=== PATIENT | female | born 1945 | race Caucasian/White ===

== ENCOUNTER 2017-09-08 14:48 | Inpatient (IN) | payer MEDICARE, OTHER, SELFPAY ==
[2017-09-08] VITALS (8 sets, daily range): BP systolic 129–151; BP diastolic 51–86; PULSE 98–124; RESP 20–26; TEMP 34.7–36.8; O2SAT 97–99; BMI 18.6; BMI 17.3
--- NOTE | 2017-09-08 15:17 | RAD_ITS ---
STUDY: X-RAY CHEST REASON FOR EXAM: Female, 71 years old. Cough and chest congestion. TECHNIQUE: PA and lateral views of the chest. COMPARISON: Prior comparison studies are not available for review at this time. FINDINGS: Lungs are hyperexpanded. There is perihilar interstitial thickening present in both lungs. There is minimal lung markings at the right lung apex possibly related to large bleb or bulla. There is a nodular area in the right upper lobe that may represent pulmonary fibrosis. There may be right basilar subsegmental atelectasis. There is no demonstrated pleural abnormality. There is mild cardiac enlargement. Normal mediastinum and lindsey. There is prominence of the pulmonary hilar arteries with peripheral pulmonary vascular congestion. There is atherosclerotic calcification of the aortic arch with tortuosity. There is demineralization of the osseous structures. Normal visualized ribs, clavicles, and shoulders. There is no demonstrated abnormality of the visualized soft tissue structures of the upper abdomen. RAD/Chest PA and Lateral IMPRESSION: 1. Abnormal appearance of the right upper lobe with minimal lung markings suggests large bleb or bulla and questionable pulmonary nodule. 2. Cardiomegaly and pulmonary congestion. Electronically Signed: Shireen Arango MD at 16:41 EST , Service support ,
--- NOTE | 2017-09-08 15:17 | EKG12_ITS ---
Test Reason : SOB Blood Pressure : / mmHG Vent. Rate : 090 BPM Atrial Rate : 105 BPM P-R Int : 000 ms QRS Dur : 096 ms QT Int : 360 ms P-R-T Axes : 000 151 052 degrees QTc Int : 440 ms Atrial fibrillation Abnormal ECG Confirmed by RAJANI VERAS, LIDA ([id number]), staff editor CRISTIAN CAMARA ([id number] on 09/14/2017 4:04:37 PM Referred By: LEENA Confirmed By:LIDA GERARD MD
[2017-09-08] MEDS: Ipratropium/Albuterol Sulfate 3 ML AMPUL.NEB INHALATION (15:35)
[2017-09-08] MEDS: 0.9% Normal Saline 1,000 ML 1000 ML IV (16:00)
[2017-09-08 16:23] LABS: Absolute Neutrophil Count 9.2 X10^3/uL (2.0-7.7); Basophil# 0.01 X10^3/uL; Basophil% 0.1 % (0-1); Eosinophils% 0.8 % (0-5); Hematocrit 38.3 % (37-47); Hemoglobin 11.8 g/dl (12.0-15.0); Lymphocyte % 15.2 % (19-41); Mean Corp Hgb Conc 30.8 g/gl (32-36); Mean Corpuscular Hgb 26.2 pg (27.0-32.0); Mean Corpuscular Volume 84.9 fL (81-99); Mean Platelet Vol. 9.6 fl (6.2-12.0); Monocyte# 1.26 X10^3/uL; Monocyte% 10.1 % (0-10); Neutrophil # 9.22 X10^3/uL (2.7-7.7); Neutrophil % 73.5 % (47-70); Platelet Count 220 K/mm3 (150-450); RBC Distribution Width CV 16.1 % (11.6-14.6); RBC Distribution Width SD 49.5 fl (35.1-43.9); Red Blood Count 4.51 M/mm3 (4.2-5.4); White Blood Count 12.5 K/mm3 (4.4-11.0)
[2017-09-08 16:30] LABS: POSITIVE COUNT NO; POSITIVE DIFFERENTIAL NO; POSITIVE MORPHOLOGY NO
[2017-09-08 16:32] LABS: Anion Gap 3 (5-15); BUN 9 mg/dL (7-18); BUN/Creat Ratio 20.9 RATIO (10-20); Calcium,Total 8.5 mg/dL (8.5-10.1); Chloride 99 mmol/L (98-107); Creatinine, Serum 0.43 mg/dL (0.55-1.02); EST Glomerular Filtration Rate 153 mL/min (>60); Est Glom Filt Rate - Afr Amer 185 mL/min (>60); Estimated Creatinine Clearance 41.37 ml/min; Glucose 77 mg/dL (70-110); Potassium 4.6 mmol/L (3.5-5.1); Sodium Level 136 mmol/L (136-145)
[2017-09-08 16:41] LABS: Lactic Acid 1.3 mmol/L (0.4-2.0)
--- NOTE | 2017-09-08 17:14 | ED.VISSUMM ---
- ER Visit Summary Date of Service: 09/08/17 Chief Complaint: Cough History of Present Illness: The patient is a 71 F who presents with a cough. She has a history of recurrent pneumonias. She has had a previous lung resection with removal of the right upper lobe. She has a history of MRSA pneumonia. She states she has a chronic cough which has been worse particularly in the last 2-3 days. She was treated with Levaquin and recently completed this without improvement. She complains of generalized malaise and decreased energy. She did have a sputum culture last week which grew MRSA. With her allergies she would be limited to vancomycin or linezolid for treatment. She uses home oxygen as needed but has been needing to use it more in the last few days. Physical Examination: Afebrile heart rate 114 pulse ox 99% on 2 L. Heart irregularly irregular and tachycardic Patient has right-sided rales no rhonchi or wheezing Abdomen soft Test Results: Chest x-ray limited given chronic changes but does show some cardiomegaly and pulmonary congestion as well as abnormal appearance of the right upper lobe. Laboratory studies notable for white blood cell count 12.5 normal lactic acid. Blood cultures were sent. EKG showed atrial fibrillation at a rate of 90. Emergency Department Course and Treatment: Patient was given IV fluids and a DuoNeb aerosol. On reevaluation her heart rate has ranged from 90s-110. Given recent positive sputum culture with increasing shortness of breath and sputum and right-sided rales I do believe this represents pneumonia. Patient was given IV vancomycin. She will be discussed with the hospitalist and admitted. Treatment Plan: [] Disposition: Admit Impression: MRSA pneumonia Atrial fibrillation with RVR This note was generated with Luminescent dictation software. It may contain incorrect words, spelling, and punctuation that were not noted in review of the chart prior to signing ED Disposition - Plan for ED Patient: Chief Complaint: Cold Sx Referrals: Christo Wilde MD [Primary Care Provider] -
--- NOTE | 2017-09-08 17:51 | PCM.HP.STD ---
<Matteo Silva - Last Filed: 09/08/17 17:51> Problem List (1) MRSA (methicillin resistant staphylococcus aureus) pneumonia Status: Acute Qualifiers: Laterality: unspecified laterality (2) Atrial fibrillation with RVR Status: Acute (3) Takotsubo cardiomyopathy Status: Resolved Comment: EF in August of 2016 was 45-50%, previously 20% (4) Bronchiectasis Status: Chronic (5) Pulmonary hypertension Status: Chronic (6) Cardiomyopathy Status: Chronic (7) RUL resection Status: Resolved History of Present Illness Date of Admission: 09/08/17 Chief Complaint: cough The patient is a 71 year old F with a history of bronchiectasis, RUL lobectomy, prior MRSA, pseudomonas, and fungal pneumonia, pulmonary HTN, chronic A fib, and nonischemic cardiomyopathy who presented to the ER with a worsening cough. She initially presented to Dr. Angel about 10 days ago complaining of a productive cough and was placed on 7 days of levaquin, provided a sputum culture, and told to follow up. She also has been chronically taking azithromycin 3 days per week prophylactically as she has a very severe pneumonia history. She was supposed to have an outpatient appointment with ID but she felt worse so she reported to the ER prior to this occurring. She is SOB with exertion. She denies fevers, chills, pleuritic pain, CP. No hemoptysis. She is producing copious amounts of green sputum. She is tachycardic with AF but has no sensation of it denying palpitations or racing in her chest. She has no LH or dizziness. She reports generalized weakness and malaise. No muscle aches. No dysuria. No diarrhea, N/V. [] Past Medical History Past Medical History (Chronic Problems): Chronic Problems (Last Reviewed 09/01/17 @ 16:14 by Mita Busch) PND (paroxysmal nocturnal dyspnea) (Chronic) Bronchiectasis (Chronic) Atrial fibrillation (Chronic) Pulmonary hypertension (Chronic) Cardiomyopathy (Chronic) Chronic atrial fibrillation (Chronic) Hypomagnesemia (Chronic) Recheck magnesium in 48 hours Allergies sulfamethoxazole [From Bactrim] Allergy (Verified 09/08/17 14:51) Hives trimethoprim [From Bactrim] Allergy (Verified 09/08/17 14:51) Hives verapamil Allergy (Verified 09/08/17 14:51) Unknown itraconazole Adverse Reaction (Verified 09/08/17 14:51) Vomiting SODIUM PENTATHOL Allergy (Uncoded 09/08/17 14:51) Other JAUNDICE Home Medications: Ambulatory Orders Medication Instructions Recorded Multivitamin [Daily Multiple 1 ea PO DAILY 08/04/15 Vitamin] Apixaban [Eliquis] 2.5 mg PO BID #60 tab 12/05/15 Levothyroxine [Synthroid] 88 mcg PO DAILY@0600 #30 tab 12/05/15 Magnesium Oxide [Mag-Ox 400] 400 mg PO BIDCM #60 tab 12/05/15 Trazodone HCl [Desyrel] 50 mg PO QHS #30 tab 12/05/15 Cholecalciferol (Vitamin D3) 2,000 unit PO DAILY 10/30/16 [Vitamin D3] Albuterol Inhaler [Ventolin Hfa] 1 - 2 puff INHALATION Q2H PRN PRN 11/21/16 #1 inhaler Diltiazem CD [Cardizem CD] 120 mg PO Q12 #60 cap 11/21/16 Famotidine [Pepcid] 20 mg PO BID PRN 04/18/17 Formoterol Fumarate [Perforomist] 20 mcg INHALATION BID 04/18/17 Guaifenesin [Mucinex] 1,200 mg PO BID PRN 04/18/17 Sertraline HCl [Zoloft] 50 mg PO DAILY 04/18/17 albuterol sulfate 2.5 mg/3 mL 2.5 mg INHALATION Q4H PRN ml 08/31/17 (0.083 %) solution for nebulization ipratropium-albuterol 0.5 mg-3 3 ml INHALATION Q6H PRN ml 08/31/17 mg(2.5 mg base)/3 mL nebulization soln lorazepam 0.5 mg tablet 0.5 mg PO QDAY PRN tab 08/31/17 carvedilol 12.5 mg tablet 6.25 mg PO BID #30 tab 09/01/17 furosemide 20 mg tablet 20 mg PO DAILY PRN 09/01/17 Surgical History: cholecystectomy, hysterectomy, - - thyroidectomy, cholecystectemy, bile duct stones removed, right sided partial lung resection Psychiatric History: No pertinent psych hx 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 Denies: Chills, Fever, Weight Change Eyes: Denies: Blurred vision, Double vision, Vision Change HEENT: Denies: Difficulty Hearing, Difficulty Swallowing, Head Aches, Hearing Changes, Nasal bleeding, Nasal Congestion, Sinus Congestion, Sinus Drainage Cardiovascular: Denies: Chest Pain, Chest Pressure, Chest Tightness, Edema, Heaviness, Light Headedness, Palpitations, Paroxysmal Noc. Dyspnea, Syncope Respiratory: Reports: Cough, Shortness of Breath, Shortness of breath upon exertion, Sputum production. Denies: Pleuritic Pain, Shortness of breath at rest, Wheezing Gastrointestinal: Denies: Abdominal Pain, Diarrhea, Nausea, Vomiting Genitourinary: Denies: Dysuria Musculoskeletal: Denies: Joint Pain, Joint Tenderness Skin: Denies: Rash, Wounds Neurological: Denies: Numbness, Tingling, Focal weakness Psychiatric: Denies: Anxiety, Depression, Homicidal Ideations, Suicidal Ideations Hematologic/ Lymphatic: Denies: Easy Bruising, Easy Bleeding VTE Information - Inpt Only VTE Present on Admission: No VTE Mechan Device Prophylaxis: SCD's VTE Pharm Prophylaxis ordered?: Yes Patient Problems: Active and Suspected Problems (Last Reviewed 09/01/17 @ 16:14 by Mita Busch) MRSA (methicillin resistant staphylococcus aureus) pneumonia (Acute) - Physical Exam General: Alert, Oriented x3, Cooperative HEENT: Atraumatic, PERRLA, EOMI, Normocephalic Neck: Supple, No JVD, Negative Carotid Bruits Lungs: Rales - BL Cardiovascular: Irregular Rate, Tachycardic Abdomen: Bowel Sounds Present, Soft, Non Tender Extremities: No edema, Capillary Refill Less than 3 Seconds Skin: No rashes, No breakdown Musculoskeletal: No Tenderness to Palpation of Joints or Extremities Neurological: Cranial nerves II-XII grossly intact Psych/Mental Status: Normal Affect, Appropriate, Alert and oriented to time, place, person, mood and affect Vital Signs Temp Pulse Resp BP Pulse Ox 94.4 F L 116 H 26 H 151/86 H 98 09/08/17 14:51 09/08/17 17:30 09/08/17 17:30 09/08/17 17:30 09/08/17 17:30 Oxygen Flow Rate 2 Oxygen Delivery Method Nasal Cannula Weight: 52.3 kg Body Mass Index (BMI) 18.6 Laboratory Tests Past 24 Hrs 09/08/17 09/08/17 09/08/17 16:00 16:00 16:00 WBC 12.5 H RBC 4.51 Hgb 11.8 L Hct 38.3 MCV 84.9 MCH 26.2 L MCHC 30.8 L RDW 16.1 H RDW Differential 49.5 H Plt Count 220 MPV 9.6 Immature Gran % (Auto) 0.300 Neut % (Auto) 73.5 H Lymph % (Auto) 15.2 L Garland % (Auto) 10.1 H Eos % (Auto) 0.8 Baso % (Auto) 0.1 Absolute Neuts (auto) 9.2 H Absolute Lymphs (auto) 1.90 Total Counted Not Reportable Sodium 136 Potassium 4.6 Chloride 99 Carbon Dioxide 34.0 H Anion Gap 3 L BUN 9 Creatinine 0.43 L Estim Creat Clear Calc 41.37 Est GFR (MDRD) Af Amer 185 Est GFR (MDRD) Non-Af 153 BUN/Creatinine Ratio 20.9 H Glucose 77 Lactic Acid 1.3 Calcium 8.5 Assessment/Plan Active and Suspected Problems (Last Reviewed 09/01/17 @ 16:14 by Mita Busch) MRSA (methicillin resistant staphylococcus aureus) pneumonia (Acute) 1. Pneumonia - MRSA as per recent sputum culture. Hx pseudomonas and fungal (unknown type). Pt known to Dr. Angel - C/S, also C/S to ID. Start Vanc and Zosyn. Blood cultures pending. Add mucinex, aerosols, PEP, IS, HOB elevation. + Leukocytosis, tachycardia. CO2 is slightly elevated with a low anion gap. Lactate is negative. CXR also shows cardiomegaly and pulmonary congestion. 2. AF with RVR - likely 2/2 acute infection. Continue home diltiazem, coreg, and eliquis and trend. Pt of Dr. Welsh. 3. Hx Bronchiectasis, partial RU lobectomy, and pulmonary HTN complicating above 4. HTN somewhat elevated - trend 5. nonischemic cardiomyopathy - Per most recent cardiology note last EF was 45-50% and RVSP 40 mmHg from 2016 at that time recommended a repeat echo. 6. Hypothyroid - continue synthroid DVT ppx: eliquis DC planning: pt reports generalized weakness, get PTOT This patient was seen by Matteo Silva PA-C under the supervision of Dr. Bruce. <Marin Bruce - Last Filed: 09/08/17 18:20> Problem List (1) MRSA (methicillin resistant staphylococcus aureus) pneumonia Status: Acute Qualifiers: Laterality: unspecified laterality (2) Acute on chronic respiratory failure with hypoxia and hypercapnia Status: Acute (3) Acute respiratory failure with hypoxia Status: Acute (4) Acute respiratory insufficiency Status: Acute (5) Atrial fibrillation with RVR Status: Acute (6) HCAP (healthcare-associated pneumonia) Status: Acute (7) Hemoptysis Status: Acute (8) Chronic atrial fibrillation Status: Chronic (9) PND (paroxysmal nocturnal dyspnea) Status: Chronic (10) Pulmonary hypertension Status: Chronic (11) RUL resection Status: Resolved (12) Takotsubo cardiomyopathy Status: Resolved Comment: EF in August of 2016 was 45-50%, previously 20% History of Present Illness The patient is a 71 year old F claims worsening cough. 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 Patient was on Levaquin but was not getting better. Notified of the culture results on Tuesday and was scheduled to see infectious disease doctor in the [facility] later on this month. Patient has just gotten worse during this time and presented to the emergency room. Patient's culture from the showed MRSA. Patient received vancomycin in the emergency room. Patient is being admitted for MRSA pneumonia and to initiate antibiotics. Patient has had MRSA pneumonia before. [] Past Medical History Allergies sulfamethoxazole [From Bactrim] Allergy (Verified 09/08/17 14:51) Hives trimethoprim [From Bactrim] Allergy (Verified 09/08/17 14:51) Hives verapamil Allergy (Verified 09/08/17 14:51) Unknown itraconazole Adverse Reaction (Verified 09/08/17 14:51) Vomiting SODIUM PENTATHOL Allergy (Uncoded 09/08/17 14:51) Other JAUNDICE Surgical History: cholecystectomy, hysterectomy, - Lives: Spouse/ Significant Other Smoking Status: Never smoker Tobacco Use: Non-smoker Alcohol: None Drugs: None - *Family History Maternal Family History: Family History (Last Reviewed 09/01/17 @ 16:14 by Mita Busch) Father Heart disease History Items: No pertinent history Paternal Family History: Family History (Last Reviewed 09/01/17 @ 16:14 by Mita Busch) Father Heart disease History Items: Cancer Review of Systems Constitutional: Reports: Malaise, Weakness, Fatigue. Denies: Chills, Fever, Weight Change Eyes: Denies: Blurred vision, Double vision, Vision Change HEENT: Denies: Difficulty Hearing, Difficulty Swallowing, Head Aches, Hearing Changes, Nasal bleeding, Nasal Congestion, Sinus Congestion, Sinus Drainage Cardiovascular: Denies: Chest Pain, Chest Pressure, Chest Tightness, Edema, Heaviness, Light Headedness, Palpitations, Paroxysmal Noc. Dyspnea, Syncope Respiratory: Reports: Cough, Shortness of Breath, Shortness of breath upon exertion, Sputum production. Denies: Pleuritic Pain, Shortness of breath at rest, Wheezing Gastrointestinal: Denies: Abdominal Pain, Diarrhea, Nausea, Vomiting Genitourinary: Denies: Dysuria Musculoskeletal: Denies: Joint Pain, Joint Tenderness Skin: Denies: Rash, Wounds Neurological: Denies: Focal weakness, Numbness, Tingling Psychiatric: Denies: Anxiety, Depression, Homicidal Ideations, Suicidal Ideations Hematologic/ Lymphatic: Denies: Easy Bruising, Easy Bleeding VTE Information - Inpt Only VTE Present on Admission: No VTE Pharm Prophylaxis ordered?: Yes - Physical Exam General: Alert, Oriented x3, Cooperative HEENT: Atraumatic, Normocephalic Neck: No Nodes, Thyroid Normal Size and Texture Lungs: - - Diminished on the right. Crackles throughout the left. Cardiovascular: Regular rate, Regular Rhythm, Normal S1, Normal S2, No murmurs Abdomen: Bowel Sounds Present, Soft, Non Tender Extremities: No edema, No Calf Tenderness Skin: No rashes, No breakdown Musculoskeletal: No Tenderness to Palpation of Joints or Extremities, No Muscle Wasting Psych/Mental Status: Normal Affect, Appropriate Vital Signs Temp Pulse Resp BP Pulse Ox 34.7 C L 116 H 26 H 151/86 H 98 09/08/17 14:51 09/08/17 17:30 09/08/17 17:30 09/08/17 17:30 09/08/17 17:30 Oxygen Flow Rate 2 Oxygen Delivery Method Nasal Cannula Weight: 52.3 kg Body Mass Index (BMI) 18.6 Laboratory Tests Past 24 Hrs 09/08/17 09/08/17 09/08/17 16:00 16:00 16:00 WBC 12.5 H RBC 4.51 Hgb 11.8 L Hct 38.3 MCV 84.9 MCH 26.2 L MCHC 30.8 L RDW 16.1 H RDW Differential 49.5 H Plt Count 220 MPV 9.6 Immature Gran % (Auto) 0.300 Neut % (Auto) 73.5 H Lymph % (Auto) 15.2 L Garland % (Auto) 10.1 H Eos % (Auto) 0.8 Baso % (Auto) 0.1 Absolute Neuts (auto) 9.2 H Absolute Lymphs (auto) 1.90 Total Counted Not Reportable Sodium 136 Potassium 4.6 Chloride 99 Carbon Dioxide 34.0 H Anion Gap 3 L BUN 9 Creatinine 0.43 L Estim Creat Clear Calc 41.37 Est GFR (MDRD) Af Amer 185 Est GFR (MDRD) Non-Af 153 BUN/Creatinine Ratio 20.9 H Glucose 77 Lactic Acid 1.3 Calcium 8.5 Assessment/Plan Seen and examined independently. Agree with the above note by the physician assistant passenger locomotive engineer. Data reviewed. 1. MRSA pneumonia: Positive sputum culture from the of this month. Patient be on vancomycin. Pulmonary toilet. Pulmonary as well as infectious disease will be on consultation. This is certainly exacerbated by the patient's underlying bronchiectasis. 2. Atrial fibrillation with RVR. Heart rate is into the low 100s-1 teens. Due the patient's Cardizem she takes at home. I do not feel the patient needs IV Cardizem at this time. 3. Sepsis: Present on admission. Patient makes at least 2 out of 4 Sirs criteria. Patient's temperature was registered as low but I think that was not correct but nonetheless patient is technically septic. This would likely be due to the patient's pneumonia. 4. DVT prophylaxis: Patient is anticoagulated. Code Visit Inpatient E&M: 89486 Init Hosp L3
--- NOTE | 2017-09-08 18:01 | HP.PCM_ITS ---
<Matteo Silva - Last Filed: 09/08/17 17:51> Problem List (1) MRSA (methicillin resistant staphylococcus aureus) pneumonia Status: Acute Qualifiers: Laterality: unspecified laterality (2) Atrial fibrillation with RVR Status: Acute (3) Takotsubo cardiomyopathy Status: Resolved Comment: EF in August of 2016 was 45-50%, previously 20% (4) Bronchiectasis Status: Chronic (5) Pulmonary hypertension Status: Chronic (6) Cardiomyopathy Status: Chronic (7) RUL resection Status: Resolved History of Present Illness Date of Admission: 09/08/17 Chief Complaint: cough The patient is a 71 year old F with a history of bronchiectasis, RUL lobectomy, prior MRSA, pseudomonas, and fungal pneumonia, pulmonary HTN, chronic A fib, and nonischemic cardiomyopathy who presented to the ER with a worsening cough. She initially presented to Dr. Angel about 10 days ago complaining of a productive cough and was placed on 7 days of levaquin, provided a sputum culture , and told to follow up. She also has been chronically taking azithromycin 3 days per week prophylactically as she has a very severe pneumonia history. She was supposed to have an outpatient appointment with ID but she felt worse so she reported to the ER prior to this occurring. She is SOB with exertion. She denies fevers, chills, pleuritic pain, CP. No hemoptysis. She is producing copious amounts of green sputum. She is tachycardic with AF but has no sensation of it denying palpitations or racing in her chest. She has no LH or dizziness. She reports generalized weakness and malaise. No muscle aches. No dysuria. No diarrhea, N/V. [] Past Medical History Past Medical History (Chronic Problems): Chronic Problems (Last Reviewed 09/01/17 @ 16:14 by Mita Busch) PND (paroxysmal nocturnal dyspnea) (Chronic) Bronchiectasis (Chronic) Atrial fibrillation (Chronic) Pulmonary hypertension (Chronic) Cardiomyopathy (Chronic) Chronic atrial fibrillation (Chronic) Hypomagnesemia (Chronic) Recheck magnesium in 48 hours Allergies sulfamethoxazole [From Bactrim] Allergy (Verified 09/08/17 14:51) Hives trimethoprim [From Bactrim] Allergy (Verified 09/08/17 14:51) Hives verapamil Allergy (Verified 09/08/17 14:51) Unknown itraconazole Adverse Reaction (Verified 09/08/17 14:51) Vomiting SODIUM PENTATHOL Allergy (Uncoded 09/08/17 14:51) Other JAUNDICE Home Medications: Ambulatory Orders Medication Instructions Recorded Multivitamin [Daily Multiple 1 ea PO DAILY 08/04/15 Vitamin] Apixaban [Eliquis] 2.5 mg PO BID #60 tab 12/05/15 Levothyroxine [Synthroid] 88 mcg PO DAILY@0600 #30 tab 12/05/15 Magnesium Oxide [Mag-Ox 400] 400 mg PO BIDCM #60 tab 12/05/15 Trazodone HCl [Desyrel] 50 mg PO QHS #30 tab 12/05/15 Cholecalciferol (Vitamin D3) 2,000 unit PO DAILY 10/30/16 [Vitamin D3] Albuterol Inhaler [Ventolin Hfa] 1 - 2 puff INHALATION Q2H PRN PRN 11/21/16 #1 inhaler Diltiazem CD [Cardizem CD] 120 mg PO Q12 #60 cap 11/21/16 Famotidine [Pepcid] 20 mg PO BID PRN 04/18/17 Formoterol Fumarate [Perforomist] 20 mcg INHALATION BID 04/18/17 Guaifenesin [Mucinex] 1,200 mg PO BID PRN 04/18/17 Sertraline HCl [Zoloft] 50 mg PO DAILY 04/18/17 albuterol sulfate 2.5 mg/3 mL 2.5 mg INHALATION Q4H PRN ml 08/31/17 (0.083 %) solution for nebulization ipratropium-albuterol 0.5 mg-3 3 ml INHALATION Q6H PRN ml 08/31/17 mg(2.5 mg base)/3 mL nebulization soln lorazepam 0.5 mg tablet 0.5 mg PO QDAY PRN tab 08/31/17 carvedilol 12.5 mg tablet 6.25 mg PO BID #30 tab 09/01/17 furosemide 20 mg tablet 20 mg PO DAILY PRN 09/01/17 Surgical History: cholecystectomy, hysterectomy, - - thyroidectomy, cholecystectemy, bile duct stones removed, right sided partial lung resection Psychiatric History: No pertinent psych hx 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 Denies: Chills, Fever, Weight Change Eyes: Denies: Blurred vision, Double vision, Vision Change HEENT: Denies: Difficulty Hearing, Difficulty Swallowing, Head Aches, Hearing Changes, Nasal bleeding, Nasal Congestion, Sinus Congestion, Sinus Drainage Cardiovascular: Denies: Chest Pain, Chest Pressure, Chest Tightness, Edema, Heaviness, Light Headedness, Palpitations, Paroxysmal Noc. Dyspnea, Syncope Respiratory: Reports: Cough, Shortness of Breath, Shortness of breath upon exertion, Sputum production. Denies: Pleuritic Pain, Shortness of breath at rest, Wheezing Gastrointestinal: Denies: Abdominal Pain, Diarrhea, Nausea, Vomiting Genitourinary: Denies: Dysuria Musculoskeletal: Denies: Joint Pain, Joint Tenderness Skin: Denies: Rash, Wounds Neurological: Denies: Numbness, Tingling, Focal weakness Psychiatric: Denies: Anxiety, Depression, Homicidal Ideations, Suicidal Ideations Hematologic/ Lymphatic: Denies: Easy Bruising, Easy Bleeding VTE Information - Inpt Only VTE Present on Admission: No VTE Mechan Device Prophylaxis: SCD's VTE Pharm Prophylaxis ordered?: Yes Patient Problems: Active and Suspected Problems (Last Reviewed 09/01/17 @ 16:14 by Mita Busch) MRSA (methicillin resistant staphylococcus aureus) pneumonia (Acute) - Physical Exam General: Alert, Oriented x3, Cooperative HEENT: Atraumatic, PERRLA, EOMI, Normocephalic Neck: Supple, No JVD, Negative Carotid Bruits Lungs: Rales - BL Cardiovascular: Irregular Rate, Tachycardic Abdomen: Bowel Sounds Present, Soft, Non Tender Extremities: No edema, Capillary Refill Less than 3 Seconds Skin: No rashes, No breakdown Musculoskeletal: No Tenderness to Palpation of Joints or Extremities Neurological: Cranial nerves II-XII grossly intact Psych/Mental Status: Normal Affect, Appropriate, Alert and oriented to time, place, person, mood and affect Vital Signs Temp Pulse Resp BP Pulse Ox 94.4 F L 116 H 26 H 151/86 H 98 09/08/17 14:51 09/08/17 17:30 09/08/17 17:30 09/08/17 17:30 09/08/17 17:30 Oxygen Flow Rate 2 Oxygen Delivery Method Nasal Cannula Weight: 52.3 kg Body Mass Index (BMI) 18.6 Laboratory Tests Past 24 Hrs 09/08/17 09/08/17 09/08/17 16:00 16:00 16:00 WBC 12.5 H RBC 4.51 Hgb 11.8 L Hct 38.3 MCV 84.9 MCH 26.2 L MCHC 30.8 L RDW 16.1 H RDW Differential 49.5 H Plt Count 220 MPV 9.6 Immature Gran % (Auto) 0.300 Neut % (Auto) 73.5 H Lymph % (Auto) 15.2 L [place] % (Auto) 10.1 H Eos % (Auto) 0.8 Baso % (Auto) 0.1 Absolute Neuts (auto) 9.2 H Absolute Lymphs (auto) 1.90 Total Counted Not Reportable Sodium 136 Potassium 4.6 Chloride 99 Carbon Dioxide 34.0 H Anion Gap 3 L BUN 9 Creatinine 0.43 L Estim Creat Clear Calc 41.37 Est GFR (MDRD) Af Amer 185 Est GFR (MDRD) Non-Af 153 BUN/Creatinine Ratio 20.9 H Glucose 77 Lactic Acid 1.3 Calcium 8.5 Assessment/Plan Active and Suspected Problems (Last Reviewed 09/01/17 @ 16:14 by Mita Busch) MRSA (methicillin resistant staphylococcus aureus) pneumonia (Acute) 1. Pneumonia - MRSA as per recent sputum culture. Hx pseudomonas and fungal ( unknown type). Pt known to Dr. Angel - C/S, also C/S to ID. Start Vanc and Zosyn. Blood cultures pending. Add mucinex, aerosols, PEP, IS, HOB elevation. + Leukocytosis, tachycardia. CO2 is slightly elevated with a low anion gap. Lactate is negative. CXR also shows cardiomegaly and pulmonary congestion. 2. AF with RVR - likely 2/2 acute infection. Continue home diltiazem, coreg, and eliquis and trend. Pt of Dr. Welsh. 3. Hx Bronchiectasis, partial RU lobectomy, and pulmonary HTN complicating above 4. HTN somewhat elevated - trend 5. nonischemic cardiomyopathy - Per most recent cardiology note last EF was 45- 50% and RVSP 40 mmHg from 2016 at that time recommended a repeat echo. 6. Hypothyroid - continue synthroid DVT ppx: eliquis DC planning: pt reports generalized weakness, get PTOT This patient was seen by Matteo Silva PA-C under the supervision of Dr. Bruce. <Marin Bruce - Last Filed: 09/08/17 18:20> Problem List (1) MRSA (methicillin resistant staphylococcus aureus) pneumonia Status: Acute Qualifiers: Laterality: unspecified laterality (2) Acute on chronic respiratory failure with hypoxia and hypercapnia Status: Acute (3) Acute respiratory failure with hypoxia Status: Acute (4) Acute respiratory insufficiency Status: Acute (5) Atrial fibrillation with RVR Status: Acute (6) HCAP (healthcare-associated pneumonia) Status: Acute (7) Hemoptysis Status: Acute (8) Chronic atrial fibrillation Status: Chronic (9) PND (paroxysmal nocturnal dyspnea) Status: Chronic (10) Pulmonary hypertension Status: Chronic (11) RUL resection Status: Resolved (12) Takotsubo cardiomyopathy Status: Resolved Comment: EF in August of 2016 was 45-50%, previously 20% History of Present Illness The patient is a 71 year old F claims worsening cough. Saw her shingle cutter on and had a sputum culture done that ventricular MRSA. Patient was on Levaquin but was not getting better. Notified of the culture results on Tuesday and was scheduled to see infectious disease doctor in the [place] later on this month. Patient has just gotten worse during this time and presented to the emergency room. Patient's culture from the showed MRSA. Patient received vancomycin in the emergency room. Patient is being admitted for MRSA pneumonia and to initiate antibiotics. Patient has had MRSA pneumonia before. [] Past Medical History Allergies sulfamethoxazole [From Bactrim] Allergy (Verified 09/08/17 14:51) Hives trimethoprim [From Bactrim] Allergy (Verified 09/08/17 14:51) Hives verapamil Allergy (Verified 09/08/17 14:51) Unknown itraconazole Adverse Reaction (Verified 09/08/17 14:51) Vomiting SODIUM PENTATHOL Allergy (Uncoded 09/08/17 14:51) Other JAUNDICE Surgical History: cholecystectomy, hysterectomy, - Lives: Spouse/ Significant Other Smoking Status: Never smoker Tobacco Use: Non-smoker Alcohol: None Drugs: None - *Family History Maternal Family History: Family History (Last Reviewed 09/01/17 @ 16:14 by Mita Busch) Father Heart disease History Items: No pertinent history Paternal Family History: Family History (Last Reviewed 09/01/17 @ 16:14 by Mita Busch) Father Heart disease History Items: Cancer Review of Systems Constitutional: Reports: Malaise, Weakness, Fatigue. Denies: Chills, Fever, Weight Change Eyes: Denies: Blurred vision, Double vision, Vision Change HEENT: Denies: Difficulty Hearing, Difficulty Swallowing, Head Aches, Hearing Changes, Nasal bleeding, Nasal Congestion, Sinus Congestion, Sinus Drainage Cardiovascular: Denies: Chest Pain, Chest Pressure, Chest Tightness, Edema, Heaviness, Light Headedness, Palpitations, Paroxysmal Noc. Dyspnea, Syncope Respiratory: Reports: Cough, Shortness of Breath, Shortness of breath upon exertion, Sputum production. Denies: Pleuritic Pain, Shortness of breath at rest, Wheezing Gastrointestinal: Denies: Abdominal Pain, Diarrhea, Nausea, Vomiting Genitourinary: Denies: Dysuria Musculoskeletal: Denies: Joint Pain, Joint Tenderness Skin: Denies: Rash, Wounds Neurological: Denies: Focal weakness, Numbness, Tingling Psychiatric: Denies: Anxiety, Depression, Homicidal Ideations, Suicidal Ideations Hematologic/ Lymphatic: Denies: Easy Bruising, Easy Bleeding VTE Information - Inpt Only VTE Present on Admission: No VTE Pharm Prophylaxis ordered?: Yes - Physical Exam General: Alert, Oriented x3, Cooperative HEENT: Atraumatic, Normocephalic Neck: No Nodes, Thyroid Normal Size and Texture Lungs: - - Diminished on the right. Crackles throughout the left. Cardiovascular: Regular rate, Regular Rhythm, Normal S1, Normal S2, No murmurs Abdomen: Bowel Sounds Present, Soft, Non Tender Extremities: No edema, No Calf Tenderness Skin: No rashes, No breakdown Musculoskeletal: No Tenderness to Palpation of Joints or Extremities, No Muscle Wasting Psych/Mental Status: Normal Affect, Appropriate Vital Signs Temp Pulse Resp BP Pulse Ox 34.7 C L 116 H 26 H 151/86 H 98 09/08/17 14:51 09/08/17 17:30 09/08/17 17:30 09/08/17 17:30 09/08/17 17:30 Oxygen Flow Rate 2 Oxygen Delivery Method Nasal Cannula Weight: 52.3 kg Body Mass Index (BMI) 18.6 Laboratory Tests Past 24 Hrs 09/08/17 09/08/17 09/08/17 16:00 16:00 16:00 WBC 12.5 H RBC 4.51 Hgb 11.8 L Hct 38.3 MCV 84.9 MCH 26.2 L MCHC 30.8 L RDW 16.1 H RDW Differential 49.5 H Plt Count 220 MPV 9.6 Immature Gran % (Auto) 0.300 Neut % (Auto) 73.5 H Lymph % (Auto) 15.2 L [place] % (Auto) 10.1 H Eos % (Auto) 0.8 Baso % (Auto) 0.1 Absolute Neuts (auto) 9.2 H Absolute Lymphs (auto) 1.90 Total Counted Not Reportable Sodium 136 Potassium 4.6 Chloride 99 Carbon Dioxide 34.0 H Anion Gap 3 L BUN 9 Creatinine 0.43 L Estim Creat Clear Calc 41.37 Est GFR (MDRD) Af Amer 185 Est GFR (MDRD) Non-Af 153 BUN/Creatinine Ratio 20.9 H Glucose 77 Lactic Acid 1.3 Calcium 8.5 Assessment/Plan Seen and examined independently. Agree with the above note by the physician grooming assistant. Data reviewed. 1. MRSA pneumonia: Positive sputum culture from the of this month. Patient be on vancomycin. Pulmonary toilet. Pulmonary as well as infectious disease will be on consultation. This is certainly exacerbated by the patient' s underlying bronchiectasis. 2. Atrial fibrillation with RVR. Heart rate is into the low 100s-1 teens. Due the patient's Cardizem she takes at home. I do not feel the patient needs IV Cardizem at this time. 3. Sepsis: Present on admission. Patient makes at least 2 out of 4 Sirs criteria. Patient's temperature was registered as low but I think that was not correct but nonetheless patient is technically septic. This would likely be due to the patient's pneumonia. 4. DVT prophylaxis: Patient is anticoagulated. Code Visit Inpatient E&M: 17755 Init Hosp L3
[2017-09-08] MEDS: Carvedilol 6.25 MG Tablet PO (21:38)
[2017-09-08] MEDS: traZODone 50 MG Tablet PO (21:38)
[2017-09-08] MEDS: dilTIAZem CD 120 MG Capsule PO (21:38)
[2017-09-08] MEDS: APIXABAN 2.5 MG TABLET PO (21:46)
[2017-09-09] VITALS (15 sets, daily range): BP systolic 103–124; BP diastolic 47–71; PULSE 82–113; RESP 12–20; TEMP 36.6–36.8; O2SAT 96–100
[2017-09-09] MEDS: Albuterol 2.5 MG/3 ML VIAL.NEB. INHALATION (04:10)
[2017-09-09] MEDS: Levothyroxine 88 MCG Tablet PO (06:07)
[2017-09-09 06:38] LABS: Hematocrit 38.9 % (37-47); Hemoglobin 12.1 g/dl (12.0-15.0); Mean Corp Hgb Conc 31.1 g/gl (32-36); Mean Corpuscular Hgb 26.4 pg (27.0-32.0); Mean Corpuscular Volume 84.7 fL (81-99); Mean Platelet Vol. 9.4 fl (6.2-12.0); Platelet Count 205 K/mm3 (150-450); RBC Distribution Width SD 49.4 fl (35.1-43.9); Red Blood Count 4.59 M/mm3 (4.2-5.4); White Blood Count 8.2 K/mm3 (4.4-11.0)
[2017-09-09 06:44] LABS: Scan Indicated on CBC? Y/N NO
[2017-09-09 06:57] LABS: BUN 4 mg/dL (7-18); Estimated Creatinine Clearance 38.46 ml/min; Glucose 75 mg/dL (70-110)
[2017-09-09 06:58] LABS: Anion Gap 6 (5-15); BUN/Creat Ratio 10.1 RATIO (10-20); Calcium,Total 8.4 mg/dL (8.5-10.1); Chloride 99 mmol/L (98-107); EST Glomerular Filtration Rate 168 mL/min (>60); Est Glom Filt Rate - Afr Amer 204 mL/min (>60); Potassium 3.9 mmol/L (3.5-5.1); Sodium Level 137 mmol/L (136-145)
[2017-09-09] MEDS: Budesonide Respules 0.5 MG/2 ML AMPUL.NEB. INHALATION ×2 (07:07→20:09)
--- NOTE | 2017-09-09 08:31 | CON.PCM_ITS ---
Problem List (1) MRSA (methicillin resistant staphylococcus aureus) pneumonia Status: Acute Qualifiers: Laterality: unspecified laterality Lung location: unspecified part of lung Qualified Code(s): J15.212 - Pneumonia due to Methicillin resistant Staphylococcus aureus (2) Acute on chronic respiratory failure with hypoxia and hypercapnia Status: Acute (3) RUL resection Status: Chronic (4) Bronchiectasis Status: Chronic Qualifiers: (5) Pulmonary hypertension Status: Chronic (6) Cardiomyopathy Status: Chronic (7) Chronic atrial fibrillation Status: Chronic Reason for Consult Date of Consultation: 09/09/17 Reason for Consultation: MRSA pneumonia History of Present Illness: The patient is a 71 year old F with past medical history as below, well known to pulmonary medicine from admissions and outpatient, who presented to the ER on 09/08/17 with complaints of increased shortness of breath and weakness. The patient was actually seen in the pulmonary clinic on August 31 for bronchiectasis exacerbation, she was placed on Levaquin with subsequent failed therapy. A sputum culture was then obtained and showed MRSA. The patient was to go to infectious disease, however felt much worse in the last 2 days so presented to the ER. On presentation to the ER, she reported increased weakness , shortness of breath with exertion, and copious amounts of green, thick sputum. Patient does have a history of A. fib and was noted to be tachycardic on arrival. She denied any palpitations, chest pain, dizziness, or syncope. Workup in the ER included chest x-ray which was read as abnormal appearance of the right upper lobe with minimal lung markings suggestive of bleb or bulla and questionable pulmonary nodule. There is also cardiomegaly and pulmonary congestion. Patient did have initial leukocytosis of 12,500, however this has resolved today. Neutrophils are 73.5%, lymphocytes 50.2%. Hemoglobin was stable at 11.8. Serum bicarb 34.0, suggestive of chronic CO2 retention. Lactate was normal as well as troponin. Initial BP 129/84, pulse 114, RR 20, 94.4?F, 99% on 2 L of her chronic oxygen. She has required 2-4 liters of oxygen supplementation since arrival, with increased demand with exertion. She is currently afebrile at 97.9?F. She is still frequently coughing up copious amounts of green sputum, but this has slightly decreased. She denies any hemoptysis, however does have a history of this secondary to Eliquis therapy for her atrial fibrillation. She complains of her shortness of breath being somewhat worse than her normal, especially with activity. Patient denies any fever or chills, nausea, vomiting, or diarrhea. She states overall, she feels improved from a pulmonary standpoint. The patient did well overnight and did not require any BiPAP therapy. She does have a history of Takotsubo cardiomyopathy, but this has since resolved as evidenced by echocardiogram in August 2016. Patient follows with Dr. Welsh. She also has history of pulmonary hypertension. She was scheduled for repeat echocardiogram today at 1300 as an outpatient. Her last pulmonary function tests were in January 2017 and showed worsening function, with the presence of a mixed ventilatory defect that was overall severe nature. There was also an associated moderate reduction in diffusing capacity with a 12% reduction from previous study. 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 Past Medical History Past Medical History (Chronic Problems): Chronic Problems (Last Reviewed 09/01/17 @ 16:14 by Mita Busch) RUL resection (Chronic) PND (paroxysmal nocturnal dyspnea) (Chronic) Bronchiectasis (Chronic) Atrial fibrillation (Chronic) Pulmonary hypertension (Chronic) Cardiomyopathy (Chronic) Chronic atrial fibrillation (Chronic) Hypomagnesemia (Chronic) Recheck magnesium in 48 hours Allergies sulfamethoxazole [From Bactrim] Allergy (Verified 09/08/17 14:51) Hives tetracycline Allergy (Verified 09/08/17 19:54) Hives trimethoprim [From Bactrim] Allergy (Verified 09/08/17 14:51) Hives verapamil Allergy (Verified 09/08/17 14:51) Unknown itraconazole Adverse Reaction (Verified 09/08/17 19:54) chest tightness w/ upper and loewr extremity weakness warfarin [From Coumadin] Adverse Reaction (Verified 09/08/17 19:54) gi bleed SODIUM [place]ATH[place] Allergy (Uncoded 09/08/17 19:54) jaundice/hives JAUNDICE Home Medications: Ambulatory Orders Medication Instructions Recorded Multivitamin [Daily Multiple 1 ea PO DAILY 08/04/15 Vitamin] Cholecalciferol (Vitamin D3) 2,000 unit PO DAILY 10/30/16 [Vitamin D3] Albuterol Inhaler [Ventolin Hfa] 1 - 2 puff INHALATION Q2H PRN PRN 11/21/16 #1 inhaler Formoterol Fumarate [Perforomist] 20 mcg INHALATION BID 04/18/17 Guaifenesin [Mucinex] 1,200 mg PO BID PRN 04/18/17 Sertraline HCl [Zoloft] 50 mg PO DAILY 04/18/17 albuterol sulfate 2.5 mg/3 mL 2.5 mg INHALATION Q4H PRN ml 08/31/17 (0.083 %) solution for nebulization ipratropium-albuterol 0.5 mg-3 3 ml INHALATION Q6H PRN ml 08/31/17 mg(2.5 mg base)/3 mL nebulization soln lorazepam 0.5 mg tablet 0.5 mg PO QDAY PRN tab 08/31/17 furosemide 20 mg tablet 20 mg PO DAILY PRN 09/01/17 Apixaban [Eliquis] 2.5 mg PO BID 09/08/17 Benzonatate 200 mg PO TID PRN 09/08/17 Budesonide [Pulmicort] 0.25 mg IH BID 09/08/17 Calcium Carbonate/Vitamin D3 1 each PO BID 09/08/17 [Calcium 600 + Vit D Caplet] Carvedilol [Coreg (Beta El)] 6.25 mg PO BID 09/08/17 Diltiazem CD [Cardizem CD] 120 mg PO Q12 09/08/17 Ferrous Gluconate 325 mg PO BIDCM 09/08/17 Fluticasone 0.05% [Flonase Nasal 2 spray NASAL DAILY 09/08/17 [place]] Levothyroxine [Synthroid] 88 mcg PO DAILY@0600 09/08/17 Magnesium Oxide [Mag-Ox 400] 400 mg PO BIDCM 09/08/17 Nystatin [Nystatin] 5 ml PO TID 09/08/17 Omeprazole [Omeprazole] 20 mg PO DAILY PRN 09/08/17 Trazodone HCl [Desyrel] 50 mg PO QHS 09/08/17 Surgical History: cholecystectomy, hysterectomy, - Psychiatric History: Anxiety [employer]OR [employer]ANCE LEARNING History: No pertinent [employer]ANCE LEARNING history Lives: Spouse/ Significant Other Smoking Status: Never smoker Tobacco Use: Non-smoker Alcohol: None Drugs: None - *Family History Maternal Family History: Family History (Last Reviewed 09/01/17 @ 16:14 by Mita Busch) Father Heart disease History Items: No pertinent history Paternal Family History: Family History (Last Reviewed 09/01/17 @ 16:14 by Mita Busch) Father Heart disease History Items: Cancer Review of Systems Constitutional: Reports: Weakness, Fatigue. Denies: Anorexia, Chills, Fever, Night Sweats, Weight Change Eyes: Denies: Conjunctivae Inflammation, Vision Change HEENT: Denies: Difficulty Swallowing, Head Aches, Nasal bleeding, Nasal Congestion, Sore Throat Cardiovascular: Reports: Paroxysmal Noc. Dyspnea - At times. Denies: Chest Pain , Chest Tightness, Edema, Light Headedness, Orthopnea, Palpitations, Syncope Respiratory: Reports: Cough, Shortness of breath at rest, Shortness of breath upon exertion, Sputum production, Wheezing. Denies: Hemoptysis, Pleuritic Pain Gastrointestinal: Denies: Abdominal Pain, Constipation, Diarrhea, Dyspepsia, Hematemesis, Hematochezia, Nausea, Melena, Vomiting Genitourinary: Denies: Dysuria, Hematuria, Retention Musculoskeletal: Denies: Back Pain, Muscle pain Skin: Denies: Dryness, Rash, Skin Changes Neurological: Denies: Balance problems, Change in Speech, Confusion, Numbness, Tingling Psychiatric: Reports: Anxiety. Denies: Depression, Suicidal Ideations Endocrine: Denies: Change in Body Habitus, Polydipsia, Polyuria Hematologic/ Lymphatic: Reports: Anemia, Easy Bruising, Easy Bleeding. Denies: Adenopathy Patient Problems: Active and Suspected Problems (Last Reviewed 09/01/17 @ 16:14 by Mita Busch) MRSA (methicillin resistant staphylococcus aureus) pneumonia (Acute) Subjective: Patient was seen and examined, she is sitting up in bed in no acute distress. She is on 2 L of oxygen and saturating adequately. She has mild conversational dyspnea. She denies any current shortness of breath or chest discomfort. She has been coughing up copious amounts of green sputum, denies any hemoptysis. Objective: Clinical Impression(s) from Imaging Studies Chest X-Ray 09/08/17 15:17 IMPRESSION: 1. Abnormal appearance of the right upper lobe with minimal lung markings suggests large bleb or bulla and questionable pulmonary nodule. 2. Cardiomegaly and pulmonary congestion. Electronically Signed: Shireen Arango MD at 16:41 EST , Service support , - Physical Exam General: Alert, Oriented x3, Cooperative, No apparent distress, - - Speaking in full sentences HEENT: Atraumatic, Normocephalic Oral: Moist Mucosa, No Gingival or Mucosal Lesions/ Ulcerations Neck: Supple, No Nodes, Trachea Midline Lungs: - - Globally diminished, expiratory wheezes and rhonchi. No rales. No significant dullness to percussion. Symmetrical expansion. Cardiovascular: Normal S1, Normal S2, No murmurs, Irregular Rate, Tachycardic Abdomen: Bowel Sounds Present, Soft, Non Tender, Non-Distended Extremities: No cyanosis, No edema, Capillary Refill Less than 3 Seconds, Clubbing Skin: No rashes, No breakdown Musculoskeletal: No Tenderness to Palpation of Joints or Extremities, Cachexia Lymphatic: No Cervical, Supraclavicular, or Inguinal Adenopathy Neurological: Cranial nerves II-XII grossly intact, Neuro grossly intact, Motor Exam 5/5 strength throughout Psych/Mental Status: Alert and oriented to time, place, person, mood and affect Vital Signs Temp Pulse Resp BP Pulse Ox 97.9 F 100 20 H 124/71 H 100 09/09/17 04:34 09/09/17 07:00 09/09/17 04:34 09/09/17 04:34 09/09/17 04:34 Oxygen Flow Rate 2 Oxygen Delivery Method Nasal Cannula Weight: 48.625 kg Body Mass Index (BMI) 17.3 Intake and Output for Last 24 Hours 09/07/17 09/08/17 09/09/17 23:59 23:59 23:59 Intake Total 810 / 810 374 / 374 Balance 810 / 810 374 / 374 Laboratory Tests Past 24 Hrs 09/08/17 09/08/17 09/09/17 20:06 22:03 06:20 WBC 8.2 RBC 4.59 Hgb 12.1 Hct 38.9 MCV 84.7 MCH 26.4 L MCHC 31.1 L RDW 16.0 H RDW Differential 49.4 H Plt Count 205 MPV 9.4 Sodium Potassium Chloride Carbon Dioxide Anion Gap BUN Creatinine Estim Creat Clear Calc Est GFR (MDRD) Af Amer Est GFR (MDRD) Non-Af BUN/Creatinine Ratio Glucose Calcium Troponin I < 0.02 < 0.02 09/09/17 06:20 WBC RBC Hgb Hct MCV MCH MCHC RDW RDW Differential Plt Count MPV Sodium 137 Potassium 3.9 Chloride 99 Carbon Dioxide 32.0 Anion Gap 6 BUN 4 L Creatinine 0.40 L Estim Creat Clear Calc 38.46 Est GFR (MDRD) Af Amer 204 Est GFR (MDRD) Non-Af 168 BUN/Creatinine Ratio 10.1 Glucose 75 Calcium 8.4 L Troponin I Assessment/Plan Active and Suspected Problems (Last Reviewed 09/01/17 @ 16:14 by Mita Busch) MRSA (methicillin resistant staphylococcus aureus) pneumonia (Acute) RECOMMENDATIONS 1. Wean oxygen supplementation to keep saturations 88-92%. 2. Encourage aggressive pulmonary toileting, incentive spirometer and Acapella 3. Increase activity as tolerated 4. Continue aerosols as ordered 5. Consult ID 6. Continue Eliquis for A. fib 7. Continue empiric antibiotics per ID recommendations, options for oral therapy are limited to Linezolid 8. Ambulatory pulse ox prior to discharge 9. Continue cardiac medications IMPRESSIONS 1. MRSA pneumonia/bronchiectasis exacerbation Patient with recent OV in pulmonary clinic, was placed on Levaquin with subsequent failed therapy, sputum was obtained and showed MRSA. Patient has extensive history of recurrent pneumonia bronchiectasis exacerbations. Currently on vancomycin, ID has been consulted. Aggressive pulmonary toileting , encouraged use of incentive spirometer and Acapella. Wean oxygen as tolerated to keep saturations 88-92%. She has a history of recurrent hemoptysis , however none recently. She remains afebrile and her leukocytosis has resolved. Continue her DuoNeb and Pulmicort aerosols, as well as as needed albuterol. Will hold off on systemic steroids since she is on Pulmicort. Anticipate discharge in 24-48 hours, pending antibiotic coverage. 2. Acute on chronic respiratory failure Secondary to #1. Patient wears chronic 2 L of oxygen supplementation. She is maintaining appropriate saturations on her baseline of 2 L. She may require an increase in oxygen supplementation with exertion. Patient will require ambulatory pulse ox prior to discharge. 3. Atrial fibrillation RVR on Eliquis/cardiomyopathy/COPD/pulmonary hypertension/RUL lung resection/thyroidectomy Complicates care, management, recovery, and prognosis. Continue her baseline medications as indicated. She did have some tachycardia on admission, this is likely due to her pneumonia. Thank you for the opportunity to participate in this patient's care, please do not hesitate to contact us with any further questions or concerns. This note was generated with [employer] dictation software. It may contain incorrect words, spelling, and punctuation that were not noted in checking the note before signing.
[2017-09-09] MEDS: dilTIAZem CD 120 MG Capsule PO ×2 (09:57→21:26)
[2017-09-09] MEDS: Magnesium Oxide 400 MG Tablet PO ×2 (09:57→17:38)
[2017-09-09] MEDS: Carvedilol 6.25 MG Tablet PO ×2 (09:57→21:26)
[2017-09-09] MEDS: APIXABAN 2.5 MG TABLET PO ×2 (09:58→21:26)
[2017-09-09] MEDS: Sertraline 50 MG Tablet PO (09:59)
--- NOTE | 2017-09-09 10:15 | NURSING ---
PT REFUSING THIS RN TO WEAN DOWN O2. PT STATES EVERYTIME THEY WEAN ME DOWN I END UP BACK ON IT AT HOME. I AM ON 2L AT HOME AND I WANT TO JUST KEEP IT THAT WAY. WILL NOTIFY
[2017-09-09] MEDS: LORazepam 0.5 MG Tablet PO (12:04)
[2017-09-09] MEDS: Ipratropium/Albuterol Sulfate 3 ML AMPUL.NEB INHALATION ×2 (12:44→20:09)
--- NOTE | 2017-09-09 12:48 | CASEMGMT ---
See STONEY RENEE Assessment Link. DC PLAN: Home on dc. Pt and do not anticipate any dc needs. STONEY RENEE discussed HHS, however pt feels she is able to f/u with physician office. No new needs identified. Dary HERNÁNDEZ RN ACM
--- NOTE | 2017-09-09 12:55 | CASEMGMT ---
Dr. Angel requested this RN CM check simms for Linezolid for patient who made be discharged over the weekend. STONEY RENEE called patient's pharmacy, [facility] in [place] to request simms check. Per pharmacist, he will call this case repairer back with estimated cost. Hakeem BLANDN, RN-BC, [facility]
--- NOTE | 2017-09-09 13:35 | CASEMGMT ---
Addendum entered by Amanda Mcguire 09/09/17 15:04: CASE WYNN: [id number] PA Original Note: STONEY RENEE received call back from pharmacist at [facility] [place] pharmacy. Per Alex, the patient has no coverage for Linezolid. Pharmacist provided this CM with PA for [employer]. RN THELMA notified Dr. Angel of the above. Dr. Angel reports patient is allergic to sulfas (Bactrim), and therefore, the only other treatment option will be PICC with home IV abx infusion of vanco. STONEY RENEE called [employer] ([phone]) and was directed to enter a prior authorization request electronically at [email or web address]. STONEY RENEE entered PA for a non-formulary med (Linezolid 600 mg BID, for 8 days), and was given a pending determination. STONEY RENEE notified weekend RN CM, Sarah Fraga, of outstanding PA. Sarah agrees to follow. No further home-going needs anticipated at this time. STONEY RENEE will continue to follow. Patient's [employer] ID for her prescription coverage is: [id number] Of note, Alex at [facility] in [place], patient's preferred pharmacy, notes he does not have enough linezolid to supply a full 8 days and would need to order more for Tuesday. Hakeem Fraga, STONEY RENEE, aware.
--- NOTE | 2017-09-09 14:16 | CHAPLAIN ---
patient is sleeping; two attempts made; left calling card
--- NOTE | 2017-09-09 14:17 | PN_ITS ---
<Matteo Silva - Last Filed: 09/09/17 14:12> Patient Problems: Active and Suspected Problems (Last Reviewed 09/01/17 @ 16:14 by Mita Busch) MRSA (methicillin resistant staphylococcus aureus) pneumonia (Acute) Subjective: Pt feels that she has significantly improved this morning. Her cough productive of yellow-green sputum continues this morning, she has noted no hemoptysis. She does feel short of breath, none at rest, however notable dyspnea with mild exertion such as walking in the room. She also notes that she feels somewhat short of breath with conversation. She has no fevers or chills. No diarrhea, no nausea or vomiting. - Physical Exam General: Alert, Oriented x3, Cooperative, - - frail HEENT: Atraumatic, PERRLA, EOMI, Normocephalic Neck: Supple, No JVD, Negative Carotid Bruits Lungs: Clear to auscultation, Normal air movement, Rales - Crackles most notable in the right lower, but also right upper sanchez, also crackles left lower field but less prominent than right. Cardiovascular: Regular rate, No murmurs, Irregular Rate - Irregularly irregular Abdomen: Bowel Sounds Present, Soft, Non Tender Extremities: No edema, Capillary Refill Less than 3 Seconds Skin: No rashes, No breakdown Musculoskeletal: No Tenderness to Palpation of Joints or Extremities Neurological: Cranial nerves II-XII grossly intact Psych/Mental Status: Normal Affect, Appropriate Vital Signs Temp Pulse Resp BP Pulse Ox 97.9 F 113 H 16 116/47 L 99 09/09/17 09:54 09/09/17 11:00 09/09/17 09:54 09/09/17 09:54 09/09/17 09:54 Oxygen Flow Rate 2 Oxygen Delivery Method Nasal Cannula Weight: 48.625 kg Body Mass Index (BMI) 17.3 Intake and Output for Last 24 Hours 09/07/17 09/08/17 09/09/17 23:59 23:59 23:59 Intake Total 810 / 810 690 / 690 Balance 810 / 810 690 / 690 Laboratory Tests Past 24 Hrs 09/08/17 09/08/17 09/09/17 20:06 22:03 06:20 WBC 8.2 RBC 4.59 Hgb 12.1 Hct 38.9 MCV 84.7 MCH 26.4 L MCHC 31.1 L RDW 16.0 H RDW Differential 49.4 H Plt Count 205 MPV 9.4 Sodium Potassium Chloride Carbon Dioxide Anion Gap BUN Creatinine Estim Creat Clear Calc Est GFR (MDRD) Af Amer Est GFR (MDRD) Non-Af BUN/Creatinine Ratio Glucose Calcium Troponin I < 0.02 < 0.02 09/09/17 06:20 WBC RBC Hgb Hct MCV MCH MCHC RDW RDW Differential Plt Count MPV Sodium 137 Potassium 3.9 Chloride 99 Carbon Dioxide 32.0 Anion Gap 6 BUN 4 L Creatinine 0.40 L Estim Creat Clear Calc 38.46 Est GFR (MDRD) Af Amer 204 Est GFR (MDRD) Non-Af 168 BUN/Creatinine Ratio 10.1 Glucose 75 Calcium 8.4 L Troponin I Assessment/Plan Active and Suspected Problems (Last Reviewed 09/01/17 @ 16:14 by Mita Busch) MRSA (methicillin resistant staphylococcus aureus) pneumonia (Acute) 1. Pneumonia - MRSA as per recent sputum culture. Hx pseudomonas and aspergillosis pna. Continue vancomycin. If tx to PO may need zyvox as she is allergic to bactrim and tetracyclines. Pt improving clinically however has conversational dyspnea and severe hx of bronchiectasis and pna. Failed outpatient therapy on levaquin and prophylactic azithromycin. Monitor for hemoptysis with eliquis therapy. 2. Chronic AF - RVR resolved. likely 2/2 acute infection. Continue home diltiazem, coreg, and eliquis and trend. Pt of Dr. Welsh. 3. Hx Bronchiectasis, partial RU lobectomy, and pulmonary HTN complicating above 4. HTN somewhat elevated - trend 5. nonischemic cardiomyopathy - Per most recent cardiology note last EF was 45- 50% and RVSP 40 mmHg from 2016 at that time recommended a repeat echo. 6. Hypothyroid - continue synthroid DVT ppx: eliquis DC planning: PTOT. Reassess in AM, she is clinically improving This patient was seen by Matteo Silva PA-C under the supervision of Dr. Holguin <Pablo Holguin - Last Filed: 09/09/17 18:32> Objective: Seen and examined. Patient has history of chronic bronchiectasis with recurrent episodes of pneumonia with MRSA, Klebsiella pneumoniae and Pseudomonas. She just completed a week of Levaquin given by Dr. Angel about a week ago. Currently on IV vancomycin for recent sputum culture MRSA positive on 09/01/2017. 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 Since then she is getting recurrent episodes of pneumonia. She denies history of COPD/chronic smoking - Physical Exam General: Alert, Oriented x3, Cooperative HEENT: Atraumatic, PERRLA, EOMI, Normocephalic Neck: Supple, No JVD, Negative Carotid Bruits Lungs: Diminished - Diminished breath sounds on right posterior lung secondary to lobectomy and also right apex., Rales, Short of Breath Cardiovascular: Regular rate, No murmurs, Irregular Rate Abdomen: Bowel Sounds Present, Soft, Non Tender Extremities: No edema, Capillary Refill Less than 3 Seconds Skin: No rashes, No breakdown Musculoskeletal: No Tenderness to Palpation of Joints or Extremities, Muscle Wasting Neurological: Cranial nerves II-XII grossly intact Psych/Mental Status: Normal Affect, Appropriate Vital Signs Temp Pulse Resp BP Pulse Ox 98.3 F 98 12 114/57 L 99 09/09/17 15:16 09/09/17 15:16 09/09/17 15:16 09/09/17 15:16 09/09/17 15:16 Oxygen Flow Rate 2 Oxygen Delivery Method Nasal Cannula Weight: 107 lb 3.196 oz Body Mass Index (BMI) 17.3 Intake and Output for Last 24 Hours 09/07/17 09/08/17 09/09/17 23:59 23:59 23:59 Intake Total 810 / 810 1021.8 / 1021.8 Balance 810 / 810 1021.8 / 1021.8 Laboratory Tests Past 24 Hrs 09/08/17 09/08/17 09/09/17 20:06 22:03 06:20 WBC 8.2 RBC 4.59 Hgb 12.1 Hct 38.9 MCV 84.7 MCH 26.4 L MCHC 31.1 L RDW 16.0 H RDW Differential 49.4 H Plt Count 205 MPV 9.4 Sodium Potassium Chloride Carbon Dioxide Anion Gap BUN Creatinine Estim Creat Clear Calc Est GFR (MDRD) Af Amer Est GFR (MDRD) Non-Af BUN/Creatinine Ratio Glucose Calcium Troponin I < 0.02 < 0.02 09/09/17 06:20 WBC RBC Hgb Hct MCV MCH MCHC RDW RDW Differential Plt Count MPV Sodium 137 Potassium 3.9 Chloride 99 Carbon Dioxide 32.0 Anion Gap 6 BUN 4 L Creatinine 0.40 L Estim Creat Clear Calc 38.46 Est GFR (MDRD) Af Amer 204 Est GFR (MDRD) Non-Af 168 BUN/Creatinine Ratio 10.1 Glucose 75 Calcium 8.4 L Troponin I Assessment/Plan This patient was seen in conjunction with Matteo ROY. I have independently interviewed and examined the patient and reviewed pertinent history, examination findings, laboratory and plan of management. I have reviewed the note and agree with the documented findings with the few additional points. In brief, patient is admitted for bronchiectasis exacerbation most rarely due to MRSA tracheobronchitis with history of chronic bronchiectasis and fungal ball. Patient had right lower lobectomy. Patient has severe protein calorie malnutrition with cachexia. Discussed with Dr. Landa. I have discussed my assessment with Matteo ROY and orders have been reviewed. Code Visit Inpatient E&M: 95969 Subs Hosp L2
--- NOTE | 2017-09-09 16:35 | PCM.HP.ID ---
Problem List (1) MRSA (methicillin resistant staphylococcus aureus) pneumonia Status: Acute Qualifiers: Laterality: unspecified laterality Lung location: unspecified part of lung Qualified Code(s): J15.212 - Pneumonia due to Methicillin resistant Staphylococcus aureus Reason for Consult: pneumonia Consulted by: Dr. Holguin History of Present Illness: The patient is a 71 year old F with recurrent MRSA pneumonia who presented with 1-1.5 weeks of increasing green thick purulent sputum, chills, SOB, and not feeling well. Was on levaquin for a week with worsening sx. Came to hospital, sputum cx was (+) for MRSA. Admitted, started on vanc, now feeling much better. Reports h/o rash with bactrim and tetracycline in the past, is not sure if she ever took doxycycline. Full ROS performed and neg except as noted above. - Medical History Past Medical History (Chronic Problems): Chronic Problems (Last Reviewed 09/01/17 @ 16:14 by Mita Busch) RUL resection (Chronic) PND (paroxysmal nocturnal dyspnea) (Chronic) Bronchiectasis (Chronic) Atrial fibrillation (Chronic) Pulmonary hypertension (Chronic) Cardiomyopathy (Chronic) Chronic atrial fibrillation (Chronic) Hypomagnesemia (Chronic) Recheck magnesium in 48 hours Allergies/Adverse Reactions: Allergies sulfamethoxazole [From Bactrim] Allergy (Verified 09/08/17 14:51) Hives tetracycline Allergy (Verified 09/08/17 19:54) Hives trimethoprim [From Bactrim] Allergy (Verified 09/08/17 14:51) Hives verapamil Allergy (Verified 09/08/17 14:51) Unknown itraconazole Adverse Reaction (Verified 09/08/17 19:54) chest tightness w/ upper and loewr extremity weakness warfarin [From Coumadin] Adverse Reaction (Verified 09/08/17 19:54) gi bleed SODIUM [place] Allergy (Uncoded 09/08/17 19:54) jaundice/hives JAUNDICE Home Medications: Ambulatory Orders Medication Instructions Recorded Multivitamin [Daily Multiple 1 ea PO DAILY 08/04/15 Vitamin] Cholecalciferol (Vitamin D3) 2,000 unit PO DAILY 10/30/16 [Vitamin D3] Albuterol Inhaler [Ventolin Hfa] 1 - 2 puff INHALATION Q2H PRN PRN 11/21/16 #1 inhaler Formoterol Fumarate [Perforomist] 20 mcg INHALATION BID 04/18/17 Guaifenesin [Mucinex] 1,200 mg PO BID PRN 04/18/17 Sertraline HCl [Zoloft] 50 mg PO DAILY 04/18/17 albuterol sulfate 2.5 mg/3 mL 2.5 mg INHALATION Q4H PRN ml 08/31/17 (0.083 %) solution for nebulization ipratropium-albuterol 0.5 mg-3 3 ml INHALATION Q6H PRN ml 08/31/17 mg(2.5 mg base)/3 mL nebulization soln lorazepam 0.5 mg tablet 0.5 mg PO QDAY PRN tab 08/31/17 furosemide 20 mg tablet 20 mg PO DAILY PRN 09/01/17 Apixaban [Eliquis] 2.5 mg PO BID 09/08/17 Benzonatate 200 mg PO TID PRN 09/08/17 Budesonide [Pulmicort] 0.25 mg IH BID 09/08/17 Calcium Carbonate/Vitamin D3 1 each PO BID 09/08/17 [Calcium 600 + Vit D Caplet] Carvedilol [Coreg (Beta El)] 6.25 mg PO BID 09/08/17 Diltiazem CD [Cardizem CD] 120 mg PO Q12 09/08/17 Ferrous Gluconate 325 mg PO BIDCM 09/08/17 Fluticasone 0.05% [Flonase Nasal 2 spray NASAL DAILY 09/08/17 [place]] Levothyroxine [Synthroid] 88 mcg PO DAILY@0600 09/08/17 Magnesium Oxide [Mag-Ox 400] 400 mg PO BIDCM 09/08/17 Nystatin [Nystatin] 5 ml PO TID 09/08/17 Omeprazole [Omeprazole] 20 mg PO DAILY PRN 09/08/17 Trazodone HCl [Desyrel] 50 mg PO QHS 09/08/17 - Social History SMOKING STATUS:: Never smoker Vital Signs Temp Pulse Resp BP Pulse Ox 98.3 F 98 12 114/57 L 99 09/09/17 15:16 09/09/17 15:16 09/09/17 15:16 09/09/17 15:16 09/09/17 15:16 Oxygen Flow Rate 2 Oxygen Delivery Method Nasal Cannula Weight: 48.625 kg Body Mass Index (BMI) 17.3 Laboratory Tests Past 24 Hrs 09/08/17 09/08/17 09/09/17 20:06 22:03 06:20 WBC 8.2 RBC 4.59 Hgb 12.1 Hct 38.9 MCV 84.7 MCH 26.4 L MCHC 31.1 L RDW 16.0 H RDW Differential 49.4 H Plt Count 205 MPV 9.4 Sodium Potassium Chloride Carbon Dioxide Anion Gap BUN Creatinine Estim Creat Clear Calc Est GFR (MDRD) Af Amer Est GFR (MDRD) Non-Af BUN/Creatinine Ratio Glucose Calcium Troponin I < 0.02 < 0.02 09/09/17 06:20 WBC RBC Hgb Hct MCV MCH MCHC RDW RDW Differential Plt Count MPV Sodium 137 Potassium 3.9 Chloride 99 Carbon Dioxide 32.0 Anion Gap 6 BUN 4 L Creatinine 0.40 L Estim Creat Clear Calc 38.46 Est GFR (MDRD) Af Amer 204 Est GFR (MDRD) Non-Af 168 BUN/Creatinine Ratio 10.1 Glucose 75 Calcium 8.4 L Troponin I - Other Studies Radiology: [] reviewed Other Studies: [] Route of nutrition/ use of supplements: [] Nutritional Intake: [] IV Site: [] Hernandez Catheter: [] - Physical Exam General: Alert, Oriented x3, Cooperative HEENT: Atraumatic, PERRLA, EOMI Neck: Supple, No Nodes Lungs: Rhonchi - on L side Cardiovascular: Regular rate, Regular Rhythm, No murmurs Abdomen: Bowel Sounds Present, Soft, Non Tender, Non-Distended Extremities: No edema Skin: No rashes IV Site: Peripheral, without redness Musculoskeletal: No Tenderness to Palpation of Joints or Extremities Neurological: Cranial nerves II-XII grossly intact - Assessment/Plan Antibiotics: [] Assessment/Plan: [] Active and Suspected Problems (Last Reviewed 09/01/17 @ 16:14 by Mita Busch) MRSA (methicillin resistant staphylococcus aureus) pneumonia (Acute) - much improved with IV vanc. It does seem like only po option would be linezolid, unless want to give trial of doxy to see if she reacts. Prior auth for linezolid has been started. She may also benefit from nasal decolonization with mupirocin to nares bid for 5 day course given mrsa recurrent infections. Thank you, will follow, d/w Dr. Holguin.
[2017-09-09] MEDS: traZODone 50 MG Tablet PO (21:26)
[2017-09-10] VITALS (9 sets, daily range): BP systolic 100–106; BP diastolic 44–61; PULSE 85–104; RESP 16–19; TEMP 36.7–36.8; O2SAT 96–100
[2017-09-10] MEDS: 0.9% NaCl Peripheral Flush Adult/Peds IV (02:05)
[2017-09-10 02:21] LABS: Vancomycin, Trough Level 14.6 ug/mL (5.0-15.0)
[2017-09-10] MEDS: Levothyroxine 88 MCG Tablet PO (05:52)
[2017-09-10] MEDS: Budesonide Respules 0.5 MG/2 ML AMPUL.NEB. INHALATION (07:34)
[2017-09-10] MEDS: Ipratropium/Albuterol Sulfate 3 ML AMPUL.NEB INHALATION (07:34)
[2017-09-10] MEDS: Magnesium Oxide 400 MG Tablet PO (07:58)
[2017-09-10 08:43] LABS: Absolute Lymphocyte Count 1.09 X10^3/ul (0.83-4.51); Absolute Neutrophil Count 6.6 X10^3/uL (2.0-7.7); Eosinophil# 0.13 X10^3/uL; Eosinophils% 1.5 % (0-5); Hematocrit 39.5 % (37-47); Lymphocyte # 1.09 X10^3/ul (4.0); Mean Corp Hgb Conc 30.4 g/gl (32-36); Mean Corpuscular Hgb 25.9 pg (27.0-32.0); Mean Corpuscular Volume 85.3 fL (81-99); Mean Platelet Vol. 9.5 fl (6.2-12.0); Monocyte# 0.55 X10^3/uL; Monocyte% 6.6 % (0-10); Neutrophil # 6.61 X10^3/uL (2.7-7.7); Neutrophil % 78.8 % (47-70); Platelet Count 189 K/mm3 (150-450); RBC Distribution Width CV 15.7 % (11.6-14.6); RBC Distribution Width SD 48.9 fl (35.1-43.9); Red Blood Count 4.63 M/mm3 (4.2-5.4); White Blood Count 8.4 K/mm3 (4.4-11.0)
[2017-09-10 08:44] LABS: POSITIVE COUNT NO; POSITIVE DIFFERENTIAL NO; POSITIVE MORPHOLOGY NO
[2017-09-10] MEDS: dilTIAZem CD 120 MG Capsule PO (09:12)
[2017-09-10] MEDS: APIXABAN 2.5 MG TABLET PO (09:12)
[2017-09-10] MEDS: Sertraline 50 MG Tablet PO (09:12)
[2017-09-10] MEDS: Carvedilol 6.25 MG Tablet PO (09:12)
--- NOTE | 2017-09-10 10:23 | CASEMGMT ---
Prior Authorization for Linezolid [address] Angel informed CM that patient just informed him her insurance will be changing 09/12/2017. Hakeem Mcguire notified me that patient's preferred pharmacy does not have full amount in stock. CM will call other pharmacies with goal for patient to be able to fill complete prescription upon discharge. If patient discharges in 2018, CM will need to check new insurance for coverage. Jackie BLANDN, RN CM
--- NOTE | 2017-09-10 10:40 | PCM.PROGNOTE ---
Patient Problems: Active and Suspected Problems (Last Reviewed 09/01/17 @ 16:14 by Miat Busch) MRSA (methicillin resistant staphylococcus aureus) pneumonia (Acute) Subjective: Patient doing well overnight. Patient reports subjective improvement in overall condition. Patient is reporting improved cough. No fever was noted overnight. Did discuss with social work and patient will be able to get Linezolid on discharge if necessary. - Physical Exam General: Alert, Oriented x3, Cooperative, - - Normal baseline conversational dyspnea. Cachectic. HEENT: Atraumatic, PERRLA, EOMI, Normocephalic, - - Some temporal wasting. No scleral icterus or injection noted. Oral: Moist Mucosa, No Gingival or Mucosal Lesions/ Ulcerations Neck: Supple, No JVD, No Nodes, Trachea Midline Lungs: Diminished, Rhonchi, Wheezes - Improved from previous, - - Symmetric expansion. No dullness to percussion Cardiovascular: Normal S1, Normal S2, Irregular Rate, Murmur, No rub noted, No Gallop Abdomen: Bowel Sounds Present, Soft, Non Tender, Non-Distended Extremities: No cyanosis, No edema, Capillary Refill Less than 3 Seconds, Clubbing Skin: - - No significant change compared to previous Musculoskeletal: No Tenderness to Palpation of Joints or Extremities, Arthritic Changes, Cachexia, Muscle Wasting Lymphatic: No Cervical, Supraclavicular, or Inguinal Adenopathy Neurological: Cranial nerves II-XII grossly intact, Neuro grossly intact, Sensory exam intact to light touch and pain Psych/Mental Status: Alert and oriented to time, place, person, mood and affect Vital Signs Temp Pulse Resp BP Pulse Ox 36.8 C 88 19 H 100/57 L 96 09/10/17 09:10 09/10/17 09:10 09/10/17 09:10 09/10/17 09:10 09/10/17 09:10 Oxygen Flow Rate 2 Oxygen Delivery Method Nasal Cannula Weight: 48.625 kg Body Mass Index (BMI) 17.3 Intake and Output for Last 24 Hours 09/08/17 09/09/17 09/10/17 23:59 23:59 23:59 Intake Total 810 / 810 1021.8 / 1021.8 793 / 793 Balance 810 / 810 1021.8 / 1021.8 793 / 793 Laboratory Tests Past 24 Hrs 09/10/17 09/10/17 01:35 08:30 WBC 8.4 RBC 4.63 Hgb 12.0 Hct 39.5 MCV 85.3 MCH 25.9 L MCHC 30.4 L RDW 15.7 H RDW Differential 48.9 H Plt Count 189 MPV 9.5 Immature Gran % (Auto) 0.100 Neut % (Auto) 78.8 H Lymph % (Auto) 13.0 L [place] % (Auto) 6.6 Eos % (Auto) 1.5 Baso % (Auto) 0.0 Absolute Neuts (auto) 6.6 Absolute Lymphs (auto) 1.09 Total Counted Not Reportable Vancomycin Trough 14.6 Assessment/Plan Active and Suspected Problems (Last Reviewed 09/01/17 @ 16:14 by Mita Busch) MRSA (methicillin resistant staphylococcus aureus) pneumonia (Acute) RECOMMENDATIONS 1. Wean oxygen supplementation to keep saturations 88-92%. 2. Encourage aggressive pulmonary toileting, incentive spirometer and Acapella 3. Increase activity as tolerated 4. Continue aerosols, cardiac medications, Eliquis and vancomycin as ordered 5. Possibly able to be discharged tomorrow to complete 10 day course of linezolid IMPRESSIONS 1. MRSA pneumonia/bronchiectasis exacerbation Patient was significant improvement over the last 24 hours on vancomycin therapy. Social work has been able to get patient approved for the nasal lid therapy. If patient continues to improve, can likely be discharged tomorrow to complete a 10-14 day course. Infectious disease has seen the patient. No indication for discontinuation of Eliquis therapy. 2. Acute on chronic respiratory failure Secondary to #1. Patient wears chronic 2 L of oxygen supplementation. She is maintaining appropriate saturations on her baseline of 2 L. She may require an increase in oxygen supplementation with exertion. Patient will require ambulatory pulse ox prior to discharge. 3. Atrial fibrillation RVR on Eliquis/cardiomyopathy/COPD/pulmonary hypertension/RUL lung resection/thyroidectomy Complicates care, management, recovery, and prognosis. Continue her baseline medications as indicated. She did have some tachycardia initially, but this is improved. Thank you for the opportunity to participate in this patient's care, please do not hesitate to contact us with any further questions or concerns. This note was generated with [employer] software. It may contain incorrect words, spelling, and punctuation that were not noted in checking the note before signing. Code Visit Inpatient E&M: 45077 Subs Hosp L2
[2017-09-10] MEDS: LORazepam 0.5 MG Tablet PO (11:08)
--- NOTE | 2017-09-10 13:46 | CASEMGMT ---
THELMA called [facility] and verified that they have 10 tabs in stock. 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 Jackie BLANDN, RN THELMA
--- NOTE | 2017-09-10 13:51 | PCM.DC ---
- Discharge Diagnoses Current Active Problems: Current Active and Chronic Problems (Last Reviewed 09/01/17 @ 16:14 by Mita Busch) MRSA (methicillin resistant staphylococcus aureus) pneumonia (Acute) You will use the following diet at home:: Cardiac Your food should be the consistency of: Regular Your liquids should be the consistency of: Regular/Thin Discharge Activity: Return to Normal Activity Allergies/Adverse Reactions: Allergies sulfamethoxazole [From Bactrim] Allergy (Verified 09/08/17 14:51) Hives tetracycline Allergy (Verified 09/08/17 19:54) Hives trimethoprim [From Bactrim] Allergy (Verified 09/08/17 14:51) Hives verapamil Allergy (Verified 09/08/17 14:51) Unknown itraconazole Adverse Reaction (Verified 09/08/17 19:54) chest tightness w/ upper and loewr extremity weakness warfarin [From Coumadin] Adverse Reaction (Verified 09/08/17 19:54) gi bleed SODIUM P[place]ATHOL Allergy (Uncoded 09/08/17 19:54) jaundice/hives JAUNDICE Medications to take at Discharge Multivitamin [Daily Multiple Vitamin] 1 ea PO DAILY 08/04/15 Cholecalciferol (Vitamin D3) [Vitamin D3] 2,000 unit PO DAILY 10/30/16 Albuterol Inhaler [Ventolin Hfa] 1 - 2 puff INHALATION Q2H PRN PRN #1 inhaler 11/21/16 Formoterol Fumarate [Perforomist] 20 mcg INHALATION BID 04/18/17 Guaifenesin [Mucinex] 1,200 mg PO BID PRN 04/18/17 Sertraline HCl [Zoloft] 50 mg PO DAILY 04/18/17 albuterol sulfate 2.5 mg/3 mL (0.083 %) solution for nebulization 2.5 mg INHALATION Q4H PRN ml 08/31/17 ipratropium-albuterol 0.5 mg-3 mg(2.5 mg base)/3 mL nebulization soln 3 ml INHALATION Q6H PRN ml 08/31/17 lorazepam 0.5 mg tablet 0.5 mg PO QDAY PRN tab 08/31/17 furosemide 20 mg tablet 20 mg PO DAILY PRN 09/01/17 Apixaban [Eliquis] 2.5 mg PO BID 09/08/17 Benzonatate 200 mg PO TID PRN 09/08/17 Budesonide [Pulmicort] 0.25 mg IH BID 09/08/17 Calcium Carbonate/Vitamin D3 [Calcium 600-Vit D3 400 Caplet] 1 each PO BID 09/08/17 Carvedilol [Coreg (Beta El)] 6.25 mg PO BID 09/08/17 Diltiazem CD [Cardizem CD] 120 mg PO Q12 09/08/17 Ferrous Gluconate 325 mg PO BIDCM 09/08/17 Fluticasone 0.05% [Flonase Nasal [place]] 2 spray NASAL DAILY 09/08/17 Levothyroxine [Synthroid] 88 mcg PO DAILY@0600 09/08/17 Magnesium Oxide [Mag-Ox 400] 400 mg PO BIDCM 09/08/17 Nystatin 5 ml PO TID 09/08/17 Omeprazole 20 mg PO DAILY PRN 09/08/17 Trazodone HCl [Desyrel] 50 mg PO QHS 09/08/17 Linezolid 600 mg PO Q12H #16 tab 09/10/17 The following prescriptions were given: Linezolid 600 mg PO Q12H #16 tab Primary Care Physician: Christo Wilde MD [Primary Care Provider] - Please follow up with your Primary Care Physician in: 1-2 weeks Please Follow Up With: Asim Angel MD When: 2 weeks Proposed Discharge Date: 09/10/17
--- NOTE | 2017-09-10 14:39 | PCM.DC.SUM ---
<Matteo Silva - Last Filed: 09/10/17 14:39> Discharge Date and Diagnosis - Problem List Patient Problems: Active and Suspected Problems (Last Reviewed 09/01/17 @ 16:14 by Mita Busch) MRSA (methicillin resistant staphylococcus aureus) pneumonia (Acute) Date of Admission: 09/08/17 Date of Discharge: 09/10/17 - Primary Discharge Diagnosis Active and Suspected Problems (Last Reviewed 09/01/17 @ 16:14 by Mita Busch) MRSA (methicillin resistant staphylococcus aureus) pneumonia (Acute) Chronic AF with RVR 2/2 acute illness Bronchiectasis HTN Nonischemic cardiomyopathy Hypothyroidism s/p partial lobectomy hx Pulmonary htn Chronic hypoxic respiratory failure. - Secondary Discharge Diagnosis Chronic Problems (Last Reviewed 09/01/17 @ 16:14 by Mita Busch) RUL resection (Chronic) PND (paroxysmal nocturnal dyspnea) (Chronic) Bronchiectasis (Chronic) Atrial fibrillation (Chronic) Pulmonary hypertension (Chronic) Cardiomyopathy (Chronic) Chronic atrial fibrillation (Chronic) Hypomagnesemia (Chronic) Recheck magnesium in 48 hours Hospital Course and Treatment Imaging Results: CXR -abnormal appearance of the right upper lobe with minimal lung markings suggests large bleb or bulla and questionable pulmonary nodule, cardiomegaly and pulmonary congestion. Adrian Landa - ID Operations: None Procedures: None Summary of Care Provided: Physical exam on day of discharge: General: Resting comfortably NAD Psych: A/Ox3 normal affect HEENT: PEARRLA AT NC Neck: Supple NT CV: RRR no m/t/r/g/h Resp: Significantly improved since yesterday with very faint fine crackles bilateral bases. Abd: [id number] Soft NT no guarding or rigidity Ext: DP2+= no edema Skin: W/D normal turgor Lymph/Heme: No active bleeding or adenopathy Neuro: CN2-12 intact Hospital course: The patient is a 71 year old F with a history of bronchiectasis, chronic hypoxic respiratory failure on home O2, partial lobectomy, and MRSA Pseudomonas and Aspergillus pneumonia who presented from home to the emergency room with worsening productive cough. Patient had been taking azithromycin 3 times a week prophylactically for pneumonia as she frequently gets pneumonia and had been on 7 days of Levaquin therapy per Dr. Angel and pulmonology, and recently had a sputum culture that at the time of presentation was demonstrating MRSA. Patient was admitted and started on vancomycin via IV. Pulmonology and infectious disease were consulted. She has chronic atrial fibrillation and initially her rate was tachycardic and this was felt to be related to her acute infectious process. The following morning her rate was controlled without any extra intervention with only antibiotic therapy and continuation of her home medications. She improved significantly overnight. She was off and on using 1-2 L of oxygen at home at her baseline, and required oxygen here. She was dyspneic somewhat at rest and with exertion and conversation. Infectious disease and pulmonology felt that linezolid therapy would be indicated as she is allergic to Bactrim and tetracycline. On the next day she continued to feel significant improvement in her shortness of breath, improvement in her cough, and stated desire to return home. We were able to get linezolid approved for her and recommended a more days of therapy to complete a 10 day course of antibiotics. She will need to follow-up with pulmonology as an outpatient in 2 weeks. She is discharged home in stable condition. [] Discharge Diet: Low fat/ Low Cholesterol, 2000 mg Sodium Diet Discharge Activity: Return to Normal Activity Home Medications: Medications to take at Discharge Multivitamin [Daily Multiple Vitamin] 1 ea PO DAILY 08/04/15 Cholecalciferol (Vitamin D3) [Vitamin D3] 2,000 unit PO DAILY 10/30/16 Albuterol Inhaler [Ventolin Hfa] 1 - 2 puff INHALATION Q2H PRN PRN #1 inhaler 11/21/16 Formoterol Fumarate [Perforomist] 20 mcg INHALATION BID 04/18/17 Guaifenesin [Mucinex] 1,200 mg PO BID PRN 04/18/17 Sertraline HCl [Zoloft] 50 mg PO DAILY 04/18/17 albuterol sulfate 2.5 mg/3 mL (0.083 %) solution for nebulization 2.5 mg INHALATION Q4H PRN ml 08/31/17 ipratropium-albuterol 0.5 mg-3 mg(2.5 mg base)/3 mL nebulization soln 3 ml INHALATION Q6H PRN ml 08/31/17 lorazepam 0.5 mg tablet 0.5 mg PO QDAY PRN tab 08/31/17 furosemide 20 mg tablet 20 mg PO DAILY PRN 09/01/17 Apixaban [Eliquis] 2.5 mg PO BID 09/08/17 Benzonatate 200 mg PO TID PRN 09/08/17 Budesonide [Pulmicort] 0.25 mg IH BID 09/08/17 Calcium Carbonate/Vitamin D3 [Calcium 600-Vit D3 400 Caplet] 1 each PO BID 09/08/17 Carvedilol [Coreg (Beta El)] 6.25 mg PO BID 09/08/17 Diltiazem CD [Cardizem CD] 120 mg PO Q12 09/08/17 Ferrous Gluconate 325 mg PO BIDCM 09/08/17 Fluticasone 0.05% [Flonase Nasal [place]] 2 spray NASAL DAILY 09/08/17 Levothyroxine [Synthroid] 88 mcg PO DAILY@0600 09/08/17 Magnesium Oxide [Mag-Ox 400] 400 mg PO BIDCM 09/08/17 Nystatin 5 ml PO TID 09/08/17 Omeprazole 20 mg PO DAILY PRN 09/08/17 Trazodone HCl [Desyrel] 50 mg PO QHS 09/08/17 Linezolid 600 mg PO Q12H #16 tab 09/10/17 Following Prescrptions Were Given to Patient: Linezolid 600 mg PO Q12H #16 tab Primary Care Physician: Christo Wilde MD [Primary Care Provider] - Please follow up with your Primary Care Physician in: 1-2 weeks Please Follow Up With: Asim Angel MD When: 2 weeks Disposition: Home Minutes spent on discharge:: 40 Patient Condition:: Stable Meaningful Use Info Meaningful Use Diagnoses (Choose all that apply): None applicable <Marin Bruce - Last Filed: 09/10/17 15:04> Discharge Date and Diagnosis - Primary Discharge Diagnosis Active and Suspected Problems (Last Reviewed 09/01/17 @ 16:14 by Mita Busch) MRSA (methicillin resistant staphylococcus aureus) pneumonia (Acute) - Secondary Discharge Diagnosis Chronic Problems (Last Reviewed 09/01/17 @ 16:14 by Mita Busch) RUL resection (Chronic) PND (paroxysmal nocturnal dyspnea) (Chronic) Bronchiectasis (Chronic) Atrial fibrillation (Chronic) Pulmonary hypertension (Chronic) Cardiomyopathy (Chronic) Chronic atrial fibrillation (Chronic) Hypomagnesemia (Chronic) Recheck magnesium in 48 hours Hospital Course and Treatment Operations: None Procedures: None Summary of Care Provided: Patient seen and examined in family. Agree with the above note by the physician psychiatric technician assistant. 71-year-old white female presents with shortness of breath and fever. Patient was found to have MRSA in sputum culture outpatient. Patient was directed to the emergency room. She was started on vancomycin. Patient was seen by infectious disease. The recommendation is for a total of 10 days of antibiotics. The patient will be discharged with a more days of a nasal lid. Patient follow-up with pulmonology as outpatient. Patient still does have crackles on exam but reduced from admission. Patient is already on home oxygen. [] Discharge Diet: Low fat/ Low Cholesterol, 2000 mg Sodium Diet Discharge Activity: Return to Normal Activity Disposition: Home Patient Condition:: Stable Meaningful Use Info Meaningful Use Diagnoses (Choose all that apply): None applicable Code Visit Inpatient E&M: 14088 Disch Hosp - seen with Matteo Silva
--- NOTE | 2017-09-10 14:52 | DS.PCM_ITS ---
<Matteo Silva - Last Filed: 09/10/17 14:39> Discharge Date and Diagnosis - Problem List Patient Problems: Active and Suspected Problems (Last Reviewed 09/01/17 @ 16:14 by Mita Busch) MRSA (methicillin resistant staphylococcus aureus) pneumonia (Acute) Date of Admission: 09/08/17 Date of Discharge: 09/10/17 - Primary Discharge Diagnosis Active and Suspected Problems (Last Reviewed 09/01/17 @ 16:14 by Mita Busch) MRSA (methicillin resistant staphylococcus aureus) pneumonia (Acute) Chronic AF with RVR 2/2 acute illness Bronchiectasis HTN Nonischemic cardiomyopathy Hypothyroidism s/p partial lobectomy hx Pulmonary htn Chronic hypoxic respiratory failure. - Secondary Discharge Diagnosis Chronic Problems (Last Reviewed 09/01/17 @ 16:14 by Mita Busch) RUL resection (Chronic) PND (paroxysmal nocturnal dyspnea) (Chronic) Bronchiectasis (Chronic) Atrial fibrillation (Chronic) Pulmonary hypertension (Chronic) Cardiomyopathy (Chronic) Chronic atrial fibrillation (Chronic) Hypomagnesemia (Chronic) Recheck magnesium in 48 hours Hospital Course and Treatment Imaging Results: CXR -abnormal appearance of the right upper lobe with minimal lung markings suggests large bleb or bulla and questionable pulmonary nodule, cardiomegaly and pulmonary congestion. Adrian Landa - ID Operations: None Procedures: None Summary of Care Provided: Physical exam on day of discharge: General: Resting comfortably NAD Psych: A/Ox3 normal affect HEENT: PEARRLA AT NC Neck: Supple NT CV: RRR no m/t/r/g/h Resp: Significantly improved since yesterday with very faint fine crackles bilateral bases. Abd: [id number] Soft NT no guarding or rigidity Ext: DP2+= no edema Skin: W/D normal turgor Lymph/Heme: No active bleeding or adenopathy Neuro: CN2-12 intact Hospital course: The patient is a 71 year old F with a history of bronchiectasis, chronic hypoxic respiratory failure on home O2, partial lobectomy, and MRSA Pseudomonas and Aspergillus pneumonia who presented from home to the emergency room with worsening productive cough. Patient had been taking azithromycin 3 times a week prophylactically for pneumonia as she frequently gets pneumonia and had been on 7 days of Levaquin therapy per Dr. Angel and pulmonology, and recently had a sputum culture that at the time of presentation was demonstrating MRSA. Patient was admitted and started on vancomycin via IV. Pulmonology and infectious disease were consulted. She has chronic atrial fibrillation and initially her rate was tachycardic and this was felt to be related to her acute infectious process. The following morning her rate was controlled without any extra intervention with only antibiotic therapy and continuation of her home medications. She improved significantly overnight. She was off and on using 1- 2 L of oxygen at home at her baseline, and required oxygen here. She was dyspneic somewhat at rest and with exertion and conversation. Infectious disease and pulmonology felt that linezolid therapy would be indicated as she is allergic to Bactrim and tetracycline. On the next day she continued to feel significant improvement in her shortness of breath, improvement in her cough, and stated desire to return home. We were able to get linezolid approved for her and recommended a more days of therapy to complete a 10 day course of antibiotics. She will need to follow-up with pulmonology as an outpatient in 2 weeks. She is discharged home in stable condition. [] Discharge Diet: Low fat/ Low Cholesterol, 2000 mg Sodium Diet Discharge Activity: Return to Normal Activity Home Medications: Medications to take at Discharge Multivitamin [Daily Multiple Vitamin] 1 ea PO DAILY 08/04/15 Cholecalciferol (Vitamin D3) [Vitamin D3] 2,000 unit PO DAILY 10/30/16 Albuterol Inhaler [Ventolin Hfa] 1 - 2 puff INHALATION Q2H PRN PRN #1 inhaler Formoterol Fumarate [Perforomist] 20 mcg INHALATION BID 04/18/17 Guaifenesin [Mucinex] 1,200 mg PO BID PRN 04/18/17 Sertraline HCl [Zoloft] 50 mg PO DAILY 04/18/17 albuterol sulfate 2.5 mg/3 mL (0.083 %) solution for nebulization 2.5 mg INHALATION Q4H PRN ml 08/31/17 ipratropium-albuterol 0.5 mg-3 mg(2.5 mg base)/3 mL nebulization soln 3 ml INHALATION Q6H PRN ml 08/31/17 lorazepam 0.5 mg tablet 0.5 mg PO QDAY PRN tab 08/31/17 furosemide 20 mg tablet 20 mg PO DAILY PRN 09/01/17 Apixaban [Eliquis] 2.5 mg PO BID 09/08/17 Benzonatate 200 mg PO TID PRN 09/08/17 Budesonide [Pulmicort] 0.25 mg IH BID 09/08/17 Calcium Carbonate/Vitamin D3 [Calcium 600-Vit D3 400 Caplet] 1 each PO BID 09/08 Carvedilol [Coreg (Beta El)] 6.25 mg PO BID 09/08/17 Diltiazem CD [Cardizem CD] 120 mg PO Q12 09/08/17 Ferrous Gluconate 325 mg PO BIDCM 09/08/17 Fluticasone 0.05% [Flonase Nasal [place]] 2 spray NASAL DAILY 09/08/17 Levothyroxine [Synthroid] 88 mcg PO DAILY@0600 09/08/17 Magnesium Oxide [Mag-Ox 400] 400 mg PO BIDCM 09/08/17 Nystatin 5 ml PO TID 09/08/17 Omeprazole 20 mg PO DAILY PRN 09/08/17 Trazodone HCl [Desyrel] 50 mg PO QHS 09/08/17 Linezolid 600 mg PO Q12H #16 tab 09/10/17 Following Prescrptions Were Given to Patient: Linezolid 600 mg PO Q12H #16 tab Primary Care Physician: Christo Wilde MD [Primary Care Provider] - Please follow up with your Primary Care Physician in: 1-2 weeks Please Follow Up With: Asim Angel MD When: 2 weeks Disposition: Home Minutes spent on discharge:: 40 Patient Condition:: Stable Meaningful Use Info Meaningful Use Diagnoses (Choose all that apply): None applicable <Marin Bruce - Last Filed: 09/10/17 15:04> Discharge Date and Diagnosis - Primary Discharge Diagnosis Active and Suspected Problems (Last Reviewed 09/01/17 @ 16:14 by Mita Busch) MRSA (methicillin resistant staphylococcus aureus) pneumonia (Acute) - Secondary Discharge Diagnosis Chronic Problems (Last Reviewed 09/01/17 @ 16:14 by Mita Busch) RUL resection (Chronic) PND (paroxysmal nocturnal dyspnea) (Chronic) Bronchiectasis (Chronic) Atrial fibrillation (Chronic) Pulmonary hypertension (Chronic) Cardiomyopathy (Chronic) Chronic atrial fibrillation (Chronic) Hypomagnesemia (Chronic) Recheck magnesium in 48 hours Hospital Course and Treatment Operations: None Procedures: None Summary of Care Provided: Patient seen and examined in family. Agree with the above note by the physician medical receptionist medical assistant. 71-year-old white female presents with shortness of breath and fever. Patient was found to have MRSA in sputum culture outpatient. Patient was directed to the emergency room. She was started on vancomycin. Patient was seen by infectious disease. The recommendation is for a total of 10 days of antibiotics. The patient will be discharged with a more days of a nasal lid. Patient follow-up with pulmonology as outpatient. Patient still does have crackles on exam but reduced from admission. Patient is already on home oxygen. [] Discharge Diet: Low fat/ Low Cholesterol, 2000 mg Sodium Diet Discharge Activity: Return to Normal Activity Disposition: Home Patient Condition:: Stable Meaningful Use Info Meaningful Use Diagnoses (Choose all that apply): None applicable Code Visit Inpatient E&M: 56502 Disch Hosp - seen with Matteo Silva
--- NOTE | 2017-09-10 15:54 | CASEMGMT ---
Addendum entered by Sarah Fraga 09/10/17 15:59: Carmencita, from [facility], called back to let me know that she spoke with Tiki. Carmencita states she accidentally entered the wrong ID number before. She verified that the cost is correct at $85. Carmencita states that she will call the patient to notify her of this finding. Jackie HERNÁNDEZ RN, CM Original Note: STONEY RENEE spoke with Carmencita, from [facility] ([place]). Carmencita states patient paid $85 for the entire prescription. She was unable to see the prior authorization in her system. I offered to fax the PA to her and she said she would rather call [employer]. I provided number to Tiki ( ). Carmencita states she will call me back if she has any problems, questions, or concerns. Carmencita states that if she receives the PA from [email or web address], she will refund the patient any amount necessary. Per Carmencita, patient's son picked up the amount of medicine available at this time. They will shrimp picker the remaining medicine when in stock. The entire amount was billed under her current, [email or web address], insurance. Destiney HERNÁNDEZ, STONEY RENEE
== END 2017-09-10 15:24 | disposition home or self-care (01) | DRG 871 ==
LOC: ED 15:49 → PCU 18:31
PROVIDERS: Physician Assistant; Emergency Provider Emergency Medicine; Family Provider Family Medicine; PCP Family Medicine
DX: A41.9 Sepsis, unspecified organism (principal); J96.20 Acute and chronic respiratory failure, unspecified whether with hypoxia or hypercapnia; E43 Unspecified severe protein-calorie malnutrition; J15.212 Pneumonia due to Methicillin resistant Staphylococcus aureus; I27.20 Pulmonary hypertension, unspecified; I42.9 Cardiomyopathy, unspecified; J47.0 Bronchiectasis with acute lower respiratory infection; R64 Cachexia; I48.2 Chronic atrial fibrillation; Z68.1 Body mass index [BMI] 19.9 or less, adult; Z99.81 Dependence on supplemental oxygen; I10 Essential (primary) hypertension; E03.9 Hypothyroidism, unspecified; Z90.2 Acquired absence of lung [part of]; Z88.3 Allergy status to other anti-infective agents
CPT/HCPCS: 36415; 71020; 80048; 80202; 83605; 84484; 85025; 85027; 87040; 93005; 94640; 94667; 94668; 97802; 99284; J7030; J7040; A4216

== ENCOUNTER → 2017-10-10 13:40 | Outpatient (CLI) | payer MEDICARE, OTHER, SELFPAY ==
--- NOTE | 2017-10-10 13:47 | CT_ITS ---
STUDY: CT CHEST WITHOUT CONTRAST REASON FOR EXAM: Female, 71 years old. Respiratory infection. Partial right lobectomy. 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 RADIATION DOSAGE (If Supplied By Facility): CTDIvol = ( 6.51 ) mGy, DLP = ( 250.45 ) mGycm TECHNIQUE: Transaxial imaging was performed without the administration of intravenous contrast material. Individualized dose optimization techniques were used for this CT. COMPARISON: October 31, 2016 and January 18, 2016. Chest x-ray September 08, 2017. FINDINGS: Right-sided volume loss. Emphysematous changes. Large area of airless lung right lung apex unchanged. Extensive bronchiectasis within soft tissue medial left upper lobe unchanged. Extensive right lower lobe bronchiectasis and to a lesser extent right middle lobe bronchiectasis unchanged. Scattered bronchiectasis in the left upper lobe and lingular segment. Subcentimeter focal area of pleural thickening posterior pleural surface left upper lobe unchanged. No masses left lower lobe. The finding on the prior study could have been secondary to volume averaging and patient motion. The heart is enlarged. Right atrial enlargement. Coronary artery calcifications. 4.8 x 2.2 cm well-circumscribed fluid collection, attenuation 10 Hounsfield units, adjacent to the right atrium compatible with pericardial effusion or pericardial cyst. Normal mediastinum. Normal hilar regions. Normal unenhanced pulmonary arteries. Normal aorta arch and descending thoracic aorta. Normal osseous structures. Scattered calcifications in the spleen. CT/Chest without Contrast IMPRESSION: No acute findings in the chest. No significant change since the prior study. Extensive postinflammatory changes involving the right lung not significantly changed. There is right-sided volume loss and extensive bronchiectasis. Bronchiectasis to a lesser extent involving the left upper lobe and lingular segment. Emphysematous changes. Cardiomegaly unchanged. Coronary calcifications. 4.8 cm fluid collection adjacent to the right atrium stable since November 2015 compatible with a localized pericardial effusion or more likely a pericardial cyst. Old granulomatous disease. Electronically Signed: Valentin Aiken MD at 4:08 EST , Service support ,
== END ==
PROVIDERS: Family Provider Family Medicine; PCP Family Medicine; Visit Provider Internal Medicine
DX: J47.0 Bronchiectasis with acute lower respiratory infection (principal)
CPT/HCPCS: 71250

== ENCOUNTER → 2017-10-11 21:07 | Outpatient (CLI) | payer MEDICARE, OTHER, SELFPAY | PROVIDERS: Family Provider Family Medicine; PCP Family Medicine; Visit Provider Internal Medicine Critical Care Medicine | DX: G47.10 Hypersomnia, unspecified (principal) | CPT/HCPCS: 95810 ==

== ENCOUNTER → 2017-10-20 10:52 | Outpatient (CLI) | payer MEDICARE, OTHER, SELFPAY ==
[2017-09-10 08:25] VITALS: BP 102/61
[2017-10-19 08:26] VITALS: BP 99/63; BMI 16.7
== END ==
PROVIDERS: Family Provider Family Medicine; PCP Family Medicine; Visit Provider Nurse Practitioner Acute Care
DX: R05 Cough (principal)
CPT/HCPCS: 87070; 87077; 87186; 87205

== ENCOUNTER → 2017-11-08 20:11 | Outpatient (CLI) | payer MEDICARE, OTHER, SELFPAY ==
[2017-09-10 08:25] VITALS: BP 102/61
[2017-10-19 08:26] VITALS: BP 99/63; BMI 16.7
== END ==
PROVIDERS: Family Provider Family Medicine; PCP Family Medicine; Visit Provider Nurse Practitioner Acute Care
DX: G47.33 Obstructive sleep apnea (adult) (pediatric) (principal)
CPT/HCPCS: 95811

== ENCOUNTER → 2017-11-28 13:25 | Outpatient (CLI) | payer MEDICARE, OTHER, SELFPAY | PROVIDERS: Family Provider Family Medicine; PCP Family Medicine; Visit Provider Nurse Practitioner Acute Care | DX: R05 Cough (principal) | CPT/HCPCS: 87070; 87077; 87186; 87205 ==

== ENCOUNTER 2017-12-06 14:00 | Inpatient (IN) | payer MEDICARE, OTHER, SELFPAY ==
[2017-12-06] VITALS (13 sets, daily range): BP systolic 100–132; BP diastolic 53–83; PULSE 88–117; RESP 18–29; TEMP 36.4–37.7; O2SAT 95–99; BMI 16.1
--- NOTE | 2017-12-06 14:21 | RAD_ITS ---
STUDY: X-RAY CHEST REASON FOR EXAM: Female, 71 years old. Increasing shortness of breath. History of surgery in the right lung for fungal infection. TECHNIQUE: Single AP portable view of the chest. COMPARISON: Chest, April 18, 2017. CT of the chest, October 10, 2017. FINDINGS: Again seen is what appears to be a large loculated apical pneumothorax versus bleb. There is density in the compressed lung along its inferior portion. Interstitial changes are again seen at both lung bases most marked on the right where there is patchy nodularity and bronchiectasis. There is no demonstrated pleural abnormality. The heart remains enlarged. Normal mediastinum. 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 Normal visualized pulmonary arteries. Normal visualized aortic arch and descending thoracic aorta. The thoracic spine is obscured by the mediastinum. Normal visualized ribs, clavicles, and shoulders. There is no demonstrated abnormality of the visualized soft tissue structures of the upper abdomen. RAD/Chest 1 View (Portable) IMPRESSION: No major interval change when compared to April 18, 2017. Electronically Signed: Crow Bustamante DO at 15:32 EDT Tel [phone], Service support ,
--- NOTE | 2017-12-06 14:21 | EKG12_ITS ---
Test Reason : SOB Blood Pressure : / mmHG Vent. Rate : 107 BPM Atrial Rate : 127 BPM P-R Int : 000 ms QRS Dur : 094 ms QT Int : 306 ms P-R-T Axes : 000 216 064 degrees QTc Int : 408 ms Atrial fibrillation Abnormal ECG Confirmed by RAJANI VERAS, LIDA ([id number]), editor producer CRISTIAN CAMARA ([id number]) on 12/08/2017 2:58:06 PM Referred By: aLuren Parisi Confirmed By:LIDA GERARD MD
[2017-12-06] MEDS: Ipratropium/Albuterol Sulfate 3 ML AMPUL.NEB INHALATION ×2 (14:36→19:36)
[2017-12-06] MEDS: 0.9% Normal Saline 1,000 ML 150 ML IV (14:42)
[2017-12-06 15:07] LABS: Absolute Lymphocyte Count 0.44 X10^3/ul (0.83-4.51); Absolute Neutrophil Count 5.3 X10^3/uL (2.0-7.7); Basophil# 0.02 X10^3/uL; Basophil% 0.3 % (0-1); Differential Indicated SCAN CRITERIA MET; Eosinophil# 0.07 X10^3/uL; Eosinophils% 1.1 % (0-5); Hematocrit 40.6 % (37-47); Hemoglobin 12.5 g/dl (12.0-15.0); Lymphocyte # 0.44 X10^3/ul (4.0); Lymphocyte % 7.1 % (19-41); Mean Corp Hgb Conc 30.8 g/gl (32-36); Mean Corpuscular Hgb 25.3 pg (27.0-32.0); Mean Corpuscular Volume 82.2 fL (81-99); Mean Platelet Vol. 10.4 fl (6.2-12.0); Monocyte# 0.33 X10^3/uL; Monocyte% 5.3 % (0-10); Neutrophil # 5.29 X10^3/uL (2.7-7.7); Neutrophil % 85.7 % (47-70); POSITIVE COUNT NO; POSITIVE DIFFERENTIAL YES; POSITIVE MORPHOLOGY NO; Platelet Count 178 K/mm3 (150-450); RBC Distribution Width CV 16.1 % (11.6-14.6); RBC Distribution Width SD 48.3 fl (35.1-43.9); Red Blood Count 4.94 M/mm3 (4.2-5.4); White Blood Count 6.2 K/mm3 (4.4-11.0)
[2017-12-06 15:12] LABS: Anion Gap 7 (5-15); BUN 9 mg/dL (7-18); BUN/Creat Ratio 15.9 RATIO (10-20); Calcium,Total 8.9 mg/dL (8.5-10.1); Chloride 92 mmol/L (98-107); Creatinine, Serum 0.57 mg/dL (0.55-1.02); EST Glomerular Filtration Rate 111 mL/min (>60); Est Glom Filt Rate - Afr Amer 134 mL/min (>60); Estimated Creatinine Clearance 35.88 ml/min; Glucose 97 mg/dL (74-106); Potassium 4.4 mmol/L (3.5-5.1); Sodium Level 133 mmol/L (136-145)
[2017-12-06 15:21] LABS: Lactic Acid 1.1 mmol/L (0.4-2.0)
[2017-12-06] MEDS: Ondansetron 4 MG/2 ML Vial IV (15:29)
[2017-12-06 15:30] LABS: Differential Comment SCANNED
--- NOTE | 2017-12-06 16:10 | ED.VISSUMM ---
- ER Visit Summary Date of Service: 12/06/17 Chief Complaint: [Shortness of breath] History of Present Illness: The patient is a 71 F [presents to the emergency department with shortness of breath that started yesterday. Patient developed a fever yesterday up to 100.8. Patient started having a cough with some white to green phlegm at times. Patient currently on Bactrim for lung infection that is supposed to be susceptible to Bactrim. Patient sees Dr. Asim Angel and she called their office today was instructed to come to the emergency department. Patient describes some exertional dyspnea. Patient describes some mild chest tightness. Patient also with history of atrial fibrillation and on Eliquis. Patient normally wears home O2 of 2 L.] Physical Examination: [HEENT-PERRLA, EOMI. Cranial nerves II through XII grossly intact. TMs clear. Mucous membranes moist. No adenopathy. Cardiovascular-regular rate and rhythm without murmur or ectopy Lungs-good aeration bilaterally. Patient with rhonchi and rales in the right lower lobe. Faint expiratory wheezes bilaterally. Mild tachypnea. No accessory muscle use or retractions. Abdomen-normoactive bowel sounds, soft, nontender, no rebound or rigidity, no peritoneal signs. Extremities-intact ?4, normal range of motion, normal pulses, atraumatic] Test Results: [EKG obtained arrival showed A. fib with a rate of 107 bpm. CBC with differential showed white count 6.2, hemoglobin 12.5, hematocrit 41, platelets 178. Chemistries unremarkable. Troponin was less than 0.02. Lactate was 1.1. Influenza was negative. Chest x-ray showed like chronic changes nothing new when compared with prior chest x-ray from August 2017.] Emergency Department Course and Treatment: [Patient had blood cultures and sputum culture ordered. Patient was given a DuoNeb aerosol. Patient was started on Zosyn and vancomycin after discussing case with Dr. Angel.] Treatment Plan: [Patient will be admitted for IV antibiotics] Disposition: [Admit] Impression: [Clinical pneumonia Bronchiectasis] This note was generated with [employer] software. It may contain incorrect words, spelling, and punctuation that were not noted in review of the chart prior to signing ED Disposition - Plan for ED Patient: Chief Complaint: Shortness of Breath Referrals: Christo Wilde MD [Primary Care Provider] -
--- NOTE | 2017-12-06 16:46 | PCM.HP.STD ---
Problem List (1) Chronic respiratory failure with hypoxia Status: Chronic (2) RUL resection Status: Chronic (3) Oral thrush Status: Acute (4) Bronchiectasis Status: Chronic Qualifiers: Bronchiectasis type: with acute lower respiratory infection Qualified Code(s): J47.0 - Bronchiectasis with acute lower respiratory infection (5) Atrial fibrillation Status: Chronic Qualifiers: Atrial fibrillation type: chronic Qualified Code(s): I48.2 - Chronic atrial fibrillation History of Present Illness Date of Admission: 12/06/17 Chief Complaint: Shortness of breath. Patient is a 71 years old female with history of bronchiectasis, presents to ED with worsening of shortness of breath, admitted on 12/06/17. She has been having respiratory symptoms for about one week, started on Bactrim as outpatient. However, not only the condition did not improve, but shortness of breath was getting worse. She also had low grade fever of 100.8, she was instructed to present to ED. She denied of any chest pain, but has increased congestion. She has minimal sputum productions and dyspnea with mild exertion. ED had contacted Dr. Angel, who is her machine zipper trimmer, recommended to treat this as pneumonia. She was started on Zosyn and vancomycin, with history of previous MRSA pneumonia. WBC is 6.2, temp 99.2, and lactic acid was 1.1. Past Medical History Past Medical History (Chronic Problems): Chronic Problems (Last Reviewed 11/28/17 @ 12:43 by Darcie Bailon) Chronic respiratory failure with hypoxia (Chronic) NEPTALI (obstructive sleep apnea) (Chronic) RUL resection (Chronic) PND (paroxysmal nocturnal dyspnea) (Chronic) Bronchiectasis (Chronic) Atrial fibrillation (Chronic) Pulmonary hypertension (Chronic) Cardiomyopathy (Chronic) Chronic atrial fibrillation (Chronic) Hypomagnesemia (Chronic) Recheck magnesium in 48 hours Allergies sulfamethoxazole [From Bactrim] Allergy (Verified 12/06/17 14:03) Hives PT STATES NOT ALLERGIC tetracycline Allergy (Verified 12/06/17 14:03) Hives trimethoprim [From Bactrim] Allergy (Verified 12/06/17 14:03) Hives verapamil Allergy (Verified 12/06/17 14:03) Unknown itraconazole Adverse Reaction (Verified 12/06/17 14:03) chest tightness w/ upper and loewr extremity weakness warfarin [From Coumadin] Adverse Reaction (Verified 12/06/17 14:03) gi bleed SODIUM PENTATHOL Allergy (Uncoded 12/06/17 14:03) jaundice/hives JAUNDICE Home Medications: Ambulatory Orders Medication Instructions Recorded Multivitamin [Daily Multiple 1 ea PO DAILY 08/04/15 Vitamin] Cholecalciferol (Vitamin D3) 2,000 unit PO DAILY 10/30/16 [Vitamin D3] Albuterol Inhaler [Ventolin Hfa] 1 - 2 puff INHALATION Q2H PRN PRN 11/21/16 #1 inhaler Formoterol Fumarate [Perforomist] 20 mcg INHALATION BID 04/18/17 Guaifenesin [Mucinex] 1,200 mg PO BID PRN 04/18/17 Sertraline HCl [Zoloft] 50 mg PO DAILY 04/18/17 albuterol sulfate 2.5 mg/3 mL 2.5 mg INHALATION Q4H PRN ml 08/31/17 (0.083 %) solution for nebulization lorazepam 0.5 mg tablet 0.5 mg PO DAILY PRN PRN tab 08/31/17 furosemide 20 mg tablet 20 mg PO DAILY PRN 09/01/17 Apixaban [Eliquis] 2.5 mg PO BID 09/08/17 Budesonide [Pulmicort] 0.25 mg IH BID 09/08/17 Calcium Carbonate/Vitamin D3 1 ea PO BID 09/08/17 [Calcium 600-Vit D3 400 Caplet] Carvedilol [Coreg (Beta El)] 6.25 mg PO BID 09/08/17 Ferrous Gluconate 325 mg PO BIDCM 09/08/17 Levothyroxine [Synthroid] 88 mcg PO DAILY@0600 09/08/17 Magnesium Oxide [Mag-Ox 400] 400 mg PO BIDCM 09/08/17 Omeprazole 20 mg PO DAILY PRN 09/08/17 traZODone [Desyrel] 50 mg PO QHS 09/08/17 benzonatate 100 mg capsule 100 mg PO TID PRN #90 cap 10/19/17 fluticasone 50 mcg/actuation nasal 2 spray INTRANASAL DAILY #16 g 11/28/17 spray,suspension nystatin 100,000 unit/mL oral 5 ml PO TID #200 ml 11/28/17 suspension diltiazem CD 120 mg 120 mg PO BID #60 cap 11/29/17 capsule,extended release 24 hr Methadone HCl [Methadone HCl] 5 mg PO BID 12/06/17 Sulfamethoxazole/Trimethoprim 1 each PO BID 12/06/17 [Sulfamethoxazole-Tmp Ss Tablet] Surgical History: cholecystectomy, hysterectomy, - Psychiatric History: Anxiety CURATOR OF [employer]USCRIPTS History: No pertinent CURATOR [employer]IP[employer] history Smoking Status: Never smoker - *Family History Maternal History Items: No pertinent history Paternal History Items: Cancer Review of Systems Comment: ROS: In general: Patient has been in fair health. She has been feeling ill with generalized weakness, malaise, and decreased appetite. She had low grade fever and some chills. HEENT: Unremarkable. Patient denied of any dizziness, chronic headache, blurred vision, double vision, dry mouth, or nasal congestion. CV/respiratory: Exertional dyspnea with only mild daily activities. She wears oxygen at home. She denied of any hemoptysis. GI: Patient denied any abdominal pain, nausea, vomiting, diarrhea, constipation, melena, or hematochezia. : Patient denied any significant urinary symptoms. Neurology: Unremarkable. There is no history of seizure as an adult. Psychological: Unremarkable. ?. Endocrine: Unremarkable. Musculoskeletal: Unremarkable. VTE Information - Inpt Only VTE Present on Admission: No VTE Mechan Device Prophylaxis: Knee High EDY Hose VTE Pharm Prophylaxis ordered?: Yes Objective: In general, patient is a cachectic appearing female, appears reasonably comfortable at rest. HEENT: Head is atraumatic, and normocephalic. Pupils are equal, round, and reactive to light and accommodations. Neck is supple. There is no lymphadenopathy, or thyromegaly. Oral mucosa is pink, and moist. There are no lesions. Heart: Auscultation is normal with regular rhythm and rate. There is no extra heart sounds, or murmurs. S1 and S2 are present. Point of maximal impulse is not displaced. Lungs: Coarse crackles mostly at right mid to upper lung sanchez. NO wheezing. Abdomen: Abdominal wall is non-tender, and non-distended. There is no palpable mass or organomegaly. Normoactive bowel sounds are present. Extremities: There is no cyanosis or clubbing. Peripheral pulses are palpable. There is no edema. Skin: There are no any skin discoloration or lesions. Neurological: CN II - XII are intact. Sensory and motor functions are grossly normal with no obvious deficit. Cerebellar functions are within normal range. Gait was not tested. - Physical Exam Vital Signs Temp Pulse Resp BP Pulse Ox 99.2 F H 106 H 29 H 127/69 H 97 12/06/17 16:17 12/06/17 16:17 12/06/17 16:17 12/06/17 16:17 12/06/17 16:17 Oxygen Flow Rate (L/min) 2 Oxygen Delivery Method Nasal Cannula Weight: 100 lb Body Mass Index (BMI) 16.1 Microbiology Past 72 Hours 12/06/17 14:40 Influenza Types A,B Direct FA (MEGHA) - Final Mucosa - Nose Laboratory Tests Past 24 Hrs 12/06/17 12/06/17 12/06/17 14:27 14:27 14:27 WBC 6.2 RBC 4.94 Hgb 12.5 Hct 40.6 MCV 82.2 MCH 25.3 L MCHC 30.8 L RDW 16.1 H RDW Differential 48.3 H Plt Count 178 MPV 10.4 Immature Gran % (Auto) 0.500 Neut % (Auto) 85.7 H Lymph % (Auto) 7.1 L [place] % (Auto) 5.3 Eos % (Auto) 1.1 Baso % (Auto) 0.3 Absolute Neuts (auto) 5.3 Absolute Lymphs (auto) 0.44 L Total Counted Not Reportable Differential Comment SCANNED Sodium 133 L Potassium 4.4 Chloride 92 L Carbon Dioxide 34.0 H Anion Gap 7 BUN 9 Creatinine 0.57 Estim Creat Clear Calc 35.88 Est GFR (MDRD) Af Amer 134 Est GFR (MDRD) Non-Af 111 BUN/Creatinine Ratio 15.9 Glucose 97 Lactic Acid 1.1 Calcium 8.9 Troponin I < 0.02 Assessment/Plan Patient is a 71 years old female with history of bronchiectasis, presents to ED with worsening of shortness of breath, admitted on 12/06/17. She has been having respiratory symptoms for about one week, started on Bactrim as outpatient. However, not only the condition did not improve, but shortness of breath was getting worse. She also had low grade fever of 100.8, she was instructed to present to ED. She denied of any chest pain, but has increased congestion. She has minimal sputum productions and dyspnea with mild exertion. ED had contacted Dr. Angel, who is her machine zipper trimmer, recommended to treat this as pneumonia. She was started on Zosyn and vancomycin, with history of previous MRSA pneumonia. WBC is 6.2, temp 99.2, and lactic acid was 1.1. #1 Bronchiectasis with presumed lower respiratory infection. She has history of MRSA pneumonia in the past. Hospital Cleaner recommended to start Zosyn and vancomycin empirically. Continue bronchodilator treatment with DuoNeb + albuterol Med Neb prn. Oxygen via NC. Pulmonary consultation initiated from ED. #2 Chronic with mild acute respiratory failure. See above. #3 Chronic atrial fibrillation. Stable. Rate controlled with CCB. She is on Eliquis for anticoagulation. Continue current medications. #4 oral thrush. Continue nystatin mouth wash. VTE prophylaxis: Continue Eliquis. GI prophylaxis: PPI po. Patient is full code. Code status discussed. Disposition: to be determined. Code Visit Inpatient E&M: 58941 Init Hosp L3
[2017-12-06] MEDS: Acetaminophen 325 MG Tablet PO (16:51)
[2017-12-06] MEDS: Calcium Carb/Vitamin D 1 TABLET Tablet PO (18:50)
[2017-12-06] MEDS: Magnesium Oxide 400 MG Tablet PO (18:50)
[2017-12-06] MEDS: Budesonide Respules 0.5 MG/2 ML AMPUL.NEB. 0.25 MG INHALATION (19:38)
[2017-12-06] MEDS: Piperacil/Tazobactam 3.375 GM/50 ML ML IV (21:07)
[2017-12-06] MEDS: NYSTATIN 500,000 UNIT/5 ML UDC 500000 UNIT PO (21:08)
[2017-12-06] MEDS: APIXABAN 2.5 MG TABLET PO (21:08)
[2017-12-06] MEDS: Carvedilol 6.25 MG Tablet PO (21:09)
[2017-12-06] MEDS: dilTIAZem CD 120 MG Capsule PO (21:09)
[2017-12-06] MEDS: traZODone 50 MG Tablet PO (21:10)
[2017-12-06] MEDS: Benzonatate 100 MG Capsule PO (23:30)
[2017-12-06] MEDS: guaiFENesin 1,200 MG Tablet 1200 MG PO (23:30)
[2017-12-07] VITALS (15 sets, daily range): BP systolic 100–116; BP diastolic 57–69; PULSE 78–117; RESP 16–20; TEMP 36.8–37.7; O2SAT 95–98
[2017-12-07] MEDS: LORazepam 0.5 MG Tablet PO (00:54)
[2017-12-07] MEDS: Albuterol 2.5 MG/3 ML VIAL.NEB. INHALATION (01:10)
[2017-12-07] MEDS: Levothyroxine 88 MCG Tablet PO (06:26)
[2017-12-07] MEDS: NYSTATIN 500,000 UNIT/5 ML UDC 500000 UNIT PO ×3 (06:26→21:00)
[2017-12-07] MEDS: Piperacil/Tazobactam 3.375 GM/50 ML ML IV (06:26)
[2017-12-07 06:29] LABS: Absolute Lymphocyte Count 0.55 X10^3/ul (0.83-4.51); Absolute Neutrophil Count 6.4 X10^3/uL (2.0-7.7); Anion Gap 6 (5-15); BUN 10 mg/dL (7-18); BUN/Creat Ratio 22.9 RATIO (10-20); Basophil# 0.02 X10^3/uL; Basophil% 0.3 % (0-1); Calcium,Total 7.3 mg/dL (8.5-10.1); Chloride 98 mmol/L (98-107); Creatinine, Serum 0.44 mg/dL (0.55-1.02); EST Glomerular Filtration Rate 150 mL/min (>60); Eosinophil# 0.03 X10^3/uL; Eosinophils% 0.4 % (0-5); Est Glom Filt Rate - Afr Amer 182 mL/min (>60); Estimated Creatinine Clearance 35.91 ml/min; Glucose 87 mg/dL (74-106); Hematocrit 37.7 % (37-47); Hemoglobin 11.4 g/dl (12.0-15.0); Lymphocyte # 0.55 X10^3/ul (4.0); Lymphocyte % 7.5 % (19-41); Mean Corp Hgb Conc 30.2 g/gl (32-36); Mean Corpuscular Hgb 25.3 pg (27.0-32.0); Mean Corpuscular Volume 83.6 fL (81-99); Mean Platelet Vol. 10.6 fl (6.2-12.0); Monocyte# 0.31 X10^3/uL; Monocyte% 4.2 % (0-10); Neutrophil % 87.5 % (47-70); Platelet Count 129 K/mm3 (150-450); Potassium 4.6 mmol/L (3.5-5.1); RBC Distribution Width SD 48.5 fl (35.1-43.9); Red Blood Count 4.51 M/mm3 (4.2-5.4); Sodium Level 134 mmol/L (136-145); White Blood Count 7.3 K/mm3 (4.4-11.0)
[2017-12-07] MEDS: Benzonatate 100 MG Capsule PO (06:30)
[2017-12-07 06:31] LABS: Differential Indicated SCAN CRITERIA MET; POSITIVE COUNT NO; POSITIVE DIFFERENTIAL YES; POSITIVE MORPHOLOGY NO
[2017-12-07] MEDS: Ipratropium/Albuterol Sulfate 3 ML AMPUL.NEB INHALATION ×4 (06:55→19:22)
[2017-12-07] MEDS: Budesonide Respules 0.5 MG/2 ML AMPUL.NEB. 0.25 MG INHALATION (06:55)
[2017-12-07] MEDS: Sertraline 50 MG Tablet PO (07:47)
[2017-12-07] MEDS: Magnesium Oxide 400 MG Tablet PO ×2 (07:47→17:29)
[2017-12-07] MEDS: Multivitamins,Ther W-Minerals Tablet 1 TABLET PO (07:48)
[2017-12-07] MEDS: Ferrous Gluconate 325 MG Tablet PO ×2 (07:48→17:30)
[2017-12-07] MEDS: Pantoprazole Sodium 20 MG Tablet PO (07:48)
[2017-12-07] MEDS: Calcium Carb/Vitamin D 1 TABLET Tablet PO ×2 (07:48→17:29)
--- NOTE | 2017-12-07 08:05 | PCM.PROGNOTE ---
Subjective: She feels better this morning. She has mostly dry cough with occasional sputum. No chest pain. T-max 99.8 overnight. - Physical Exam General: Alert, Oriented x3, Cooperative, - - cachectic. HEENT: Atraumatic, PERRLA, Normocephalic Oral: Moist Mucosa Neck: Supple, No JVD, Negative Carotid Bruits Lungs: Normal air movement, No wheeze, - - coarse rhonchi at right mid lung filed. Cardiovascular: Normal S1, Normal S2, No murmurs, - - Irregularly iregular rate and rhythm. Abdomen: Bowel Sounds Present, Soft, Non Tender, Non-Distended, No Hepato-splenomegaly Extremities: No clubbing, No cyanosis, No edema Skin: No rashes, No breakdown Musculoskeletal: No Tenderness to Palpation of Joints or Extremities, Cachexia, Muscle Wasting Lymphatic: No Cervical, Supraclavicular, or Inguinal Adenopathy Neurological: Cranial nerves II-XII grossly intact, Neuro grossly intact Psych/Mental Status: Normal Affect Vital Signs Temp Pulse Resp BP Pulse Ox 98.9 F 93 16 113/69 95 12/07/17 07:34 12/07/17 07:34 12/07/17 07:34 12/07/17 07:34 12/07/17 07:41 Oxygen Flow Rate (L/min) 2 Oxygen Delivery Method Nasal Cannula Weight: 100 lb 1.438 oz Body Mass Index (BMI) 16.1 Intake and Output for Last 24 Hours 12/05/17 12/06/17 12/07/17 23:59 23:59 23:59 Intake Total 100 / 100 392 / 392 Output Total 225 / 225 450 / 450 Balance -125 / -125 -58 / -58 Laboratory Tests Past 24 Hrs 12/07/17 12/07/17 05:15 05:15 WBC 7.3 RBC 4.51 Hgb 11.4 L Hct 37.7 MCV 83.6 MCH 25.3 L MCHC 30.2 L RDW 16.0 H RDW Differential 48.5 H Plt Count 129 L MPV 10.6 Immature Gran % (Auto) 0.100 Neut % (Auto) 87.5 H Lymph % (Auto) 7.5 L [place] % (Auto) 4.2 Eos % (Auto) 0.4 Baso % (Auto) 0.3 Absolute Neuts (auto) 6.4 Absolute Lymphs (auto) 0.55 L Total Counted Not Reportable Sodium 134 L Potassium 4.6 Chloride 98 Carbon Dioxide 30.0 Anion Gap 6 BUN 10 Creatinine 0.44 L Estim Creat Clear Calc 35.91 Est GFR (MDRD) Af Amer 182 Est GFR (MDRD) Non-Af 150 BUN/Creatinine Ratio 22.9 H Glucose 87 Calcium 7.3 L Diagnostic Data Chest X-Ray 12/06/17 14:21 IMPRESSION: No major interval change when compared to April 18, 2017. Electronically Signed: Crow Bustamante DO at 15:32 EDT Tel [phone], Service support , Medical Necessity - Tobacco Use Smoking Status: Never smoker Tobacco Use: Non-smoker Assessment/Plan Patient is a 71 years old female with history of bronchiectasis, presents to ED with worsening of shortness of breath, admitted on 12/06/17. She has been having respiratory symptoms for about one week, started on Bactrim as outpatient. However, not only the condition did not improve, but shortness of breath was getting worse. She also had low grade fever of 100.8, she was instructed to present to ED. She denied of any chest pain, but has increased congestion. She has minimal sputum productions and dyspnea with mild exertion. ED had contacted Dr. Angel, who is her cash applications representative, recommended to treat this as pneumonia. She was started on Zosyn and vancomycin, with history of previous MRSA pneumonia. WBC is 6.2, temp 99.2, and lactic acid was 1.1. Oxygen saturation 95% with 3 liter via NC. #1 Bronchiectasis with presumed lower respiratory infection. She has history of MRSA pneumonia in the past. Healthcare Advisory Services Manager recommended to start Zosyn and vancomycin empirically. Continue bronchodilator treatment with DuoNeb + albuterol Med Neb prn. Oxygen via NC. Pulmonary consultation initiated from ED. Continue current antibiotics and bronchodilator regimen. #2 Chronic with mild acute hypoxic respiratory failure. See above. #3 Chronic atrial fibrillation. Stable. Rate controlled with CCB. She is on Eliquis for anticoagulation. Continue current medications. #4 oral thrush. Continue nystatin mouth wash. VTE prophylaxis: Continue Eliquis. GI prophylaxis: PPI po. Patient is full code. Code status discussed. Disposition: Home +/- home care in 1 to 2 days. PT/OT evaluation requested. Code Visit Inpatient E&M: 41579 Subs Hosp L2
--- NOTE | 2017-12-07 08:13 | PCM.CONS.GEN ---
Problem List (1) MRSA (methicillin resistant staphylococcus aureus) pneumonia Status: Suspected Qualifiers: Laterality: unspecified laterality Lung location: unspecified part of lung Qualified Code(s): J15.212 - Pneumonia due to Methicillin resistant Staphylococcus aureus (2) Acute on chronic respiratory failure with hypoxia and hypercapnia Status: Acute (3) Bronchiectasis Status: Chronic Qualifiers: Bronchiectasis type: with acute lower respiratory infection Qualified Code(s): J47.0 - Bronchiectasis with acute lower respiratory infection (4) Oral thrush Status: Acute (5) NEPTALI (obstructive sleep apnea) Status: Chronic (6) RUL resection Status: Chronic (7) Pulmonary hypertension Status: Chronic (8) Cardiomyopathy Status: Chronic (9) Chronic atrial fibrillation Status: Chronic Reason for Consult Date of Consultation: 12/07/17 Reason for Consultation: pneumonia History of Present Illness: The patient is a 72 year old F with past medical history as below, well known to the pulmonary clinic, directed to the ED on 12/06/17 with complaints of increased shortness of breath and outpatient antibiotic failure. Patient had a routine follow-up visit in the pulmonary clinic with Lauren Parisi NP on 11/28/17, at which time Bactrim was initiated as well as nystatin for chronic oral thrush. A sputum was collected at the visit and is now showing Klebsiella pneumoniae and MRSA. The patient follows with infectious disease. She is on chronic 2 L of oxygen supplementation with ambulation, she typically saturates well on room air at rest. She was recently started on CPAP therapy for obstructive sleep apnea and has been compliant with that. She also has been compliant with her Acapella and chest physiotherapy. Patient is anticoagulated with Eliquis for chronic atrial fibrillation. Blood work showed a normal white count, sodium of 133, chloride of 92, and serum bicarb of 34. Blood cultures were obtained and are pending. Influenza screening was negative. Vital signs blood pressure 132/83, pulse 103, RR 20, temp 99.9?F, and 95% on 3 L of oxygen supplementation. Chest x-ray with no major interval change compared to April 18, 2017. There is a large loculated apical pneumothorax versus bleb, interstitial changes, and bronchiectasis. Dr. Angel was contacted from the ED and recommended treating as a pneumonia given the patient's history. She was started on vancomycin and Zosyn empirically. She is on scheduled DuoNeb aerosols with PRN albuterol, Tessalon Perles, and Pulmicort aerosols. She is also taking Mucinex, nystatin, and Flonase. Patient was admitted to the medical surgical floor for further management. Pulmonary was consulted to assist in management of suspected MRSA pneumonia. Patient denies any hemoptysis, shortness of breath at rest, dizziness, sore throat, or syncope. She does complain of intermittent fever and chills, increased chest congestion, dyspnea with minimal exertion, and overall fatigue. She is able to expectorate minimal brown sputum, which is typical for her given bronchiectasis. Patient also had some nausea and vomiting yesterday. Past Medical History Past Medical History (Chronic Problems): Chronic Problems (Last Reviewed 11/28/17 @ 12:43 by Darcie Bailon) Chronic respiratory failure with hypoxia (Chronic) NEPTALI (obstructive sleep apnea) (Chronic) RUL resection (Chronic) PND (paroxysmal nocturnal dyspnea) (Chronic) Bronchiectasis (Chronic) Atrial fibrillation (Chronic) Pulmonary hypertension (Chronic) Cardiomyopathy (Chronic) Chronic atrial fibrillation (Chronic) Hypomagnesemia (Chronic) Recheck magnesium in 48 hours Allergies sulfamethoxazole [From Bactrim] Allergy (Verified 12/06/17 14:03) Hives PT STATES NOT ALLERGIC tetracycline Allergy (Verified 12/06/17 14:03) Hives trimethoprim [From Bactrim] Allergy (Verified 12/06/17 14:03) Hives verapamil Allergy (Verified 12/06/17 14:03) Unknown itraconazole Adverse Reaction (Verified 12/06/17 14:03) chest tightness w/ upper and loewr extremity weakness warfarin [From Coumadin] Adverse Reaction (Verified 12/06/17 14:03) gi bleed SODIUM [place] Allergy (Uncoded 12/06/17 14:03) jaundice/hives JAUNDICE Home Medications: Ambulatory Orders Medication Instructions Recorded Multivitamin [Daily Multiple 1 ea PO DAILY 08/04/15 Vitamin] Cholecalciferol (Vitamin D3) 2,000 unit PO DAILY 10/30/16 [Vitamin D3] Albuterol Inhaler [Ventolin Hfa] 1 - 2 puff INHALATION Q2H PRN PRN 11/21/16 #1 inhaler Formoterol Fumarate [Perforomist] 20 mcg INHALATION BID 04/18/17 Guaifenesin [Mucinex] 1,200 mg PO BID PRN 04/18/17 Sertraline HCl [Zoloft] 50 mg PO DAILY 04/18/17 albuterol sulfate 2.5 mg/3 mL 2.5 mg INHALATION Q4H PRN ml 08/31/17 (0.083 %) solution for nebulization lorazepam 0.5 mg tablet 0.5 mg PO DAILY PRN PRN tab 08/31/17 Apixaban [Eliquis] 2.5 mg PO BID 09/08/17 Budesonide [Pulmicort] 0.25 mg IH BID 09/08/17 Calcium Carbonate/Vitamin D3 1 ea PO BID 09/08/17 [Calcium 600-Vit D3 400 Caplet] Carvedilol [Coreg (Beta El)] 6.25 mg PO BID 09/08/17 Ferrous Gluconate 325 mg PO BIDCM 09/08/17 Levothyroxine [Synthroid] 88 mcg PO DAILY@0600 09/08/17 Magnesium Oxide [Mag-Ox 400] 400 mg PO BIDCM 09/08/17 traZODone [Desyrel] 50 mg PO QHS 09/08/17 benzonatate 100 mg capsule 100 mg PO TID PRN #90 cap 10/19/17 fluticasone 50 mcg/actuation nasal 2 spray INTRANASAL DAILY #16 g 11/28/17 spray,suspension nystatin 100,000 unit/mL oral 5 ml PO TID #200 ml 11/28/17 suspension diltiazem CD 120 mg 120 mg PO BID #60 cap 11/29/17 capsule,extended release 24 hr Methadone HCl [Methadone HCl] 5 mg PO BID 12/06/17 Surgical History: cholecystectomy, hysterectomy, - Psychiatric History: Anxiety CONSTRUCTION CARPENTERS HELPER History: No pertinent CONSTRUCTION CARPENTERS HELPER history Lives: Spouse/ Significant Other Smoking Status: Never smoker Tobacco Use: Non-smoker Alcohol: None Drugs: None - *Family History Maternal History Items: No pertinent history Paternal History Items: Cancer Review of Systems Constitutional: Reports: Chills, Fever, Weakness, Fatigue. Denies: Anorexia, Night Sweats, Weight Change Eyes: Denies: Vision Change HEENT: Denies: Difficulty Swallowing, Nasal bleeding, Nasal Congestion, Post Nasal Drip, Sinus Congestion, Sinus Drainage, Sore Throat Cardiovascular: Denies: Chest Pain, Chest Tightness, Edema, Light Headedness, Orthopnea, Palpitations, Paroxysmal Noc. Dyspnea, Syncope Respiratory: Reports: Cough, Shortness of breath upon exertion, Sputum production - minimal. Denies: Hemoptysis, Shortness of breath at rest, Wheezing Gastrointestinal: Reports: Nausea, Vomiting. Denies: Abdominal Pain, Constipation, Diarrhea, Dyspepsia, Hematemesis, Hematochezia, Melena Genitourinary: Denies: Dysuria, Frequency, Hematuria, Nocturia, Retention Musculoskeletal: Denies: Back Pain, Muscle pain, Neck Pain Skin: Denies: Rash Neurological: Denies: Balance problems, Change in Speech, Confusion, Difficulty swallowing, Focal weakness, Numbness, Tingling, Tremor Psychiatric: Reports: Anxiety, Depression. Denies: Suicidal Ideations Endocrine: Denies: Change in Body Habitus, Polydipsia, Polyuria Hematologic/ Lymphatic: Reports: Easy Bruising, Easy Bleeding. Denies: Adenopathy, Anemia, Hx of blood clot Subjective: The patient was seen and examined. She feels slightly better today. Still complaining of a nonproductive cough, especially with deep inspiration. She is maintaining appropriate saturations on 2 L of oxygen supplementation. She has been ambulating to the bathroom without significant shortness of breath. Still having some intermittent nausea, fever, chills. Objective: Clinical Impression(s) from Imaging Studies Chest X-Ray 12/06/17 14:21 IMPRESSION: No major interval change when compared to April 18, 2017. Electronically Signed: Crow Bustamante DO at 15:32 EDT Tel [phone], Service support , - Physical Exam General: Alert, Oriented x3, Cooperative, No apparent distress, - - Cachectic, flat affect HEENT: Atraumatic, Normocephalic Oral: Moist Mucosa Neck: Supple, No Nodes, Trachea Midline Lungs: No wheeze, No rales, Diminished, - - Rhonchi posteriorly R>L, somewhat clears w/cough. Symmetrical expansion, no dullness to percussion. Normal respiratory effort Cardiovascular: Normal S1, Normal S2, Irregular Rate, No rub noted, No Gallop Abdomen: Bowel Sounds Present, Soft, Non Tender, Non-Distended Extremities: No clubbing, No cyanosis, No edema, Capillary Refill Less than 3 Seconds Skin: No rashes, No breakdown Musculoskeletal: Tenderness - Right shoulder, chronic Lymphatic: No Cervical, Supraclavicular, or Inguinal Adenopathy Neurological: Cranial nerves II-XII grossly intact, Neuro grossly intact, Motor Exam 5/5 strength throughout Psych/Mental Status: Flat Affect, Depressed, - - Alert and oriented Vital Signs Temp Pulse Resp BP Pulse Ox 98.9 F 93 16 113/69 95 12/07/17 07:34 12/07/17 07:34 12/07/17 07:34 12/07/17 07:34 12/07/17 07:41 Oxygen Flow Rate (L/min) 2 Oxygen Delivery Method Nasal Cannula Weight: 100 lb 1.438 oz Body Mass Index (BMI) 16.1 Intake and Output for Last 24 Hours 12/05/17 12/06/17 12/07/17 23:59 23:59 23:59 Intake Total 100 / 100 392 / 392 Output Total 225 / 225 450 / 450 Balance -125 / -125 -58 / -58 Laboratory Tests Past 24 Hrs 12/07/17 12/07/17 05:15 05:15 WBC 7.3 RBC 4.51 Hgb 11.4 L Hct 37.7 MCV 83.6 MCH 25.3 L MCHC 30.2 L RDW 16.0 H RDW Differential 48.5 H Plt Count 129 L MPV 10.6 Immature Gran % (Auto) 0.100 Neut % (Auto) 87.5 H Lymph % (Auto) 7.5 L [place] % (Auto) 4.2 Eos % (Auto) 0.4 Baso % (Auto) 0.3 Absolute Neuts (auto) 6.4 Absolute Lymphs (auto) 0.55 L Total Counted Not Reportable Sodium 134 L Potassium 4.6 Chloride 98 Carbon Dioxide 30.0 Anion Gap 6 BUN 10 Creatinine 0.44 L Estim Creat Clear Calc 35.91 Est GFR (MDRD) Af Amer 182 Est GFR (MDRD) Non-Af 150 BUN/Creatinine Ratio 22.9 H Glucose 87 Calcium 7.3 L Assessment/Plan RECOMMENDATIONS 1. Wean oxygen supplementation to keep saturations greater than 88-92% 2. Encourage aggressive pulmonary toileting, incentive spirometer and Acapella 3. Increase activity as tolerated, PT/OT 4. Continue scheduled and PRN aerosols, empiric antibiotics, mucolytics 5. Nystatin for thrush 6. Encourage p.o. intake 7. Ambulatory pulse ox prior to discharge IMPRESSIONS 1. Acute on chronic hypoxic and hypercarbic respiratory failure Likely secondary to #2. Baseline oxygen requirement of 2 L with exertion. Has required anywhere from 2-4 L continuously since hospitalized. More symptomatic with shortness of breath and sputum production. Continue antibiotics, mucolytics, chest physiotherapy/Acapella. Wean supplemental oxygen to keep saturations greater than 89%. Continue aerosols as ordered. Patient will need a walking oximetry prior to discharge. 2. Suspected MRSA pneumonia/chronic bronchiectasis Sputum culture obtained on 11/28/17, positive for Klebsiella pneumoniae and MRSA. Likely colonization, however patient more symptomatic with increasing SOB, fevers/chills, fatigue. Recent failure of outpatient Bactrim. Patient does follow with infectious disease. She is currently on empiric antibiotics with cefazolin and vancomycin. Continue IV for today, likely ok to change to oral cephalosporin tomorrow. Chest x-ray is stable compared to previous. Encourage Acapella and chest physiotherapy to assist with mobilizing secretions given patient's history of bronchiectasis. Continue nystatin for thrush. 3. Obstructive sleep apnea Compliant with recent initiation of PAP therapy. May utilize home unit. If unable to obtain her home unit, will initiate BiPAP at night and with naps. 4. Lung resection/thrush/chronic A. fib RVR on anticoagulation/pulmonary hypertension/cardiomyopathy/COPD/thyroidectomy Complicates care, management, recovery, and prognosis. Continue baseline medications as indicated. Patient with tachycardia initially, this has improved. Thank you for the opportunity to participate in this patient's care, please do not hesitate contact us with any further questions or concerns. This note was generated with [employer] dictation software. It may contain incorrect words, spelling, and punctuation that were not noted in checking the note before signing.
--- NOTE | 2017-12-07 08:15 | PN_ITS ---
Subjective: She feels better this morning. She has mostly dry cough with occasional sputum. No chest pain. T-max 99.8 overnight. - Physical Exam General: Alert, Oriented x3, Cooperative, - - cachectic. HEENT: Atraumatic, PERRLA, Normocephalic Oral: Moist Mucosa Neck: Supple, No JVD, Negative Carotid Bruits Lungs: Normal air movement, No wheeze, - - coarse rhonchi at right mid lung filed. Cardiovascular: Normal S1, Normal S2, No murmurs, - - Irregularly iregular rate and rhythm. Abdomen: Bowel Sounds Present, Soft, Non Tender, Non-Distended, No Hepato- splenomegaly Extremities: No clubbing, No cyanosis, No edema Skin: No rashes, No breakdown Musculoskeletal: No Tenderness to Palpation of Joints or Extremities, Cachexia, Muscle Wasting Lymphatic: No Cervical, Supraclavicular, or Inguinal Adenopathy Neurological: Cranial nerves II-XII grossly intact, Neuro grossly intact Psych/Mental Status: Normal Affect Vital Signs Temp Pulse Resp BP Pulse Ox 98.9 F 93 16 113/69 95 12/07/17 07:34 12/07/17 07:34 12/07/17 07:34 12/07/17 07:34 12/07/17 07:41 Oxygen Flow Rate (L/min) 2 Oxygen Delivery Method Nasal Cannula Weight: 100 lb 1.438 oz Body Mass Index (BMI) 16.1 Intake and Output for Last 24 Hours 12/05/17 12/06/17 12/07/17 23:59 23:59 23:59 Intake Total 100 / 100 392 / 392 Output Total 225 / 225 450 / 450 Balance -125 / -125 -58 / -58 Laboratory Tests Past 24 Hrs 12/07/17 12/07/17 05:15 05:15 WBC 7.3 RBC 4.51 Hgb 11.4 L Hct 37.7 MCV 83.6 MCH 25.3 L MCHC 30.2 L RDW 16.0 H RDW Differential 48.5 H Plt Count 129 L MPV 10.6 Immature Gran % (Auto) 0.100 Neut % (Auto) 87.5 H Lymph % (Auto) 7.5 L [place] % (Auto) 4.2 Eos % (Auto) 0.4 Baso % (Auto) 0.3 Absolute Neuts (auto) 6.4 Absolute Lymphs (auto) 0.55 L Total Counted Not Reportable Sodium 134 L Potassium 4.6 Chloride 98 Carbon Dioxide 30.0 Anion Gap 6 BUN 10 Creatinine 0.44 L Estim Creat Clear Calc 35.91 Est GFR (MDRD) Af Amer 182 Est GFR (MDRD) Non-Af 150 BUN/Creatinine Ratio 22.9 H Glucose 87 Calcium 7.3 L Diagnostic Data Chest X-Ray 12/06/17 14:21 IMPRESSION: No major interval change when compared to April 18, 2017. Electronically Signed: Crow Bustamante DO at 15:32 EDT Tel [phone], Service support , Medical Necessity - Tobacco Use Smoking Status: Never smoker Tobacco Use: Non-smoker Assessment/Plan Patient is a 71 years old female with history of bronchiectasis, presents to ED with worsening of shortness of breath, admitted on 12/06/17. She has been having respiratory symptoms for about one week, started on Bactrim as outpatient. However, not only the condition did not improve, but shortness of breath was getting worse. She also had low grade fever of 100.8, she was instructed to present to ED. She denied of any chest pain, but has increased congestion. She has minimal sputum productions and dyspnea with mild exertion. ED had contacted Dr. Angel, who is her inside sales associate, recommended to treat this as pneumonia. She was started on Zosyn and vancomycin, with history of previous MRSA pneumonia. WBC is 6.2, temp 99.2, and lactic acid was 1.1. Oxygen saturation 95% with 3 liter via NC. #1 Bronchiectasis with presumed lower respiratory infection. She has history of MRSA pneumonia in the past. Certified Medical Coding Specialist recommended to start Zosyn and vancomycin empirically. Continue bronchodilator treatment with DuoNeb + albuterol Med Neb prn. Oxygen via NC. Pulmonary consultation initiated from ED. Continue current antibiotics and bronchodilator regimen. #2 Chronic with mild acute hypoxic respiratory failure. See above. #3 Chronic atrial fibrillation. Stable. Rate controlled with CCB. She is on Eliquis for anticoagulation. Continue current medications. #4 oral thrush. Continue nystatin mouth wash. VTE prophylaxis: Continue Eliquis. GI prophylaxis: PPI po. Patient is full code. Code status discussed. Disposition: Home +/- home care in 1 to 2 days. PT/OT evaluation requested. Code Visit Inpatient E&M: 34379 Subs Hosp L2
--- NOTE | 2017-12-07 09:08 | PCM.RX.CS ---
Consult Pharmacy has been consulted to manage selected antiobiotic: Vancomycin Type of Consult: New start Suspected Infection: Pneumonia Prior Doses of Antibiotics Received/Current Regimen: Received 750mg IV in E.R. on 12/06/17 at 17:35 Labs: Sodium 134 mmol/L (136-145) L 12/07/17 05:15 Potassium 4.6 mmol/L (3.5-5.1) 12/07/17 05:15 Chloride 98 mmol/L (98-107) 12/07/17 05:15 Carbon Dioxide 30.0 mmol/L (21.0-32.0) 12/07/17 05:15 Anion Gap 6 (5-15) 12/07/17 05:15 BUN 10 mg/dL (7-18) 12/07/17 05:15 Creatinine 0.44 mg/dL (0.55-1.02) L 12/07/17 05:15 Est GFR (MDRD) Af Amer 182 mL/min (>60) 12/07/17 05:15 Est GFR (MDRD) Non-Af 150 mL/min (>60) 12/07/17 05:15 BUN/Creatinine Ratio 22.9 RATIO (10-20) H 12/07/17 05:15 Glucose 87 mg/dL (74-106) 12/07/17 05:15 Weight used for dosin.4 kg Estimated Creatinine Clearance: 36 ml/min Goal Trough: 15-20 mcg/mL Pharmacy Plan for Drug Dosing: Changed initial dosing of 750mg IV q24h to 1000mg IV q12h which patient had been on during a past admission and which was within goal levels. Will obtain trough before the 4th dose of 1000mg. Pharmacy Service will continue to monitor and adjust dosing as required. Follow-Up Labs: Trough Vancomycin Labs to be done on [date and time ordered]: 12/08/17 at 21:30
[2017-12-07] MEDS: Fluticasone 0.05% 1 SPRAY NASAL.SRY 2 SPRAY NASAL (09:32)
[2017-12-07] MEDS: Carvedilol 6.25 MG Tablet PO ×2 (09:32→20:59)
[2017-12-07] MEDS: dilTIAZem CD 120 MG Capsule PO ×2 (09:32→20:59)
[2017-12-07] MEDS: APIXABAN 2.5 MG TABLET PO ×2 (09:32→20:59)
[2017-12-07] MEDS: guaiFENesin 1,200 MG Tablet 1200 MG PO (09:50)
[2017-12-07] MEDS: Cefazolin 2 GM in 0.9% Normal Saline 100 ML IV ×2 (14:04→21:00)
[2017-12-07] MEDS: 0.9% NaCl Peripheral Flush Adult/Peds IV (19:02)
[2017-12-07] MEDS: Ondansetron 4 MG/2 ML Vial IV (19:02)
--- NOTE | 2017-12-07 20:30 | CPS ---
Patient vomiting during duo aerosol treatment, pulm held at this time
[2017-12-07] MEDS: traZODone 50 MG Tablet PO (20:59)
[2017-12-08] VITALS (10 sets, daily range): BP systolic 91–139; BP diastolic 54–97; PULSE 65–124; RESP 16–22; TEMP 36.6–37.1; O2SAT 91–100
[2017-12-08] MEDS: Levothyroxine 88 MCG Tablet PO (05:11)
[2017-12-08] MEDS: NYSTATIN 500,000 UNIT/5 ML UDC 500000 UNIT PO ×3 (05:11→22:32)
[2017-12-08] MEDS: Cefazolin 2 GM in 0.9% Normal Saline 100 ML IV (05:12)
[2017-12-08 06:08] LABS: Anion Gap 2 (5-15); BUN 20 mg/dL (7-18); BUN/Creat Ratio 36.8 RATIO (10-20); Calcium,Total 8.6 mg/dL (8.5-10.1); Chloride 96 mmol/L (98-107); Creatinine, Serum 0.54 mg/dL (0.55-1.02); EST Glomerular Filtration Rate 117 mL/min (>60); Est Glom Filt Rate - Afr Amer 141 mL/min (>60); Estimated Creatinine Clearance 35.37 ml/min; Glucose 94 mg/dL (74-106); Potassium 4.7 mmol/L (3.5-5.1); Sodium Level 132 mmol/L (136-145)
[2017-12-08 06:13] LABS: Absolute Neutrophil Count 3.4 X10^3/uL (2.0-7.7); Basophil# 0.03 X10^3/uL; Basophil% 0.6 % (0-1); Eosinophil# 0.05 X10^3/uL; Hemoglobin 12.4 g/dl (12.0-15.0); Mean Corp Hgb Conc 30.2 g/gl (32-36); Mean Corpuscular Hgb 25.7 pg (27.0-32.0); Mean Corpuscular Volume 85.1 fL (81-99); Mean Platelet Vol. 10.9 fl (6.2-12.0); Monocyte# 0.42 X10^3/uL; Monocyte% 8.4 % (0-10); Neutrophil # 3.38 X10^3/uL (2.7-7.7); Neutrophil % 67.8 % (47-70); Platelet Count 98 K/mm3 (150-450); RBC Distribution Width CV 16.1 % (11.6-14.6); RBC Distribution Width SD 50.3 fl (35.1-43.9); Red Blood Count 4.82 M/mm3 (4.2-5.4)
[2017-12-08 06:15] LABS: POSITIVE COUNT NO; POSITIVE DIFFERENTIAL NO; POSITIVE MORPHOLOGY NO
[2017-12-08] MEDS: Ipratropium/Albuterol Sulfate 3 ML AMPUL.NEB INHALATION ×4 (07:14→17:25)
[2017-12-08] MEDS: Budesonide Respules 0.5 MG/2 ML AMPUL.NEB. 0.25 MG INHALATION (07:14)
[2017-12-08 08:11] LABS: Immunoglobulin A 644 mg/dL (64-422); Immunoglobulin G 1361 mg/dL (700-1600)
--- NOTE | 2017-12-08 09:34 | CASEMGMT ---
RN THELMA Face to Face with patient for initial transition planning/care coordination assessment. RN CM introduced self and role at [facility]. Patient lying in bed, alert and oriented. Patient willing to participate in assessment and is able to answer all questions appropriately. Care providers, pharmacy, and demographics verified. See link attached. Patient wishes to discharge home, denies need for home health at this time. Patient states she has no further needs or concerns at this time. CM to follow for discharge planning needs that may arise. Disposition PlaN: Patient to discharge home with family support and follow-up plans in place.
[2017-12-08] MEDS: Sertraline 50 MG Tablet PO (09:53)
[2017-12-08] MEDS: Magnesium Oxide 400 MG Tablet PO ×2 (09:53→16:09)
[2017-12-08] MEDS: APIXABAN 2.5 MG TABLET PO ×2 (09:53→22:33)
[2017-12-08] MEDS: Pantoprazole Sodium 20 MG Tablet PO (09:54)
[2017-12-08] MEDS: Calcium Carb/Vitamin D 1 TABLET Tablet PO ×2 (09:54→16:09)
[2017-12-08] MEDS: Ferrous Gluconate 325 MG Tablet PO ×2 (09:54→16:09)
[2017-12-08] MEDS: Multivitamins,Ther W-Minerals Tablet 1 TABLET PO (09:54)
[2017-12-08] MEDS: Cefadroxil 500 MG CAPSULE 1000 MG PO ×2 (10:06→22:32)
[2017-12-08] MEDS: Fluticasone 0.05% 1 SPRAY NASAL.SRY 2 SPRAY NASAL (10:06)
--- NOTE | 2017-12-08 11:27 | PN_ITS ---
Subjective: The patient was seen and examined. She appears to be feeling better, states she has more energy. She remains afebrile and hemodynamically stable. Her serum bicarb is elevated. She has a persistent cough, no sputum production. She is using her Acapella consistently. She did walk to the bathroom recently and states she was not short of breath. She remains on 3 L of oxygen supplementation. Objective: Recent lab and culture data reviewed. Blood cultures are pending. Influenza screening negative. Respiratory culture is pending, Gram stain showing 1+ gram- positive cocci. Plain film chest x-ray showing chronic pulmonary findings without acute infiltrative process. Sputum culture from November 28 positive for MRSA and Klebsiella pneumoniae. - Physical Exam General: Alert, Oriented x3, Cooperative, No apparent distress, - - No conversational dyspnea HEENT: Atraumatic, Normocephalic Oral: Moist Mucosa Neck: Supple, No Nodes, Trachea Midline Lungs: - - Diminished throughout with scattered rhonchi, more on the right. No dullness to percussion, wheezing, or rales Cardiovascular: Normal S1, Normal S2, Irregular Rate Abdomen: Bowel Sounds Present, Soft, Non Tender Extremities: No clubbing, No cyanosis, No edema Skin: No rashes, No breakdown Musculoskeletal: No Tenderness to Palpation of Joints or Extremities Lymphatic: No Cervical, Supraclavicular, or Inguinal Adenopathy Neurological: Neuro grossly intact Psych/Mental Status: Alert and oriented to time, place, person, mood and affect Vital Signs Temp Pulse Resp BP Pulse Ox 98.6 F 90 18 98/58 L 93 12/08/17 10:12 12/08/17 10:12 12/08/17 10:12 12/08/17 10:12 12/08/17 10:12 Oxygen Flow Rate (L/min) 3 Oxygen Delivery Method Nasal Cannula Weight: 100 lb 1.438 oz Body Mass Index (BMI) 16.1 Intake and Output for Last 24 Hours 12/06/17 12/07/17 12/08/17 23:59 23:59 23:59 Intake Total 100 / 100 1632 / 1632 391 / 391 Output Total 225 / 225 950 / 950 Balance -125 / -125 682 / 682 391 / 391 Microbiology Past 72 Hours 12/07/17 12:14 Gram Stain - Final Sputum, Expectorated/Coughed Laboratory Tests Past 24 Hrs 12/07/17 12/08/17 12/08/17 12:55 05:24 05:24 WBC 5.0 RBC 4.82 Hgb 12.4 Hct 41.0 MCV 85.1 MCH 25.7 L MCHC 30.2 L RDW 16.1 H RDW Differential 50.3 H Plt Count 98 L MPV 10.9 Immature Gran % (Auto) 0.200 Neut % (Auto) 67.8 Lymph % (Auto) 22.0 [place] % (Auto) 8.4 Eos % (Auto) 1.0 Baso % (Auto) 0.6 Absolute Neuts (auto) 3.4 Absolute Lymphs (auto) 1.10 Total Counted Not Reportable Sodium 132 L Potassium 4.7 Chloride 96 L Carbon Dioxide 34.0 H Anion Gap 2 L BUN 20 H Creatinine 0.54 L Estim Creat Clear Calc 35.37 Est GFR (MDRD) Af Amer 141 Est GFR (MDRD) Non-Af 117 BUN/Creatinine Ratio 36.8 H Glucose 94 Calcium 8.6 IgG Pending IgA Pending IgM Pending Medical Necessity - Tobacco Use Smoking Status: Never smoker Tobacco Use: Non-smoker Assessment/Plan RECOMMENDATIONS 1. Wean oxygen supplementation to keep saturations greater than 88-92% 2. Aggressive pulmonary toileting, incentive spirometer and Acapella/chest physiotherapy with VEST 3. Increase activity as tolerated, PT/OT 4. Continue scheduled and PRN aerosols, empiric antibiotics, mucolytics. Systemic steroids likely not indicated at this time 5. Nystatin for thrush 6. Encourage p.o. intake 7. Consider infectious disease consultation 8. Likely okay to transition to oral cephalosporin today 8. Ambulatory pulse ox prior to discharge IMPRESSIONS 1. Acute on chronic hypoxic and hypercarbic respiratory failure Likely secondary to #2. Baseline oxygen requirement of 2 L with exertion. Has required anywhere from 2-4 L continuously since hospitalized. More symptomatic with shortness of breath and sputum production. Continue antibiotics, mucolytics, chest physiotherapy/Acapella. Wean supplemental oxygen to keep saturations greater than 89%. Continue aerosols as ordered. Patient will need a walking oximetry prior to discharge. 2. Suspected MRSA pneumonia/chronic bronchiectasis Sputum culture obtained on 11/28/17, positive for Klebsiella pneumoniae and MRSA. Likely colonization, however patient more symptomatic with increasing SOB , fevers/chills, fatigue. Recent failure of outpatient Bactrim. Patient does follow with infectious disease. She is currently on empiric antibiotics with cefazolin and vancomycin. Patient improved, likely ok to change to oral cephalosporin tomorrow. Chest x-ray is stable compared to previous. Encourage Acapella and chest physiotherapy with vest to assist with mobilizing secretions given patient's history of bronchiectasis. Not receiving vest therapy, will start this today. Continue nystatin for thrush. Initiation of systemic steroids not indicated at this time. 3. Obstructive sleep apnea Compliant with recent initiation of PAP therapy. May utilize home unit. If unable to obtain her home unit, will initiate BiPAP at night and with naps. 4. Lung resection/thrush/chronic A. fib RVR on anticoagulation/pulmonary hypertension/cardiomyopathy/COPD/thyroidectomy Complicates care, management, recovery, and prognosis. Continue baseline medications as indicated. Patient with tachycardia initially, this has improved. Thank you for the opportunity to participate in this patient's care, please do not hesitate contact us with any further questions or concerns. This note was generated with [employer] dictation software. It may contain incorrect words, spelling, and punctuation that were not noted in checking the note before signing.
[2017-12-08] MEDS: LORazepam 0.5 MG Tablet PO (12:31)
[2017-12-08 13:49] LABS: Immunoglobulin M 111 mg/dL (26-217)
--- NOTE | 2017-12-08 15:34 | PCM.PROGNOTE ---
Subjective: She feels well this morning. +cough, mostly dry. She denied of any chest pain. She is afebrile, WBC normal. - Physical Exam General: Alert, Oriented x3, Cooperative, - - cachectic. HEENT: Atraumatic, PERRLA, Normocephalic Oral: Moist Mucosa Neck: Supple, No JVD, Negative Carotid Bruits Lungs: Normal air movement, No wheeze, - - coarse rhonchi at right mid lung filed. Cardiovascular: Normal S1, Normal S2, No murmurs, - - Irregularly iregular rate and rhythm. Abdomen: Bowel Sounds Present, Soft, Non Tender, Non-Distended, No Hepato-splenomegaly Extremities: No clubbing, No cyanosis, No edema Skin: No rashes, No breakdown Musculoskeletal: No Tenderness to Palpation of Joints or Extremities, Cachexia, Muscle Wasting Lymphatic: No Cervical, Supraclavicular, or Inguinal Adenopathy Neurological: Cranial nerves II-XII grossly intact, Neuro grossly intact Psych/Mental Status: Normal Affect - Physical Exam Vital Signs Temp Pulse Resp BP Pulse Ox 98.8 F 92 18 98/55 L 96 12/08/17 12:15 12/08/17 13:30 12/08/17 13:30 12/08/17 12:15 12/08/17 12:15 Oxygen Flow Rate (L/min) 2 Oxygen Delivery Method Nasal Cannula Weight: 100 lb 1.438 oz Body Mass Index (BMI) 16.1 Intake and Output for Last 24 Hours 12/06/17 12/07/17 12/08/17 23:59 23:59 23:59 Intake Total 100 / 100 1632 / 1632 774 / 774 Output Total 225 / 225 950 / 950 Balance -125 / -125 682 / 682 774 / 774 Microbiology Past 72 Hours 12/07/17 12:14 Gram Stain - Final Sputum, Expectorated/Coughed Respiratory Culture - Preliminary Staphylococcus aureus Laboratory Tests Past 24 Hrs 12/07/17 12/08/17 12/08/17 12:55 05:24 05:24 WBC 5.0 RBC 4.82 Hgb 12.4 Hct 41.0 MCV 85.1 MCH 25.7 L MCHC 30.2 L RDW 16.1 H RDW Differential 50.3 H Plt Count 98 L MPV 10.9 Immature Gran % (Auto) 0.200 Neut % (Auto) 67.8 Lymph % (Auto) 22.0 [place] % (Auto) 8.4 Eos % (Auto) 1.0 Baso % (Auto) 0.6 Absolute Neuts (auto) 3.4 Absolute Lymphs (auto) 1.10 Total Counted Not Reportable Sodium 132 L Potassium 4.7 Chloride 96 L Carbon Dioxide 34.0 H Anion Gap 2 L BUN 20 H Creatinine 0.54 L Estim Creat Clear Calc 35.37 Est GFR (MDRD) Af Amer 141 Est GFR (MDRD) Non-Af 117 BUN/Creatinine Ratio 36.8 H Glucose 94 Calcium 8.6 IgG 1361 IgA 644 H IgM 111 Diagnostic Data Chest X-Ray 12/06/17 14:21 IMPRESSION: No major interval change when compared to April 18, 2017. Electronically Signed: Crow Bustamante DO at 15:32 EDT Tel [phone], Service support , Medical Necessity - Tobacco Use Smoking Status: Never smoker Tobacco Use: Non-smoker Assessment/Plan Patient is a 71 years old female with history of bronchiectasis, presents to ED with worsening of shortness of breath, admitted on 12/06/17. She has been having respiratory symptoms for about one week, started on Bactrim as outpatient. However, not only the condition did not improve, but shortness of breath was getting worse. She also had low grade fever of 100.8, she was instructed to present to ED. She denied of any chest pain, but has increased congestion. She has minimal sputum productions and dyspnea with mild exertion. ED had contacted Dr. Angel, who is her limerock tower loader, recommended to treat this as pneumonia. She was started on Zosyn and vancomycin, with history of previous MRSA pneumonia. WBC is 6.2, temp 99.2, and lactic acid was 1.1. Oxygen saturation 95% with 3 liter via NC. #1 Bronchiectasis with presumed lower respiratory infection. She has history of MRSA pneumonia in the past. Mgmt Specialist recommended to start Zosyn and vancomycin empirically. Continue bronchodilator treatment with DuoNeb + albuterol Med Neb prn. Oxygen via NC. Appreciate pulmonary consult. Agree with current plan. Continue current antibiotics and bronchodilator regimen. #2 Chronic with mild acute hypoxic respiratory failure. See above. #3 Chronic atrial fibrillation. Stable. Rate controlled with CCB. She is on Eliquis for anticoagulation. Continue current medications. #4 oral thrush. Continue nystatin mouth wash. VTE prophylaxis: Continue Eliquis. GI prophylaxis: PPI po. Patient is full code. Code status discussed. Disposition: Home +/- home care in 1 to 2 days. PT/OT evaluation requested. Code Visit Inpatient E&M: 97573 Subs Hosp L2
--- NOTE | 2017-12-08 15:40 | PN_ITS ---
Subjective: She feels well this morning. +cough, mostly dry. She denied of any chest pain. She is afebrile, WBC normal. - Physical Exam General: Alert, Oriented x3, Cooperative, - - cachectic. HEENT: Atraumatic, PERRLA, Normocephalic Oral: Moist Mucosa Neck: Supple, No JVD, Negative Carotid Bruits Lungs: Normal air movement, No wheeze, - - coarse rhonchi at right mid lung filed. Cardiovascular: Normal S1, Normal S2, No murmurs, - - Irregularly iregular rate and rhythm. Abdomen: Bowel Sounds Present, Soft, Non Tender, Non-Distended, No Hepato- splenomegaly Extremities: No clubbing, No cyanosis, No edema Skin: No rashes, No breakdown Musculoskeletal: No Tenderness to Palpation of Joints or Extremities, Cachexia, Muscle Wasting Lymphatic: No Cervical, Supraclavicular, or Inguinal Adenopathy Neurological: Cranial nerves II-XII grossly intact, Neuro grossly intact Psych/Mental Status: Normal Affect - Physical Exam Vital Signs Temp Pulse Resp BP Pulse Ox 98.8 F 92 18 98/55 L 96 12/08/17 12:15 12/08/17 13:30 12/08/17 13:30 12/08/17 12:15 12/08/17 12:15 Oxygen Flow Rate (L/min) 2 Oxygen Delivery Method Nasal Cannula Weight: 100 lb 1.438 oz Body Mass Index (BMI) 16.1 Intake and Output for Last 24 Hours 12/06/17 12/07/17 12/08/17 23:59 23:59 23:59 Intake Total 100 / 100 1632 / 1632 774 / 774 Output Total 225 / 225 950 / 950 Balance -125 / -125 682 / 682 774 / 774 Microbiology Past 72 Hours 12/07/17 12:14 Gram Stain - Final Sputum, Expectorated/Coughed Respiratory Culture - Preliminary Staphylococcus aureus Laboratory Tests Past 24 Hrs 12/07/17 12/08/17 12/08/17 12:55 05:24 05:24 WBC 5.0 RBC 4.82 Hgb 12.4 Hct 41.0 MCV 85.1 MCH 25.7 L MCHC 30.2 L RDW 16.1 H RDW Differential 50.3 H Plt Count 98 L MPV 10.9 Immature Gran % (Auto) 0.200 Neut % (Auto) 67.8 Lymph % (Auto) 22.0 [place] % (Auto) 8.4 Eos % (Auto) 1.0 Baso % (Auto) 0.6 Absolute Neuts (auto) 3.4 Absolute Lymphs (auto) 1.10 Total Counted Not Reportable Sodium 132 L Potassium 4.7 Chloride 96 L Carbon Dioxide 34.0 H Anion Gap 2 L BUN 20 H Creatinine 0.54 L Estim Creat Clear Calc 35.37 Est GFR (MDRD) Af Amer 141 Est GFR (MDRD) Non-Af 117 BUN/Creatinine Ratio 36.8 H Glucose 94 Calcium 8.6 IgG 1361 IgA 644 H IgM 111 Diagnostic Data Chest X-Ray 12/06/17 14:21 IMPRESSION: No major interval change when compared to April 18, 2017. Electronically Signed: Crow Bustamante DO at 15:32 EDT Tel [phone], Service support , Medical Necessity - Tobacco Use Smoking Status: Never smoker Tobacco Use: Non-smoker Assessment/Plan Patient is a 71 years old female with history of bronchiectasis, presents to ED with worsening of shortness of breath, admitted on 12/06/17. She has been having respiratory symptoms for about one week, started on Bactrim as outpatient. However, not only the condition did not improve, but shortness of breath was getting worse. She also had low grade fever of 100.8, she was instructed to present to ED. She denied of any chest pain, but has increased congestion. She has minimal sputum productions and dyspnea with mild exertion. ED had contacted Dr. Angel, who is her infection control nurse, recommended to treat this as pneumonia. She was started on Zosyn and vancomycin, with history of previous MRSA pneumonia. WBC is 6.2, temp 99.2, and lactic acid was 1.1. Oxygen saturation 95% with 3 liter via NC. #1 Bronchiectasis with presumed lower respiratory infection. She has history of MRSA pneumonia in the past. Case Hardener recommended to start Zosyn and vancomycin empirically. Continue bronchodilator treatment with DuoNeb + albuterol Med Neb prn. Oxygen via NC. Appreciate pulmonary consult. Agree with current plan. Continue current antibiotics and bronchodilator regimen. #2 Chronic with mild acute hypoxic respiratory failure. See above. #3 Chronic atrial fibrillation. Stable. Rate controlled with CCB. She is on Eliquis for anticoagulation. Continue current medications. #4 oral thrush. Continue nystatin mouth wash. VTE prophylaxis: Continue Eliquis. GI prophylaxis: PPI po. Patient is full code. Code status discussed. Disposition: Home +/- home care in 1 to 2 days. PT/OT evaluation requested. Code Visit Inpatient E&M: 07858 Subs Hosp L2
[2017-12-08 22:11] LABS: Vancomycin, Trough Level 13.2 ug/mL (5.0-15.0)
[2017-12-08] MEDS: Carvedilol 6.25 MG Tablet PO (22:32)
[2017-12-08] MEDS: traZODone 50 MG Tablet PO (22:32)
[2017-12-08] MEDS: dilTIAZem CD 120 MG Capsule PO (22:33)
[2017-12-08] MEDS: Ondansetron 4 MG/2 ML Vial IV (22:36)
[2017-12-09] VITALS (29 sets, daily range): BP systolic 87–155; BP diastolic 55–93; PULSE 70–118; RESP 10–20; TEMP 36.4–38.7; O2SAT 92–100
[2017-12-09] MEDS: NYSTATIN 500,000 UNIT/5 ML UDC 500000 UNIT PO ×2 (05:59→21:42)
[2017-12-09] MEDS: Levothyroxine 88 MCG Tablet PO (05:59)
--- NOTE | 2017-12-09 06:53 | PCM.PROGNOTE ---
Subjective: The patient was seen and examined at the bedside this morning. Events from the last 24 hours have been reviewed. The patient is currently afebrile, hemodynamically stable and maintaining appropriate oxygen saturations on 2 L/min via nasal cannula. Serum bicarbonate remains elevated at 34. The patient is overall net +1.9 L for the admission. I was notified by respiratory therapy this morning that the patient was in distress and lethargic. Upon arrival to the bedside, the patient was noted to be somnolent but arousable to verbal stimulation. Arterial blood gas was obtained and revealed a pH of 7.26 with a corresponding PCO2 of 92 and PO2 of 53. She was subsequently placed on BiPAP therapy. She was then transferred to the medical intensive care unit for ongoing management. She was able to confirm the presence of dyspnea, but denied the presence of sputum production. Following a trial of BiPAP therapy in the medical intensive care unit, repeat arterial blood gas revealed little to no overall change. The patient's lethargy had in fact worsened. She was no longer responding to verbal stimulation. I did have a discussion with the patient's and son regarding the potential need for intubation. They would like for her to remain a full code and would like to proceed with elective intubation. I did explain to them that there was a very real possibility that given the patient's underlying lung disease that I could not guarantee that she would be able to be weaned from mechanical ventilation. Regardless, they have opted to proceed with endotracheal intubation. The patient was placed on appropriate positioning to facilitate endotracheal intubation. Dentures were removed accordingly. The patient was medicated with 20 mg of etomidate, after which time, she was preoxygenated via bag valve mask. She maintained appropriate oxygen saturations throughout the entire procedure. A #7.5 endotracheal tube was successfully placed via video laryngoscopy at 22 cm at the lip. The patient tolerated the procedure well. OG tube to be placed. Plain film chest x-ray is pending. Objective: The patient's most recent lab work, culture data and imaging studies have all been personally reviewed. Blood cultures have shown no growth today. Repeat sputum culture is growing 2+ staph aureus. Sensitivities are pending. - Physical Exam General: - - Lethargic but will briefly arouse to verbal and tactile stimulation, only to fall quickly to sleep. HEENT: Atraumatic, PERRLA, Normocephalic Oral: No Gingival or Mucosal Lesions/ Ulcerations Neck: Supple, No Nodes, Trachea Midline Lungs: - - Poor inspiratory effort. Globally diminished air movement bilaterally. No appreciable wheezes, rales or rhonchi at this time. Cardiovascular: Normal S1, Normal S2, Irregular Rate, Tachycardic Abdomen: Bowel Sounds Present, Soft, Non Tender Extremities: No clubbing, No cyanosis, No edema Skin: No rashes, No breakdown Musculoskeletal: Cachexia, Muscle Wasting Lymphatic: No Cervical, Supraclavicular, or Inguinal Adenopathy Neurological: Cranial nerves II-XII grossly intact Vital Signs Temp Pulse Resp BP Pulse Ox 97.5 F L 118 H 18 155/93 H 99 12/09/17 03:35 12/09/17 03:35 12/09/17 03:35 12/09/17 03:35 12/09/17 03:35 Oxygen Flow Rate (L/min) 2 Oxygen Delivery Method Nasal Cannula Weight: 100 lb 1.438 oz Body Mass Index (BMI) 16.1 Intake and Output for Last 24 Hours 12/07/17 12/08/17 12/09/17 23:59 23:59 23:59 Intake Total 1632 / 1632 1374 / 1374 315 / 315 Output Total 950 / 950 400 / 400 Balance 682 / 682 974 / 974 315 / 315 Microbiology Past 72 Hours 12/07/17 12:14 Gram Stain - Final Sputum, Expectorated/Coughed Respiratory Culture - Preliminary Staphylococcus aureus Laboratory Tests Past 24 Hrs 12/07/17 12/08/17 12:55 21:26 Vancomycin Trough 13.2 IgG 1361 IgA 644 H IgM 111 Labs (Last 48 Hours) 12/07/17 12/08/17 12/08/17 12:55 05:24 05:24 WBC 5.0 RBC 4.82 Hgb 12.4 Hct 41.0 MCV 85.1 MCH 25.7 L MCHC 30.2 L RDW 16.1 H RDW Differential 50.3 H Plt Count 98 L MPV 10.9 Immature Gran % (Auto) 0.200 Neut % (Auto) 67.8 Lymph % (Auto) 22.0 [place] % (Auto) 8.4 Eos % (Auto) 1.0 Baso % (Auto) 0.6 Absolute Neuts (auto) 3.4 Absolute Lymphs (auto) 1.10 Total Counted Not Reportable Sodium 132 L Potassium 4.7 Chloride 96 L Carbon Dioxide 34.0 H Anion Gap 2 L BUN 20 H Creatinine 0.54 L Estim Creat Clear Calc 35.37 Est GFR (MDRD) Af Amer 141 Est GFR (MDRD) Non-Af 117 BUN/Creatinine Ratio 36.8 H Glucose 94 Calcium 8.6 Vancomycin Trough IgG 1361 IgA 644 H IgM 111 12/08/17 21:26 WBC RBC Hgb Hct MCV MCH MCHC RDW RDW Differential Plt Count MPV Immature Gran % (Auto) Neut % (Auto) Lymph % (Auto) [place] % (Auto) Eos % (Auto) Baso % (Auto) Absolute Neuts (auto) Absolute Lymphs (auto) Total Counted Sodium Potassium Chloride Carbon Dioxide Anion Gap BUN Creatinine Estim Creat Clear Calc Est GFR (MDRD) Af Amer Est GFR (MDRD) Non-Af BUN/Creatinine Ratio Glucose Calcium Vancomycin Trough 13.2 IgG IgA IgM Microbiology 12/06/17 15:02 Blood Culture (Wb) #2 - Anticubital Left Blood Culture - Preliminary No growth in 48 hours. 12/06/17 14:27 Blood Culture (Wb) - Venous Blood Culture - Preliminary No growth in 48 hours. 12/07/17 12:14 Sputum, Expectorated/Coughed Gram Stain - Final 12/07/17 12:14 Sputum, Expectorated/Coughed Respiratory Culture - Preliminary Staphylococcus aureus Clinical Impression(s) from Imaging Studies Chest X-Ray 12/06/17 14:21 IMPRESSION: No major interval change when compared to April 18, 2017. Electronically Signed: Crow Bustamante DO at 15:32 EDT Tel [phone], Service support , Medical Necessity - Tobacco Use Smoking Status: Never smoker Tobacco Use: Non-smoker Assessment/Plan RECOMMENDATIONS: 1. Proceed with endotracheal intubation, given lack of response to noninvasive positive pressure ventilation. 2. Obtain confirmatory plain film chest x-ray 3. Obtain repeat arterial blood gas in 1 hour. 4. The patient's home methadone and benzodiazepines have been discontinued. Fentanyl will be utilized for sedation. 5. Continue scheduled aerosol treatments. 6. Discontinue budesonide and start IV Solu-Medrol 40 mg every 6 hours. 7. Continue Eliquis. 8. Transition antibiotics to IV formulation 9. Appropriate ICU prophylaxis with PPI IMPRESSIONS: 1. Acute on chronic hypoxemic and hypercarbic respiratory failure secondary to COPD/bronchiectasis with exacerbation The patient has an underlying severe mixed ventilatory defect along with bronchiectasis and recent recurrent exacerbations. The patient's most recent sputum culture is growing MRSA. She is on appropriate antibiotics at this time. Her depressed mentation was likely the consequence of a component of baseline CO2 retention coupled with polypharmacy in the setting of multiple sedating medications. The patient failed attempts at noninvasive positive pressure ventilation. Therefore, following a discussion with the patient's family, she was electively intubated. We will plan to obtain confirmatory chest x-ray and repeat arterial blood gas in 1 hour. Continue aggressive bronchopulmonary hygiene. 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 Anticipate improvement with ventilatory support. Would plan to hold all of the patient's sedating medications at this time. 3. History of obstructive sleep apnea The patient may eventually need to be transition from her current CPAP therapy over to BiPAP in order to provide some form of baseline ventilatory support. This can be discussed further once the patient is successfully extubated. 4. History of lung resection/chronic atrial fibrillation/pulmonary hypertension/cardiomyopathy Complicates care, management, recovery and prognosis. Likely okay to continue baseline home medications. TIME: 60 minutes of critical care time, independent of procedures, was spent addressing the patient's acute on chronic respiratory failure, COPD/bronchiectasis with exacerbation, hypercarbic encephalopathy, review of all data and collaboration with the care team. ([id number]) Code Visit 9xxxx: [id number] Critical care first hour
--- NOTE | 2017-12-09 06:57 | PHA.PHARE_ITS ---
Consult Pharmacy has been consulted to manage selected antiobiotic: Vancomycin Type of Consult: Follow-up Suspected Infection: Pneumonia Prior Doses of Antibiotics Received/Current Regimen: VANCOMYCIN 1000MG Q12HR 12/07 @0943 12/07 @3 12/08 @0955 Labs: Sodium 132 mmol/L (136-145) L 12/08/17 05:24 Potassium 4.7 mmol/L (3.5-5.1) 12/08/17 05:24 Chloride 96 mmol/L (98-107) L 12/08/17 05:24 Carbon Dioxide 34.0 mmol/L (21.0-32.0) H 12/08/17 05:24 Anion Gap 2 (5-15) L 12/08/17 05:24 BUN 20 mg/dL (7-18) H 12/08/17 05:24 Creatinine 0.54 mg/dL (0.55-1.02) L 12/08/17 05:24 Est GFR (MDRD) Af Amer 141 mL/min (>60) 12/08/17 05:24 Est GFR (MDRD) Non-Af 117 mL/min (>60) 12/08/17 05:24 BUN/Creatinine Ratio 36.8 RATIO (10-20) H 12/08/17 05:24 Glucose 94 mg/dL (74-106) 12/08/17 05:24 Vancomycin Trough 13.2 ug/mL (5.0-15.0) 12/08/17 21:26 Microbiology: Microbiology 12/07/17 12:14 Sputum, Expectorated/Coughed Gram Stain - Final 12/07/17 12:14 Sputum, Expectorated/Coughed Respiratory Culture - Preliminary Staphylococcus aureus Weight used for dosin.4 kg Estimated Creatinine Clearance: 35ML/MIN Goal Trough: 15-20 mcg/mL Pharmacy Plan for Drug Dosing: The patient had a trough drawn 12/08 @ 2125, which resulted in a level of 13.2 ( 11.5hr level). Although the patient's goal trough is 15-20, per provider's progress note, the patient has improved, is afebrile, and WBC is normal. Given that the patient has clinical improvement, will continue the current dosing scheme of 1g @12hrs. Will not schedule a repeat trough at this time. Should the patient have a significant change in renal function, can redraw another lab and assess at that time. PLAN/RECOMMENDATION 1. Continue vancomycin 1g Q12hrs 2. No trough scheduled 3. Pharmacy will continue to monitor renal function, culture data, and troughs. Will make changes as appropriate
--- NOTE | 2017-12-09 06:57 | PN_ITS ---
Subjective: The patient was seen and examined at the bedside this morning. Events from the last 24 hours have been reviewed. The patient is currently afebrile, hemodynamically stable and maintaining appropriate oxygen saturations on 2 L/ min via nasal cannula. Serum bicarbonate remains elevated at 34. The patient is overall net +1.9 L for the admission. I was notified by respiratory therapy this morning that the patient was in distress and lethargic. Upon arrival to the bedside, the patient was noted to be somnolent but arousable to verbal stimulation. Arterial blood gas was obtained and revealed a pH of 7.26 with a corresponding PCO2 of 92 and PO2 of 53. She was subsequently placed on BiPAP therapy. She was then transferred to the medical intensive care unit for ongoing management. She was able to confirm the presence of dyspnea, but denied the presence of sputum production. Following a trial of BiPAP therapy in the medical intensive care unit, repeat arterial blood gas revealed little to no overall change. The patient's lethargy had in fact worsened. She was no longer responding to verbal stimulation. I did have a discussion with the patient's and son regarding the potential need for intubation. They would like for her to remain a full code and would like to proceed with elective intubation. I did explain to them that there was a very real possibility that given the patient's underlying lung disease that I could not guarantee that she would be able to be weaned from mechanical ventilation. Regardless, they have opted to proceed with endotracheal intubation. The patient was placed on appropriate positioning to facilitate endotracheal intubation. Dentures were removed accordingly. The patient was medicated with 20 mg of etomidate, after which time, she was preoxygenated via bag valve mask. She maintained appropriate oxygen saturations throughout the entire procedure. A # 7.5 endotracheal tube was successfully placed via video laryngoscopy at 22 cm at the lip. The patient tolerated the procedure well. OG tube to be placed. Plain film chest x-ray is pending. Objective: The patient's most recent lab work, culture data and imaging studies have all been personally reviewed. Blood cultures have shown no growth today. Repeat sputum culture is growing 2+ staph aureus. Sensitivities are pending. - Physical Exam General: - - Lethargic but will briefly arouse to verbal and tactile stimulation , only to fall quickly to sleep. HEENT: Atraumatic, PERRLA, Normocephalic Oral: No Gingival or Mucosal Lesions/ Ulcerations Neck: Supple, No Nodes, Trachea Midline Lungs: - - Poor inspiratory effort. Globally diminished air movement bilaterally. No appreciable wheezes, rales or rhonchi at this time. Cardiovascular: Normal S1, Normal S2, Irregular Rate, Tachycardic Abdomen: Bowel Sounds Present, Soft, Non Tender Extremities: No clubbing, No cyanosis, No edema Skin: No rashes, No breakdown Musculoskeletal: Cachexia, Muscle Wasting Lymphatic: No Cervical, Supraclavicular, or Inguinal Adenopathy Neurological: Cranial nerves II-XII grossly intact Vital Signs Temp Pulse Resp BP Pulse Ox 97.5 F L 118 H 18 155/93 H 99 12/09/17 03:35 12/09/17 03:35 12/09/17 03:35 12/09/17 03:35 12/09/17 03:35 Oxygen Flow Rate (L/min) 2 Oxygen Delivery Method Nasal Cannula Weight: 100 lb 1.438 oz Body Mass Index (BMI) 16.1 Intake and Output for Last 24 Hours 12/07/17 12/08/17 12/09/17 23:59 23:59 23:59 Intake Total 1632 / 1632 1374 / 1374 315 / 315 Output Total 950 / 950 400 / 400 Balance 682 / 682 974 / 974 315 / 315 Microbiology Past 72 Hours 12/07/17 12:14 Gram Stain - Final Sputum, Expectorated/Coughed Respiratory Culture - Preliminary Staphylococcus aureus Laboratory Tests Past 24 Hrs 12/07/17 12/08/17 12:55 21:26 Vancomycin Trough 13.2 IgG 1361 IgA 644 H IgM 111 Labs (Last 48 Hours) 12/07/17 12/08/17 12/08/17 12:55 05:24 05:24 WBC 5.0 RBC 4.82 Hgb 12.4 Hct 41.0 MCV 85.1 MCH 25.7 L MCHC 30.2 L RDW 16.1 H RDW Differential 50.3 H Plt Count 98 L MPV 10.9 Immature Gran % (Auto) 0.200 Neut % (Auto) 67.8 Lymph % (Auto) 22.0 [place] % (Auto) 8.4 Eos % (Auto) 1.0 Baso % (Auto) 0.6 Absolute Neuts (auto) 3.4 Absolute Lymphs (auto) 1.10 Total Counted Not Reportable Sodium 132 L Potassium 4.7 Chloride 96 L Carbon Dioxide 34.0 H Anion Gap 2 L BUN 20 H Creatinine 0.54 L Estim Creat Clear Calc 35.37 Est GFR (MDRD) Af Amer 141 Est GFR (MDRD) Non-Af 117 BUN/Creatinine Ratio 36.8 H Glucose 94 Calcium 8.6 Vancomycin Trough IgG 1361 IgA 644 H IgM 111 12/08/17 21:26 WBC RBC Hgb Hct MCV MCH MCHC RDW RDW Differential Plt Count MPV Immature Gran % (Auto) Neut % (Auto) Lymph % (Auto) [place] % (Auto) Eos % (Auto) Baso % (Auto) Absolute Neuts (auto) Absolute Lymphs (auto) Total Counted Sodium Potassium Chloride Carbon Dioxide Anion Gap BUN Creatinine Estim Creat Clear Calc Est GFR (MDRD) Af Amer Est GFR (MDRD) Non-Af BUN/Creatinine Ratio Glucose Calcium Vancomycin Trough 13.2 IgG IgA IgM Microbiology 12/06/17 15:02 Blood Culture (Wb) #2 - Anticubital Left Blood Culture - Preliminary No growth in 48 hours. 12/06/17 14:27 Blood Culture (Wb) - Venous Blood Culture - Preliminary No growth in 48 hours. 12/07/17 12:14 Sputum, Expectorated/Coughed Gram Stain - Final 12/07/17 12:14 Sputum, Expectorated/Coughed Respiratory Culture - Preliminary Staphylococcus aureus Clinical Impression(s) from Imaging Studies Chest X-Ray 12/06/17 14:21 IMPRESSION: No major interval change when compared to April 18, 2017. Electronically Signed: Crow Bustamante DO at 15:32 EDT Tel [phone], Service support , Medical Necessity - Tobacco Use Smoking Status: Never smoker Tobacco Use: Non-smoker Assessment/Plan RECOMMENDATIONS: 1. Proceed with endotracheal intubation, given lack of response to noninvasive positive pressure ventilation. 2. Obtain confirmatory plain film chest x-ray 3. Obtain repeat arterial blood gas in 1 hour. 4. The patient's home methadone and benzodiazepines have been discontinued. Fentanyl will be utilized for sedation. 5. Continue scheduled aerosol treatments. 6. Discontinue budesonide and start IV Solu-Medrol 40 mg every 6 hours. 7. Continue Eliquis. 8. Transition antibiotics to IV formulation 9. Appropriate ICU prophylaxis with PPI IMPRESSIONS: 1. Acute on chronic hypoxemic and hypercarbic respiratory failure secondary to COPD/bronchiectasis with exacerbation The patient has an underlying severe mixed ventilatory defect along with bronchiectasis and recent recurrent exacerbations. The patient's most recent sputum culture is growing MRSA. She is on appropriate antibiotics at this time. Her depressed mentation was likely the consequence of a component of baseline CO2 retention coupled with polypharmacy in the setting of multiple sedating medications. The patient failed attempts at noninvasive positive pressure ventilation. Therefore, following a discussion with the patient's family, she was electively intubated. We will plan to obtain confirmatory chest x-ray and repeat arterial blood gas in 1 hour. Continue aggressive bronchopulmonary hygiene. 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 Anticipate improvement with ventilatory support. Would plan to hold all of the patient's sedating medications at this time. 3. History of obstructive sleep apnea The patient may eventually need to be transition from her current CPAP therapy over to BiPAP in order to provide some form of baseline ventilatory support. This can be discussed further once the patient is successfully extubated. 4. History of lung resection/chronic atrial fibrillation/pulmonary hypertension /cardiomyopathy Complicates care, management, recovery and prognosis. Likely okay to continue baseline home medications. TIME: 60 minutes of critical care time, independent of procedures, was spent addressing the patient's acute on chronic respiratory failure, COPD/ bronchiectasis with exacerbation, hypercarbic encephalopathy, review of all data and collaboration with the care team. ([id number]) Code Visit 9xxxx: [id number] Critical care first hour
[2017-12-09 07:45] LABS: Absolute Lymphocyte Count 0.97 X10^3/ul (0.83-4.51); Absolute Neutrophil Count 5.2 X10^3/uL (2.0-7.7); Basophil# 0.01 X10^3/uL; Basophil% 0.1 % (0-1); Eosinophil# 0.01 X10^3/uL; Eosinophils% 0.1 % (0-5); Hematocrit 41.7 % (37-47); Lymphocyte # 0.97 X10^3/ul (4.0); Lymphocyte % 14.5 % (19-41); Mean Corp Hgb Conc 28.8 g/gl (32-36); Mean Corpuscular Hgb 25.4 pg (27.0-32.0); Mean Corpuscular Volume 88.3 fL (81-99); Mean Platelet Vol. 10.9 fl (6.2-12.0); Monocyte# 0.37 X10^3/uL; Monocyte% 5.5 % (0-10); Neutrophil % 78.2 % (47-70); Platelet Count 159 K/mm3 (150-450); RBC Distribution Width SD 51.9 fl (35.1-43.9); Red Blood Count 4.72 M/mm3 (4.2-5.4); White Blood Count 6.7 K/mm3 (4.4-11.0)
[2017-12-09 07:47] LABS: POSITIVE COUNT NO; POSITIVE DIFFERENTIAL NO; POSITIVE MORPHOLOGY NO
[2017-12-09] MEDS: Ipratropium/Albuterol Sulfate 3 ML AMPUL.NEB INHALATION ×3 (07:53→18:48)
--- NOTE | 2017-12-09 07:56 | CPS ---
Pulmicort not given due to .25 dosage ordered and hospital dosage is 0.5. Pharmacy notified.
[2017-12-09 08:04] LABS: Anion Gap 2 (5-15); BUN 19 mg/dL (7-18); BUN/Creat Ratio 49.7 RATIO (10-20); Calcium,Total 8.4 mg/dL (8.5-10.1); Chloride 96 mmol/L (98-107); Creatinine, Serum 0.38 mg/dL (0.55-1.02); EST Glomerular Filtration Rate 175 mL/min (>60); Est Glom Filt Rate - Afr Amer 212 mL/min (>60); Estimated Creatinine Clearance 35.37 ml/min; Glucose 175 mg/dL (74-106); Potassium 5.5 mmol/L (3.5-5.1); Sodium Level 135 mmol/L (136-145)
--- NOTE | 2017-12-09 09:31 | NURSING ---
pt found very lethargic. able to arouse enough to get her name and she would roll her eyes and start to lean over. resps [address] hernandez notified and came to room. updated on lab results. vs stable, lung sounds with rhonchi throughout, o2 @ 2l via nc. blood suger 186. abgs drawn.
--- NOTE | 2017-12-09 09:45 | RAD_ITS ---
STUDY: X-RAY CHEST REASON FOR EXAM: Female, 72 years old. Shortness of breath. Dyspnea. 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 TECHNIQUE: Single AP upright portable chest view. COMPARISON: Chest 12/06/2017. Correlation CT chest 10/10/2017. FINDINGS: Left lung appears fairly well ventilated and shows moderate heterogeneous opacities upper lobe, appears similar to prior portable chest 12/06/2017. Mild left lung base lateral heterogeneous opacities, increased compared to portable chest 12/06/2017, may represent atelectasis. Right mid-lower lung volume decrease is again seen with increased volume loss. Right superior-lateral thorax shows a 12.6 x 6.1 cm lucency, consistent with chronic pneumothorax which appears relatively unchanged. Right suprahilar triangular density appears unchanged suggesting chronic atelectasis/scarring with tiny rounded internal air collections. Right mid lung zone shows heterogeneous opacity, appears more opacified since prior chest study. Right lung base heterogeneous opacity also appears more opacified since prior chest study and shows blunted right CP angle indicating minimal pleural fluid and atelectasis. No change surgical clips and surgical suture row appearance right superior medial hemithorax. No change suture rows right lung base in 2 areas, one superimposed upon the CP angle. Moderate enlarged heart shift to the patient's right, unchanged. Severe left coronary calcifications. No change postsurgical mediastinum and lindsey. No change visualized pulmonary arteries, aortic arch, descending thoracic aorta and visualized bones. There is no demonstrated abnormality of the visualized soft tissue structures of the upper abdomen. No subdiaphragmatic free air seen grossly. EKG wires overlie chest. Loss of the right posterior lateral sixth rib indicates prior resection, unchanged. RAD/Chest 1 View (Portable) IMPRESSION: Mild increase opacification remaining right mid/basal lung with decreased volume suggesting atelectasis but cannot exclude superimposed pneumonia. Clinical correlation recommended. Otherwise, no change extensive postsurgical right chest radiographic findings as described which appear chronic. Severe left coronary artery calcifications. Electronically Signed: Mike Ricardo, at 13:14 EDT Tel , Service support ,
--- NOTE | 2017-12-09 09:46 | NURSING ---
radiology here for cxr
[2017-12-09 09:51] LABS: Allen Test POS; Base Excess 14 mmol/L (-2 to +2); Blood Gas Specimen Type ART; O2 Delivery Device Nasal Can; PO2 53 mmHG (75-100); SITE L Radial; SO2 78 % (95-99); Time Given 940; Total Carbon Dioxide 44 mmol/L; pCO2 92.1 mmHg (35-45); pH 7.26 (7.35-7.45)
[2017-12-09 09:51] LABS: Bedside Glucose 186 mg/dL (70-110)
--- NOTE | 2017-12-09 09:53 | NURSING ---
per respitory, dr corona notified of abg results, he would like bipap placed and will be up to see pt.
--- NOTE | 2017-12-09 09:54 | PCA ---
rn in with pt
--- NOTE | 2017-12-09 10:07 | NURSING ---
report called salvador boswell in icu. pt to transfer to icu 1
--- NOTE | 2017-12-09 10:09 | NURSING ---
Called patient's (Hossein) per patient's request. Updated him on patient's current status, plan of care and patient being transferred to ICU room 1. acknowledged patient's condition and was thankful for the conversation and the update. Denies further questions at this time.
[2017-12-09 11:26] LABS: Allen Test POS; Base Excess 15 mmol/L (-2 to +2); Blood Gas Specimen Type ART; EPAP 6; FI02 40; IPAP 14; PO2 113 mmHG (75-100); RR 12; SITE L Radial; SO2 97 % (95-99); Time Given 1100; Total Carbon Dioxide 45 mmol/L; pH 7.29 (7.35-7.45)
--- NOTE | 2017-12-09 11:43 | NURSING ---
1145AM DR. NEVAREZ AT BEDSIDE. PREPARING FOR INTUBATION. 1149 BEGIN INTUBATION, hr 82, BP 96/59 R 16 SPO2 97%, BAGGING 100% ETOMIDATE 20MG IV PUSH 1150 7.5 OET 22CM RT LIP. GOOD COLOR CHANGE, BILAT BREATH SDS.
[2017-12-09] MEDS: Etomidate 20 MG/10 ML Vial IV (11:45)
--- NOTE | 2017-12-09 11:54 | RAD_ITS ---
STUDY: X-RAY CHEST REASON FOR EXAM: Female, 72 years old. Endotracheal tube placement, check position. Fungal infection causing damage greater than 10 years ago. TECHNIQUE: Single AP upright portable chest view. COMPARISON: Chest 12/09/2017 through 09/08/2017 chest radiographic studies including correlation CT chest 10/10/2017. FINDINGS: Endotracheal tube appears well positioned with the inferior tip at midclavicular level approximately 4.5 cm superior to the inferior carlota. Feeding tube noted, side port is well below the left diaphragm and the distal feeding tube is cut off inferiorly from the image. Left lung is fairly well ventilated and shows moderate heterogeneous opacities upper lobe and mild left lung base lateral heterogeneous opacities, both similar appearance to prior chest 08/31/2017 suggesting chronic scarring. Cardiomediastinum is slightly shifted to the right and right mid-lower lung volume decrease is seen. Right superior-lateral thorax shows a 12.6 x 6.1 cm lucency, consistent with chronic pneumothorax which appears relatively unchanged since chest 09/08/2017, previously 12.5 x 6.25 cm. Right suprahilar triangular density appears unchanged suggesting chronic atelectasis/scarring with tiny rounded internal air collections. Right mid lung zone shows heterogeneous opacity, appears better aerated compared to chest study 12/09/2017 and 09/08/2017. Right lung base heterogeneous opacity also appears unchanged since 12/09/2017 and shows blunted right CP angle indicating minimal pleural fluid and atelectasis. No change surgical clips and surgical suture row appearance right superior medial hemithorax. No change suture rows right lung base in 2 areas, one superimposed upon the CP angle. Moderate enlarged heart shift to the patient's right, unchanged. No change postsurgical mediastinum and lindsey. No change visualized pulmonary arteries, aortic arch, descending thoracic aorta and visualized bones. There is no demonstrated abnormality of the visualized soft tissue structures of the upper abdomen. No subdiaphragmatic free air seen grossly. EKG wires overlie chest. Loss of the right posterior lateral sixth rib indicates prior resection, unchanged. RAD/Chest 1 View (Portable) IMPRESSION: Well-positioned endotracheal tube impression. Normal position extent visualized feeding tube. No change extensive postsurgical chest radiographic findings which appear chronic. Electronically Signed: Mike Ricardo, at 13:00 EDT Tel , Service support ,
[2017-12-09 12:42] LABS: Thyroid Stim Hormone (TSH) 1.18 uIU/mL (0.358-3.74)
[2017-12-09 13:21] LABS: Allen Test POS; Base Excess 20 mmol/L (-2 to +2); Bicarbonate 42.2 mmol/L (22-26); Blood Gas Specimen Type ART; FI02 100; Mode A-C; O2 Delivery Device Vent; PEEP 5; PO2 475 mmHG (75-100); RR 16; SITE L Radial; SO2 100 % (95-99); Time Given 1310; Total Carbon Dioxide 44 mmol/L; Vt 450; pCO2 49.6 mmHg (35-45); pH 7.54 (7.35-7.45)
--- NOTE | 2017-12-09 14:13 | CASEMGMT ---
Patient transferred to ICU. Report received from Sybil Adair. CM to continue to follow for any change in discharge needs.
[2017-12-09] MEDS: APIXABAN 2.5 MG TABLET PO ×2 (14:33→21:45)
[2017-12-09] MEDS: Carvedilol 6.25 MG Tablet PO ×2 (14:33→21:45)
[2017-12-09] MEDS: Pantoprazole Sodium 20 MG Tablet PO (14:33)
[2017-12-09] MEDS: Sertraline 50 MG Tablet PO (14:34)
[2017-12-09] MEDS: Propofol 10MG/Ml 1,000 MG/100 ML Bottle 1.452 MG CONT INF (14:35)
[2017-12-09] MEDS: Cefazolin 2 GM in 0.9% Normal Saline 100 ML IV ×2 (14:37→21:37)
[2017-12-09 15:32] LABS: CPK Total, Creatine Kinase 44 U/L (26-192); Triglycerides 89 mg/dL
[2017-12-09 16:44] LABS: Anion Gap 4 (5-15); BUN 20 mg/dL (7-18); BUN/Creat Ratio 39.9 RATIO (10-20); Calcium,Total 8.4 mg/dL (8.5-10.1); Chloride 96 mmol/L (98-107); EST Glomerular Filtration Rate 128 mL/min (>60); Est Glom Filt Rate - Afr Amer 155 mL/min (>60); Estimated Creatinine Clearance 37.71 ml/min; Glucose 111 mg/dL (74-106); Potassium 4.9 mmol/L (3.5-5.1); Sodium Level 136 mmol/L (136-145)
--- NOTE | 2017-12-09 17:31 | NURSING ---
education re chronic illness deferred till acute illness resolving
[2017-12-09] MEDS: Ferrous Gluconate 325 MG Tablet PO (17:45)
[2017-12-09] MEDS: Calcium Carb/Vitamin D 1 TABLET Tablet PO (17:46)
[2017-12-09] MEDS: Magnesium Oxide 400 MG Tablet PO (17:46)
[2017-12-09] MEDS: 0.9% NaCl Peripheral Flush Adult/Peds IV (17:48)
--- NOTE | 2017-12-09 18:42 | PN_ITS ---
Subjective: Patient was found obtunded this morning. She was arousable, but appears very lethargic. ABG showed severe respiratory acidosis. BiPAP was started, transferred to ICU. - Physical Exam General: Cachectic. She was lethargic / obtunded earlier today. HEENT: Atraumatic, PERRLA, Normocephalic Oral: Moist Mucosa Neck: Supple, No JVD, Negative Carotid Bruits Lungs: Normal air movement, No wheeze, - - coarse rhonchi at right >left mid lung filed. Cardiovascular: Normal S1, Normal S2, No murmurs, - - Irregularly iregular rate and rhythm. Abdomen: Bowel Sounds Present, Soft, Non Tender, Non-Distended, No Hepato- splenomegaly Extremities: No clubbing, No cyanosis, No edema Skin: No rashes, No breakdown Musculoskeletal: No Tenderness to Palpation of Joints or Extremities, Cachexia, Muscle Wasting Lymphatic: No Cervical, Supraclavicular, or Inguinal Adenopathy Neurological: Cranial nerves II-XII grossly intact, Neuro grossly intact Psych/Mental Status: Lethargic. - Physical Exam Vital Signs Temp Pulse Resp BP Pulse Ox 100.9 F H 87 12 94/56 L 100 12/09/17 16:00 12/09/17 17:02 12/09/17 17:02 12/09/17 16:00 12/09/17 17:02 Oxygen Flow Rate (L/min) 2 Oxygen Delivery Method Mechanical Ventilator Weight: 106 lb 11.26 oz Body Mass Index (BMI) 16.1 Intake and Output for Last 24 Hours 12/07/17 12/08/17 12/09/17 23:59 23:59 23:59 Intake Total 1632 / 1632 1374 / 1374 1161 / 1161 Output Total 950 / 950 400 / 400 500 / 500 Balance 682 / 682 974 / 974 661 / 661 Microbiology Past 72 Hours 12/07/17 12:14 Gram Stain - Final Sputum, Expectorated/Coughed Respiratory Culture - Final Meth. resistant Staph. aureus Mixed Chana Laboratory Tests Past 24 Hrs 12/08/17 12/09/17 12/09/17 21:26 06:50 06:50 WBC 6.7 RBC 4.72 Hgb 12.0 Hct 41.7 MCV 88.3 MCH 25.4 L MCHC 28.8 L RDW 16.0 H RDW Differential 51.9 H Plt Count 159 MPV 10.9 Immature Gran % (Auto) 1.600 H Neut % (Auto) 78.2 H Lymph % (Auto) 14.5 L [place] % (Auto) 5.5 Eos % (Auto) 0.1 Baso % (Auto) 0.1 Absolute Neuts (auto) 5.2 Absolute Lymphs (auto) 0.97 Total Counted Not Reportable Specimen Type Sample Site pH Bicarbonate Actual POC Total CO2 Base Excess O2 Saturation O2 % ABG pCO2 ABG pO2 Kevan Test Respiration Rate O2 Delivery Device Liter Flow Minute Volume Vent Mode Tidal Volume POC PEEP POC Pressure Suppt Pressure High Pressure Low Time High Time Low EPAP IPAP Blood Gas Notified Whom Blood Gas Notified Time Sodium 135 L Potassium 5.5 H Chloride 96 L Carbon Dioxide 37.0 H Anion Gap 2 L BUN 19 H Creatinine 0.38 L Estim Creat Clear Calc 35.37 Est GFR (MDRD) Af Amer 212 Est GFR (MDRD) Non-Af 175 BUN/Creatinine Ratio 49.7 H Glucose 175 H Calcium 8.4 L Total Creatine Kinase Triglycerides TSH Vancomycin Trough 13.2 12/09/17 12/09/17 12/09/17 06:50 06:50 09:41 WBC RBC Hgb Hct MCV MCH MCHC RDW RDW Differential Plt Count MPV Immature Gran % (Auto) Neut % (Auto) Lymph % (Auto) [place] % (Auto) Eos % (Auto) Baso % (Auto) Absolute Neuts (auto) Absolute Lymphs (auto) Total Counted Specimen Type ART Sample Site L Radial pH 7.26 L Bicarbonate Actual 41.0 H POC Total CO2 44 Base Excess 14 H O2 Saturation 78 L O2 % ABG pCO2 92.1 H* ABG pO2 53 L Kevan Test POS Respiration Rate O2 Delivery Device Nasal Can Liter Flow 3.0 Minute Volume Vent Mode Tidal Volume POC PEEP POC Pressure Suppt Pressure High Pressure Low Time High Time Low EPAP IPAP Blood Gas Notified Whom [facility] Blood Gas Notified Time 940 Sodium Potassium Chloride Carbon Dioxide Anion Gap BUN Creatinine Estim Creat Clear Calc Est GFR (MDRD) Af Amer Est GFR (MDRD) Non-Af BUN/Creatinine Ratio Glucose Calcium Total Creatine Kinase 44 Triglycerides 89 TSH 1.18 Vancomycin Trough 12/09/17 12/09/17 12/09/17 11:21 13:02 13:16 WBC RBC Hgb Hct MCV MCH MCHC RDW RDW Differential Plt Count MPV Immature Gran % (Auto) Neut % (Auto) Lymph % (Auto) [place] % (Auto) Eos % (Auto) Baso % (Auto) Absolute Neuts (auto) Absolute Lymphs (auto) Total Counted Specimen Type ART Cancelled ART Sample Site L Radial Cancelled L Radial pH 7.29 L Cancelled 7.54 H Bicarbonate Actual 42.0 H Cancelled 42.2 H POC Total CO2 45 Cancelled 44 Base Excess 15 H Cancelled 20 H O2 Saturation 97 Cancelled 100 H O2 % 40 Cancelled 100 ABG pCO2 88.0 H* Cancelled 49.6 H ABG pO2 113 H Cancelled 475 H* Kevan Test POS Cancelled POS Respiration Rate 12 Cancelled 16 O2 Delivery Device Bi / C PAP Cancelled Vent Liter Flow Cancelled Minute Volume Cancelled Vent Mode Cancelled A-C Tidal Volume Cancelled 450 POC PEEP Cancelled 5 POC Pressure Suppt Cancelled Pressure High Cancelled Pressure Low Cancelled Time High Cancelled Time Low Cancelled EPAP 6 Cancelled IPAP 14 Cancelled Blood Gas Notified Whom ICU MD Cancelled Blood Gas Notified Time 1100 Cancelled 1310 Sodium Potassium Chloride Carbon Dioxide Anion Gap BUN Creatinine Estim Creat Clear Calc Est GFR (MDRD) Af Amer Est GFR (MDRD) Non-Af BUN/Creatinine Ratio Glucose Calcium Total Creatine Kinase Triglycerides TSH Vancomycin Trough 12/09/17 Unknown WBC RBC Hgb Hct MCV MCH MCHC RDW RDW Differential Plt Count MPV Immature Gran % (Auto) Neut % (Auto) Lymph % (Auto) [place] % (Auto) Eos % (Auto) Baso % (Auto) Absolute Neuts (auto) Absolute Lymphs (auto) Total Counted Specimen Type Sample Site pH Bicarbonate Actual POC Total CO2 Base Excess O2 Saturation O2 % ABG pCO2 ABG pO2 Kevan Test Respiration Rate O2 Delivery Device Liter Flow Minute Volume Vent Mode Tidal Volume POC PEEP POC Pressure Suppt Pressure High Pressure Low Time High Time Low EPAP IPAP Blood Gas Notified Whom Blood Gas Notified Time Sodium 136 Potassium 4.9 Chloride 96 L Carbon Dioxide 36.0 H Anion Gap 4 L BUN 20 H Creatinine 0.50 L Estim Creat Clear Calc 37.71 Est GFR (MDRD) Af Amer 155 Est GFR (MDRD) Non-Af 128 BUN/Creatinine Ratio 39.9 H Glucose 111 H Calcium 8.4 L Total Creatine Kinase Triglycerides TSH Vancomycin Trough POC Glucose 12/09/17 09:16 POC Glucose 186 H Diagnostic Data Chest X-Ray 12/09/17 11:54 IMPRESSION: Well-positioned endotracheal tube impression. Normal position extent visualized feeding tube. No change extensive postsurgical chest radiographic findings which appear chronic. Electronically Signed: Mike Ricardo, at 13:00 EDT Tel , Service support , Medical Necessity - Tobacco Use Smoking Status: Never smoker Tobacco Use: Non-smoker Assessment/Plan Patient is a 71 years old female with history of bronchiectasis, presents to ED with worsening of shortness of breath, admitted on 12/06/17. She has been having respiratory symptoms for about one week, started on Bactrim as outpatient. However, not only the condition did not improve, but shortness of breath was getting worse. She also had low grade fever of 100.8, she was instructed to present to ED. She denied of any chest pain, but has increased congestion. She has minimal sputum productions and dyspnea with mild exertion. ED had contacted Dr. 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 She was started on Zosyn and vancomycin, with history of previous MRSA pneumonia. WBC is 6.2, temp 99.2, and lactic acid was 1.1. Oxygen saturation 95% with 3 liter via NC. On 12/09, patient was found obtunded this morning. She was arousable, but appears very lethargic. ABG showed severe respiratory acidosis. BiPAP was started, transferred to ICU. ABG was repeated, which showed unchanged respiratory acidosis. She was subsequently intubated for ventilator support. CXR as above, did not show any new infiltrate, but recent sputum culture was positive for MRSA. #1 Bronchiectasis with presumed lower respiratory infection. She has history of MRSA pneumonia in the past. [employer] recommended to start Zosyn and vancomycin empirically. Sputum culture positive for MRSA on 12/07/17. Continue bronchodilator treatment with DuoNeb + albuterol Med Neb prn. She was intubated on 12/09. Continue ventilator support. Pulmonary is following. #2 Acute on chronic hypoxic and hypercapnic respiratory failure. See above. #3 Chronic atrial fibrillation. Stable. Rate controlled with CCB. She is on Eliquis for anticoagulation. Continue current medications. #4 oral thrush. Continue nystatin mouth wash. #5 Hypercapnic encephalopathy. She is intubated. VTE prophylaxis: Continue Eliquis. GI prophylaxis: PPI po. Patient is full code. Code status discussed. Disposition: to be determined. Code Visit Inpatient E&M: 38596 Subs Hosp L3
[2017-12-09] MEDS: Chlorhexidine 15 ML PO (21:38)
[2017-12-09] MEDS: Carvedilol 6.25 MG Tablet GT (21:59)
[2017-12-09] MEDS: APIXABAN 2.5 MG TABLET GT (21:59)
[2017-12-10] VITALS (44 sets, daily range): BP systolic 89–154; BP diastolic 59–116; PULSE 91–139; RESP 12–20; TEMP 36.7–37.7; O2SAT 95–100
[2017-12-10 04:26] LABS: Hematocrit 41.7 % (37-47); Hemoglobin 12.8 g/dl (12.0-15.0); Mean Corp Hgb Conc 30.7 g/gl (32-36); Mean Corpuscular Hgb 25.9 pg (27.0-32.0); Mean Corpuscular Volume 84.4 fL (81-99); Mean Platelet Vol. 10.6 fl (6.2-12.0); Platelet Count 164 K/mm3 (150-450); RBC Distribution Width CV 15.8 % (11.6-14.6); RBC Distribution Width SD 48.8 fl (35.1-43.9); Red Blood Count 4.94 M/mm3 (4.2-5.4); White Blood Count 7.5 K/mm3 (4.4-11.0)
[2017-12-10 04:28] LABS: Scan Indicated on CBC? Y/N NO
[2017-12-10 05:04] LABS: Anion Gap 6 (5-15); BUN 21 mg/dL (7-18); BUN/Creat Ratio 35.5 RATIO (10-20); Calcium,Total 8.6 mg/dL (8.5-10.1); Chloride 93 mmol/L (98-107); Creatinine, Serum 0.59 mg/dL (0.55-1.02); EST Glomerular Filtration Rate 106 mL/min (>60); Est Glom Filt Rate - Afr Amer 128 mL/min (>60); Estimated Creatinine Clearance 37.79 ml/min; Glucose 217 mg/dL (74-106); Potassium 5.5 mmol/L (3.5-5.1); Sodium Level 132 mmol/L (136-145)
--- NOTE | 2017-12-10 05:33 | CPS ---
Spontaneous breathing trial not performed at this time d/t tachycardia > 120.
[2017-12-10] MEDS: Propofol 10MG/Ml 1,000 MG/100 ML Bottle 1.452 MG CONT INF ×2 (05:52→19:02)
[2017-12-10] MEDS: Cefazolin 2 GM in 0.9% Normal Saline 100 ML IV ×3 (05:57→21:25)
[2017-12-10] MEDS: Levothyroxine 88 MCG Tablet GT (05:58)
[2017-12-10] MEDS: NYSTATIN 500,000 UNIT/5 ML UDC 500000 UNIT PO ×3 (05:58→21:25)
--- NOTE | 2017-12-10 06:40 | PCM.PN.INT ---
Subjective: The patient was seen and examined at the bedside this morning. Events from the last 24 hours have been reviewed. The patient currently has a low-grade fever. Her heart rates became elevated this morning upon her spontaneous awakening trial. Her Cardizem had been held yesterday due to tenuous blood pressure readings. Therefore, an order was given to administer the patient's a.m. Cardizem and beta-cirilo now. She remains hemodynamically stable, nonetheless. Her ventilator requirements are minimal. Her hypercarbic encephalopathy has resolved. She is alert and nodding appropriately to questions. She did have tenacious sputum production, which was suctioned by respiratory therapy this morning. Objective: The patient's most recent lab work, culture data and imaging studies have all been personally reviewed. Blood cultures have shown no growth to date. Sputum culture is positive for MRSA. Urine culture is pending. Prior surface echocardiogram from August 2016 revealed normal LV size and thickness with an ejection fraction of 45-50%. Right ventricular systolic pressure was estimated to be 40 mmHg. General: No apparent distress, - - Intubated, minimally sedated and mechanically ventilated. HEENT: Atraumatic, PERRLA, Normocephalic Oral: No Gingival or Mucosal Lesions/ Ulcerations, - - Endotracheal and OG tubes remain in place Neck: Supple, No JVD, Trachea Midline Lungs: - - The patient has clear anterior lung sanchez following suctioning by RT. There are no wheezes, rales or rhonchi appreciated. Cardiovascular: Normal S1, Normal S2, Irregular Rate, No rub noted, No Gallop, Tachycardic Abdomen: Bowel Sounds Present, Soft, Non Tender, Non-Distended Extremities: No clubbing, No cyanosis, - - Trace pedal edema Skin: No rashes, No breakdown Musculoskeletal: Cachexia Lymphatic: No Cervical, Supraclavicular, or Inguinal Adenopathy Neurological: - - Alert and following commands appropriately. Moves all extremities spontaneously. No focal neurological deficits. Vital Signs Temp Pulse Resp BP Pulse Ox 99.4 F H 121 H 12 130/93 H 95 12/10/17 06:00 12/10/17 06:00 12/10/17 06:00 12/10/17 06:00 12/10/17 06:00 Oxygen Flow Rate (L/min) 2 Oxygen Delivery Method Mechanical Ventilator Weight: 106 lb 14.787 oz Body Mass Index (BMI) 16.1 Intake and Output for Last 24 Hours 12/08/17 12/09/17 12/10/17 23:59 23:59 23:59 Intake Total 1374 / 1374 1508.8 / 1508.8 448.4 / 448.4 Output Total 400 / 400 700 / 700 150 / 150 Balance 974 / 974 808.8 / 808.8 298.4 / 298.4 Labs (Last 48 Hours) 12/07/17 12/08/17 12/09/17 12:55 21:26 06:50 WBC RBC Hgb Hct MCV MCH MCHC RDW RDW Differential Plt Count MPV Immature Gran % (Auto) Neut % (Auto) Lymph % (Auto) [place] % (Auto) Eos % (Auto) Baso % (Auto) Absolute Neuts (auto) Absolute Lymphs (auto) Total Counted Specimen Type Sample Site pH Bicarbonate Actual POC Total CO2 Base Excess O2 Saturation O2 % ABG pCO2 ABG pO2 Kevan Test Respiration Rate O2 Delivery Device Liter Flow Minute Volume Vent Mode Tidal Volume POC PEEP POC Pressure Suppt Pressure High Pressure Low Time High Time Low EPAP IPAP Blood Gas Notified Whom Blood Gas Notified Time Sodium 135 L Potassium 5.5 H Chloride 96 L Carbon Dioxide 37.0 H Anion Gap 2 L BUN 19 H Creatinine 0.38 L Estim Creat Clear Calc 35.37 Est GFR (MDRD) Af Amer 212 Est GFR (MDRD) Non-Af 175 BUN/Creatinine Ratio 49.7 H Glucose 175 H Calcium 8.4 L Total Creatine Kinase Triglycerides TSH Vancomycin Trough 13.2 IgG 1361 IgA 644 H IgM 111 POC Glucose 12/09/17 12/09/17 12/09/17 06:50 06:50 06:50 WBC 6.7 RBC 4.72 Hgb 12.0 Hct 41.7 MCV 88.3 MCH 25.4 L MCHC 28.8 L RDW 16.0 H RDW Differential 51.9 H Plt Count 159 MPV 10.9 Immature Gran % (Auto) 1.600 H Neut % (Auto) 78.2 H Lymph % (Auto) 14.5 L [place] % (Auto) 5.5 Eos % (Auto) 0.1 Baso % (Auto) 0.1 Absolute Neuts (auto) 5.2 Absolute Lymphs (auto) 0.97 Total Counted Not Reportable Specimen Type Sample Site pH Bicarbonate Actual POC Total CO2 Base Excess O2 Saturation O2 % ABG pCO2 ABG pO2 Kevan Test Respiration Rate O2 Delivery Device Liter Flow Minute Volume Vent Mode Tidal Volume POC PEEP POC Pressure Suppt Pressure High Pressure Low Time High Time Low EPAP IPAP Blood Gas Notified Whom Blood Gas Notified Time Sodium Potassium Chloride Carbon Dioxide Anion Gap BUN Creatinine Estim Creat Clear Calc Est GFR (MDRD) Af Amer Est GFR (MDRD) Non-Af BUN/Creatinine Ratio Glucose Calcium Total Creatine Kinase 44 Triglycerides 89 TSH 1.18 Vancomycin Trough IgG IgA IgM POC Glucose 12/09/17 12/09/17 12/09/17 09:16 09:41 11:21 WBC RBC Hgb Hct MCV MCH MCHC RDW RDW Differential Plt Count MPV Immature Gran % (Auto) Neut % (Auto) Lymph % (Auto) [place] % (Auto) Eos % (Auto) Baso % (Auto) Absolute Neuts (auto) Absolute Lymphs (auto) Total Counted Specimen Type ART ART Sample Site L Radial L Radial pH 7.26 L 7.29 L Bicarbonate Actual 41.0 H 42.0 H POC Total CO2 44 45 Base Excess 14 H 15 H O2 Saturation 78 L 97 O2 % 40 ABG pCO2 92.1 H* 88.0 H* ABG pO2 53 L 113 H Kevan Test POS POS Respiration Rate 12 O2 Delivery Device Nasal Can Bi / C PAP Liter Flow 3.0 Minute Volume Vent Mode Tidal Volume POC PEEP POC Pressure Suppt Pressure High Pressure Low Time High Time Low EPAP 6 IPAP 14 Blood Gas Notified Whom HOSP MD ICU Blood Gas Notified Time 940 1100 Sodium Potassium Chloride Carbon Dioxide Anion Gap BUN Creatinine Estim Creat Clear Calc Est GFR (MDRD) Af Amer Est GFR (MDRD) Non-Af BUN/Creatinine Ratio Glucose Calcium Total Creatine Kinase Triglycerides TSH Vancomycin Trough IgG IgA IgM POC Glucose 186 H 12/09/17 12/09/17 12/09/17 13:02 13:16 Unknown WBC RBC Hgb Hct MCV MCH MCHC RDW RDW Differential Plt Count MPV Immature Gran % (Auto) Neut % (Auto) Lymph % (Auto) [place] % (Auto) Eos % (Auto) Baso % (Auto) Absolute Neuts (auto) Absolute Lymphs (auto) Total Counted Specimen Type Cancelled ART Sample Site Cancelled L Radial pH Cancelled 7.54 H Bicarbonate Actual Cancelled 42.2 H POC Total CO2 Cancelled 44 Base Excess Cancelled 20 H O2 Saturation Cancelled 100 H O2 % Cancelled 100 ABG pCO2 Cancelled 49.6 H ABG pO2 Cancelled 475 H* Kevan Test Cancelled POS Respiration Rate Cancelled 16 O2 Delivery Device Cancelled Vent Liter Flow Cancelled Minute Volume Cancelled Vent Mode Cancelled A-C Tidal Volume Cancelled 450 POC PEEP Cancelled 5 POC Pressure Suppt Cancelled Pressure High Cancelled Pressure Low Cancelled Time High Cancelled Time Low Cancelled EPAP Cancelled IPAP Cancelled Blood Gas Notified Whom Cancelled Blood Gas Notified Time Cancelled 1310 Sodium 136 Potassium 4.9 Chloride 96 L Carbon Dioxide 36.0 H Anion Gap 4 L BUN 20 H Creatinine 0.50 L Estim Creat Clear Calc 37.71 Est GFR (MDRD) Af Amer 155 Est GFR (MDRD) Non-Af 128 BUN/Creatinine Ratio 39.9 H Glucose 111 H Calcium 8.4 L Total Creatine Kinase Triglycerides TSH Vancomycin Trough IgG IgA IgM POC Glucose 12/10/17 12/10/17 04:15 04:15 WBC 7.5 RBC 4.94 Hgb 12.8 Hct 41.7 MCV 84.4 MCH 25.9 L MCHC 30.7 L RDW 15.8 H RDW Differential 48.8 H Plt Count 164 MPV 10.6 Immature Gran % (Auto) Neut % (Auto) Lymph % (Auto) [place] % (Auto) Eos % (Auto) Baso % (Auto) Absolute Neuts (auto) Absolute Lymphs (auto) Total Counted Specimen Type Sample Site pH Bicarbonate Actual POC Total CO2 Base Excess O2 Saturation O2 % ABG pCO2 ABG pO2 Kevan Test Respiration Rate O2 Delivery Device Liter Flow Minute Volume Vent Mode Tidal Volume POC PEEP POC Pressure Suppt Pressure High Pressure Low Time High Time Low EPAP IPAP Blood Gas Notified Whom Blood Gas Notified Time Sodium 132 L Potassium 5.5 H Chloride 93 L Carbon Dioxide 33.0 H Anion Gap 6 BUN 21 H Creatinine 0.59 Estim Creat Clear Calc 37.79 Est GFR (MDRD) Af Amer 128 Est GFR (MDRD) Non-Af 106 BUN/Creatinine Ratio 35.5 H Glucose 217 H Calcium 8.6 Total Creatine Kinase Triglycerides TSH Vancomycin Trough IgG IgA IgM POC Glucose Microbiology 12/07/17 12:14 Sputum, Expectorated/Coughed Gram Stain - Final 12/07/17 12:14 Sputum, Expectorated/Coughed Respiratory Culture - Final Meth. resistant Staph. aureus Mixed Chana Clinical Impression(s) from Imaging Studies Chest X-Ray 12/06/17 14:21 IMPRESSION: No major interval change when compared to April 18, 2017. Electronically Signed: Crow Bustamante DO at 15:32 EDT Tel [phone], Service support , Chest X-Ray 12/09/17 09:45 IMPRESSION: Mild increase opacification remaining right mid/basal lung with decreased volume suggesting atelectasis but cannot exclude superimposed pneumonia. Clinical correlation recommended. Otherwise, no change extensive postsurgical right chest radiographic findings as described which appear chronic. Severe left coronary artery calcifications. Electronically Signed: Mike Ricardo, at 13:14 EDT Tel , Service support , Chest X-Ray 12/09/17 11:54 IMPRESSION: Well-positioned endotracheal tube impression. Normal position extent visualized feeding tube. No change extensive postsurgical chest radiographic findings which appear chronic. Electronically Signed: Mike Ricardo, at 13:00 EDT Tel , Service support , Medical Necessity - Tobacco Use Smoking Status: Never smoker Tobacco Use: Non-smoker Assessment/Plan RECOMMENDATIONS: 1. Administer scheduled Cardizem and beta-cirilo early this morning. 2. If the patient's heart rate becomes better controlled, she can be placed on a spontaneous breathing trial later this morning. 3. If the patient remains intubated today, would recommend starting tube feeds. 4. Start vest therapy 5. Continue scheduled aerosol treatments and IV steroids 6. Continue Eliquis. 7. Continue antibiotics 8. Appropriate ICU prophylaxis with PPI IMPRESSIONS: 1. Acute on chronic hypoxemic and hypercarbic respiratory failure secondary to COPD/bronchiectasis with exacerbation The patient has an underlying severe mixed ventilatory defect along with bronchiectasis and recent recurrent exacerbations. The patient's most recent sputum culture is growing MRSA. She is on appropriate antibiotics at this time. Her depressed mentation was likely the consequence of a component of baseline CO2 retention coupled with polypharmacy in the setting of multiple sedating medications. The patient failed attempts at noninvasive positive pressure ventilation was subsequently intubated. She is more alert and appropriately interactive this morning. Her accelerated heart rate is currently a barrier to consideration for liberation from mechanical ventilation. Once her heart rate is brought under better control, she be placed on a spontaneous breathing trial. If the patient remains intubated today, we would consider starting tube feeds. Start vest therapy. Continue scheduled aerosol treatments and steroids accordingly. 2. Hypercarbic encephalopathy Resolved this morning. Likely secondary to underlying lung disease coupled with polypharmacy. The patient utilizes methadone and benzodiazepines at her baseline. These are reportedly being managed by palliative care on an outpatient basis. Recommend slow reintroduction of the aforementioned medications upon successful extubation. In addition, we will transition the patient from nocturnal CPAP to BiPAP therapy to provide some form of ventilatory support. 3. History of obstructive sleep apnea The patient may eventually need to be transition from her current CPAP therapy over to BiPAP in order to provide some form of baseline ventilatory support. This can be discussed further once the patient is successfully extubated. 4. History of lung resection/chronic atrial fibrillation/pulmonary hypertension/cardiomyopathy Complicates care, management, recovery and prognosis. Likely okay to continue baseline home medications. TIME: 40 minutes of critical care time, independent of procedures, was spent addressing the patient's acute on chronic respiratory failure, COPD/bronchiectasis with exacerbation, hypercarbic encephalopathy, review of all data and collaboration with the care team. ([id number]) Code Visit 9xxxx: [id number] Critical care first hour
[2017-12-10] MEDS: dilTIAZem CD 120 MG Capsule PO ×2 (06:49→21:25)
[2017-12-10] MEDS: Carvedilol 6.25 MG Tablet GT ×2 (06:52→21:25)
[2017-12-10] MEDS: 0.45% Normal Saline 1,000 ML 125 ML IV ×2 (07:08→17:20)
[2017-12-10] MEDS: CHLORHEXIDINE GLUC 2% CLOTH 1 EACH TOWELETTE TOPICAL (07:09)
--- NOTE | 2017-12-10 08:45 | PN_ITS ---
Subjective: Chief complaint: Follow-up after admission for acute on chronic hypoxic and hypercapnic respiratory failure due to COPD/bronchiectasis exacerbation. Patient seen and examined. No acute events overnight. She is alert and awake, remained on mechanical ventilation. She remained in A. fib and heart rate went up when she had spontaneous awakening times this morning. Cardizem drip held yesterday because of borderline blood pressure. She remained in A. fib, heart rate has been around 120s. Maximum temperature overnight was 99.6, blood pressure is borderline, remained on mechanical ventilation. - Physical Exam General: Alert, Cooperative, - - On mechanical ventilation. HEENT: Atraumatic, PERRLA, EOMI Oral: Moist Mucosa, No Gingival or Mucosal Lesions/ Ulcerations Neck: Supple, No JVD, Negative Carotid Bruits, Trachea Midline, Thyroid Normal Size and Texture Lungs: Clear to auscultation, No rhonchi, No wheeze, No rales, Diminished Cardiovascular: Normal S1, Normal S2, No murmurs, PMI Normal, Irregular Rate, Tachycardic Abdomen: Bowel Sounds Present, Soft, Non Tender, Non-Distended, No Hepato- splenomegaly Extremities: No clubbing, No cyanosis, No edema Skin: No rashes, No breakdown Lymphatic: No Cervical, Supraclavicular, or Inguinal Adenopathy Neurological: Cranial nerves II-XII grossly intact, Neuro grossly intact Psych/Mental Status: Flat Affect Vital Signs Temp Pulse Resp BP Pulse Ox 99.5 F H 112 H 12 99/63 98 12/10/17 08:00 12/10/17 08:00 12/10/17 08:00 12/10/17 08:00 12/10/17 08:00 Oxygen Flow Rate (L/min) 2 Oxygen Delivery Method Mechanical Ventilator Weight: 106 lb 14.787 oz Body Mass Index (BMI) 16.1 Intake and Output for Last 24 Hours 12/08/17 12/09/17 12/10/17 23:59 23:59 23:59 Intake Total 1374 / 1374 1508.8 / 1508.8 448.4 / 448.4 Output Total 400 / 400 700 / 700 150 / 150 Balance 974 / 974 808.8 / 808.8 298.4 / 298.4 Microbiology Past 72 Hours 12/07/17 12:14 Gram Stain - Final Sputum, Expectorated/Coughed Respiratory Culture - Final Meth. resistant Staph. aureus Mixed Chana Laboratory Tests Past 24 Hrs 12/09/17 12/09/17 12/09/17 06:50 06:50 09:41 WBC RBC Hgb Hct MCV MCH MCHC RDW RDW Differential Plt Count MPV Specimen Type ART Sample Site L Radial pH 7.26 L Bicarbonate Actual 41.0 H POC Total CO2 44 Base Excess 14 H O2 Saturation 78 L O2 % ABG pCO2 92.1 H* ABG pO2 53 L Kevan Test POS Respiration Rate O2 Delivery Device Nasal Can Liter Flow 3.0 Minute Volume Vent Mode Tidal Volume POC PEEP POC Pressure Suppt Pressure High Pressure Low Time High Time Low EPAP IPAP Blood Gas Notified Whom HOSP Blood Gas Notified Time 940 Sodium Potassium Chloride Carbon Dioxide Anion Gap BUN Creatinine Estim Creat Clear Calc Est GFR (MDRD) Af Amer Est GFR (MDRD) Non-Af BUN/Creatinine Ratio Glucose Calcium Total Creatine Kinase 44 Triglycerides 89 TSH 1.18 12/09/17 12/09/17 12/09/17 11:21 13:02 13:16 WBC RBC Hgb Hct MCV MCH MCHC RDW RDW Differential Plt Count MPV Specimen Type ART Cancelled ART Sample Site L Radial Cancelled L Radial pH 7.29 L Cancelled 7.54 H Bicarbonate Actual 42.0 H Cancelled 42.2 H POC Total CO2 45 Cancelled 44 Base Excess 15 H Cancelled 20 H O2 Saturation 97 Cancelled 100 H O2 % 40 Cancelled 100 ABG pCO2 88.0 H* Cancelled 49.6 H ABG pO2 113 H Cancelled 475 H* Kevan Test POS Cancelled POS Respiration Rate 12 Cancelled 16 O2 Delivery Device Bi / C PAP Cancelled Vent Liter Flow Cancelled Minute Volume Cancelled Vent Mode Cancelled A-C Tidal Volume Cancelled 450 POC PEEP Cancelled 5 POC Pressure Suppt Cancelled Pressure High Cancelled Pressure Low Cancelled Time High Cancelled Time Low Cancelled EPAP 6 Cancelled IPAP 14 Cancelled Blood Gas Notified Whom ICU Cancelled Blood Gas Notified Time 1100 Cancelled 1310 Sodium Potassium Chloride Carbon Dioxide Anion Gap BUN Creatinine Estim Creat Clear Calc Est GFR (MDRD) Af Amer Est GFR (MDRD) Non-Af BUN/Creatinine Ratio Glucose Calcium Total Creatine Kinase Triglycerides TSH 12/09/17 12/10/17 12/10/17 Unknown 04:15 04:15 WBC 7.5 RBC 4.94 Hgb 12.8 Hct 41.7 MCV 84.4 MCH 25.9 L MCHC 30.7 L RDW 15.8 H RDW Differential 48.8 H Plt Count 164 MPV 10.6 Specimen Type Sample Site pH Bicarbonate Actual POC Total CO2 Base Excess O2 Saturation O2 % ABG pCO2 ABG pO2 Kevan Test Respiration Rate O2 Delivery Device Liter Flow Minute Volume Vent Mode Tidal Volume POC PEEP POC Pressure Suppt Pressure High Pressure Low Time High Time Low EPAP IPAP Blood Gas Notified Whom Blood Gas Notified Time Sodium 136 132 L Potassium 4.9 5.5 H Chloride 96 L 93 L Carbon Dioxide 36.0 H 33.0 H Anion Gap 4 L 6 BUN 20 H 21 H Creatinine 0.50 L 0.59 Estim Creat Clear Calc 37.71 37.79 Est GFR (MDRD) Af Amer 155 128 Est GFR (MDRD) Non-Af 128 106 BUN/Creatinine Ratio 39.9 H 35.5 H Glucose 111 H 217 H Calcium 8.4 L 8.6 Total Creatine Kinase Triglycerides TSH POC Glucose 12/09/17 09:16 POC Glucose 186 H Medical Necessity - Tobacco Use Smoking Status: Never smoker Tobacco Use: Non-smoker Assessment/Plan This is a 72 years old female patient admitted because of worsening shortness of breath, low-grade fever and congestion and she was found to have acute on chronic hypoxic and hypercapnic respiratory failure secondary to exacerbation of COPD/bronchiectasis and also found to have metabolic encephalopathy and A. fib with RVR. #1 acute on chronic hypoxic and hypercapnic respiratory failure: She is on mechanical ventilation. Her heart rate went up on spontaneous awakening trial. She remained in A. fib, heart rate has been 120s. Blood pressure stable. ABG from yesterday reviewed. She is on IV antibiotics, bronchodilators and IV steroids. Hospitalist Nocturnist Physician on the case. Plan to keep patient on mechanical ventilation or today, controlled her A. fib with RVR. #2 acute COPD/bronchiectasis exacerbation: Chest x-ray reviewed. She is on IV steroids, IV antibiotics and bronchodilators. Sputum culture revealed MRSA. Blood culture showed no growth in 48 hours. Nasal swab for influenza a and B were negative. Plan to continue same treatment as above. #3 A. fib with RVR: She remained in A. fib, heart rate has been fluctuating between 100-120. She was taken off Cardizem drip this morning because of borderline blood pressure. At this time, blood pressure improved. Heart rate has been around 100. She is on Eliquis for anticoagulation. She is on Coreg through the GT tube as well as Cardizem for rate control. #4 metabolic encephalopathy: Secondary to acute on chronic hypoxic and hypercarbic respiratory failure. At this time, she is alert and awake but not able to assess her orientation because she is intubated. #5 hyponatremia/hyperkalemia: Her sodium is currently low, it was normal yesterday. 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 Her potassium is 5.5, slightly elevated. No acute changes related to hyperkalemia. #6 history of Takotsubo cardiomyopathy: Most recent 2D echocardiogram was from August, and revealed ejection fraction of 40% and it was improved. At this time, no evidence of acute CHF. #7 hypothyroidism: Continue levothyroxine. #8 chronic atrial fibrillation: She is in A. fib with RVR, heart rate has been fluctuating. Plan as above, continue Coreg and Cardizem, continue Eliquis. #9 DVT prophylaxis: Continue Eliquis. This note was generated with App[employer] dictation software. It may contain incorrect words, spelling, and punctuation that were not noted in checking the note before signing. Code Visit Inpatient E&M: 30559 [facility] Hosp L3
--- NOTE | 2017-12-10 09:16 | CASEMGMT ---
Participated in interdisciplinary rounds this am. Patient remains intubated. They did not try SBT due to tachycardia. Will attempt again tomorrow. Dr. Campbell believes that patient is currently active with palliative care. Case management will continue to follow patient's progress and discharge planning needs. Opal Hernadez RN, [facility].
[2017-12-10] MEDS: 0.9% NaCl Peripheral Flush Adult/Peds IV ×2 (09:30→11:10)
[2017-12-10] MEDS: Sertraline 50 MG Tablet GT (09:31)
[2017-12-10] MEDS: APIXABAN 2.5 MG TABLET GT ×2 (09:31→21:25)
[2017-12-10] MEDS: Magnesium Oxide 400 MG Tablet GT ×2 (09:31→17:19)
[2017-12-10] MEDS: Calcium Carb/Vitamin D 1 TABLET Tablet GT ×2 (09:31→17:19)
[2017-12-10] MEDS: Ferrous Gluconate 325 MG Tablet PO ×2 (09:31→17:19)
[2017-12-10] MEDS: Famotidine 20 MG Tablet GT (09:31)
[2017-12-10] MEDS: Chlorhexidine 15 ML PO ×2 (09:33→21:25)
[2017-12-10] MEDS: Vital AF 1.2 Cal Liquid 1,000 ML 15 ML GT (10:07)
[2017-12-10 10:27] LABS: Vancomycin, Trough Level 17.2 ug/mL (5.0-15.0)
--- NOTE | 2017-12-10 11:07 | PCM.RX.CS ---
Consult Pharmacy has been consulted to manage selected antiobiotic: Vancomycin Type of Consult: Follow-up Suspected Infection: Pneumonia Prior Doses of Antibiotics Received/Current Regimen: VANCOMYCIN 1000MG Q12HRS. LAST ADMINISTERED DOSE 12/09 @2258 Labs: Sodium 132 mmol/L (136-145) L 12/10/17 04:15 Potassium 5.5 mmol/L (3.5-5.1) H 12/10/17 04:15 Chloride 93 mmol/L (98-107) L 12/10/17 04:15 Carbon Dioxide 33.0 mmol/L (21.0-32.0) H 12/10/17 04:15 Anion Gap 6 (5-15) 12/10/17 04:15 BUN 21 mg/dL (7-18) H 12/10/17 04:15 Creatinine 0.59 mg/dL (0.55-1.02) 12/10/17 04:15 Est GFR (MDRD) Af Amer 128 mL/min (>60) 12/10/17 04:15 Est GFR (MDRD) Non-Af 106 mL/min (>60) 12/10/17 04:15 BUN/Creatinine Ratio 35.5 RATIO (10-20) H 12/10/17 04:15 Glucose 217 mg/dL (74-106) H 12/10/17 04:15 Vancomycin Trough 17.2 ug/mL (5.0-15.0) H 12/10/17 09:30 Microbiology: Microbiology 12/07/17 12:14 Sputum, Expectorated/Coughed Gram Stain - Final 12/07/17 12:14 Sputum, Expectorated/Coughed Respiratory Culture - Final Meth. resistant Staph. aureus Mixed Chana Weight used for dosin.4 kg Goal Trough: 15-20 mcg/mL Pharmacy Plan for Drug Dosing: Pharmacy Service will continue to monitor and adjust dosing as required. The patient is being treated for MRSA in the sputum. A trough was drawn which resulted in a value of 17.2 (drawn 10.5hrs from last administration). This is an appropriate trough level, as we are targeting a trough of 15-20. Pharmacy recommends to continue current regimen. Will not order a new trough at this time. If the patient has a significant change in renal function, would order another trough. Pharmacy will continue to monitor daily. PLAN/RECOMMENDATIONS 1. Continue vancomycin 1000mg IV Q12hrs 2. No additional trough ordered at this time 3. Pharmacy will continue to monitor and make changes as appropriate.
[2017-12-10] MEDS: Senna Tablet 1 TABLET GT ×2 (11:18→21:25)
[2017-12-10 11:35] LABS: Bedside Glucose 205 mg/dL (70-110)
[2017-12-10] MEDS: Ipratropium/Albuterol Sulfate 3 ML AMPUL.NEB INHALATION ×3 (11:35→18:39)
[2017-12-10 18:31] LABS: Bedside Glucose 156 mg/dL (70-110)
[2017-12-11] VITALS (35 sets, daily range): BP systolic 91–159; BP diastolic 66–94; PULSE 27–140; RESP 12–29; TEMP 37–37.5; O2SAT 97–514
[2017-12-11 00:51] LABS: Bedside Glucose 171 mg/dL (70-110)
[2017-12-11] MEDS: 0.45% Normal Saline 1,000 ML 125 ML IV ×3 (03:14→22:15)
[2017-12-11 04:21] LABS: Hematocrit 39.6 % (37-47); Hemoglobin 12.6 g/dl (12.0-15.0); Mean Corp Hgb Conc 31.8 g/gl (32-36); Mean Corpuscular Hgb 25.5 pg (27.0-32.0); Mean Corpuscular Volume 80.2 fL (81-99); Mean Platelet Vol. 10.9 fl (6.2-12.0); Platelet Count 229 K/mm3 (150-450); RBC Distribution Width CV 16.1 % (11.6-14.6); RBC Distribution Width SD 47.3 fl (35.1-43.9); Red Blood Count 4.94 M/mm3 (4.2-5.4)
[2017-12-11 04:26] LABS: Scan Indicated on CBC? Y/N NO
[2017-12-11] MEDS: Levothyroxine 88 MCG Tablet GT (05:45)
[2017-12-11] MEDS: Cefazolin 2 GM in 0.9% Normal Saline 100 ML IV ×3 (05:46→21:59)
[2017-12-11 05:49] LABS: Anion Gap 4 (5-15); BUN 19 mg/dL (7-18); BUN/Creat Ratio 37.9 RATIO (10-20); Calcium,Total 8.1 mg/dL (8.5-10.1); Chloride 94 mmol/L (98-107); EST Glomerular Filtration Rate 128 mL/min (>60); Est Glom Filt Rate - Afr Amer 155 mL/min (>60); Estimated Creatinine Clearance 37.79 ml/min; Glucose 239 mg/dL (74-106); Potassium 4.9 mmol/L (3.5-5.1); Sodium Level 129 mmol/L (136-145)
[2017-12-11] MEDS: NYSTATIN 500,000 UNIT/5 ML UDC 500000 UNIT PO ×3 (05:50→22:00)
[2017-12-11 06:01] LABS: Bedside Glucose 277 mg/dL (70-110)
--- NOTE | 2017-12-11 06:38 | PCM.PN.INT ---
Subjective: The patient was seen and examined at the bedside this morning. Events from the last 24 hours have been reviewed. The patient is currently afebrile, hemodynamically stable and maintaining appropriate oxygen saturations on an FiO2 of 30%. Secretion production has decreased over the last 24-48 hours. The patient's heart rate is under better control this morning. She does report a mild degree of anxiety. However, she did pass her spontaneous breathing trial this morning. She is alert and appropriately interactive. Objective: The patient's most recent lab work, culture data and imaging studies have all been personally reviewed. Blood cultures have shown no growth to date. Sputum culture is positive for MRSA. Urine culture is pending. Prior surface echocardiogram from August 2016 revealed normal LV size and thickness with an ejection fraction of 45-50%. Right ventricular systolic pressure was estimated to be 40 mmHg. General: No apparent distress, - - Remains intubated. Currently tolerating CPAP. HEENT: Atraumatic, PERRLA, Normocephalic Oral: No Gingival or Mucosal Lesions/ Ulcerations, - - Endotracheal and OG tubes in place. Neck: Supple, No Nodes, Trachea Midline Lungs: Diminished, - - Scattered bilateral rhonchi. Cardiovascular: Normal S1, Normal S2, Irregular Rate, No rub noted, No Gallop, Tachycardic Abdomen: Bowel Sounds Present, Soft, Non Tender Extremities: No clubbing, No cyanosis, - - Trace pedal edema Skin: No rashes, No breakdown Musculoskeletal: Cachexia Lymphatic: No Cervical, Supraclavicular, or Inguinal Adenopathy Neurological: - - Moves all extremities spontaneously. Alert and following commands appropriately. Vital Signs Temp Pulse Resp BP Pulse Ox 99 F 113 H 18 151/89 H 100 12/11/17 06:00 12/11/17 06:00 12/11/17 06:00 12/11/17 06:00 12/11/17 06:00 Oxygen Flow Rate (L/min) 2 Oxygen Delivery Method CPAP Weight: 112 lb 3.445 oz Body Mass Index (BMI) 16.1 Intake and Output for Last 24 Hours 12/09/17 12/10/17 12/11/17 23:59 23:59 23:59 Intake Total 1508.8 / 1508.8 3964.4 / 3964.4 1362.2 / 1362.2 Output Total 700 / 700 725 / 725 600 / 600 Balance 808.8 / 808.8 3239.4 / 3239.4 762.2 / 762.2 Labs (Last 48 Hours) 12/09/17 12/09/17 12/09/17 06:50 06:50 06:50 WBC 6.7 RBC 4.72 Hgb 12.0 Hct 41.7 MCV 88.3 MCH 25.4 L MCHC 28.8 L RDW 16.0 H RDW Differential 51.9 H Plt Count 159 MPV 10.9 Immature Gran % (Auto) 1.600 H Neut % (Auto) 78.2 H Lymph % (Auto) 14.5 L [place] % (Auto) 5.5 Eos % (Auto) 0.1 Baso % (Auto) 0.1 Absolute Neuts (auto) 5.2 Absolute Lymphs (auto) 0.97 Total Counted Not Reportable Specimen Type Sample Site pH Bicarbonate Actual POC Total CO2 Base Excess O2 Saturation O2 % ABG pCO2 ABG pO2 Kevan Test Respiration Rate O2 Delivery Device Liter Flow Minute Volume Vent Mode Tidal Volume POC PEEP POC Pressure Suppt Pressure High Pressure Low Time High Time Low EPAP IPAP Blood Gas Notified Whom Blood Gas Notified Time Sodium 135 L Potassium 5.5 H Chloride 96 L Carbon Dioxide 37.0 H Anion Gap 2 L BUN 19 H Creatinine 0.38 L Estim Creat Clear Calc 35.37 Est GFR (MDRD) Af Amer 212 Est GFR (MDRD) Non-Af 175 BUN/Creatinine Ratio 49.7 H Glucose 175 H Calcium 8.4 L Total Creatine Kinase Triglycerides TSH 1.18 Vancomycin Trough POC Glucose 12/09/17 12/09/17 12/09/17 06:50 09:16 09:41 WBC RBC Hgb Hct MCV MCH MCHC RDW RDW Differential Plt Count MPV Immature Gran % (Auto) Neut % (Auto) Lymph % (Auto) [place] % (Auto) Eos % (Auto) Baso % (Auto) Absolute Neuts (auto) Absolute Lymphs (auto) Total Counted Specimen Type ART Sample Site L Radial pH 7.26 L Bicarbonate Actual 41.0 H POC Total CO2 44 Base Excess 14 H O2 Saturation 78 L O2 % ABG pCO2 92.1 H* ABG pO2 53 L Kevan Test POS Respiration Rate O2 Delivery Device Nasal Can Liter Flow 3.0 Minute Volume Vent Mode Tidal Volume POC PEEP POC Pressure Suppt Pressure High Pressure Low Time High Time Low EPAP IPAP Blood Gas Notified Whom HOSP Blood Gas Notified Time 940 Sodium Potassium Chloride Carbon Dioxide Anion Gap BUN Creatinine Estim Creat Clear Calc Est GFR (MDRD) Af Amer Est GFR (MDRD) Non-Af BUN/Creatinine Ratio Glucose Calcium Total Creatine Kinase 44 Triglycerides 89 TSH Vancomycin Trough POC Glucose 186 H 12/09/17 12/09/17 12/09/17 11:21 13:02 13:16 WBC RBC Hgb Hct MCV MCH MCHC RDW RDW Differential Plt Count MPV Immature Gran % (Auto) Neut % (Auto) Lymph % (Auto) [place] % (Auto) Eos % (Auto) Baso % (Auto) Absolute Neuts (auto) Absolute Lymphs (auto) Total Counted Specimen Type ART Cancelled ART Sample Site L Radial Cancelled L Radial pH 7.29 L Cancelled 7.54 H Bicarbonate Actual 42.0 H Cancelled 42.2 H POC Total CO2 45 Cancelled 44 Base Excess 15 H Cancelled 20 H O2 Saturation 97 Cancelled 100 H O2 % 40 Cancelled 100 ABG pCO2 88.0 H* Cancelled 49.6 H ABG pO2 113 H Cancelled 475 H* Kevan Test POS Cancelled POS Respiration Rate 12 Cancelled 16 O2 Delivery Device Bi / C PAP Cancelled Vent Liter Flow Cancelled Minute Volume Cancelled Vent Mode Cancelled A-C Tidal Volume Cancelled 450 POC PEEP Cancelled 5 POC Pressure Suppt Cancelled Pressure High Cancelled Pressure Low Cancelled Time High Cancelled Time Low Cancelled EPAP 6 Cancelled IPAP 14 Cancelled Blood Gas Notified Whom ICU Cancelled Blood Gas Notified Time 1100 Cancelled 1310 Sodium Potassium Chloride Carbon Dioxide Anion Gap BUN Creatinine Estim Creat Clear Calc Est GFR (MDRD) Af Amer Est GFR (MDRD) Non-Af BUN/Creatinine Ratio Glucose Calcium Total Creatine Kinase Triglycerides TSH Vancomycin Trough POC Glucose 12/09/17 12/10/17 12/10/17 Unknown 04:15 04:15 WBC 7.5 RBC 4.94 Hgb 12.8 Hct 41.7 MCV 84.4 MCH 25.9 L MCHC 30.7 L RDW 15.8 H RDW Differential 48.8 H Plt Count 164 MPV 10.6 Immature Gran % (Auto) Neut % (Auto) Lymph % (Auto) [place] % (Auto) Eos % (Auto) Baso % (Auto) Absolute Neuts (auto) Absolute Lymphs (auto) Total Counted Specimen Type Sample Site pH Bicarbonate Actual POC Total CO2 Base Excess O2 Saturation O2 % ABG pCO2 ABG pO2 Kevan Test Respiration Rate O2 Delivery Device Liter Flow Minute Volume Vent Mode Tidal Volume POC PEEP POC Pressure Suppt Pressure High Pressure Low Time High Time Low EPAP IPAP Blood Gas Notified Whom Blood Gas Notified Time Sodium 136 132 L Potassium 4.9 5.5 H Chloride 96 L 93 L Carbon Dioxide 36.0 H 33.0 H Anion Gap 4 L 6 BUN 20 H 21 H Creatinine 0.50 L 0.59 Estim Creat Clear Calc 37.71 37.79 Est GFR (MDRD) Af Amer 155 128 Est GFR (MDRD) Non-Af 128 106 BUN/Creatinine Ratio 39.9 H 35.5 H Glucose 111 H 217 H Calcium 8.4 L 8.6 Total Creatine Kinase Triglycerides TSH Vancomycin Trough POC Glucose 12/10/17 12/10/17 12/10/17 09:30 11:05 18:23 WBC RBC Hgb Hct MCV MCH MCHC RDW RDW Differential Plt Count MPV Immature Gran % (Auto) Neut % (Auto) Lymph % (Auto) [place] % (Auto) Eos % (Auto) Baso % (Auto) Absolute Neuts (auto) Absolute Lymphs (auto) Total Counted Specimen Type Sample Site pH Bicarbonate Actual POC Total CO2 Base Excess O2 Saturation O2 % ABG pCO2 ABG pO2 Kevan Test Respiration Rate O2 Delivery Device Liter Flow Minute Volume Vent Mode Tidal Volume POC PEEP POC Pressure Suppt Pressure High Pressure Low Time High Time Low EPAP IPAP Blood Gas Notified Whom Blood Gas Notified Time Sodium Potassium Chloride Carbon Dioxide Anion Gap BUN Creatinine Estim Creat Clear Calc Est GFR (MDRD) Af Amer Est GFR (MDRD) Non-Af BUN/Creatinine Ratio Glucose Calcium Total Creatine Kinase Triglycerides TSH Vancomycin Trough 17.2 H POC Glucose 205 H 156 H 12/10/17 12/11/17 12/11/17 23:09 04:10 04:10 WBC 12.0 H RBC 4.94 Hgb 12.6 Hct 39.6 MCV 80.2 L MCH 25.5 L MCHC 31.8 L RDW 16.1 H RDW Differential 47.3 H Plt Count 229 MPV 10.9 Immature Gran % (Auto) Neut % (Auto) Lymph % (Auto) [place] % (Auto) Eos % (Auto) Baso % (Auto) Absolute Neuts (auto) Absolute Lymphs (auto) Total Counted Specimen Type Sample Site pH Bicarbonate Actual POC Total CO2 Base Excess O2 Saturation O2 % ABG pCO2 ABG pO2 Kevan Test Respiration Rate O2 Delivery Device Liter Flow Minute Volume Vent Mode Tidal Volume POC PEEP POC Pressure Suppt Pressure High Pressure Low Time High Time Low EPAP IPAP Blood Gas Notified Whom Blood Gas Notified Time Sodium 129 L Potassium 4.9 Chloride 94 L Carbon Dioxide 31.0 Anion Gap 4 L BUN 19 H Creatinine 0.50 L Estim Creat Clear Calc 37.79 Est GFR (MDRD) Af Amer 155 Est GFR (MDRD) Non-Af 128 BUN/Creatinine Ratio 37.9 H Glucose 239 H Calcium 8.1 L Total Creatine Kinase Triglycerides TSH Vancomycin Trough POC Glucose 171 H 12/11/17 05:38 WBC RBC Hgb Hct MCV MCH MCHC RDW RDW Differential Plt Count MPV Immature Gran % (Auto) Neut % (Auto) Lymph % (Auto) [place] % (Auto) Eos % (Auto) Baso % (Auto) Absolute Neuts (auto) Absolute Lymphs (auto) Total Counted Specimen Type Sample Site pH Bicarbonate Actual POC Total CO2 Base Excess O2 Saturation O2 % ABG pCO2 ABG pO2 Kevan Test Respiration Rate O2 Delivery Device Liter Flow Minute Volume Vent Mode Tidal Volume POC PEEP POC Pressure Suppt Pressure High Pressure Low Time High Time Low EPAP IPAP Blood Gas Notified Whom Blood Gas Notified Time Sodium Potassium Chloride Carbon Dioxide Anion Gap BUN Creatinine Estim Creat Clear Calc Est GFR (MDRD) Af Amer Est GFR (MDRD) Non-Af BUN/Creatinine Ratio Glucose Calcium Total Creatine Kinase Triglycerides TSH Vancomycin Trough POC Glucose 277 H Microbiology 12/09/17 14:30 Sputum, Induced/[place] Gram Stain - Final 12/09/17 14:30 Sputum, Induced/[place] Respiratory Culture - Preliminary 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 12/07/17 12:14 Sputum, Expectorated/Coughed Gram Stain - Final 12/07/17 12:14 Sputum, Expectorated/Coughed Respiratory Culture - Final Meth. resistant Staph. aureus Mixed Chana Clinical Impression(s) from Imaging Studies Chest X-Ray 12/06/17 14:21 IMPRESSION: No major interval change when compared to April 18, 2017. Electronically Signed: Crow BustamanteDO at 15:32 EDT Tel [phone], Service support , Chest X-Ray 12/09/17 09:45 IMPRESSION: Mild increase opacification remaining right mid/basal lung with decreased volume suggesting atelectasis but cannot exclude superimposed pneumonia. Clinical correlation recommended. Otherwise, no change extensive postsurgical right chest radiographic findings as described which appear chronic. Severe left coronary artery calcifications. Electronically Signed: Mike Ricardo, at 13:14 EDT Tel , Service support , Chest X-Ray 12/09/17 11:54 IMPRESSION: Well-positioned endotracheal tube impression. Normal position extent visualized feeding tube. No change extensive postsurgical chest radiographic findings which appear chronic. Electronically Signed: Mike Ricardo, at 13:00 EDT Tel , Service support , Medical Necessity - Tobacco Use Smoking Status: Never smoker Tobacco Use: Non-smoker Assessment/Plan RECOMMENDATIONS: 1. Proceed with a trial of extubation this morning. 2. Continue beta-cirilo and Cardizem. 3. The patient's baseline methadone and benzodiazepine regimen will need to be restarted. 4. Continue aggressive bronchopulmonary hygiene with vest therapy and PEP 5. Continue scheduled aerosol treatments and IV steroids. Can likely be transitioned to prednisone beginning tomorrow. 6. Continue Eliquis. 7. Continue antibiotics 8. Appropriate ICU prophylaxis with PPI 9. Once extubated, recommend starting BiPAP with naps and nightly. IMPRESSIONS: 1. Acute on chronic hypoxemic and hypercarbic respiratory failure secondary to COPD/bronchiectasis with exacerbation The patient has an underlying severe mixed ventilatory defect along with bronchiectasis and recent recurrent exacerbations. The patient's most recent sputum culture is growing MRSA. Repeat sputum culture completed on December 09 was positive for a gram-negative sharlene. She is on appropriate antibiotics at this time. Her depressed mentation was likely the consequence of a component of baseline CO2 retention coupled with polypharmacy in the setting of multiple sedating medications. The patient failed attempts at noninvasive positive pressure ventilation was subsequently intubated. She responded appropriately to invasive mechanical ventilation with resolution of her acid-base disturbance. She is alert and appropriately interactive this morning. She passed her spontaneous breathing trial and is therefore a candidate for a trial of extubation. We will plan to continue aggressive bronchopulmonary hygiene. Continue scheduled aerosol treatments and steroids accordingly. Upon extubation, recommend starting BiPAP therapy with naps and nightly. 2. Hypercarbic encephalopathy Resolved this morning. Likely secondary to underlying lung disease coupled with polypharmacy. The patient utilizes methadone and benzodiazepines at her baseline. These are reportedly being managed by palliative care on an outpatient basis. Recommend slow reintroduction of the aforementioned medications upon successful extubation. In addition, we will transition the patient from nocturnal CPAP to BiPAP therapy to provide some form of ventilatory support. 3. History of obstructive sleep apnea The patient may eventually need to be transition from her current CPAP therapy over to BiPAP in order to provide some form of baseline ventilatory support. This can be discussed further once the patient is successfully extubated. 4. History of lung resection/chronic atrial fibrillation/pulmonary hypertension/cardiomyopathy Complicates care, management, recovery and prognosis. Likely okay to continue baseline home medications. TIME: 35 minutes of critical care time, independent of procedures, was spent addressing the patient's acute on chronic respiratory failure, COPD/bronchiectasis with exacerbation, hypercarbic encephalopathy, review of all data and collaboration with the care team. ([id number]) Code Visit [id number]: [id number] Critical care first hour
--- NOTE | 2017-12-11 06:41 | PN_ITS ---
Subjective: The patient was seen and examined at the bedside this morning. Events from the last 24 hours have been reviewed. The patient is currently afebrile, hemodynamically stable and maintaining appropriate oxygen saturations on an FiO2 of 30%. Secretion production has decreased over the last 24-48 hours. The patient's heart rate is under better control this morning. She does report a mild degree of anxiety. However, she did pass her spontaneous breathing trial this morning. She is alert and appropriately interactive. Objective: The patient's most recent lab work, culture data and imaging studies have all been personally reviewed. Blood cultures have shown no growth to date. Sputum culture is positive for MRSA. Urine culture is pending. Prior surface echocardiogram from August 2016 revealed normal LV size and thickness with an ejection fraction of 45-50%. Right ventricular systolic pressure was estimated to be 40 mmHg. General: No apparent distress, - - Remains intubated. Currently tolerating CPAP. HEENT: Atraumatic, PERRLA, Normocephalic Oral: No Gingival or Mucosal Lesions/ Ulcerations, - - Endotracheal and OG tubes in place. Neck: Supple, No Nodes, Trachea Midline Lungs: Diminished, - - Scattered bilateral rhonchi. Cardiovascular: Normal S1, Normal S2, Irregular Rate, No rub noted, No Gallop, Tachycardic Abdomen: Bowel Sounds Present, Soft, Non Tender Extremities: No clubbing, No cyanosis, - - Trace pedal edema Skin: No rashes, No breakdown Musculoskeletal: Cachexia Lymphatic: No Cervical, Supraclavicular, or Inguinal Adenopathy Neurological: - - Moves all extremities spontaneously. Alert and following commands appropriately. Vital Signs Temp Pulse Resp BP Pulse Ox 99 F 113 H 18 151/89 H 100 12/11/17 06:00 12/11/17 06:00 12/11/17 06:00 12/11/17 06:00 12/11/17 06:00 Oxygen Flow Rate (L/min) 2 Oxygen Delivery Method CPAP Weight: 112 lb 3.445 oz Body Mass Index (BMI) 16.1 Intake and Output for Last 24 Hours 12/09/17 12/10/17 12/11/17 23:59 23:59 23:59 Intake Total 1508.8 / 1508.8 3964.4 / 3964.4 1362.2 / 1362.2 Output Total 700 / 700 725 / 725 600 / 600 Balance 808.8 / 808.8 3239.4 / 3239.4 762.2 / 762.2 Labs (Last 48 Hours) 12/09/17 12/09/17 12/09/17 06:50 06:50 06:50 WBC 6.7 RBC 4.72 Hgb 12.0 Hct 41.7 MCV 88.3 MCH 25.4 L MCHC 28.8 L RDW 16.0 H RDW Differential 51.9 H Plt Count 159 MPV 10.9 Immature Gran % (Auto) 1.600 H Neut % (Auto) 78.2 H Lymph % (Auto) 14.5 L [place] % (Auto) 5.5 Eos % (Auto) 0.1 Baso % (Auto) 0.1 Absolute Neuts (auto) 5.2 Absolute Lymphs (auto) 0.97 Total Counted Not Reportable Specimen Type Sample Site pH Bicarbonate Actual POC Total CO2 Base Excess O2 Saturation O2 % ABG pCO2 ABG pO2 Kevan Test Respiration Rate O2 Delivery Device Liter Flow Minute Volume Vent Mode Tidal Volume POC PEEP POC Pressure Suppt Pressure High Pressure Low Time High Time Low EPAP IPAP Blood Gas Notified Whom Blood Gas Notified Time Sodium 135 L Potassium 5.5 H Chloride 96 L Carbon Dioxide 37.0 H Anion Gap 2 L BUN 19 H Creatinine 0.38 L Estim Creat Clear Calc 35.37 Est GFR (MDRD) Af Amer 212 Est GFR (MDRD) Non-Af 175 BUN/Creatinine Ratio 49.7 H Glucose 175 H Calcium 8.4 L Total Creatine Kinase Triglycerides TSH 1.18 Vancomycin Trough POC Glucose 12/09/17 12/09/17 12/09/17 06:50 09:16 09:41 WBC RBC Hgb Hct MCV MCH MCHC RDW RDW Differential Plt Count MPV Immature Gran % (Auto) Neut % (Auto) Lymph % (Auto) [place] % (Auto) Eos % (Auto) Baso % (Auto) Absolute Neuts (auto) Absolute Lymphs (auto) Total Counted Specimen Type ART Sample Site L Radial pH 7.26 L Bicarbonate Actual 41.0 H POC Total CO2 44 Base Excess 14 H O2 Saturation 78 L O2 % ABG pCO2 92.1 H* ABG pO2 53 L Kevan Test POS Respiration Rate O2 Delivery Device Nasal Can Liter Flow 3.0 Minute Volume Vent Mode Tidal Volume POC PEEP POC Pressure Suppt Pressure High Pressure Low Time High Time Low EPAP IPAP Blood Gas Notified Whom HOSP Blood Gas Notified Time 940 Sodium Potassium Chloride Carbon Dioxide Anion Gap BUN Creatinine Estim Creat Clear Calc Est GFR (MDRD) Af Amer Est GFR (MDRD) Non-Af BUN/Creatinine Ratio Glucose Calcium Total Creatine Kinase 44 Triglycerides 89 TSH Vancomycin Trough POC Glucose 186 H 12/09/17 12/09/17 12/09/17 11:21 13:02 13:16 WBC RBC Hgb Hct MCV MCH MCHC RDW RDW Differential Plt Count MPV Immature Gran % (Auto) Neut % (Auto) Lymph % (Auto) [place] % (Auto) Eos % (Auto) Baso % (Auto) Absolute Neuts (auto) Absolute Lymphs (auto) Total Counted Specimen Type ART Cancelled ART Sample Site L Radial Cancelled L Radial pH 7.29 L Cancelled 7.54 H Bicarbonate Actual 42.0 H Cancelled 42.2 H POC Total CO2 45 Cancelled 44 Base Excess 15 H Cancelled 20 H O2 Saturation 97 Cancelled 100 H O2 % 40 Cancelled 100 ABG pCO2 88.0 H* Cancelled 49.6 H ABG pO2 113 H Cancelled 475 H* Kevan Test POS Cancelled POS Respiration Rate 12 Cancelled 16 O2 Delivery Device Bi / C PAP Cancelled Vent Liter Flow Cancelled Minute Volume Cancelled Vent Mode Cancelled A-C Tidal Volume Cancelled 450 POC PEEP Cancelled 5 POC Pressure Suppt Cancelled Pressure High Cancelled Pressure Low Cancelled Time High Cancelled Time Low Cancelled EPAP 6 Cancelled IPAP 14 Cancelled Blood Gas Notified Whom ICU Cancelled Blood Gas Notified Time 1100 Cancelled 1310 Sodium Potassium Chloride Carbon Dioxide Anion Gap BUN Creatinine Estim Creat Clear Calc Est GFR (MDRD) Af Amer Est GFR (MDRD) Non-Af BUN/Creatinine Ratio Glucose Calcium Total Creatine Kinase Triglycerides TSH Vancomycin Trough POC Glucose 12/09/17 12/10/17 12/10/17 Unknown 04:15 04:15 WBC 7.5 RBC 4.94 Hgb 12.8 Hct 41.7 MCV 84.4 MCH 25.9 L MCHC 30.7 L RDW 15.8 H RDW Differential 48.8 H Plt Count 164 MPV 10.6 Immature Gran % (Auto) Neut % (Auto) Lymph % (Auto) [place] % (Auto) Eos % (Auto) Baso % (Auto) Absolute Neuts (auto) Absolute Lymphs (auto) Total Counted Specimen Type Sample Site pH Bicarbonate Actual POC Total CO2 Base Excess O2 Saturation O2 % ABG pCO2 ABG pO2 Kevan Test Respiration Rate O2 Delivery Device Liter Flow Minute Volume Vent Mode Tidal Volume POC PEEP POC Pressure Suppt Pressure High Pressure Low Time High Time Low EPAP IPAP Blood Gas Notified Whom Blood Gas Notified Time Sodium 136 132 L Potassium 4.9 5.5 H Chloride 96 L 93 L Carbon Dioxide 36.0 H 33.0 H Anion Gap 4 L 6 BUN 20 H 21 H Creatinine 0.50 L 0.59 Estim Creat Clear Calc 37.71 37.79 Est GFR (MDRD) Af Amer 155 128 Est GFR (MDRD) Non-Af 128 106 BUN/Creatinine Ratio 39.9 H 35.5 H Glucose 111 H 217 H Calcium 8.4 L 8.6 Total Creatine Kinase Triglycerides TSH Vancomycin Trough POC Glucose 12/10/17 12/10/17 12/10/17 09:30 11:05 18:23 WBC RBC Hgb Hct MCV MCH MCHC RDW RDW Differential Plt Count MPV Immature Gran % (Auto) Neut % (Auto) Lymph % (Auto) [place] % (Auto) Eos % (Auto) Baso % (Auto) Absolute Neuts (auto) Absolute Lymphs (auto) Total Counted Specimen Type Sample Site pH Bicarbonate Actual POC Total CO2 Base Excess O2 Saturation O2 % ABG pCO2 ABG pO2 Kevan Test Respiration Rate O2 Delivery Device Liter Flow Minute Volume Vent Mode Tidal Volume POC PEEP POC Pressure Suppt Pressure High Pressure Low Time High Time Low EPAP IPAP Blood Gas Notified Whom Blood Gas Notified Time Sodium Potassium Chloride Carbon Dioxide Anion Gap BUN Creatinine Estim Creat Clear Calc Est GFR (MDRD) Af Amer Est GFR (MDRD) Non-Af BUN/Creatinine Ratio Glucose Calcium Total Creatine Kinase Triglycerides TSH Vancomycin Trough 17.2 H POC Glucose 205 H 156 H 12/10/17 12/11/17 12/11/17 23:09 04:10 04:10 WBC 12.0 H RBC 4.94 Hgb 12.6 Hct 39.6 MCV 80.2 L MCH 25.5 L MCHC 31.8 L RDW 16.1 H RDW Differential 47.3 H Plt Count 229 MPV 10.9 Immature Gran % (Auto) Neut % (Auto) Lymph % (Auto) [place] % (Auto) Eos % (Auto) Baso % (Auto) Absolute Neuts (auto) Absolute Lymphs (auto) Total Counted Specimen Type Sample Site pH Bicarbonate Actual POC Total CO2 Base Excess O2 Saturation O2 % ABG pCO2 ABG pO2 Kevan Test Respiration Rate O2 Delivery Device Liter Flow Minute Volume Vent Mode Tidal Volume POC PEEP POC Pressure Suppt Pressure High Pressure Low Time High Time Low EPAP IPAP Blood Gas Notified Whom Blood Gas Notified Time Sodium 129 L Potassium 4.9 Chloride 94 L Carbon Dioxide 31.0 Anion Gap 4 L BUN 19 H Creatinine 0.50 L Estim Creat Clear Calc 37.79 Est GFR (MDRD) Af Amer 155 Est GFR (MDRD) Non-Af 128 BUN/Creatinine Ratio 37.9 H Glucose 239 H Calcium 8.1 L Total Creatine Kinase Triglycerides TSH Vancomycin Trough POC Glucose 171 H 12/11/17 05:38 WBC RBC Hgb Hct MCV MCH MCHC RDW RDW Differential Plt Count MPV Immature Gran % (Auto) Neut % (Auto) Lymph % (Auto) [place] % (Auto) Eos % (Auto) Baso % (Auto) Absolute Neuts (auto) Absolute Lymphs (auto) Total Counted Specimen Type Sample Site pH Bicarbonate Actual POC Total CO2 Base Excess O2 Saturation O2 % ABG pCO2 ABG pO2 Kevan Test Respiration Rate O2 Delivery Device Liter Flow Minute Volume Vent Mode Tidal Volume POC PEEP POC Pressure Suppt Pressure High Pressure Low Time High Time Low EPAP IPAP Blood Gas Notified Whom Blood Gas Notified Time Sodium Potassium Chloride Carbon Dioxide Anion Gap BUN Creatinine Estim Creat Clear Calc Est GFR (MDRD) Af Amer Est GFR (MDRD) Non-Af BUN/Creatinine Ratio Glucose Calcium Total Creatine Kinase Triglycerides TSH Vancomycin Trough POC Glucose 277 H Microbiology 12/09/17 14:30 Sputum, Induced/Lukens Gram Stain - Final 12/09/17 14:30 Sputum, Induced/Lukens Respiratory Culture - Preliminary GNR lactose process development associate 12/09/17 Unknown Urine Catheter - Hernandez Urine Culture - Preliminary Culture exhibits no growth. 12/07/17 12:14 Sputum, Expectorated/Coughed Gram Stain - Final 12/07/17 12:14 Sputum, Expectorated/Coughed Respiratory Culture - Final Meth. resistant Staph. aureus Mixed Chana Clinical Impression(s) from Imaging Studies Chest X-Ray 12/06/17 14:21 IMPRESSION: No major interval change when compared to April 18, 2017. Electronically Signed: Crow BustamanteDO at 15:32 EDT Tel [phone], Service support , Chest X-Ray 12/09/17 09:45 IMPRESSION: Mild increase opacification remaining right mid/basal lung with decreased volume suggesting atelectasis but cannot exclude superimposed pneumonia. Clinical correlation recommended. Otherwise, no change extensive postsurgical right chest radiographic findings as described which appear chronic. Severe left coronary artery calcifications. Electronically Signed: Mike Ricardo, at 13:14 EDT Tel , Service support , Chest X-Ray 12/09/17 11:54 IMPRESSION: Well-positioned endotracheal tube impression. Normal position extent visualized feeding tube. No change extensive postsurgical chest radiographic findings which appear chronic. Electronically Signed: Mike Ricardo, at 13:00 EDT Tel , Service support , Medical Necessity - Tobacco Use Smoking Status: Never smoker Tobacco Use: Non-smoker Assessment/Plan RECOMMENDATIONS: 1. Proceed with a trial of extubation this morning. 2. Continue beta-cirilo and Cardizem. 3. The patient's baseline methadone and benzodiazepine regimen will need to be restarted. 4. Continue aggressive bronchopulmonary hygiene with vest therapy and PEP 5. Continue scheduled aerosol treatments and IV steroids. Can likely be transitioned to prednisone beginning tomorrow. 6. Continue Eliquis. 7. Continue antibiotics 8. Appropriate ICU prophylaxis with PPI 9. Once extubated, recommend starting BiPAP with naps and nightly. IMPRESSIONS: 1. Acute on chronic hypoxemic and hypercarbic respiratory failure secondary to COPD/bronchiectasis with exacerbation The patient has an underlying severe mixed ventilatory defect along with bronchiectasis and recent recurrent exacerbations. The patient's most recent sputum culture is growing MRSA. Repeat sputum culture completed on December 09 was positive for a gram-negative sharlene. She is on appropriate antibiotics at this time. Her depressed mentation was likely the consequence of a component of baseline CO2 retention coupled with polypharmacy in the setting of multiple sedating medications. The patient failed attempts at noninvasive positive pressure ventilation was subsequently intubated. She responded appropriately to invasive mechanical ventilation with resolution of her acid-base disturbance. She is alert and appropriately interactive this morning. She passed her spontaneous breathing trial and is therefore a candidate for a trial of extubation. We will plan to continue aggressive bronchopulmonary hygiene. Continue scheduled aerosol treatments and steroids accordingly. Upon extubation , recommend starting BiPAP therapy with naps and nightly. 2. Hypercarbic encephalopathy Resolved this morning. Likely secondary to underlying lung disease coupled with polypharmacy. The patient utilizes methadone and benzodiazepines at her baseline. These are reportedly being managed by palliative care on an outpatient basis. Recommend slow reintroduction of the aforementioned medications upon successful extubation. In addition, we will transition the patient from nocturnal CPAP to BiPAP therapy to provide some form of ventilatory support. 3. History of obstructive sleep apnea The patient may eventually need to be transition from her current CPAP therapy over to BiPAP in order to provide some form of baseline ventilatory support. This can be discussed further once the patient is successfully extubated. 4. History of lung resection/chronic atrial fibrillation/pulmonary hypertension /cardiomyopathy Complicates care, management, recovery and prognosis. Likely okay to continue baseline home medications. TIME: 35 minutes of critical care time, independent of procedures, was spent addressing the patient's acute on chronic respiratory failure, COPD/ bronchiectasis with exacerbation, hypercarbic encephalopathy, review of all data and collaboration with the care team. ([id number]) Code Visit 9xxxx: [id number] Critical care first hour
[2017-12-11] MEDS: Ipratropium/Albuterol Sulfate 3 ML AMPUL.NEB INHALATION ×4 (06:43→19:05)
[2017-12-11] MEDS: Ferrous Gluconate 325 MG Tablet PO ×2 (08:39→17:23)
[2017-12-11] MEDS: clonazePAM 0.5 MG Tablet PO ×2 (08:39→20:34)
[2017-12-11] MEDS: Calcium Carb/Vitamin D 1 TABLET Tablet PO ×2 (08:39→17:23)
[2017-12-11] MEDS: Magnesium Oxide 400 MG Tablet PO ×2 (08:41→17:23)
[2017-12-11] MEDS: Multivitamins,Ther W-Minerals Tablet 1 TABLET PO (08:41)
--- NOTE | 2017-12-11 09:07 | PN_ITS ---
Subjective: Chief complaint: Follow-up after admission for acute on chronic hypoxic and hypercapnic respiratory failure due to COPD/bronchiectasis exacerbation. Patient seen and examined. No acute events overnight. She was extubated this morning, maintaining her oxygen at 3 L at this time. Her breathing is labored, start short of breath. She is tachycardic, blood pressure stable. - Physical Exam General: Alert, Oriented x3, Cooperative, - - Moderately short of breath. HEENT: Atraumatic, PERRLA, EOMI Oral: Moist Mucosa, No Gingival or Mucosal Lesions/ Ulcerations Neck: Supple, No JVD, Negative Carotid Bruits, Trachea Midline, Thyroid Normal Size and Texture Lungs: Clear to auscultation, No wheeze, No rales, Diminished, Rhonchi, Short of Breath Cardiovascular: Normal S1, Normal S2, PMI Normal, Irregular Rate, Tachycardic Abdomen: Bowel Sounds Present, Soft, Non Tender, Non-Distended, No Hepato- splenomegaly Extremities: No clubbing, No cyanosis, No edema Skin: No rashes, No breakdown Lymphatic: No Cervical, Supraclavicular, or Inguinal Adenopathy Neurological: Cranial nerves II-XII grossly intact, Motor Exam 5/5 strength throughout Psych/Mental Status: Normal Affect, Appropriate Vital Signs Temp Pulse Resp BP Pulse Ox 99.3 F H 112 H 23 H 151/89 H 97 12/11/17 06:55 12/11/17 06:55 12/11/17 06:55 12/11/17 06:55 12/11/17 06:55 Oxygen Flow Rate (L/min) 2 Oxygen Delivery Method CPAP Weight: 112 lb 3.445 oz Body Mass Index (BMI) 16.1 Intake and Output for Last 24 Hours 12/09/17 12/10/17 12/11/17 23:59 23:59 23:59 Intake Total 1508.8 / 1508.8 3964.4 / 3964.4 1362.2 / 1362.2 Output Total 700 / 700 725 / 725 600 / 600 Balance 808.8 / 808.8 3239.4 / 3239.4 762.2 / 762.2 Microbiology Past 72 Hours 12/09/17 14:30 Gram Stain - Final Sputum, Induced/Lukens Respiratory Culture - Preliminary Klebsiella pneumoniae sp pneum#2 Klebsiella pneumoniae sp pneum 12/09/17 Unknown Urine Culture - Preliminary Urine Catheter - Hernandez Culture exhibits no growth. 12/07/17 12:14 Gram Stain - Final Sputum, Expectorated/Coughed Respiratory Culture - Final Meth. resistant Staph. aureus Mixed Chana Laboratory Tests Past 24 Hrs 12/10/17 12/11/17 12/11/17 09:30 04:10 04:10 WBC 12.0 H RBC 4.94 Hgb 12.6 Hct 39.6 MCV 80.2 L MCH 25.5 L MCHC 31.8 L RDW 16.1 H RDW Differential 47.3 H Plt Count 229 MPV 10.9 Sodium 129 L Potassium 4.9 Chloride 94 L Carbon Dioxide 31.0 Anion Gap 4 L BUN 19 H Creatinine 0.50 L Estim Creat Clear Calc 37.79 Est GFR (MDRD) Af Amer 155 Est GFR (MDRD) Non-Af 128 BUN/Creatinine Ratio 37.9 H Glucose 239 H Calcium 8.1 L Vancomycin Trough 17.2 H POC Glucose 12/11/17 12/10/17 12/10/17 05:38 23:09 18:23 POC Glucose 277 H 171 H 156 H 12/10/17 11:05 POC Glucose 205 H Medical Necessity - Tobacco Use Smoking Status: Never smoker Tobacco Use: Non-smoker Assessment/Plan This is a 72 years old female patient admitted because of worsening shortness of breath, low-grade fever and congestion and she was found to have acute on chronic hypoxic and hypercapnic respiratory failure secondary to exacerbation of COPD/bronchiectasis and also found to have metabolic encephalopathy and A. fib with RVR. #1 acute on chronic hypoxic and hypercapnic respiratory failure: Status post extubation, continued her pulse ox on 3 L. She is tachycardic, blood pressure stable and she is afebrile. She remains in A. fib and heart rate has been around 110. She is on IV antibiotics, bronchodilators and IV steroids. Plan to start her back on Coreg and Cardizem as well as Eliquis today. #2 acute COPD/bronchiectasis exacerbation: She is on IV steroids, IV antibiotics and bronchodilators. Sputum culture revealed MRSA and Klebsiella pneumonia. Blood culture showed no growth in 48 hours. Nasal swab for influenza a and B were negative. She is on IV cefepime and vancomycin. Plan to continue same treatment. #3 A. fib with RVR: She remained in A. fib, heart rate has been around 110 after extubation. Blood pressure stabilized, plan to start him back on home doses of Coreg and Cardizem this morning. She is on Eliquis twice daily. #4 metabolic encephalopathy: Secondary to acute on chronic hypoxic and hypercarbic respiratory failure. After extubation, patient is alert and oriented ?3. #5 hyponatremia/hyperkalemia: Potassium is down to normal, sodium is again low at 129 today. Plan to repeat BMP tomorrow morning. #6 history of Takotsubo cardiomyopathy: Most recent 2D echocardiogram was from August, and revealed ejection fraction of 40% and it was improved. At this time, no evidence of acute CHF. #7 hypothyroidism: Continue levothyroxine. #8 chronic atrial fibrillation: Plan as above. #9 DVT prophylaxis: Continue Eliquis. This note was generated with [employer] dictation software. It may contain incorrect words, spelling, and punctuation that were not noted in checking the note before signing. Code Visit Inpatient E&M: 97318 Subs Hosp L2
--- NOTE | 2017-12-11 09:46 | CASEMGMT ---
Participated in interdisciplinary rounds. Patient was extubated this am. Currently on 3 liters o2 and she wears o2 continuously at home at 2 liters. Physical therapy to evaluate her today. Plan is to transfer out of ICU tomorrow. Will need reassess for any needs after PT eval. Original plan prior to intubation was home. Opal Hernadez RN, CCM.
[2017-12-11] MEDS: Senna Tablet 1 TABLET PO ×2 (10:32→22:04)
[2017-12-11] MEDS: Sertraline 50 MG Tablet PO (10:32)
[2017-12-11] MEDS: CHLORHEXIDINE GLUC 2% CLOTH 1 EACH TOWELETTE TOPICAL (10:32)
[2017-12-11] MEDS: APIXABAN 2.5 MG TABLET PO ×2 (10:32→22:14)
[2017-12-11] MEDS: dilTIAZem CD 120 MG Capsule PO ×2 (10:32→22:00)
[2017-12-11] MEDS: Famotidine 20 MG Tablet PO (10:33)
[2017-12-11] MEDS: Carvedilol 6.25 MG Tablet PO ×2 (10:33→22:00)
[2017-12-11] MEDS: Fluticasone 0.05% 1 SPRAY NASAL.SRY 2 SPRAY NASAL (10:33)
--- NOTE | 2017-12-11 11:24 | CPS ---
Pt refusing bipap during nap at this time. Encouraged patient to wear it and pt continues to refuse.
[2017-12-11 12:11] LABS: Bedside Glucose 158 mg/dL (70-110)
--- NOTE | 2017-12-11 16:14 | CPS ---
Pt agreed to wear bipap and left it on from <40 minutes. Encouraged pt to wear it while she continues to nap. Pt stated she was not napping. Duoderm was offered, pt refused and stated she does not want to wear bipap at this time.
[2017-12-11] MEDS: Acetaminophen 650 MG/20 ML UDC PO (18:17)
[2017-12-11 18:21] LABS: Bedside Glucose 121 mg/dL (70-110)
[2017-12-11] MEDS: 0.9% NaCl Peripheral Flush Adult/Peds IV (21:59)
[2017-12-11 22:26] LABS: Bedside Glucose 132 mg/dL (70-110)
[2017-12-12] VITALS (24 sets, daily range): BP systolic 119–146; BP diastolic 67–95; PULSE 84–113; RESP 12–22; TEMP 36.7–37.3; O2SAT 96–100
[2017-12-12 04:48] LABS: Hematocrit 36.5 % (37-47); Hemoglobin 11.7 g/dl (12.0-15.0); Mean Corp Hgb Conc 32.1 g/gl (32-36); Mean Corpuscular Hgb 25.7 pg (27.0-32.0); Mean Corpuscular Volume 80.2 fL (81-99); Mean Platelet Vol. 10.6 fl (6.2-12.0); Platelet Count 206 K/mm3 (150-450); RBC Distribution Width CV 16.1 % (11.6-14.6); RBC Distribution Width SD 47.3 fl (35.1-43.9); Red Blood Count 4.55 M/mm3 (4.2-5.4); White Blood Count 8.1 K/mm3 (4.4-11.0)
[2017-12-12 04:55] LABS: BUN 17 mg/dL (7-18); BUN/Creat Ratio 38.7 RATIO (10-20); Calcium,Total 7.9 mg/dL (8.5-10.1); Creatinine, Serum 0.44 mg/dL (0.55-1.02); EST Glomerular Filtration Rate 149 mL/min (>60); Est Glom Filt Rate - Afr Amer 180 mL/min (>60); Estimated Creatinine Clearance 39.66 ml/min; Glucose 134 mg/dL (74-106)
[2017-12-12 04:56] LABS: Anion Gap 5 (5-15); Chloride 96 mmol/L (98-107); Potassium 4.5 mmol/L (3.5-5.1); Sodium Level 135 mmol/L (136-145)
[2017-12-12 04:57] LABS: Scan Indicated on CBC? Y/N NO
[2017-12-12] MEDS: Cefazolin 2 GM in 0.9% Normal Saline 100 ML IV (05:00)
[2017-12-12] MEDS: 0.9% NaCl Peripheral Flush Adult/Peds IV ×3 (05:01→23:01)
[2017-12-12] MEDS: NYSTATIN 500,000 UNIT/5 ML UDC 500000 UNIT PO ×3 (05:01→23:03)
[2017-12-12] MEDS: CHLORHEXIDINE GLUC 2% CLOTH 1 EACH TOWELETTE TOPICAL (05:01)
[2017-12-12] MEDS: Levothyroxine 88 MCG Tablet PO (05:03)
[2017-12-12] MEDS: Ipratropium/Albuterol Sulfate 3 ML AMPUL.NEB INHALATION ×3 (06:45→18:53)
[2017-12-12 07:05] LABS: Bedside Glucose 137 mg/dL (70-110)
--- NOTE | 2017-12-12 07:05 | PN_ITS ---
Subjective: Patient did well overnight. Patient was extubated yesterday and has been weaned to nasal cannula oxygen. Patient did use BiPAP overnight for approximately 5 hours, but was refusing during naps yesterday. Patient continues to have a productive cough, but overall feels subjectively improved compared to previous. No nausea, vomiting or posttussive emesis has been reported. General: Alert, Oriented x3, Cooperative, No apparent distress, - - Cachectic. Speaking in full sentences. HEENT: Atraumatic, PERRLA, EOMI, Normocephalic, - - Temporal wasting. Oral: Moist Mucosa, No Gingival or Mucosal Lesions/ Ulcerations Neck: Supple, No JVD, No Nodes, Trachea Midline Lungs: No wheeze, No rales, Diminished, Rhonchi, - - Symmetric expansion. No dullness to percussion. Cardiovascular: Normal S1, Normal S2, Irregular Rate, Murmur - Grade 3 out of 6 systolic ejection murmur at the right sternal border, No rub noted, No Gallop Abdomen: Bowel Sounds Present, Soft, Non Tender, Non-Distended Extremities: No cyanosis, No edema, Capillary Refill Less than 3 Seconds, Clubbing Skin: No rashes, No breakdown Musculoskeletal: No Tenderness to Palpation of Joints or Extremities, Cachexia, Muscle Wasting Lymphatic: No Cervical, Supraclavicular, or Inguinal Adenopathy Neurological: Cranial nerves II-XII grossly intact, Neuro grossly intact, Motor Exam 5/5 strength throughout Psych/Mental Status: Alert and oriented to time, place, person, mood and affect Vital Signs Temp Pulse Resp BP Pulse Ox 37.1 C 103 H 16 137/78 H 96 12/12/17 06:00 12/12/17 06:49 12/12/17 06:49 12/12/17 06:00 12/12/17 06:49 Oxygen Flow Rate (L/min) 2 Oxygen Delivery Method Nasal Cannula Weight: 50.6 kg Body Mass Index (BMI) 16.1 Intake and Output for Last 24 Hours 12/10/17 12/11/17 12/12/17 23:59 23:59 23:59 Intake Total 3964.4 / 3964.4 4155.2 / 4155.2 969 / 969 Output Total 725 / 725 2687 / 2687 317 / 317 Balance 3239.4 / 3239.4 1468.2 / 1468.2 652 / 652 Labs (Last 48 Hours) 12/10/17 12/10/17 12/10/17 09:30 11:05 18:23 WBC RBC Hgb Hct MCV MCH MCHC RDW RDW Differential Plt Count MPV Sodium Potassium Chloride Carbon Dioxide Anion Gap BUN Creatinine Estim Creat Clear Calc Est GFR (MDRD) Af Amer Est GFR (MDRD) Non-Af BUN/Creatinine Ratio Glucose Calcium Vancomycin Trough 17.2 H POC Glucose 205 H 156 H 12/10/17 12/11/17 12/11/17 23:09 04:10 04:10 WBC 12.0 H RBC 4.94 Hgb 12.6 Hct 39.6 MCV 80.2 L MCH 25.5 L MCHC 31.8 L RDW 16.1 H RDW Differential 47.3 H Plt Count 229 MPV 10.9 Sodium 129 L Potassium 4.9 Chloride 94 L Carbon Dioxide 31.0 Anion Gap 4 L BUN 19 H Creatinine 0.50 L Estim Creat Clear Calc 37.79 Est GFR (MDRD) Af Amer 155 Est GFR (MDRD) Non-Af 128 BUN/Creatinine Ratio 37.9 H Glucose 239 H Calcium 8.1 L Vancomycin Trough POC Glucose 171 H 12/11/17 12/11/17 12/11/17 05:38 11:53 17:10 WBC RBC Hgb Hct MCV MCH MCHC RDW RDW Differential Plt Count MPV Sodium Potassium Chloride Carbon Dioxide Anion Gap BUN Creatinine Estim Creat Clear Calc Est GFR (MDRD) Af Amer Est GFR (MDRD) Non-Af BUN/Creatinine Ratio Glucose Calcium Vancomycin Trough POC Glucose 277 H 158 H 121 H 12/11/17 12/12/17 12/12/17 22:17 04:40 04:40 WBC 8.1 RBC 4.55 Hgb 11.7 L Hct 36.5 L MCV 80.2 L MCH 25.7 L MCHC 32.1 RDW 16.1 H RDW Differential 47.3 H Plt Count 206 MPV 10.6 Sodium 135 L Potassium 4.5 Chloride 96 L Carbon Dioxide 34.0 H Anion Gap 5 BUN 17 Creatinine 0.44 L Estim Creat Clear Calc 39.66 Est GFR (MDRD) Af Amer 180 Est GFR (MDRD) Non-Af 149 BUN/Creatinine Ratio 38.7 H Glucose 134 H Calcium 7.9 L Vancomycin Trough POC Glucose 132 H Microbiology 12/09/17 14:30 Sputum, Induced/Lukens Gram Stain - Final 12/09/17 14:30 Sputum, Induced/Lukens Respiratory Culture - Final Klebsiella pneumoniae sp pneum#2 Klebsiella pneumoniae sp pneum 12/09/17 Unknown Urine Catheter - Hernanedz Urine Culture - Preliminary Culture exhibits no growth. Medical Necessity - Tobacco Use Smoking Status: Never smoker Tobacco Use: Non-smoker Assessment/Plan RECOMMENDATIONS: 1. Proceed with a trial of extubation this morning. 2. Continue beta-cirilo, Cardizem and Eliquis. 3. Okay to reinitiate methadone and benzodiazepine 4. Continue aggressive bronchopulmonary hygiene with vest therapy and PEP 5. Transition to prednisone therapy 6. Continue with antibiotics 7. Okay to transfer from the intensive care unit from my perspective IMPRESSIONS: 1. Acute on chronic hypoxemic and hypercarbic respiratory failure secondary to COPD/bronchiectasis with exacerbation Patient appears to be responding to extubation well. Continue to wean oxygen as tolerated. 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 Patient is on appropriate antibiotics at this time. Continue with aggressive pulmonary toileting with Acapella and vest therapy. Aggressive nutritional support. Okay to transfer from the intensive care unit from my perspective. 2. 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 Patient is on benzodiazepines and methadone at baseline secondary to uncontrolled symptoms despite maximal medical therapy. This can likely be reinitiated in a stepwise fashion with repeat titration up. Continue to keep saturations in the lower 90s to avoid CO2 retention. Patient would likely benefit from BiPAP with all sleep for now. 3. History of obstructive sleep apnea Likely needs transition to BiPAP therapy given baseline respiratory issues. This can be completed on discharge. 4. 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 Likely okay to continue baseline home medications. Code Visit Inpatient E&M: 99635 [facility] Hosp L3
--- NOTE | 2017-12-12 08:53 | PN_ITS ---
Subjective: Chief complaint: Follow-up after admission for acute on chronic hypoxic and hypercapnic respiratory failure due to COPD/bronchiectasis exacerbation. Patient seen and examined. No acute events overnight. Her breathing continued to improve every day, she is down to 2 L this morning and her pulse ox is maintained. Her heart rate is down to 90s-100, blood pressure stable. She reported improvement of her all of her condition including her shortness of breath. She did use BiPAP last night for approximately 5 hours. She is afebrile, heart rate has been around 100, blood pressure stable, pulse ox is 96 % on 2 L. - Physical Exam General: Alert, Oriented x3, Cooperative, No apparent distress HEENT: Atraumatic, PERRLA, EOMI Oral: Moist Mucosa, No Gingival or Mucosal Lesions/ Ulcerations Neck: Supple, No JVD, Negative Carotid Bruits, Trachea Midline, Thyroid Normal Size and Texture Lungs: No wheeze, No rales, Diminished, Rhonchi, - - Decreased breath sounds bilateral, bilateral rhonchi. Cardiovascular: Normal S1, Normal S2, No murmurs, PMI Normal, Irregular Rate Abdomen: Bowel Sounds Present, Soft, Non Tender, Non-Distended, No Hepato- splenomegaly Extremities: No clubbing, No cyanosis, No edema Skin: No rashes, No breakdown Lymphatic: No Cervical, Supraclavicular, or Inguinal Adenopathy Neurological: Cranial nerves II-XII grossly intact, Neuro grossly intact Psych/Mental Status: Normal Affect, Appropriate, Alert and oriented to time, place, person, mood and affect Vital Signs Temp Pulse Resp BP Pulse Ox 98.9 F 106 H 18 123/91 H 96 12/12/17 07:00 12/12/17 08:00 12/12/17 08:00 12/12/17 08:00 12/12/17 08:00 Oxygen Flow Rate (L/min) 3 Oxygen Delivery Method Nasal Cannula Weight: 111 lb 8.862 oz Body Mass Index (BMI) 16.1 Intake and Output for Last 24 Hours 12/10/17 12/11/17 12/12/17 23:59 23:59 23:59 Intake Total 3964.4 / 3964.4 4155.2 / 4155.2 969 / 969 Output Total 725 / 725 2687 / 2687 317 / 317 Balance 3239.4 / 3239.4 1468.2 / 1468.2 652 / 652 Microbiology Past 72 Hours 12/09/17 14:30 Gram Stain - Final Sputum, Induced/Lukens Respiratory Culture - Final Klebsiella pneumoniae sp pneum#2 Klebsiella pneumoniae sp pneum 12/09/17 Unknown Urine Culture - Preliminary Urine Catheter - Hernandez Culture exhibits no growth. 12/07/17 12:14 Gram Stain - Final Sputum, Expectorated/Coughed Respiratory Culture - Final Meth. resistant Staph. aureus Mixed Chana Laboratory Tests Past 24 Hrs 12/12/17 12/12/17 04:40 04:40 WBC 8.1 RBC 4.55 Hgb 11.7 L Hct 36.5 L MCV 80.2 L MCH 25.7 L MCHC 32.1 RDW 16.1 H RDW Differential 47.3 H Plt Count 206 MPV 10.6 Sodium 135 L Potassium 4.5 Chloride 96 L Carbon Dioxide 34.0 H Anion Gap 5 BUN 17 Creatinine 0.44 L Estim Creat Clear Calc 39.66 Est GFR (MDRD) Af Amer 180 Est GFR (MDRD) Non-Af 149 BUN/Creatinine Ratio 38.7 H Glucose 134 H Calcium 7.9 L POC Glucose 12/12/17 12/11/17 12/11/17 07:00 22:17 17:10 POC Glucose 137 H 132 H 121 H 12/11/17 11:53 POC Glucose 158 H Medical Necessity - Tobacco Use Smoking Status: Never smoker Tobacco Use: Non-smoker Assessment/Plan This is a 72 years old female patient admitted because of worsening shortness of breath, low-grade fever and congestion and she was found to have acute on chronic hypoxic and hypercapnic respiratory failure secondary to exacerbation of COPD/bronchiectasis and also found to have metabolic encephalopathy and A. fib with RVR. #1 acute on chronic hypoxic and hypercapnic respiratory failure: Status post extubation, remained on oxygen by nasal cannula and she uses BiPAP for a few hours last night. This morning, pulse ox is 96% on 2 L. Heart rate is down to around 100, blood pressure stable. She is afebrile. She is on IV antibiotics, bronchodilators and IV steroids. Plan: Transfer to PCU. #2 acute COPD/bronchiectasis exacerbation: She is on IV steroids, IV Zosyn and cefepime as well as bronchodilators. Sputum culture revealed MRSA and Klebsiella pneumonia. Blood culture showed no growth in 48 hours. Nasal swab for influenza a and B were negative. She was transitioned to oral prednisone today. Plan as above. #3 A. fib with RVR: Heart rate is down to around 100, remained in A. fib. She is on Coreg, Cardizem and Eliquis. #4 metabolic encephalopathy: Secondary to acute on chronic hypoxic and hypercarbic respiratory failure. Patient remained alert and oriented ?3. #5 hyponatremia/hyperkalemia: Potassium is down to normal, sodium is back to 135 today. #6 history of Takotsubo cardiomyopathy: Most recent 2D echocardiogram was from August, and revealed ejection fraction of 40% and it was improved. At this time, no evidence of acute CHF. #7 hypothyroidism: Continue levothyroxine. #8 chronic atrial fibrillation: Plan as above. #9 DVT prophylaxis: Continue Eliquis. This note was generated with [employer] software. It may contain incorrect words, spelling, and punctuation that were not noted in checking the note before signing. Code Visit Inpatient E&M: 23611 Subs Hosp L2
[2017-12-12] MEDS: Ferrous Gluconate 325 MG Tablet PO ×2 (09:39→17:53)
[2017-12-12] MEDS: Calcium Carb/Vitamin D 1 TABLET Tablet PO ×2 (09:39→17:54)
[2017-12-12] MEDS: Sertraline 50 MG Tablet PO (09:39)
[2017-12-12] MEDS: Multivitamins,Ther W-Minerals Tablet 1 TABLET PO (09:39)
[2017-12-12] MEDS: Magnesium Oxide 400 MG Tablet PO ×2 (09:39→17:53)
[2017-12-12] MEDS: Senna Tablet 1 TABLET PO ×2 (09:39→23:01)
[2017-12-12] MEDS: Fluticasone 0.05% 1 SPRAY NASAL.SRY 2 SPRAY NASAL (09:41)
[2017-12-12] MEDS: APIXABAN 2.5 MG TABLET PO ×2 (09:41→23:00)
[2017-12-12] MEDS: Carvedilol 6.25 MG Tablet PO ×2 (09:41→23:01)
[2017-12-12] MEDS: dilTIAZem CD 120 MG Capsule PO ×2 (09:41→23:03)
[2017-12-12] MEDS: Famotidine 20 MG Tablet PO (09:42)
[2017-12-12] MEDS: Cefadroxil 500 MG CAPSULE 1000 MG PO ×2 (10:05→23:00)
--- NOTE | 2017-12-12 10:32 | CASEMGMT ---
SW spoke w/physician, pt is active w/palliative care. Pt has been transferred to PCU, SW or CM will follow up w/pt regarding discharge plan. RUPERT Coker, RESIDENTIAL TREATMENT STAFF
[2017-12-12] MEDS: 0.45% Normal Saline 1,000 ML 125 ML IV (10:58)
[2017-12-12] MEDS: Ondansetron 4 MG/2 ML Vial IV (11:33)
[2017-12-12] MEDS: predniSONE 20 MG Tablet 40 MG PO (11:37)
[2017-12-12 12:05] LABS: Bedside Glucose 223 mg/dL (70-110)
[2017-12-12 16:51] LABS: Bedside Glucose 172 mg/dL (70-110)
[2017-12-12 23:16] LABS: Bedside Glucose 209 mg/dL (70-110)
[2017-12-13] VITALS (16 sets, daily range): BP systolic 114–137; BP diastolic 63–89; PULSE 80–111; RESP 12–24; TEMP 35.2–36.8; O2SAT 98–99
[2017-12-13] MEDS: clonazePAM 0.5 MG Tablet PO ×2 (02:42→21:14)
[2017-12-13] MEDS: Levothyroxine 88 MCG Tablet PO (06:30)
[2017-12-13] MEDS: NYSTATIN 500,000 UNIT/5 ML UDC 500000 UNIT PO ×3 (06:30→21:14)
--- NOTE | 2017-12-13 06:38 | NURSING ---
Patient dean removed at 0604 - 10cc drained from balloon - 350 in bag - accounted for. PT tolerated removal well - and voided at this time.
[2017-12-13] MEDS: Ipratropium/Albuterol Sulfate 3 ML AMPUL.NEB INHALATION ×4 (06:52→19:59)
[2017-12-13 07:11] LABS: Bedside Glucose 102 mg/dL (70-110)
--- NOTE | 2017-12-13 08:36 | PCM.PN.INT ---
Subjective: Patient transferred out of the intensive care unit yesterday. Patient reports subjective improvement in overall condition. Patient is having good production associated with Acapella use. No fevers been noted overnight. Patient denies any hemoptysis. General: Alert, Oriented x3, Cooperative, No apparent distress, - - Appears older than stated age. Speaking in full sentences. HEENT: Atraumatic, PERRLA, EOMI, Normocephalic, - - No scleral icterus or injection noted. Oral: Moist Mucosa, No Gingival or Mucosal Lesions/ Ulcerations, - - Retrognathia noted Neck: Supple, No Nodes, Trachea Midline, JVD, Right Lungs: No wheeze, No rales, Diminished, Rhonchi Cardiovascular: Normal S1, Normal S2, No murmurs, No rub noted, No Gallop, Tachycardic Abdomen: Bowel Sounds Present, Soft, Non Tender, Non-Distended Extremities: No cyanosis, No edema, Capillary Refill Less than 3 Seconds, Clubbing Skin: - - No significant change compared to previous Musculoskeletal: No Tenderness to Palpation of Joints or Extremities, Arthritic Changes, Cachexia, Muscle Wasting Lymphatic: No Cervical, Supraclavicular, or Inguinal Adenopathy Neurological: Cranial nerves II-XII grossly intact, Neuro grossly intact, Motor Exam 5/5 strength throughout Psych/Mental Status: Alert and oriented to time, place, person, mood and affect Vital Signs Temp Pulse Resp BP Pulse Ox 36.8 C 100 16 137/89 H 99 12/13/17 03:45 12/13/17 07:33 12/13/17 06:52 12/13/17 03:45 12/13/17 06:52 Oxygen Flow Rate (L/min) 3 Oxygen Delivery Method Nasal Cannula Weight: 51.7 kg Body Mass Index (BMI) 16.1 Intake and Output for Last 24 Hours 12/11/17 12/12/17 12/13/17 23:59 23:59 23:59 Intake Total 4155.2 / 4155.2 2129 / 2129 755 / 755 Output Total 2687 / 2687 742 / 742 650 / 650 Balance 1468.2 / 1468.2 1387 / 1387 105 / 105 Labs (Last 48 Hours) 12/11/17 12/11/17 12/11/17 11:53 17:10 22:17 WBC RBC Hgb Hct MCV MCH MCHC RDW RDW Differential Plt Count MPV Sodium Potassium Chloride Carbon Dioxide Anion Gap BUN Creatinine Estim Creat Clear Calc Est GFR (MDRD) Af Amer Est GFR (MDRD) Non-Af BUN/Creatinine Ratio Glucose Calcium POC Glucose 158 H 121 H 132 H 12/12/17 12/12/17 12/12/17 04:40 04:40 07:00 WBC 8.1 RBC 4.55 Hgb 11.7 L Hct 36.5 L MCV 80.2 L MCH 25.7 L MCHC 32.1 RDW 16.1 H RDW Differential 47.3 H Plt Count 206 MPV 10.6 Sodium 135 L Potassium 4.5 Chloride 96 L Carbon Dioxide 34.0 H Anion Gap 5 BUN 17 Creatinine 0.44 L Estim Creat Clear Calc 39.66 Est GFR (MDRD) Af Amer 180 Est GFR (MDRD) Non-Af 149 BUN/Creatinine Ratio 38.7 H Glucose 134 H Calcium 7.9 L POC Glucose 137 H 12/12/17 12/12/17 12/12/17 11:36 16:21 22:41 WBC RBC Hgb Hct MCV MCH MCHC RDW RDW Differential Plt Count MPV Sodium Potassium Chloride Carbon Dioxide Anion Gap BUN Creatinine Estim Creat Clear Calc Est GFR (MDRD) Af Amer Est GFR (MDRD) Non-Af BUN/Creatinine Ratio Glucose Calcium POC Glucose 223 H 172 H 209 H 12/13/17 06:42 WBC RBC Hgb Hct MCV MCH MCHC RDW RDW Differential Plt Count MPV Sodium Potassium Chloride Carbon Dioxide Anion Gap BUN Creatinine Estim Creat Clear Calc Est GFR (MDRD) Af Amer Est GFR (MDRD) Non-Af BUN/Creatinine Ratio Glucose Calcium POC Glucose 102 Microbiology 12/09/17 Unknown Urine Catheter - Hernandez Urine Culture - Final Culture exhibits no growth. 12/09/17 14:30 Sputum, Induced/Lukens Gram Stain - Final 12/09/17 14:30 Sputum, Induced/Lukens Respiratory Culture - Final Klebsiella pneumoniae sp pneum#2 Klebsiella pneumoniae sp pneum Medical Necessity - Tobacco Use Smoking Status: Never smoker Tobacco Use: Non-smoker Assessment/Plan RECOMMENDATIONS: 1. Wean oxygen as tolerated 2. Continue beta-cirilo, Cardizem and Eliquis. 3. Okay to reinitiate methadone and benzodiazepine and titrate up as symptoms require 4. Continue aggressive bronchopulmonary hygiene with PEP 5. Wean prednisone over 12 days, continue 10 mg indefinitely 6. Continue with antibiotics completed 10 day course 7. Increase activity as tolerated IMPRESSIONS: 1. Acute on chronic hypoxemic and hypercarbic respiratory failure secondary to COPD/bronchiectasis with exacerbation Patient appears to be improving from a respiratory perspective. Continue to wean oxygen as tolerated. 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 Patient is on appropriate antibiotics at this time. Patient completed 7 days of vancomycin. Likely okay to complete 10 days of antibiotics for Klebsiella. Continue with aggressive pulmonary toileting with Acapella and vest therapy. Aggressive nutritional support. Walking oximetry prior to discharge. 2. 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 Patient is on benzodiazepines and methadone at baseline secondary to uncontrolled symptoms despite maximal medical therapy. This can likely be reinitiated in a stepwise fashion with repeat titration up. Continue to keep saturations in the lower 90s to avoid CO2 retention. Patient would likely benefit from BiPAP with all sleep for now. 3. History of obstructive sleep apnea Likely needs transition to BiPAP therapy given baseline respiratory issues. This can be completed on discharge. 4. 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 Likely okay to continue baseline home medications. Code Visit Inpatient E&M: 70342 Subs Hosp L2
[2017-12-13] MEDS: Ferrous Gluconate 325 MG Tablet PO ×2 (10:00→16:28)
[2017-12-13] MEDS: Calcium Carb/Vitamin D 1 TABLET Tablet PO ×2 (10:00→16:29)
[2017-12-13] MEDS: Carvedilol 6.25 MG Tablet PO ×2 (10:01→21:14)
[2017-12-13] MEDS: Magnesium Oxide 400 MG Tablet PO ×2 (10:01→16:28)
[2017-12-13] MEDS: Sertraline 50 MG Tablet PO (10:01)
[2017-12-13] MEDS: Cefadroxil 500 MG CAPSULE 1000 MG PO ×2 (10:01→21:14)
[2017-12-13] MEDS: predniSONE 20 MG Tablet 40 MG PO (10:01)
[2017-12-13] MEDS: Senna Tablet 1 TABLET PO (10:02)
[2017-12-13] MEDS: Famotidine 20 MG Tablet PO (10:02)
[2017-12-13] MEDS: dilTIAZem CD 120 MG Capsule PO ×2 (10:02→21:15)
[2017-12-13] MEDS: APIXABAN 2.5 MG TABLET PO ×2 (10:02→21:15)
[2017-12-13] MEDS: Multivitamins,Ther W-Minerals Tablet 1 TABLET PO (10:10)
[2017-12-13] MEDS: Fluticasone 0.05% 1 SPRAY NASAL.SRY 2 SPRAY NASAL (10:10)
--- NOTE | 2017-12-13 10:18 | PN_ITS ---
Subjective: Patient is a 72-year-old female with a past medical history of chronic respiratory failure with hypoxemia, depression, NEPTALI, right upper lobe lung resection, bronchiectasis, atrial fibrillation, NEPTALI, pulmonary hypertension and Takotsubo's cardiomyopathy who was admitted to [facility] on 12/10/17 with acute on chronic respiratory failure with hypoxemia and hypercapnia. She was intubated on 12/09 and extubated on 12/11. She was transferred to PCU on 12/12. Sputum grew MRSA resistant to Clindamycin but, sensitive to tetracycline. Sputum also grew Klebsiella Pneumoniae. Treated initially with Vancomycin (she is known to be colonized with MRSA) which was discontinued on 12/12/17 and then transitioned to Duricef to treat Klebsiella. She states she is feeling better. Still having palpitations and racing heart with exertion. She has been followed in the hospital by PT and they are recommending home at [place]. Her Robbi is able to help her at home. She denies any painful mouth sores and also denies diarrhea. She is afebrile now with stable vital signs. BS's are almost all less than 200. Denies CP, occasional cough but, not bringing anything up. - Physical Exam General: Alert, Oriented x3, Cooperative, No apparent distress HEENT: Atraumatic, PERRLA, EOMI Oral: Moist Mucosa Neck: Supple, No Nodes, Trachea Midline Lungs: Clear to auscultation, No wheeze, Diminished - on the right side throughout, - - Not tachypneic ans has no conversational dyspnea Cardiovascular: Normal S1, Normal S2, No murmurs, Irregular Rate, No rub noted, No Gallop, - - telemetry shows AF with periods of RVR, conrad when she is awake and exerting herself. occasional PVC and 1 couplet. Abdomen: Bowel Sounds Present, Soft, Non Tender, Non-Distended Extremities: No cyanosis, No edema Skin: No rashes, No breakdown Musculoskeletal: Muscle Wasting Neurological: Cranial nerves II-XII grossly intact, Neuro grossly intact Psych/Mental Status: Normal Affect, Appropriate Vital Signs Temp Pulse Resp BP Pulse Ox 95.3 F L 82 24 H 129/63 H 99 12/13/17 09:00 12/13/17 09:00 12/13/17 09:00 12/13/17 09:00 12/13/17 09:00 Oxygen Flow Rate (L/min) 3 Oxygen Delivery Method Nasal Cannula Weight: 113 lb 15.664 oz Body Mass Index (BMI) 16.1 Intake and Output for Last 24 Hours 12/11/17 12/12/17 12/13/17 23:59 23:59 23:59 Intake Total 4155.2 / 4155.2 2129 / 2129 755 / 755 Output Total 2687 / 2687 742 / 742 650 / 650 Balance 1468.2 / 1468.2 1387 / 1387 105 / 105 Microbiology Past 72 Hours 12/09/17 Unknown Urine Culture - Final Urine Catheter - Hernandez Culture exhibits no growth. 12/09/17 14:30 Gram Stain - Final Sputum, Induced/Lukens Respiratory Culture - Final Klebsiella pneumoniae sp pneum#2 Klebsiella pneumoniae sp pneum POC Glucose 12/13/17 12/12/17 12/12/17 06:42 22:41 16:21 POC Glucose 102 209 H 172 H 12/12/17 11:36 POC Glucose 223 H Medical Necessity - Tobacco Use Smoking Status: Never smoker Tobacco Use: Non-smoker Assessment/Plan Impressions 1. acute on chronic respiratory failure with hypoxemia and hypercapnia 2. Acute exacerbation COPD/Bronchiectasis due to Klebsiella Pneumoniae. Known to be colonized with MRSA in the past. Treated with 7 days of Vancomycin and transitioned to Duricef for Klebsiella pneumoniae. 3. CAF with RVR - conrad when she is awake and exerting herself. BP is good, will increase the Cardizem to 180mg BID 4. Metabolic encephalopathy -due to acute on chronic respiratory failure with hypoxemia and hypercapnia 5. 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 History of Takotsubo's cardiomyopathy 7. Hypothyroidism 8. Electrolyte imbalance with hyponatremia/hyperkalemia-resolved 9. Severe malnutrition 10. NEPTALI Increase the Cardizem to 180 mg Q AM and continue 120 mg at HS Continue PT and OT Possible Dc in the next 24-48 hours Recheck lab in the AM
[2017-12-13 11:45] LABS: Bedside Glucose 139 mg/dL (70-110)
[2017-12-13] MEDS: Magnesium Hydroxide 30 ML UDC PO (15:43)
[2017-12-13] MEDS: Mupirocin Ointment 22gm Tube 1 APPLIC NASAL (21:14)
[2017-12-14] VITALS (12 sets, daily range): BP systolic 128–158; BP diastolic 67–89; PULSE 76–108; RESP 12–20; TEMP 36.6–37; O2SAT 88–99
[2017-12-14] MEDS: NYSTATIN 500,000 UNIT/5 ML UDC 500000 UNIT PO ×2 (05:44→14:35)
[2017-12-14] MEDS: Levothyroxine 88 MCG Tablet PO (05:45)
[2017-12-14 06:28] LABS: Hematocrit 39.4 % (37-47); Hemoglobin 12.3 g/dl (12.0-15.0); Mean Corp Hgb Conc 31.2 g/gl (32-36); Mean Corpuscular Hgb 25.4 pg (27.0-32.0); Mean Corpuscular Volume 81.4 fL (81-99); Mean Platelet Vol. 10.3 fl (6.2-12.0); Platelet Count 175 K/mm3 (150-450); RBC Distribution Width CV 16.2 % (11.6-14.6); Red Blood Count 4.84 M/mm3 (4.2-5.4); White Blood Count 9.2 K/mm3 (4.4-11.0)
[2017-12-14 06:33] LABS: ALB/GLOB Ratio 0.6 RATIO (0.9-2.4); AST(SGOT) 49 U/L (15-37); Alanine Aminotransfer ALT/SGPT 58 U/L (13-56); Albumin, Serum 2.2 g/dL (3.2-5.0); Alkaline Phosphatase 221 U/L (45-117); Anion Gap 5 (5-15); BUN 15 mg/dL (7-18); BUN/Creat Ratio 42.6 RATIO (10-20); Calcium,Total 7.9 mg/dL (8.5-10.1); Chloride 99 mmol/L (98-107); Creatinine, Serum 0.35 mg/dL (0.55-1.02); EST Glomerular Filtration Rate 192 mL/min (>60); Est Glom Filt Rate - Afr Amer 233 mL/min (>60); Globulin 3.8 g/dL (2.2-4.2); Glucose 86 mg/dL (74-106); Magnesium 2.3 mg/dL (1.6-2.6); Phosphorus 2.1 mg/dL (2.5-4.9); Potassium 4.4 mmol/L (3.5-5.1); Sodium Level 137 mmol/L (136-145)
[2017-12-14 06:50] LABS: Scan Indicated on CBC? Y/N NO
[2017-12-14] MEDS: Ipratropium/Albuterol Sulfate 3 ML AMPUL.NEB INHALATION ×3 (06:53→14:29)
--- NOTE | 2017-12-14 07:20 | PCM.PROGNOTE ---
Subjective: Patient did well overnight. No acute issues were reported. Patient states her cough is improved compared to previous. Patient has been able to ambulate to the bathroom with assistance. Patient states she feels strong enough to go home. No hemoptysis is been reported. - Physical Exam General: Alert, Oriented x3, Cooperative, No apparent distress, - - Appears older than stated age. Speaking in full sentences. HEENT: Atraumatic, PERRLA, EOMI, Normocephalic, - - No scleral icterus or injection noted. Oral: Moist Mucosa, No Gingival or Mucosal Lesions/ Ulcerations Neck: Supple, No Nodes, Trachea Midline, JVD, Right Lungs: No rhonchi, No wheeze, No rales, Diminished - Right apex, - - Symmetric expansion. Cardiovascular: Normal S1, Normal S2, Irregular Rate, Murmur, No rub noted, No Gallop Abdomen: Bowel Sounds Present, Soft, Non Tender, Non-Distended Extremities: No cyanosis, No edema, Capillary Refill Less than 3 Seconds, Clubbing Skin: - - No significant change compared to previous Musculoskeletal: No Tenderness to Palpation of Joints or Extremities, Cachexia, Muscle Wasting Lymphatic: No Cervical, Supraclavicular, or Inguinal Adenopathy Neurological: Cranial nerves II-XII grossly intact, Neuro grossly intact, Motor Exam 5/5 strength throughout Psych/Mental Status: Alert and oriented to time, place, person, mood and affect Vital Signs Temp Pulse Resp BP Pulse Ox 37.0 C 90 16 143/89 H 99 12/14/17 02:42 12/14/17 06:53 12/14/17 06:53 12/14/17 02:42 12/14/17 06:53 Oxygen Flow Rate (L/min) 2 Oxygen Delivery Method Nasal Cannula Weight: 53 kg Body Mass Index (BMI) 16.1 Intake and Output for Last 24 Hours 12/12/17 12/13/17 12/14/17 23:59 23:59 23:59 Intake Total 2129 / 2129 1915 / 1915 300 / 300 Output Total 742 / 742 650 / 650 Balance 1387 / 1387 1265 / 1265 300 / 300 Microbiology Past 72 Hours 12/09/17 Unknown Urine Culture - Final Urine Catheter - Hernandez Culture exhibits no growth. 12/09/17 14:30 Gram Stain - Final Sputum, Induced/Lukens Respiratory Culture - Final Klebsiella pneumoniae sp pneum#2 Klebsiella pneumoniae sp pneum Laboratory Tests Past 24 Hrs 12/14/17 12/14/17 05:40 05:40 WBC 9.2 RBC 4.84 Hgb 12.3 Hct 39.4 MCV 81.4 MCH 25.4 L MCHC 31.2 L RDW 16.2 H RDW Differential 48.0 H Plt Count 175 MPV 10.3 Sodium 137 Potassium 4.4 Chloride 99 Carbon Dioxide 33.0 H Anion Gap 5 BUN 15 Creatinine 0.35 L Estim Creat Clear Calc 41.30 Est GFR (MDRD) Af Amer 233 Est GFR (MDRD) Non-Af 192 BUN/Creatinine Ratio 42.6 H Glucose 86 Calcium 7.9 L Phosphorus 2.1 L Magnesium 2.3 Total Bilirubin 0.40 AST 49 H ALT 58 H Alkaline Phosphatase 221 H Total Protein 6.0 L Albumin 2.2 L Globulin 3.8 Albumin/Globulin Ratio 0.6 L POC Glucose 12/13/17 11:27 POC Glucose 139 H Medical Necessity - Tobacco Use Smoking Status: Never smoker Tobacco Use: Non-smoker Assessment/Plan RECOMMENDATIONS: 1. Wean oxygen as tolerated 2. Continue beta-cirilo, Cardizem and Eliquis. 3. Continue methadone and benzodiazepine and titrate up as symptoms require as an outpatient 4. Continue aggressive bronchopulmonary hygiene with PEP 5. Wean prednisone over 12 days, continue 10 mg indefinitely 6. Continue with antibiotics completed 10 day course 7. Walking oximetry prior to discharge IMPRESSIONS: 1. Acute on chronic hypoxemic and hypercarbic respiratory failure secondary to COPD/bronchiectasis with exacerbation Patient appears to be improving from a respiratory perspective. Continue to wean oxygen as tolerated. Patient will need a walking oximetry prior to discharge. 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 Patient is on appropriate antibiotics at this time. Patient completed 7 days of vancomycin. Likely okay to complete 10 days of antibiotics for Klebsiella. Continue with aggressive pulmonary toileting with Acapella and vest therapy. Aggressive nutritional support. Patient can follow-up with nurse practitioner 2 weeks following discharge. 2. Hypercarbic encephalopathy RESOLVED > likely multifactorial. Patient is on benzodiazepines and methadone at baseline secondary to uncontrolled symptoms despite maximal medical therapy. This can likely be reinitiated in a stepwise fashion with repeat titration up. Continue to keep saturations in the lower 90s to avoid CO2 retention. Patient would likely benefit from BiPAP with all sleep for now. 3. History of obstructive sleep apnea Likely needs transition to BiPAP therapy given baseline respiratory issues. This can be completed on discharge. 4. 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 Likely okay to continue baseline home medications. Code Visit Inpatient E&M: 75256 Subs Hosp L2
[2017-12-14] MEDS: Calcium Carb/Vitamin D 1 TABLET Tablet PO (09:28)
[2017-12-14] MEDS: Carvedilol 6.25 MG Tablet PO (09:28)
[2017-12-14] MEDS: predniSONE 20 MG Tablet 40 MG PO (09:28)
[2017-12-14] MEDS: APIXABAN 2.5 MG TABLET PO (09:28)
[2017-12-14] MEDS: dilTIAZem CD 180 MG Capsule PO (09:28)
[2017-12-14] MEDS: Magnesium Oxide 400 MG Tablet PO (09:29)
[2017-12-14] MEDS: Multivitamins,Ther W-Minerals Tablet 1 TABLET PO (09:29)
[2017-12-14] MEDS: Famotidine 20 MG Tablet PO (09:29)
[2017-12-14] MEDS: Senna Tablet 1 TABLET PO (09:29)
[2017-12-14] MEDS: Ferrous Gluconate 325 MG Tablet PO (09:29)
[2017-12-14] MEDS: Cefadroxil 500 MG CAPSULE 1000 MG PO (09:29)
[2017-12-14] MEDS: Sertraline 50 MG Tablet PO (09:29)
[2017-12-14] MEDS: Mupirocin Ointment 22gm Tube 1 APPLIC NASAL (09:30)
[2017-12-14] MEDS: Fluticasone 0.05% 1 SPRAY NASAL.SRY 2 SPRAY NASAL (09:30)
--- NOTE | 2017-12-14 10:24 | CASEMGMT ---
This RN CM to room to f/u with pt regarding discharge planning. Advised pt that therapy recommends further skilled therapy at this time, but pt refuses HHC and outpt therapy at this time. Pt states that her will be able to care for her. Advised pt to ask for CM if any further questions/concerns/needs, voices understanding. Pt voices no further questions/concerns at this time. SStaten STONEY RENEE
[2017-12-14] MEDS: clonazePAM 0.5 MG Tablet PO (11:54)
--- NOTE | 2017-12-14 16:56 | PCM.DC ---
You will use the following diet at home:: Other - 9868-3228 calories daily with 60-70 Grams of protein Your food should be the consistency of: Regular Your liquids should be the consistency of: Regular/Thin Discharge Activity: May not drive while taking narcotic pain medications., - - Avoid exposure to any strong smells such as bleach, cleaning products, strong colognes or perfumes, paint fumes and smoke of any kind. Avoid sudden exposure to cold air because this can cause bronchospasm. You may want to cover your mouth when you go outside in the winter. Avoid exposure to anyone who is sick with a cough or sore throat. Call your doctor if you observe: Fever of 101 or Higher, Shortness of breath, Dizziness, Fainting spells, Chest pain, - - diarrhea more than 3 times a day, painful sores in the mouth, painful swallowing, vafinal discharge or itching Additional Instructions: You have several risk factors for osteoporosis including menopause, malnutrition and frequent use of steroid medications. If you never had a bone density test then you should discuss this with your PCP. Calcium and vitamin D alone do not treat osteoporosis but there are other medications that can increase bone density. The test you want is a DEXA. You should be taking calcium 500 mg plus vitamin D twice a day with meals Pending Tests on Discharge: none Allergies/Adverse Reactions: Allergies sulfamethoxazole [From Bactrim] Allergy (Verified 12/06/17 14:03) Hives PT STATES NOT ALLERGIC tetracycline Allergy (Verified 12/06/17 14:03) Hives trimethoprim [From Bactrim] Allergy (Verified 12/06/17 14:03) Hives verapamil Allergy (Verified 12/06/17 14:03) Unknown itraconazole Adverse Reaction (Verified 12/06/17 14:03) chest tightness w/ upper and loewr extremity weakness warfarin [From Coumadin] Adverse Reaction (Verified 12/06/17 14:03) gi bleed SODIUM PENTATHOL Allergy (Uncoded 12/06/17 14:03) jaundice/hives JAUNDICE Medications to take at Discharge Multivitamin [Daily Multiple Vitamin] 1 ea PO DAILY 08/04/15 Cholecalciferol (Vitamin D3) [Vitamin D3] 2,000 unit PO DAILY 10/30/16 Albuterol Inhaler [Ventolin Hfa] 1 - 2 puff INHALATION Q2H PRN PRN #1 inhaler 11/21/16 Formoterol Fumarate [Perforomist] 20 mcg INHALATION BID 04/18/17 Guaifenesin [Mucinex] 1,200 mg PO BID PRN 04/18/17 Sertraline HCl [Zoloft] 50 mg PO DAILY 04/18/17 albuterol sulfate 2.5 mg/3 mL (0.083 %) solution for nebulization 2.5 mg INHALATION Q4H PRN ml 08/31/17 lorazepam 0.5 mg tablet 0.5 mg PO DAILY PRN PRN tab 08/31/17 Apixaban [Eliquis] 2.5 mg PO BID 09/08/17 Budesonide [Pulmicort] 0.25 mg IH BID 09/08/17 Calcium Carbonate/Vitamin D3 [Calcium 600-Vit D3 400 Caplet] 1 ea PO BID 09/08/17 Carvedilol [Coreg (Beta El)] 6.25 mg PO BID 09/08/17 Ferrous Gluconate 325 mg PO BIDCM 09/08/17 Levothyroxine [Synthroid] 88 mcg PO DAILY@0600 09/08/17 Magnesium Oxide [Mag-Ox 400] 400 mg PO BIDCM 09/08/17 traZODone [Desyrel] 50 mg PO QHS 09/08/17 benzonatate 100 mg capsule 100 mg PO TID PRN #90 cap 10/19/17 fluticasone 50 mcg/actuation nasal spray,suspension 2 spray INTRANASAL DAILY #16 g 11/28/17 nystatin 100,000 unit/mL oral suspension 5 ml PO TID #200 ml 11/28/17 Methadone HCl 5 mg PO BID 12/06/17 Calcium Carb/Vitamin D [Os-Zach 500MG + D] 1 tablet PO BIDCM tablet 12/14/17 Cefadroxil [Duricef] 1,000 mg PO BID #4 cap 12/14/17 Diltiazem CD [Cardizem CD] 120 mg PO QHS #30 cap 12/14/17 Diltiazem CD [Cardizem CD] 180 mg PO DAILY #30 cap 12/14/17 Nystatin 500,000 unit PO TID #150 ml 12/14/17 Prednisone 10 mg PO UD #30 tab 12/14/17 The following prescriptions were given: Diltiazem CD [Cardizem CD] 120 mg PO QHS #30 cap Diltiazem CD [Cardizem CD] 180 mg PO DAILY #30 cap Prednisone 10 mg PO UD #30 tab Cefadroxil [Duricef] 1,000 mg PO BID #4 cap Nystatin 500,000 unit PO TID #150 ml Primary Care Physician: Christo Wilde MD [Primary Care Provider] - Please follow up with your Primary Care Physician in: 7-10 days Please Follow Up With: sAim Angel MD When: 2 weeks with Lauren Miguel in the office Proposed Discharge Date: 12/14/17
--- NOTE | 2017-12-14 17:07 | DCINST_ITS ---
You will use the following diet at home:: Other - 6636-2951 calories daily with 60-70 Grams of protein Your food should be the consistency of: Regular Your liquids should be the consistency of: Regular/Thin Discharge Activity: May not drive while taking narcotic pain medications., - - Avoid exposure to any strong smells such as bleach, cleaning products, strong colognes or perfumes, paint fumes and smoke of any kind. Avoid sudden exposure to cold air because this can cause bronchospasm. You may want to cover your mouth when you go outside in the winter. Avoid exposure to anyone who is sick with a cough or sore throat. Call your doctor if you observe: Fever of 101 or Higher, Shortness of breath, Dizziness, Fainting spells, Chest pain, - - diarrhea more than 3 times a day, painful sores in the mouth, painful swallowing, vafinal discharge or itching Additional Instructions: You have several risk factors for osteoporosis including menopause, malnutrition and frequent use of steroid medications. If you never had a bone density test then you should discuss this with your PCP. Calcium and vitamin D alone do not treat osteoporosis but there are other medications that can increase bone density. The test you want is a DEXA. You should be taking calcium 500 mg plus vitamin D twice a day with meals Pending Tests on Discharge: none Allergies/Adverse Reactions: Allergies sulfamethoxazole [From Bactrim] Allergy (Verified 12/06/17 14:03) Hives PT STATES NOT ALLERGIC tetracycline Allergy (Verified 12/06/17 14:03) Hives trimethoprim [From Bactrim] Allergy (Verified 12/06/17 14:03) Hives verapamil Allergy (Verified 12/06/17 14:03) Unknown itraconazole Adverse Reaction (Verified 12/06/17 14:03) chest tightness w/ upper and loewr extremity weakness warfarin [From Coumadin] Adverse Reaction (Verified 12/06/17 14:03) gi bleed SODIUM PENTATHOL Allergy (Uncoded 12/06/17 14:03) jaundice/hives JAUNDICE Medications to take at Discharge Multivitamin [Daily Multiple Vitamin] 1 ea PO DAILY 08/04/15 Cholecalciferol (Vitamin D3) [Vitamin D3] 2,000 unit PO DAILY 10/30/16 Albuterol Inhaler [Ventolin Hfa] 1 - 2 puff INHALATION Q2H PRN PRN #1 inhaler Formoterol Fumarate [Perforomist] 20 mcg INHALATION BID 04/18/17 Guaifenesin [Mucinex] 1,200 mg PO BID PRN 04/18/17 Sertraline HCl [Zoloft] 50 mg PO DAILY 04/18/17 albuterol sulfate 2.5 mg/3 mL (0.083 %) solution for nebulization 2.5 mg INHALATION Q4H PRN ml 08/31/17 lorazepam 0.5 mg tablet 0.5 mg PO DAILY PRN PRN tab 08/31/17 Apixaban [Eliquis] 2.5 mg PO BID 09/08/17 Budesonide [Pulmicort] 0.25 mg IH BID 09/08/17 Calcium Carbonate/Vitamin D3 [Calcium 600-Vit D3 400 Caplet] 1 ea PO BID Carvedilol [Coreg (Beta El)] 6.25 mg PO BID 09/08/17 Ferrous Gluconate 325 mg PO BIDCM 09/08/17 Levothyroxine [Synthroid] 88 mcg PO DAILY@0600 09/08/17 Magnesium Oxide [Mag-Ox 400] 400 mg PO BIDCM 09/08/17 traZODone [Desyrel] 50 mg PO QHS 09/08/17 benzonatate 100 mg capsule 100 mg PO TID PRN #90 cap 10/19/17 fluticasone 50 mcg/actuation nasal spray,suspension 2 spray INTRANASAL DAILY # 16 g 11/28/17 nystatin 100,000 unit/mL oral suspension 5 ml PO TID #200 ml 11/28/17 Methadone HCl 5 mg PO BID 12/06/17 Calcium Carb/Vitamin D [Os-Zach 500MG + D] 1 tablet PO BIDCM tablet 12/14/17 Cefadroxil [Duricef] 1,000 mg PO BID #4 cap 12/14/17 Diltiazem CD [Cardizem CD] 120 mg PO QHS #30 cap 12/14/17 Diltiazem CD [Cardizem CD] 180 mg PO DAILY #30 cap 12/14/17 Nystatin 500,000 unit PO TID #150 ml 12/14/17 Prednisone 10 mg PO UD #30 tab 12/14/17 The following prescriptions were given: Diltiazem CD [Cardizem CD] 120 mg PO QHS #30 cap Diltiazem CD [Cardizem CD] 180 mg PO DAILY #30 cap Prednisone 10 mg PO UD #30 tab Cefadroxil [Duricef] 1,000 mg PO BID #4 cap Nystatin 500,000 unit PO TID #150 ml Primary Care Physician: Christo Wilde MD [Primary Care Provider] - Please follow up with your Primary Care Physician in: 7-10 days Please Follow Up With: Asim Angel MD When: 2 weeks with Lauren Miguel in the office Proposed Discharge Date: 12/14/17
--- NOTE | 2017-12-14 17:15 | PCM.DC.SUM ---
Discharge Date and Diagnosis - Problem List Patient Problems: Active and Suspected Problems (Last Updated 12/14/17 @ 17:06 by Guillermina Vincent DO) Thrush, oral (Acute) Community acquired pneumonia due to Klebsiella pneumoniae (Acute) Hyperkalemia (Acute) Hyponatremia (Acute) Metabolic encephalopathy (Acute) Atrial fibrillation with RVR (Acute) Acute exacerbation of chronic obstructive pulmonary disease (COPD) (Acute) Acute and chronic respiratory failure with hypoxia (Acute) Date of Admission: 12/06/17 Date of Discharge: 12/14/17 - Primary Discharge Diagnosis Active and Suspected Problems (Last Updated 12/14/17 @ 17:06 by Guillermina Vincent DO) Community acquired pneumonia due to Klebsiella pneumoniae (Acute) Metabolic encephalopathy (Acute) due to hypercapnea Atrial fibrillation with RVR (Acute) Acute exacerbation of chronic obstructive pulmonary disease (COPD) (Acute) Acute on chronic respiratory failure with hypoxia and hypercapnea (Acute) Thrush, oral (Acute) Hyperkalemia (Acute) Hyponatremia (Acute) - Secondary Discharge Diagnosis Chronic Problems (Last Updated 12/14/17 @ 17:06 by Guillermina Vincent DO) Severe malnutrition (Chronic) History of lobectomy of lung (Chronic) RUL 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 Electronically Signed: Crow Bustamante DO at 15:32 EDT Tel [phone], Service support , Chest X-Ray 12/09/17 09:45 IMPRESSION: Mild increase opacification remaining right mid/basal lung with decreased volume suggesting atelectasis but cannot exclude superimposed pneumonia. Clinical correlation recommended. Otherwise, no change extensive postsurgical right chest radiographic findings as described which appear chronic. Severe left coronary artery calcifications. Electronically Signed: Mike Ricardo at 13:14 EDT Tel , Service support , Chest X-Ray 12/09/17 11:54 IMPRESSION: Well-positioned endotracheal tube impression. Normal position extent visualized feeding tube. No change extensive postsurgical chest radiographic findings which appear chronic. Electronically Signed: Mike Ricardo, at 13:00 EDT Tel , Service support , Laboratory Results - last 24 hr 12/14/17 12/14/17 05:40 05:40 WBC 9.2 RBC 4.84 Hgb 12.3 Hct 39.4 MCV 81.4 MCH 25.4 L MCHC 31.2 L RDW 16.2 H RDW Differential 48.0 H Plt Count 175 MPV 10.3 Sodium 137 Potassium 4.4 Chloride 99 Carbon Dioxide 33.0 H Anion Gap 5 BUN 15 Creatinine 0.35 L Estim Creat Clear Calc 41.30 Est GFR (MDRD) Af Amer 233 Est GFR (MDRD) Non-Af 192 BUN/Creatinine Ratio 42.6 H Glucose 86 Calcium 7.9 L Phosphorus 2.1 L Magnesium 2.3 Total Bilirubin 0.40 AST 49 H ALT 58 H Alkaline Phosphatase 221 H Total Protein 6.0 L Albumin 2.2 L Globulin 3.8 Albumin/Globulin Ratio 0.[address] Asim Angel and Dr. Lev Campbell-pulmonary medicine/process control programmer Operations: None Procedures: Intubation Summary of Care Provided: Patient is a 72-year-old female with a past medical history of chronic respiratory failure with hypoxemia, depression, NEPTALI, right upper lobe lung resection, bronchiectasis, atrial fibrillation, pulmonary hypertension and Takotsubo's cardiomyopathy who was admitted to PCU on 12/10/17 with acute on chronic respiratory failure with hypoxemia and hypercapnia. CXR showed possible RLL PNA and she was started on Zosyn and Vancomycin. IV steroids and ATC aerosolized bronchodilators were initiated and Dr. Campbell was consulted to participate in management. Unfortunately she continued to decline and was transferred to ICU on 12/09/17. CXR showed increased infiltrate in the R base. An ABG showed a pH of 7.26 with PCO2 of 92 and PO2 of 53. An ABG was obtained following a BiPAP trial and was essentially unchanged. She was intubated on 12/09 and extubated on 12/11. She was transferred to PCU on 12/12. Sputum grew MRSA resistant to Clindamycin but, she is known to be colonized with MRSA and this was not thought to represent acute infection. Sputum also grew Klebsiella Pneumoniae, which was new for her. She was treated initially with Vancomycin and Zosyn. Vancomycin was discontinued on 12/12/17 and she was transitioned to Duricef to treat Klebsiella. Solu-medrol was weaned and she was started on a prednisone taper. On 12/14/2017 she was afebrile with stable vital signs. Pulse ox was 97% on 2 L NC. She was discharged home with Cefdinir to complete 10 days of antibiotics and also discharged on a prednisone taper. She will follow up in the Pulmonary office in 2 weeks with Lauren Miguel NP. She was followed by the access rep in the hospital for severe malnutrition and was provided with nutritional supplements and education regarding supplements she can continue post DC. She has multiple RF's for osteoporosis and was discharged on Calcium + vitamin D. I recommended she discuss obtaining a DEXA scan with her PCP and if her T score is < 2.0 starting treatment for osteoporosis. This note was generated with [employer] dictation software. It may contain incorrect words, spelling, and punctuation that were not noted in checking the note before signing. Discharge Activity: May not drive while taking narcotic pain medications., - - Avoid exposure to any strong smells such as bleach, cleaning products, strong colognes or perfumes, paint fumes and smoke of any kind. Avoid sudden exposure to cold air because this can cause bronchospasm. You may want to cover your mouth when you go outside in the winter. Avoid exposure to anyone who is sick with a cough or sore throat. Call your doctor if you observe: Fever of 101 or Higher, Shortness of breath, Dizziness, Fainting spells, Chest pain, - - diarrhea more than 3 times a day, painful sores in the mouth, painful swallowing, vafinal discharge or itching Home Medications: Medications to take at Discharge Multivitamin [Daily Multiple Vitamin] 1 ea PO DAILY 08/04/15 Cholecalciferol (Vitamin D3) [Vitamin D3] 2,000 unit PO DAILY 10/30/16 Albuterol Inhaler [Ventolin Hfa] 1 - 2 puff INHALATION Q2H PRN PRN #1 inhaler 11/21/16 Formoterol Fumarate [Perforomist] 20 mcg INHALATION BID 04/18/17 Guaifenesin [Mucinex] 1,200 mg PO BID PRN 04/18/17 Sertraline HCl [Zoloft] 50 mg PO DAILY 04/18/17 albuterol sulfate 2.5 mg/3 mL (0.083 %) solution for nebulization 2.5 mg INHALATION Q4H PRN ml 08/31/17 lorazepam 0.5 mg tablet 0.5 mg PO DAILY PRN PRN tab 08/31/17 Apixaban [Eliquis] 2.5 mg PO BID 09/08/17 Budesonide [Pulmicort] 0.25 mg IH BID 09/08/17 Calcium Carbonate/Vitamin D3 [Calcium 600-Vit D3 400 Caplet] 1 ea PO BID 09/08/17 Carvedilol [Coreg (Beta El)] 6.25 mg PO BID 09/08/17 Ferrous Gluconate 325 mg PO BIDCM 09/08/17 Levothyroxine [Synthroid] 88 mcg PO DAILY@0600 09/08/17 Magnesium Oxide [Mag-Ox 400] 400 mg PO BIDCM 09/08/17 traZODone [Desyrel] 50 mg PO QHS 09/08/17 benzonatate 100 mg capsule 100 mg PO TID PRN #90 cap 10/19/17 fluticasone 50 mcg/actuation nasal spray,suspension 2 spray INTRANASAL DAILY #16 g 11/28/17 nystatin 100,000 unit/mL oral suspension 5 ml PO TID #200 ml 11/28/17 Methadone HCl 5 mg PO BID 12/06/17 Calcium Carb/Vitamin D [Os-Zach 500MG + D] 1 tablet PO BIDCM tablet 12/14/17 Cefadroxil [Duricef] 1,000 mg PO BID #4 cap 12/14/17 Diltiazem CD [Cardizem CD] 120 mg PO QHS #30 cap 12/14/17 Diltiazem CD [Cardizem CD] 180 mg PO DAILY #30 cap 12/14/17 Nystatin 500,000 unit PO TID #150 ml 12/14/17 Prednisone 10 mg PO UD #30 tab 12/14/17 Following Prescrptions Were Given to Patient: Diltiazem CD [Cardizem CD] 120 mg PO QHS #30 cap Diltiazem CD [Cardizem CD] 180 mg PO DAILY #30 cap Prednisone 10 mg PO UD #30 tab Cefadroxil [Duricef] 1,000 mg PO BID #4 cap Nystatin 500,000 unit PO TID #150 ml Primary Care Physician: Christo Wilde MD [Primary Care Provider] - Please follow up with your Primary Care Physician in: 7-10 days Please Follow Up With: Asim Angel MD When: 2 weeks with Lauren Miguel in the office Disposition: Home Minutes spent on discharge:: 35 Patient Condition:: Stable Medical Necessity - Tobacco Use Smoking Status: Never smoker Tobacco Use: Non-smoker Meaningful Use Info Meaningful Use Diagnoses (Choose all that apply): None applicable Code Visit Inpatient E&M: 43705 Disch Hosp
--- NOTE | 2017-12-14 17:18 | DS.PCM_ITS ---
Discharge Date and Diagnosis - Problem List Patient Problems: Active and Suspected Problems (Last Updated 12/14/17 @ 17:06 by Guillermina Vincent DO) Thrush, oral (Acute) Community acquired pneumonia due to Klebsiella pneumoniae (Acute) Hyperkalemia (Acute) Hyponatremia (Acute) Metabolic encephalopathy (Acute) Atrial fibrillation with RVR (Acute) Acute exacerbation of chronic obstructive pulmonary disease (COPD) (Acute) Acute and chronic respiratory failure with hypoxia (Acute) Date of Admission: 12/06/17 Date of Discharge: 12/14/17 - Primary Discharge Diagnosis Active and Suspected Problems (Last Updated 12/14/17 @ 17:06 by Guillermina Vincent DO) Community acquired pneumonia due to Klebsiella pneumoniae (Acute) Metabolic encephalopathy (Acute) due to hypercapnea Atrial fibrillation with RVR (Acute) Acute exacerbation of chronic obstructive pulmonary disease (COPD) (Acute) Acute on chronic respiratory failure with hypoxia and hypercapnea (Acute) Thrush, oral (Acute) Hyperkalemia (Acute) Hyponatremia (Acute) - Secondary Discharge Diagnosis Chronic Problems (Last Updated 12/14/17 @ 17:06 by Guillermina Vincent DO) Severe malnutrition (Chronic) History of lobectomy of lung (Chronic) RUL 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 Electronically Signed: Crow Bustamante DO at 15:32 EDT Tel [phone], Service support , Chest X-Ray 12/09/17 09:45 IMPRESSION: Mild increase opacification remaining right mid/basal lung with decreased volume suggesting atelectasis but cannot exclude superimposed pneumonia. Clinical correlation recommended. Otherwise, no change extensive postsurgical right chest radiographic findings as described which appear chronic. Severe left coronary artery calcifications. Electronically Signed: Mike Ricardo at 13:14 EDT Tel , Service support , Chest X-Ray 12/09/17 11:54 IMPRESSION: Well-positioned endotracheal tube impression. Normal position extent visualized feeding tube. No change extensive postsurgical chest radiographic findings which appear chronic. Electronically Signed: Mike Ricardo, at 13:00 EDT Tel , Service support , Laboratory Results - last 24 hr 12/14/17 12/14/17 05:40 05:40 WBC 9.2 RBC 4.84 Hgb 12.3 Hct 39.4 MCV 81.4 MCH 25.4 L MCHC 31.2 L RDW 16.2 H RDW Differential 48.0 H Plt Count 175 MPV 10.3 Sodium 137 Potassium 4.4 Chloride 99 Carbon Dioxide 33.0 H Anion Gap 5 BUN 15 Creatinine 0.35 L Estim Creat Clear Calc 41.30 Est GFR (MDRD) Af Amer 233 Est GFR (MDRD) Non-Af 192 BUN/Creatinine Ratio 42.6 H Glucose 86 Calcium 7.9 L Phosphorus 2.1 L Magnesium 2.3 Total Bilirubin 0.40 AST 49 H ALT 58 H Alkaline Phosphatase 221 H Total Protein 6.0 L Albumin 2.2 L Globulin 3.8 Albumin/Globulin Ratio 0.[address] Asim Angel and Dr. Lev Campbell-pulmonary medicine/fitness studies teacher Operations: None Procedures: Intubation Summary of Care Provided: Patient is a 72-year-old female with a past medical history of chronic respiratory failure with hypoxemia, depression, NEPTALI, right upper lobe lung resection, bronchiectasis, atrial fibrillation, pulmonary hypertension and Takotsubo's cardiomyopathy who was admitted to PCU on 12/10/17 with acute on chronic respiratory failure with hypoxemia and hypercapnia. CXR showed possible RLL PNA and she was started on Zosyn and Vancomycin. IV steroids and ATC aerosolized bronchodilators were initiated and Dr. Campbell was consulted to participate in management. Unfortunately she continued to decline and was transferred to ICU on 12/09/17. CXR showed increased infiltrate in the R base. An ABG showed a pH of 7.26 with PCO2 of 92 and PO2 of 53. An ABG was obtained following a BiPAP trial and was essentially unchanged. She was intubated on and extubated on 12/11. She was transferred to PCU on 12/12. Sputum grew MRSA resistant to Clindamycin but, she is known to be colonized with MRSA and this was not thought to represent acute infection. Sputum also grew Klebsiella Pneumoniae, which was new for her. She was treated initially with Vancomycin and Zosyn. Vancomycin was discontinued on 12/12/17 and she was transitioned to Duricef to treat Klebsiella. Solu-medrol was weaned and she was started on a prednisone taper. On 12/14/2017 she was afebrile with stable vital signs. Pulse ox was 97% on 2 L NC. She was discharged home with Cefdinir to complete 10 days of antibiotics and also discharged on a prednisone taper. She will follow up in the Pulmonary office in 2 weeks with Lauren Miguel NP. She was followed by the education department chair in the hospital for severe malnutrition and was provided with nutritional supplements and education regarding supplements she can continue post DC. She has multiple RF's for osteoporosis and was discharged on Calcium + vitamin D. I recommended she discuss obtaining a DEXA scan with her PCP and if her T score is < 2.0 starting treatment for osteoporosis. This note was generated with [employer] dictation software. It may contain incorrect words, spelling, and punctuation that were not noted in checking the note before signing. Discharge Activity: May not drive while taking narcotic pain medications., - - Avoid exposure to any strong smells such as bleach, cleaning products, strong colognes or perfumes, paint fumes and smoke of any kind. Avoid sudden exposure to cold air because this can cause bronchospasm. You may want to cover your mouth when you go outside in the winter. Avoid exposure to anyone who is sick with a cough or sore throat. Call your doctor if you observe: Fever of 101 or Higher, Shortness of breath, Dizziness, Fainting spells, Chest pain, - - diarrhea more than 3 times a day, painful sores in the mouth, painful swallowing, vafinal discharge or itching Home Medications: Medications to take at Discharge Multivitamin [Daily Multiple Vitamin] 1 ea PO DAILY 08/04/15 Cholecalciferol (Vitamin D3) [Vitamin D3] 2,000 unit PO DAILY 10/30/16 Albuterol Inhaler [Ventolin Hfa] 1 - 2 puff INHALATION Q2H PRN PRN #1 inhaler Formoterol Fumarate [Perforomist] 20 mcg INHALATION BID 04/18/17 Guaifenesin [Mucinex] 1,200 mg PO BID PRN 04/18/17 Sertraline HCl [Zoloft] 50 mg PO DAILY 04/18/17 albuterol sulfate 2.5 mg/3 mL (0.083 %) solution for nebulization 2.5 mg INHALATION Q4H PRN ml 08/31/17 lorazepam 0.5 mg tablet 0.5 mg PO DAILY PRN PRN tab 08/31/17 Apixaban [Eliquis] 2.5 mg PO BID 09/08/17 Budesonide [Pulmicort] 0.25 mg IH BID 09/08/17 Calcium Carbonate/Vitamin D3 [Calcium 600-Vit D3 400 Caplet] 1 ea PO BID Carvedilol [Coreg (Beta El)] 6.25 mg PO BID 09/08/17 Ferrous Gluconate 325 mg PO BIDCM 09/08/17 Levothyroxine [Synthroid] 88 mcg PO DAILY@0600 09/08/17 Magnesium Oxide [Mag-Ox 400] 400 mg PO BIDCM 09/08/17 traZODone [Desyrel] 50 mg PO QHS 09/08/17 benzonatate 100 mg capsule 100 mg PO TID PRN #90 cap 10/19/17 fluticasone 50 mcg/actuation nasal spray,suspension 2 spray INTRANASAL DAILY # 16 g 11/28/17 nystatin 100,000 unit/mL oral suspension 5 ml PO TID #200 ml 11/28/17 Methadone HCl 5 mg PO BID 12/06/17 Calcium Carb/Vitamin D [Os-Zach 500MG + D] 1 tablet PO BIDCM tablet 12/14/17 Cefadroxil [Duricef] 1,000 mg PO BID #4 cap 12/14/17 Diltiazem CD [Cardizem CD] 120 mg PO QHS #30 cap 12/14/17 Diltiazem CD [Cardizem CD] 180 mg PO DAILY #30 cap 12/14/17 Nystatin 500,000 unit PO TID #150 ml 12/14/17 Prednisone 10 mg PO UD #30 tab 12/14/17 Following Prescrptions Were Given to Patient: Diltiazem CD [Cardizem CD] 120 mg PO QHS #30 cap Diltiazem CD [Cardizem CD] 180 mg PO DAILY #30 cap Prednisone 10 mg PO UD #30 tab Cefadroxil [Duricef] 1,000 mg PO BID #4 cap Nystatin 500,000 unit PO TID #150 ml Primary Care Physician: Christo Wilde MD [Primary Care Provider] - Please follow up with your Primary Care Physician in: 7-10 days Please Follow Up With: Asim Angel MD When: 2 weeks with Lauren Miguel in the office Disposition: Home Minutes spent on discharge:: 35 Patient Condition:: Stable Medical Necessity - Tobacco Use Smoking Status: Never smoker Tobacco Use: Non-smoker Meaningful Use Info Meaningful Use Diagnoses (Choose all that apply): None applicable Code Visit Inpatient E&M: 71238 Disch Hosp
== END 2017-12-14 17:26 | disposition home or self-care (01) | DRG 208 ==
LOC: ED 15:02 → MS3 16:50 → ICU 12-09 10:18 → PCU 12-12 11:53
PROVIDERS: Hospitalist; Internal Medicine Critical Care Medicine; Admitting Provider Hospitalist; Emergency Provider Emergency Medicine; Family Provider Family Medicine; PCP Family Medicine; Visit Provider Internal Medicine
DX: J44.0 Chronic obstructive pulmonary disease with (acute) lower respiratory infection (principal); J96.21 Acute and chronic respiratory failure with hypoxia; J15.0 Pneumonia due to Klebsiella pneumoniae; E43 Unspecified severe protein-calorie malnutrition; J15.212 Pneumonia due to Methicillin resistant Staphylococcus aureus; B37.0 Candidal stomatitis; G93.41 Metabolic encephalopathy; E87.2 Acidosis; E83.42 Hypomagnesemia; J96.22 Acute and chronic respiratory failure with hypercapnia; Z68.1 Body mass index [BMI] 19.9 or less, adult; I51.81 Takotsubo syndrome; E87.5 Hyperkalemia; I27.20 Pulmonary hypertension, unspecified; G47.33 Obstructive sleep apnea (adult) (pediatric); F41.9 Anxiety disorder, unspecified; E89.0 Postprocedural hypothyroidism; F32.9 Major depressive disorder, single episode, unspecified; I48.2 Chronic atrial fibrillation; J44.1 Chronic obstructive pulmonary disease with (acute) exacerbation; Z86.14 Personal history of Methicillin resistant Staphylococcus aureus infection; Z87.01 Personal history of pneumonia (recurrent); Z79.01 Long term (current) use of anticoagulants; Z99.81 Dependence on supplemental oxygen; Z79.899 Other long term (current) drug therapy; Z90.2 Acquired absence of lung [part of]
CPT/HCPCS: 31500; 31720; 36415; 36600; 71045; 80048; 80053; 80202; 82550; 82784; 82803; 82962; 83605; 83735; 84100; 84443; 84478; 84484; 85025; 85027; 87040; 87070; 87077; 87086; 87186; 87205; 87804; 93005; 94002; 94003; 94640; 94660; 94667; 94668; 95831; 97110; 97116; 97162; 97166; 97530; 97802; 99251; 99285; J7030; J7050; A4216; G0463; J2405

== ENCOUNTER 2017-12-26 11:24 | Inpatient (IN) | payer MEDICARE, OTHER, SELFPAY ==
[2017-12-26] VITALS (15 sets, daily range): BP systolic 110–151; BP diastolic 66–107; PULSE 99–122; RESP 16–24; TEMP 36.8–36.9; O2SAT 97–99; BMI 16.5; BMI 16.2
--- NOTE | 2017-12-26 11:45 | RAD_ITS ---
STUDY: X-RAY CHEST REASON FOR EXAM: Female, 72 years old. Acute onset of cough and shortness of breath. TECHNIQUE: AP and lateral views of the chest. COMPARISON: Comparison is made with prior study dated December 09, 2017. FINDINGS: EKG electrodes are seen. Hyperinflation. Stable lucency in the right lung apex with increased markings and areas of confluence in the right upper lobe suggestive of chronic obstructive pulmonary disease with bullous formation. Patchy areas of increased markings in the right midlung and lower lung. Essentially unchanged. Loss in the right hemithorax. The left lung is unremarkable. There is mild cardiac enlargement. Normal mediastinum and lindsey. Normal visualized pulmonary arteries. There is atherosclerotic tortuosity of the aortic arch and descending thoracic aorta. Normal visualized thoracic spine. Normal visualized ribs, clavicles, and shoulders. There is no demonstrated abnormality of the visualized soft tissue structures of the upper abdomen. RAD/Chest PA and Lateral IMPRESSION: Stable changes in the right hemithorax with chronic obstructive pulmonary disease with scarring and bullous changes. Electronically Signed: Tanner Romo MD at 12:39 EDT Tel [phone], Service support ,
--- NOTE | 2017-12-26 12:37 | EKG12_ITS ---
Test Reason : SOB Blood Pressure : / mmHG Vent. Rate : 114 BPM Atrial Rate : 111 BPM P-R Int : 000 ms QRS Dur : 092 ms QT Int : 354 ms P-R-T Axes : 000 -28 066 degrees QTc Int : 487 ms Atrial fibrillation Abnormal ECG Confirmed by KAISER MALLOY ([id number]), mapping editor CRISTIAN CAMARA ([id number]) on 12/29/2017 2:46:00 PM Referred By: KALIA/SHERIF Confirmed By:KAISER MALLOY
--- NOTE | 2017-12-26 12:39 | ED.VISSUMM ---
- ER Visit Summary Date of Service: 12/26/17 Chief Complaint: Shortness of breath History of Present Illness: The patient is a 72 F presenting with shortness of breath and inability to swallow. Patient states that she was admitted to the hospital for 8 days was discharged on December 14. She was admitted with pneumonia. She was on a ventilator during her hospital stay. She has a history of COPD, hypertension, A. fib. She states today she had increasing shortness of breath with productive cough. She denies fever. Denies chest pain. States she is having difficulty swallowing and states she has been unable to eat today. She wears home O2 2 L. Physical Examination: Vitals are stable. Patient is afebrile. Alert no acute distress. HEENT exam is unremarkable. Pharyngeal erythema with no exudate, uvula midline Neck is supple. Lungs are expiratory wheezing bilaterally. Heart is regular rate and rhythm. Abdomen is soft nontender nondistended. Extremities are unremarkable. Skin is warm and dry. No focal neurologic deficit. Remainder of exam is unremarkable. Emergency Department Course and Treatment: Patient given albuterol and Atrovent aerosols. CBC shows a white count 11.8, hemoglobin 11.7. Chemistries unremarkable. Troponin is negative. Lactic acid normal. She is hyperventilating with a pH of 7.58, PCO2 32.2, PCO2 of 146. Patient is continuously coughing up thick irving sputum. She states she is unable to swallow food. She failed bedside swallow eval. Will discuss the hospitalist for admission. Disposition: Admission Impression: Dysphagia This note was generated with [employer] dictation software. It may contain incorrect words, spelling, and punctuation that were not noted in review of the chart prior to signing ED Disposition - Plan for ED Patient: Chief Complaint: Shortness of Breath Referrals: Christo Wilde MD [Primary Care Provider] -
[2017-12-26] MEDS: 0.9% Normal Saline 1,000 ML 1000 ML IV (13:02)
[2017-12-26 13:05] LABS: Absolute Lymphocyte Count 0.64 X10^3/ul (0.83-4.51); Absolute Neutrophil Count 10.5 X10^3/uL (2.0-7.7); Eosinophil# 0.01 X10^3/uL; Eosinophils% 0.1 % (0-5); Hematocrit 37.4 % (37-47); Hemoglobin 11.7 g/dl (12.0-15.0); Lymphocyte # 0.64 X10^3/ul (4.0); Lymphocyte % 5.4 % (19-41); Mean Corp Hgb Conc 31.3 g/gl (32-36); Mean Corpuscular Hgb 25.7 pg (27.0-32.0); Mean Platelet Vol. 10.6 fl (6.2-12.0); Monocyte% 5.1 % (0-10); Neutrophil # 10.52 X10^3/uL (2.7-7.7); Neutrophil % 89.3 % (47-70); Platelet Count 177 K/mm3 (150-450); RBC Distribution Width CV 17.6 % (11.6-14.6); RBC Distribution Width SD 52.8 fl (35.1-43.9); Red Blood Count 4.56 M/mm3 (4.2-5.4); White Blood Count 11.8 K/mm3 (4.4-11.0)
[2017-12-26 13:06] LABS: POSITIVE COUNT NO; POSITIVE DIFFERENTIAL NO; POSITIVE MORPHOLOGY NO
[2017-12-26] MEDS: Ipratropium/Albuterol Sulfate 3 ML AMPUL.NEB INHALATION (13:16)
[2017-12-26] MEDS: Albuterol 2.5 MG/3 ML VIAL.NEB. INHALATION ×4 (13:18→18:41)
[2017-12-26 13:23] LABS: Anion Gap 4 (5-15); BUN 12 mg/dL (7-18); BUN/Creat Ratio 25.2 RATIO (10-20); Calcium,Total 8.6 mg/dL (8.5-10.1); Chloride 100 mmol/L (98-107); Creatinine, Serum 0.48 mg/dL (0.55-1.02); EST Glomerular Filtration Rate 135 mL/min (>60); Est Glom Filt Rate - Afr Amer 164 mL/min (>60); Estimated Creatinine Clearance 36.15 ml/min; Glucose 102 mg/dL (74-106); Potassium 4.2 mmol/L (3.5-5.1); Sodium Level 137 mmol/L (136-145)
[2017-12-26 13:42] LABS: Lactic Acid 1.2 mmol/L (0.4-2.0)
[2017-12-26 14:01] LABS: Base Excess 8 mmol/L (-2 to +2); Bicarbonate 30.3 mmol/L (22-26); Blood Gas Specimen Type ART; O2 Delivery Device Nasal Can; PO2 146 mmHG (75-100); SITE L Brachial; SO2 100 % (95-99); Time Given 1350; Total Carbon Dioxide 31 mmol/L; pCO2 32.2 mmHg (35-45); pH 7.58 (7.35-7.45)
--- NOTE | 2017-12-26 15:09 | NURSING ---
MED SURG OBS SOB, DYSPHAGIA GBARUK
--- NOTE | 2017-12-26 16:41 | HP.PCM_ITS ---
Problem List (1) Thrush, oral Status: Chronic (2) Community acquired pneumonia due to Klebsiella pneumoniae Status: Chronic (3) Hyperkalemia Status: Resolved (4) Hyponatremia Status: Resolved (5) Severe malnutrition Status: Chronic (6) Metabolic encephalopathy Status: Resolved (7) Atrial fibrillation with RVR Status: Chronic (8) Acute exacerbation of chronic obstructive pulmonary disease (COPD) Status: Resolved (9) Acute and chronic respiratory failure with hypoxia Status: Chronic (10) History of lobectomy of lung Status: Chronic (11) 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 (12) Chronic respiratory failure with hypoxia Status: Chronic (13) NEPTALI (obstructive sleep apnea) Status: Chronic (14) PND (paroxysmal nocturnal dyspnea) Status: Chronic (15) Bronchiectasis Status: Chronic Qualifiers: (16) Pulmonary hypertension Status: Chronic (17) Takotsubo cardiomyopathy Status: Chronic Comment: EF in August of 2016 was 45-50%, previously 20% (18) Chronic atrial fibrillation Status: Chronic History of Present Illness Date of Admission: 12/26/17 Chief Complaint: Odynophagia and dysphagia The patient is a 72 year old F medical problems including chronic respiratory failure with hypoxemia on supplemental oxygen, depression, NEPTALI, 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 She presented to the emergency room due to difficulty and painful swallowing. Severe pain trying to swallow saliva liquids or solids. She was just recently discharged from the hospital for pneumonia, acute COPD/bronchiectasis exacerbation, IV antibiotics and IV steroids and was discharged on p.o. steroids. Patient reports no new cough, worsening shortness of breath, fever or chills. 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) Chronic respiratory failure with hypoxia (Chronic) NEPTALI (obstructive sleep apnea) (Chronic) PND (paroxysmal nocturnal dyspnea) (Chronic) Bronchiectasis (Chronic) Pulmonary hypertension (Chronic) Takotsubo cardiomyopathy (Chronic) EF in August of 2016 was 45-50%, previously 20% Chronic atrial fibrillation (Chronic) Hypomagnesemia (Chronic) Recheck magnesium in 48 hours Allergies sulfamethoxazole [From Bactrim] Allergy (Verified 12/26/17 11:28) Hives PT STATES NOT ALLERGIC tetracycline Allergy (Verified 12/26/17 11:28) Hives trimethoprim [From Bactrim] Allergy (Verified 12/26/17 11:28) Hives verapamil Allergy (Verified 12/26/17 11:28) Unknown itraconazole Adverse Reaction (Verified 12/26/17 11:28) chest tightness w/ upper and loewr extremity weakness warfarin [From Coumadin] Adverse Reaction (Verified 12/26/17 11:28) gi bleed SODIUM PENTATHOL Allergy (Uncoded 12/26/17 11:28) jaundice/hives JAUNDICE Home Medications: Ambulatory Orders Medication Instructions Recorded Multivitamin [Daily Multiple 1 ea PO DAILY 08/04/15 Vitamin] Cholecalciferol (Vitamin D3) 2,000 unit PO DAILY 10/30/16 [Vitamin D3] Albuterol Inhaler [Ventolin Hfa] 1 - 2 puff INHALATION Q2H PRN PRN 11/21/16 #1 inhaler Formoterol Fumarate [Perforomist] 20 mcg INHALATION BID 04/18/17 Guaifenesin [Mucinex] 1,200 mg PO BID PRN 04/18/17 Sertraline HCl [Zoloft] 50 mg PO DAILY 04/18/17 albuterol sulfate 2.5 mg/3 mL 2.5 mg INHALATION Q4H PRN ml 08/31/17 (0.083 %) solution for nebulization lorazepam 0.5 mg tablet 0.5 mg PO DAILY PRN PRN tab 08/31/17 Apixaban [Eliquis] 2.5 mg PO BID 09/08/17 Budesonide [Pulmicort] 0.25 mg IH BID 09/08/17 Carvedilol [Coreg (Beta El)] 6.25 mg PO BID 09/08/17 Ferrous Gluconate 325 mg PO BIDCM 09/08/17 Levothyroxine [Synthroid] 88 mcg PO DAILY@0600 09/08/17 Magnesium Oxide [Mag-Ox 400] 400 mg PO BIDCM 09/08/17 traZODone [Desyrel] 50 mg PO QHS 09/08/17 fluticasone 50 mcg/actuation nasal 2 spray INTRANASAL DAILY #16 g 11/28/17 spray,suspension Methadone HCl 5 mg PO BID 12/06/17 Calcium Carb/Vitamin D [Os-Zach 1 tablet PO BIDCM 12/26/17 500MG + D] Diltiazem CD [Cardizem CD] 120 mg PO QHS 12/26/17 Diltiazem CD [Cardizem CD] 180 mg PO DAILY 12/26/17 Nystatin 500,000 unit PO TID 12/26/17 Surgical History: cholecystectomy, hysterectomy, - Psychiatric History: Anxiety SHUTTLE FINAL INSPECTOR 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: No pertinent SHUTTLE FINAL INSPECTOR history Smoking Status: Never smoker - *Family History Maternal History Items: No pertinent history Paternal History Items: Cancer VTE Information - Inpt Only VTE Present on Admission: Yes VTE Mechan Device Prophylaxis: SCD's VTE Pharm Prophylaxis ordered?: Yes - Physical Exam General: Alert, Oriented x3 HEENT: Atraumatic Oral: Moist Mucosa Neck: Supple, No JVD Lungs: Clear to auscultation Cardiovascular: Regular rate, Normal S1, Normal S2 Abdomen: Bowel Sounds Present, Soft, Non Tender Skin: No rashes Musculoskeletal: No Tenderness to Palpation of Joints or Extremities Neurological: Cranial nerves II-XII grossly intact, Deep Tendon Reflexes 2+/4 and Symmetrical, Neuro grossly intact, Motor Exam 5/5 strength throughout Vital Signs Temp Pulse Resp BP Pulse Ox 98.3 F 114 H 18 110/94 H 98 12/26/17 11:25 12/26/17 15:08 12/26/17 15:08 12/26/17 15:08 12/26/17 15:08 Weight: 45.6 kg Body Mass Index (BMI) 16.2 Assessment/Plan 1. Severe dysphagia/odynophagia; she most likely has candidal esophagitis given her history of oropharyngeal candidiasis and recent steroid use. I will start her on empiric IV Diflucan, topical analgesia, will keep her n.p.o., IV hydration, general surgeon consulted for EGD in a.m. 2 chronic respiratory failure with hypoxia will continue on supplemental oxygen. 3. COPD/bronchiectasis exacerbation; no evidence of acute exacerbation at this time, she is on bronchodilators and supplemental oxygen. 4. Chronic Atrial fibrillation; both Cardizem and Coreg for rate control as well as Eliquis for stroke prevention, since he cannot swallow pills at this time I will place her on a scheduled dose of IV metoprolol for now. If she requires further rate controlling agents she can be started on IV Cardizem drip. 5. Hypothyroidism; she will be given half dose of her home dose of levothyroxine as an IV formulation. 6. History of Takotsubo cardiomyopathy; her most recent echocardiogram showed an EF of about 40%, she currently does not appear to have acute n of congestive heart failure. Code Visit OBSV E&M: 30971 Initial observation care L3
[2017-12-26] MEDS: 0.9% Normal Saline 1,000 ML 60 ML IV (18:01)
[2017-12-26] MEDS: Budesonide Respules 0.5 MG/2 ML AMPUL.NEB. 0.25 MG INHALATION (18:41)
[2017-12-26] MEDS: NYSTATIN 500,000 UNIT/5 ML UDC 500000 UNIT PO (21:16)
[2017-12-26] MEDS: Metoprolol Tartrate 5 MG/5 ML Vial IV (23:26)
[2017-12-27] VITALS (23 sets, daily range): BP systolic 116–156; BP diastolic 72–110; PULSE 88–127; RESP 15–20; TEMP 36–37.3; O2SAT 97–116; BMI 16.2
--- NOTE | 2017-12-27 | EGD_PTH ---
PATIENT: FELIX DUNN LOC: [facility] U#:[id number] AGE/SX: 72/F ROOM: [facility] RE12/27/[address]: Dr. Alex Patricia MD : [id number] BED: 1 DIS: 01/02/2018 SPEC #: [id number] RECD: 12/27/17 14:57 STATUS: LUCERO REQ #: [id number] АННА: 12/27/17 00:[address]: Anibal Chowdary DEPT: SURGICAL PATHOLOGY RECD BY: Thomas Tao ENTERED: 12/27/17 14:57 SP TYPE: EGD BIOPSY OTHR DR: MD Dr. Autumn Hermosillo MD James R Hessler, MD Kombian Gbaruk, MD Dr. William Lago, MD Tissues: Esophageal mucous membrane Procedures: Special Stain Group I Surgery Specimen Level IV GMS Stain (control) Comments: @ Ordering doctor for SUIV edited from to @ by ROSARIO at 12/27/17 1617 @ Submitting doctor edited from to @ by YAHAIRAOD at 12/27/17 1613 HEADER OPERATION: EGD PRE-OP DIAGNOSIS: Dysphagia TISSUE SUBMITTED: Esophageal biopsy for fungal stain and culture MICROSCOPIC DIAGNOSIS Esophageal biopsy: Fragments of squamous epithelium with minimal chronic inflammation. Special stain for fungi is negative for organisms; matched control is appropriate. VENITA:lico 12/28/17 MICROSCOPIC DESCRIPTION Slides are reviewed. GROSS DESCRIPTION Received in fixative is one container labeled with the patient's name and designated esophageal biopsy. The specimen consists of multiple irregular fragments of light vega soft tissue that in aggregate measure 0.6 x 0.2 x 0.1 cm. The specimen is totally submitted in one cassette. / VENITA:lico 12/27/17 TC:3 CPT: 14630, 81053
[2017-12-27] MEDS: Metoprolol Tartrate 5 MG/5 ML Vial IV ×4 (06:22→23:10)
[2017-12-27] MEDS: Budesonide Respules 0.5 MG/2 ML AMPUL.NEB. 0.25 MG INHALATION ×2 (06:33→18:51)
[2017-12-27] MEDS: Albuterol 2.5 MG/3 ML VIAL.NEB. INHALATION ×4 (06:33→18:51)
[2017-12-27 06:35] LABS: Bedside Glucose 49 mg/dL (70-110)
[2017-12-27] MEDS: Dextrose 50%-Water 25 GM/50 ML DISP.SYRIN IV ×2 (06:49→11:17)
[2017-12-27 07:11] LABS: Bedside Glucose 215 mg/dL (70-110)
--- NOTE | 2017-12-27 08:00 | PCM.CONS.GEN ---
Problem List (1) Dysphagia Status: Acute Qualifiers: Dysphagia type: pharyngoesophageal phase Qualified Code(s): R13.14 - Dysphagia, pharyngoesophageal phase Reason for Consult Date of Consultation: 12/27/17 History of Present Illness: The patient is a 72 year old F who reports that she has been having trouble swallowing since yesterday. She just finished a high-dose steroid treatment for pneumonia. She reports that yesterday she developed a lot of sinus blockage and dysphagia. She reports that she was unable to swallow yesterday. This just suddenly happened. She has never had dysphasia in the past before. She reports that she did have a GI bleed last summer and she has never had an EGD. She does not report a sore throat. She says that when she tried to swallow yesterday felt like burning in her upper chest and throat. 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) Chronic respiratory failure with hypoxia (Chronic) NEPTALI (obstructive sleep apnea) (Chronic) PND (paroxysmal nocturnal dyspnea) (Chronic) Bronchiectasis (Chronic) Pulmonary hypertension (Chronic) Takotsubo cardiomyopathy (Chronic) EF in August of 2016 was 45-50%, previously 20% Chronic atrial fibrillation (Chronic) Hypomagnesemia (Chronic) Recheck magnesium in 48 hours Allergies sulfamethoxazole [From Bactrim] Allergy (Verified 12/26/17 11:28) Hives PT STATES NOT ALLERGIC tetracycline Allergy (Verified 12/26/17 11:28) Hives trimethoprim [From Bactrim] Allergy (Verified 12/26/17 11:28) Hives verapamil Allergy (Verified 12/26/17 11:28) Unknown itraconazole Adverse Reaction (Verified 12/26/17 11:28) chest tightness w/ upper and loewr extremity weakness warfarin [From Coumadin] Adverse Reaction (Verified 12/26/17 11:28) gi bleed SODIUM PENTATHOL Allergy (Uncoded 12/26/17 11:28) jaundice/hives JAUNDICE Home Medications: Ambulatory Orders Medication Instructions Recorded Multivitamin [Daily Multiple 1 ea PO DAILY 08/04/15 Vitamin] Cholecalciferol (Vitamin D3) 2,000 unit PO DAILY 10/30/16 [Vitamin D3] Albuterol Inhaler [Ventolin Hfa] 1 - 2 puff INHALATION Q2H PRN PRN 11/21/16 #1 inhaler Formoterol Fumarate [Perforomist] 20 mcg INHALATION BID 04/18/17 Guaifenesin [Mucinex] 1,200 mg PO BID PRN 04/18/17 Sertraline HCl [Zoloft] 50 mg PO DAILY 04/18/17 albuterol sulfate 2.5 mg/3 mL 2.5 mg INHALATION Q4H PRN ml 08/31/17 (0.083 %) solution for nebulization lorazepam 0.5 mg tablet 0.5 mg PO DAILY PRN PRN tab 08/31/17 Apixaban [Eliquis] 2.5 mg PO BID 09/08/17 Budesonide [Pulmicort] 0.25 mg IH BID 09/08/17 Carvedilol [Coreg (Beta El)] 6.25 mg PO BID 09/08/17 Ferrous Gluconate 325 mg PO BIDCM 09/08/17 Levothyroxine [Synthroid] 88 mcg PO DAILY@0600 09/08/17 Magnesium Oxide [Mag-Ox 400] 400 mg PO BIDCM 09/08/17 traZODone [Desyrel] 50 mg PO QHS 09/08/17 fluticasone 50 mcg/actuation nasal 2 spray INTRANASAL DAILY #16 g 11/28/17 spray,suspension Methadone HCl 5 mg PO BID 12/06/17 Calcium Carb/Vitamin D [Os-Zach 1 tablet PO BIDCM 12/26/17 500MG + D] Diltiazem CD [Cardizem CD] 120 mg PO QHS 12/26/17 Diltiazem CD [Cardizem CD] 180 mg PO DAILY 12/26/17 Nystatin 500,000 unit PO TID 12/26/17 Surgical History: cholecystectomy, hysterectomy, - Psychiatric History: Anxiety PORTFOLIO CONSULTANT History: No pertinent PORTFOLIO CONSULTANT history Smoking Status: Never smoker - *Family History Maternal History Items: No pertinent history Paternal History Items: Cancer Review of Systems Constitutional: Denies: Anorexia, Chills, Fever HEENT: Reports: Difficulty Swallowing, Dysphasia, Nasal Congestion. Denies: Head Aches, Sore Throat Cardiovascular: Denies: Chest Pain Respiratory: Reports: Shortness of Breath. Denies: Cough, Hemoptysis Gastrointestinal: Denies: Abdominal Pain Genitourinary: Denies: Dysuria Musculoskeletal: Denies: Joint Tenderness Skin: Denies: Dryness Patient Problems: Active and Suspected Problems (Last Updated 12/14/17 @ 17:06 by Guillermina Vincent DO) Dysphagia (Acute) - Physical Exam General: Alert, Oriented x3, Cooperative, No apparent distress HEENT: Atraumatic, PERRLA, EOMI Oral: Moist Mucosa Neck: Supple, No JVD, Trachea Midline Lungs: Normal air movement, Wheezes Cardiovascular: Regular rate, Regular Rhythm Abdomen: Soft, Non Tender, Non-Distended Extremities: No clubbing Skin: No rashes Musculoskeletal: No Muscle Wasting Neurological: Cranial nerves II-XII grossly intact Psych/Mental Status: Normal Affect, Appropriate Vital Signs Temp Pulse Resp BP Pulse Ox 96.8 F L 107 H 20 H 156/92 H 100 12/27/17 03:14 12/27/17 07:28 12/27/17 06:33 12/27/17 06:20 12/27/17 06:33 Oxygen Flow Rate (L/min) 2 Oxygen Delivery Method Nasal Cannula Weight: 100 lb 8.493 oz Body Mass Index (BMI) 16.2 Intake and Output for Last 24 Hours 12/25/17 12/26/17 12/27/17 23:59 23:59 23:59 Intake Total 315 / 315 414 / 414 Balance 315 / 315 414 / 414 POC Glucose 12/27/17 12/27/17 07:07 06:29 POC Glucose 215 H 49 L Clinical Impression(s) from Imaging Studies Chest X-Ray 12/26/17 11:45 IMPRESSION: Stable changes in the right hemithorax with chronic obstructive pulmonary disease with scarring and bullous changes. Electronically Signed: Tanner Romo MD at 12:39 EDT Tel [phone], Service support , Assessment/Plan Active and Suspected Problems (Last Updated 12/14/17 @ 17:06 by Guillermina Vincent DO) Dysphagia (Acute) 72-year-old female with dysphasia 1. The patient reports that she has been having trouble swallowing for the last 24 hours. The primary team suspects Ghislaine esophagitis given the recent dose of steroids. The patient reports that she has had a history of GI bleed and has never had an EGD. I do recommend EGD to rule out malignancy and to confirm esophagitis. 2. I did explain that she is an increased risk of bleeding as she is on Eliquis and had her last dose yesterday at 8 AM. She did not receive her evening dose. I recommend continue holding Eliquis and I will perform an EGD today at noon. I did inform her that the risks included bleeding and perforation of the esophagus. 3. Continue n.p.o. and IV fluids. Anibal Chowdary MD Pager: [facility] [address], [address] [place] [address] Office:
--- NOTE | 2017-12-27 08:05 | CON.PCM_ITS ---
Problem List (1) Dysphagia Status: Acute Qualifiers: Dysphagia type: pharyngoesophageal phase Qualified Code(s): R13.14 - Dysphagia, pharyngoesophageal phase Reason for Consult Date of Consultation: 12/27/17 History of Present Illness: The patient is a 72 year old F who reports that she has been having trouble swallowing since yesterday. She just finished a high-dose steroid treatment for pneumonia. She reports that yesterday she developed a lot of sinus blockage and dysphagia. She reports that she was unable to swallow yesterday. This just suddenly happened. She has never had dysphasia in the past before. She reports that she did have a GI bleed last summer and she has never had an EGD. She does not report a sore throat. She says that when she tried to swallow yesterday felt like burning in her upper chest and throat. 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) Chronic respiratory failure with hypoxia (Chronic) NEPTALI (obstructive sleep apnea) (Chronic) PND (paroxysmal nocturnal dyspnea) (Chronic) Bronchiectasis (Chronic) Pulmonary hypertension (Chronic) Takotsubo cardiomyopathy (Chronic) EF in August of 2016 was 45-50%, previously 20% Chronic atrial fibrillation (Chronic) Hypomagnesemia (Chronic) Recheck magnesium in 48 hours Allergies sulfamethoxazole [From Bactrim] Allergy (Verified 12/26/17 11:28) Hives PT STATES NOT ALLERGIC tetracycline Allergy (Verified 12/26/17 11:28) Hives trimethoprim [From Bactrim] Allergy (Verified 12/26/17 11:28) Hives verapamil Allergy (Verified 12/26/17 11:28) Unknown itraconazole Adverse Reaction (Verified 12/26/17 11:28) chest tightness w/ upper and loewr extremity weakness warfarin [From Coumadin] Adverse Reaction (Verified 12/26/17 11:28) gi bleed SODIUM PENTATHOL Allergy (Uncoded 12/26/17 11:28) jaundice/hives JAUNDICE Home Medications: Ambulatory Orders Medication Instructions Recorded Multivitamin [Daily Multiple 1 ea PO DAILY 08/04/15 Vitamin] Cholecalciferol (Vitamin D3) 2,000 unit PO DAILY 10/30/16 [Vitamin D3] Albuterol Inhaler [Ventolin Hfa] 1 - 2 puff INHALATION Q2H PRN PRN 11/21/16 #1 inhaler Formoterol Fumarate [Perforomist] 20 mcg INHALATION BID 04/18/17 Guaifenesin [Mucinex] 1,200 mg PO BID PRN 04/18/17 Sertraline HCl [Zoloft] 50 mg PO DAILY 04/18/17 albuterol sulfate 2.5 mg/3 mL 2.5 mg INHALATION Q4H PRN ml 08/31/17 (0.083 %) solution for nebulization lorazepam 0.5 mg tablet 0.5 mg PO DAILY PRN PRN tab 08/31/17 Apixaban [Eliquis] 2.5 mg PO BID 09/08/17 Budesonide [Pulmicort] 0.25 mg IH BID 09/08/17 Carvedilol [Coreg (Beta El)] 6.25 mg PO BID 09/08/17 Ferrous Gluconate 325 mg PO BIDCM 09/08/17 Levothyroxine [Synthroid] 88 mcg PO DAILY@0600 09/08/17 Magnesium Oxide [Mag-Ox 400] 400 mg PO BIDCM 09/08/17 traZODone [Desyrel] 50 mg PO QHS 09/08/17 fluticasone 50 mcg/actuation nasal 2 spray INTRANASAL DAILY #16 g 11/28/17 spray,suspension Methadone HCl 5 mg PO BID 12/06/17 Calcium Carb/Vitamin D [Os-Zach 1 tablet PO BIDCM 12/26/17 500MG + D] Diltiazem CD [Cardizem CD] 120 mg PO QHS 12/26/17 Diltiazem CD [Cardizem CD] 180 mg PO DAILY 12/26/17 Nystatin 500,000 unit PO TID 12/26/17 Surgical History: cholecystectomy, hysterectomy, - Psychiatric History: Anxiety CANNON FIRE DIRECTION SPECIALIST 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 Denies: Head Aches, Sore Throat Cardiovascular: Denies: Chest Pain Respiratory: Reports: Shortness of Breath. Denies: Cough, Hemoptysis Gastrointestinal: Denies: Abdominal Pain Genitourinary: Denies: Dysuria Musculoskeletal: Denies: Joint Tenderness Skin: Denies: Dryness Patient Problems: Active and Suspected Problems (Last Updated 12/14/17 @ 17:06 by Guillermina Vincent DO) Dysphagia (Acute) - Physical Exam General: Alert, Oriented x3, Cooperative, No apparent distress HEENT: Atraumatic, PERRLA, EOMI Oral: Moist Mucosa Neck: Supple, No JVD, Trachea Midline Lungs: Normal air movement, Wheezes Cardiovascular: Regular rate, Regular Rhythm Abdomen: Soft, Non Tender, Non-Distended Extremities: No clubbing Skin: No rashes Musculoskeletal: No Muscle Wasting Neurological: Cranial nerves II-XII grossly intact Psych/Mental Status: Normal Affect, Appropriate Vital Signs Temp Pulse Resp BP Pulse Ox 96.8 F L 107 H 20 H 156/92 H 100 12/27/17 03:14 12/27/17 07:28 12/27/17 06:33 12/27/17 06:20 12/27/17 06:33 Oxygen Flow Rate (L/min) 2 Oxygen Delivery Method Nasal Cannula Weight: 100 lb 8.493 oz Body Mass Index (BMI) 16.2 Intake and Output for Last 24 Hours 12/25/17 12/26/17 12/27/17 23:59 23:59 23:59 Intake Total 315 / 315 414 / 414 Balance 315 / 315 414 / 414 POC Glucose 12/27/17 12/27/17 07:07 06:29 POC Glucose 215 H 49 L Clinical Impression(s) from Imaging Studies Chest X-Ray 12/26/17 11:45 IMPRESSION: Stable changes in the right hemithorax with chronic obstructive pulmonary disease with scarring and bullous changes. Electronically Signed: Tanner Romo MD at 12:39 EDT Tel [phone], Service support , Assessment/Plan Active and Suspected Problems (Last Updated 12/14/17 @ 17:06 by Guillermina Vincent DO) Dysphagia (Acute) 72-year-old female with dysphasia 1. The patient reports that she has been having trouble swallowing for the last 24 hours. The primary team suspects Ghislaine esophagitis given the recent dose of steroids. The patient reports that she has had a history of GI bleed and has never had an EGD. I do recommend EGD to rule out malignancy and to confirm esophagitis. 2. I did explain that she is an increased risk of bleeding as she is on Eliquis and had her last dose yesterday at 8 AM. She did not receive her evening dose. I recommend continue holding Eliquis and I will perform an EGD today at noon. I did inform her that the risks included bleeding and perforation of the esophagus. 3. Continue n.p.o. and IV fluids. Anibal Chowdary MD Pager: [facility] [address], [address] [place] [address] Office:
[2017-12-27] MEDS: Fluticasone 0.05% 1 SPRAY NASAL.SRY 2 SPRAY NASAL (09:18)
--- NOTE | 2017-12-27 11:19 | PCM.PROGNOTE ---
<Susu Tolbert - Last Filed: 12/27/17 14:43> Patient Problems: Active and Suspected Problems (Last Updated 12/14/17 @ 17:06 by Guillermina Vincent DO) Dysphagia (Acute) Subjective: Patient seen and examined. She complains of postnasal drainage and continued difficulty swallowing. She states she has an intermittent productive cough with yellow sputum. Denies fever, chills. States she does not have a history of swallowing difficulty. To undergo EGD later this morning. Denies other complaints. - Physical Exam General: Alert, Oriented x3, Cooperative, No apparent distress Oral: Dry Mucosa Neck: Supple, No JVD, Negative Carotid Bruits Lungs: Clear to auscultation, Diminished Cardiovascular: Tachycardic, - - A.fib Abdomen: Bowel Sounds Present, Soft, Non Tender, Non-Distended Extremities: No clubbing, No cyanosis, No edema, Capillary Refill Less than 3 Seconds Skin: No rashes, No breakdown Musculoskeletal: No Tenderness to Palpation of Joints or Extremities Neurological: Cranial nerves II-XII grossly intact, Neuro grossly intact Psych/Mental Status: Normal Affect, Appropriate Vital Signs Temp Pulse Resp BP Pulse Ox 98.3 F 110 H 15 128/72 H 98 12/27/17 09:21 12/27/17 09:21 12/27/17 09:21 12/27/17 09:21 12/27/17 09:21 Oxygen Flow Rate (L/min) 2 Oxygen Delivery Method Nasal Cannula Weight: 45.6 kg Body Mass Index (BMI) 16.2 Intake and Output for Last 24 Hours 12/25/17 12/26/17 12/27/17 23:59 23:59 23:59 Intake Total 315 / 315 414 / 414 Balance 315 / 315 414 / 414 POC Glucose 12/27/17 12/27/17 07:07 06:29 POC Glucose 215 H 49 L Medical Necessity - Tobacco Use Smoking Status: Never smoker Assessment/Plan Active and Suspected Problems (Last Updated 12/14/17 @ 17:06 by Guillermina Vincent DO) Dysphagia (Acute) 1. Acute dysphagia and odynophagia-patient recently discharged 12/14/17 due to community-acquired pneumonia and was noted to have oral thrush. Recently completed prednisone taper. She was discharged at that time with nystatin p.o. 3 times daily. Possible candidal esophagitis? Continue IV Diflucan. Surgery on consult. Keep n.p.o. Continue IV fluids. EGD pending. Patient complains of postnasal drainage. Recently completed course of antibiotics with stop date 12/15/17. 2. Chronic hypoxic respiratory failure-continue supplemental oxygen to maintain O2 at or above 90%. 3. COPD-no acute exacerbation. Continue albuterol and budesonide aerosol. Follows with Dr. Angel. 4. Obstructive sleep apnea-continue BiPAP. 5. 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 6. Chronic bronchitis/bronchiectasis- Follows with Dr. Angel. 7. Chronic atrial fibrillation-rate controlled. Continue IV Lopressor 5 mg every 6. Eliquis on hold pending EGD. 8. Hypothyroidism-continue home Synthroid regimen when able to tolerate oral intake. Continue IV Synthroid 45 mcg. 9. History of Takotsubo Cardiomyopathy-Echo August 2016 with EF 45-50%. DVT prophylaxis-SCDs, Eliquis on hold pending EGD. This patient was seen by BETH PosadaC under the supervision of Dr. Humphries. <Autumn Humphries - Last Filed: 12/27/17 17:54> - Physical Exam Vital Signs Temp Pulse Resp BP Pulse Ox 98.1 F 88 16 146/84 H 100 12/27/17 13:24 12/27/17 15:24 12/27/17 15:24 12/27/17 13:27 12/27/17 13:24 Oxygen Flow Rate (L/min) 2 Oxygen Delivery Method Nasal Cannula Assessment/Plan Patient was seen and examined. She is s/p EGD with reported findings of purulent discharge, CT of the sinuses shows sinusitis. Recent admission, intubation, sputum cultures grew MRSA. ENT consulted - Paper note in the physical chart as well as recommendations- Discussed with Dr Vasquez, patient has hx of chronic sinusitis; surgery done in 2011, at the time the thinking was more for fungal infection. She has hx of MRSA in recent visit, will add Vancomycin IV, ID consult and continue on Unasyn pending report of cultures taken in OR. Discussed with him further surgical options of irrigation of sinuses to clear purulence in sinuses. She is being kept NPO for cookie swallow eval in am by speech therapy. Code Visit Inpatient E&M: 73782 Subs Hosp L3
[2017-12-27 11:21] LABS: Bedside Glucose 78 mg/dL (70-110)
--- NOTE | 2017-12-27 11:42 | PN_ITS ---
Addendum entered and electronically signed by TATY Posada 12/27/17 14:45: Code Visit Additional dx: Severe protein calorie malnutrition- BMI 16.2. Nutrition consult. Ensure supplement when cleared by speech therapy. Original Note: <Susu Tolbert - Last Filed: 12/27/17 14:43> Patient Problems: Active and Suspected Problems (Last Updated 12/14/17 @ 17:06 by Guillermina Vincent DO) Dysphagia (Acute) Subjective: Patient seen and examined. She complains of postnasal drainage and continued difficulty swallowing. She states she has an intermittent productive cough with yellow sputum. Denies fever, chills. States she does not have a history of swallowing difficulty. To undergo EGD later this morning. Denies other complaints. - Physical Exam General: Alert, Oriented x3, Cooperative, No apparent distress Oral: Dry Mucosa Neck: Supple, No JVD, Negative Carotid Bruits Lungs: Clear to auscultation, Diminished Cardiovascular: Tachycardic, - - A.fib Abdomen: Bowel Sounds Present, Soft, Non Tender, Non-Distended Extremities: No clubbing, No cyanosis, No edema, Capillary Refill Less than 3 Seconds Skin: No rashes, No breakdown Musculoskeletal: No Tenderness to Palpation of Joints or Extremities Neurological: Cranial nerves II-XII grossly intact, Neuro grossly intact Psych/Mental Status: Normal Affect, Appropriate Vital Signs Temp Pulse Resp BP Pulse Ox 98.3 F 110 H 15 128/72 H 98 12/27/17 09:21 12/27/17 09:21 12/27/17 09:21 12/27/17 09:21 12/27/17 09:21 Oxygen Flow Rate (L/min) 2 Oxygen Delivery Method Nasal Cannula Weight: 45.6 kg Body Mass Index (BMI) 16.2 Intake and Output for Last 24 Hours 12/25/17 12/26/17 12/27/17 23:59 23:59 23:59 Intake Total 315 / 315 414 / 414 Balance 315 / 315 414 / 414 POC Glucose 12/27/17 12/27/17 07:07 06:29 POC Glucose 215 H 49 L Medical Necessity - Tobacco Use Smoking Status: Never smoker Assessment/Plan Active and Suspected Problems (Last Updated 12/14/17 @ 17:06 by Guillermina Vincent DO) Dysphagia (Acute) 1. Acute dysphagia and odynophagia-patient recently discharged 12/14/17 due to community-acquired pneumonia and was noted to have oral thrush. Recently completed prednisone taper. She was discharged at that time with nystatin p.o. 3 times daily. Possible candidal esophagitis? Continue IV Diflucan. Surgery on consult. Keep n.p.o. Continue IV fluids. EGD pending. Patient complains of postnasal drainage. Recently completed course of antibiotics with stop date 12/15/17. 2. Chronic hypoxic respiratory failure-continue supplemental oxygen to maintain O2 at or above 90%. 3. COPD-no acute exacerbation. Continue albuterol and budesonide aerosol. Follows with Dr. Angel. 4. Obstructive sleep apnea-continue BiPAP. 5. 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 6. Chronic bronchitis/bronchiectasis- Follows with Dr. Angel. 7. Chronic atrial fibrillation-rate controlled. Continue IV Lopressor 5 mg every 6. Eliquis on hold pending EGD. 8. Hypothyroidism-continue home Synthroid regimen when able to tolerate oral intake. Continue IV Synthroid 45 mcg. 9. History of Takotsubo Cardiomyopathy-Echo August 2016 with EF 45-50%. DVT prophylaxis-SCDs, Eliquis on hold pending EGD. This patient was seen by TATY Posada under the supervision of Dr. Humphries. <Autumn Humphries - Last Filed: 12/27/17 17:54> - Physical Exam Vital Signs Temp Pulse Resp BP Pulse Ox 98.1 F 88 16 146/84 H 100 12/27/17 13:24 12/27/17 15:24 12/27/17 15:24 12/27/17 13:27 12/27/17 13:24 Oxygen Flow Rate (L/min) 2 Oxygen Delivery Method Nasal Cannula Assessment/Plan Patient was seen and examined. She is s/p EGD with reported findings of purulent discharge, CT of the sinuses shows sinusitis. Recent admission, intubation, sputum cultures grew MRSA. ENT consulted - Paper note in the physical chart as well as recommendations- Discussed with Dr Vasquez, patient has hx of chronic sinusitis; surgery done in 2011, at the time the thinking was more for fungal infection. She has hx of MRSA in recent visit, will add Vancomycin IV, ID consult and continue on Unasyn pending report of cultures taken in OR. Discussed with him further surgical options of irrigation of sinuses to clear purulence in sinuses. She is being kept NPO for cookie swallow eval in am by speech therapy. Code Visit Inpatient E&M: 18193 Subs Hosp L3
[2017-12-27 11:50] LABS: Bedside Glucose 146 mg/dL (70-110)
--- NOTE | 2017-12-27 12:51 | PCM.OPRPT ---
Problem List (1) Dysphagia Status: Acute Qualifiers: Dysphagia type: pharyngoesophageal phase Qualified Code(s): R13.14 - Dysphagia, pharyngoesophageal phase Report of Operation Date of Procedure: 12/27/17 Pre-Operative Diagnosis: Dysphasia Post-Operative Diagnosis: Upper airway versus nasal infection with postnasal purulent drainage. Surgery/Procedure Performed:: EGD with biopsy of esophagus Specimen's removed: 1. Esophageal biopsy sent for culture and pathology. 2. Fluid aspirated from oropharynx for culture Description of Procedure: The major risks and benefits associated with the procedure were explained to the patient in detail. The patient verbalized understanding and agreement with the same. The patient was then placed in the left lateral decubitus position. IV sedation was started by anesthesia. The endoscope was then advanced under direct visualization. The patient had purulent material in her oropharynx posterior to the epiglottis. Some of this was suctioned and sent for culture. Upon entering the esophagus, it appeared that there is purulent drainage from the upper airway/nasal area that was draining down the esophagus but there were no white patches indicative of Ghislaine esophagitis. The scope was advanced into the stomach into the duodenum. It was slowly withdrawn and the mucosa was carefully evaluated. Duodenal mucosal abnormalities were not visualized. There are several punctate areas of bleeding in the stomach indicative of severe gastritis. The GE junction appeared normal. No evidence of Butler's esophagus was apparent. Careful examination of the remainder of the esophagus was normal. Biopsies of the mid and proximal esophagus were taken with cold forceps. Hemostasis was good. The scope was then withdrawn from the patient and the procedure terminated. It was well tolerated and there were no immediate complications. Recommendations: I have started the patient on a PPI due to the severe gastritis with punctate bleeding. She may need to be seen by ENT for the severe sinus congestion and drainage of purulent material into the esophagus. There was no malignancy or sign of mechanical obstruction or reason for her dysphagia.
[2017-12-27] MEDS: NYSTATIN 500,000 UNIT/5 ML UDC 500000 UNIT PO (13:27)
--- NOTE | 2017-12-27 14:37 | CT_ITS ---
STUDY: CT FACIAL BONES WITHOUT CONTRAST REASON FOR EXAM: Female, 72 years old. Nasal drainage. RADIATION DOSAGE (If Supplied By Facility): CTDIvol = ( 29.38 ) mGy, DLP = ( 429.92 ) mGycm TECHNIQUE: The patient was scanned in a multi detector CT scanner. Sagittal and coronal images were reconstructed. Individualized dose optimization techniques were used for this CT. COMPARISON: None. FINDINGS: Normal soft tissue structures. Normal orbital levine and orbital contents. Nasal septal deviation towards the left side of the midline. Normal facial bones. There is no demonstrated fracture. Opacification of the maxillary sinus bilaterally. Partial opacification of the ethmoid sinuses. Partial opacification of the frontal sinuses worse on the left side. CT/Sinus/Facial Bone IMPRESSION: Sinusitis. Nasal septal deviation towards the left side of the midline. Electronically Signed: Tanner Romo MD at 16:03 EDT Tel [phone], Service support ,
[2017-12-27] MEDS: LORazepam 2 MG/ML Syringe 0.5 MG IV (15:27)
[2017-12-27] MEDS: 0.9% NaCl Peripheral Flush Adult/Peds IV ×3 (15:28→23:10)
[2017-12-27] MEDS: Dextrose 5%/0.9% NaCl 1,000 ML 100 ML IV (16:18)
[2017-12-27 17:46] LABS: Bedside Glucose 89 mg/dL (70-110)
--- NOTE | 2017-12-27 17:47 | PCM.CONS.B ---
- Consult Date of Consult: 12/27/17 ENT consultation: The patient is a 72-year-old white female well known to my colleague Dr. Sabino Boateng as she has had problems with recurring sinusitis. Back in 2011 she underwent right Bradshaw luck procedure as well as right partial ethmoidectomy with maxillary antrostomy to remove retained dense secretions in the right maxillary sinus. Based on her previous history of pulmonary aspergillosis and her repeated antibiotic treatments for sinusitis Dr. Boateng had suspected fungal infection in the right maxillary sinus. This turned out to be infection due to Pseudomonas and was treated aggressively with Levaquin and eventually cleared. She was then seen again in 2016 at which time she had recurring sinonasal drainage. Repeat culture revealed MRSA. I believe she was referred to infectious disease service and underwent treatment in that fashion. No other surgical intervention was entertained or undertaken at that time. This woman was admitted yesterday because of progressive dysphagia and it was thought that this might be fungal esophagitis as she had been treated with antibiotics for a pneumonia last month. Dr. Chowdary performed EGD this morning and was impressed by the amount of posterior sinonasal drainage. He did sample this for culture and sensitivity. Upon completion of his examination he felt that the sinonasal drainage might be the more important aspect of the etiology of her swallowing symptomatology. A CT scan of the paranasal sinuses was undertaken noting thickened mucosa throughout and Unasyn was started by the hospitalist team. Based on the additional information from the patient that she was MRSA positive last month when being treated for pneumonia one would suspect that MRSA is once again involved in her infectious process. Chronic sinusitis is often the result of staphylococcal bacteria as the other bacteria are easily cleared with the usual antibiotics. Review of the CT scan does in fact reveal the previous surgery done by Dr. Boateng whereby the right ethmoid has been opened and the right maxillary sinus ostium has been enlarged such that the lateral nasal wall has been partly removed. Retention of secretion is certainly possible but this may be thickened mucosa of a chronic nature. The entire process may be one of chronic mucosal dysfunction and stasis of secretions rather than anatomical obstruction. I discussed this information with the hospitalist Dr. Humphries and antibiotics will be changed to cover for MRSA until culture and sensitivity results are available. I will discuss this with Dr. Sabino Nath and if medical management is insufficient, additional procedure/intervention may be indicated. David Vasquez MD
--- NOTE | 2017-12-27 19:51 | NURSING ---
GEAR LAPPER JAY NOTIFIED THIS RN THAT UNASYN IV WAS BEEPING COMPLETED BUT UNASYN BAG STILL FULL AND WAS CLAMPED. UNASYN WAS HUNG BY DAYSHIFT RN. UNASYN UNCLAMPED AT THIS TIME AND IS INFUSING.
[2017-12-27 20:02] LABS: Hemoglobin A1c 6.1 % (4.2-6.3)
[2017-12-27 23:26] LABS: Bedside Glucose 100 mg/dL (70-110)
[2017-12-28] VITALS (26 sets, daily range): BP systolic 96–145; BP diastolic 62–95; PULSE 81–137; RESP 12–23; TEMP 36.3–37.2; O2SAT 96–100
[2017-12-28 03:46] LABS: Bedside Glucose 98 mg/dL (70-110)
[2017-12-28] MEDS: Albuterol 2.5 MG/3 ML VIAL.NEB. INHALATION ×5 (03:55→18:35)
[2017-12-28] MEDS: 0.9% NaCl Peripheral Flush Adult/Peds IV ×5 (05:11→20:26)
[2017-12-28] MEDS: Metoprolol Tartrate 5 MG/5 ML Vial IV ×4 (05:12→18:12)
[2017-12-28 05:32] LABS: Hematocrit 39.2 % (37-47); Hemoglobin 12.2 g/dl (12.0-15.0); Mean Corp Hgb Conc 31.1 g/gl (32-36); Mean Corpuscular Volume 83.4 fL (81-99); Mean Platelet Vol. 9.7 fl (6.2-12.0); Platelet Count 122 K/mm3 (150-450); RBC Distribution Width CV 17.6 % (11.6-14.6); RBC Distribution Width SD 53.8 fl (35.1-43.9); White Blood Count 7.4 K/mm3 (4.4-11.0)
[2017-12-28 05:33] LABS: Scan Indicated on CBC? Y/N NO
[2017-12-28 05:55] LABS: Anion Gap 8 (5-15); BUN 4 mg/dL (7-18); BUN/Creat Ratio 11.6 RATIO (10-20); Calcium,Total 7.6 mg/dL (8.5-10.1); Chloride 105 mmol/L (98-107); Creatinine, Serum 0.35 mg/dL (0.55-1.02); EST Glomerular Filtration Rate 196 mL/min (>60); Est Glom Filt Rate - Afr Amer 237 mL/min (>60); Estimated Creatinine Clearance 35.53 ml/min; Glucose 92 mg/dL (74-106); Potassium 3.3 mmol/L (3.5-5.1); Sodium Level 141 mmol/L (136-145)
[2017-12-28] MEDS: Budesonide Respules 0.5 MG/2 ML AMPUL.NEB. 0.25 MG INHALATION ×2 (06:36→18:35)
[2017-12-28] MEDS: Dextrose 5%/0.9% NaCl 1,000 ML 100 ML IV (06:50)
[2017-12-28 07:01] LABS: Bedside Glucose 78 mg/dL (70-110)
--- NOTE | 2017-12-28 08:20 | PCM.RX.CS ---
Consult Pharmacy has been consulted to manage selected antiobiotic: Vancomycin Type of Consult: New start Suspected Infection: Skin/Soft tissue Prior Doses of Antibiotics Received/Current Regimen: Received 750mg IV on 12/27/17 at 21:00 Labs: Sodium 141 mmol/L (136-145) 12/28/17 05:20 Potassium 3.3 mmol/L (3.5-5.1) L 12/28/17 05:20 Chloride 105 mmol/L (98-107) 12/28/17 05:20 Carbon Dioxide 28.0 mmol/L (21.0-32.0) 12/28/17 05:20 Anion Gap 8 (5-15) 12/28/17 05:20 BUN 4 mg/dL (7-18) L 12/28/17 05:20 Creatinine 0.35 mg/dL (0.55-1.02) L 12/28/17 05:20 Est GFR (MDRD) Af Amer 237 mL/min (>60) 12/28/17 05:20 Est GFR (MDRD) Non-Af 196 mL/min (>60) 12/28/17 05:20 BUN/Creatinine Ratio 11.6 RATIO (10-20) 12/28/17 05:20 Glucose 92 mg/dL (74-106) 12/28/17 05:20 Weight used for dosin.6 kg Estimated Creatinine Clearance: 36 ml/min Goal Trough: 10-15 mcg/mL Pharmacy Plan for Drug Dosing: Noting that patient was previously dosed at a q12h interval, we will begin at 750mg IV q12h. Pharmacy Service will continue to monitor and adjust dosing as required. Follow-Up Labs: Trough Vancomycin Labs to be done on [date and time ordered]: 12/29/17 at 08:30 before the 4th dose
--- NOTE | 2017-12-28 10:00 | CASEMGMT ---
READMISSION CHART REVIEW: CHRISTIANOE Strata: 3 ADM DX: ASPIRATION PNA, DIFFICULTY SWALLOWING INITIAL ADM DX: ACUTE ON CHRONIC RESPIRATORY FAILURE SECONDARY TO BRONCHIECTASIS/COPD EXAC SEE CM ASSESSMENT FROM 12/08/17 COMPLETED BY ADAN LUA CM. ASSESSMENT FOR THIS VISIT: Per physician report, the patient is a 72 year old F medical problems including chronic respiratory failure with hypoxemia on supplemental oxygen, depression, NEPTAIL, 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 She presented to the emergency room due to difficulty and painful swallowing. Severe pain trying to swallow saliva liquids or solids. She was just recently discharged from the hospital for pneumonia, acute COPD/bronchiectasis exacerbation, IV antibiotics and IV steroids and was discharged on p.o. steroids. TREATMENT PLAN: Empiric IV Diflucan for likely candidal esophagitis, topical analgesia, will keep her n.p.o., IV hydration, EGD completed, ENT consult and swallow study. TRANSITION PLANNING/CARE: [facility] to follow for any discharge planning/needs. Pt's PCP is and sees Dr. Angel for pulmonology. Pt lives with and is independent at home and refused HHC at discharge of last visit. Pt states that can help with anything that she may need. PLAN: Home [place] [facility]
[2017-12-28] MEDS: Fluticasone 0.05% 1 SPRAY NASAL.SRY 2 SPRAY NASAL (10:22)
--- NOTE | 2017-12-28 12:22 | CON.PCM_ITS ---
Problem List (1) Sinusitis Status: Acute Reason for Consult: sinusitis Consulted by: Dr. Vincent History of Present Illness: The patient is a 72 year old F with h/o multiple admissions with cxs (+) for MRSA and K. pneumo. Recently discharged on 2 days of omnicef 12/14 after admission for septic shock and pneumonia. Had been doing fine until sudden onset 12/26 of severe sinus pain, worse on R, and heavy thick green sinus drainage associated with some cough and nausea. No fever or chills. Came to ED , admitted, unasyn started, vanc added. EGD showed heavy drainage and cx sent. Feeling about the same today. ENT following. Full ROS performed and neg except as noted above. 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) Chronic respiratory failure with hypoxia (Chronic) NEPTALI (obstructive sleep apnea) (Chronic) PND (paroxysmal nocturnal dyspnea) (Chronic) Bronchiectasis (Chronic) Pulmonary hypertension (Chronic) Takotsubo cardiomyopathy (Chronic) EF in August of 2016 was 45-50%, previously 20% Chronic atrial fibrillation (Chronic) Hypomagnesemia (Chronic) Recheck magnesium in 48 hours Allergies/Adverse Reactions: Allergies sulfamethoxazole [From Bactrim] Allergy (Verified 12/26/17 11:28) Hives PT STATES NOT ALLERGIC tetracycline Allergy (Verified 12/26/17 11:28) Hives trimethoprim [From Bactrim] Allergy (Verified 12/26/17 11:28) Hives verapamil Allergy (Verified 12/26/17 11:28) Unknown itraconazole Adverse Reaction (Verified 12/26/17 11:28) chest tightness w/ upper and loewr extremity weakness warfarin [From Coumadin] Adverse Reaction (Verified 12/26/17 11:28) gi bleed SODIUM PENTATHOL Allergy (Uncoded 12/26/17 11:28) jaundice/hives JAUNDICE Home Medications: Ambulatory Orders Medication Instructions Recorded Multivitamin [Daily Multiple 1 ea PO DAILY 08/04/15 Vitamin] Cholecalciferol (Vitamin D3) 2,000 unit PO DAILY 10/30/16 [Vitamin D3] Albuterol Inhaler [Ventolin Hfa] 1 - 2 puff INHALATION Q2H PRN PRN 11/21/16 #1 inhaler Formoterol Fumarate [Perforomist] 20 mcg INHALATION BID 04/18/17 Guaifenesin [Mucinex] 1,200 mg PO BID PRN 04/18/17 Sertraline HCl [Zoloft] 50 mg PO DAILY 04/18/17 albuterol sulfate 2.5 mg/3 mL 2.5 mg INHALATION Q4H PRN ml 08/31/17 (0.083 %) solution for nebulization lorazepam 0.5 mg tablet 0.5 mg PO DAILY PRN PRN tab 08/31/17 Apixaban [Eliquis] 2.5 mg PO BID 09/08/17 Budesonide [Pulmicort] 0.25 mg IH BID 09/08/17 Carvedilol [Coreg (Beta El)] 6.25 mg PO BID 09/08/17 Ferrous Gluconate 325 mg PO BIDCM 09/08/17 Levothyroxine [Synthroid] 88 mcg PO DAILY@0600 09/08/17 Magnesium Oxide [Mag-Ox 400] 400 mg PO BIDCM 09/08/17 traZODone [Desyrel] 50 mg PO QHS 09/08/17 fluticasone 50 mcg/actuation nasal 2 spray INTRANASAL DAILY #16 g 11/28/17 spray,suspension Methadone HCl 5 mg PO BID 12/06/17 Calcium Carb/Vitamin D [Os-Zach 1 tablet PO BIDCM 12/26/17 500MG + D] Diltiazem CD [Cardizem CD] 120 mg PO QHS 12/26/17 Diltiazem CD [Cardizem CD] 180 mg PO DAILY 12/26/17 Nystatin 500,000 unit PO TID 12/26/17 - Social History SMOKING STATUS:: Never smoker Vital Signs Temp Pulse Resp BP Pulse Ox 98.1 F 108 H 20 H 143/94 H 100 12/28/17 10:35 12/28/17 11:02 12/28/17 10:35 12/28/17 10:35 12/28/17 10:35 Oxygen Flow Rate (L/min) 2 Oxygen Delivery Method Nasal Cannula Laboratory Tests Past 24 Hrs 12/28/17 12/28/17 05:20 05:20 WBC 7.4 RBC 4.70 Hgb 12.2 Hct 39.2 MCV 83.4 MCH 26.0 L MCHC 31.1 L RDW 17.6 H RDW Differential 53.8 H Plt Count 122 L MPV 9.7 Sodium 141 Potassium 3.3 L Chloride 105 Carbon Dioxide 28.0 Anion Gap 8 BUN 4 L Creatinine 0.35 L Estim Creat Clear Calc 35.53 Est GFR (MDRD) Af Amer 237 Est GFR (MDRD) Non-Af 196 BUN/Creatinine Ratio 11.6 Glucose 92 Calcium 7.6 L - Other Studies Radiology: [] reviewed Other Studies: [] Route of nutrition/ use of supplements: [] Nutritional Intake: [] IV Site: [] Hernandez Catheter: [] - Physical Exam General: Alert, Cooperative, - - ill appearing HEENT: Atraumatic, PERRLA, EOMI Neck: Supple, No Nodes Lungs: Rhonchi Cardiovascular: Regular rate, Regular Rhythm, No murmurs Abdomen: Bowel Sounds Present, Soft, Non Tender, Non-Distended Extremities: No edema Skin: No rashes IV Site: Peripheral Musculoskeletal: No Tenderness to Palpation of Joints or Extremities Neurological: Cranial nerves II-XII grossly intact - Assessment/Plan Antibiotics: [] Assessment/Plan: [] Active and Suspected Problems (Last Updated 12/14/17 @ 17:06 by Guillermina Vincent DO) Dysphagia (Acute) Sinusitis - cxs recurrently (+) for MRSA and K.pneumo. Multiple admissions in past year with infection with these organisms. PO abx options for MRSA are limited based on her allergies. Options to try and eliminate this infection would be source control with some sort of ENT procedure vs long course of iv vanc as an outpatient. For now, will continue vanc/unasyn while cxs pending. Thank you, will follow, d/w primary team.
[2017-12-28] MEDS: LORazepam 2 MG/ML Syringe 0.5 MG IV (12:31)
--- NOTE | 2017-12-28 14:00 | RAD_ITS ---
STUDY: SWALLOWING STUDY REASON FOR EXAM: Female, 72 years old. Aspiration. TECHNIQUE: The examination was performed with Speech Pathology in attendance. Under fluoroscopic observation, the patient ingested thin barium, thick barium, barium pudding, and barium coated cracker. FLUOROSCOPY TIME: 1:55 minutes/seconds. 1810 spot images were obtained. RADIOLOGIST INVOLVEMENT: Radiologist was present and providing direct supervision. COMPARISON: None. FINDINGS: The following was observed during swallowing of the various mixtures of barium: Thin Barium: Aspiration with ingestion of thin liquids. Thick Barium: Aspiration with ingestion of nectar thickened liquids. Moderate amount of the residual is seen in the piriform sinuses. RAD/Swallowing Function w/Video IMPRESSION: Aspiration with ingestion of thin liquids and nectar thickened liquids. The swallow study findings were discussed with the patient by the speech pathologist at the conclusion of the examination. Please see speech pathology report for more information and recommendations. Electronically Signed: Tanner Romo MD at 15:21 EDT Tel [phone], Service support ,
--- NOTE | 2017-12-28 14:00 | SP.MBSS_ITS ---
PRIMARY / SECONDARY DIAGNOSIS: dysphagia (R13.10) REFERRING PHYSICIAN: Susu Ridley, [employer] CURRENT DIET: NPO DENTITION: WFL MENTAL STATUS: WNL RESPIRATORY STATUS: O2 at 3L/min via nasal cannula PREVIOUS MODIFIED BARIUM SWALLOW STUDY: none REASON FOR REFERRAL: Patient is a 72 year old female referred for a modified barium swallow (MBS) study to objectively assess the Patients oropharyngeal swallow function under fluoroscopy secondary to reported odynophagia and dysphagia, with an inability to establish an appropriate diet texture tolerated at bedside. Patient currently treated for suspected esophagitis candidiasis given her history of oropharyngeal candidiasis and recent steroid use with IV Diflucan and topical analgesia. 12/26/2017 CXR revealed Stable changes in the right hemithorax with chronic obstructive pulmonary disease with scarring and bullous changes. 2017 EGD revealed purulent drainage from the upper airway/nasal area that was draining down the esophagus but there were no white patches indicative of Ghislaine esophagitis; several punctate areas of bleeding in the stomach indicative of severe gastritis; no malignancy or sign of mechanical obstruction or reason for her dysphagia; recommendations suggesting possible ENT referral associated with severe sinus congestion and drainage of purulent material into the esophagus. MEDICAL HISTORY: Acute and chronic respiratory failure with hypoxia, lobectomy of lung, bronchiectasis, community acquired pneumonia due to Klebsiella pneumoniae, colonization with methicillin resistant Staphylococcus aureus, paroxysmal nocturnal dyspnea, oral candidiasis, pulmonary hypertension, Takotsubo cardiomyopathy, chronic atrial fibrillation with RVR, hypomagnesemia, obstructive sleep apnea, severe malnutrition, prior Bradshaw-alicia procedure and right partial ethmoidectomy with maxillary antrostomy in 2011 STUDY FINDINGS: Patient participated in a Modified Barium Swallow (MBS) study on 12/28/2017. Dr. Romo was the radiologist present for this evaluation. This study was recorded in the lateral view and images were sent to PACs for storage. The following consistencies were presented to this patient for analysis of oropharyngeal swallow function: thin liquids and nectar thickened liquids, with further trials held due to significance of pharyngeal involvement, high likelihood of continual aspiration, and higher risk of asphyxiation. Results of the MBS are as follows: PENETRATION / ASPIRATION SCALE (WYNN): 1 = does not enter airway 2 = enters airway/above vocal folds/ejected 3 = enters airway/above vocal folds/not ejected 4 = enters airway/contacts vocal folds/ejected 5 = enters airway/contacts vocal folds/not ejected 6 = enters airway/below vocal folds/ejected 7 = enters airway/below vocal folds/not ejected despite effort 8 = enters airway/below vocal folds/no effort VIDEOFLOROSCOPIC SCALE SCORE (WYNN): Grade I = aspiration of material that has penetrated into the laryngeal vestibule, intact cough reflex Grade II = aspiration < 10 % of the bolus, intact cough reflex Grade III = aspiration of < 10 % of the bolus, reduced cough reflex or aspiration of > 10 % of the bolus, intact cough reflex Grade IV = aspiration of > 10 % of the bolus, reduced cough reflex PENETRATION / ASPIRATION SCALE (SCORE) WITH VIDEOFLOROSCOPIC SCALE SCORE: Thin liquid - 5 mL tsp.: 8, 7* - Grade IV Thin liquids via cup (single sip): 6 - Grade III Thin liquids via cup (single sip): 8, 7* - Grade III Saticoy thickened liquids via cup (single sip): 7 - Grade III * denotes post prandial overt reaction with continual addition of aspirated material IMPRESSION: DIAGNOSIS: profound oropharyngeal dysphagia (R13.12) ORAL PHASE CHARACTERIZED BY: LABIAL SEAL: no labial escape TONGUE CONTROL DURING BOLUS MANIPULATION: posterior escape of less than half of bolus BOLUS PREPARATION / MASTICATION: did not test BOLUS TRANSPORT / LINGUAL MOTION: slowed tongue motion ORAL RESIDUE: residue collection on oral structures PHARYNGEAL PHASE CHARACTERIZED BY: INITIATION OF PHARYNGEAL SWALLOW: bolus head in valleculae at first hyoid excursion SOFT PALATE ELEVATION: trace column of contrast/air between soft palate and pharyngeal wall LARYNGEAL ELEVATION: minimal superior movement of thyroid cartilage/minimal approximation of arytenoids cartilage to epiglottic petiole ANTERIOR HYOID EXCURSION: trace anterior movement EPIGLOTTIC MOVEMENT: little to no epiglottic inversion LARYNGEAL VESTIBULE CLOSURE AT HEIGHT OF SWALLOW: incomplete laryngeal vestibule closure with narrow column of air/contrast in laryngeal vestibule PHARYNGEAL STRIPPING WAVE: pharyngeal stripping wave present / diminished PHARYNGOESOPHAGEAL SEGMENT OPENING: minimal distension and minimal duration with marked obstruction of flow TONGUE BASE RETRACTION: wide column of contrast between tongue base and posterior pharyngeal wall PHARYNGEAL RESIDUE: majority of contrast within or on pharyngeal structures ESOPHAGEAL PHASE CHARACTERIZED BY: ESOPHAGEAL BOLUS CLEARANCE IN THE UPRIGHT POSITION: could not view EFFECTS OF TREATMENT STRATEGIES ATTEMPTED: Chin tuck posture = ineffective Cough and reswallow = ineffective Cued expectoration = moderately effective Effort swallow = ineffective Reduced bolus size = ineffective DIET TEXTURE RECOMMENDATIONS: Will recommend continued NPO status. INTERPRETATION OF RESULTS: Patient presents with profound oropharyngeal dysphagia (R13.12). Oral phase primarily marked by suboptimal lingual control with noted slowed rate of bolus manipulation and frequent posterior premature spillage; and poor oral clearance secondary to reduced intraoral strength. Pharyngeal phase severely impaired, involving all facets, most notably severe pharyngeal dysmotility with impairment along the entirety of the pharyngeal constrictors and pharyngoesophageal segment opening further complicated by little to no epiglottic inversion, with the epiglottis at times projecting the bolus superiorly vs. inferiorly leading to copious pharyngeal retention within the valleculae and to a much larger extent the pyriform sinus contributing to post prandial and prandial aspiration; significantly impaired closure of the airway during deglutition with little to no hyolaryngeal excursion leading to little epiglottic movement and clear insufficient laryngeal vestibule closure / pressure generated to expel penetrated material leading to prandial aspiration. Further noted velopharyngeal insufficiency typically identified in neurologically compromised patients. Insufficient / inconsistent cough response to expel penetrated material / laryngotracheal aspiration with very weak cough response noted. Very prominent and atypical gap between the lingual base and posterior pharyngeal wall. Patient additionally appears to be malnourished / very underweight upon subjective assessment, would assume that the Patient has exhibited difficulties with deglutition for longer than the stated period ( starting earlier this week). Trials of more viscous textures / solid textures held due to significance of pharyngeal involvement, high likelihood of continual aspiration, and higher risk of asphyxiation. Patient noted to initially SILENTLY aspirate with thin liquids with continual aspiration leading to overt reaction, with clinical assessment at bedside relying on identification of classic overt signs and symptoms of aspiration somewhat unreliable. RECOMMENDATIONS: Cannot recommend advancement to a PO diet at this time; will likely require discussion regarding alternative means of nutrition. Patient requires intensive skilled speech-language intervention targeting continued diet texture management ; with considerations for training and implementation of recommended oropharyngeal strengthening exercises to facilitate improved oropharyngeal strength and coordination, though prognosis is uncertain, as no clear etiology or preferred practice pattern is present to account for the Patients severe dysphagia. Patient is clearly at high risk for malnutrition and dehydration with NPO status or with resumption of PO intake if non-compliant. ADDITIONAL COMMENTS/RECOMMENDATIONS: Results and recommendations were discussed with the Patient immediately following MBS completion, with the Patient verbalizing understanding and agreement with all recommendations and education provided. IMAGE COUNT: [id number]
--- NOTE | 2017-12-28 14:36 | PCM.PROGNOTE ---
Patient Problems: Active and Suspected Problems (Last Updated 12/14/17 @ 17:06 by Guillermina Vincent DO) Dysphagia (Acute) Sinusitis (Acute) Subjective: Patient seen and examined. Denies further difficulty swallowing or painful swallowing. Patient feels sinus/nasal congestion has improved since yesterday. Denies fever, chills. Denies shortness of breath. No other complaints at this time. - Physical Exam General: Alert, Oriented x3, Cooperative, No apparent distress HEENT: Atraumatic, PERRLA, EOMI, Normocephalic Neck: Supple, No JVD, Negative Carotid Bruits Lungs: Diminished, Rhonchi - Right upper and right lower lobe Cardiovascular: Normal S1, Normal S2, Tachycardic, - - Atrial fibrillation Abdomen: Bowel Sounds Present, Soft, Non Tender, Non-Distended Extremities: No clubbing, No cyanosis, No edema, Capillary Refill Less than 3 Seconds Skin: No rashes, No breakdown Musculoskeletal: No Tenderness to Palpation of Joints or Extremities Neurological: Cranial nerves II-XII grossly intact, Neuro grossly intact Psych/Mental Status: Normal Affect, Appropriate Vital Signs Temp Pulse Resp BP Pulse Ox 98.1 F 108 H 20 H 143/94 H 100 12/28/17 10:35 12/28/17 12:30 12/28/17 10:35 12/28/17 10:35 12/28/17 10:35 Oxygen Flow Rate (L/min) 2 Oxygen Delivery Method Nasal Cannula Intake and Output for Last 24 Hours 12/26/17 12/27/17 12/28/17 23:59 23:59 23:59 Intake Total 365 / 1499 2258 / 2258 Balance 365 / 1499 2258 / 2258 Laboratory Tests Past 24 Hrs 12/28/17 12/28/17 12/28/17 05:20 05:20 05:20 WBC 7.4 RBC 4.70 Hgb 12.2 Hct 39.2 MCV 83.4 MCH 26.0 L MCHC 31.1 L RDW 17.6 H RDW Differential 53.8 H Plt Count 122 L MPV 9.7 Sodium 141 Potassium 3.3 L Chloride 105 Carbon Dioxide 28.0 Anion Gap 8 BUN 4 L Creatinine 0.35 L Estim Creat Clear Calc 35.53 Est GFR (MDRD) Af Amer 237 Est GFR (MDRD) Non-Af 196 BUN/Creatinine Ratio 11.6 Glucose 92 Hemoglobin A1c 6.0 Calcium 7.6 L POC Glucose 12/28/17 12/28/17 12/27/17 06:48 03:42 23:04 POC Glucose 78 98 100 12/27/17 17:37 POC Glucose 89 Medical Necessity - Tobacco Use Smoking Status: Never smoker Assessment/Plan Active and Suspected Problems (Last Updated 12/14/17 @ 17:06 by Guillermina Vincent DO) Dysphagia (Acute) Sinusitis (Acute) 1. Acute dysphagia and odynophagia secondary to acute sinusitis with copious amount of purulent postnasal drainage-patient underwent EGD due to initial suspicion for fungal esophagitis. EGD showed upper airway versus nasal infection with postnasal purulent drainage. Esophageal biopsies sent for culture pathology. Fluid was aspirated from oropharynx for culture as well. EGD also noted severe gastritis. Continue IV Protonix 40 mg twice daily. Infectious disease consulted. Culture is recurrently positive for MRSA and Klebsiella pneumoniae. Patient has multiple allergies and oral regimen is limited. Patient will require long course of IV vancomycin as outpatient. Continue IV vancomycin and IV Unasyn pending culture. Preliminary culture showing gram-positive and gram-negative organism. ENT consulted. Spoke with Dr. Boateng who has performed Bradshaw luck procedure and right partial ethmoidectomy with maxillary antrostomy in 2011. Dr[address] Boateng recommends continuing with course of antibiotics and following up in office to discuss further surgical intervention. CT of the sinus showed a sinusitis, nasal septal deviation towards the left side of the midline. Patient remains n.p.o. pending video swallow. Patient will be stable for discharge with further antibiotic therapy when able to tolerate oral intake. At this time she denies swallowing difficulty or painful swallowing. 2. Chronic hypoxic respiratory failure-continue supplemental oxygen to maintain O2 at or above 90%. 3. COPD-no acute exacerbation. Continue albuterol and budesonide aerosol. Follows with Dr. Angel. 4. Obstructive sleep apnea-continue BiPAP. 5. 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 6. Chronic bronchitis/bronchiectasis- Follows with Dr. Angel. 7. Chronic atrial fibrillation-continue metoprolol, Cardizem and Eliquis. 8. Hypothyroidism-continue home Synthroid regimen when able to tolerate oral intake. Continue IV Synthroid 45 mcg. 9. History of Takotsubo Cardiomyopathy-Echo August 2016 with EF 45-50%. 10. Severe protein calorie malnutrition-BMI 16.2. Nutrition consulted. Ensure supplementation when patient is able to tolerate oral intake. DVT prophylaxis-Dorothy Walters. This patient was seen by TATY Posada under the supervision of Dr. Vincent.
--- NOTE | 2017-12-28 14:54 | CHAPLAIN ---
Type of Pastoral Visit _x__ Initial Visit ___ Follow-up Visit ___ On-call Visit ___ General Patient Visit ___ Spiritual Assessment ___ Family Conference ___ Bereavement ___ Rapid Response ___ Code Blue ___ Other (describe below) Pastoral Care Referral From _x__ Patient ___ Family ___ Nurse ___ Physician ___ Senior Buyer Planner ___ Help Desk Engineer ___ Other (describe below) Sacrament/Intervention _x__ Active listening ___ Anointing ___ Restorationist ___ Bereavement ___ Communion ___ Henrietta exploration ___ ___ Life review _x__ Prayer ___ Reconciliation ___ Sacrament of Sick _x__ Supportive presence ___ Wedding ___ Other (describe below) Pastoral Comments family members were in room with patient; pt said she is better than yesterday but they still don't know what this is; pt says that her family does so much for me; pt accepted a prayer
--- NOTE | 2017-12-28 15:07 | CASEMGMT ---
Per ID, pt will need to have 4-6 weeks of iv antibx or have a procedure with [facility] to 'clean out' sinuses. Per Matthew KATE, Dr. Boateng will not be performing procedure at this time and pt will need to go home on the iv antibx. Pt has had [facility] in the past and per Eli at [facility], they would be able to take pt at this time. Unable to fax referral to [facility] at this time due to not having script from Dr. Landa. Referral to be sent in am once Dr. Landa rounds. Elaina LUA CM updated on all at this time. Mike LUA CM
[2017-12-28 17:25] LABS: Bedside Glucose 78 mg/dL (70-110)
--- NOTE | 2017-12-28 17:30 | RAD_ITS ---
XR Chest 1 View INDICATION: PICC LINE PLACEMENT COMPARISON: December 26, 2017 TECHNIQUE: Portable chest x-ray FINDINGS: The right-sided PICC line is seen in place with catheter extending to the SVC. The heart size is enlarged. Pulmonary vascularity is prominent. Lungs are severely hyperinflated with coarsened interstitial markings. A large bulla occupies the right upper lung field, unchanged from prior exam. Severe associated scarring is noted in the right suprahilar region and at the right lung base. Bilateral bronchiectasis are noted, right markedly worse than left. RAD/CXR for Line Placement IMPRESSION: Right-sided PICC line appears properly positioned. Centrilobular emphysema. Severe bronchiectasis and scarring throughout the right lung with right apical bullae or contained pneumothorax, unchanged compared to September 2017. Superimposed infection or malignancy is difficult to exclude. at 1823 Reported and signed by: Colette Gomez MD Electronically Signed: Colette Gomez MD at 18:21 EDT Tel , Service support ,
--- NOTE | 2017-12-28 18:52 | NURSING ---
Reviewed and agreed on all charting with Kailyn Mccoy RN
[2017-12-28] MEDS: dilTIAZem 25 MG/5 ML Vial 15 MG IV BOLUS (20:26)
[2017-12-28 21:36] LABS: Bedside Glucose 199 mg/dL (70-110)
[2017-12-29] VITALS (40 sets, daily range): BP systolic 115–150; BP diastolic 65–97; PULSE 83–112; RESP 13–20; TEMP 36.1–37.1; O2SAT 98–100
[2017-12-29] MEDS: 0.9% NaCl Peripheral Flush Adult/Peds IV ×4 (00:10→17:48)
[2017-12-29] MEDS: Metoprolol Tartrate 5 MG/5 ML Vial IV ×4 (00:10→17:47)
[2017-12-29] MEDS: LORazepam 2 MG/ML Syringe 0.5 MG IV ×2 (00:11→17:52)
[2017-12-29 05:35] LABS: Bedside Glucose 163 mg/dL (70-110)
[2017-12-29 05:52] LABS: ALB/GLOB Ratio 0.7 RATIO (0.9-2.4); AST(SGOT) 15 U/L (15-37); Alanine Aminotransfer ALT/SGPT 27 U/L (13-56); Albumin, Serum 2.3 g/dL (3.2-5.0); Alkaline Phosphatase 181 U/L (45-117); Anion Gap 4 (5-15); BUN 7 mg/dL (7-18); BUN/Creat Ratio 27.5 RATIO (10-20); Calcium,Total 7.5 mg/dL (8.5-10.1); Chloride 100 mmol/L (98-107); Cholesterol 137 mg/dL (200); Creatinine, Serum 0.26 mg/dL (0.55-1.02); EST Glomerular Filtration Rate 279 mL/min (>60); Est Glom Filt Rate - Afr Amer 337 mL/min (>60); Estimated Creatinine Clearance 35.53 ml/min; Globulin 3.4 g/dL (2.2-4.2); Glucose 156 mg/dL (74-106); High Density Lipoprotein 40 mg/dL; Magnesium 1.7 mg/dL (1.6-2.6); Potassium 3.4 mmol/L (3.5-5.1); Protein, Total 5.7 g/dL (6.4-8.2); Sodium Level 140 mmol/L (136-145); Triglycerides 80 mg/dL; Very Low Density Lipoprotein 16 mg/dL (5-40)
[2017-12-29] MEDS: Budesonide Respules 0.5 MG/2 ML AMPUL.NEB. 0.25 MG INHALATION ×2 (07:09→19:30)
[2017-12-29] MEDS: Albuterol 2.5 MG/3 ML VIAL.NEB. INHALATION ×4 (07:09→19:30)
[2017-12-29] MEDS: Fluticasone 0.05% 1 SPRAY NASAL.SRY 2 SPRAY NASAL (09:22)
--- NOTE | 2017-12-29 09:41 | PCM.RX.CS ---
Consult Pharmacy has been consulted to manage selected antiobiotic: Vancomycin Type of Consult: Follow-up Suspected Infection: Other - SINUS INFECTION Prior Doses of Antibiotics Received/Current Regimen: VANCOMYCIN 750MG IV Q12HRS: 12/28/17 @ 0936, 2038 Labs: Sodium 140 mmol/L (136-145) 12/29/17 05:15 Potassium 3.4 mmol/L (3.5-5.1) L 12/29/17 05:15 Chloride 100 mmol/L (98-107) 12/29/17 05:15 Carbon Dioxide 36.0 mmol/L (21.0-32.0) H 12/29/17 05:15 Anion Gap 4 (5-15) L 12/29/17 05:15 BUN 7 mg/dL (7-18) 12/29/17 05:15 Creatinine 0.26 mg/dL (0.55-1.02) L 12/29/17 05:15 Est GFR (MDRD) Af Amer 337 mL/min (>60) 12/29/17 05:15 Est GFR (MDRD) Non-Af 279 mL/min (>60) 12/29/17 05:15 BUN/Creatinine Ratio 27.5 RATIO (10-20) H 12/29/17 05:15 Glucose 156 mg/dL (74-106) H 12/29/17 05:15 Vancomycin Trough 5.0 ug/mL (5.0-15.0) 12/29/17 08:30 Weight used for dosin.6 kg Goal Trough: 10-15 mcg/mL Pharmacy Plan for Drug Dosing: Pharmacy Service will continue to monitor and adjust dosing as required. The patient's trough came back which resulted in a value of 5 (drawn 12hrs from last dose given). Will increase the vancomycin trough to 1g IV Q12hrs. The patient was previously on this on her last admission and had therapeutic troughs on this dose. Trough rescheduled for 12/31/17 @0830, prior to 4th dose of new regimen. Will continue to follow
--- NOTE | 2017-12-29 10:16 | PCM.PN.ID ---
Patient Problems: Active and Suspected Problems (Last Updated 12/14/17 @ 17:06 by Guillermina Vincent DO) Dysphagia (Acute) Sinusitis (Acute) Subjective: Feeling better, still heavy drainage from sinuses. No fever, no n/v/d. - Physical Exam General: Alert, Cooperative Lungs: Clear to auscultation, Normal air movement Cardiovascular: Regular rate, Regular Rhythm Abdomen: Soft, Non Tender, Non-Distended Extremities: No edema Skin: No rashes Vital Signs Temp Pulse Resp BP Pulse Ox 98.8 F 100 14 116/69 100 12/29/17 08:00 12/29/17 09:00 12/29/17 09:00 12/29/17 09:00 12/29/17 09:00 Oxygen Flow Rate (L/min) 2 Oxygen Delivery Method Nasal Cannula Weight: 46.9 kg Intake and Output for Last 24 Hours 12/27/17 12/28/17 12/29/17 23:59 23:59 23:59 Intake Total 365 / 1499 2786 / 2786 1851 / 1851 Output Total 500 / 500 Balance 365 / 1499 2786 / 2786 1351 / 1351 Laboratory Tests Past 24 Hrs 12/28/17 12/29/17 12/29/17 05:20 05:15 08:30 Sodium 140 Potassium 3.4 L Chloride 100 Carbon Dioxide 36.0 H Anion Gap 4 L BUN 7 Creatinine 0.26 L Estim Creat Clear Calc 35.53 Est GFR (MDRD) Af Amer 337 Est GFR (MDRD) Non-Af 279 BUN/Creatinine Ratio 27.5 H Glucose 156 H Hemoglobin A1c 6.0 Calcium 7.5 L Phosphorus 2.0 L Magnesium 1.7 Total Bilirubin 0.40 AST 15 ALT 27 Alkaline Phosphatase 181 H Total Protein 5.7 L Albumin 2.3 L Globulin 3.4 Albumin/Globulin Ratio 0.7 L Triglycerides 80 Cholesterol 137 LDL Cholesterol 81 VLDL Cholesterol 16 HDL Cholesterol 40 Vancomycin Trough 5.0 POC Glucose 12/29/17 12/28/17 12/28/17 05:31 21:02 17:22 POC Glucose 163 H 199 H 78 Medical Necessity - Tobacco Use Smoking Status: Never smoker Route of nutrition/ use of supplements: [] Nutritional Intake: [] IV Site: [] Hernandez Catheter: [] - Assessment/Plan Antibiotics: [] Assessment/Plan: [] Active and Suspected Problems (Last Updated 12/14/17 @ 17:06 by Guillermina Vincent DO) Dysphagia (Acute) Sinusitis - cxs recurrently (+) for MRSA and K.pneumo. Multiple admissions in past year with infection with these organisms. PO abx options for MRSA are limited based on her allergies. Options to try and eliminate this infection would be source control with some sort of ENT procedure vs long course of iv vanc as an outpatient. For now, will continue vanc/unasyn while cxs pending. will follow
--- NOTE | 2017-12-29 10:48 | CON.PCM_ITS ---
Reason for Consult Date of Consultation: 12/29/17 Reason for Consultation: DYSPHAGIA History of Present Illness: The patient is a 72 year old F with aspergillosis, sp lung resection ', multiple other hospitalizations, since tuesday three days ago has had painful swallowing and abnormal barium swallow eval, no other neuro symptoms, no speech/ language/ or focal weakness of vision changes. The patient is a 72 year old F medical problems including chronic respiratory failure with hypoxemia on supplemental oxygen, depression, NEPTALI, 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 She presented to the emergency room due to difficulty and painful swallowing. Severe pain trying to swallow saliva liquids or solids. She was just recently discharged from the hospital for pneumonia, acute COPD/bronchiectasis exacerbation, IV antibiotics and IV steroids and was discharged on p.o. steroids. Patient reports no new cough, worsening shortness of breath, fever or chills. 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) Chronic respiratory failure with hypoxia (Chronic) NEPTALI (obstructive sleep apnea) (Chronic) PND (paroxysmal nocturnal dyspnea) (Chronic) Bronchiectasis (Chronic) Pulmonary hypertension (Chronic) Takotsubo cardiomyopathy (Chronic) EF in August of 2016 was 45-50%, previously 20% Chronic atrial fibrillation (Chronic) Hypomagnesemia (Chronic) Recheck magnesium in 48 hours Allergies sulfamethoxazole [From Bactrim] Allergy (Verified 12/26/17 11:28) Hives PT STATES NOT ALLERGIC tetracycline Allergy (Verified 12/26/17 11:28) Hives trimethoprim [From Bactrim] Allergy (Verified 12/26/17 11:28) Hives verapamil Allergy (Verified 12/26/17 11:28) Unknown itraconazole Adverse Reaction (Verified 12/26/17 11:28) chest tightness w/ upper and loewr extremity weakness warfarin [From Coumadin] Adverse Reaction (Verified 12/26/17 11:28) gi bleed SODIUM PENTATHOL Allergy (Uncoded 12/26/17 11:28) jaundice/hives JAUNDICE Home Medications: Ambulatory Orders Medication Instructions Recorded Multivitamin [Daily Multiple 1 ea PO DAILY 08/04/15 Vitamin] Cholecalciferol (Vitamin D3) 2,000 unit PO DAILY 10/30/16 [Vitamin D3] Albuterol Inhaler [Ventolin Hfa] 1 - 2 puff INHALATION Q2H PRN PRN 11/21/16 #1 inhaler Formoterol Fumarate [Perforomist] 20 mcg INHALATION BID 04/18/17 Guaifenesin [Mucinex] 1,200 mg PO BID PRN 04/18/17 Sertraline HCl [Zoloft] 50 mg PO DAILY 04/18/17 albuterol sulfate 2.5 mg/3 mL 2.5 mg INHALATION Q4H PRN ml 08/31/17 (0.083 %) solution for nebulization lorazepam 0.5 mg tablet 0.5 mg PO DAILY PRN PRN tab 08/31/17 Apixaban [Eliquis] 2.5 mg PO BID 09/08/17 Budesonide [Pulmicort] 0.25 mg IH BID 09/08/17 Carvedilol [Coreg (Beta El)] 6.25 mg PO BID 09/08/17 Ferrous Gluconate 325 mg PO BIDCM 09/08/17 Levothyroxine [Synthroid] 88 mcg PO DAILY@0600 09/08/17 Magnesium Oxide [Mag-Ox 400] 400 mg PO BIDCM 09/08/17 traZODone [Desyrel] 50 mg PO QHS 09/08/17 fluticasone 50 mcg/actuation nasal 2 spray INTRANASAL DAILY #16 g 11/28/17 spray,suspension Methadone HCl 5 mg PO BID 12/06/17 Calcium Carb/Vitamin D [Os-Zach 1 tablet PO BIDCM 12/26/17 500MG + D] Diltiazem CD [Cardizem CD] 120 mg PO QHS 12/26/17 Diltiazem CD [Cardizem CD] 180 mg PO DAILY 12/26/17 Nystatin 500,000 unit PO TID 12/26/17 Surgical History: cholecystectomy, hysterectomy, - Psychiatric History: Anxiety BUDGET REPORT CLERK History: No pertinent BUDGET REPORT CLERK history Smoking Status: Never smoker - *Family History Maternal History Items: No pertinent history Paternal History Items: Cancer Review of Systems Constitutional: Reports: Weight Change. Denies: Chills, Fever Eyes: Denies: Blurred vision, Double vision HEENT: Reports: Difficulty Swallowing, Dysphasia. Denies: Ear Pain, Eye Pain, Head Aches, Hearing Changes, Sinus Congestion, Sinus Drainage Cardiovascular: Denies: Chest Pain, Palpitations Respiratory: Denies: Cough, Shortness of breath at rest, Sputum production Gastrointestinal: Denies: Abdominal Pain, Nausea, Vomiting Genitourinary: Denies: Dysuria Musculoskeletal: Denies: Joint Pain, Joint Tenderness Skin: Denies: Rash, Wounds Neurological: Reports: Difficulty swallowing. Denies: Balance problems, Blurred vision, Double vision, Change in Speech, Slurred speech, Confusion, Focal weakness, Headaches, Incoordination, Numbness, Tingling, Tremor, Seizures Psychiatric: Denies: Anxiety, Depression, Homicidal Ideations, Suicidal Ideations Hematologic/ Lymphatic: Denies: Easy Bruising, Easy Bleeding Patient Problems: Active and Suspected Problems (Last Updated 12/14/17 @ 17:06 by Guillermina Vincent DO) Dysphagia (Acute) Sinusitis (Acute) - Physical Exam General: Alert, Oriented x3, Cooperative HEENT: Atraumatic, PERRLA, EOMI, Normocephalic Neck: Supple, No JVD, Negative Carotid Bruits Lungs: Clear to auscultation, Normal air movement Cardiovascular: Regular rate, No murmurs Abdomen: Bowel Sounds Present, Soft, Non Tender Extremities: No edema, Capillary Refill Less than 3 Seconds Skin: No rashes, No breakdown Musculoskeletal: No Tenderness to Palpation of Joints or Extremities Neurological: Cranial nerves II-XII grossly intact Psych/Mental Status: Normal Affect, Appropriate Vital Signs Temp Pulse Resp BP Pulse Ox 37.1 C 100 18 115/72 100 12/29/17 08:00 12/29/17 10:00 12/29/17 10:00 12/29/17 10:12/29/17 10:00 Oxygen Flow Rate (L/min) 2 Oxygen Delivery Method Nasal Cannula Weight: 46.9 kg Intake and Output for Last 24 Hours 12/27/17 12/28/17 12/29/17 23:59 23:59 23:59 Intake Total 365 / 1499 2786 / 2786 1851 / 1851 Output Total 500 / 500 Balance 365 / 1499 2786 / 2786 1351 / 1351 Laboratory Tests Past 24 Hrs 12/28/17 12/29/17 12/29/17 05:20 05:15 08:30 Sodium 140 Potassium 3.4 L Chloride 100 Carbon Dioxide 36.0 H Anion Gap 4 L BUN 7 Creatinine 0.26 L Estim Creat Clear Calc 35.53 Est GFR (MDRD) Af Amer 337 Est GFR (MDRD) Non-Af 279 BUN/Creatinine Ratio 27.5 H Glucose 156 H Hemoglobin A1c 6.0 Calcium 7.5 L Phosphorus 2.0 L Magnesium 1.7 Total Bilirubin 0.40 AST 15 ALT 27 Alkaline Phosphatase 181 H Total Protein 5.7 L Albumin 2.3 L Globulin 3.4 Albumin/Globulin Ratio 0.7 L Triglycerides 80 Cholesterol 137 LDL Cholesterol 81 VLDL Cholesterol 16 HDL Cholesterol 40 Vancomycin Trough 5.0 POC Glucose 12/29/17 12/28/17 12/28/17 05:31 21:02 17:22 POC Glucose 163 H 199 H 78 Assessment/Plan Active and Suspected Problems (Last Updated 12/14/17 @ 17:06 by Guillermina Vincent DO) Dysphagia (Acute) Sinusitis (Acute) dysphagia, likely due to infection, sx improved pt defers mri check ct brain, non-contrast if pt concurs, pt considering
[2017-12-29 11:35] LABS: Bedside Glucose 175 mg/dL (70-110)
--- NOTE | 2017-12-29 12:07 | PN_ITS ---
Patient Problems: Active and Suspected Problems (Last Updated 12/14/17 @ 17:06 by Guillermina Vincent DO) Dysphagia (Acute) Sinusitis (Acute) Subjective: Day #4 antibiotics Unasyn and vancomycin. Afebrile since admission. Heart rate is elevated into the low 100s today since approximately 7 AM. Blood pressure is within normal limits. She is 100% saturated on 2 L nasal cannula. Fluid balance since admission is +[phone]. Urine output has not been accurate. All lab was personally reviewed. Potassium is low at 3.4 today and the CO2 is increased at 36, up from 28 on 12/28/2017. Fasting blood sugar is 156 today since being started on TPN. Phosphorus is low at 2.0 and the mag is 1.7. Sputum is growing Klebsiella pneumoniae which is sensitive to Unasyn and staph aureus-sensitivities pending She is more alert today and tells me she is feeling a little better. The ST thinks she may have a little more R facial droop today than yesterday. Objective: - Physical Exam General: Alert, Oriented x3, Cooperative, more alert today and able to converse better with me. HEENT: Atraumatic, PERRLA, EOMI, Normocephalic Neck: Supple, No JVD, Negative Carotid Bruits Lungs: Diminished non the R side - has had a prior RUL lobectomy due to aspergillosis Cardiovascular: Normal S1, Normal S2, mildly Tachycardic, - - Atrial fibrillation, no gallop Abdomen: Bowel Sounds Present, Soft, Non Tender, Non-Distended, scaphoid Extremities: No clubbing, No cyanosis, No edema, Capillary Refill Less than 3 Seconds Skin: No rashes, No breakdown Musculoskeletal: No Tenderness to Palpation of Joints or Extremities, can easily palpate her ribs and the length of the clavicle. Neurological: Cranial nerves II-XII grossly intact, Neuro grossly intact.....I did not initially appreciate a R facial droop but on a second look after talking with the ST There is a slight R facial droop. Psych/Mental Status: Normal Affect, Appropriate - Physical Exam Vital Signs Temp Pulse Resp BP Pulse Ox 98.8 F 112 H 16 133/81 H 100 12/29/17 08:00 12/29/17 11:35 12/29/17 11:00 12/29/17 11:00 12/29/17 11:00 Oxygen Flow Rate (L/min) 2 Oxygen Delivery Method Nasal Cannula Weight: 103 lb 6.349 oz Intake and Output for Last 24 Hours 12/27/17 12/28/17 12/29/17 23:59 23:59 23:59 Intake Total 365 / 1499 2786 / 2786 3086 / 3086 Output Total 800 / 800 Balance 365 / 1499 2786 / 2786 2286 / 2286 Laboratory Tests Past 24 Hrs 12/28/17 12/29/17 12/29/17 05:20 05:15 08:30 Sodium 140 Potassium 3.4 L Chloride 100 Carbon Dioxide 36.0 H Anion Gap 4 L BUN 7 Creatinine 0.26 L Estim Creat Clear Calc 35.53 Est GFR (MDRD) Af Amer 337 Est GFR (MDRD) Non-Af 279 BUN/Creatinine Ratio 27.5 H Glucose 156 H Hemoglobin A1c 6.0 Calcium 7.5 L Phosphorus 2.0 L Magnesium 1.7 Total Bilirubin 0.40 AST 15 ALT 27 Alkaline Phosphatase 181 H Total Protein 5.7 L Albumin 2.3 L Globulin 3.4 Albumin/Globulin Ratio 0.7 L Triglycerides 80 Cholesterol 137 LDL Cholesterol 81 VLDL Cholesterol 16 HDL Cholesterol 40 Vancomycin Trough 5.0 POC Glucose 12/29/17 12/29/17 12/28/17 11:27 05:31 21:02 POC Glucose 175 H 163 H 199 H 12/28/17 17:22 POC Glucose 78 Medical Necessity - Tobacco Use Smoking Status: Never smoker Assessment/Plan Active and Suspected Problems (Last Updated 12/14/17 @ 17:06 by Guillermina Vincent DO) Dysphagia (Acute) Sinusitis (Acute) Impressions 1. Dysphagia - profound. Etiology? With a Right facial droop this may be due to a CVA. I reviewed Dr. Piper's consult and pt still resistant to MRI so will order a CT brain without contrast. Pt is agreeable to a PEG tube. Dr. Vera has been consulted. 2. Sinusitis - DC aspirated from the posterior pharynx by Dr. Chowdary at the time of EGD and it is growing Klebsiella pneumoniae and staph aureus. 3. Severe gastritis, no esophageal pathology with EGD - started on Protonix IV 4. Chronic atrial fibrillation 5. Chronic anticoagulation with Eliquis 6. COPD 7. Chronic respiratory failure with hypoxemia 8. Obstructive sleep apnea 9. Severe malnutrition 10. 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 Pulmonary hypertension 12. Bronchiectasis 13. Hypokalemia 14. Metabolic alkalosis 15. Hyperglycemia due to TPN.....started with only 10% glucose and 4.25% AA to prevent refeeding S 16. Hypophosphatemia CTB ordered. Appreciate Dr. Piper's input Consult Dr. Vera for a possible PEF tube Supplement the phos and the potassium Recheck the lab in the AM DC the Eliquis - if no PEG in the AM will start heparin infusion or Lovenox although the creat clearance is only 35 today and will more than likely need to use Heparin Reviewed the private branch exchange operator's recommendations for TPN.....will likely add lipids tomorrow....Would rather utilize the GI tract but, with the profound dysphagia can not feed orally....if can not get a PEG consider inserting a duotube Code Visit Inpatient E&M: 61750 [facility] L3
[2017-12-29] MEDS: Ondansetron 4 MG/2 ML Vial IV (12:18)
--- NOTE | 2017-12-29 15:47 | CASEMGMT ---
Social Work Met with pt in room and introduced self and role of SW. Pt lives at home with her spouse who she states he provides a lot of assistance to her. SW spoke with pt regarding d/c plans and presented option of SNF placement vs home health. Pt prefers to return home upon d/c but was accepting of NH list and did allow SW to explained medicare coverage in SNF. SW will remain available should further needs arise. MERCEDES Santa
[2017-12-29] MEDS: Fat Emulsions 20% 250 ML IV (15:56)
--- NOTE | 2017-12-29 17:56 | CT_ITS ---
CT Head or Brain W/O Contrast INDICATION: RT FACIAL DROOP AND DYSPHAGIA COMPARISON: October 27, 2015 TECHNIQUE: Noncontrast axial CT examination of the brain. Radiation dose optimization technique applied. FINDINGS: There is ill-defined focal hypodensity in the left high frontal cortex and subcortical white matter, new compared to prior study from 2006. The ventricular system is normal in size and symmetric. Right basal ganglia chronic lacunar infarct is noted. Wallace-white matter junction is otherwise distinct. There is no evidence of acute intracranial hemorrhage, mass effect, midline shift, or abnormal extra-axial collection. The calvarium is intact. There is complete opacification of the maxillary sinuses and partial opacification of the ethmoid sinuses and frontal sinus. Mastoid air cells and middle ear cavities are clear. CT/Brain/Head without Contrast IMPRESSION: Left high frontal cortical and white matter low density, presumably encephalomalacia from prior ischemia. This finding is new compared to 2006. MRI may be helpful if further evaluation is desired. Chronic right basal ganglia lacunar infarct. No evidence of acute intracranial hemorrhage or mass effect. Paranasal sinus disease at 2137 Reported and signed by: Colette Gomez MD Electronically Signed: Colette Gomez MD at 21:35 EDT Tel , Service support ,
[2017-12-30] VITALS (41 sets, daily range): BP systolic 109–148; BP diastolic 62–93; PULSE 86–111; RESP 14–25; TEMP 36.4–37.2; O2SAT 99–100; BMI 16.5
[2017-12-30] MEDS: Ondansetron 4 MG/2 ML Vial IV ×3 (00:18→21:59)
[2017-12-30] MEDS: Metoprolol Tartrate 5 MG/5 ML Vial IV ×5 (00:18→23:39)
[2017-12-30] MEDS: 0.9% NaCl Peripheral Flush Adult/Peds IV ×3 (00:19→21:59)
[2017-12-30 05:49] LABS: Absolute Lymphocyte Count 0.94 X10^3/ul (0.83-4.51); Absolute Neutrophil Count 4.2 X10^3/uL (2.0-7.7); Basophil# 0.01 X10^3/uL; Basophil% 0.2 % (0-1); Eosinophil# 0.06 X10^3/uL; Hematocrit 34.5 % (37-47); Hemoglobin 10.6 g/dl (12.0-15.0); Lymphocyte # 0.94 X10^3/ul (4.0); Lymphocyte % 16.3 % (19-41); Mean Corp Hgb Conc 30.7 g/gl (32-36); Mean Corpuscular Hgb 26.1 pg (27.0-32.0); Mean Platelet Vol. 10.5 fl (6.2-12.0); Monocyte# 0.57 X10^3/uL; Monocyte% 9.9 % (0-10); Neutrophil # 4.16 X10^3/uL (2.7-7.7); Neutrophil % 72.4 % (47-70); Platelet Count 118 K/mm3 (150-450); RBC Distribution Width CV 17.1 % (11.6-14.6); RBC Distribution Width SD 52.6 fl (35.1-43.9); Red Blood Count 4.06 M/mm3 (4.2-5.4); White Blood Count 5.8 K/mm3 (4.4-11.0)
[2017-12-30 05:50] LABS: POSITIVE COUNT NO; POSITIVE DIFFERENTIAL NO; POSITIVE MORPHOLOGY NO
[2017-12-30 06:10] LABS: Anion Gap 4 (5-15); BUN 11 mg/dL (7-18); Calcium,Total 7.7 mg/dL (8.5-10.1); Chloride 103 mmol/L (98-107); Creatinine, Serum 0.28 mg/dL (0.55-1.02); EST Glomerular Filtration Rate 256 mL/min (>60); Est Glom Filt Rate - Afr Amer 309 mL/min (>60); Estimated Creatinine Clearance 36.54 ml/min; Glucose 125 mg/dL (74-106); Magnesium 1.8 mg/dL (1.6-2.6); Phosphorus 2.7 mg/dL (2.5-4.9); Potassium 4.2 mmol/L (3.5-5.1); Sodium Level 139 mmol/L (136-145)
[2017-12-30 06:55] LABS: Bedside Glucose 143 mg/dL (70-110)
--- NOTE | 2017-12-30 07:09 | PN_ITS ---
Patient Problems: Active and Suspected Problems (Last Updated 12/14/17 @ 17:06 by Guillermina Vincent DO) Dysphagia (Acute) Sinusitis (Acute) Subjective: Remains afebrile. Vital signs are stable. Fluid balance since admission is +[id number]. Urine output on 419 was 1475. Lab today shows a normal white blood cell count at 5.8 with 72% neutrophils. Hemoglobin is 10.6 and the decrease is likely secondary to hemodilution. Leaflets today are 118,000 and decreasing. Electrolytes are within normal limits and the BUN is 11 with a creatinine of 0.28. Mag and phosphorus are both normal. Blood sugars are all less than 200. CT brain shows a hypodense area in the left frontal cortex however the acuity of this is not known. It was not present on a CT scan done in 2005 and we have no recent CT scans. Objective: - Physical Exam General: Alert, Oriented x3, seen post op and she is nauseated and having a lot of pain around the PEG HEENT: Atraumatic, PERRLA, EOMI, Normocephalic, pale Neck: Supple, No JVD, Negative Carotid Bruits Lungs: Diminished, Rhonchi - Right upper and right lower lobe much better air exchange in the left than the R Cardiovascular: Normal S1, Normal S2, Tachycardic, - - Atrial fibrillation Abdomen: Bowel Sounds Present, Soft, Non Tender, Non-Distended, bandage around the PEG is dry Extremities: No clubbing, No cyanosis, No edema, Capillary Refill Less than 3 Seconds Skin: No rashes, No breakdown Musculoskeletal: No Tenderness to Palpation of Joints or Extremities Neurological: Cranial nerves II-XII grossly intact, Neuro grossly intact Psych/Mental Status: Normal Affect, Appropriate - Physical Exam Vital Signs Temp Pulse Resp BP Pulse Ox 98.2 F 86 22 H 125/74 H 100 12/30/17 03:00 12/30/17 07:00 12/30/17 07:00 12/30/17 07:00 12/30/17 07:00 Oxygen Flow Rate (L/min) 2 Oxygen Delivery Method Nasal Cannula Weight: 102 lb 11.767 oz Intake and Output for Last 24 Hours 12/28/17 12/29/17 12/30/17 23:59 23:59 23:59 Intake Total 2786 / 2786 3886 / 3886 2237 / 2237 Output Total 1475 / 1475 1900 / 1900 Balance 2786 / 2786 2411 / 2411 337 / 337 Laboratory Tests Past 24 Hrs 12/29/17 12/30/17 12/30/17 08:30 05:12 05:12 WBC 5.8 RBC 4.06 L Hgb 10.6 L Hct 34.5 L MCV 85.0 MCH 26.1 L MCHC 30.7 L RDW 17.1 H RDW Differential 52.6 H Plt Count 118 L MPV 10.5 Immature Gran % (Auto) 0.200 Neut % (Auto) 72.4 H Lymph % (Auto) 16.3 L [place] % (Auto) 9.9 Eos % (Auto) 1.0 Baso % (Auto) 0.2 Absolute Neuts (auto) 4.2 Absolute Lymphs (auto) 0.94 Total Counted Not Reportable Sodium 139 Potassium 4.2 Chloride 103 Carbon Dioxide 32.0 Anion Gap 4 L BUN 11 Creatinine 0.28 L Estim Creat Clear Calc 36.54 Est GFR (MDRD) Af Amer 309 Est GFR (MDRD) Non-Af 256 BUN/Creatinine Ratio 40.0 H Glucose 125 H Calcium 7.7 L Phosphorus 2.7 Magnesium 1.8 Vancomycin Trough 5.0 POC Glucose 12/30/17 12/29/17 06:43 11:27 POC Glucose 143 H 175 H Medical Necessity - Tobacco Use Smoking Status: Never smoker Assessment/Plan Active and Suspected Problems (Last Updated 12/14/17 @ 17:06 by Guillermina Vincent, ) Dysphagia (Acute) Sinusitis (Acute) Impressions 1. Dysphagia - profound. Etiology? With a Right facial droop this may be due to a CVA. I reviewed Dr. Piper's consult and pt still resistant to MRI so will order a CT brain without contrast. Pt is agreeable to a PEG tube. Dr. Vera has been consulted. 2. Sinusitis - DC aspirated from the posterior pharynx by Dr. Chowdary at the time of EGD and it is growing Klebsiella pneumoniae and staph aureus. 3. Severe gastritis, no esophageal pathology with EGD - started on Protonix IV 4. Chronic atrial fibrillation 5. Chronic anticoagulation with Eliquis 6. COPD 7. Chronic respiratory failure with hypoxemia 8. Obstructive sleep apnea 9. Severe malnutrition 10. 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 Pulmonary hypertension 12. Bronchiectasis 13. Hypokalemia 14. Metabolic alkalosis 15. Hyperglycemia due to TPN.....started with only 10% glucose and 4.25% AA to prevent refeeding S 16. Hypophosphatemia 17. 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
--- NOTE | 2017-12-30 07:32 | CON.PCM_ITS ---
- Consult Date of Consult: 12/30/17 - Reason for Consult Chief Complaint: asked to see patient for placement of PEG History of Present Illness: 72 y/o WF presents with klebsiella pneumonia. Recent EGD findings - gastritis, chronic sinus drainage Has noted difficulty with swallowing Video swallowing function study on 12/28/17 reveals aspiration with swallowing, CT head - possible recent CVA Patient with malnutrition - presently on DREAD, requires PEG. Past Medical History: pulmonary hypertension chronic sinusitis chronic atrial fibrillation chronic anticoagulation on Eliquis COPD NEPTALI using CPAP bronchiectasis Past Surgical History: cholecystectomy hysterectomy right upper lobe pulmonary resection '14 Medications: albuterol pulmicort aerosol vitamin C diltiazem iron supplements flonase mucinex levothyroxine ativan prn lopressor pantoprazole Allergies: sulfamethoxazole tetracycline trimethoprim verapamil coumadin itraconazole sodium pentathol Social history: TOB use denies Lives with Review of Systems: General - malnourished Cardiovascular denies chest pain, chronic a fib, history of cards cath Pulmonary denies coughing up blood Gastrointestinal as per HPI, denies blood in stools, history of GIB due to coumadin Neurological hx of stroke Genitourinary denies blood in urine Hematological on eliquis for chronic afib Skin denies open non healing wounds Musculoskeletal has some back pain Endocrine denies diabetes Psychological denies hallucinations Physical examination: Vital signs Temp 98.6F RR 14 BP 113/63 HR 95 General WD/WN WF in no apparent distress, alert and oriented, not septic appearing HEENT Normocephalic. EOM intact with sclera clear. Neck is supple with no jugular venous distention noted. Trachea is midline. Lungs no labored breathing noted, such as retractions. No cough heard. Heart regular. Abdomen soft and benign. Normal bowel sounds Extremities no calf tenderness noted. . Genitourinary/Rectal deferred Skin normal skin integrity. Neurological non focal. Psychological normal affect, patient is calm and appropriate Impression: swallowing dysfunction with aspiration Discussion/Plan: I have discussed the above with the patient. I have offered the patient the procedure of placement of PEG tube. I have explained the procedure to the patient. I have counseled the patient as to the risks of the procedure, including but not limited to: infection, bleeding, injury to any blood vessels/nerves, scar tissue, injury to any intrabdominal organs, wound infections, complications of anesthesia, etc. the patient understands. She agrees to proceed I have answered all questions to the patient?s satisfaction and the patient has no further questions.
[2017-12-30] MEDS: Fluticasone 0.05% 1 SPRAY NASAL.SRY 2 SPRAY NASAL (10:01)
--- NOTE | 2017-12-30 11:06 | CASEMGMT ---
Addendum entered by Ivis Coley 12/30/17 13:18: Pt is still of the floor at this time. Mike LUA CM Original Note: This RN CM to room to speak with pt regarding discharge planning and pt is out of the dept getting PEG tube placed at this time. This RN CM will attempt again later. Mike LUA CM
--- NOTE | 2017-12-30 11:34 | NURSING ---
Report called to Endo and patient transported down at 1020.
--- NOTE | 2017-12-30 13:41 | NURSING ---
Returned from surgery, Patient alert and oriented. Dressing to abdomen D&I. No complaints of pain.
--- NOTE | 2017-12-30 14:07 | CASEMGMT ---
This RN CM to room to speak with pt and RN is at bedside completing care at this time. This RN CM will attempt to check back with pt tomorrow am. Mike RN THELMA
--- NOTE | 2017-12-30 14:25 | PCM.PROGNOTE ---
Patient Problems: Active and Suspected Problems (Last Updated 12/14/17 @ 17:06 by Guillermina Vincent DO) Dysphagia (Acute) Sinusitis (Acute) Subjective: Day #5 antibiotics vancomycin and Unasyn Continues to be afebrile. Vital signs are stable. She is 100% saturated on 2 L nasal cannula. Fluid balance since admission is +7938, good urine output All lab was personally reviewed. The white blood cell count is normal at 5.8 with 72% neutrophils. Hemoglobin is 10.6 and platelets are 118,000. Electrolytes are normal today and the BUN is 11 with a creatinine of 0.28. Magnesium is 1.8 in the phosphorus is normal at 2.7 today. Blood sugars are all less than 200. The staph aureus is methicillin resistant. - Physical Exam Vital Signs Temp Pulse Resp BP Pulse Ox 98.8 F 110 H 18 136/72 H 100 12/30/17 14:00 12/30/17 14:00 12/30/17 14:00 12/30/17 14:00 12/30/17 14:00 Oxygen Flow Rate (L/min) 2 Oxygen Delivery Method Nasal Cannula Weight: 102 lb 11.767 oz Body Mass Index (BMI) 16.5 Intake and Output for Last 24 Hours 12/28/17 12/29/17 12/30/17 23:59 23:59 23:59 Intake Total 2786 / 2786 3886 / 3886 3677 / 3677 Output Total 1475 / 1475 2750 / 2750 Balance 2786 / 2786 2411 / 2411 927 / 927 Laboratory Tests Past 24 Hrs 12/30/17 12/30/17 05:12 05:12 WBC 5.8 RBC 4.06 L Hgb 10.6 L Hct 34.5 L MCV 85.0 MCH 26.1 L MCHC 30.7 L RDW 17.1 H RDW Differential 52.6 H Plt Count 118 L MPV 10.5 Immature Gran % (Auto) 0.200 Neut % (Auto) 72.4 H Lymph % (Auto) 16.3 L [place] % (Auto) 9.9 Eos % (Auto) 1.0 Baso % (Auto) 0.2 Absolute Neuts (auto) 4.2 Absolute Lymphs (auto) 0.94 Total Counted Not Reportable Sodium 139 Potassium 4.2 Chloride 103 Carbon Dioxide 32.0 Anion Gap 4 L BUN 11 Creatinine 0.28 L Estim Creat Clear Calc 36.54 Est GFR (MDRD) Af Amer 309 Est GFR (MDRD) Non-Af 256 BUN/Creatinine Ratio 40.0 H Glucose 125 H Calcium 7.7 L Phosphorus 2.7 Magnesium 1.8 POC Glucose 12/30/17 06:43 POC Glucose 143 H Medical Necessity - Tobacco Use Smoking Status: Unknown if ever smoked Assessment/Plan Active and Suspected Problems (Last Updated 12/14/17 @ 17:06 by Guillermina Vincent DO) Dysphagia (Acute) Sinusitis (Acute)
[2017-12-30] MEDS: Morphine 2 MG/ML Syringe IV (14:43)
[2017-12-30] MEDS: Albuterol 2.5 MG/3 ML VIAL.NEB. INHALATION ×2 (15:08→19:30)
[2017-12-30] MEDS: HYDROmorphone 0.5 MG/0.5 ML SYRINGE IV (16:50)
[2017-12-30] MEDS: Budesonide Respules 0.5 MG/2 ML AMPUL.NEB. 0.25 MG INHALATION (19:30)
[2017-12-30] MEDS: Furosemide 20 MG/2 ML VIAL IV (19:37)
[2017-12-30] MEDS: Jevity 1.5 1,000 ML 20 ML GT (20:00)
--- NOTE | 2017-12-30 20:40 | NURSING ---
Pt has been updated on Pt's condition at this time.
[2017-12-30] MEDS: Mirtazapine 15 MG Tablet PO (21:54)
--- NOTE | 2017-12-30 23:57 | NURSING ---
Patient had minimal to no residual from peg tube site. Pt tolerating well - increased to 20cc/hr.
[2017-12-31] VITALS (35 sets, daily range): BP systolic 98–144; BP diastolic 51–83; PULSE 82–123; RESP 16–23; TEMP 36.6–37.3; O2SAT 92–100
[2017-12-31 00:10] LABS: Bedside Glucose 169 mg/dL (70-110)
[2017-12-31] MEDS: HYDROmorphone 0.5 MG/0.5 ML SYRINGE IV ×4 (01:32→23:20)
[2017-12-31] MEDS: 0.9% NaCl Peripheral Flush Adult/Peds IV ×7 (01:33→23:20)
--- NOTE | 2017-12-31 04:30 | NURSING ---
no residuals from PEG tube at this time. Pt feels the spasms are improving.
[2017-12-31] MEDS: Metoprolol Tartrate 5 MG/5 ML Vial IV ×4 (05:35→23:17)
--- NOTE | 2017-12-31 06:44 | PCM.OPRPT ---
Report of Operation Date of Procedure: 12/30/17 Pre-Operative Diagnosis: dysphagia with aspiration Post-Operative Diagnosis: same Surgery/Procedure Performed:: Percutaneous endoscopy gastrostomy tube placement Description of Surgical Findings:: mild\moderate antritis with friable mucosa Type of Anesthesia:: Local MAC Anesthesiologist: Olivier Hensley Specimen's removed: none Estimated Blood Loss (mL): < 1 Fluids Replaced: see anesthesia note Description of Procedure: After informed consent was given, the patient was brought to the endoscopy suite. Appropriate time out protocol was followed. Appropriate blood pressure and pulse oximetry and cardiac lead monitoring was placed. The patient was placed in the slightly recumbent position. After stable vital signs were noted, the posterior pharynx was sprayed x2 with xylocaine spray. The patient was then given IV conscious sedation by the anesthesia provider. A bite block was placed. The upper endoscope was carefully lubricated and inserted into the patients mouth. The patient was asked to swallow and the endoscopy was easily passed into the patients esophagus. It was then advanced past the GE junction into the stomach. The endoscope was advanced through the pylorus and into the duodenal bulb and then into the second portion of the duodenum. No lesions were noted. The endoscope was retracted back into the stomach. Retroflex view into the fundus and body of the stomach revealed no suspicious lesions and no ulcers were noted. The mucosa of the antrum of the stomach appeared with mild erythema and friability. The stomach was maximally insufflated with gas. A point was chosen at the left upper quadrant of the abdominal wall for placement of the gastrostomy tube. It was confirmed by indentation within the stomach as visualized under endoscopy and transillumination through the abdominal wall. The skin of the abdominal wall was the cleansed with a sterile surgical skin preparation and sterile surgical drapes were placed. The skin and subcutaneous tissues at the proposed tube site were then infiltrated with 1% xylocaine. An angiocath was then inserted through the abdominal wall and into the stomach, visualized directly via the endoscope. The blue wire was then threaded into the angiocath and thus into the stomach lumen. The grasper loop device was then inserted into the biopsy port of the endoscope and was then used to grasp the blue loop from within the lumen of the stomach. The endoscope was then retracted back, bringing the blue loop out through the patients mouth. The blue loop was then attached to the gastrostomy tube according to manufacturers guidelines. A small skin enrique was made at the blue loop entrance site through the abdominal wall. The blue loop was then pulled through the abdominal wall, thus bringing the gastrostomy tube through the patients mouth and then into the esophagus and then stomach and then a portion out through the stomach and abdominal wall. The endoscope was once again placed into the stomach via the patient's mouth. The internal flange was seated flush with the mucosa and this was visualized endoscopically. The endoscope was then retracted back into the esophagus, the esophagus appeared normal and the endoscope was removed completely intact. The gastrostomy tube was exiting out of the abdominal wall at the level 2 with the skin. The external flange was then placed on the gastrostomy tube. Triple antibiotic ointment was then placed around the skin opening and sterile dressing was applied around the gastrostomy tube. The patient tolerated the procedure well.
--- NOTE | 2017-12-31 06:52 | OP.PCM_ITS ---
Report of Operation Date of Procedure: 12/30/17 Pre-Operative Diagnosis: dysphagia with aspiration Post-Operative Diagnosis: same Surgery/Procedure Performed:: Percutaneous endoscopy gastrostomy tube placement Description of Surgical Findings:: mild\moderate antritis with friable mucosa Type of Anesthesia:: Local MAC Anesthesiologist: Olivier Hensley Specimen's removed: none Estimated Blood Loss (mL): < 1 Fluids Replaced: see anesthesia note Description of Procedure: After informed consent was given, the patient was brought to the endoscopy suite. Appropriate time out protocol was followed. Appropriate blood pressure and pulse oximetry and cardiac lead monitoring was placed. The patient was placed in the slightly recumbent position. After stable vital signs were noted , the posterior pharynx was sprayed x2 with xylocaine spray. The patient was then given IV conscious sedation by the anesthesia provider. A bite block was placed. The upper endoscope was carefully lubricated and inserted into the patient?s mouth. The patient was asked to swallow and the endoscopy was easily passed into the patient?s esophagus. It was then advanced past the GE junction into the stomach. The endoscope was advanced through the pylorus and into the duodenal bulb and then into the second portion of the duodenum. No lesions were noted. The endoscope was retracted back into the stomach. Retroflex view into the fundus and body of the stomach revealed no suspicious lesions and no ulcers were noted. The mucosa of the antrum of the stomach appeared with mild erythema and friability. The stomach was maximally insufflated with gas. A point was chosen at the left upper quadrant of the abdominal wall for placement of the gastrostomy tube. It was confirmed by indentation within the stomach as visualized under endoscopy and transillumination through the abdominal wall. The skin of the abdominal wall was the cleansed with a sterile surgical skin preparation and sterile surgical drapes were placed. The skin and subcutaneous tissues at the proposed tube site were then infiltrated with 1% xylocaine. An angiocath was then inserted through the abdominal wall and into the stomach, visualized directly via the endoscope. The blue wire was then threaded into the angiocath and thus into the stomach lumen. The grasper loop device was then inserted into the biopsy port of the endoscope and was then used to grasp the blue loop from within the lumen of the stomach. The endoscope was then retracted back, bringing the blue loop out through the patient?s mouth. The blue loop was then attached to the gastrostomy tube according to permanent mold supervisor?s guidelines. A small skin enrique was made at the blue loop entrance site through the abdominal wall. The blue loop was then pulled through the abdominal wall, thus bringing the gastrostomy tube through the patient?s mouth and then into the esophagus and then stomach and then a portion out through the stomach and abdominal wall. The endoscope was once again placed into the stomach via the patient's mouth. The internal flange was seated flush with the mucosa and this was visualized endoscopically. The endoscope was then retracted back into the esophagus, the esophagus appeared normal and the endoscope was removed completely intact. The gastrostomy tube was exiting out of the abdominal wall at the level ?2? with the skin. The external flange was then placed on the gastrostomy tube. Triple antibiotic ointment was then placed around the skin opening and sterile dressing was applied around the gastrostomy tube. The patient tolerated the procedure well.
[2017-12-31 07:00] LABS: Bedside Glucose 109 mg/dL (70-110)
[2017-12-31] MEDS: Budesonide Respules 0.5 MG/2 ML AMPUL.NEB. 0.25 MG INHALATION ×2 (07:01→19:11)
[2017-12-31] MEDS: Albuterol 2.5 MG/3 ML VIAL.NEB. INHALATION ×4 (07:01→19:11)
--- NOTE | 2017-12-31 07:29 | PCM.PROGNOTE ---
Patient Problems: Active and Suspected Problems (Last Updated 12/14/17 @ 17:06 by Guillermina Vincent DO) Dysphagia (Acute) Sinusitis (Acute) Subjective: Postoperative day #1-status post PEG Day #6 antibiotics-Unasyn and vancomycin Afebrile since admission. Vital signs are stable. Pulse ox is 100% saturation on 2 L nasal cannula. Patient is chronically on 2 L at home. Fluid balance on 12/30/2017 was -638 following Lasix 40 mg IV. Urine output was 5100. White blood cell count is normal at 8.0 today. Hemoglobin has increased to 11.2 with diuresis. Platelet count is stable at 116,000. Electrolytes are within normal limits however the serum bicarb is mildly increased at 35. BUN is 14 with a creatinine of 0.32. Blood sugars are mildly elevated but she has not required insulin. Will continue with Accu-Cheks ?1 more day and discontinue if no blood sugars greater than 180. She does c/o feeling more anxious for the past year. Has a hard time sleeping at night. she is tired of not feeling good Tells me she feels a little better today. Denies chest pain. Pain around the PEG site is adequately controlled with medication. No diarrhea. Objective: - Physical Exam General: Alert, Oriented x3, Cooperative, No apparent distress, has a little more color in her face today HEENT: Atraumatic, PERRLA, EOMI, Normocephalic Neck: Supple, No JVD, Negative Carotid Bruits Lungs: Diminished, Left lung is clear. There are rales in the R base today and there is better breath sounds after diuresis Cardiovascular: Normal S1, Normal S2, Tachycardic, - - Atrial fibrillation, no gallop Abdomen: Bowel Sounds Present, Soft, Non Tender, Non-Distended, PEG site is dry and there is no erythema Extremities: No clubbing, No cyanosis, No edema, Capillary Refill Less than 3 Seconds Skin: No rashes, No breakdown Musculoskeletal: No Tenderness to Palpation of Joints or Extremities Neurological: Cranial nerves II-XII grossly intact, Neuro grossly intact Psych/Mental Status: Normal Affect, Appropriate - Physical Exam Vital Signs Temp Pulse Resp BP Pulse Ox 98.3 F 89 18 113/58 L 100 12/31/17 03:00 12/31/17 07:00 12/31/17 07:00 12/31/17 07:00 12/31/17 07:00 Oxygen Flow Rate (L/min) 2 Oxygen Delivery Method Nasal Cannula Weight: 101 lb 6.602 oz Body Mass Index (BMI) 16.5 Intake and Output for Last 24 Hours 12/29/17 12/30/17 12/31/17 23:59 23:59 23:59 Intake Total 3886 / 3886 5362 / 5362 945 / 945 Output Total 1475 / 1475 6000 / 6000 300 / 300 Balance 2411 / 2411 -638 / -638 645 / 645 POC Glucose 12/31/17 12/31/17 06:53 00:06 POC Glucose 109 169 H Medical Necessity - Tobacco Use Smoking Status: Unknown if ever smoked Assessment/Plan Active and Suspected Problems (Last Updated 12/14/17 @ 17:06 by Guillermina Vincent DO) Dysphagia (Acute) Sinusitis (Acute) Impressions 1. Dysphagia - profound. Etiology? With a Right facial droop this may be due to a CVA. I reviewed Dr. Piper's consult and pt still resistant to MRI so will order a CT brain without contrast. Pt is agreeable to a PEG tube. Dr. Vera has been consulted. 2. Sinusitis - DC aspirated from the posterior pharynx by Dr. Chowdary at the time of EGD and it is growing Klebsiella pneumoniae and staph aureus. 3. Severe gastritis, no esophageal pathology with EGD - started on Protonix IV 4. Chronic atrial fibrillation 5. Chronic anticoagulation with Eliquis 6. COPD 7. Chronic respiratory failure with hypoxemia 8. Obstructive sleep apnea 9. Severe malnutrition 10. 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 Pulmonary hypertension 12. Bronchiectasis 13. Hypokalemia 14. Metabolic alkalosis 15. Hyperglycemia due to TPN.....started with only 10% glucose and 4.25% AA to prevent refeeding S 16. Hypophosphatemia 17. encephalomalacia Left frontal cortex - likely due to CVA - age indeterminate Restart Eliquis Restart Levothyroid per PEG on 01/03 Cardizem 60 mg q8H via the PEG Advance the TF to 30 cc/hr continue the Remeron Start Klonopin 0.5 mg q 12H DC the cardizem drip 1 hour after the first dose cardizem per PEG given. Lasix 20 mg PO today Recheck lab in the a.m. DC Unasyn and start Rocephin 1 g IV every 24 hours for Klebsiella pneumoniae Continue vancomycin for MRSA sinusitis Increase activity as tolerated She is agreeable with rehab at discharge. Code Visit Inpatient E&M: 82529 Subs Hosp L2
[2017-12-31 07:59] LABS: Hemoglobin 11.2 g/dl (12.0-15.0); Mean Corp Hgb Conc 31.1 g/gl (32-36); Mean Corpuscular Volume 83.7 fL (81-99); Mean Platelet Vol. 9.9 fl (6.2-12.0); Platelet Count 116 K/mm3 (150-450); RBC Distribution Width CV 17.5 % (11.6-14.6); RBC Distribution Width SD 53.6 fl (35.1-43.9)
[2017-12-31 08:01] LABS: Scan Indicated on CBC? Y/N NO
[2017-12-31 08:11] LABS: Partial Thromboplast Time 36.4 Seconds (24.1-36.2)
[2017-12-31 08:20] LABS: International Normalized Ratio 1.3
[2017-12-31 08:22] LABS: Anion Gap 1 (5-15); BUN 14 mg/dL (7-18); BUN/Creat Ratio 44.2 RATIO (10-20); Calcium,Total 8.1 mg/dL (8.5-10.1); Chloride 103 mmol/L (98-107); Creatinine, Serum 0.32 mg/dL (0.55-1.02); EST Glomerular Filtration Rate 217 mL/min (>60); Est Glom Filt Rate - Afr Amer 262 mL/min (>60); Estimated Creatinine Clearance 35.84 ml/min; Glucose 126 mg/dL (74-106); Potassium 3.8 mmol/L (3.5-5.1); Sodium Level 139 mmol/L (136-145)
[2017-12-31 08:23] LABS: Vancomycin, Trough Level 8.9 ug/mL (5.0-15.0)
[2017-12-31] MEDS: Fluticasone 0.05% 1 SPRAY NASAL.SRY 2 SPRAY NASAL (09:34)
[2017-12-31 11:30] LABS: Ferritin 65 ng/mL (8-252); Iron 15 ug/dL (50-170); Iron Binding Capacity,Total 216 ug/dL (250-450); PERCENT IRON SATURATION 6.9 % (15.0-55.0)
[2017-12-31] MEDS: Furosemide 20 MG Tablet GT (12:38)
[2017-12-31] MEDS: clonazePAM 0.5 MG Tablet GT ×2 (12:40→23:15)
[2017-12-31] MEDS: Famotidine 20 MG Tablet 40 MG GT ×2 (12:43)
[2017-12-31] MEDS: Ceftriaxone 1 GM/50 ML BAG IV (12:56)
--- NOTE | 2017-12-31 13:27 | CASEMGMT ---
This RN CM to room to f/u with pt regarding discharge plan and techs are at bedside caring for pt and helping bathe her at this time. This RN CM will f/u with pt on Tuesday. Per Dr. Vincent, she would like pt to go to Rehab at discharge. Kalli SW aware and will f/u with rehab on Tuesday. SStblade LUA CM
[2017-12-31] MEDS: dilTIAZem 60 MG Tablet GT ×2 (14:02→21:20)
[2017-12-31] MEDS: morphine (oral solution) 10MG/0.5ML Syringe 5 MG SL (14:03)
[2017-12-31] MEDS: Calcium Carb/Vitamin D 1 TABLET Tablet GT (17:24)
[2017-12-31] MEDS: APIXABAN 2.5 MG TABLET GT (21:20)
[2017-12-31] MEDS: Mirtazapine 15 MG Tablet GT (21:20)
[2017-12-31 21:36] LABS: Bedside Glucose 120 mg/dL (70-110)
[2018-01-01] VITALS (20 sets, daily range): BP systolic 113–131; BP diastolic 66–82; PULSE 92–117; RESP 14–18; TEMP 36.9–37.3; O2SAT 99–100
[2018-01-01] MEDS: 0.9% NaCl Peripheral Flush Adult/Peds IV ×6 (04:43→20:49)
[2018-01-01 05:17] LABS: Anion Gap 4 (5-15); BUN 13 mg/dL (7-18); BUN/Creat Ratio 37.7 RATIO (10-20); Calcium,Total 8.1 mg/dL (8.5-10.1); Chloride 102 mmol/L (98-107); Creatinine, Serum 0.34 mg/dL (0.55-1.02); EST Glomerular Filtration Rate 197 mL/min (>60); Est Glom Filt Rate - Afr Amer 238 mL/min (>60); Estimated Creatinine Clearance 35.84 ml/min; Glucose 155 mg/dL (74-106); Magnesium 1.9 mg/dL (1.6-2.6); Phosphorus 2.8 mg/dL (2.5-4.9); Potassium 3.6 mmol/L (3.5-5.1); Sodium Level 142 mmol/L (136-145)
[2018-01-01] MEDS: Metoprolol Tartrate 5 MG/5 ML Vial IV ×2 (05:28→11:00)
[2018-01-01] MEDS: dilTIAZem 60 MG Tablet GT ×4 (05:28→23:50)
[2018-01-01] MEDS: Jevity 1.5 1,000 ML 30 ML GT (05:37)
[2018-01-01] MEDS: Albuterol 2.5 MG/3 ML VIAL.NEB. INHALATION ×5 (07:21→22:52)
[2018-01-01] MEDS: Budesonide Respules 0.5 MG/2 ML AMPUL.NEB. 0.25 MG INHALATION ×2 (07:22→18:56)
--- NOTE | 2018-01-01 08:27 | PCM.PROGNOTE ---
Patient Problems: Active and Suspected Problems (Last Updated 12/14/17 @ 17:06 by Guillermina Vincent DO) Dysphagia (Acute) Sinusitis (Acute) Subjective: Patient is a 72-year-old female with a past medical history of chronic respiratory failure with hypoxemia, depression, NEPTALI, right upper lobe lung resection, bronchiectasis, atrial fibrillation, NEPTALI, pulmonary hypertension and Takotsubo's cardiomyopathy who was admitted to [facility] with acute on chronic sinusitis due to Klebsiella and MRSA. 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 She is n.p.o. and working with speech therapy. PEG tube was inserted on 12/30/[address] Yadira Vera. Has been seen by Dr. Landa and Dr. Vasquez. No ENT surgery planned at this time. Will need prolonged course IV Vanco. Has a PICC. Afebrile. HR is still increased at times. The BP is WNL. Day #7 antibiotics. Vanco and Rocephin BMP today shows the serum bicarb is up to 36 and I suspect this is secondary to Lasix. Her BUN is stable at 13 and the creatinine today 0.34. Phosphorus is 2.8 and the magnesium is 1.9. Serum iron was low at 15 with a TIBC of 216 and an oxygen saturation of 6.9%. Ferritin is 65 which is within normal limits however she has severe sinusitis/infection and ferritin is an acute phase reactant. I suspect that she is iron deficient and she was given 1 dose of Venofer 100 mg on 12/31 and will give another dose today. The folate is within normal limits and the B12 is still pending. Blood sugars are all less than 200. Today she is feeling a little bit better. She is improving a little bit every day. Her only complaint today is she is feeling constipated. She is tolerating the Jevity 1.5 at 30 cc/h. Objective: - Physical Exam General: Alert, Oriented x3, Cooperative, No apparent distress, has a little more color in her face today than yesterday, no facial droop HEENT: Atraumatic, PERRLA, EOMI, Normocephalic Neck: Supple, No JVD, Negative Carotid Bruits Lungs: Diminished, Left lung is clear. There are less rales in the R base today and there is better breath sounds after diuresis Cardiovascular: Normal S1, Normal S2, still with an increased HR with exertion - - Atrial fibrillation, no gallop Abdomen: Bowel Sounds Present, Soft, Non Tender, Non-Distended, PEG site is dry and there is no erythema Extremities: No clubbing, No cyanosis, No edema, Capillary Refill Less than 3 Seconds Skin: No rashes, No breakdown Musculoskeletal: No Tenderness to Palpation of Joints or Extremities Neurological: Cranial nerves II-XII grossly intact, Neuro grossly intact Psych/Mental Status: Normal Affect, Appropriate, she is having a more positive outlook today because she is starting to feel better - Physical Exam Vital Signs Temp Pulse Resp BP Pulse Ox 99.0 F 92 16 131/82 H 99 01/01/18 05:20 01/01/18 07:23 01/01/18 07:23 01/01/18 05:28 01/01/18 07:23 Oxygen Flow Rate (L/min) 2 Oxygen Delivery Method Nasal Cannula Weight: 102 lb 15.294 oz Body Mass Index (BMI) 16.5 Intake and Output for Last 24 Hours 12/30/17 12/31/17 01/01/18 23:59 23:59 23:59 Intake Total 5362 / 5362 2984.2 / 2984.2 447 / 447 Output Total 6000 / 6000 2800 / 2800 300 / 300 Balance -638 / -638 184.2 / 184.2 147 / 147 Laboratory Tests Past 24 Hrs 12/31/17 12/31/17 12/31/17 07:44 07:44 07:44 PT 16.0 H INR 1.3 APTT 36.4 H Sodium Potassium Chloride Carbon Dioxide Anion Gap BUN Creatinine Estim Creat Clear Calc Est GFR (MDRD) Af Amer Est GFR (MDRD) Non-Af BUN/Creatinine Ratio Glucose Calcium Phosphorus Magnesium Iron 15 L TIBC 216 L Iron Saturation 6.9 L Ferritin 65 Vitamin B12 Pending Folate 19.10 01/01/18 04:30 PT INR APTT Sodium 142 Potassium 3.6 Chloride 102 Carbon Dioxide 36.0 H Anion Gap 4 L BUN 13 Creatinine 0.34 L Estim Creat Clear Calc 35.84 Est GFR (MDRD) Af Amer 238 Est GFR (MDRD) Non-Af 197 BUN/Creatinine Ratio 37.7 H Glucose 155 H Calcium 8.1 L Phosphorus 2.8 Magnesium 1.9 Iron TIBC Iron Saturation Ferritin Vitamin B12 Folate POC Glucose 12/31/17 21:23 POC Glucose 120 H Medical Necessity - Tobacco Use Smoking Status: Never smoker Tobacco Use: Non-smoker Assessment/Plan Active and Suspected Problems (Last Updated 12/14/17 @ 17:06 by Guillermina Vincent, ) Dysphagia (Acute) Sinusitis (Acute) Impressions 1. Dysphagia - profound. Etiology? With a Right facial droop this may be due to a CVA. I reviewed Dr. Piper's consult and pt still resistant to MRI so will order a CT brain without contrast. Pt is agreeable to a PEG tube. Dr. Vera has been consulted. 2. Sinusitis - DC aspirated from the posterior pharynx by Dr. Chowdary at the time of EGD and it is growing Klebsiella pneumoniae and staph aureus. 3. Severe gastritis, no esophageal pathology with EGD - started on Protonix IV 4. Chronic atrial fibrillation 5. Chronic anticoagulation with Eliquis 6. COPD 7. Chronic respiratory failure with hypoxemia 8. Obstructive sleep apnea 9. Severe malnutrition 10. 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 Pulmonary hypertension 12. Bronchiectasis 13. Hypokalemia 14. Metabolic alkalosis 15. Hyperglycemia due to TPN.....started with only 10% glucose and 4.25% AA to prevent refeeding S 16. Hypophosphatemia 17. encephalomalacia Left frontal cortex - likely due to CVA - age indeterminate Continue Eliquis Restart Levothyroid per PEG on 01/03 Increase Cardizem 60 mg to q6H via the PEG Advance the TF to 30 cc/hr DC the IV metoprolol and start Metoprol 25 mg BID via the PEG continue the Remeron Continue Rocephin 1 g IV every 24 hours for Klebsiella pneumoniae Continue vancomycin for MRSA sinusitis Increase activity as tolerated She is agreeable with rehab at discharge. Increase the tube feed to goal at 45 cc/h. Code Visit Inpatient E&M: 17654 Subs Hosp L2
[2018-01-01] MEDS: Calcium Carb/Vitamin D 1 TABLET Tablet GT ×2 (08:50→16:06)
[2018-01-01] MEDS: HYDROmorphone 0.5 MG/0.5 ML SYRINGE IV ×2 (09:23→14:15)
[2018-01-01] MEDS: APIXABAN 2.5 MG TABLET GT ×2 (10:59→21:09)
[2018-01-01] MEDS: Ceftriaxone 1 GM/50 ML BAG IV (10:59)
[2018-01-01] MEDS: clonazePAM 0.5 MG Tablet GT ×2 (10:59→23:50)
[2018-01-01] MEDS: Fluticasone 0.05% 1 SPRAY NASAL.SRY 2 SPRAY NASAL (11:02)
[2018-01-01] MEDS: Magnesium Hydroxide 30 ML UDC 60 ML GT (16:06)
[2018-01-01] MEDS: Mirtazapine 15 MG Tablet GT (21:09)
[2018-01-01] MEDS: Metoprolol Tartrate 25 MG Tablet GT (21:09)
[2018-01-02] VITALS (12 sets, daily range): BP systolic 103–142; BP diastolic 61–79; PULSE 83–112; RESP 17–24; TEMP 36.2–38.3; O2SAT 97–100
[2018-01-02] MEDS: Albuterol 2.5 MG/3 ML VIAL.NEB. INHALATION ×3 (03:25→11:08)
[2018-01-02] MEDS: dilTIAZem 60 MG Tablet GT ×2 (06:28→12:50)
[2018-01-02] MEDS: Budesonide Respules 0.5 MG/2 ML AMPUL.NEB. 0.25 MG INHALATION (06:40)
[2018-01-02] MEDS: Jevity 1.5 1,000 ML 45 ML GT (07:04)
--- NOTE | 2018-01-02 08:50 | CASEMGMT ---
Addendum entered by Ginny Figueroa 01/02/18 12:43: Patient is ready for d/c to [facility]. Orders copied. Plan: [facility] under skilled level of care. Ginny MOE Original Note: SW spoke with patient about going to [facility]. She said she would go to TCU here. SW called [facility] who is covering for TCU and she said they would have a bed for patient when she is ready. SW let patient know she would have a bed in TCU when ready. SW notified RN. Plan: [facility] when medically ready. Ginny MOE
[2018-01-02] MEDS: Calcium Carb/Vitamin D 1 TABLET Tablet GT (09:02)
[2018-01-02] MEDS: clonazePAM 0.5 MG Tablet GT (09:02)
[2018-01-02] MEDS: APIXABAN 2.5 MG TABLET GT (09:03)
[2018-01-02] MEDS: Famotidine 20 MG Tablet 40 MG GT (09:03)
[2018-01-02] MEDS: Metoprolol Tartrate 25 MG Tablet GT (09:03)
[2018-01-02] MEDS: Ceftriaxone 1 GM/50 ML BAG IV (09:04)
[2018-01-02] MEDS: Fluticasone 0.05% 1 SPRAY NASAL.SRY 2 SPRAY NASAL (09:13)
[2018-01-02] MEDS: 0.9% NaCl Peripheral Flush Adult/Peds IV ×3 (09:14→13:08)
[2018-01-02 09:23] LABS: Vancomycin, Trough Level 11.9 ug/mL (5.0-15.0)
--- NOTE | 2018-01-02 09:33 | PCM.RX.CS ---
Consult Pharmacy has been consulted to manage selected antiobiotic: Vancomycin Type of Consult: Follow-up Suspected Infection: Other - SINUS INFECTION Prior Doses of Antibiotics Received/Current Regimen: vancomycin 1250mg IV Q12hrs: 01/01 @2046 Labs: Sodium 142 mmol/L (136-145) 01/01/18 04:30 Potassium 3.6 mmol/L (3.5-5.1) 01/01/18 04:30 Chloride 102 mmol/L (98-107) 01/01/18 04:30 Carbon Dioxide 36.0 mmol/L (21.0-32.0) H 01/01/18 04:30 Anion Gap 4 (5-15) L 01/01/18 04:30 BUN 13 mg/dL (7-18) 01/01/18 04:30 Creatinine 0.34 mg/dL (0.55-1.02) L 01/01/18 04:30 Est GFR (MDRD) Af Amer 238 mL/min (>60) 01/01/18 04:30 Est GFR (MDRD) Non-Af 197 mL/min (>60) 01/01/18 04:30 BUN/Creatinine Ratio 37.7 RATIO (10-20) H 01/01/18 04:30 Glucose 155 mg/dL (74-106) H 01/01/18 04:30 Vancomycin Trough 11.9 ug/mL (5.0-15.0) 01/02/18 08:35 Goal Trough: 10-15 mcg/mL Pharmacy Plan for Drug Dosing: The patient had a trough drawn which resulted in a value of 11.9 (drawn ~12hrs from last dose given). This is within the target trough goal of 10-15. Will continue same dose of antibiotics at this time, and will not schedule another trough. A new trough will be rescheduled if the patient is on it for a prolonged period of time, or if there is a significant change in renal function. PLAN/RECOMMENDATIONS 1. Continue vancomycin 1250mg IV Q12hrs 2. No trough reordered at this time 3. Pharmacy will continue to monitor patient daily and will make changes as appropriate
[2018-01-02 09:58] LABS: Vitamin B12 920 pg/mL (211-911)
[2018-01-02] MEDS: HYDROmorphone 0.5 MG/0.5 ML SYRINGE IV (10:19)
--- NOTE | 2018-01-02 11:36 | PCM.TXEXTCAR ---
- Diet Has TPN ordered via PICC line, 2L 4.25%AA/10%Dextrose to provide ~ 1020 abdullahi / 84 gm pro/day, but currently getting PEG placement. Pt estimated nutrition needs ~ 7519-5941 abdullahi / 60-70 gm pro /day. - Routine Orders/Code Status Suppository Type: Dulcolax 10mg Suppository Frequency: Daily PRN O2 Frequency: Continuous Keep PO Greater than or Equal to (%): 90 Routine Lab Work: CBC, BMP Code Status: Full Code - Wound(s) L UPPER ABOMEN Wound Type: Surgical Incision Dressing Change: Dry Sterile Dressing - Therapies Physical Therapy: Eval and Treat Occupational Therapy: Eval and Treat Speech Therapy: Eval and Treat - Problem/Diagnosis (1) Gastritis Status: Acute Current Visit: Yes (2) Dysphagia Status: Acute Current Visit: Yes (3) Sinusitis Status: Acute Current Visit: Yes (4) Severe malnutrition Status: Chronic Current Visit: No (5) Acute and chronic respiratory failure with hypoxia Status: Chronic Current Visit: No (6) History of lobectomy of lung Status: Chronic Current Visit: No (7) 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 Current Visit: No (8) Chronic respiratory failure with hypoxia Status: Chronic Current Visit: No (9) NEPTALI (obstructive sleep apnea) Status: Chronic Current Visit: No (10) PND (paroxysmal nocturnal dyspnea) Status: Chronic Current Visit: No (11) Bronchiectasis Status: Chronic Current Visit: No (12) Pulmonary hypertension Status: Chronic Current Visit: No (13) Takotsubo cardiomyopathy Status: Chronic Comment: EF in August of 2016 was 45-50%, previously 20% Current Visit: No (14) Chronic atrial fibrillation Status: Chronic Current Visit: No - Allergies/Procedures Done in Hospital Allergies/Adverse Reactions: Allergies sulfamethoxazole [From Bactrim] Allergy (Verified 12/26/17 11:28) Hives PT STATES NOT ALLERGIC tetracycline Allergy (Verified 12/26/17 11:28) Hives trimethoprim [From Bactrim] Allergy (Verified 12/26/17 11:28) Hives verapamil Allergy (Verified 12/26/17 11:28) Unknown itraconazole Adverse Reaction (Verified 12/26/17 11:28) chest tightness w/ upper and loewr extremity weakness warfarin [From Coumadin] Adverse Reaction (Verified 12/26/17 11:28) gi bleed SODIUM P[place]ATH[place] Allergy (Uncoded 12/26/17 11:28) jaundice/hives JAUNDICE Procedures: - - PEG tube placed - Type of Care/Length of Stay Estimated LOS: Convalescent Care Less Than 30 days Type of Care Needed: Skilled Rehab Potential: Fair Prognosis: Fair - Additional Orders/Day of Discharge Day of Discharge: 01/02/18 - Dietary and Speech Recommendations Dietitian Recommendations/Changes: As able to use PEG, rec wean TPN. For TF - rec Jevity 1.5 at goal rate 45 cc/hr with 125 cc H2O flush every 4 hours to provide ~ 1620 abdullahi / 69 gm pro / 1571 cc free water/day. Would start tf at 15 cc/hr and increase 15 cc/hr every 6-8 hrs as pt tolerates until goal rate achieved. - Follow Up Care Primary Care Physician: Christo Wilde MD [Primary Care Provider] - Please follow up with your Primary Care Physician in: 2 weeks Please Follow Up With: Yadira Vera MD - PEG tube When: 1-2 weeks Please Follow Up With: David Vasquez MD - ENT When: 1-2 weeks
--- NOTE | 2018-01-02 12:33 | PCM.PN.ID ---
Patient Problems: Active and Suspected Problems (Last Updated 12/14/17 @ 17:06 by Guillermina Vincent DO) Dysphagia (Acute) Sinusitis (Acute) Gastritis (Acute) Subjective: More sore throat and drainage today. No fever. - Physical Exam General: Alert, Cooperative Lungs: Clear to auscultation, Normal air movement Cardiovascular: Regular rate, Regular Rhythm Abdomen: Soft, Non Tender, Non-Distended Skin: No rashes Vital Signs Temp Pulse Resp BP Pulse Ox 98.0 F 90 24 H 103/61 99 01/02/18 06:26 01/02/18 11:08 01/02/18 11:08 01/02/18 06:26 01/02/18 11:08 Oxygen Flow Rate (L/min) 2 Oxygen Delivery Method Nasal Cannula Weight: 47 kg Body Mass Index (BMI) 16.5 Intake and Output for Last 24 Hours 12/31/17 01/01/18 01/02/18 23:59 23:59 23:59 Intake Total 2984.2 / 2984.2 2844.2 / 2844.2 1204 / 1204 Output Total 2800 / 2800 1800 / 1800 400 / 400 Balance 184.2 / 184.2 1044.2 / 1044.2 804 / 804 Laboratory Tests Past 24 Hrs 12/31/17 01/02/18 07:44 08:35 Vitamin B12 920 H Vancomycin Trough 11.9 Medical Necessity - Tobacco Use Smoking Status: Never smoker Tobacco Use: Non-smoker Route of nutrition/ use of supplements: [] Nutritional Intake: [] IV Site: [] Hernandez Catheter: [] - Assessment/Plan Antibiotics: [] Assessment/Plan: [] Active and Suspected Problems (Last Updated 12/14/17 @ 17:06 by Guillermina Vincent DO) Dysphagia (Acute) Sinusitis - cxs recurrently (+) for MRSA and K.pneumo. Multiple admissions in past year with infection with these organisms. PO abx options for MRSA are limited based on her allergies. Plan on at least 4 week course of iv vanc and ceftriaxone, tentative stop date 01/29/18, weekly bmp, cbc, vanc trough while on iv abx (fax to [phone]). will follow
--- NOTE | 2018-01-02 13:00 | PCM.DC.SUM ---
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 Pulmonary HTN Bronchiectasis Hypokalemia Metabolic alkalosis Hypophosphatemia encephalomalacia of the left frontal cortex hypothyroidism - Secondary Discharge Diagnosis Chronic Problems (Last Updated 12/14/17 @ 17:06 by Guillermina Vincent DO) Thrush, oral (Chronic) Community acquired pneumonia due to Klebsiella pneumoniae (Chronic) Severe malnutrition (Chronic) Atrial fibrillation with RVR (Chronic) Acute and chronic respiratory failure with hypoxia (Chronic) 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 CT/Sinus/Facial Bone IMPRESSION: Sinusitis. Nasal septal deviation towards the left side of the midline. Barium Swallow: INTERPRETATION OF RESULTS: Patient presents with profound oropharyngeal dysphagia (R13.12). Oral phase primarily marked by suboptimal lingual control with noted slowed rate of bolus manipulation and frequent posterior premature spillage; and poor oral clearance secondary to reduced intraoral strength. Pharyngeal phase severely impaired, involving all facets, most notably severe pharyngeal dysmotility with impairment along the entirety of the pharyngeal constrictors and pharyngoesophageal segment opening further complicated by little to no epiglottic inversion, with the epiglottis at times projecting the bolus superiorly vs. inferiorly leading to copious pharyngeal retention within the valleculae and to a much larger extent the pyriform sinus contributing to post prandial and prandial aspiration; significantly impaired closure of the airway during deglutition with little to no hyolaryngeal excursion leading to little epiglottic movement and clear insufficient laryngeal vestibule closure / pressure generated to expel penetrated material leading to prandial aspiration. Further noted velopharyngeal insufficiency typically identified in neurologically compromised patients. Insufficient / inconsistent cough response to expel penetrated material / laryngotracheal aspiration with very weak cough response noted. Very prominent and atypical gap between the lingual base and posterior pharyngeal wall. Patient additionally appears to be malnourished / very underweight upon subjective assessment, would assume that the Patient has exhibited difficulties with deglutition for longer than the stated period (starting earlier this week). Trials of more viscous textures / solid textures held due to significance of pharyngeal involvement, high likelihood of continual aspiration, and higher risk of asphyxiation. Patient noted to initially SILENTLY aspirate with thin liquids with continual aspiration leading to overt reaction, with clinical assessment at bedside relying on identification of classic overt signs and symptoms of aspiration somewhat unreliable Video Swallow: RAD/Swallowing Function w/Video IMPRESSION: Aspiration with ingestion of thin liquids and nectar thickened liquids. The swallow study findings were discussed with the patient by the speech pathologist at the conclusion of the examination. Please see speech pathology report for more information and recommendations. RAD/CXR for Line Placement IMPRESSION: Right-sided PICC line appears properly positioned. Centrilobular emphysema. Severe bronchiectasis and scarring throughout the right lung with right apical bullae or contained pneumothorax, unchanged compared to September 2017. Superimposed infection or malignancy is difficult to exclude. CT/Brain/Head without Contrast IMPRESSION: Left high frontal cortical and white matter low density, presumably encephalomalacia from prior ischemia. This finding is new compared to 2006. MRI may be helpful if further evaluation is desired. Chronic right basal ganglia lacunar infarct. No evidence of acute intracranial hemorrhage or mass effect. Paranasal sinus disease Consults: Cordell Vera - gen surgery Christina - ENT Piper - neurology Operations: - - PEG tube placement Procedures: None Summary of Care Provided: Physical exam on day of discharge: General: Resting comfortably NAD, frail. Psych: A/Ox3 normal affect HEENT: NONARLA AT NC Neck: Supple NT CV: RRR no m/t/r/g/h Resp: Crackles bilateral lower sanchez. Abd: [id number] Soft NT no guarding or rigidity Ext: DP2+= no edema Skin: W/D normal turgor Lymph/Heme: No active bleeding or adenopathy Neuro: CN2-12 intact Hospital course: The patient is a 72 year old F with a history of obstructive sleep apnea, chronic respiratory failure with hypoxemia on supplemental oxygen, depression, 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 fib, chronic pulmonary hypertension, tachycardia supra's cardiomyopathy who presented to the emergency room complaining of difficulty and severe pain with swallowing liquids or solid foods. She is recently discharged from the hospital for pneumonia, acute COPD/bronchiectasis exacerbation and was treated with anabiotic steroids. She also noted she had significant sinus blockage and did have a history of recurrent sinusitis. Prior infections were due to Pseudomonas. She had a repeat culture which demonstrated MRSA. She was placed on vancomycin. There was also Klebsiella pneumonia growing. Infectious disease disease was consulted and she was placed on vancomycin and Rocephin. ENT did not feel that a invasive procedure was necessary at this time. Patient did continue to have severe difficulty swallowing with severe pain she is made n.p.o., and she underwent a PEG tube placement per Dr. Vera. She was started on tube feedings which she tolerated. She was severely malnourished and debilitated. Patient was advised to have halfway placement she was agreeable. She will continue IV antibiotics as directed by infectious disease for 4 weeks including back and ceftriaxone. Tentative stop date 01/29/2018. She will need to have weekly BMPs, CBCs, and vanc troughs. She will need ongoing physical therapy occupational therapy and speech therapy. She will need to follow-up with Dr. Monreal or his partner for ENT she may require an intervention down the road. She will also need to follow-up with Dr. Vera who placed her PEG tube. Patient is discharged to TCU in stable condition. This patient was seen by Matteo Silva PA-C under the supervision of Doctor Belem. [] Discharge Diet: - - PEG inserted on 12/30/2017. Pt remains NPO & with good tolerance of Jevity 1.5 at goal rate 45 cc/hr with 60 cc H2O flush Q 4 hours (per STONEY Archibald). TF with water flushes provides ~ 1620 abdullahi / 69 gm pro / 1181 ml free water/day. Wt stable with ~.4 Kg increase since last review. Noted hypoactive bowel sounds. Blood glucose with some elevation. Last bag of TPN was hung on 12/30. Discharge Activity: Return to Normal Activity Home Medications: Medications to take at Discharge Cholecalciferol (Vitamin D3) [Vitamin D3] 2,000 unit PO DAILY 10/30/16 Albuterol Inhaler [Ventolin Hfa] 1 - 2 puff INHALATION Q2H PRN PRN #1 inhaler 11/21/16 Formoterol Fumarate [Perforomist] 20 mcg INHALATION BID 04/18/17 Budesonide [Pulmicort] 0.25 mg IH BID 09/08/17 fluticasone 50 mcg/actuation nasal spray,suspension 2 spray INTRANASAL DAILY #16 g 11/28/17 Methadone HCl 5 mg PO BID 12/06/17 Calcium Carb/Vitamin D [Os-Abdullahi 500MG + D] 1 tablet PO BIDCM 12/26/17 Apixaban [Eliquis] 2.5 mg GT BID tablet 01/02/18 Ceftriaxone [Rocephin] 1 gm IV Q24 bag 01/02/18 Clonazepam [Klonopin] 0.5 mg GT Q12H 2 Days #4 tab 01/02/18 Diltiazem [Cardizem] 60 mg GT Q6 tablet 01/02/18 Famotidine [Pepcid] 40 mg GT DAILY tablet 01/02/18 Guaifenesin [Robitussin] 10 ml GT Q4H PRN PRN udc 01/02/18 Levothyroxine [Synthroid] 88 mcg GT DAILY@0600 tablet 01/02/18 Lidocaine 2% Viscous [Xylocaine Viscous] 5 ml PO Q4H PRN PRN udc 01/02/18 Metoprolol Tartrate [Lopressor (beta cirilo)] 25 mg GT BID tablet 01/02/18 Mirtazapine [Remeron] 15 mg GT QHS tablet 01/02/18 Vancomycin 1,250 mg IV Q12H vial 01/02/18 morphine solution (IR) [Roxanol (IR oral solution)] 5 mg SL Q4H PRN 2 Days #6 po.syringe 01/02/18 Following Prescrptions Were Given to Patient: Clonazepam [Klonopin] 0.5 mg GT Q12H 2 Days #4 tab morphine solution (IR) [Roxanol (IR oral solution)] 5 mg SL Q4H PRN 2 Days #6 po.syringe PRN Reason: Pain Primary Care Physician: Christo Wilde MD [Primary Care Provider] - Please follow up with your Primary Care Physician in: 2 weeks Please Follow Up With: Yadira Vera MD When: 1-2 weeks Please Follow Up With: David Vasquez MD When: 1-2 weeks Please Follow Up With: Christo Wilde MD When: 2 weeks Disposition: Long Term facility Minutes spent on discharge:: 40 Patient Condition:: Stable Medical Necessity - Tobacco Use Smoking Status: Never smoker Tobacco Use: Non-smoker Meaningful Use Info Meaningful Use Diagnoses (Choose all that apply): None applicable <Alex Patricia - Last Filed: 01/02/18 15:12> Discharge Date and Diagnosis - Secondary Discharge Diagnosis Chronic Problems (Last Updated 12/14/17 @ 17:06 by Guillermina Vincent DO) Thrush, oral (Chronic) Community acquired pneumonia due to Klebsiella pneumoniae (Chronic) Severe malnutrition (Chronic) Atrial fibrillation with RVR (Chronic) Acute and chronic respiratory failure with hypoxia (Chronic) 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) Chronic respiratory failure with hypoxia (Chronic) NEPTALI (obstructive sleep apnea) (Chronic) PND (paroxysmal nocturnal dyspnea) (Chronic) Bronchiectasis (Chronic) Pulmonary hypertension (Chronic) Takotsubo cardiomyopathy (Chronic) EF in August of 2016 was 45-50%, previously 20% Chronic atrial fibrillation (Chronic) Hypomagnesemia (Chronic) Recheck magnesium in 48 hours Hospital Course and Treatment Summary of Care Provided: The patient is a 72 year old F with multiple comorbidities including right upper lobe lung resection as a result of aspergillosis, recurrent sinusitis with multiple organisms admitted with progressive shortness of breath an assessment of recurrent sinusitis with multiple organisms. Patient was also found to have recurrent dysphagia underwent PEG tube placement. Details of patient hospital stay is as detailed above by Matteo Silva. Patient was seen and examined on the day of discharge. Did review the discharge instructions as well as discharge medications. Do concur with notes detailed above. Total time spent on discharge process 45 minutes [] Code Visit Inpatient E&M: 19953 Disch Hosp
[2018-01-02] MEDS: Ondansetron 4 MG/2 ML Vial IV (13:07)
--- NOTE | 2018-01-02 13:18 | DS.PCM_ITS ---
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 Pulmonary HTN Bronchiectasis Hypokalemia Metabolic alkalosis Hypophosphatemia encephalomalacia of the left frontal cortex hypothyroidism - Secondary Discharge Diagnosis Chronic Problems (Last Updated 12/14/17 @ 17:06 by Guillermina Vincent DO) Thrush, oral (Chronic) Community acquired pneumonia due to Klebsiella pneumoniae (Chronic) Severe malnutrition (Chronic) Atrial fibrillation with RVR (Chronic) Acute and chronic respiratory failure with hypoxia (Chronic) 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 CT/Sinus/Facial Bone IMPRESSION: Sinusitis. Nasal septal deviation towards the left side of the midline. Barium Swallow: INTERPRETATION OF RESULTS: Patient presents with profound oropharyngeal dysphagia (R13.12). Oral phase primarily marked by suboptimal lingual control with noted slowed rate of bolus manipulation and frequent posterior premature spillage; and poor oral clearance secondary to reduced intraoral strength. Pharyngeal phase severely impaired, involving all facets, most notably severe pharyngeal dysmotility with impairment along the entirety of the pharyngeal constrictors and pharyngoesophageal segment opening further complicated by little to no epiglottic inversion, with the epiglottis at times projecting the bolus superiorly vs. inferiorly leading to copious pharyngeal retention within the valleculae and to a much larger extent the pyriform sinus contributing to post prandial and prandial aspiration; significantly impaired closure of the airway during deglutition with little to no hyolaryngeal excursion leading to little epiglottic movement and clear insufficient laryngeal vestibule closure / pressure generated to expel penetrated material leading to prandial aspiration. Further noted velopharyngeal insufficiency typically identified in neurologically compromised patients. Insufficient / inconsistent cough response to expel penetrated material / laryngotracheal aspiration with very weak cough response noted. Very prominent and atypical gap between the lingual base and posterior pharyngeal wall. Patient additionally appears to be malnourished / very underweight upon subjective assessment, would assume that the Patient has exhibited difficulties with deglutition for longer than the stated period ( starting earlier this week). Trials of more viscous textures / solid textures held due to significance of pharyngeal involvement, high likelihood of continual aspiration, and higher risk of asphyxiation. Patient noted to initially SILENTLY aspirate with thin liquids with continual aspiration leading to overt reaction, with clinical assessment at bedside relying on identification of classic overt signs and symptoms of aspiration somewhat unreliable Video Swallow: RAD/Swallowing Function w/Video IMPRESSION: Aspiration with ingestion of thin liquids and nectar thickened liquids. The swallow study findings were discussed with the patient by the speech pathologist at the conclusion of the examination. Please see speech pathology report for more information and recommendations. RAD/CXR for Line Placement IMPRESSION: Right-sided PICC line appears properly positioned. Centrilobular emphysema. Severe bronchiectasis and scarring throughout the right lung with right apical bullae or contained pneumothorax, unchanged compared to September 2017. Superimposed infection or malignancy is difficult to exclude. CT/Brain/Head without Contrast IMPRESSION: Left high frontal cortical and white matter low density, presumably encephalomalacia from prior ischemia. This finding is new compared to 2006. MRI may be helpful if further evaluation is desired. Chronic right basal ganglia lacunar infarct. No evidence of acute intracranial hemorrhage or mass effect. Paranasal sinus disease Consults: Cordell Vera - gen surgery Christina - ENT Piper - neurology Operations: - - PEG tube placement Procedures: None Summary of Care Provided: Physical exam on day of discharge: General: Resting comfortably NAD, frail. Psych: A/Ox3 normal affect HEENT: NONARLA AT NC Neck: Supple NT CV: RRR no m/t/r/g/h Resp: Crackles bilateral lower sanchez. Abd: [id number] Soft NT no guarding or rigidity Ext: DP2+= no edema Skin: W/D normal turgor Lymph/Heme: No active bleeding or adenopathy Neuro: CN2-12 intact Hospital course: The patient is a 72 year old F with a history of obstructive sleep apnea, chronic respiratory failure with hypoxemia on supplemental oxygen, depression, right upper lobe lung resection secondary to prior aspergillosis, bronchiectasis , chronic A. fib, chronic pulmonary hypertension, tachycardia supra's cardiomyopathy who presented to the emergency room complaining of difficulty and severe pain with swallowing liquids or solid foods. She is recently discharged from the hospital for pneumonia, acute COPD/bronchiectasis exacerbation and was treated with anabiotic steroids. She also noted she had significant sinus blockage and did have a history of recurrent sinusitis. Prior infections were due to Pseudomonas. She had a repeat culture which demonstrated MRSA. She was placed on vancomycin. There was also Klebsiella pneumonia growing. Infectious disease disease was consulted and she was placed on vancomycin and Rocephin. ENT did not feel that a invasive procedure was necessary at this time. Patient did continue to have severe difficulty swallowing with severe pain she is made n.p.o., and she underwent a PEG tube placement per Dr. Vera. She was started on tube feedings which she tolerated. She was severely malnourished and debilitated. Patient was advised to have snf placement she was agreeable. She will continue IV antibiotics as directed by infectious disease for 4 weeks including back and ceftriaxone. Tentative stop date 01/29/2018. She will need to have weekly BMPs, CBCs, and vanc troughs. She will need ongoing physical therapy occupational therapy and speech therapy. She will need to follow-up with Dr. Monreal or his partner for ENT she may require an intervention down the road. She will also need to follow -up with Dr. Vera who placed her PEG tube. Patient is discharged to TCU in stable condition. This patient was seen by Matteo Silva PA-C under the supervision of Doctor Belem. [] Discharge Diet: - - PEG inserted on 12/30/2017. Pt remains NPO & with good tolerance of Jevity 1.5 at goal rate 45 cc/hr with 60 cc H2O flush Q 4 hours ( per STONEY Archibald). TF with water flushes provides ~ 1620 abdullahi / 69 gm pro / 1181 ml free water/day. Wt stable with ~.4 Kg increase since last review. Noted hypoactive bowel sounds. Blood glucose with some elevation. Last bag of TPN was hung on 12/30. Discharge Activity: Return to Normal Activity Home Medications: Medications to take at Discharge Cholecalciferol (Vitamin D3) [Vitamin D3] 2,000 unit PO DAILY 10/30/16 Albuterol Inhaler [Ventolin Hfa] 1 - 2 puff INHALATION Q2H PRN PRN #1 inhaler Formoterol Fumarate [Perforomist] 20 mcg INHALATION BID 04/18/17 Budesonide [Pulmicort] 0.25 mg IH BID 09/08/17 fluticasone 50 mcg/actuation nasal spray,suspension 2 spray INTRANASAL DAILY # 16 g 11/28/17 Methadone HCl 5 mg PO BID 12/06/17 Calcium Carb/Vitamin D [Os-Abdullahi 500MG + D] 1 tablet PO BIDCM 12/26/17 Apixaban [Eliquis] 2.5 mg GT BID tablet 01/02/18 Ceftriaxone [Rocephin] 1 gm IV Q24 bag 01/02/18 Clonazepam [Klonopin] 0.5 mg GT Q12H 2 Days #4 tab 01/02/18 Diltiazem [Cardizem] 60 mg GT Q6 tablet 01/02/18 Famotidine [Pepcid] 40 mg GT DAILY tablet 01/02/18 Guaifenesin [Robitussin] 10 ml GT Q4H PRN PRN udc 01/02/18 Levothyroxine [Synthroid] 88 mcg GT DAILY@0600 tablet 01/02/18 Lidocaine 2% Viscous [Xylocaine Viscous] 5 ml PO Q4H PRN PRN udc 01/02/18 Metoprolol Tartrate [Lopressor (beta cirilo)] 25 mg GT BID tablet 01/02/18 Mirtazapine [Remeron] 15 mg GT QHS tablet 01/02/18 Vancomycin 1,250 mg IV Q12H vial 01/02/18 morphine solution (IR) [Roxanol (IR oral solution)] 5 mg SL Q4H PRN 2 Days #6 po.syringe 01/02/18 Following Prescrptions Were Given to Patient: Clonazepam [Klonopin] 0.5 mg GT Q12H 2 Days #4 tab morphine solution (IR) [Roxanol (IR oral solution)] 5 mg SL Q4H PRN 2 Days #6 po.syringe PRN Reason: Pain Primary Care Physician: Christo Wilde MD [Primary Care Provider] - Please follow up with your Primary Care Physician in: 2 weeks Please Follow Up With: Yadira Vera MD When: 1-2 weeks Please Follow Up With: David Vasquez MD When: 1-2 weeks Please Follow Up With: Christo Wilde MD When: 2 weeks Disposition: Retirement facility Minutes spent on discharge:: 40 Patient Condition:: Stable Medical Necessity - Tobacco Use Smoking Status: Never smoker Tobacco Use: Non-smoker Meaningful Use Info Meaningful Use Diagnoses (Choose all that apply): None applicable <Alex Patricia - Last Filed: 01/02/18 15:12> Discharge Date and Diagnosis - Secondary Discharge Diagnosis Chronic Problems (Last Updated 12/14/17 @ 17:06 by Guillermina Vincent DO) Thrush, oral (Chronic) Community acquired pneumonia due to Klebsiella pneumoniae (Chronic) Severe malnutrition (Chronic) Atrial fibrillation with RVR (Chronic) Acute and chronic respiratory failure with hypoxia (Chronic) 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) Chronic respiratory failure with hypoxia (Chronic) NEPTALI (obstructive sleep apnea) (Chronic) PND (paroxysmal nocturnal dyspnea) (Chronic) Bronchiectasis (Chronic) Pulmonary hypertension (Chronic) Takotsubo cardiomyopathy (Chronic) EF in August of 2016 was 45-50%, previously 20% Chronic atrial fibrillation (Chronic) Hypomagnesemia (Chronic) Recheck magnesium in 48 hours Hospital Course and Treatment Summary of Care Provided: The patient is a 72 year old F with multiple comorbidities including right upper lobe lung resection as a result of aspergillosis, recurrent sinusitis with multiple organisms admitted with progressive shortness of breath an assessment of recurrent sinusitis with multiple organisms. Patient was also found to have recurrent dysphagia underwent PEG tube placement. Details of patient hospital stay is as detailed above by Matteo Silva. Patient was seen and examined on the day of discharge. Did review the discharge instructions as well as discharge medications. Do concur with notes detailed above. Total time spent on discharge process 45 minutes [] Code Visit Inpatient E&M: 17125 Disch Hosp
== END 2018-01-02 14:07 | disposition skilled nursing facility (03) | DRG 391 ==
LOC: ED 14:54 → PCU 15:50
PROVIDERS: Internal Medicine; Nurse Practitioner Family; Surgery; Admitting Provider Internal Medicine; Emergency Provider Emergency Medicine; Family Provider Family Medicine; PCP Family Medicine; Visit Provider Internal Medicine
PROC: 0DJ08ZZ Inspection of Upper Intestinal Tract, Via Natural or Artificial Opening Endoscopic (ICD-10-PCS; CPT 43235; principal; 2017-12-27 12:10)
DX: R13.14 Dysphagia, pharyngoesophageal phase (principal); E43 Unspecified severe protein-calorie malnutrition; J96.21 Acute and chronic respiratory failure with hypoxia; Z68.1 Body mass index [BMI] 19.9 or less, adult; E87.3 Alkalosis; I51.81 Takotsubo syndrome; I48.2 Chronic atrial fibrillation; I27.20 Pulmonary hypertension, unspecified; G47.33 Obstructive sleep apnea (adult) (pediatric); K29.70 Gastritis, unspecified, without bleeding; I10 Essential (primary) hypertension; Z99.81 Dependence on supplemental oxygen; F32.9 Major depressive disorder, single episode, unspecified; E83.42 Hypomagnesemia; E03.9 Hypothyroidism, unspecified; Z86.14 Personal history of Methicillin resistant Staphylococcus aureus infection; J01.90 Acute sinusitis, unspecified; J34.2 Deviated nasal septum; R29.810 Facial weakness; E87.6 Hypokalemia; R73.9 Hyperglycemia, unspecified; G93.89 Other specified disorders of brain; B95.62 Methicillin resistant Staphylococcus aureus infection as the cause of diseases classified elsewhere; B96.1 Klebsiella pneumoniae [K. pneumoniae] as the cause of diseases classified elsewhere; Z87.01 Personal history of pneumonia (recurrent); Z79.01 Long term (current) use of anticoagulants; K59.00 Constipation, unspecified; J44.9 Chronic obstructive pulmonary disease, unspecified
CPT/HCPCS: 36415; 36600; 70450; 70486; 71045; 71046; 74230; 80048; 80053; 80061; 80202; 82607; 82728; 82746; 82803; 82962; 83036; 83540; 83550; 83605; 83735; 84100; 84484; 85025; 85027; 85610; 85730; 87070; 87075; 87077; 87186; 87205; 88305; 88312; 92507; 92526; 92611; 93005; 94640; 94760; 97110; 97161; 97166; 97530; 97802; 97803; 99283; J1756; J7030; J7040; J7050; A4216; J0295; J1940; J2405

== ENCOUNTER 2018-01-02 14:25 | Inpatient (IN) | payer MEDICARE, OTHER, SELFPAY ==
[2018-01-02 14:41] VITALS: BP 127/66; PULSE 75; RESP 18; TEMP 37.7; O2SAT 75; BMI 16.3
[2018-01-02 14:52] VITALS: BMI 16.4
[2018-01-02] MEDS: morphine (oral solution) 10MG/0.5ML Syringe 5 MG SL (15:23)
[2018-01-02] MEDS: Jevity 1.5 1,000 ML 45 ML GT (15:32)
[2018-01-02 15:54] VITALS: BP 107/47; PULSE 78; TEMP 37.3; O2SAT 95
[2018-01-02 16:08] VITALS: O2SAT 98
[2018-01-02] MEDS: Calcium Carb/Vitamin D 1 TABLET Tablet PO (18:33)
[2018-01-02 18:34] VITALS: BP 107/47; PULSE 78
[2018-01-02] MEDS: dilTIAZem 60 MG Tablet GT ×2 (18:34→23:56)
[2018-01-02] MEDS: Metoprolol Tartrate 25 MG Tablet GT (18:34)
[2018-01-02] MEDS: APIXABAN 2.5 MG TABLET GT (18:34)
[2018-01-02 19:40] VITALS: PULSE 82; RESP 16
[2018-01-02] MEDS: Albuterol 2.5 MG/3 ML VIAL.NEB. INHALATION (19:40)
[2018-01-02] MEDS: Budesonide Respules 0.5 MG/2 ML AMPUL.NEB. 0.25 MG INHALATION (19:40)
--- NOTE | 2018-01-02 20:54 | PCM.HP.STD ---
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 The patient is a 72 year old Female with below past medical history presented to [facility] Emergency Department 12/26/2017 with shortness of breath. 12/26/2017 EKG showed atrial fibrillation. Shortness of breath, unable to swallow. Recent admission for pneumonia requiring ventilator. Productive cough. Unable to eat. Albuterol, Atrovent given. WBC 11.8, Hemoglobin 11.9, BMP okay, Troponin negative. Lactic Acid normal. Coughing up thick irving sputum continuously. Failed bedside swallow evaluation. 12/26/2017 Admit to Hospital. IV Diflucan, IV hydration for presumed candidal esophagitis. IV Metoprolol for atrial fibrillation rate control. 12/27/2017 CT head showed nasal septal deviation to left. 12/28/2017 MBS recommended NPO. 12/27/2017 Dr. Chowdary performed EGD showing severe gastritis, post nasal purulent drainage. 12/29/2017 Dr. Landa noted sinusitis, cultures growing MRSA, K. Pneumoniae. Recommend IV Vancomycin, Unasyn for treatment. 12/30/2017 Dr. Vera placed PEG tube. Antibiotics changed to Vancomycin, Rocephin x 4 weeks, stop date 01/29/2018. ENT recommended no surgical intervention at this time. 01/02/2018 Admit to TCU for rehabilitation, strengthening, speech therapy for advancement of diet, tube feeding, IV antibiotics, prior to discharge home with spouse. 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) Chronic respiratory failure with hypoxia (Chronic) NEPTALI (obstructive sleep apnea) (Chronic) PND (paroxysmal nocturnal dyspnea) (Chronic) Bronchiectasis (Chronic) Pulmonary hypertension (Chronic) Takotsubo cardiomyopathy (Chronic) EF in August of 2016 was 45-50%, previously 20% Chronic atrial fibrillation (Chronic) Hypomagnesemia (Chronic) Recheck magnesium in 48 hours Allergies sulfamethoxazole [From Bactrim] Allergy (Verified 12/26/17 11:28) Hives PT STATES NOT ALLERGIC tetracycline Allergy (Verified 12/26/17 11:28) Hives trimethoprim [From Bactrim] Allergy (Verified 12/26/17 11:28) Hives verapamil Allergy (Verified 12/26/17 11:28) Unknown itraconazole Adverse Reaction (Verified 12/26/17 11:28) chest tightness w/ upper and loewr extremity weakness warfarin [From Coumadin] Adverse Reaction (Verified 12/26/17 11:28) gi bleed SODIUM PENTATHOL Allergy (Uncoded 12/26/17 11:28) jaundice/hives JAUNDICE Home Medications: Ambulatory Orders Medication Instructions Recorded Cholecalciferol (Vitamin D3) 2,000 unit PO DAILY 10/30/16 [Vitamin D3] Albuterol Inhaler [Ventolin Hfa] 1 - 2 puff INHALATION Q2H PRN PRN 11/21/16 #1 inhaler Formoterol Fumarate [Perforomist] 20 mcg INHALATION BID 04/18/17 Budesonide [Pulmicort] 0.25 mg IH BID 09/08/17 fluticasone 50 mcg/actuation nasal 2 spray INTRANASAL DAILY #16 g 11/28/17 spray,suspension Methadone HCl 5 mg PO BID 12/06/17 Calcium Carb/Vitamin D [Os-Zach 1 tablet PO BIDCM 12/26/17 500MG + D] Apixaban [Eliquis] 2.5 mg GT BID tablet 01/02/18 Ceftriaxone [Rocephin] 1 gm IV Q24 bag 01/02/18 Clonazepam [Klonopin] 0.5 mg GT Q12H 2 Days #4 tab 01/02/18 Diltiazem [Cardizem] 60 mg GT Q6 tablet 01/02/18 Famotidine [Pepcid] 40 mg GT DAILY tablet 01/02/18 Guaifenesin [Robitussin] 10 ml GT Q4H PRN PRN udc 01/02/18 Levothyroxine [Synthroid] 88 mcg GT DAILY@0600 tablet 01/02/18 Lidocaine 2% Viscous [Xylocaine 5 ml PO Q4H PRN PRN udc 01/02/18 Viscous] Metoprolol Tartrate [Lopressor 25 mg GT BID tablet 01/02/18 (beta cirilo)] Mirtazapine [Remeron] 15 mg GT QHS tablet 01/02/18 Vancomycin 1,250 mg IV Q12H vial 01/02/18 morphine solution (IR) [Roxanol 5 mg SL Q4H PRN 2 Days #6 01/02/18 (IR oral solution)] po.syringe Surgical History: cholecystectomy, hysterectomy, - - Lobectomy for aspergillosis. 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 Lives: Spouse/ Significant Other Smoking Status: Never smoker Tobacco Use: Non-smoker Alcohol: None Drugs: None - *Family History Maternal History Items: No pertinent history Paternal History Items: Cancer Review of Systems Constitutional: Denies: Chills, Fever, Weight Change HEENT: Denies: Head Aches, Sinus Congestion, Sinus Drainage Cardiovascular: Denies: Chest Pain, Palpitations Respiratory: Denies: Cough, Shortness of breath at rest, Sputum production Gastrointestinal: Denies: Abdominal Pain, Nausea, Vomiting Genitourinary: Denies: Dysuria Musculoskeletal: Denies: Joint Pain, Joint Tenderness Skin: Denies: Rash, Wounds Neurological: Denies: Numbness, Tingling, Focal weakness Psychiatric: Denies: Anxiety, Depression, Homicidal Ideations, Suicidal Ideations Hematologic/ Lymphatic: Denies: Easy Bruising, Easy Bleeding VTE Information - Inpt Only VTE Present on Admission: No VTE Mechan Device Prophylaxis: Knee High EDY Hose VTE Pharm Prophylaxis ordered?: No Reason prophylaxis not ordered:: Treatment Not Indicated Patient Problems: Active and Suspected Problems (Last Updated 12/14/17 @ 17:06 by Guillermina Vincent DO) Shortness of breath (Acute) Thrush (Acute) - Physical Exam General: Alert, Oriented x3, Cooperative HEENT: Atraumatic, PERRLA, EOMI, Normocephalic Neck: Supple, No JVD, Negative Carotid Bruits Lungs: Clear to auscultation, Normal air movement Cardiovascular: Regular rate, No murmurs Abdomen: Bowel Sounds Present, Soft, Non Tender, - - PEG tube. Extremities: No edema, Capillary Refill Less than 3 Seconds, - - Right upper extremity PICC line. Skin: No rashes, No breakdown Musculoskeletal: No Tenderness to Palpation of Joints or Extremities Neurological: Cranial nerves II-XII grossly intact Psych/Mental Status: Normal Affect, Appropriate Vital Signs Temp Pulse Resp BP Pulse Ox 99.2 F H 78 18 107/47 L 98 01/02/18 15:54 01/02/18 18:34 01/02/18 14:41 01/02/18 18:34 01/02/18 16:08 Oxygen Flow Rate (L/min) 2 Oxygen Delivery Method Nasal Cannula Weight: 46 kg Body Mass Index (BMI) 16.3 Assessment/Plan Active and Suspected Problems (Last Updated 12/14/17 @ 17:06 by Guillermina Vincent DO) Shortness of breath (Acute) Thrush (Acute) 72 year old female with below past medical history hospitalized for dysphagia requiring PEG tube, secondary to severe sinusitis from MRSA, K. Pneumoniae, admitted to TCU with debility here for rehabilitation, strengthening, advancement of diet with speech therapy, intravenous antibiotics, prior to discharge home with spouse. Debility - PT/OT. Dysphagia - ST to advance diet. Pain - Roxanol 5ML SL Q4H PRN moderate pain. Bowel - Miralax 17GM daily. Pneumonia vaccination - Administer Prevnar 13 and/or Pneumovax 23 as necessary. DVT prophylaxis - not necessary, already on Eliquis. COPD - Albuterol 2.5MG Q6HWA, Albuterol MDI 1-2 puff Q2H PRN, Pulmicort 0.25MG Q12H. Atrial Fibrillation - Diltiazem 60MG Q6H, Eliquis 2.5MG BID. Calcium deficiency - Oscal D 500MG BID. Sinusitis (MRSA, K. Pneumoniae) - Rocephin 1GM IV Q24H, Vancomycin 1250MG IV Q12H thru 01/29/2018, Dr. Landa. Vitamin D deficiency - D3 2000IU daily. Anxiety - Clonazepam 0.5MG Q12H. GERD - Famotidine 40MG daily. Rhinitis - Flonase 2 sprays daily. Congestion - Robitussin 10ML Q4H PRN. Nutrition - Jevity 1.5 45ML/hour. Hypothyroidism - Levothyroxine 88MCG daily Odynophagia - Xylocaine viscous 5ML Q4H PRN. Insomnia/depression/appetite loss - Mirtazapine 15MG QHS.
--- NOTE | 2018-01-02 21:12 | HP.PCM_ITS ---
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 The patient is a 72 year old Female with below past medical history presented to [facility] Emergency Department 12/26/2017 with shortness of breath. 12/26/2017 EKG showed atrial fibrillation. Shortness of breath, unable to swallow. Recent admission for pneumonia requiring ventilator. Productive cough. Unable to eat. Albuterol, Atrovent given. WBC 11.8, Hemoglobin 11.9, BMP okay, Troponin negative. Lactic Acid normal. Coughing up thick irving sputum continuously. Failed bedside swallow evaluation. 12/26/2017 Admit to Hospital. IV Diflucan, IV hydration for presumed candidal esophagitis. IV Metoprolol for atrial fibrillation rate control. 12/27/2017 CT head showed nasal septal deviation to left. 12/28/2017 MBS recommended NPO. 12/27/2017 Dr. Chowdary performed EGD showing severe gastritis, post nasal purulent drainage. 12/29/2017 Dr. Landa noted sinusitis, cultures growing MRSA, K. Pneumoniae. Recommend IV Vancomycin, Unasyn for treatment. 12/30/2017 Dr. Vera placed PEG tube. Antibiotics changed to Vancomycin, Rocephin x 4 weeks, stop date 01/29/2018. ENT recommended no surgical intervention at this time. 01/02/2018 Admit to TCU for rehabilitation, strengthening, speech therapy for advancement of diet, tube feeding, IV antibiotics, prior to discharge home with spouse. 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) Chronic respiratory failure with hypoxia (Chronic) NEPTALI (obstructive sleep apnea) (Chronic) PND (paroxysmal nocturnal dyspnea) (Chronic) Bronchiectasis (Chronic) Pulmonary hypertension (Chronic) Takotsubo cardiomyopathy (Chronic) EF in August of 2016 was 45-50%, previously 20% Chronic atrial fibrillation (Chronic) Hypomagnesemia (Chronic) Recheck magnesium in 48 hours Allergies sulfamethoxazole [From Bactrim] Allergy (Verified 12/26/17 11:28) Hives PT STATES NOT ALLERGIC tetracycline Allergy (Verified 12/26/17 11:28) Hives trimethoprim [From Bactrim] Allergy (Verified 12/26/17 11:28) Hives verapamil Allergy (Verified 12/26/17 11:28) Unknown itraconazole Adverse Reaction (Verified 12/26/17 11:28) chest tightness w/ upper and loewr extremity weakness warfarin [From Coumadin] Adverse Reaction (Verified 12/26/17 11:28) gi bleed SODIUM PENTATHOL Allergy (Uncoded 12/26/17 11:28) jaundice/hives JAUNDICE Home Medications: Ambulatory Orders Medication Instructions Recorded Cholecalciferol (Vitamin D3) 2,000 unit PO DAILY 10/30/16 [Vitamin D3] Albuterol Inhaler [Ventolin Hfa] 1 - 2 puff INHALATION Q2H PRN PRN 11/21/16 #1 inhaler Formoterol Fumarate [Perforomist] 20 mcg INHALATION BID 04/18/17 Budesonide [Pulmicort] 0.25 mg IH BID 09/08/17 fluticasone 50 mcg/actuation nasal 2 spray INTRANASAL DAILY #16 g 11/28/17 spray,suspension Methadone HCl 5 mg PO BID 12/06/17 Calcium Carb/Vitamin D [Os-Zach 1 tablet PO BIDCM 12/26/17 500MG + D] Apixaban [Eliquis] 2.5 mg GT BID tablet 01/02/18 Ceftriaxone [Rocephin] 1 gm IV Q24 bag 01/02/18 Clonazepam [Klonopin] 0.5 mg GT Q12H 2 Days #4 tab 01/02/18 Diltiazem [Cardizem] 60 mg GT Q6 tablet 01/02/18 Famotidine [Pepcid] 40 mg GT DAILY tablet 01/02/18 Guaifenesin [Robitussin] 10 ml GT Q4H PRN PRN udc 01/02/18 Levothyroxine [Synthroid] 88 mcg GT DAILY@0600 tablet 01/02/18 Lidocaine 2% Viscous [Xylocaine 5 ml PO Q4H PRN PRN udc 01/02/18 Viscous] Metoprolol Tartrate [Lopressor 25 mg GT BID tablet 01/02/18 (beta cirilo)] Mirtazapine [Remeron] 15 mg GT QHS tablet 01/02/18 Vancomycin 1,250 mg IV Q12H vial 01/02/18 morphine solution (IR) [Roxanol 5 mg SL Q4H PRN 2 Days #6 01/02/18 (IR oral solution)] po.syringe Surgical History: cholecystectomy, hysterectomy, - - Lobectomy for aspergillosis. 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 Lives: Spouse/ Significant Other Smoking Status: Never smoker Tobacco Use: Non-smoker Alcohol: None Drugs: None - *Family History Maternal History Items: No pertinent history Paternal History Items: Cancer Review of Systems Constitutional: Denies: Chills, Fever, Weight Change HEENT: Denies: Head Aches, Sinus Congestion, Sinus Drainage Cardiovascular: Denies: Chest Pain, Palpitations Respiratory: Denies: Cough, Shortness of breath at rest, Sputum production Gastrointestinal: Denies: Abdominal Pain, Nausea, Vomiting Genitourinary: Denies: Dysuria Musculoskeletal: Denies: Joint Pain, Joint Tenderness Skin: Denies: Rash, Wounds Neurological: Denies: Numbness, Tingling, Focal weakness Psychiatric: Denies: Anxiety, Depression, Homicidal Ideations, Suicidal Ideations Hematologic/ Lymphatic: Denies: Easy Bruising, Easy Bleeding VTE Information - Inpt Only VTE Present on Admission: No VTE Mechan Device Prophylaxis: Knee High EDY Hose VTE Pharm Prophylaxis ordered?: No Reason prophylaxis not ordered:: Treatment Not Indicated Patient Problems: Active and Suspected Problems (Last Updated 12/14/17 @ 17:06 by Guillermina Vincent DO) Shortness of breath (Acute) Thrush (Acute) - Physical Exam General: Alert, Oriented x3, Cooperative HEENT: Atraumatic, PERRLA, EOMI, Normocephalic Neck: Supple, No JVD, Negative Carotid Bruits Lungs: Clear to auscultation, Normal air movement Cardiovascular: Regular rate, No murmurs Abdomen: Bowel Sounds Present, Soft, Non Tender, - - PEG tube. Extremities: No edema, Capillary Refill Less than 3 Seconds, - - Right upper extremity PICC line. Skin: No rashes, No breakdown Musculoskeletal: No Tenderness to Palpation of Joints or Extremities Neurological: Cranial nerves II-XII grossly intact Psych/Mental Status: Normal Affect, Appropriate Vital Signs Temp Pulse Resp BP Pulse Ox 99.2 F H 78 18 107/47 L 98 01/02/18 15:54 01/02/18 18:34 01/02/18 14:41 01/02/18 18:34 01/02/18 16:08 Oxygen Flow Rate (L/min) 2 Oxygen Delivery Method Nasal Cannula Weight: 46 kg Body Mass Index (BMI) 16.3 Assessment/Plan Active and Suspected Problems (Last Updated 12/14/17 @ 17:06 by Guillermina Vincent DO) Shortness of breath (Acute) Thrush (Acute) 72 year old female with below past medical history hospitalized for dysphagia requiring PEG tube, secondary to severe sinusitis from MRSA, K. Pneumoniae, admitted to TCU with debility here for rehabilitation, strengthening, advancement of diet with speech therapy, intravenous antibiotics, prior to discharge home with spouse. * Debility - PT/OT. * Dysphagia - ST to advance diet. * Pain - Roxanol 5ML SL Q4H PRN moderate pain. * Bowel - Miralax 17GM daily. * Pneumonia vaccination - Administer Prevnar 13 and/or Pneumovax 23 as necessary. * DVT prophylaxis - not necessary, already on Eliquis. * COPD - Albuterol 2.5MG Q6HWA, Albuterol MDI 1-2 puff Q2H PRN, Pulmicort 0.25MG Q12H. * Atrial Fibrillation - Diltiazem 60MG Q6H, Eliquis 2.5MG BID. * Calcium deficiency - Oscal D 500MG BID. * Sinusitis (MRSA, K. Pneumoniae) - Rocephin 1GM IV Q24H, Vancomycin 1250MG IV Q12H thru 01/29/2018, Dr. Landa. * Vitamin D deficiency - D3 2000IU daily. * Anxiety - Clonazepam 0.5MG Q12H. * GERD - Famotidine 40MG daily. * Rhinitis - Flonase 2 sprays daily. * Congestion - Robitussin 10ML Q4H PRN. * Nutrition - Jevity 1.5 45ML/hour. * Hypothyroidism - Levothyroxine 88MCG daily * Odynophagia - Xylocaine viscous 5ML Q4H PRN. * Insomnia/depression/appetite loss - Mirtazapine 15MG QHS.
[2018-01-02] MEDS: clonazePAM 0.5 MG Tablet GT (21:22)
[2018-01-02] MEDS: Mirtazapine 15 MG Tablet GT (21:22)
[2018-01-02] MEDS: 0.9% NaCl PICC Flush IV (21:31)
--- NOTE | 2018-01-03 00:02 | NURSING ---
Midnight meds given at this time via PEG tube and patient turned and repositioned onto left side at this time, HOB 45 degrees.
[2018-01-03 06:27] VITALS: BP 122/56; PULSE 103
[2018-01-03 06:35] VITALS: PULSE 103
[2018-01-03] MEDS: Metoprolol Tartrate 25 MG Tablet GT ×2 (06:35→17:52)
[2018-01-03] MEDS: Levothyroxine 88 MCG Tablet GT (06:35)
[2018-01-03] MEDS: Fluticasone 0.05% 1 SPRAY NASAL.SRY 2 SPRAY NASAL (06:35)
[2018-01-03] MEDS: Polyethylene Glycol 3350 17 GM PACKET GT (06:35)
[2018-01-03] MEDS: dilTIAZem 60 MG Tablet GT ×4 (06:35→23:44)
[2018-01-03] MEDS: Famotidine 20 MG Tablet 40 MG GT (06:35)
[2018-01-03] MEDS: APIXABAN 2.5 MG TABLET GT ×2 (06:35→17:52)
[2018-01-03 06:46] LABS: Absolute Lymphocyte Count 1.03 X10^3/ul (0.83-4.51); Basophil# 0.01 X10^3/uL; Basophil% 0.2 % (0-1); Eosinophil# 0.12 X10^3/uL; Eosinophils% 2.1 % (0-5); Hematocrit 32.8 % (37-47); Hemoglobin 10.2 g/dl (12.0-15.0); Lymphocyte # 1.03 X10^3/ul (4.0); Lymphocyte % 18.2 % (19-41); Mean Corp Hgb Conc 31.1 g/gl (32-36); Mean Corpuscular Hgb 26.3 pg (27.0-32.0); Mean Corpuscular Volume 84.5 fL (81-99); Mean Platelet Vol. 11.2 fl (6.2-12.0); Monocyte# 0.52 X10^3/uL; Monocyte% 9.2 % (0-10); Neutrophil # 3.96 X10^3/uL (2.7-7.7); Neutrophil % 70.1 % (47-70); Platelet Count 110 K/mm3 (150-450); RBC Distribution Width CV 17.7 % (11.6-14.6); RBC Distribution Width SD 54.2 fl (35.1-43.9); Red Blood Count 3.88 M/mm3 (4.2-5.4); White Blood Count 5.7 K/mm3 (4.4-11.0)
[2018-01-03 06:48] LABS: POSITIVE COUNT NO; POSITIVE DIFFERENTIAL NO; POSITIVE MORPHOLOGY NO
[2018-01-03 06:50] VITALS: PULSE 79; RESP 16; O2SAT 95
[2018-01-03] MEDS: Budesonide Respules 0.5 MG/2 ML AMPUL.NEB. 0.25 MG INHALATION (06:50)
[2018-01-03] MEDS: Albuterol 2.5 MG/3 ML VIAL.NEB. INHALATION (06:50)
[2018-01-03 07:04] LABS: Anion Gap 4 (5-15); BUN 12 mg/dL (7-18); Calcium,Total 8.1 mg/dL (8.5-10.1); Chloride 102 mmol/L (98-107); EST Glomerular Filtration Rate 231 mL/min (>60); Est Glom Filt Rate - Afr Amer 280 mL/min (>60); Estimated Creatinine Clearance 35.84 ml/min; Glucose 106 mg/dL (74-106); Potassium 3.5 mmol/L (3.5-5.1); Sodium Level 140 mmol/L (136-145)
[2018-01-03] MEDS: clonazePAM 0.5 MG Tablet GT ×2 (08:25→20:59)
[2018-01-03] MEDS: Calcium Carb/Vitamin D 1 TABLET Tablet PO ×2 (08:25→17:52)
[2018-01-03] MEDS: morphine (oral solution) 10MG/0.5ML Syringe 5 MG SL ×3 (08:26→20:59)
[2018-01-03] MEDS: 0.9% NaCl PICC Flush IV ×3 (09:29→20:59)
[2018-01-03] MEDS: Tuberculin,Purif.prot.deriv. 50 TU/ML Vial 5 ML ID (13:29)
[2018-01-03] MEDS: Jevity 1.5 1,000 ML 45 ML GT (13:29)
[2018-01-03] MEDS: Ceftriaxone 1 GM/50 ML BAG IV (13:47)
--- NOTE | 2018-01-03 13:58 | PCM.PN.RX ---
<Elver Phipps D - Last Filed: 01/03/18 13:58> Progress Note - Pharmacy Subjective: TCU Admission Objective: Allergies sulfamethoxazole [From Bactrim] Allergy (Verified 12/26/17 11:28) Hives PT STATES NOT ALLERGIC tetracycline Allergy (Verified 12/26/17 11:28) Hives trimethoprim [From Bactrim] Allergy (Verified 12/26/17 11:28) Hives verapamil Allergy (Verified 12/26/17 11:28) Unknown itraconazole Adverse Reaction (Verified 12/26/17 11:28) chest tightness w/ upper and loewr extremity weakness warfarin [From Coumadin] Adverse Reaction (Verified 12/26/17 11:28) gi bleed SODIUM PENTATHOL Allergy (Uncoded 12/26/17 11:28) jaundice/hives JAUNDICE Home Medications Medication Instructions Recorded Cholecalciferol (Vitamin D3) 2,000 unit PO DAILY 10/30/16 [Vitamin D3] Albuterol Inhaler [Ventolin Hfa] 1 - 2 puff INHALATION Q2H PRN PRN 11/21/16 #1 inhaler Formoterol Fumarate [Perforomist] 20 mcg INHALATION BID 04/18/17 Budesonide [Pulmicort] 0.25 mg IH BID 09/08/17 fluticasone 50 mcg/actuation nasal 2 spray INTRANASAL DAILY #16 g 11/28/17 spray,suspension Methadone HCl 5 mg PO BID 12/06/17 Calcium Carb/Vitamin D [Os-Zach 1 tablet PO BIDCM 12/26/17 500MG + D] Apixaban [Eliquis] 2.5 mg GT BID tablet 01/02/18 Ceftriaxone [Rocephin] 1 gm IV Q24 bag 01/02/18 Clonazepam [Klonopin] 0.5 mg GT Q12H 2 Days #4 tab 01/02/18 Diltiazem [Cardizem] 60 mg GT Q6 tablet 01/02/18 Famotidine [Pepcid] 40 mg GT DAILY tablet 01/02/18 Guaifenesin [Robitussin] 10 ml GT Q4H PRN PRN udc 01/02/18 Levothyroxine [Synthroid] 88 mcg GT DAILY@0600 tablet 01/02/18 Lidocaine 2% Viscous [Xylocaine 5 ml PO Q4H PRN PRN udc 01/02/18 Viscous] Metoprolol Tartrate [Lopressor 25 mg GT BID tablet 01/02/18 (beta el)] Mirtazapine [Remeron] 15 mg GT QHS tablet 01/02/18 Vancomycin 1,250 mg IV Q12H vial 01/02/18 morphine solution (IR) [Roxanol 5 mg SL Q4H PRN 2 Days #6 01/02/18 (IR oral solution)] po.syringe Current Medications Generic Name Dose Route Start Last Admin Trade Name Freq PRN Reason Stop Dose Admin Albuterol Sulfate 1 - 2 puff 01/02/18 14:32 Ventolin Hfa (Sp) INHALATION Q2H PRN PRN SOB &/OR WHEEZING Albuterol Sulfate 2.5 mg 01/02/18 15:33 01/03/18 06:50 Ventolin Aerosols INHALATION 2.5 mg Q6HWA.RT OBINNA Administration Apixaban 2.5 mg 01/02/18 18:00 01/03/18 06:35 Eliquis GT 2.5 mg BID OBINNA Administration Budesonide 0.25 mg 01/02/18 15:45 01/03/18 06:50 Pulmicort Aerosol INHALATION 0.25 mg Q12H.RT OBINNA Administration Calcium/Vitamin D 1 tablet 01/02/18 17:00 01/03/18 08:25 Os-Zach 500mg + D PO 1 tablet BIDCM OBINNA Administration Cholecalciferol 2,000 unit 01/03/18 06:00 01/03/18 06:35 Vitamin D PO 2,000 unit DAILY OBINNA Administration Clonazepam 0.5 mg 01/02/18 21:00 01/03/18 08:25 Klonopin GT 0.5 mg Q12H OBINNA Administration Diltiazem HCl 60 mg 01/02/18 18:00 01/03/18 13:40 Cardizem GT 60 mg Q6 OBINNA Administration Famotidine 40 mg 01/03/18 06:00 01/03/18 06:35 Pepcid GT 40 mg DAILY OBINNA Administration Fluticasone Propionate 2 spray 01/03/18 06:00 01/03/18 06:35 Flonase Nasal [place] NASAL 2 spray DAILY OBINNA Administration Guaifenesin 10 ml 01/02/18 14:32 Robitussin GT Q4H PRN PRN CONGESTION Heparin Sodium (Beef Lung) 500 unit 01/02/18 21:19 Heparin 500 Unit/5 Ml (100/Ml) IV UD PRN HEPARIN FLUSH Enteral Nutritional Formula 1,000 mls @ 45 mls/hr 01/02/18 14:45 01/03/18 13:29 Jevity 1.5 GT 45 mls/hr .[id number] OBINNA Administration Ceftriaxone Sodium 1 gm in 50 mls @ 100 mls/hr 01/03/18 10:00 01/03/18 13:47 Rocephin IV 01/29/18 23:59 100 mls/hr Q24 OBINNA Administration Vancomycin HCl 1,250 mg/ 275 mls @ 183.333 mls/hr 01/02/18 21:00 01/03/18 09:29 Sodium Chloride IV 01/29/18 23:59 183.333 mls/hr Q12H OBINNA Administration Sodium Chloride 250 mls @ 15 mls/hr 01/02/18 21:19 IV .[id number] PRN SALINE FLUSH Levothyroxine Sodium 88 mcg 01/03/18 06:00 01/03/18 06:35 Synthroid GT 88 mcg DAILY@0600 OBINNA Administration Lidocaine HCl 5 ml 01/02/18 14:32 Xylocaine Viscous PO Q4H PRN PRN PAIN Metoprolol Tartrate 25 mg 01/02/18 18:00 01/03/18 06:35 Lopressor (Beta El) GT 25 mg BID OBINNA Administration Mirtazapine 15 mg 01/02/18 22:00 01/02/18 21:22 Remeron GT 15 mg QHS OBINNA Administration Morphine Sulfate 5 mg 01/02/18 14:32 01/03/18 08:26 Roxanol (Ir Oral Solution) SL 5 mg Q4H PRN Administration PAIN Polyethylene Glycol 17 gm 01/03/18 06:00 01/03/18 06:35 Miralax GT 17 gm DAILY OBINNA Administration Sodium Chloride 10 - 20 ml 01/02/18 21:19 01/03/18 09:29 IV 10 ml UD PRN Administration PICC FLUSH Tuberculin PPD 5 tu 01/10/18 10:00 Tubersol, Aplisol, Ppd ID 01/10/18 10:01 X1 ONE Problem List (Last Updated 12/14/17 @ 17:06 by M Tiki Sementi, DO) Shortness of breath (Acute) Thrush (Acute) Vital Signs Temp Pulse Resp BP Pulse Ox 99.2 F H 79 16 122/56 H 95 01/02/18 15:54 01/03/18 06:50 01/03/18 06:50 01/03/18 06:27 01/03/18 06:50 Oxygen Flow Rate (L/min) 3 Oxygen Delivery Method Nasal Cannula Weight: 46.05 kg Body Mass Index (BMI) 16.3 Sodium 140 mmol/L (136-145) 01/03/18 05:35 Potassium 3.5 mmol/L (3.5-5.1) 01/03/18 05:35 Chloride 102 mmol/L (98-107) 01/03/18 05:35 Carbon Dioxide 34.0 mmol/L (21.0-32.0) H 01/03/18 05:35 Anion Gap 4 (5-15) L 01/03/18 05:35 BUN 12 mg/dL (7-18) 01/03/18 05:35 Creatinine 0.30 mg/dL (0.55-1.02) L 01/03/18 05:35 Est GFR (MDRD) Af Amer 280 mL/min (>60) 01/03/18 05:35 Est GFR (MDRD) Non-Af 231 mL/min (>60) 01/03/18 05:35 BUN/Creatinine Ratio 40.0 RATIO (10-20) H 01/03/18 05:35 Glucose 106 mg/dL (74-106) 01/03/18 05:35 Assessment/Plan: 1) Pain Morphine as needed, lidocaine orally (topical) as needed. Continue to monitor daily pain scores, prn medication use. 2) ID Vancomycin every 12 hours until 01/29/18, ceftriaxone daily until 01/29. Pharmacy monitoring and adjusting dose as needed, ID following. No WBC count elevation, afebrile. Continue to monitor s/s infection. 3) AFib Diltiazem, apixaban, metoprolol. Avg HR within goal range, BP within goal range, Hgb/Hct stable. Continue to monitor BP/HR, s/s bleeding. 4) Pulm Guaifenesin as needed, fluticasone spray daily, albuterol aerosols scheduled, albuterol inhaler as needed, budesonide aerosols twice daily. Continue to monitor prn medication use, for shortness of breath. 5) Hypothyroidism Levothyroxine daily. Continue to monitor s/s hyper/hypothyroidism. 6) Nutrition Continuous Jevity tube feeding, Ca/D. Continue to monitor clinically. 7) GI Famotidine daily. Continue to monitor s/s GI distress. Psychotropic Medications: 8) Depression/Anxiety Mirtazapine at HS, clonazepam twice daily. Continue to monitor s/s depression/anxiety. Unnecessary Medications: None Bowel Regimen: 9) PEG daily. Continue to monitor for constipation/diarrhea. Date of Note:: 01/03/18 - Provider Comments Provider responsibility: Provider responsible to enter orders to implement recommendations <Corbin Valverde Chi - Last Filed: 01/03/18 17:42> Progress Note - Pharmacy Subjective: [] Objective: Allergies sulfamethoxazole [From Bactrim] Allergy (Verified 12/26/17 11:28) Hives PT STATES NOT ALLERGIC tetracycline Allergy (Verified 12/26/17 11:28) Hives trimethoprim [From Bactrim] Allergy (Verified 12/26/17 11:28) Hives verapamil Allergy (Verified 12/26/17 11:28) Unknown itraconazole Adverse Reaction (Verified 12/26/17 11:28) chest tightness w/ upper and loewr extremity weakness warfarin [From Coumadin] Adverse Reaction (Verified 12/26/17 11:28) gi bleed SODIUM PENTATHOL Allergy (Uncoded 12/26/17 11:28) jaundice/hives JAUNDICE Home Medications Medication Instructions Recorded Cholecalciferol (Vitamin D3) 2,000 unit PO DAILY 10/30/16 [Vitamin D3] Albuterol Inhaler [Ventolin Hfa] 1 - 2 puff INHALATION Q2H PRN PRN 11/21/16 #1 inhaler Formoterol Fumarate [Perforomist] 20 mcg INHALATION BID 04/18/17 Budesonide [Pulmicort] 0.25 mg IH BID 09/08/17 fluticasone 50 mcg/actuation nasal 2 spray INTRANASAL DAILY #16 g 11/28/17 spray,suspension Methadone HCl 5 mg PO BID 12/06/17 Calcium Carb/Vitamin D [Os-Zach 1 tablet PO BIDCM 12/26/17 500MG + D] Apixaban [Eliquis] 2.5 mg GT BID tablet 01/02/18 Ceftriaxone [Rocephin] 1 gm IV Q24 bag 01/02/18 Clonazepam [Klonopin] 0.5 mg GT Q12H 2 Days #4 tab 01/02/18 Diltiazem [Cardizem] 60 mg GT Q6 tablet 01/02/18 Famotidine [Pepcid] 40 mg GT DAILY tablet 01/02/18 Guaifenesin [Robitussin] 10 ml GT Q4H PRN PRN udc 01/02/18 Levothyroxine [Synthroid] 88 mcg GT DAILY@0600 tablet 01/02/18 Lidocaine 2% Viscous [Xylocaine 5 ml PO Q4H PRN PRN udc 01/02/18 Viscous] Metoprolol Tartrate [Lopressor 25 mg GT BID tablet 01/02/18 (beta el)] Mirtazapine [Remeron] 15 mg GT QHS tablet 01/02/18 Vancomycin 1,250 mg IV Q12H vial 01/02/18 morphine solution (IR) [Roxanol 5 mg SL Q4H PRN 2 Days #6 01/02/18 (IR oral solution)] po.syringe Current Medications Generic Name Dose Route Start Last Admin Trade Name Freq PRN Reason Stop Dose Admin Albuterol Sulfate 1 - 2 puff 01/02/18 14:32 Ventolin Hfa (Sp) INHALATION Q2H PRN PRN SOB &/OR WHEEZING Albuterol Sulfate 2.5 mg 01/02/18 15:33 01/03/18 13:00 Ventolin Aerosols INHALATION Not Given Q6HWA.RT OBINNA Apixaban 2.5 mg 01/02/18 18:00 01/03/18 06:35 Eliquis GT 2.5 mg BID OBINNA Administration Budesonide 0.25 mg 01/02/18 15:45 01/03/18 06:50 Pulmicort Aerosol INHALATION 0.25 mg Q12H.RT OBINNA Administration Calcium/Vitamin D 1 tablet 01/02/18 17:00 01/03/18 08:25 Os-Zach 500mg + D PO 1 tablet BIDCM OBINNA Administration Cholecalciferol 2,000 unit 01/03/18 06:00 01/03/18 06:35 Vitamin D PO 2,000 unit DAILY OBINNA Administration Clonazepam 0.5 mg 01/02/18 21:00 01/03/18 08:25 Klonopin GT 0.5 mg Q12H OBINNA Administration Diltiazem HCl 60 mg 01/02/18 18:00 01/03/18 13:40 Cardizem GT 60 mg Q6 OBINNA Administration Famotidine 40 mg 01/03/18 06:00 01/03/18 06:35 Pepcid GT 40 mg DAILY OBINNA Administration Fluticasone Propionate 2 spray 01/03/18 06:00 01/03/18 06:35 Flonase Nasal [place] NASAL 2 spray DAILY OBINNA Administration Guaifenesin 10 ml 01/02/18 14:32 Robitussin GT Q4H PRN PRN CONGESTION Heparin Sodium (Beef Lung) 500 unit 01/02/18 21:19 Heparin 500 Unit/5 Ml (100/Ml) IV UD PRN HEPARIN FLUSH Enteral Nutritional Formula 1,000 mls @ 45 mls/hr 01/02/18 14:45 01/03/18 13:29 Jevity 1.5 GT 45 mls/hr .[id number] OBINNA Administration Ceftriaxone Sodium 1 gm in 50 mls @ 100 mls/hr 01/03/18 10:00 01/03/18 13:47 Rocephin IV 01/29/18 23:59 100 mls/hr Q24 OBINNA Administration Vancomycin HCl 1,250 mg/ 275 mls @ 183.333 mls/hr 01/02/18 21:00 01/03/18 09:29 Sodium Chloride IV 01/29/18 23:59 183.333 mls/hr Q12H OBINNA Administration Sodium Chloride 250 mls @ 15 mls/hr 01/02/18 21:19 IV .[id number] PRN SALINE FLUSH Levothyroxine Sodium 88 mcg 01/03/18 06:00 01/03/18 06:35 Synthroid GT 88 mcg DAILY@0600 OBINNA Administration Lidocaine HCl 5 ml 01/02/18 14:32 Xylocaine Viscous PO Q4H PRN PRN PAIN Metoprolol Tartrate 25 mg 01/02/18 18:00 01/03/18 06:35 Lopressor (Beta El) GT 25 mg BID OBINNA Administration Mirtazapine 15 mg 01/02/18 22:00 01/02/18 21:22 Remeron GT 15 mg QHS OBINNA Administration Morphine Sulfate 5 mg 01/02/18 14:32 01/03/18 14:20 Roxanol (Ir Oral Solution) SL 5 mg Q4H PRN Administration PAIN Polyethylene Glycol 17 gm 01/03/18 06:00 01/03/18 06:35 Miralax GT 17 gm DAILY OBINNA Administration Sodium Chloride 10 - 20 ml 01/02/18 21:19 01/03/18 09:29 IV 10 ml UD PRN Administration PICC FLUSH Tuberculin PPD 5 tu 01/10/18 10:00 Tubersol, Aplisol, Ppd ID 01/10/18 10:01 X1 ONE Problem List (Last Updated 12/14/17 @ 17:06 by Guillermina Vincent DO) Shortness of breath (Acute) Thrush (Acute) Vital Signs Temp Pulse Resp BP Pulse Ox 99.6 F H 82 18 117/59 L 97 01/03/18 16:00 01/03/18 16:00 01/03/18 16:00 01/03/18 16:00 01/03/18 16:00 Oxygen Flow Rate (L/min) 3 Oxygen Delivery Method Nasal Cannula Weight: 46.05 kg Body Mass Index (BMI) 16.3 Sodium 140 mmol/L (136-145) 01/03/18 05:35 Potassium 3.5 mmol/L (3.5-5.1) 01/03/18 05:35 Chloride 102 mmol/L (98-107) 01/03/18 05:35 Carbon Dioxide 34.0 mmol/L (21.0-32.0) H 01/03/18 05:35 Anion Gap 4 (5-15) L 01/03/18 05:35 BUN 12 mg/dL (7-18) 01/03/18 05:35 Creatinine 0.30 mg/dL (0.55-1.02) L 01/03/18 05:35 Est GFR (MDRD) Af Amer 280 mL/min (>60) 01/03/18 05:35 Est GFR (MDRD) Non-Af 231 mL/min (>60) 01/03/18 05:35 BUN/Creatinine Ratio 40.0 RATIO (10-20) H 01/03/18 05:35 Glucose 106 mg/dL (74-106) 01/03/18 05:35 Assessment/Plan: Psychotropic Medications: Unnecessary Medications: Bowel Regimen: - Provider Comments Provider responsibility: Provider responsible to enter orders to implement recommendations Provider Comments to Recommendations by Pharmacy: Agree
--- NOTE | 2018-01-03 14:07 | PHA.CONS_ITS ---
<Elver Phipps D - Last Filed: 01/03/18 13:58> Progress Note - Pharmacy Subjective: TCU Admission Objective: Allergies sulfamethoxazole [From Bactrim] Allergy (Verified 12/26/17 11:28) Hives PT STATES NOT ALLERGIC tetracycline Allergy (Verified 12/26/17 11:28) Hives trimethoprim [From Bactrim] Allergy (Verified 12/26/17 11:28) Hives verapamil Allergy (Verified 12/26/17 11:28) Unknown itraconazole Adverse Reaction (Verified 12/26/17 11:28) chest tightness w/ upper and loewr extremity weakness warfarin [From Coumadin] Adverse Reaction (Verified 12/26/17 11:28) gi bleed SODIUM PENTATHOL Allergy (Uncoded 12/26/17 11:28) jaundice/hives JAUNDICE Home Medications Medication Instructions Recorded Cholecalciferol (Vitamin D3) 2,000 unit PO DAILY 10/30/16 [Vitamin D3] Albuterol Inhaler [Ventolin Hfa] 1 - 2 puff INHALATION Q2H PRN PRN 11/21/16 #1 inhaler Formoterol Fumarate [Perforomist] 20 mcg INHALATION BID 04/18/17 Budesonide [Pulmicort] 0.25 mg IH BID 09/08/17 fluticasone 50 mcg/actuation nasal 2 spray INTRANASAL DAILY #16 g 11/28/17 spray,suspension Methadone HCl 5 mg PO BID 12/06/17 Calcium Carb/Vitamin D [Os-Zach 1 tablet PO BIDCM 12/26/17 500MG + D] Apixaban [Eliquis] 2.5 mg GT BID tablet 01/02/18 Ceftriaxone [Rocephin] 1 gm IV Q24 bag 01/02/18 Clonazepam [Klonopin] 0.5 mg GT Q12H 2 Days #4 tab 01/02/18 Diltiazem [Cardizem] 60 mg GT Q6 tablet 01/02/18 Famotidine [Pepcid] 40 mg GT DAILY tablet 01/02/18 Guaifenesin [Robitussin] 10 ml GT Q4H PRN PRN udc 01/02/18 Levothyroxine [Synthroid] 88 mcg GT DAILY@0600 tablet 01/02/18 Lidocaine 2% Viscous [Xylocaine 5 ml PO Q4H PRN PRN udc 01/02/18 Viscous] Metoprolol Tartrate [Lopressor 25 mg GT BID tablet 01/02/18 (beta el)] Mirtazapine [Remeron] 15 mg GT QHS tablet 01/02/18 Vancomycin 1,250 mg IV Q12H vial 01/02/18 morphine solution (IR) [Roxanol 5 mg SL Q4H PRN 2 Days #6 01/02/18 (IR oral solution)] po.syringe Current Medications Generic Name Dose Route Start Last Admin Trade Name Freq PRN Reason Stop Dose Admin Albuterol Sulfate 1 - 2 puff 01/02/18 14:32 Ventolin Hfa (Sp) INHALATION Q2H PRN PRN SOB &/OR WHEEZING Albuterol Sulfate 2.5 mg 01/02/18 15:33 01/03/18 06:50 Ventolin Aerosols INHALATION 2.5 mg Q6HWA.RT OBINNA Administration Apixaban 2.5 mg 01/02/18 18:00 01/03/18 06:35 Eliquis GT 2.5 mg BID OBINNA Administration Budesonide 0.25 mg 01/02/18 15:45 01/03/18 06:50 Pulmicort Aerosol INHALATION 0.25 mg Q12H.RT OBINNA Administration Calcium/Vitamin D 1 tablet 01/02/18 17:00 01/03/18 08:25 Os-Zach 500mg + D PO 1 tablet BIDCM OBINNA Administration Cholecalciferol 2,000 unit 01/03/18 06:00 01/03/18 06:35 Vitamin D PO 2,000 unit DAILY OBINNA Administration Clonazepam 0.5 mg 01/02/18 21:00 01/03/18 08:25 Klonopin GT 0.5 mg Q12H OBINNA Administration Diltiazem HCl 60 mg 01/02/18 18:00 01/03/18 13:40 Cardizem GT 60 mg Q6 OBINNA Administration Famotidine 40 mg 01/03/18 06:00 01/03/18 06:35 Pepcid GT 40 mg DAILY OBINNA Administration Fluticasone Propionate 2 spray 01/03/18 06:00 01/03/18 06:35 Flonase Nasal [place] NASAL 2 spray DAILY OBINNA Administration Guaifenesin 10 ml 01/02/18 14:32 Robitussin GT Q4H PRN PRN CONGESTION Heparin Sodium (Beef Lung) 500 unit 01/02/18 21:19 Heparin 500 Unit/5 Ml (100/Ml) IV UD PRN HEPARIN FLUSH Enteral Nutritional Formula 1,000 mls @ 45 mls/hr 01/02/18 14:45 01/03/18 13: 29 Jevity 1.5 GT 45 mls/hr .[id number] OBINNA Administration Ceftriaxone Sodium 1 gm in 50 mls @ 100 mls/hr 01/03/18 10:00 01/03/18 13:47 Rocephin IV 01/29/18 23:59 100 mls/hr Q24 OBINNA Administration Vancomycin HCl 1,250 mg/ 275 mls @ 183.333 mls/hr 01/02/18 21:00 01/03/18 09: 29 Sodium Chloride IV 01/29/18 23:59 183.333 mls/hr Q12H OBINNA Administration Sodium Chloride 250 mls @ 15 mls/hr 01/02/18 21:19 IV .[id number] PRN SALINE FLUSH Levothyroxine Sodium 88 mcg 01/03/18 06:00 01/03/18 06:35 Synthroid GT 88 mcg DAILY@0600 OBINNA Administration Lidocaine HCl 5 ml 01/02/18 14:32 Xylocaine Viscous PO Q4H PRN PRN PAIN Metoprolol Tartrate 25 mg 01/02/18 18:00 01/03/18 06:35 Lopressor (Beta El) GT 25 mg BID OBINNA Administration Mirtazapine 15 mg 01/02/18 22:00 01/02/18 21:22 Remeron GT 15 mg QHS OBINNA Administration Morphine Sulfate 5 mg 01/02/18 14:32 01/03/18 08:26 Roxanol (Ir Oral Solution) SL 5 mg Q4H PRN Administration PAIN Polyethylene Glycol 17 gm 01/03/18 06:00 01/03/18 06:35 Miralax GT 17 gm DAILY OBINNA Administration Sodium Chloride 10 - 20 ml 01/02/18 21:19 01/03/18 09:29 IV 10 ml UD PRN Administration PICC FLUSH Tuberculin PPD 5 tu 01/10/18 10:00 Tubersol, Aplisol, Ppd ID 01/10/18 10:01 X1 ONE Problem List (Last Updated 12/14/17 @ 17:06 by M Tiki Sementi, DO) Shortness of breath (Acute) Thrush (Acute) Vital Signs Temp Pulse Resp BP Pulse Ox 99.2 F H 79 16 122/56 H 95 01/02/18 15:54 01/03/18 06:50 01/03/18 06:50 01/03/18 06:27 01/03/18 06:50 Oxygen Flow Rate (L/min) 3 Oxygen Delivery Method Nasal Cannula Weight: 46.05 kg Body Mass Index (BMI) 16.3 Sodium 140 mmol/L (136-145) 01/03/18 05:35 Potassium 3.5 mmol/L (3.5-5.1) 01/03/18 05:35 Chloride 102 mmol/L (98-107) 01/03/18 05:35 Carbon Dioxide 34.0 mmol/L (21.0-32.0) H 01/03/18 05:35 Anion Gap 4 (5-15) L 01/03/18 05:35 BUN 12 mg/dL (7-18) 01/03/18 05:35 Creatinine 0.30 mg/dL (0.55-1.02) L 01/03/18 05:35 Est GFR (MDRD) Af Amer 280 mL/min (>60) 01/03/18 05:35 Est GFR (MDRD) Non-Af 231 mL/min (>60) 01/03/18 05:35 BUN/Creatinine Ratio 40.0 RATIO (10-20) H 01/03/18 05:35 Glucose 106 mg/dL (74-106) 01/03/18 05:35 Assessment/Plan: 1) Pain Morphine as needed, lidocaine orally (topical) as needed. Continue to monitor daily pain scores, prn medication use. 2) ID Vancomycin every 12 hours until 01/29/18, ceftriaxone daily until 01/29. Pharmacy monitoring and adjusting dose as needed, ID following. No WBC count elevation, afebrile. Continue to monitor s/s infection. 3) AFib Diltiazem, apixaban, metoprolol. Avg HR within goal range, BP within goal range, Hgb/Hct stable. Continue to monitor BP/HR, s/s bleeding. 4) Pulm Guaifenesin as needed, fluticasone spray daily, albuterol aerosols scheduled , albuterol inhaler as needed, budesonide aerosols twice daily. Continue to monitor prn medication use, for shortness of breath. 5) Hypothyroidism Levothyroxine daily. Continue to monitor s/s hyper/hypothyroidism. 6) Nutrition Continuous Jevity tube feeding, Ca/D. Continue to monitor clinically. 7) GI Famotidine daily. Continue to monitor s/s GI distress. Psychotropic Medications: 8) Depression/Anxiety Mirtazapine at HS, clonazepam twice daily. Continue to monitor s/s depression /anxiety. Unnecessary Medications: None Bowel Regimen: 9) PEG daily. Continue to monitor for constipation/diarrhea. Date of Note:: 01/03/18 - Provider Comments Provider responsibility: Provider responsible to enter orders to implement recommendations <Corbin Valverde Chi - Last Filed: 01/03/18 17:42> Progress Note - Pharmacy Subjective: [] Objective: Allergies sulfamethoxazole [From Bactrim] Allergy (Verified 12/26/17 11:28) Hives PT STATES NOT ALLERGIC tetracycline Allergy (Verified 12/26/17 11:28) Hives trimethoprim [From Bactrim] Allergy (Verified 12/26/17 11:28) Hives verapamil Allergy (Verified 12/26/17 11:28) Unknown itraconazole Adverse Reaction (Verified 12/26/17 11:28) chest tightness w/ upper and loewr extremity weakness warfarin [From Coumadin] Adverse Reaction (Verified 12/26/17 11:28) gi bleed SODIUM P[place]ATH[place] Allergy (Uncoded 12/26/17 11:28) jaundice/hives JAUNDICE Home Medications Medication Instructions Recorded Cholecalciferol (Vitamin D3) 2,000 unit PO DAILY 10/30/16 [Vitamin D3] Albuterol Inhaler [Ventolin Hfa] 1 - 2 puff INHALATION Q2H PRN PRN 11/21/16 #1 inhaler Formoterol Fumarate [Perforomist] 20 mcg INHALATION BID 04/18/17 Budesonide [Pulmicort] 0.25 mg IH BID 09/08/17 fluticasone 50 mcg/actuation nasal 2 spray INTRANASAL DAILY #16 g 11/28/17 spray,suspension Methadone HCl 5 mg PO BID 12/06/17 Calcium Carb/Vitamin D [Os-Zach 1 tablet PO BIDCM 12/26/17 500MG + D] Apixaban [Eliquis] 2.5 mg GT BID tablet 01/02/18 Ceftriaxone [Rocephin] 1 gm IV Q24 bag 01/02/18 Clonazepam [Klonopin] 0.5 mg GT Q12H 2 Days #4 tab 01/02/18 Diltiazem [Cardizem] 60 mg GT Q6 tablet 01/02/18 Famotidine [Pepcid] 40 mg GT DAILY tablet 01/02/18 Guaifenesin [Robitussin] 10 ml GT Q4H PRN PRN udc 01/02/18 Levothyroxine [Synthroid] 88 mcg GT DAILY@0600 tablet 01/02/18 Lidocaine 2% Viscous [Xylocaine 5 ml PO Q4H PRN PRN udc 01/02/18 Viscous] Metoprolol Tartrate [Lopressor 25 mg GT BID tablet 01/02/18 (beta el)] Mirtazapine [Remeron] 15 mg GT QHS tablet 01/02/18 Vancomycin 1,250 mg IV Q12H vial 01/02/18 morphine solution (IR) [Roxanol 5 mg SL Q4H PRN 2 Days #6 01/02/18 (IR oral solution)] po.syringe Current Medications Generic Name Dose Route Start Last Admin Trade Name Freq PRN Reason Stop Dose Admin Albuterol Sulfate 1 - 2 puff 01/02/18 14:32 Ventolin Hfa (Sp) INHALATION Q2H PRN PRN SOB &/OR WHEEZING Albuterol Sulfate 2.5 mg 01/02/18 15:33 01/03/18 13:00 Ventolin Aerosols INHALATION Not Given Q6HWA.RT OBINNA Apixaban 2.5 mg 01/02/18 18:00 01/03/18 06:35 Eliquis GT 2.5 mg BID OBINNA Administration Budesonide 0.25 mg 01/02/18 15:45 01/03/18 06:50 Pulmicort Aerosol INHALATION 0.25 mg Q12H.RT OBINNA Administration Calcium/Vitamin D 1 tablet 01/02/18 17:00 01/03/18 08:25 Os-Zach 500mg + D PO 1 tablet BIDCM OBINNA Administration Cholecalciferol 2,000 unit 01/03/18 06:00 01/03/18 06:35 Vitamin D PO 2,000 unit DAILY OBINNA Administration Clonazepam 0.5 mg 01/02/18 21:00 01/03/18 08:25 Klonopin GT 0.5 mg Q12H OBINNA Administration Diltiazem HCl 60 mg 01/02/18 18:00 01/03/18 13:40 Cardizem GT 60 mg Q6 OBINNA Administration Famotidine 40 mg 01/03/18 06:00 01/03/18 06:35 Pepcid GT 40 mg DAILY OBINNA Administration Fluticasone Propionate 2 spray 01/03/18 06:00 01/03/18 06:35 Flonase Nasal [place] NASAL 2 spray DAILY OBINNA Administration Guaifenesin 10 ml 01/02/18 14:32 Robitussin GT Q4H PRN PRN CONGESTION Heparin Sodium (Beef Lung) 500 unit 01/02/18 21:19 Heparin 500 Unit/5 Ml (100/Ml) IV UD PRN HEPARIN FLUSH Enteral Nutritional Formula 1,000 mls @ 45 mls/hr 01/02/18 14:45 01/03/18 13: 29 Jevity 1.5 GT 45 mls/hr .[id number] OBINNA Administration Ceftriaxone Sodium 1 gm in 50 mls @ 100 mls/hr 01/03/18 10:00 01/03/18 13:47 Rocephin IV 01/29/18 23:59 100 mls/hr Q24 OBINNA Administration Vancomycin HCl 1,250 mg/ 275 mls @ 183.333 mls/hr 01/02/18 21:00 01/03/18 09: 29 Sodium Chloride IV 01/29/18 23:59 183.333 mls/hr Q12H OBINNA Administration Sodium Chloride 250 mls @ 15 mls/hr 01/02/18 21:19 IV .[id number] PRN SALINE FLUSH Levothyroxine Sodium 88 mcg 01/03/18 06:00 01/03/18 06:35 Synthroid GT 88 mcg DAILY@0600 OBINNA Administration Lidocaine HCl 5 ml 01/02/18 14:32 Xylocaine Viscous PO Q4H PRN PRN PAIN Metoprolol Tartrate 25 mg 01/02/18 18:00 01/03/18 06:35 Lopressor (Beta El) GT 25 mg BID OBINNA Administration Mirtazapine 15 mg 01/02/18 22:00 01/02/18 21:22 Remeron GT 15 mg QHS OBINNA Administration Morphine Sulfate 5 mg 01/02/18 14:32 01/03/18 14:20 Roxanol (Ir Oral Solution) SL 5 mg Q4H PRN Administration PAIN Polyethylene Glycol 17 gm 01/03/18 06:00 01/03/18 06:35 Miralax GT 17 gm DAILY OBINNA Administration Sodium Chloride 10 - 20 ml 01/02/18 21:19 01/03/18 09:29 IV 10 ml UD PRN Administration PICC FLUSH Tuberculin PPD 5 tu 01/10/18 10:00 Tubersol, Aplisol, Ppd ID 01/10/18 10:01 X1 ONE Problem List (Last Updated 12/14/17 @ 17:06 by Guillermina Vincent DO) Shortness of breath (Acute) Thrush (Acute) Vital Signs Temp Pulse Resp BP Pulse Ox 99.6 F H 82 18 117/59 L 97 01/03/18 16:00 01/03/18 16:00 01/03/18 16:00 01/03/18 16:00 01/03/18 16:00 Oxygen Flow Rate (L/min) 3 Oxygen Delivery Method Nasal Cannula Weight: 46.05 kg Body Mass Index (BMI) 16.3 Sodium 140 mmol/L (136-145) 01/03/18 05:35 Potassium 3.5 mmol/L (3.5-5.1) 01/03/18 05:35 Chloride 102 mmol/L (98-107) 01/03/18 05:35 Carbon Dioxide 34.0 mmol/L (21.0-32.0) H 01/03/18 05:35 Anion Gap 4 (5-15) L 01/03/18 05:35 BUN 12 mg/dL (7-18) 01/03/18 05:35 Creatinine 0.30 mg/dL (0.55-1.02) L 01/03/18 05:35 Est GFR (MDRD) Af Amer 280 mL/min (>60) 01/03/18 05:35 Est GFR (MDRD) Non-Af 231 mL/min (>60) 01/03/18 05:35 BUN/Creatinine Ratio 40.0 RATIO (10-20) H 01/03/18 05:35 Glucose 106 mg/dL (74-106) 01/03/18 05:35 Assessment/Plan: Psychotropic Medications: Unnecessary Medications: Bowel Regimen: - Provider Comments Provider responsibility: Provider responsible to enter orders to implement recommendations Provider Comments to Recommendations by Pharmacy: Agree
[2018-01-03 16:00] VITALS: BP 117/59; PULSE 82; RESP 18; TEMP 37.6; O2SAT 97
--- NOTE | 2018-01-03 16:09 | CHAPLAIN ---
Type of Pastoral Visit ___ Initial Visit _x__ Follow-up Visit ___ On-call Visit ___ General Patient Visit ___ Spiritual Assessment ___ Family Conference ___ Bereavement ___ Rapid Response ___ Code Blue ___ Other (describe below) Pastoral Care Referral From _x__ Patient ___ Family ___ Nurse ___ Physician ___ Tar Heater Operator ___ Machine Sweeper Brush Maker ___ Other (describe below) Sacrament/Intervention _x__ Active listening ___ Anointing ___ Anabaptist ___ Bereavement ___ Communion ___ [place] exploration ___ ___ Life review ___ Prayer ___ Reconciliation ___ Sacrament of Sick _x__ Supportive presence ___ Wedding ___ Other (describe below) Pastoral Comments
[2018-01-03 17:52] VITALS: BP 117/59; PULSE 82
[2018-01-03] MEDS: Mirtazapine 15 MG Tablet GT (20:59)
[2018-01-03] MEDS: Menthol/Lanolin/Calamine/Znox 113 GM Tube 1 APPLIC TOPICAL (21:00)
[2018-01-03] MEDS: Alteplase 2 MG/2 ML Vial IV ×2 (21:13→22:29)
[2018-01-04] VITALS (8 sets, daily range): BP systolic 105–121; BP diastolic 45–65; PULSE 71–98; RESP 18–21; TEMP 36.1; O2SAT 96–100
--- NOTE | 2018-01-04 00:01 | NURSING ---
Pt remains in droplet precautions during shift d/t MRSA and Klebsiella in sputum
[2018-01-04] MEDS: Famotidine 20 MG Tablet 40 MG GT (04:50)
[2018-01-04] MEDS: dilTIAZem 60 MG Tablet GT ×3 (04:50→17:38)
[2018-01-04] MEDS: Polyethylene Glycol 3350 17 GM PACKET GT (04:50)
[2018-01-04] MEDS: APIXABAN 2.5 MG TABLET GT ×2 (04:51→17:38)
[2018-01-04] MEDS: Levothyroxine 88 MCG Tablet GT (04:51)
[2018-01-04] MEDS: Menthol/Lanolin/Calamine/Znox 113 GM Tube 1 APPLIC TOPICAL ×2 (04:51→21:59)
[2018-01-04] MEDS: 0.9% NaCl PICC Flush IV ×3 (04:55→22:08)
[2018-01-04] MEDS: Metoprolol Tartrate 25 MG Tablet GT ×2 (04:56→17:38)
[2018-01-04] MEDS: Fluticasone 0.05% 1 SPRAY NASAL.SRY 2 SPRAY NASAL (05:09)
[2018-01-04] MEDS: morphine (oral solution) 10MG/0.5ML Syringe 5 MG SL (05:19)
[2018-01-04] MEDS: Budesonide Respules 0.5 MG/2 ML AMPUL.NEB. 0.25 MG INHALATION ×2 (07:35→19:16)
[2018-01-04] MEDS: Albuterol 2.5 MG/3 ML VIAL.NEB. INHALATION ×3 (07:35→19:16)
[2018-01-04] MEDS: clonazePAM 0.5 MG Tablet GT ×2 (08:16→22:07)
[2018-01-04] MEDS: Calcium Carb/Vitamin D 1 TABLET Tablet PO ×2 (08:16→17:38)
[2018-01-04 10:10] LABS: HIV - WCH Non-Reactive (Nonreactive)
[2018-01-04] MEDS: Ceftriaxone 1 GM/50 ML BAG IV (10:19)
[2018-01-04] MEDS: Jevity 1.5 1,000 ML 45 ML GT (12:12)
--- NOTE | 2018-01-04 12:40 | NURSING ---
all care provided in pt room d/t isolation
[2018-01-04] MEDS: Mirtazapine 15 MG Tablet GT (21:58)
[2018-01-05] MEDS: dilTIAZem 60 MG Tablet GT ×4 (00:47→18:50)
--- NOTE | 2018-01-05 00:50 | NURSING ---
Pt remains in isolation precautions this shift. All care provided in room.
[2018-01-05] MEDS: APIXABAN 2.5 MG TABLET GT ×2 (06:15→18:50)
[2018-01-05] MEDS: Levothyroxine 88 MCG Tablet GT (06:15)
[2018-01-05] MEDS: Famotidine 20 MG Tablet 40 MG GT (06:15)
[2018-01-05] MEDS: Polyethylene Glycol 3350 17 GM PACKET GT (06:15)
[2018-01-05] MEDS: Menthol/Lanolin/Calamine/Znox 113 GM Tube 1 APPLIC TOPICAL ×2 (06:16→21:16)
[2018-01-05] MEDS: Fluticasone 0.05% 1 SPRAY NASAL.SRY 2 SPRAY NASAL (06:16)
[2018-01-05 06:24] VITALS: BP 119/53; PULSE 109
[2018-01-05] MEDS: Metoprolol Tartrate 25 MG Tablet GT ×2 (06:24→18:50)
[2018-01-05 07:15] VITALS: PULSE 82; RESP 18; O2SAT 100
[2018-01-05] MEDS: Budesonide Respules 0.5 MG/2 ML AMPUL.NEB. 0.25 MG INHALATION ×2 (07:15→19:50)
[2018-01-05] MEDS: Albuterol 2.5 MG/3 ML VIAL.NEB. INHALATION ×3 (07:15→19:50)
--- NOTE | 2018-01-05 07:22 | NURSING ---
Pt remains in droplet precautions during shift d/t MRSA and Klebsiella in sputum
--- NOTE | 2018-01-05 07:23 | NURSING ---
Pt remains in droplet precautions during shift d/t MRSA and Klebsiella in sputum
[2018-01-05] MEDS: clonazePAM 0.5 MG Tablet GT ×2 (08:31→21:26)
[2018-01-05] MEDS: Calcium Carb/Vitamin D 1 TABLET Tablet PO ×2 (08:31→18:50)
[2018-01-05] MEDS: 0.9% NaCl PICC Flush IV ×2 (08:32→21:19)
[2018-01-05] MEDS: Ceftriaxone 1 GM/50 ML BAG IV (10:11)
[2018-01-05] MEDS: Jevity 1.5 1,000 ML 45 ML GT (12:01)
[2018-01-05 13:32] VITALS: PULSE 76; RESP 18
[2018-01-05 15:52] VITALS: BP 121/78; PULSE 100; RESP 18; TEMP 37.1; O2SAT 100
[2018-01-05] MEDS: morphine (oral solution) 10MG/0.5ML Syringe 5 MG SL ×2 (17:30→21:24)
[2018-01-05 18:50] VITALS: BP 121/78; PULSE 100
[2018-01-05 19:50] VITALS: PULSE 78; RESP 16
[2018-01-05] MEDS: Mirtazapine 15 MG Tablet GT (21:24)
--- NOTE | 2018-01-05 22:03 | NURSING ---
Pt remains in droplet precautions during shift d/t MRSA and Klebsiella in sputum
[2018-01-06] MEDS: dilTIAZem 60 MG Tablet GT ×5 (00:24→23:13)
[2018-01-06] MEDS: morphine (oral solution) 10MG/0.5ML Syringe 5 MG SL ×4 (03:25→21:09)
[2018-01-06] MEDS: Menthol/Lanolin/Calamine/Znox 113 GM Tube 1 APPLIC TOPICAL ×2 (06:43→21:11)
[2018-01-06] MEDS: Polyethylene Glycol 3350 17 GM PACKET GT (06:44)
[2018-01-06] MEDS: APIXABAN 2.5 MG TABLET GT ×2 (06:44→18:46)
[2018-01-06] MEDS: Fluticasone 0.05% 1 SPRAY NASAL.SRY 2 SPRAY NASAL (06:45)
[2018-01-06] MEDS: Famotidine 20 MG Tablet 40 MG GT (06:47)
[2018-01-06] MEDS: Levothyroxine 88 MCG Tablet GT (06:47)
[2018-01-06 06:56] VITALS: BP 130/72; PULSE 122
[2018-01-06] MEDS: Metoprolol Tartrate 25 MG Tablet GT ×2 (06:56→18:46)
[2018-01-06 07:02] VITALS: PULSE 72; RESP 20; O2SAT 98
[2018-01-06] MEDS: Albuterol 2.5 MG/3 ML VIAL.NEB. INHALATION ×2 (07:02→19:40)
[2018-01-06] MEDS: Budesonide Respules 0.5 MG/2 ML AMPUL.NEB. 0.25 MG INHALATION ×2 (07:02→19:41)
[2018-01-06] MEDS: clonazePAM 0.5 MG Tablet GT ×2 (08:27→21:10)
[2018-01-06] MEDS: Jevity 1.5 1,000 ML 45 ML GT (08:28)
[2018-01-06] MEDS: Calcium Carb/Vitamin D 1 TABLET Tablet PO ×2 (08:28→18:46)
--- NOTE | 2018-01-06 08:29 | MDS.RN ---
Pain interview for KAMILAH 01/09/18 completed.
[2018-01-06] MEDS: Ceftriaxone 1 GM/50 ML BAG IV (11:54)
[2018-01-06 13:20] VITALS: PULSE 76; RESP 22
--- NOTE | 2018-01-06 13:37 | CASEMGMT ---
Brief interview for mental status (BIMS) and resident mood interview (PHQ-9) completed on this day. BIMS score 1515. PHQ-9 score 12/06
[2018-01-06 15:55] VITALS: BP 128/69; PULSE 86; RESP 18; TEMP 36.6; O2SAT 97
[2018-01-06 18:46] VITALS: PULSE 86
[2018-01-06 19:41] VITALS: PULSE 78; RESP 18
[2018-01-06] MEDS: Mirtazapine 15 MG Tablet GT (21:11)
[2018-01-06] MEDS: 0.9% NaCl PICC Flush IV (21:16)
[2018-01-07 00:11] LABS: Bedside Glucose 126 mg/dL (70-110)
--- NOTE | 2018-01-07 01:26 | NURSING ---
Pt unable to sleep requesting more melatonin. Dr Valverde aware order entered.
[2018-01-07] MEDS: dilTIAZem 60 MG Tablet GT ×4 (04:44→23:07)
[2018-01-07] MEDS: morphine (oral solution) 10MG/0.5ML Syringe 5 MG SL ×4 (04:44→23:12)
[2018-01-07] MEDS: Famotidine 20 MG Tablet 40 MG GT (04:44)
[2018-01-07] MEDS: APIXABAN 2.5 MG TABLET GT ×2 (04:44→17:48)
[2018-01-07] MEDS: Levothyroxine 88 MCG Tablet GT (04:44)
[2018-01-07] MEDS: Menthol/Lanolin/Calamine/Znox 113 GM Tube 1 APPLIC TOPICAL ×2 (04:45→21:20)
[2018-01-07] MEDS: Polyethylene Glycol 3350 17 GM PACKET GT (04:45)
[2018-01-07 04:55] VITALS: BP 150/85; PULSE 107
[2018-01-07] MEDS: Metoprolol Tartrate 25 MG Tablet GT ×2 (04:55→17:48)
[2018-01-07] MEDS: Fluticasone 0.05% 1 SPRAY NASAL.SRY 2 SPRAY NASAL (04:55)
--- NOTE | 2018-01-07 05:15 | NURSING ---
Residuals checked at 2129 and 2114 via auscultation and aspiration. Residuals zero. Will continue to monitor and asses.
[2018-01-07 06:50] VITALS: PULSE 88; RESP 16; O2SAT 94
[2018-01-07 06:50] LABS: Bedside Glucose 122 mg/dL (70-110)
[2018-01-07] MEDS: Budesonide Respules 0.5 MG/2 ML AMPUL.NEB. 0.25 MG INHALATION ×2 (06:50→18:49)
[2018-01-07] MEDS: Albuterol 2.5 MG/3 ML VIAL.NEB. INHALATION ×2 (06:50→18:48)
[2018-01-07] MEDS: Calcium Carb/Vitamin D 1 TABLET Tablet PO ×2 (09:55→17:47)
[2018-01-07] MEDS: 0.9% NaCl IVPB Med Flush (250 mL) 15 ML IV (09:58)
[2018-01-07] MEDS: 0.9% NaCl PICC Flush IV ×3 (09:58→21:05)
[2018-01-07] MEDS: clonazePAM 0.5 MG Tablet GT ×2 (09:59→21:03)
[2018-01-07 11:05] LABS: Bedside Glucose 131 mg/dL (70-110)
[2018-01-07] MEDS: Ceftriaxone 1 GM/50 ML BAG IV (11:53)
[2018-01-07] MEDS: Jevity 1.5 1,000 ML 45 ML GT (11:55)
[2018-01-07 12:40] VITALS: PULSE 76; RESP 18
[2018-01-07 15:41] VITALS: BP 125/74; PULSE 96; RESP 20; TEMP 36.4; O2SAT 100
--- NOTE | 2018-01-07 16:34 | NURSING ---
All nursing treatments and therapy performed in room d/t isolation precautions.
[2018-01-07 16:50] LABS: Bedside Glucose 114 mg/dL (70-110)
[2018-01-07 17:48] VITALS: BP 125/74; PULSE 96
[2018-01-07 18:50] VITALS: PULSE 92; RESP 18; O2SAT 100
[2018-01-07] MEDS: Mirtazapine 15 MG Tablet GT (21:00)
[2018-01-08] VITALS (7 sets, daily range): BP systolic 120–124; BP diastolic 66–72; PULSE 85–112; RESP 16–20; TEMP 36.6; O2SAT 97–98
[2018-01-08 00:11] LABS: Bedside Glucose 124 mg/dL (70-110)
[2018-01-08] MEDS: dilTIAZem 60 MG Tablet GT ×4 (05:24→23:17)
[2018-01-08] MEDS: Metoprolol Tartrate 25 MG Tablet GT ×2 (05:25→18:36)
[2018-01-08] MEDS: Levothyroxine 88 MCG Tablet GT (05:25)
[2018-01-08] MEDS: Famotidine 20 MG Tablet 40 MG GT (05:25)
[2018-01-08] MEDS: Polyethylene Glycol 3350 17 GM PACKET GT (05:26)
[2018-01-08] MEDS: APIXABAN 2.5 MG TABLET GT ×2 (05:26→18:36)
[2018-01-08] MEDS: Fluticasone 0.05% 1 SPRAY NASAL.SRY 2 SPRAY NASAL (05:50)
[2018-01-08] MEDS: Menthol/Lanolin/Calamine/Znox 113 GM Tube 1 APPLIC TOPICAL ×2 (05:55→22:01)
[2018-01-08] MEDS: Budesonide Respules 0.5 MG/2 ML AMPUL.NEB. 0.25 MG INHALATION ×2 (06:40→20:40)
[2018-01-08] MEDS: Albuterol 2.5 MG/3 ML VIAL.NEB. INHALATION ×3 (06:41→20:40)
[2018-01-08] MEDS: morphine (oral solution) 10MG/0.5ML Syringe 5 MG SL ×2 (06:54→15:12)
[2018-01-08 06:56] LABS: Bedside Glucose 123 mg/dL (70-110)
[2018-01-08] MEDS: Calcium Carb/Vitamin D 1 TABLET Tablet PO ×2 (08:50→18:36)
[2018-01-08] MEDS: clonazePAM 0.5 MG Tablet GT ×2 (08:52→21:44)
[2018-01-08] MEDS: 0.9% NaCl PICC Flush IV ×3 (09:03→22:01)
[2018-01-08] MEDS: Jevity 1.5 1,000 ML 45 ML GT ×2 (11:32→11:33)
[2018-01-08] MEDS: Ceftriaxone 1 GM/50 ML BAG IV (11:32)
[2018-01-08 11:40] LABS: Bedside Glucose 120 mg/dL (70-110)
[2018-01-08] MEDS: 0.9% NaCl IVPB Med Flush (250 mL) 15 ML IV (11:50)
[2018-01-08 16:36] LABS: Bedside Glucose 120 mg/dL (70-110)
[2018-01-08] MEDS: Mirtazapine 15 MG Tablet GT (21:44)
--- NOTE | 2018-01-08 22:07 | NURSING ---
Patient c/o of nausea. Dr. Valverde notified orders given for zofran 4mg q6h prn for nausea.
[2018-01-08] MEDS: Ondansetron ODT 4 MG Tablet GT (23:17)
[2018-01-09] LABS: Bedside Glucose 107 mg/dL (70-110)
[2018-01-09] MEDS: Polyethylene Glycol 3350 17 GM PACKET GT (05:47)
[2018-01-09] MEDS: APIXABAN 2.5 MG TABLET GT ×2 (05:47→17:57)
[2018-01-09] MEDS: dilTIAZem 60 MG Tablet GT ×4 (05:47→22:59)
[2018-01-09] MEDS: Levothyroxine 88 MCG Tablet GT (05:47)
[2018-01-09] MEDS: Famotidine 20 MG Tablet 40 MG GT (05:47)
[2018-01-09 05:48] VITALS: BP 137/68; PULSE 115
[2018-01-09] MEDS: Metoprolol Tartrate 25 MG Tablet GT ×2 (05:48→17:57)
[2018-01-09] MEDS: Fluticasone 0.05% 1 SPRAY NASAL.SRY 2 SPRAY NASAL (06:01)
[2018-01-09] MEDS: Menthol/Lanolin/Calamine/Znox 113 GM Tube 1 APPLIC TOPICAL ×2 (06:03→22:59)
[2018-01-09 06:56] LABS: Bedside Glucose 105 mg/dL (70-110)
[2018-01-09 07:11] VITALS: PULSE 80; RESP 16; O2SAT 98
[2018-01-09] MEDS: Albuterol 2.5 MG/3 ML VIAL.NEB. INHALATION ×3 (07:11→19:10)
[2018-01-09] MEDS: Budesonide Respules 0.5 MG/2 ML AMPUL.NEB. 0.25 MG INHALATION ×2 (07:11→19:10)
[2018-01-09] MEDS: 0.9% NaCl PICC Flush IV (09:02)
[2018-01-09] MEDS: 0.9% NaCl IVPB Med Flush (250 mL) 15 ML IV (09:02)
[2018-01-09] MEDS: clonazePAM 0.5 MG Tablet GT ×2 (09:02→20:42)
[2018-01-09] MEDS: Calcium Carb/Vitamin D 1 TABLET Tablet PO ×2 (09:03→17:57)
[2018-01-09 09:06] LABS: Vancomycin, Trough Level 24.2 ug/mL (5.0-15.0)
--- NOTE | 2018-01-09 09:59 | PHA.PHARE_ITS ---
<Pat Collazo M - Last Filed: 01/09/18 09:55> Consult Pharmacy has been consulted to manage selected antiobiotic: Vancomycin Type of Consult: Follow-up Suspected Infection: Other Prior Doses of Antibiotics Received/Current Regimen: VANCOMYCIN 1250MG IV Q12HRS: 01/08 @2144, 01/09 @0902 Labs: Sodium 140 mmol/L (136-145) 01/03/18 05:35 Potassium 3.5 mmol/L (3.5-5.1) 01/03/18 05:35 Chloride 102 mmol/L (98-107) 01/03/18 05:35 Carbon Dioxide 34.0 mmol/L (21.0-32.0) H 01/03/18 05:35 Anion Gap 4 (5-15) L 01/03/18 05:35 BUN 12 mg/dL (7-18) 01/03/18 05:35 Creatinine 0.30 mg/dL (0.55-1.02) L 01/03/18 05:35 Est GFR (MDRD) Af Amer 280 mL/min (>60) 01/03/18 05:35 Est GFR (MDRD) Non-Af 231 mL/min (>60) 01/03/18 05:35 BUN/Creatinine Ratio 40.0 RATIO (10-20) H 01/03/18 05:35 Glucose 106 mg/dL (74-106) 01/03/18 05:35 Vancomycin Trough 24.2 ug/mL (5.0-15.0) H 01/09/18 08:15 Weight used for dosin.6 kg Goal Trough: 10-15 mcg/mL Pharmacy Plan for Drug Dosing: Pharmacy to manage vancomycin per consult. The patient had a level drawn which resulted in a value of 24.2 (10.5hr level). This was drawn appropriately. Due to the high trough level, a random level was ordered for tomorrow morning, and the vancomycin will be held for the remainder of today, as the patient already got her 0900 dose. Pharmacy will re-evaluate vancomycin dosing once the level results. A BMP is also ordered for tomorrow morning PLAN/RECOMMENDATIONS 1. HOLD vancomycin 1250mg IV Q12hrs 2. Random vancomycin trough 01/10/18 @0600 with AM labs 3. BMP 01/10/18 @0600 4. Pharmacy will continue to monitor and adjust dosing scheme once trough re- evaluated <Corbin Valverde Chi - Last Filed: 01/09/18 17:58> Consult Labs: Sodium 140 mmol/L (136-145) 01/03/18 05:35 Potassium 3.5 mmol/L (3.5-5.1) 01/03/18 05:35 Chloride 102 mmol/L (98-107) 01/03/18 05:35 Carbon Dioxide 34.0 mmol/L (21.0-32.0) H 01/03/18 05:35 Anion Gap 4 (5-15) L 01/03/18 05:35 BUN 12 mg/dL (7-18) 01/03/18 05:35 Creatinine 0.30 mg/dL (0.55-1.02) L 01/03/18 05:35 Est GFR (MDRD) Af Amer 280 mL/min (>60) 01/03/18 05:35 Est GFR (MDRD) Non-Af 231 mL/min (>60) 01/03/18 05:35 BUN/Creatinine Ratio 40.0 RATIO (10-20) H 01/03/18 05:35 Glucose 106 mg/dL (74-106) 01/03/18 05:35 Vancomycin Trough 24.2 ug/mL (5.0-15.0) H 01/09/18 08:15 Pharmacy Plan for Drug Dosing: Pharmacy Service will continue to monitor and adjust dosing as required.
--- NOTE | 2018-01-09 10:29 | NURSING ---
pt remains in isolation, all therapy/treatments done in room
[2018-01-09] MEDS: Ceftriaxone 1 GM/50 ML BAG IV (10:47)
[2018-01-09] MEDS: morphine (oral solution) 10MG/0.5ML Syringe 5 MG SL ×2 (10:47→20:45)
[2018-01-09 11:35] LABS: Bedside Glucose 154 mg/dL (70-110)
[2018-01-09 15:45] VITALS: BP 103/72; PULSE 117; RESP 20; TEMP 36.7; O2SAT 100
[2018-01-09 17:00] LABS: Bedside Glucose 95 mg/dL (70-110)
[2018-01-09] MEDS: Jevity 1.5 1,000 ML 45 ML GT (17:56)
[2018-01-09 17:57] VITALS: PULSE 117
--- NOTE | 2018-01-09 18:15 | NURSING ---
no residuals today via PEG. Pt resting in bed, eyes closed. denies needs. call light inr each.
[2018-01-09 19:10] VITALS: PULSE 84; RESP 16
[2018-01-09] MEDS: Mirtazapine 15 MG Tablet GT (22:59)
[2018-01-10] VITALS (7 sets, daily range): BP systolic 113–121; BP diastolic 61–70; PULSE 80–109; RESP 16–20; TEMP 36.8; O2SAT 94–100
[2018-01-10 00:11] LABS: Bedside Glucose 105 mg/dL (70-110)
--- NOTE | 2018-01-10 02:29 | NURSING ---
Pt remains in droplet precautions during shift d/t MRSA and Klebsiella in sputum
[2018-01-10] MEDS: 0.9% NaCl PICC Flush IV ×5 (04:08→20:33)
[2018-01-10] MEDS: Levothyroxine 88 MCG Tablet GT (04:25)
[2018-01-10] MEDS: Famotidine 20 MG Tablet 40 MG GT (04:25)
[2018-01-10] MEDS: Polyethylene Glycol 3350 17 GM PACKET GT (04:25)
[2018-01-10] MEDS: APIXABAN 2.5 MG TABLET GT ×2 (04:25→18:03)
[2018-01-10] MEDS: Menthol/Lanolin/Calamine/Znox 113 GM Tube 1 APPLIC TOPICAL ×2 (04:25→20:31)
[2018-01-10] MEDS: dilTIAZem 60 MG Tablet GT ×3 (04:25→18:03)
[2018-01-10] MEDS: morphine (oral solution) 10MG/0.5ML Syringe 5 MG SL ×3 (04:30→20:31)
[2018-01-10] MEDS: Fluticasone 0.05% 1 SPRAY NASAL.SRY 2 SPRAY NASAL (04:37)
[2018-01-10] MEDS: Metoprolol Tartrate 25 MG Tablet GT ×2 (04:39→18:04)
[2018-01-10 06:16] LABS: Absolute Lymphocyte Count 0.98 X10^3/ul (0.83-4.51); Absolute Neutrophil Count 4.1 X10^3/uL (2.0-7.7); Basophil# 0.01 X10^3/uL; Basophil% 0.2 % (0-1); Eosinophil# 0.26 X10^3/uL; Eosinophils% 4.5 % (0-5); Hemoglobin 11.2 g/dl (12.0-15.0); Lymphocyte # 0.98 X10^3/ul (4.0); Lymphocyte % 16.8 % (19-41); Mean Corp Hgb Conc 30.3 g/gl (32-36); Mean Platelet Vol. 11.1 fl (6.2-12.0); Monocyte% 8.6 % (0-10); Neutrophil # 4.05 X10^3/uL (2.7-7.7); Neutrophil % 69.4 % (47-70); Platelet Count 250 K/mm3 (150-450); RBC Distribution Width CV 16.5 % (11.6-14.6); RBC Distribution Width SD 51.8 fl (35.1-43.9); White Blood Count 5.8 K/mm3 (4.4-11.0)
[2018-01-10 06:25] LABS: POSITIVE COUNT NO; POSITIVE DIFFERENTIAL NO; POSITIVE MORPHOLOGY NO
[2018-01-10 06:27] LABS: Anion Gap 5 (5-15); BUN 12 mg/dL (7-18); BUN/Creat Ratio 21.4 RATIO (10-20); Calcium,Total 9.3 mg/dL (8.5-10.1); Chloride 97 mmol/L (98-107); Creatinine, Serum 0.56 mg/dL (0.55-1.02); EST Glomerular Filtration Rate 112 mL/min (>60); Est Glom Filt Rate - Afr Amer 136 mL/min (>60); Estimated Creatinine Clearance 35.88 ml/min; Glucose 85 mg/dL (74-106); Potassium 2.9 mmol/L (3.5-5.1); Sodium Level 141 mmol/L (136-145)
[2018-01-10 06:28] LABS: Vancomycin, Random Level 21.3 ug/mL (0.0-15.0)
[2018-01-10 06:36] LABS: Bedside Glucose 105 mg/dL (70-110)
[2018-01-10] MEDS: Albuterol 2.5 MG/3 ML VIAL.NEB. INHALATION ×3 (06:55→18:55)
[2018-01-10] MEDS: Budesonide Respules 0.5 MG/2 ML AMPUL.NEB. 0.25 MG INHALATION ×2 (06:55→18:55)
[2018-01-10] MEDS: Calcium Carb/Vitamin D 1 TABLET Tablet PO ×2 (10:33→18:03)
[2018-01-10] MEDS: Ceftriaxone 1 GM/50 ML BAG IV (10:34)
[2018-01-10] MEDS: clonazePAM 0.5 MG Tablet GT ×2 (10:34→20:31)
[2018-01-10] MEDS: Tuberculin,Purif.prot.deriv. 50 TU/ML Vial 5 ML ID (11:21)
--- NOTE | 2018-01-10 11:27 | PCM.RX.CS ---
Consult Pharmacy has been consulted to manage selected antiobiotic: Vancomycin Type of Consult: Follow-up Prior Doses of Antibiotics Received/Current Regimen: Vancomycin 1250mg q12h since 12/31/17 Labs: Sodium 141 mmol/L (136-145) 01/10/18 05:10 Potassium 2.9 mmol/L (3.5-5.1) L 01/10/18 05:10 Chloride 97 mmol/L (98-107) L 01/10/18 05:10 Carbon Dioxide 39.0 mmol/L (21.0-32.0) H 01/10/18 05:10 Anion Gap 5 (5-15) 01/10/18 05:10 BUN 12 mg/dL (7-18) 01/10/18 05:10 Creatinine 0.56 mg/dL (0.55-1.02) 01/10/18 05:10 Est GFR (MDRD) Af Amer 136 mL/min (>60) 01/10/18 05:10 Est GFR (MDRD) Non-Af 112 mL/min (>60) 01/10/18 05:10 BUN/Creatinine Ratio 21.4 RATIO (10-20) H 01/10/18 05:10 Glucose 85 mg/dL (74-106) 01/10/18 05:10 Vancomycin Trough 24.2 ug/mL (5.0-15.0) H 01/09/18 08:15 Random Vancomycin 21.3 ug/mL (0.0-15.0) H 01/10/18 05:10 Weight used for dosin.7 kg Estimated Creatinine Clearance: 36mg/dl Goal Trough: 10-15 mcg/mL Pharmacy Plan for Drug Dosing: Random Vancomycin level done on 01/10/18 at 0600. Came back at 21. Down from 24 but still high. Showing that pt not clearing quickly. Will do another random level in 24 hours (01/11/18 at 0600) and re evaluate. Pharmacy Service will continue to monitor and adjust dosing as required. Follow-Up Labs: Trough Vancomycin - random level at 0600 Labs to be done on [date and time ordered]: random 01/11/18 at 0600
[2018-01-10 11:56] LABS: Bedside Glucose 125 mg/dL (70-110)
--- NOTE | 2018-01-10 13:00 | SP.MBSS_ITS ---
PRIMARY / SECONDARY DIAGNOSIS: profound oropharyngeal dysphagia (R13.12) REFERRING PHYSICIAN: Dr. Valverde CURRENT DIET: NPO w/ PEG tube for nutrition/hydration/medication (Jevity 1.5 65 cc/hr) DENTITION: WFL MENTAL STATUS: WNL RESPIRATORY STATUS: O2 at 3L/min via nasal cannula PREVIOUS MODIFIED BARIUM SWALLOW STUDY: 12/28/2017 MBS revealed profound oropharyngeal dysphagia (R13.12) w/ SILENT aspiration, recommended NPO, repeat MBS prior to advancement. PEG placed 12/30/2017. REASON FOR REFERRAL: Patient is a 72 year old female referred for a repeat modified barium swallow ( MBS) study as the patient has demonstrated improved swallow function during bedside assessment, but is a known silent aspirator which necessitates objective assessment of the patient?s oropharyngeal swallow function under fluoroscopy. Please see MBS dated 12/28/2017 for additional information. 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 Dr. Mobley was the radiologist present for this evaluation. This study was recorded in the lateral view and images were sent to PACs for storage. The following consistencies were presented to this patient for analysis of oropharyngeal swallow function: thin liquid, nectar thickened liquid, pudding, and a regular textured Matilda Doone shortbread cookie. Results of the MBS are as follows: PENETRATION / ASPIRATION SCALE (WYNN): 1 = does not enter airway 2 = enters airway/above vocal folds/ejected 3 = enters airway/above vocal folds/not ejected 4 = enters airway/contacts vocal folds/ejected 5 = enters airway/contacts vocal folds/not ejected 6 = enters airway/below vocal folds/ejected 7 = enters airway/below vocal folds/not ejected despite effort 8 = enters airway/below vocal folds/no effort PENETRATION / ASPIRATION SCALE (SCORE): Thin liquid - 5 mL tsp.: 8 = enters airway/below vocal folds/no effort Thin liquid via cup (single sip): 5 = enters airway/contacts vocal folds/not ejected Thin liquid via cup (single sip w/ chin tuck): 3 = enters airway/above vocal folds/not ejected Carefree thickened liquid via cup (single sip): 2 = enters airway/above vocal folds/ejected Carefree thickened liquid via cup (single sip): 1 = does not enter airway contrast undercoated epiglottis Puddin = does not enter airway ? Matilda ramos cookie: 1 = does not enter airway Carefree thickened liquid via cup (single sip): 1 = does not enter airway Thin liquid via cup (single sip): 1 = does not enter airway; pharyngeal residue after initial swallow 2 = enters airway/above vocal folds/ejected Thin liquid via cup (single sip): 1 = does not enter airway IMPRESSION: DIAGNOSIS: moderate oropharyngeal dysphagia (R13.12) ORAL PHASE CHARACTERIZED BY: LABIAL SEAL: no labial escape TONGUE CONTROL DURING BOLUS MANIPULATION: posterior escape of less than half of bolus BOLUS PREPARATION / MASTICATION: disorganized chewing/mashing with solid pieces of bolus unchewed BOLUS TRANSPORT / LINGUAL MOTION: repetitive/disorganized tongue motion ORAL RESIDUE: residue collection on oral structures PHARYNGEAL PHASE CHARACTERIZED BY: INITIATION OF PHARYNGEAL SWALLOW: bolus head in valleculae at first hyoid excursion SOFT PALATE ELEVATION: trace column of contrast/air between soft palate and pharyngeal wall LARYNGEAL ELEVATION: partial superior movement of thyroid cartilage/partial approximation of arytenoids cartilage to epiglottic petiole ANTERIOR HYOID EXCURSION: partial anterior movement EPIGLOTTIC MOVEMENT: partial epiglottic inversion improved across trials LARYNGEAL VESTIBULE CLOSURE AT HEIGHT OF SWALLOW: incomplete laryngeal vestibule closure with narrow column of air/contrast in laryngeal vestibule PHARYNGEAL STRIPPING WAVE: pharyngeal stripping wave present/complete PHARYNGOESOPHAGEAL SEGMENT OPENING: complete distension and complete duration with no obstruction of flow TONGUE BASE RETRACTION: wide column of contrast between tongue base and posterior pharyngeal wall improved across trials PHARYNGEAL RESIDUE: collection of residue within or on pharyngeal structures ESOPHAGEAL PHASE CHARACTERIZED BY: ESOPHAGEAL BOLUS CLEARANCE IN THE UPRIGHT POSITION: complete clearance; esophageal coating EFFECTS OF TREATMENT STRATEGIES ATTEMPTED: Chin tuck posture = somewhat effective Cough and reswallow = ineffective Cued expectoration = ineffective Effort swallow = ineffective Reduced bolus size = ineffective Double swallow = effective Liquid wash = effective DIET TEXTURE RECOMMENDATIONS: Pureed textures/nectar thickened liquids INTERPRETATION OF RESULTS: Patient presents with moderate oropharyngeal dysphagia (R13.12). Oral phase is marked by suboptimal lingual control with premature pharyngeal bolus entry prior to pharyngeal swallow onset. Prolonged mastication w/ inability to adequately break down solid texture bolus, swallowing partially chewed solids. Disorganized lingual motion appreciated w/ A-P bolus transit d/t reduced intraoral strength. Pharyngeal phase is marked by delayed triggering of pharyngeal swallow onset. Poor tongue base to posterior pharyngeal wall contact noted, creating suboptimal pressure for pharyngeal bolus clearance w/ a collection of residue remaining diffusely spread throughout the pharynx post deglutition (tongue base , valleculae, posterior pharyngeal wall, aryepiglottic folds, pyriforms). Initially, very minimal epiglottic inversion was appreciated w/ reduced arytenoid to epiglottic petiole contact for airway protection. Tongue base retraction, epiglottic inversion, hyolaryngeal elevation and arytenoid to epiglottic petiole contact were noted to improve across trials. Thin liquid entered the laryngeal vestibule, contacting the vocal folds w/ subsequent SILENT aspiration w/ the 1st 5mL teaspoon thin liquid bolus presented. No cough response appreciated. Cued cough and re-swallow/expectoration was ineffective to clear aspirate from the trachea. Use of a double swallow and liquid wash were both effective to clear oral and pharyngeal residue. Although swallow function improved and penetration/aspiration was reduced/eliminated by the end of the study, the patient was noted to initially SILENTLY aspirate with thin liquids, and there for clinical assessment at bedside w/ identification of classic overt signs and symptoms of aspiration cannot be relied upon. RECOMMENDATIONS: DIET:Recommend pureed textures and nectar thickened liquids w/ 1st PO trial to be initiated 01/11/2018 under direct SEWING SUPERVISOR supervision before advancing diet. Anticipate need for patient to continue to receive supplemental feedings via PEG in addition to PO intake, as she appears quite malnourished - dietitian following. COMPENSATORY STRATEGIES RECOMMENDED: small bites/sip, double swallow/liquid wash, remain upright for 30-60 minutes post meal (GERD precaution). NEED FOR ADDITIONAL TREATMENT: Patient requires continued intensive skilled speech-language intervention targeting diet texture management and oropharyngeal strengthening exercises to facilitate improve swallow function and reduce risk of aspiration w/ the goal of returning to the least restrictive level of PO intake by discharge. ADDITIONAL COMMENTS/RECOMMENDATIONS: Results and recommendations were discussed with the Patient and images were reviewed immediately following MBS completion, with the Patient verbalizing understanding and agreement with all recommendations and education provided. IMAGE COUNT: [id number]
--- NOTE | 2018-01-10 13:00 | RAD_ITS ---
STUDY: SWALLOWING STUDY REASON FOR EXAM: Female, 72 years old. Dysphagia TECHNIQUE: The examination was performed with Speech Pathology in attendance. Under fluoroscopic observation, the patient ingested thin barium, thick barium, barium pudding, and barium coated cracker. FLUOROSCOPY TIME: 2:34 minutes/seconds images 23 and 28 RADIOLOGIST INVOLVEMENT: Radiologist was present and providing direct supervision. COMPARISON: None. FINDINGS: The following was observed during swallowing of the various mixtures of barium: Thin Barium: There was laryngeal penetration is improved with chin tuck maneuvers. Thick Barium: There was trace laryngeal penetration. Barium Pudding: Stasis in the vallecula and piriform sinuses cleared with subsequent dry swallows. There was no evidence of aspiration or laryngeal penetration. Barium Coated Cracker: Stasis in the vallecula and piriform sinuses cleared with subsequent dry swallows. There was no evidence of aspiration or laryngeal penetration. RAD/Swallowing Function w/Video IMPRESSION: Supraglottic penetration during thin and thick liquid swallows improved with chin tuck maneuvers. Stasis in the vallecula and piriform sinuses cleared with subsequent dry swallows. The swallow study findings were discussed with the patient by the speech pathologist at the conclusion of the examination. Please see speech pathology report for more information and recommendations. The procedure was performed by speech pathologist under the direct supervision of myself Electronically Signed: Doug Mobley MD at 15:00 EDT Tel , Service support ,
--- NOTE | 2018-01-10 14:34 | NURSING ---
PICC line dressing changed per sterile technique, patient tolerated procedure well. PICC insertion site red with a small area of slough tissue, small amount of dark brown drainage noted. Dr. Valverde made aware, NO for culture. Patient made aware.
--- NOTE | 2018-01-10 16:01 | NURSING ---
Swallow eval complete, Per ST patient did well and showed improvement. ST to monitor patient for meal tomorrow to see how she does with puree/nectar diet.
[2018-01-10 16:51] LABS: Bedside Glucose 117 mg/dL (70-110)
--- NOTE | 2018-01-10 17:02 | NURSING ---
Dr. Valverde reviewed labs, NO for KCL 50meq x1 then 25meq daily, BMP 01/12/18
[2018-01-10] MEDS: Jevity 1.5 1,000 ML 45 ML GT (19:38)
[2018-01-10] MEDS: Mirtazapine 15 MG Tablet GT (20:31)
[2018-01-11] VITALS (7 sets, daily range): BP systolic 126–139; BP diastolic 57–77; PULSE 74–105; RESP 16–20; TEMP 35.3; O2SAT 97–98
[2018-01-11] MEDS: dilTIAZem 60 MG Tablet GT ×5 (00:02→23:18)
[2018-01-11 00:11] LABS: Bedside Glucose 134 mg/dL (70-110)
[2018-01-11] MEDS: Metoprolol Tartrate 25 MG Tablet GT ×2 (05:16→17:50)
[2018-01-11] MEDS: Menthol/Lanolin/Calamine/Znox 113 GM Tube 1 APPLIC TOPICAL ×2 (05:16→23:22)
[2018-01-11] MEDS: Levothyroxine 88 MCG Tablet GT (05:16)
[2018-01-11] MEDS: APIXABAN 2.5 MG TABLET GT ×2 (05:16→17:50)
[2018-01-11] MEDS: Famotidine 20 MG Tablet 40 MG GT (05:16)
[2018-01-11] MEDS: Fluticasone 0.05% 1 SPRAY NASAL.SRY 2 SPRAY NASAL (05:16)
--- NOTE | 2018-01-11 05:17 | NURSING ---
Pt remained in contact precautions for MRSA and klebsiella in sputum during shift
--- NOTE | 2018-01-11 05:18 | NURSING ---
Residuals zero during shift. Peg placement checked via auscultation and aspiration for medication administration. Will continue to monitor and asses.
[2018-01-11 06:26] LABS: Bedside Glucose 121 mg/dL (70-110)
[2018-01-11 06:28] LABS: Vancomycin, Random Level 11.5 ug/mL (0.0-15.0)
[2018-01-11] MEDS: Ceftriaxone 1 GM/50 ML BAG IV (08:50)
[2018-01-11] MEDS: Calcium Carb/Vitamin D 1 TABLET Tablet PO ×2 (08:50→17:50)
[2018-01-11] MEDS: clonazePAM 0.5 MG Tablet GT ×2 (08:50→21:04)
[2018-01-11] MEDS: 0.9% NaCl PICC Flush IV ×2 (08:53→09:57)
[2018-01-11] MEDS: morphine (oral solution) 10MG/0.5ML Syringe 5 MG SL ×3 (09:30→21:10)
--- NOTE | 2018-01-11 09:36 | PCM.RX.CS ---
Consult Pharmacy has been consulted to manage selected antiobiotic: Vancomycin Type of Consult: Follow-up Suspected Infection: Other Prior Doses of Antibiotics Received/Current Regimen: VANCOMYCIN 1250MG IV Q12HRS: 01/09 @0902 Labs: Sodium 141 mmol/L (136-145) 01/10/18 05:10 Potassium 2.9 mmol/L (3.5-5.1) L 01/10/18 05:10 Chloride 97 mmol/L (98-107) L 01/10/18 05:10 Carbon Dioxide 39.0 mmol/L (21.0-32.0) H 01/10/18 05:10 Anion Gap 5 (5-15) 01/10/18 05:10 BUN 12 mg/dL (7-18) 01/10/18 05:10 Creatinine 0.56 mg/dL (0.55-1.02) 01/10/18 05:10 Est GFR (MDRD) Af Amer 136 mL/min (>60) 01/10/18 05:10 Est GFR (MDRD) Non-Af 112 mL/min (>60) 01/10/18 05:10 BUN/Creatinine Ratio 21.4 RATIO (10-20) H 01/10/18 05:10 Glucose 85 mg/dL (74-106) 01/10/18 05:10 Vancomycin Trough 24.2 ug/mL (5.0-15.0) H 01/09/18 08:15 Random Vancomycin 11.5 ug/mL (0.0-15.0) 01/11/18 05:15 Weight used for dosin.7 kg Estimated Creatinine Clearance: 36ML/MIN Goal Trough: 10-15 mcg/mL Pharmacy Plan for Drug Dosing: The patient had another random level come back 01/11/18 @ 0515, which resulted in a value of 11.5 (44hrs from last administered dose). Since the patient is back in the therapeutic window, will plan on resuming her vancomycin. Due to changes in renal function and an elevated trough, will plan on drawing another trough prior to the 3rd dose of new regimen to reassess this new dosing plan. PLAN/RECOMMENDATIONS 1. START vancomycin 1250mg IV Q24hrs 2. Trough scheduled for 01/13/18 @0930, prior to the 3rd scheduled dose of new regimen 3. Pharmacy will continue to monitor the patient daily and make changes as appropriate
--- NOTE | 2018-01-11 10:43 | NURSING ---
Addendum entered by Elvia Bobo 01/11/18 18:25: DR GUPTA NOTIFIED OF FINAL GRAM STAIN RESULTS, AWAITING CULTURE RESUTLS. OLD PICC PULLED BY SUMA RN. PER ORDER. REVA APPLIED. Original Note: Addendum entered by Elvia Bobo 01/11/18 11:32: RN from [facility] will be here at noon for new picc placement. Pt updated. Original Note: Addendum entered by Elvia Bobo 01/11/18 11:06: PROCESS DEVELOPMENT MANAGER notified , will call back with arrival time. Original Note: IVT here to assess PICC line, culture sent on site yesterday. awaiting results. Order for new picc line placement. Will call PROCESS DEVELOPMENT MANAGER.
[2018-01-11] MEDS: Budesonide Respules 0.5 MG/2 ML AMPUL.NEB. 0.25 MG INHALATION ×2 (11:12→18:50)
[2018-01-11] MEDS: Albuterol 2.5 MG/3 ML VIAL.NEB. INHALATION ×2 (11:13→18:50)
--- NOTE | 2018-01-11 11:43 | CASEMGMT ---
Plan of care meeting held. Resident present as well as resident family. No discharge date set at this time. Resident plans to continue with further care and treatment on the Transitional Care Unit at this time. Resident plans to discharge home with spouse at time of discharge. Support given. Will continue to follow. Marielnea LONG, CHIEF UNIT FORESTER
--- NOTE | 2018-01-11 12:32 | NURSING ---
pt placed in modified precautions, pt aware of needing to wash hands frequently. discussed with Gideon in infection control.
--- NOTE | 2018-01-11 13:50 | RAD_ITS ---
STUDY: X-RAY CHEST REASON FOR EXAM: Female, 72 years old. PIC LINE PLACEMENT TECHNIQUE: Single AP portable view of the chest. COMPARISON: None. FINDINGS: The right-sided PICC line is seen in place with catheter extending to the SVC. There is a new PICC line on the left side its tip is at the lower part of the SVC is in good position. EKG electrodes are seen. Hyperinflation. Stable lucency in the right lung apex with increased markings and areas of confluence in the right upper lobe suggestive of chronic obstructive pulmonary disease with bullous formation. Patchy areas of increased markings in the right midlung and lower lung. Essentially unchanged. Loss in the right hemithorax. The left lung is unremarkable. There is mild cardiac enlargement. Normal mediastinum and lindsey. Normal visualized pulmonary arteries. There is atherosclerotic tortuosity of the aortic arch and descending thoracic aorta. Normal visualized thoracic spine. Normal visualized ribs, clavicles, and shoulders. There is no demonstrated abnormality of the visualized soft tissue structures of the upper abdomen. RAD/CXR for Line Placement IMPRESSION: Stable changes in the right hemithorax with chronic obstructive pulmonary disease with scarring and bullous changes. The right-sided PICC line is seen in place with catheter extending to the SVC. There is a new PICC line on the left side its tip is at the lower part of the SVC is in good position. Electronically Signed: Doug Mobley MD at 14:55 EDT Tel , Service support ,
[2018-01-11] MEDS: Jevity 1.5 1,000 ML 45 ML GT (17:57)
--- NOTE | 2018-01-11 18:07 | NURSING ---
NO RESIDUALS TODAY FROM PEG TUBE, PT TOLERATED WELL
[2018-01-11] MEDS: Mirtazapine 15 MG Tablet GT (21:05)
[2018-01-12] MEDS: Menthol/Lanolin/Calamine/Znox 113 GM Tube 1 APPLIC TOPICAL ×2 (06:27→21:12)
[2018-01-12] MEDS: APIXABAN 2.5 MG TABLET GT ×2 (06:28→16:42)
[2018-01-12] MEDS: dilTIAZem 60 MG Tablet GT ×4 (06:28→23:08)
[2018-01-12 06:29] VITALS: BP 134/61; PULSE 109
[2018-01-12] MEDS: Metoprolol Tartrate 25 MG Tablet GT ×2 (06:29→16:42)
[2018-01-12] MEDS: Famotidine 20 MG Tablet 40 MG GT (06:29)
[2018-01-12] MEDS: Fluticasone 0.05% 1 SPRAY NASAL.SRY 2 SPRAY NASAL (06:30)
[2018-01-12] MEDS: Levothyroxine 88 MCG Tablet GT (06:30)
[2018-01-12] MEDS: 0.9% NaCl PICC Flush IV ×4 (06:52→23:09)
[2018-01-12 07:19] LABS: Anion Gap 1 (5-15); BUN 17 mg/dL (7-18); BUN/Creat Ratio 27.3 RATIO (10-20); Calcium,Total 8.7 mg/dL (8.5-10.1); Chloride 98 mmol/L (98-107); Creatinine, Serum 0.62 mg/dL (0.55-1.02); EST Glomerular Filtration Rate 100 mL/min (>60); Est Glom Filt Rate - Afr Amer 121 mL/min (>60); Estimated Creatinine Clearance 34.83 ml/min; Glucose 119 mg/dL (74-106); Potassium 3.6 mmol/L (3.5-5.1); Sodium Level 140 mmol/L (136-145)
[2018-01-12] MEDS: Calcium Carb/Vitamin D 1 TABLET Tablet PO ×2 (08:54→16:42)
[2018-01-12] MEDS: clonazePAM 0.5 MG Tablet GT ×2 (09:00→21:13)
[2018-01-12] MEDS: morphine (oral solution) 10MG/0.5ML Syringe 5 MG SL (09:00)
--- NOTE | 2018-01-12 10:33 | NURSING ---
Sandra from speech reported that pt can have meds crushed in puree.
[2018-01-12] MEDS: Ceftriaxone 1 GM/50 ML BAG IV (11:01)
[2018-01-12] MEDS: 0.9% NaCl IVPB Med Flush (250 mL) 15 ML IV (11:08)
--- NOTE | 2018-01-12 12:04 | NURSING ---
pt requesting ativan as per her home regimen. Dr Valverde notified of pt request, wants pt to continue on klonopin because it lasts longer. New order to give klonopin 0.5mg x1 now.
[2018-01-12] MEDS: clonazePAM 0.5 MG Tablet PO (12:13)
--- NOTE | 2018-01-12 13:14 | NURSING ---
bait packer recommendation to change continuous tube feeds to boluses if pt eats <50% on meals w/175cc free water flushes after each meal.
[2018-01-12] MEDS: Budesonide Respules 0.5 MG/2 ML AMPUL.NEB. 0.25 MG INHALATION ×2 (14:15→18:37)
[2018-01-12] MEDS: Albuterol 2.5 MG/3 ML VIAL.NEB. INHALATION ×2 (14:15→18:37)
[2018-01-12 14:59] VITALS: PULSE 92; RESP 18
[2018-01-12 16:00] VITALS: BP 153/96; PULSE 109; RESP 18; TEMP 36; O2SAT 100
[2018-01-12 16:42] VITALS: PULSE 109
[2018-01-12 18:37] VITALS: PULSE 79; RESP 18; O2SAT 95
[2018-01-12] MEDS: Mirtazapine 15 MG Tablet GT (21:14)
[2018-01-12] MEDS: BACITRACIN 15 GM Tube 1 APPLIC TOPICAL (23:08)
[2018-01-13] MEDS: BACITRACIN 15 GM Tube 1 APPLIC TOPICAL ×2 (05:30→21:36)
[2018-01-13] MEDS: Famotidine 20 MG Tablet 40 MG GT (05:30)
[2018-01-13] MEDS: Fluticasone 0.05% 1 SPRAY NASAL.SRY 2 SPRAY NASAL (05:30)
[2018-01-13 05:31] VITALS: BP 144/75; PULSE 100
[2018-01-13] MEDS: APIXABAN 2.5 MG TABLET GT ×2 (05:31→18:00)
[2018-01-13] MEDS: Levothyroxine 88 MCG Tablet GT (05:31)
[2018-01-13] MEDS: Metoprolol Tartrate 25 MG Tablet GT ×2 (05:31→17:59)
[2018-01-13] MEDS: dilTIAZem 60 MG Tablet GT ×3 (05:32→18:00)
[2018-01-13] MEDS: Menthol/Lanolin/Calamine/Znox 113 GM Tube 1 APPLIC TOPICAL ×2 (05:42→21:36)
[2018-01-13 06:35] VITALS: PULSE 109; RESP 16; O2SAT 100
[2018-01-13] MEDS: Budesonide Respules 0.5 MG/2 ML AMPUL.NEB. 0.25 MG INHALATION ×2 (06:35→19:50)
[2018-01-13] MEDS: Albuterol 2.5 MG/3 ML VIAL.NEB. INHALATION ×3 (06:35→19:50)
[2018-01-13] MEDS: Calcium Carb/Vitamin D 1 TABLET Tablet PO ×2 (09:27→18:00)
[2018-01-13] MEDS: 0.9% NaCl IVPB Med Flush (250 mL) 15 ML IV (09:27)
[2018-01-13] MEDS: Ceftriaxone 1 GM/50 ML BAG IV (09:27)
[2018-01-13] MEDS: clonazePAM 0.5 MG Tablet GT ×2 (09:28→21:30)
[2018-01-13 10:28] LABS: Vancomycin, Trough Level 12.7 ug/mL (5.0-15.0)
--- NOTE | 2018-01-13 12:31 | PCM.RX.CS ---
Consult Type of Consult: Follow-up Suspected Infection: Pneumonia Prior Doses of Antibiotics Received/Current Regimen: Patient has been receiving 1250mg iv q24h Labs: Sodium 140 mmol/L (136-145) 01/12/18 06:50 Potassium 3.6 mmol/L (3.5-5.1) 01/12/18 06:50 Chloride 98 mmol/L (98-107) 01/12/18 06:50 Carbon Dioxide 41.0 mmol/L (21.0-32.0) H 01/12/18 06:50 Anion Gap 1 (5-15) L 01/12/18 06:50 BUN 17 mg/dL (7-18) 01/12/18 06:50 Creatinine 0.62 mg/dL (0.55-1.02) 01/12/18 06:50 Est GFR (MDRD) Af Amer 121 mL/min (>60) 01/12/18 06:50 Est GFR (MDRD) Non-Af 100 mL/min (>60) 01/12/18 06:50 BUN/Creatinine Ratio 27.3 RATIO (10-20) H 01/12/18 06:50 Glucose 119 mg/dL (74-106) H 01/12/18 06:50 Vancomycin Trough 12.7 ug/mL (5.0-15.0) 01/13/18 05:32 Random Vancomycin 11.5 ug/mL (0.0-15.0) 01/11/18 05:15 Microbiology: Microbiology 01/10/18 13:30 Catheter Insertion Site Gram Stain - Final 01/10/18 13:30 Catheter Insertion Site Wound Culture - Final No growth aerobically. Weight used for dosin.7 kg Estimated Creatinine Clearance: 35 ml/min Goal Trough: 10-15 mcg/mL Pharmacy Plan for Drug Dosing: Vancomyxin trough 01/13/18 @0530,21 hrs post last dose, 12.7 mcg/ml. Renal status remains same. Will continue same dose and get repeat trough on 01/17/18 @0930 Pharmacy Service will continue to monitor and adjust dosing as required. Follow-Up Labs: Trough Vancomycin - 30 min before 1000 dose on 01/17/18 Labs to be done on [date and time ordered]: 01/17/18 @0930
[2018-01-13 13:00] VITALS: PULSE 101; RESP 16
--- NOTE | 2018-01-13 13:53 | CASEMGMT ---
Brief interview for mental status (BIMS) and resident mood interview (PHQ-9) completed on this day. BIMS score 13/15. PHQ-9 score 01/06
[2018-01-13 15:49] VITALS: BP 109/70; PULSE 83; RESP 18; TEMP 36.3; O2SAT 98
[2018-01-13 17:59] VITALS: BP 109/70; PULSE 83
[2018-01-13] MEDS: morphine (oral solution) 10MG/0.5ML Syringe 5 MG SL (18:10)
[2018-01-13] MEDS: Clotrimazole/Betamethasone 1 Tube 1 APPLIC TOPICAL (18:20)
[2018-01-13] MEDS: Jevity 1.5. 1,000 ML Bottle 240 ML GT (18:21)
--- NOTE | 2018-01-13 18:40 | RAD_ITS ---
STUDY: X-RAY - ABDOMEN/PELVIS REASON FOR EXAM: Female, 72 years old. Diarrhea TECHNIQUE: Single AP view of the abdomen / pelvis. COMPARISON: None. FINDINGS: Increased interstitial markings disease and small right pleural effusion or pleural reaction. There is an unremarkable bowel gas pattern. Increased stool and residual contrast in the colon. Tubing projects over the left side of the abdomen may represent a PEG tube. The visualized liver, spleen and kidneys are grossly normal in size and morphology. Normal soft tissue structures. Normal visualized osseous structures. RAD/Abd Inc Decub and/or Erect IMPRESSION: Increased stool and probable pulmonary fibrosis Electronically Signed: Ramone Barton MD at 19:09 EDT , Service support ,
[2018-01-13 19:50] VITALS: PULSE 99; RESP 16
[2018-01-13] MEDS: Mirtazapine 15 MG Tablet GT (21:32)
--- NOTE | 2018-01-13 21:51 | NURSING ---
Dr. Valverde notified of patient's residuals from tube feed at 190. Orders given to give ordered nulytely in the morning instead of at HS.
[2018-01-14] VITALS (8 sets, daily range): BP systolic 123–126; BP diastolic 64–91; PULSE 63–109; RESP 14–16; TEMP 37.2; O2SAT 96–98
[2018-01-14] MEDS: dilTIAZem 60 MG Tablet GT ×4 (00:01→17:28)
[2018-01-14] MEDS: Metoprolol Tartrate 25 MG Tablet GT ×2 (05:10→17:27)
[2018-01-14] MEDS: APIXABAN 2.5 MG TABLET GT ×2 (05:10→17:28)
[2018-01-14] MEDS: Fluticasone 0.05% 1 SPRAY NASAL.SRY 2 SPRAY NASAL (05:10)
[2018-01-14] MEDS: Famotidine 20 MG Tablet 40 MG GT (05:11)
[2018-01-14] MEDS: Levothyroxine 88 MCG Tablet GT (05:12)
[2018-01-14] MEDS: Electrolyte Solution/Peg's 4000 ML 2000 ML GT (05:16)
[2018-01-14] MEDS: Clotrimazole/Betamethasone 1 Tube 1 APPLIC TOPICAL ×2 (05:22→17:28)
[2018-01-14] MEDS: BACITRACIN 15 GM Tube 1 APPLIC TOPICAL ×2 (05:24→22:04)
[2018-01-14] MEDS: Menthol/Lanolin/Calamine/Znox 113 GM Tube 1 APPLIC TOPICAL ×2 (05:25→22:04)
[2018-01-14] MEDS: Albuterol 2.5 MG/3 ML VIAL.NEB. INHALATION ×3 (07:00→19:15)
[2018-01-14] MEDS: Budesonide Respules 0.5 MG/2 ML AMPUL.NEB. 0.25 MG INHALATION ×2 (07:00→19:15)
--- NOTE | 2018-01-14 08:55 | PCA ---
PATIENT IS SITTING IN ROOM, STAFF SUPERVISING
[2018-01-14] MEDS: Calcium Carb/Vitamin D 1 TABLET Tablet PO ×2 (09:39→17:28)
[2018-01-14] MEDS: clonazePAM 0.5 MG Tablet GT ×2 (09:39→22:00)
[2018-01-14] MEDS: morphine (oral solution) 10MG/0.5ML Syringe 5 MG SL ×2 (09:46→21:45)
[2018-01-14] MEDS: Ceftriaxone 1 GM/50 ML BAG IV (09:53)
[2018-01-14] MEDS: Mirtazapine 15 MG Tablet GT (22:00)
[2018-01-15] VITALS (7 sets, daily range): BP systolic 121–141; BP diastolic 46–68; PULSE 70–110; RESP 16–18; TEMP 36.8; O2SAT 100
[2018-01-15] MEDS: dilTIAZem 60 MG Tablet GT ×2 (00:42→05:47)
[2018-01-15] MEDS: Levothyroxine 88 MCG Tablet GT (05:28)
[2018-01-15] MEDS: Famotidine 20 MG Tablet 40 MG GT (05:28)
[2018-01-15] MEDS: Metoprolol Tartrate 25 MG Tablet GT (05:28)
[2018-01-15] MEDS: BACITRACIN 15 GM Tube 1 APPLIC TOPICAL ×2 (05:29→19:55)
[2018-01-15] MEDS: Menthol/Lanolin/Calamine/Znox 113 GM Tube 1 APPLIC TOPICAL ×2 (05:29→19:55)
[2018-01-15] MEDS: APIXABAN 2.5 MG TABLET GT (05:29)
[2018-01-15] MEDS: Fluticasone 0.05% 1 SPRAY NASAL.SRY 2 SPRAY NASAL (05:29)
[2018-01-15] MEDS: Clotrimazole/Betamethasone 1 Tube 1 APPLIC TOPICAL ×2 (05:31→16:06)
[2018-01-15] MEDS: Budesonide Respules 0.5 MG/2 ML AMPUL.NEB. 0.25 MG INHALATION ×2 (07:04→19:58)
[2018-01-15] MEDS: Albuterol 2.5 MG/3 ML VIAL.NEB. INHALATION ×3 (07:04→19:58)
[2018-01-15] MEDS: clonazePAM 0.5 MG Tablet GT (08:06)
[2018-01-15] MEDS: Ceftriaxone 1 GM/50 ML BAG IV (08:07)
[2018-01-15] MEDS: Calcium Carb/Vitamin D 1 TABLET Tablet PO ×2 (08:07→16:05)
[2018-01-15] MEDS: morphine (oral solution) 10MG/0.5ML Syringe 5 MG SL ×2 (08:31→16:08)
[2018-01-15] MEDS: dilTIAZem 60 MG Tablet PO ×3 (10:33→19:58)
[2018-01-15] MEDS: APIXABAN 2.5 MG TABLET PO (16:05)
[2018-01-15] MEDS: Metoprolol Tartrate 25 MG Tablet PO (16:05)
[2018-01-15] MEDS: Senna/Docusate Sodium 1 Tablet 2 TABLET PO (16:05)
[2018-01-15] MEDS: Mirtazapine 15 MG Tablet PO (19:57)
[2018-01-15] MEDS: clonazePAM 0.5 MG Tablet PO (20:05)
[2018-01-15] MEDS: Ondansetron ODT 4 MG Tablet PO (20:09)
[2018-01-16] VITALS (8 sets, daily range): BP systolic 117–137; BP diastolic 58–78; PULSE 93–121; RESP 16–18; TEMP 36.5; O2SAT 99–100
[2018-01-16] MEDS: Senna/Docusate Sodium 1 Tablet 2 TABLET PO (05:43)
[2018-01-16] MEDS: Famotidine 20 MG Tablet 40 MG PO (05:43)
[2018-01-16] MEDS: dilTIAZem 60 MG Tablet PO ×3 (05:44→16:09)
[2018-01-16] MEDS: Levothyroxine 88 MCG Tablet PO (05:44)
[2018-01-16] MEDS: Polyethylene Glycol 3350 17 GM PACKET PO (05:44)
[2018-01-16] MEDS: APIXABAN 2.5 MG TABLET PO ×2 (05:44→16:09)
[2018-01-16] MEDS: BACITRACIN 15 GM Tube 1 APPLIC TOPICAL ×2 (05:51→20:43)
[2018-01-16] MEDS: Clotrimazole/Betamethasone 1 Tube 1 APPLIC TOPICAL ×2 (05:51→16:10)
[2018-01-16] MEDS: Fluticasone 0.05% 1 SPRAY NASAL.SRY 2 SPRAY NASAL (05:51)
[2018-01-16] MEDS: Menthol/Lanolin/Calamine/Znox 113 GM Tube 1 APPLIC TOPICAL ×2 (05:52→20:54)
[2018-01-16] MEDS: Metoprolol Tartrate 25 MG Tablet PO ×2 (05:53→16:08)
[2018-01-16] MEDS: morphine (oral solution) 10MG/0.5ML Syringe 5 MG SL ×2 (06:31→20:42)
[2018-01-16] MEDS: Budesonide Respules 0.5 MG/2 ML AMPUL.NEB. 0.25 MG INHALATION (07:15)
[2018-01-16] MEDS: Albuterol 2.5 MG/3 ML VIAL.NEB. INHALATION ×2 (07:15→13:30)
[2018-01-16] MEDS: Ondansetron ODT 4 MG Tablet PO (07:21)
[2018-01-16] MEDS: Calcium Carb/Vitamin D 1 TABLET Tablet PO ×2 (08:23→16:09)
[2018-01-16] MEDS: clonazePAM 0.5 MG Tablet PO ×2 (08:24→20:37)
[2018-01-16] MEDS: 0.9% NaCl IVPB Med Flush (250 mL) 15 ML IV (09:59)
[2018-01-16] MEDS: 0.9% NaCl PICC Flush IV ×2 (10:04→20:42)
[2018-01-16] MEDS: Ceftriaxone 1 GM/50 ML BAG IV (11:18)
--- NOTE | 2018-01-16 13:06 | NURSING ---
PT feels that roxanol is not holding her as long as the methadone did at home for her shingle pain. Dr Valverde notified, no new orders wants her to continue with roxanol as ordered. PT c/o coccyx/buttocks discomfort, mepilex intact. Gel cushion given with relief. PT noted that she is coughing more today, pt just began drinking thin liquids per brunson water protocol. sputum, thick vega color. will continue to monitor.
--- NOTE | 2018-01-16 15:29 | CASEMGMT ---
Social Work Spoke with resident in room. Resident is wanting to transition to home. Resident aware that resident continues to have I.V. therapy and that one I.V. does not have a stop date and the other I.V. stop date is 01/29/18. Resident wanting this social worker psychiatric to look into possible home I.V. therapy. Resident aware that Medicare does not typically cover I.V therapy within the home but that this social worker psychiatric can do a benefit check through [facility]. Resident also has a prescription drug coverage plan that sometimes assist with I.V. therapy coverage in the home. Resident to have spouse bring in prescription drug coverage card tomorrow. This social worker psychiatric to send information to [facility] tomorrow after obtaining prescription drug coverage card. Support given. Will continue to follow. Marielena LONG, TABLE TOP TILE SETTER
--- NOTE | 2018-01-16 16:11 | NURSING ---
PEG tube flushed 60 ml NS
[2018-01-16] MEDS: Mirtazapine 15 MG Tablet PO (20:37)
[2018-01-17] MEDS: dilTIAZem 60 MG Tablet PO ×5 (00:14→23:57)
[2018-01-17 05:37] LABS: Absolute Neutrophil Count 5.1 X10^3/uL (2.0-7.7); Basophil# 0.02 X10^3/uL; Basophil% 0.3 % (0-1); Eosinophils% 2.9 % (0-5); Hematocrit 31.1 % (37-47); Hemoglobin 9.4 g/dl (12.0-15.0); Lymphocyte % 14.3 % (19-41); Mean Corp Hgb Conc 30.2 g/gl (32-36); Mean Corpuscular Hgb 26.2 pg (27.0-32.0); Mean Corpuscular Volume 86.6 fL (81-99); Mean Platelet Vol. 10.5 fl (6.2-12.0); Monocyte# 0.63 X10^3/uL; Neutrophil % 73.2 % (47-70); Platelet Count 183 K/mm3 (150-450); RBC Distribution Width CV 15.9 % (11.6-14.6); RBC Distribution Width SD 49.4 fl (35.1-43.9); Red Blood Count 3.59 M/mm3 (4.2-5.4)
[2018-01-17 05:49] LABS: Anion Gap 4 (5-15); BUN 11 mg/dL (7-18); BUN/Creat Ratio 14.9 RATIO (10-20); Calcium,Total 8.6 mg/dL (8.5-10.1); Chloride 102 mmol/L (98-107); Creatinine, Serum 0.74 mg/dL (0.55-1.02); EST Glomerular Filtration Rate 82 mL/min (>60); Est Glom Filt Rate - Afr Amer 99 mL/min (>60); Estimated Creatinine Clearance 34.83 ml/min; Glucose 74 mg/dL (74-106); Potassium 3.3 mmol/L (3.5-5.1); Sodium Level 143 mmol/L (136-145)
[2018-01-17 05:52] LABS: POSITIVE COUNT NO; POSITIVE DIFFERENTIAL NO; POSITIVE MORPHOLOGY NO
[2018-01-17 06:10] VITALS: BP 132/74; PULSE 106
[2018-01-17] MEDS: APIXABAN 2.5 MG TABLET PO ×2 (06:10→18:25)
[2018-01-17] MEDS: Metoprolol Tartrate 25 MG Tablet PO ×2 (06:10→18:25)
[2018-01-17] MEDS: Famotidine 20 MG Tablet 40 MG PO (06:10)
[2018-01-17] MEDS: Levothyroxine 88 MCG Tablet PO (06:11)
[2018-01-17] MEDS: Fluticasone 0.05% 1 SPRAY NASAL.SRY 2 SPRAY NASAL (06:11)
[2018-01-17] MEDS: Clotrimazole/Betamethasone 1 Tube 1 APPLIC TOPICAL ×2 (06:14→18:30)
[2018-01-17] MEDS: BACITRACIN 15 GM Tube 1 APPLIC TOPICAL ×2 (06:17→20:32)
[2018-01-17] MEDS: Menthol/Lanolin/Calamine/Znox 113 GM Tube 1 APPLIC TOPICAL ×2 (06:18→20:44)
[2018-01-17 06:31] VITALS: PULSE 89; RESP 16; O2SAT 99
[2018-01-17] MEDS: Budesonide Respules 0.5 MG/2 ML AMPUL.NEB. 0.25 MG INHALATION ×2 (06:31→20:55)
[2018-01-17] MEDS: Albuterol 2.5 MG/3 ML VIAL.NEB. INHALATION ×3 (06:31→20:55)
[2018-01-17] MEDS: Calcium Carb/Vitamin D 1 TABLET Tablet PO ×2 (08:20→18:25)
[2018-01-17] MEDS: clonazePAM 0.5 MG Tablet PO ×2 (08:21→20:30)
[2018-01-17] MEDS: morphine (oral solution) 10MG/0.5ML Syringe 5 MG SL ×2 (08:24→18:35)
--- NOTE | 2018-01-17 10:08 | CASEMGMT ---
Social Work Resident family providing this nursing home social worker with resident prescription drug coverage card. Clinical information faxed to I for a benefits check for possible I.V. therapy within the home. Will continue to follow. Marielena LONG, AIR DRILL OPERATOR
[2018-01-17 10:39] LABS: Vancomycin, Trough Level 19.2 ug/mL (5.0-15.0)
--- NOTE | 2018-01-17 11:05 | PCM.RX.CS ---
Consult Pharmacy has been consulted to manage selected antiobiotic: Vancomycin Type of Consult: Follow-up Suspected Infection: Other Prior Doses of Antibiotics Received/Current Regimen: Vancomycin 1250mg IV Q24hrs: 01/16 @0959 Labs: Sodium 143 mmol/L (136-145) 01/17/18 05:25 Potassium 3.3 mmol/L (3.5-5.1) L 01/17/18 05:25 Chloride 102 mmol/L (98-107) 01/17/18 05:25 Carbon Dioxide 37.0 mmol/L (21.0-32.0) H 01/17/18 05:25 Anion Gap 4 (5-15) L 01/17/18 05:25 BUN 11 mg/dL (7-18) 01/17/18 05:25 Creatinine 0.74 mg/dL (0.55-1.02) 01/17/18 05:25 Est GFR (MDRD) Af Amer 99 mL/min (>60) 01/17/18 05:25 Est GFR (MDRD) Non-Af 82 mL/min (>60) 01/17/18 05:25 BUN/Creatinine Ratio 14.9 RATIO (10-20) 01/17/18 05:25 Glucose 74 mg/dL (74-106) 01/17/18 05:25 Vancomycin Trough 19.2 ug/mL (5.0-15.0) H 01/17/18 09:50 Random Vancomycin 11.5 ug/mL (0.0-15.0) 01/11/18 05:15 Microbiology: Microbiology 01/14/18 06:45 Stool C. difficile DNA Amplification - Final 01/10/18 13:30 Catheter Insertion Site Gram Stain - Final 01/10/18 13:30 Catheter Insertion Site Wound Culture - Final No growth aerobically. Weight used for dosin.6 kg Estimated Creatinine Clearance: 34ml/min Goal Trough: 15-20 mcg/mL Pharmacy Plan for Drug Dosing: Pharmacy Service will continue to monitor and adjust dosing as required. Trough came back in a value of 19.2 (24hr level). Since the patient's level has been gradually rising, will order another level 01/20/18, and adjust if needed PLAN/RECOMMENDATIONS 1. Continue vancomycin 1250mg IV Q24hrs 2. Trough scheduled 01/20/18 @0930 to reassess 3. Pharmacy will continue to monitor daily
[2018-01-17 12:49] VITALS: PULSE 88; RESP 16
[2018-01-17] MEDS: Ceftriaxone 1 GM/50 ML BAG IV (14:08)
[2018-01-17 14:21] VITALS: BP 117/75; PULSE 110; RESP 99; TEMP 36.6; O2SAT 2
--- NOTE | 2018-01-17 16:34 | CASEMGMT ---
Social Work Telephone call from [facility], [place] - [phone]. [place] reporting that resident would have a Co-pay of $220/weekly for Ceftriaxone and a Co-pay of $131.55/weekly for the Vanco. Resident would also have a $20 daily charge. Spoke with resident in room and communicated above information. Resident voicing understanding and planning to speak with family about home I.V. therapy versus outpatient versus continued stay on the Transitional Care Unit. Support given. Team aware of resident possible choosing to discharge. Will continue to follow. Marielena LONG, POINTER MACHINE OPERATOR
[2018-01-17 18:25] VITALS: BP 120/67; PULSE 112
[2018-01-17] MEDS: Senna/Docusate Sodium 1 Tablet 2 TABLET PO (18:25)
[2018-01-17] MEDS: Mirtazapine 15 MG Tablet PO (20:30)
[2018-01-17 20:55] VITALS: PULSE 92; RESP 16
[2018-01-17] MEDS: Ondansetron ODT 4 MG Tablet PO (21:10)
--- NOTE | 2018-01-17 21:10 | NURSING ---
Distal lumen of PICC was flushed with + blood return. Pt repositioned, and hub was changed. Unable to flush Proximal lumen. aware orders entered. Miriam greenhouse manager to be up to administer.
--- NOTE | 2018-01-17 21:15 | CPS ---
PT BATHING DID NOT WANT AERO TX AT THIS TIME
[2018-01-17] MEDS: Alteplase 2 MG/2 ML Vial IV ×2 (21:49→22:33)
[2018-01-18] VITALS (7 sets, daily range): BP systolic 118–135; BP diastolic 58–74; PULSE 98–119; RESP 18; TEMP 36.7; O2SAT 93–98
[2018-01-18] MEDS: APIXABAN 2.5 MG TABLET PO ×2 (06:13→17:31)
[2018-01-18] MEDS: dilTIAZem 60 MG Tablet PO ×4 (06:13→23:29)
[2018-01-18] MEDS: Levothyroxine 88 MCG Tablet PO (06:13)
[2018-01-18] MEDS: Famotidine 20 MG Tablet 40 MG PO (06:14)
[2018-01-18] MEDS: Metoprolol Tartrate 25 MG Tablet PO ×2 (06:17→17:31)
[2018-01-18] MEDS: 0.9% NaCl PICC Flush IV ×2 (06:17→09:58)
[2018-01-18] MEDS: Menthol/Lanolin/Calamine/Znox 113 GM Tube 1 APPLIC TOPICAL ×2 (06:20→20:51)
[2018-01-18] MEDS: Fluticasone 0.05% 1 SPRAY NASAL.SRY 2 SPRAY NASAL (06:20)
[2018-01-18] MEDS: Clotrimazole/Betamethasone 1 Tube 1 APPLIC TOPICAL ×2 (06:21→17:32)
[2018-01-18] MEDS: clonazePAM 0.5 MG Tablet PO ×2 (08:03→20:50)
[2018-01-18] MEDS: Iron Polysaccharide Complex 150 MG CAPSULE PO (08:03)
[2018-01-18] MEDS: Calcium Carb/Vitamin D 1 TABLET Tablet PO ×2 (08:03→17:30)
[2018-01-18] MEDS: 0.9% NaCl IVPB Med Flush (250 mL) 15 ML IV (09:57)
[2018-01-18] MEDS: morphine (oral solution) 10MG/0.5ML Syringe 5 MG SL ×3 (11:41→23:28)
[2018-01-18] MEDS: Ceftriaxone 1 GM/50 ML BAG IV (12:17)
[2018-01-18] MEDS: Senna/Docusate Sodium 1 Tablet 2 TABLET PO (17:31)
[2018-01-18] MEDS: Budesonide Respules 0.5 MG/2 ML AMPUL.NEB. 0.25 MG INHALATION (20:06)
[2018-01-18] MEDS: Albuterol 2.5 MG/3 ML VIAL.NEB. INHALATION (20:06)
[2018-01-18] MEDS: Mirtazapine 15 MG Tablet PO (20:51)
[2018-01-19 05:00] VITALS: BP 135/75; PULSE 111
[2018-01-19] MEDS: Metoprolol Tartrate 25 MG Tablet PO ×2 (05:00→17:08)
[2018-01-19] MEDS: Fluticasone 0.05% 1 SPRAY NASAL.SRY 2 SPRAY NASAL (05:00)
[2018-01-19] MEDS: APIXABAN 2.5 MG TABLET PO ×2 (05:01→17:07)
[2018-01-19] MEDS: Senna/Docusate Sodium 1 Tablet 2 TABLET PO ×2 (05:01→17:07)
[2018-01-19] MEDS: Levothyroxine 88 MCG Tablet PO (05:01)
[2018-01-19] MEDS: dilTIAZem 60 MG Tablet PO ×4 (05:02→23:52)
[2018-01-19] MEDS: Famotidine 20 MG Tablet 40 MG PO (05:02)
[2018-01-19] MEDS: Clotrimazole/Betamethasone 1 Tube 1 APPLIC TOPICAL ×2 (05:09→17:16)
[2018-01-19] MEDS: Menthol/Lanolin/Calamine/Znox 113 GM Tube 1 APPLIC TOPICAL ×2 (05:12→21:03)
[2018-01-19] MEDS: 0.9% NaCl PICC Flush IV ×2 (05:14→10:52)
[2018-01-19 05:39] LABS: Anion Gap 3 (5-15); BUN 11 mg/dL (7-18); BUN/Creat Ratio 13.5 RATIO (10-20); Calcium,Total 9.1 mg/dL (8.5-10.1); Chloride 104 mmol/L (98-107); Creatinine, Serum 0.81 mg/dL (0.55-1.02); EST Glomerular Filtration Rate 73 mL/min (>60); Est Glom Filt Rate - Afr Amer 88 mL/min (>60); Estimated Creatinine Clearance 42.46 ml/min; Glucose 80 mg/dL (74-106); Potassium 4.2 mmol/L (3.5-5.1); Sodium Level 144 mmol/L (136-145)
[2018-01-19 07:23] VITALS: PULSE 86; RESP 18; O2SAT 100
[2018-01-19] MEDS: Albuterol 2.5 MG/3 ML VIAL.NEB. INHALATION ×2 (07:23→12:59)
[2018-01-19] MEDS: clonazePAM 0.5 MG Tablet PO ×2 (08:11→20:59)
[2018-01-19] MEDS: Calcium Carb/Vitamin D 1 TABLET Tablet PO ×2 (08:11→17:06)
[2018-01-19] MEDS: Iron Polysaccharide Complex 150 MG CAPSULE PO (08:11)
[2018-01-19] MEDS: morphine (oral solution) 10MG/0.5ML Syringe 5 MG SL ×3 (08:12→23:51)
[2018-01-19] MEDS: Ceftriaxone 1 GM/50 ML BAG IV (12:36)
[2018-01-19 12:59] VITALS: PULSE 95; RESP 18; O2SAT 100
[2018-01-19 15:14] VITALS: BP 125/81; PULSE 101; RESP 18; TEMP 36.9; O2SAT 18
[2018-01-19 17:08] VITALS: BP 125/81; PULSE 101
[2018-01-19] MEDS: Mirtazapine 15 MG Tablet PO (21:00)
[2018-01-19] MEDS: Ondansetron ODT 4 MG Tablet PO (21:17)
[2018-01-20 06:19] VITALS: BP 141/82; PULSE 115
[2018-01-20] MEDS: Metoprolol Tartrate 25 MG Tablet PO ×2 (06:19→17:38)
[2018-01-20] MEDS: Famotidine 20 MG Tablet 40 MG PO (06:20)
[2018-01-20] MEDS: Senna/Docusate Sodium 1 Tablet 2 TABLET PO ×2 (06:20→17:39)
[2018-01-20] MEDS: dilTIAZem 60 MG Tablet PO ×4 (06:21→22:58)
[2018-01-20] MEDS: APIXABAN 2.5 MG TABLET PO ×2 (06:21→17:38)
[2018-01-20] MEDS: Levothyroxine 88 MCG Tablet PO (06:21)
[2018-01-20] MEDS: Clotrimazole/Betamethasone 1 Tube 1 APPLIC TOPICAL ×2 (06:22→17:40)
[2018-01-20] MEDS: Fluticasone 0.05% 1 SPRAY NASAL.SRY 2 SPRAY NASAL (06:23)
[2018-01-20] MEDS: 0.9% NaCl PICC Flush IV ×2 (06:24→10:39)
[2018-01-20] MEDS: Menthol/Lanolin/Calamine/Znox 113 GM Tube 1 APPLIC TOPICAL ×2 (06:27→20:37)
[2018-01-20] MEDS: Iron Polysaccharide Complex 150 MG CAPSULE PO (08:31)
[2018-01-20] MEDS: Calcium Carb/Vitamin D 1 TABLET Tablet PO ×2 (08:31→17:37)
[2018-01-20] MEDS: clonazePAM 0.5 MG Tablet PO ×2 (08:32→20:35)
[2018-01-20 10:29] LABS: Vancomycin, Trough Level 19.6 ug/mL (5.0-15.0)
[2018-01-20] MEDS: Ceftriaxone 1 GM/50 ML BAG IV (12:02)
[2018-01-20] MEDS: morphine (oral solution) 10MG/0.5ML Syringe 5 MG SL ×2 (12:02→17:48)
--- NOTE | 2018-01-20 13:00 | PCM.RX.CS ---
Consult Pharmacy has been consulted to manage selected antiobiotic: Vancomycin Type of Consult: Follow-up Suspected Infection: Other Prior Doses of Antibiotics Received/Current Regimen: Medications Vancomycin HCl 1,250 mg/ (Sodium Chloride) 275 mls @ 183.333 mls/hr IV Q24H OBINNA Stop: 01/29/18 11:29 Last Admin: 01/20/18 10:39 Dose: 183.333 mls/hr Labs: Sodium 144 mmol/L (136-145) 01/19/18 05:00 Potassium 4.2 mmol/L (3.5-5.1) 01/19/18 05:00 Chloride 104 mmol/L (98-107) 01/19/18 05:00 Carbon Dioxide 37.0 mmol/L (21.0-32.0) H 01/19/18 05:00 Anion Gap 3 (5-15) L 01/19/18 05:00 BUN 11 mg/dL (7-18) 01/19/18 05:00 Creatinine 0.81 mg/dL (0.55-1.02) 01/19/18 05:00 Est GFR (MDRD) Af Amer 88 mL/min (>60) 01/19/18 05:00 Est GFR (MDRD) Non-Af 73 mL/min (>60) 01/19/18 05:00 BUN/Creatinine Ratio 13.5 RATIO (10-20) 01/19/18 05:00 Glucose 80 mg/dL (74-106) 01/19/18 05:00 Vancomycin Trough 19.6 ug/mL (5.0-15.0) H 01/20/18 09:28 Random Vancomycin 11.5 ug/mL (0.0-15.0) 01/11/18 05:15 Microbiology: Microbiology 01/14/18 06:45 Stool C. difficile DNA Amplification - Final 01/10/18 13:30 Catheter Insertion Site Gram Stain - Final 01/10/18 13:30 Catheter Insertion Site Wound Culture - Final No growth aerobically. Weight used for dosin kg Goal Trough: 15-20 mcg/mL Pharmacy Plan for Drug Dosing: Vancomycin 22.5 hr trough still within goal range. Re-check next Tuesday, last check before d/c'ed Pharmacy Service will continue to monitor and adjust dosing as required. Follow-Up Labs: Trough Vancomycin - 01/27/18 @ 1000
[2018-01-20] MEDS: Budesonide Respules 0.5 MG/2 ML AMPUL.NEB. 0.25 MG INHALATION ×2 (14:40→19:45)
[2018-01-20 14:41] VITALS: PULSE 91; RESP 20
[2018-01-20] MEDS: Albuterol 2.5 MG/3 ML VIAL.NEB. INHALATION ×2 (14:41→19:45)
--- NOTE | 2018-01-20 15:19 | CASEMGMT ---
Brief interview for mental status (BIMS) and resident mood interview completed on this day. BIMS score 15/15. PHQ-9 score 02/05.
--- NOTE | 2018-01-20 15:20 | CASEMGMT ---
Social Work Following up with resident in room in regards to resident decision about transitioning home with home I.V. therapy or outpatient therapy. Resident reporting to have decided to continue with stay at this time. Support given. Will continue to follow. Marielena LONG, PROJECT RESERVOIR ENGINEER
[2018-01-20 15:39] VITALS: BP 106/68; PULSE 109; RESP 18; TEMP 36.4; O2SAT 98
[2018-01-20 17:38] VITALS: PULSE 104
[2018-01-20 19:45] VITALS: PULSE 82; RESP 16
[2018-01-20] MEDS: Mirtazapine 15 MG Tablet PO (22:58)
[2018-01-21] MEDS: Senna/Docusate Sodium 1 Tablet 2 TABLET PO ×2 (05:24→18:04)
[2018-01-21] MEDS: Famotidine 20 MG Tablet 40 MG PO (05:25)
[2018-01-21] MEDS: Levothyroxine 88 MCG Tablet PO (05:25)
[2018-01-21] MEDS: dilTIAZem 60 MG Tablet PO ×3 (05:26→18:03)
[2018-01-21] MEDS: APIXABAN 2.5 MG TABLET PO ×2 (05:26→18:08)
[2018-01-21] MEDS: Menthol/Lanolin/Calamine/Znox 113 GM Tube 1 APPLIC TOPICAL ×2 (05:26→21:12)
[2018-01-21 05:27] VITALS: BP 150/40; PULSE 106
[2018-01-21] MEDS: Fluticasone 0.05% 1 SPRAY NASAL.SRY 2 SPRAY NASAL (05:27)
[2018-01-21] MEDS: Metoprolol Tartrate 25 MG Tablet PO ×2 (05:27→18:04)
[2018-01-21] MEDS: Clotrimazole/Betamethasone 1 Tube 1 APPLIC TOPICAL (05:29)
[2018-01-21 07:42] VITALS: O2SAT 95
[2018-01-21] MEDS: clonazePAM 0.5 MG Tablet PO ×2 (08:06→21:01)
[2018-01-21] MEDS: Iron Polysaccharide Complex 150 MG CAPSULE PO (08:06)
[2018-01-21] MEDS: Calcium Carb/Vitamin D 1 TABLET Tablet PO ×2 (08:07→18:03)
[2018-01-21] MEDS: 0.9% NaCl PICC Flush IV ×2 (10:45→21:01)
[2018-01-21] MEDS: 0.9% NaCl IVPB Med Flush (250 mL) 15 ML IV (10:45)
[2018-01-21 10:47] VITALS: PULSE 81; RESP 17
[2018-01-21] MEDS: Budesonide Respules 0.5 MG/2 ML AMPUL.NEB. 0.25 MG INHALATION ×2 (10:47→19:40)
[2018-01-21] MEDS: Albuterol 2.5 MG/3 ML VIAL.NEB. INHALATION ×2 (10:47→19:40)
[2018-01-21] MEDS: morphine (oral solution) 10MG/0.5ML Syringe 5 MG SL ×2 (11:08→21:01)
[2018-01-21] MEDS: Ceftriaxone 1 GM/50 ML BAG IV (12:36)
--- NOTE | 2018-01-21 14:20 | NURSING ---
pt went home JOCY with
[2018-01-21 18:04] VITALS: BP 116/61; PULSE 99
[2018-01-21 18:14] VITALS: BP 116/61; PULSE 99; RESP 18; TEMP 36.9; O2SAT 99
[2018-01-21 19:40] VITALS: PULSE 82; RESP 20
[2018-01-21] MEDS: Mirtazapine 15 MG Tablet PO (21:01)
[2018-01-22] VITALS (7 sets, daily range): BP systolic 113–117; BP diastolic 52–76; PULSE 86–112; RESP 16–21; TEMP 36.8; O2SAT 99–100
[2018-01-22] MEDS: dilTIAZem 60 MG Tablet PO ×5 (00:55→23:41)
[2018-01-22] MEDS: Fluticasone 0.05% 1 SPRAY NASAL.SRY 2 SPRAY NASAL (06:29)
[2018-01-22] MEDS: Senna/Docusate Sodium 1 Tablet 2 TABLET PO ×2 (06:29→16:59)
[2018-01-22] MEDS: Famotidine 20 MG Tablet 40 MG PO (06:29)
[2018-01-22] MEDS: Levothyroxine 88 MCG Tablet PO (06:29)
[2018-01-22] MEDS: APIXABAN 2.5 MG TABLET PO ×2 (06:30→17:00)
[2018-01-22] MEDS: Metoprolol Tartrate 25 MG Tablet PO ×2 (06:30→17:00)
[2018-01-22] MEDS: Menthol/Lanolin/Calamine/Znox 113 GM Tube 1 APPLIC TOPICAL ×2 (06:31→20:47)
[2018-01-22] MEDS: Calcium Carb/Vitamin D 1 TABLET Tablet PO ×2 (08:31→17:00)
[2018-01-22] MEDS: clonazePAM 0.5 MG Tablet PO ×2 (08:31→20:38)
[2018-01-22] MEDS: Iron Polysaccharide Complex 150 MG CAPSULE PO (08:31)
[2018-01-22] MEDS: 0.9% NaCl PICC Flush IV ×3 (10:27→20:38)
[2018-01-22] MEDS: 0.9% NaCl IVPB Med Flush (250 mL) 15 ML IV (12:17)
[2018-01-22] MEDS: Ceftriaxone 1 GM/50 ML BAG IV (12:17)
[2018-01-22] MEDS: morphine (oral solution) 10MG/0.5ML Syringe 5 MG SL ×2 (12:28→20:38)
[2018-01-22] MEDS: Albuterol 2.5 MG/3 ML VIAL.NEB. INHALATION ×2 (12:57→19:55)
[2018-01-22] MEDS: Jevity 1.5. 1,000 ML Bottle 240 ML GT ×2 (13:34→17:52)
[2018-01-22] MEDS: Budesonide Respules 0.5 MG/2 ML AMPUL.NEB. 0.25 MG INHALATION (19:55)
[2018-01-22] MEDS: Mirtazapine 15 MG Tablet PO (20:37)
[2018-01-23] VITALS (7 sets, daily range): BP systolic 106–116; BP diastolic 63–68; PULSE 82–108; RESP 16–20; TEMP 36.3; O2SAT 97–99
[2018-01-23] MEDS: Fluticasone 0.05% 1 SPRAY NASAL.SRY 2 SPRAY NASAL (06:01)
[2018-01-23] MEDS: Famotidine 20 MG Tablet 40 MG PO (06:02)
[2018-01-23] MEDS: dilTIAZem 60 MG Tablet PO ×3 (06:02→17:58)
[2018-01-23] MEDS: Senna/Docusate Sodium 1 Tablet 2 TABLET PO ×2 (06:02→17:59)
[2018-01-23] MEDS: APIXABAN 2.5 MG TABLET PO ×2 (06:02→17:57)
[2018-01-23] MEDS: Metoprolol Tartrate 25 MG Tablet PO ×2 (06:02→17:58)
[2018-01-23] MEDS: Levothyroxine 88 MCG Tablet PO (06:03)
[2018-01-23] MEDS: Menthol/Lanolin/Calamine/Znox 113 GM Tube 1 APPLIC TOPICAL (06:05)
[2018-01-23] MEDS: Budesonide Respules 0.5 MG/2 ML AMPUL.NEB. 0.25 MG INHALATION ×2 (07:36→17:05)
[2018-01-23] MEDS: Albuterol 2.5 MG/3 ML VIAL.NEB. INHALATION ×3 (07:36→17:05)
[2018-01-23] MEDS: Calcium Carb/Vitamin D 1 TABLET Tablet PO ×2 (08:40→17:57)
[2018-01-23] MEDS: Iron Polysaccharide Complex 150 MG CAPSULE PO (08:40)
[2018-01-23] MEDS: clonazePAM 0.5 MG Tablet PO ×2 (08:40→20:55)
[2018-01-23] MEDS: 0.9% NaCl PICC Flush IV ×2 (09:21→20:55)
[2018-01-23] MEDS: 0.9% NaCl IVPB Med Flush (250 mL) 15 ML IV (09:21)
[2018-01-23] MEDS: morphine (oral solution) 10MG/0.5ML Syringe 5 MG SL ×2 (10:26→20:59)
[2018-01-23] MEDS: Ceftriaxone 1 GM/50 ML BAG IV (11:11)
[2018-01-23] MEDS: Jevity 1.5. 1,000 ML Bottle 240 ML GT (18:10)
[2018-01-23] MEDS: Mirtazapine 15 MG Tablet PO (21:01)
[2018-01-24] MEDS: dilTIAZem 60 MG Tablet PO ×5 (00:01→23:36)
[2018-01-24] MEDS: 0.9% NaCl PICC Flush IV (04:56)
[2018-01-24] MEDS: Fluticasone 0.05% 1 SPRAY NASAL.SRY 2 SPRAY NASAL (05:05)
[2018-01-24 05:06] VITALS: BP 119/58; PULSE 92
[2018-01-24] MEDS: APIXABAN 2.5 MG TABLET PO ×2 (05:06→17:19)
[2018-01-24] MEDS: Senna/Docusate Sodium 1 Tablet 2 TABLET PO ×2 (05:06→17:18)
[2018-01-24] MEDS: Levothyroxine 88 MCG Tablet PO (05:06)
[2018-01-24] MEDS: Famotidine 20 MG Tablet 40 MG PO (05:06)
[2018-01-24] MEDS: Metoprolol Tartrate 25 MG Tablet PO ×2 (05:06→17:18)
[2018-01-24 05:14] LABS: Absolute Lymphocyte Count 1.02 X10^3/ul (0.83-4.51); Absolute Neutrophil Count 3.3 X10^3/uL (2.0-7.7); Basophil# 0.02 X10^3/uL; Basophil% 0.4 % (0-1); Eosinophil# 0.23 X10^3/uL; Eosinophils% 4.4 % (0-5); Hematocrit 31.1 % (37-47); Hemoglobin 9.4 g/dl (12.0-15.0); Lymphocyte # 1.02 X10^3/ul (4.0); Lymphocyte % 19.4 % (19-41); Mean Corp Hgb Conc 30.2 g/gl (32-36); Mean Corpuscular Hgb 26.2 pg (27.0-32.0); Mean Corpuscular Volume 86.6 fL (81-99); Mean Platelet Vol. 10.8 fl (6.2-12.0); Monocyte# 0.62 X10^3/uL; Monocyte% 11.8 % (0-10); Neutrophil # 3.34 X10^3/uL (2.7-7.7); Neutrophil % 63.6 % (47-70); Platelet Count 156 K/mm3 (150-450); RBC Distribution Width CV 15.8 % (11.6-14.6); RBC Distribution Width SD 49.1 fl (35.1-43.9); Red Blood Count 3.59 M/mm3 (4.2-5.4); White Blood Count 5.3 K/mm3 (4.4-11.0)
[2018-01-24 05:25] LABS: POSITIVE COUNT NO; POSITIVE DIFFERENTIAL NO; POSITIVE MORPHOLOGY NO
[2018-01-24 05:50] LABS: Anion Gap 5 (5-15); BUN 11 mg/dL (7-18); BUN/Creat Ratio 13.9 RATIO (10-20); Calcium,Total 8.6 mg/dL (8.5-10.1); Chloride 103 mmol/L (98-107); Creatinine, Serum 0.79 mg/dL (0.55-1.02); EST Glomerular Filtration Rate 76 mL/min (>60); Est Glom Filt Rate - Afr Amer 92 mL/min (>60); Estimated Creatinine Clearance 34.64 ml/min; Glucose 79 mg/dL (74-106); Potassium 4.3 mmol/L (3.5-5.1); Sodium Level 143 mmol/L (136-145)
[2018-01-24 07:56] VITALS: PULSE 87; RESP 16; O2SAT 99
[2018-01-24] MEDS: Budesonide Respules 0.5 MG/2 ML AMPUL.NEB. 0.25 MG INHALATION ×2 (07:56→18:35)
[2018-01-24] MEDS: Albuterol 2.5 MG/3 ML VIAL.NEB. INHALATION ×3 (07:56→18:35)
[2018-01-24] MEDS: morphine (oral solution) 10MG/0.5ML Syringe 5 MG SL ×2 (09:01→16:25)
[2018-01-24] MEDS: Calcium Carb/Vitamin D 1 TABLET Tablet PO ×2 (09:04→17:19)
[2018-01-24] MEDS: Iron Polysaccharide Complex 150 MG CAPSULE PO (09:04)
[2018-01-24] MEDS: clonazePAM 0.5 MG Tablet PO ×2 (09:07→20:53)
[2018-01-24] MEDS: Ceftriaxone 1 GM/50 ML BAG IV (12:31)
[2018-01-24 13:13] VITALS: PULSE 88; RESP 18; O2SAT 99
[2018-01-24 15:39] VITALS: BP 115/70; PULSE 88; RESP 18; TEMP 36.8; O2SAT 97
--- NOTE | 2018-01-24 16:16 | CASEMGMT ---
Social Work Spoke with resident in room. Resident planning to discharge home on 01/30/18 as resident I.V. stop date is 01/29/18 and therapy is agreeable to discharge date as well. Resident plans to discharge home with spouse at time of discharge. Therapy recommending for resident to have outpatient sleep therapy at time of discharge, resident is agreeable to recommendation. Resident family aware of discharge as well. Support given. Proposed discharge date: 01/30/18 PLAN: Discharge home with spouse and outpatient speech therapy. Marielena LONG, SCAFFOLDER
[2018-01-24 17:18] VITALS: BP 115/70; PULSE 88
[2018-01-24 18:35] VITALS: PULSE 80; RESP 18
[2018-01-24] MEDS: Mirtazapine 15 MG Tablet PO (20:54)
--- NOTE | 2018-01-24 22:04 | PCM.DC ---
- Discharge Diagnoses Current Active Problems: Current Active and Chronic Problems (Last Updated 12/14/17 @ 17:06 by Guillermina Vincent DO) Shortness of breath (Acute) Thrush (Acute) You will use the following diet at home:: No restrictions, Regular Your food should be the consistency of: Regular Your liquids should be the consistency of: Regular/Thin Discharge Activity: Return to Normal Activity, May Shower, Use Walker Weight Bearing Status: Weight bearing as tolerated Call your doctor if you observe: Fever of 101 or Higher, Inability to urinate, Inability to have a bowel movement, Shortness of breath, Chest pain, Uncontrolled pain Allergies/Adverse Reactions: Allergies sulfamethoxazole [From Bactrim] Allergy (Verified 12/26/17 11:28) Hives PT STATES NOT ALLERGIC tetracycline Allergy (Verified 12/26/17 11:28) Hives trimethoprim [From Bactrim] Allergy (Verified 12/26/17 11:28) Hives verapamil Allergy (Verified 12/26/17 11:28) Unknown itraconazole Adverse Reaction (Verified 12/26/17 11:28) chest tightness w/ upper and loewr extremity weakness warfarin [From Coumadin] Adverse Reaction (Verified 12/26/17 11:28) gi bleed SODIUM PENTATHOL Allergy (Uncoded 12/26/17 11:28) jaundice/hives JAUNDICE Medications to take at Discharge Cholecalciferol (Vitamin D3) [Vitamin D3] 2,000 unit PO DAILY 10/30/16 Formoterol Fumarate [Perforomist] 20 mcg INHALATION BID 04/18/17 fluticasone 50 mcg/actuation nasal spray,suspension 2 spray INTRANASAL DAILY #16 g 11/28/17 Methadone HCl 5 mg PO BID 12/06/17 Calcium Carb/Vitamin D [Os-Zach 500MG + D] 1 tablet PO BIDCM 12/26/17 Guaifenesin [Robitussin] 10 ml GT Q4H PRN PRN udc 01/02/18 Levothyroxine [Synthroid] 88 mcg GT DAILY@0600 tablet 01/02/18 Albuterol Inhaler [Ventolin Hfa] 1 - 2 puff INHALATION Q2H PRN PRN #1 inhaler 01/24/18 Apixaban [Eliquis] 2.5 mg PO BID #60 tab 01/24/18 Budesonide [Pulmicort] 0.25 mg IH BID #60 ampul.neb 01/24/18 Clonazepam [Klonopin] 0.5 mg PO Q12H #60 tablet 01/24/18 Clotrimazole/Betamethasone [Lotrisone] 1 applic TOPICAL BID PRN #1 tube 01/24/18 Diltiazem [Cardizem] 60 mg PO Q6 #120 tab 01/24/18 Famotidine [Pepcid] 40 mg PO DAILY #30 tab 01/24/18 Iron Polysaccharide Complex [Ferrex 150] 150 mg PO DAILYCM #30 cap 01/24/18 Jevity 1.5 240 ml GT 0800,1200,1800 #90 bottle 01/24/18 Lactobacillus Acidophilus [Acidophilus] 1 tab PO BID #60 tab 01/24/18 Lidocaine 2% Viscous [Xylocaine Viscous] 5 ml PO Q4H PRN PRN #100 udc 01/24/18 Metoprolol Tartrate [Lopressor (beta cirilo)] 25 mg PO BID #60 tab 01/24/18 Mirtazapine [Remeron] 15 mg PO QHS #30 tab 01/24/18 Polyethylene Glycol 3350 [Miralax] 17 gm PO DAILY #30 packet 01/24/18 Potassium Chloride [K-Dur] 20 meq PO BIDCM #60 tab 01/24/18 Senna/Docusate Sodium [Senokot-S] 2 tab PO BID #120 tab 01/24/18 morphine solution (IR) [Roxanol (IR oral solution)] 5 mg SL Q4H PRN #11 ml 01/24/18 The following prescriptions were given: Albuterol Inhaler [Ventolin Hfa] 1 - 2 puff INHALATION Q2H PRN PRN #1 inhaler PRN Reason: Sob &/Or Wheezing Lidocaine 2% Viscous [Xylocaine Viscous] 5 ml PO Q4H PRN PRN #100 udc PRN Reason: Pain Clonazepam [Klonopin] 0.5 mg PO Q12H #60 tablet Diltiazem [Cardizem] 60 mg PO Q6 #120 tab Famotidine [Pepcid] 40 mg PO DAILY #30 tab Iron Polysaccharide Complex [Ferrex 150] 150 mg PO DAILYCM #30 cap Jevity 1.5 240 ml GT 0800,1200,1800 #90 bottle Mirtazapine [Remeron] 15 mg PO QHS #30 tab morphine solution (IR) [Roxanol (IR oral solution)] 5 mg SL Q4H PRN #11 ml PRN Reason: Pain Polyethylene Glycol 3350 [Miralax] 17 gm PO DAILY #30 packet Apixaban [Eliquis] 2.5 mg PO BID #60 tab Budesonide [Pulmicort] 0.25 mg IH BID #60 ampul.neb Clotrimazole/Betamethasone [Lotrisone] 1 applic TOPICAL BID PRN #1 tube PRN Reason: RASH/TOPICAL IRRITATION Lactobacillus Acidophilus [Acidophilus] 1 tab PO BID #60 tab Metoprolol Tartrate [Lopressor (beta cirilo)] 25 mg PO BID #60 tab Potassium Chloride [K-Dur] 20 meq PO BIDCM #60 tab Senna/Docusate Sodium [Senokot-S] 2 tab PO BID #120 tab Primary Care Physician: Christo Wilde MD [Primary Care Provider] - Please follow up with your Primary Care Physician in: 1 week. Please Follow Up With: Dr Yadira Vera When: follow up if needed after dc Please Follow Up With: Dr Boateng When: 2 weeks. Please Follow Up With: Dr Wilde Proposed Discharge Date: 01/30/18
--- NOTE | 2018-01-24 22:06 | PCM.DC.SUM ---
Discharge Date and Diagnosis - Problem List Patient Problems: Active and Suspected Problems (Last Updated 12/14/17 @ 17:06 by Guillermina Vincent DO) Shortness of breath (Acute) Thrush (Acute) Date of Admission: 01/02/18 Date of Discharge: 01/30/18 - Primary Discharge Diagnosis Active and Suspected Problems (Last Updated 12/14/17 @ 17:06 by Guillermina Vincent DO) Shortness of breath (Acute) Thrush (Acute) - Secondary Discharge Diagnosis Chronic Problems (Last Updated 12/14/17 @ 17:06 by Guillermina Vincent DO) Thrush, oral (Chronic) Community acquired pneumonia due to Klebsiella pneumoniae (Chronic) Hyperkalemia (Chronic) Hyponatremia (Chronic) Severe malnutrition (Chronic) Atrial fibrillation with RVR (Chronic) Acute and chronic respiratory failure with hypoxia (Chronic) 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) Chronic respiratory failure with hypoxia (Chronic) NEPTALI (obstructive sleep apnea) (Chronic) PND (paroxysmal nocturnal dyspnea) (Chronic) Bronchiectasis (Chronic) Pulmonary hypertension (Chronic) Takotsubo cardiomyopathy (Chronic) EF in August of 2016 was 45-50%, previously 20% Chronic atrial fibrillation (Chronic) Hypomagnesemia (Chronic) Recheck magnesium in 48 hours Hospital Course and Treatment Imaging Results: 01/11/18 10:17 Diet: Regular Diet Food consistency:: Mechanical Soft/Ground Liquid Consistency:: [place] Thick Dietary Modifications:: Mechanical Soft Diet [place] Thick Liquids Is pt able to select menu?: No Diet Comments: Supervised meals (distaint), frequent oral care Clinical Impression(s) from Imaging Studies Videofluoroscopic Swallow 01/10/18 13:00 IMPRESSION: Supraglottic penetration during thin and thick liquid swallows improved with chin tuck maneuvers. Stasis in the vallecula and piriform sinuses cleared with subsequent dry swallows. The swallow study findings were discussed with the patient by the speech pathologist at the conclusion of the examination. Please see speech pathology report for more information and recommendations. The procedure was performed by speech pathologist under the direct supervision of myself Electronically Signed: Doug Mobley MD at 15:00 EDT Tel , Service support , Chest X-Ray 01/11/18 13:50 IMPRESSION: Stable changes in the right hemithorax with chronic obstructive pulmonary disease with scarring and bullous changes. The right-sided PICC line is seen in place with catheter extending to the SVC. There is a new PICC line on the left side its tip is at the lower part of the SVC is in good position. Electronically Signed: Doug Mobley MD at 14:55 EDT Tel , Service support , Abdomen X-Ray 01/13/18 18:40 IMPRESSION: Increased stool and probable pulmonary fibrosis Electronically Signed: Ramone Barton MD at 19:09 EDT , Service support , Labs (Last 48 Hours) 01/24/18 01/24/18 05:00 05:00 WBC 5.3 RBC 3.59 L Hgb 9.4 L Hct 31.1 L MCV 86.6 MCH 26.2 L MCHC 30.2 L RDW 15.8 H RDW Differential 49.1 H Plt Count 156 MPV 10.8 Immature Gran % (Auto) 0.400 Neut % (Auto) 63.6 Lymph % (Auto) 19.4 Anson % (Auto) 11.8 H Eos % (Auto) 4.4 Baso % (Auto) 0.4 Absolute Neuts (auto) 3.3 Absolute Lymphs (auto) 1.02 Total Counted Not Reportable Sodium 143 Potassium 4.3 Chloride 103 Carbon Dioxide 35.0 H Anion Gap 5 BUN 11 Creatinine 0.79 Estim Creat Clear Calc 34.64 Est GFR (MDRD) Af Amer 92 Est GFR (MDRD) Non-Af 76 BUN/Creatinine Ratio 13.9 Glucose 79 Calcium 8.6 Operations: None Procedures: None Summary of Care Provided: The patient is a 72 year old Female with below past medical history hospitalized for dysphagia requiring PEG tube, secondary to severe sinusitis from MRSA, K. Pneumoniae, admitted to TCU with debility here for rehabilitation, strengthening, advancement of diet with speech therapy, intravenous antibiotics, prior to discharge home with spouse. Discharge home with spouse, and outpatient speech therapy. Consider referral to 180 for opioid dependence. Discharge Diet: No Restrictions Discharge Activity: Return to Normal Activity, May Shower, Use Walker Weight Bearing Status: Weight bearing as tolerated Call your doctor if you observe: Fever of 101 or Higher, Inability to urinate, Inability to have a bowel movement, Shortness of breath, Chest pain, Uncontrolled pain Home Medications: Medications to take at Discharge Cholecalciferol (Vitamin D3) [Vitamin D3] 2,000 unit PO DAILY 10/30/16 Formoterol Fumarate [Perforomist] 20 mcg INHALATION BID 04/18/17 fluticasone 50 mcg/actuation nasal spray,suspension 2 spray INTRANASAL DAILY #16 g 11/28/17 Methadone HCl 5 mg PO BID 12/06/17 Calcium Carb/Vitamin D [Os-Zach 500MG + D] 1 tablet PO BIDCM 12/26/17 Guaifenesin [Robitussin] 10 ml GT Q4H PRN PRN udc 01/02/18 Levothyroxine [Synthroid] 88 mcg GT DAILY@0600 tablet 01/02/18 Albuterol Inhaler [Ventolin Hfa] 1 - 2 puff INHALATION Q2H PRN PRN #1 inhaler 01/24/18 Apixaban [Eliquis] 2.5 mg PO BID #60 tab 01/24/18 Budesonide [Pulmicort] 0.25 mg IH BID #60 ampul.neb 01/24/18 Clonazepam [Klonopin] 0.5 mg PO Q12H #60 tablet 01/24/18 Clotrimazole/Betamethasone [Lotrisone] 1 applic TOPICAL BID PRN #1 tube 01/24/18 Diltiazem [Cardizem] 60 mg PO Q6 #120 tab 01/24/18 Famotidine [Pepcid] 40 mg PO DAILY #30 tab 01/24/18 Iron Polysaccharide Complex [Ferrex 150] 150 mg PO DAILYCM #30 cap 01/24/18 Jevity 1.5 240 ml GT 0800,1200,1800 #90 bottle 01/24/18 Lactobacillus Acidophilus [Acidophilus] 1 tab PO BID #60 tab 01/24/18 Lidocaine 2% Viscous [Xylocaine Viscous] 5 ml PO Q4H PRN PRN #100 udc 01/24/18 Metoprolol Tartrate [Lopressor (beta cirilo)] 25 mg PO BID #60 tab 01/24/18 Mirtazapine [Remeron] 15 mg PO QHS #30 tab 01/24/18 Polyethylene Glycol 3350 [Miralax] 17 gm PO DAILY #30 packet 01/24/18 Potassium Chloride [K-Dur] 20 meq PO BIDCM #60 tab 01/24/18 Senna/Docusate Sodium [Senokot-S] 2 tab PO BID #120 tab 01/24/18 morphine solution (IR) [Roxanol (IR oral solution)] 5 mg SL Q4H PRN #11 ml 01/24/18 Following Prescrptions Were Given to Patient: Albuterol Inhaler [Ventolin Hfa] 1 - 2 puff INHALATION Q2H PRN PRN #1 inhaler PRN Reason: Sob &/Or Wheezing Lidocaine 2% Viscous [Xylocaine Viscous] 5 ml PO Q4H PRN PRN #100 udc PRN Reason: Pain Clonazepam [Klonopin] 0.5 mg PO Q12H #60 tablet Diltiazem [Cardizem] 60 mg PO Q6 #120 tab Famotidine [Pepcid] 40 mg PO DAILY #30 tab Iron Polysaccharide Complex [Ferrex 150] 150 mg PO DAILYCM #30 cap Jevity 1.5 240 ml GT 0800,1200,1800 #90 bottle Mirtazapine [Remeron] 15 mg PO QHS #30 tab morphine solution (IR) [Roxanol (IR oral solution)] 5 mg SL Q4H PRN #11 ml PRN Reason: Pain Polyethylene Glycol 3350 [Miralax] 17 gm PO DAILY #30 packet Apixaban [Eliquis] 2.5 mg PO BID #60 tab Budesonide [Pulmicort] 0.25 mg IH BID #60 ampul.neb Clotrimazole/Betamethasone [Lotrisone] 1 applic TOPICAL BID PRN #1 tube PRN Reason: RASH/TOPICAL IRRITATION Lactobacillus Acidophilus [Acidophilus] 1 tab PO BID #60 tab Metoprolol Tartrate [Lopressor (beta cirilo)] 25 mg PO BID #60 tab Potassium Chloride [K-Dur] 20 meq PO BIDCM #60 tab Senna/Docusate Sodium [Senokot-S] 2 tab PO BID #120 tab Primary Care Physician: Christo Wilde MD [Primary Care Provider] - Please follow up with your Primary Care Physician in: 1 week. Please Follow Up With: Dr Yadira Vera When: follow up if needed after dc Please Follow Up With: Dr Boateng When: 2 weeks. Please Follow Up With: Dr Wilde Disposition: Home Minutes spent on discharge:: 35 Patient Condition:: Poor Medical Necessity - Tobacco Use Smoking Status: Never smoker Tobacco Use: Non-smoker Meaningful Use Info Meaningful Use Diagnoses (Choose all that apply): None applicable
--- NOTE | 2018-01-24 22:09 | DS.PCM_ITS ---
Discharge Date and Diagnosis - Problem List Patient Problems: Active and Suspected Problems (Last Updated 12/14/17 @ 17:06 by Guillermina Vincent DO) Shortness of breath (Acute) Thrush (Acute) Date of Admission: 01/02/18 Date of Discharge: 01/30/18 - Primary Discharge Diagnosis Active and Suspected Problems (Last Updated 12/14/17 @ 17:06 by Guillermina Vincent DO) Shortness of breath (Acute) Thrush (Acute) - Secondary Discharge Diagnosis Chronic Problems (Last Updated 12/14/17 @ 17:06 by Guillermina Vincent DO) Thrush, oral (Chronic) Community acquired pneumonia due to Klebsiella pneumoniae (Chronic) Hyperkalemia (Chronic) Hyponatremia (Chronic) Severe malnutrition (Chronic) Atrial fibrillation with RVR (Chronic) Acute and chronic respiratory failure with hypoxia (Chronic) 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) Chronic respiratory failure with hypoxia (Chronic) NEPTALI (obstructive sleep apnea) (Chronic) PND (paroxysmal nocturnal dyspnea) (Chronic) Bronchiectasis (Chronic) Pulmonary hypertension (Chronic) Takotsubo cardiomyopathy (Chronic) EF in August of 2016 was 45-50%, previously 20% Chronic atrial fibrillation (Chronic) Hypomagnesemia (Chronic) Recheck magnesium in 48 hours Hospital Course and Treatment Imaging Results: 01/11/18 10:17 Diet: Regular Diet Food consistency:: Mechanical Soft/Ground Liquid Consistency:: [place] Thick Dietary Modifications:: Mechanical Soft Diet [place] Thick Liquids Is pt able to select menu?: No Diet Comments: Supervised meals (distaint), frequent oral care Clinical Impression(s) from Imaging Studies Videofluoroscopic Swallow 01/10/18 13:00 IMPRESSION: Supraglottic penetration during thin and thick liquid swallows improved with chin tuck maneuvers. Stasis in the vallecula and piriform sinuses cleared with subsequent dry swallows. The swallow study findings were discussed with the patient by the speech pathologist at the conclusion of the examination. Please see speech pathology report for more information and recommendations. The procedure was performed by speech pathologist under the direct supervision of myself Electronically Signed: Doug Mobley MD at 15:00 EDT Tel , Service support , Chest X-Ray 01/11/18 13:50 IMPRESSION: Stable changes in the right hemithorax with chronic obstructive pulmonary disease with scarring and bullous changes. The right-sided PICC line is seen in place with catheter extending to the SVC. There is a new PICC line on the left side its tip is at the lower part of the SVC is in good position. Electronically Signed: Doug Mobley MD at 14:55 EDT Tel , Service support , Abdomen X-Ray 01/13/18 18:40 IMPRESSION: Increased stool and probable pulmonary fibrosis Electronically Signed: Ramone Barton MD at 19:09 EDT , Service support , Labs (Last 48 Hours) 01/24/18 01/24/18 05:00 05:00 WBC 5.3 RBC 3.59 L Hgb 9.4 L Hct 31.1 L MCV 86.6 MCH 26.2 L MCHC 30.2 L RDW 15.8 H RDW Differential 49.1 H Plt Count 156 MPV 10.8 Immature Gran % (Auto) 0.400 Neut % (Auto) 63.6 Lymph % (Auto) 19.4 Dawson % (Auto) 11.8 H Eos % (Auto) 4.4 Baso % (Auto) 0.4 Absolute Neuts (auto) 3.3 Absolute Lymphs (auto) 1.02 Total Counted Not Reportable Sodium 143 Potassium 4.3 Chloride 103 Carbon Dioxide 35.0 H Anion Gap 5 BUN 11 Creatinine 0.79 Estim Creat Clear Calc 34.64 Est GFR (MDRD) Af Amer 92 Est GFR (MDRD) Non-Af 76 BUN/Creatinine Ratio 13.9 Glucose 79 Calcium 8.6 Operations: None Procedures: None Summary of Care Provided: The patient is a 72 year old Female with below past medical history hospitalized for dysphagia requiring PEG tube, secondary to severe sinusitis from MRSA, K. Pneumoniae, admitted to TCU with debility here for rehabilitation , strengthening, advancement of diet with speech therapy, intravenous antibiotics, prior to discharge home with spouse. Discharge home with spouse, and outpatient speech therapy. Consider referral to 180 for opioid dependence. Discharge Diet: No Restrictions Discharge Activity: Return to Normal Activity, May Shower, Use Walker Weight Bearing Status: Weight bearing as tolerated Call your doctor if you observe: Fever of 101 or Higher, Inability to urinate, Inability to have a bowel movement, Shortness of breath, Chest pain, Uncontrolled pain Home Medications: Medications to take at Discharge Cholecalciferol (Vitamin D3) [Vitamin D3] 2,000 unit PO DAILY 10/30/16 Formoterol Fumarate [Perforomist] 20 mcg INHALATION BID 04/18/17 fluticasone 50 mcg/actuation nasal spray,suspension 2 spray INTRANASAL DAILY # 16 g 11/28/17 Methadone HCl 5 mg PO BID 12/06/17 Calcium Carb/Vitamin D [Os-Zach 500MG + D] 1 tablet PO BIDCM 12/26/17 Guaifenesin [Robitussin] 10 ml GT Q4H PRN PRN udc 01/02/18 Levothyroxine [Synthroid] 88 mcg GT DAILY@0600 tablet 01/02/18 Albuterol Inhaler [Ventolin Hfa] 1 - 2 puff INHALATION Q2H PRN PRN #1 inhaler Apixaban [Eliquis] 2.5 mg PO BID #60 tab 01/24/18 Budesonide [Pulmicort] 0.25 mg IH BID #60 ampul.neb 01/24/18 Clonazepam [Klonopin] 0.5 mg PO Q12H #60 tablet 01/24/18 Clotrimazole/Betamethasone [Lotrisone] 1 applic TOPICAL BID PRN #1 tube Diltiazem [Cardizem] 60 mg PO Q6 #120 tab 01/24/18 Famotidine [Pepcid] 40 mg PO DAILY #30 tab 01/24/18 Iron Polysaccharide Complex [Ferrex 150] 150 mg PO DAILYCM #30 cap 01/24/18 Jevity 1.5 240 ml GT 0800,1200,1800 #90 bottle 01/24/18 Lactobacillus Acidophilus [Acidophilus] 1 tab PO BID #60 tab 01/24/18 Lidocaine 2% Viscous [Xylocaine Viscous] 5 ml PO Q4H PRN PRN #100 udc 01/24/18 Metoprolol Tartrate [Lopressor (beta cirilo)] 25 mg PO BID #60 tab 01/24/18 Mirtazapine [Remeron] 15 mg PO QHS #30 tab 01/24/18 Polyethylene Glycol 3350 [Miralax] 17 gm PO DAILY #30 packet 01/24/18 Potassium Chloride [K-Dur] 20 meq PO BIDCM #60 tab 01/24/18 Senna/Docusate Sodium [Senokot-S] 2 tab PO BID #120 tab 01/24/18 morphine solution (IR) [Roxanol (IR oral solution)] 5 mg SL Q4H PRN #11 ml 01/24 Following Prescrptions Were Given to Patient: Albuterol Inhaler [Ventolin Hfa] 1 - 2 puff INHALATION Q2H PRN PRN #1 inhaler PRN Reason: Sob &/Or Wheezing Lidocaine 2% Viscous [Xylocaine Viscous] 5 ml PO Q4H PRN PRN #100 udc PRN Reason: Pain Clonazepam [Klonopin] 0.5 mg PO Q12H #60 tablet Diltiazem [Cardizem] 60 mg PO Q6 #120 tab Famotidine [Pepcid] 40 mg PO DAILY #30 tab Iron Polysaccharide Complex [Ferrex 150] 150 mg PO DAILYCM #30 cap Jevity 1.5 240 ml GT 0800,1200,1800 #90 bottle Mirtazapine [Remeron] 15 mg PO QHS #30 tab morphine solution (IR) [Roxanol (IR oral solution)] 5 mg SL Q4H PRN #11 ml PRN Reason: Pain Polyethylene Glycol 3350 [Miralax] 17 gm PO DAILY #30 packet Apixaban [Eliquis] 2.5 mg PO BID #60 tab Budesonide [Pulmicort] 0.25 mg IH BID #60 ampul.neb Clotrimazole/Betamethasone [Lotrisone] 1 applic TOPICAL BID PRN #1 tube PRN Reason: RASH/TOPICAL IRRITATION Lactobacillus Acidophilus [Acidophilus] 1 tab PO BID #60 tab Metoprolol Tartrate [Lopressor (beta cirilo)] 25 mg PO BID #60 tab Potassium Chloride [K-Dur] 20 meq PO BIDCM #60 tab Senna/Docusate Sodium [Senokot-S] 2 tab PO BID #120 tab Primary Care Physician: Christo Wilde MD [Primary Care Provider] - Please follow up with your Primary Care Physician in: 1 week. Please Follow Up With: Dr Yadira Vera When: follow up if needed after dc Please Follow Up With: Dr Boateng When: 2 weeks. Please Follow Up With: Dr Wilde Disposition: Home Minutes spent on discharge:: 35 Patient Condition:: Poor Medical Necessity - Tobacco Use Smoking Status: Never smoker Tobacco Use: Non-smoker Meaningful Use Info Meaningful Use Diagnoses (Choose all that apply): None applicable
[2018-01-25] MEDS: Senna/Docusate Sodium 1 Tablet 2 TABLET PO ×2 (06:23→17:05)
[2018-01-25] MEDS: dilTIAZem 60 MG Tablet PO ×3 (06:23→17:05)
[2018-01-25 06:24] VITALS: BP 131/53; PULSE 96
[2018-01-25] MEDS: APIXABAN 2.5 MG TABLET PO ×2 (06:24→17:05)
[2018-01-25] MEDS: Metoprolol Tartrate 25 MG Tablet PO ×2 (06:24→17:05)
[2018-01-25] MEDS: Famotidine 20 MG Tablet 40 MG PO (06:24)
[2018-01-25] MEDS: Levothyroxine 88 MCG Tablet PO (06:25)
[2018-01-25] MEDS: Fluticasone 0.05% 1 SPRAY NASAL.SRY 2 SPRAY NASAL (06:26)
[2018-01-25] MEDS: 0.9% NaCl PICC Flush IV ×2 (06:27→10:16)
[2018-01-25 08:04] VITALS: O2SAT 95
[2018-01-25] MEDS: clonazePAM 0.5 MG Tablet PO ×2 (08:24→20:20)
[2018-01-25] MEDS: Calcium Carb/Vitamin D 1 TABLET Tablet PO ×2 (08:26→17:05)
[2018-01-25] MEDS: Iron Polysaccharide Complex 150 MG CAPSULE PO (08:26)
--- NOTE | 2018-01-25 08:27 | RAD_ITS ---
STUDY: X-RAY CHEST REASON FOR EXAM: Female, 72 years old. Short of breath TECHNIQUE: Single frontal view of the chest. COMPARISON: 04/18/2017, 01/11/2018.. FINDINGS: Left PICC line terminates in the upper SVC. Stable severe fibrotic changes on the right with volume loss and severe bullous disease in the upper right hemithorax. Stable hyperexpansion of the left lung with fibrosis. There is moderate cardiac enlargement. Normal mediastinum and lindsey. Normal visualized pulmonary arteries. Normal visualized aortic arch and descending thoracic aorta. Normal visualized thoracic spine. Normal visualized ribs, clavicles, and shoulders. There is no demonstrated abnormality of the visualized soft tissue structures of the upper abdomen. RAD/Chest PA and Lateral IMPRESSION: Stable severe scarring changes on the right and overall COPD with fibrosis. Electronically Signed: Sen Alfonso MD at 9:14 EDT , Service support ,
--- NOTE | 2018-01-25 08:34 | NURSING ---
pt c/o SOB with cough, sputum vega colored thick. I just don't feel right Dr Valverde updated, new order for chest xray and CT facial/sinuses r/o sinusitis. pt aware of both.
[2018-01-25] MEDS: Jevity 1.5. 1,000 ML Bottle 240 ML GT ×3 (09:00→17:54)
--- NOTE | 2018-01-25 09:00 | NURSING ---
DEMONSTRATED JEVITY BOLUS AND FLUSH WITH PT. PT VERBALIZED UNDERSTANDING. WILL CONTINUE WITH TEACHING, WILL LET PT DEMONSTRATE BACK WITH NEXT BOLUS FEED.
[2018-01-25] MEDS: 0.9% NaCl IVPB Med Flush (250 mL) 15 ML IV ×2 (10:16→12:05)
[2018-01-25 11:50] LABS: Bedside Glucose 140 mg/dL (70-110)
[2018-01-25] MEDS: morphine (oral solution) 10MG/0.5ML Syringe 5 MG SL ×2 (12:02→20:20)
[2018-01-25] MEDS: Ceftriaxone 1 GM/50 ML BAG IV (12:05)
--- NOTE | 2018-01-25 12:31 | NURSING ---
DR GUPTA UPDATED ON CT AND CXR RESULTS. NO NEW ORDERS.
[2018-01-25] MEDS: Budesonide Respules 0.5 MG/2 ML AMPUL.NEB. 0.25 MG INHALATION (12:51)
[2018-01-25] MEDS: Albuterol 2.5 MG/3 ML VIAL.NEB. INHALATION (12:51)
[2018-01-25 12:52] VITALS: PULSE 84; RESP 21
[2018-01-25 15:14] VITALS: BP 116/61; PULSE 86; RESP 18; TEMP 37.3; O2SAT 100
[2018-01-25 17:05] VITALS: PULSE 88
[2018-01-25] MEDS: Mirtazapine 15 MG Tablet PO (20:20)
[2018-01-26] MEDS: dilTIAZem 60 MG Tablet PO ×4 (00:05→18:21)
[2018-01-26 06:31] VITALS: BP 117/75; PULSE 111
[2018-01-26] MEDS: Fluticasone 0.05% 1 SPRAY NASAL.SRY 2 SPRAY NASAL (06:31)
[2018-01-26] MEDS: Metoprolol Tartrate 25 MG Tablet PO ×2 (06:31→18:21)
[2018-01-26] MEDS: Senna/Docusate Sodium 1 Tablet 2 TABLET PO ×2 (06:32→18:20)
[2018-01-26] MEDS: Levothyroxine 88 MCG Tablet PO (06:32)
[2018-01-26] MEDS: Famotidine 20 MG Tablet 40 MG PO (06:32)
[2018-01-26] MEDS: APIXABAN 2.5 MG TABLET PO ×2 (06:33→18:21)
[2018-01-26 08:01] VITALS: O2SAT 98
[2018-01-26] MEDS: Calcium Carb/Vitamin D 1 TABLET Tablet PO ×2 (08:05→18:21)
[2018-01-26] MEDS: Iron Polysaccharide Complex 150 MG CAPSULE PO (08:05)
[2018-01-26] MEDS: clonazePAM 0.5 MG Tablet PO ×2 (08:06→18:27)
[2018-01-26] MEDS: Jevity 1.5. 1,000 ML Bottle 240 ML GT (09:02)
--- NOTE | 2018-01-26 09:12 | NURSING ---
starting calorie counts on pt d/t poor po intake. pt resting in recliner chair, ate bowl of cream of wheat, one bite of scrambled eggs and 240cc of fluids. jevity boluses 240cc given, pt administered with assist of this nurse. pt resting in recliner chair.
[2018-01-26] MEDS: morphine (oral solution) 10MG/0.5ML Syringe 5 MG SL (09:46)
[2018-01-26] MEDS: 0.9% NaCl PICC Flush IV ×2 (10:43→12:50)
[2018-01-26] MEDS: Ceftriaxone 1 GM/50 ML BAG IV (12:50)
[2018-01-26 14:26] VITALS: PULSE 81; RESP 19
[2018-01-26] MEDS: Albuterol 2.5 MG/3 ML VIAL.NEB. INHALATION ×2 (14:29→19:45)
[2018-01-26] MEDS: Budesonide Respules 0.5 MG/2 ML AMPUL.NEB. 0.25 MG INHALATION ×2 (14:29→19:45)
[2018-01-26 16:00] VITALS: BP 109/68; PULSE 95; RESP 18; TEMP 36.4; O2SAT 99
[2018-01-26 18:21] VITALS: PULSE 81
[2018-01-26 19:45] VITALS: PULSE 103; RESP 18; O2SAT 99
[2018-01-26] MEDS: Mirtazapine 15 MG Tablet PO (20:39)
[2018-01-27] MEDS: dilTIAZem 60 MG Tablet PO ×5 (00:45→23:19)
[2018-01-27] MEDS: Fluticasone 0.05% 1 SPRAY NASAL.SRY 2 SPRAY NASAL (06:52)
[2018-01-27 06:53] VITALS: PULSE 81
[2018-01-27] MEDS: Famotidine 20 MG Tablet 40 MG PO (06:53)
[2018-01-27] MEDS: APIXABAN 2.5 MG TABLET PO ×2 (06:53→18:33)
[2018-01-27] MEDS: Senna/Docusate Sodium 1 Tablet 2 TABLET PO (06:53)
[2018-01-27] MEDS: Metoprolol Tartrate 25 MG Tablet PO ×2 (06:53→18:34)
[2018-01-27] MEDS: Levothyroxine 88 MCG Tablet PO (06:53)
[2018-01-27] MEDS: Calcium Carb/Vitamin D 1 TABLET Tablet PO ×2 (09:53→18:32)
[2018-01-27] MEDS: Iron Polysaccharide Complex 150 MG CAPSULE PO (09:53)
[2018-01-27] MEDS: clonazePAM 0.5 MG Tablet PO ×2 (09:53→21:36)
[2018-01-27 10:13] LABS: Vancomycin, Trough Level 21.6 ug/mL (5.0-15.0)
--- NOTE | 2018-01-27 12:13 | PCM.RX.CS ---
Consult Pharmacy has been consulted to manage selected antiobiotic: Vancomycin Type of Consult: Follow-up Suspected Infection: Skin/Soft tissue Labs: Sodium 143 mmol/L (136-145) 01/24/18 05:00 Potassium 4.3 mmol/L (3.5-5.1) 01/24/18 05:00 Chloride 103 mmol/L (98-107) 01/24/18 05:00 Carbon Dioxide 35.0 mmol/L (21.0-32.0) H 01/24/18 05:00 Anion Gap 5 (5-15) 01/24/18 05:00 BUN 11 mg/dL (7-18) 01/24/18 05:00 Creatinine 0.79 mg/dL (0.55-1.02) 01/24/18 05:00 Est GFR (MDRD) Af Amer 92 mL/min (>60) 01/24/18 05:00 Est GFR (MDRD) Non-Af 76 mL/min (>60) 01/24/18 05:00 BUN/Creatinine Ratio 13.9 RATIO (10-20) 01/24/18 05:00 Glucose 79 mg/dL (74-106) 01/24/18 05:00 Vancomycin Trough 21.6 ug/mL (5.0-15.0) H 01/27/18 09:20 Random Vancomycin 11.5 ug/mL (0.0-15.0) 01/11/18 05:15 Microbiology: Microbiology 01/14/18 06:45 Stool C. difficile DNA Amplification - Final 01/10/18 13:30 Catheter Insertion Site Gram Stain - Final 01/10/18 13:30 Catheter Insertion Site Wound Culture - Final No growth aerobically. Weight used for dosin kg Estimated Creatinine Clearance: 35 mL/min Goal Trough: Other Pharmacy Plan for Drug Dosing: Discussed trough level with Dr Landa. Will leave as ordered per Dr Landa for remainder of therapy thru 01/29. No more labs. Pharmacy Service will continue to monitor and adjust dosing as required.
--- NOTE | 2018-01-27 12:14 | CASEMGMT ---
Social Work Spoke with resident and resident family in room. Resident requesting for Jevity 1.5 to be ordered as resident has been supplementing oral intake with Jevity 1.5. Resident also requesting for outpatient speech therapy to be set up through [facility]. Resident aware that [facility] will contact resident to set up appointment after order has been sent. Resident reporting to have all needed durable medical equipment already set up within the home. Resident family to provide transportation home for resident at time of discharge. Support given. Order [facility]. Liz reporting that Jevity will not be covered by resident insurance as resident is on an oral diet, even if intake is poor. Liz reporting that self pay is $2.50 a can and $60 a case. Spoke with resident in regards to cost and information about insurance coverage. Resident voicing understanding and planning to private pay for Jevity. Order faxed to [facility]. Resident planning to contact [facility] to complete payment and then Jevity will be sent to resident private home. Support given. Proposed discharge date: 01/30/18 PLAN: Discharge home with spouse and outpatient speech therapy. Marielena LONG, FRAME STRAIGHTENER
[2018-01-27 12:31] VITALS: O2SAT 94
[2018-01-27 12:40] VITALS: BP 124/73; PULSE 99; RESP 20; TEMP 36.9; O2SAT 94
[2018-01-27] MEDS: Ceftriaxone 1 GM/50 ML BAG IV (12:50)
[2018-01-27 13:10] VITALS: PULSE 84; RESP 16; O2SAT 98
[2018-01-27] MEDS: Budesonide Respules 0.5 MG/2 ML AMPUL.NEB. 0.25 MG INHALATION (13:10)
[2018-01-27] MEDS: Albuterol 2.5 MG/3 ML VIAL.NEB. INHALATION (13:10)
--- NOTE | 2018-01-27 14:58 | CASEMGMT ---
Brief interview for mental status (BIMS) and resident mood interview (PHQ-9) completed on this day. BIMS score 15. PHQ-9 score 10/08
--- NOTE | 2018-01-27 15:16 | NURSING ---
Patient requesting an order for PRN tylenol, Dr. Valverde made aware, NO for ES tylenol 1000mg PO [id number] PRN.
[2018-01-27 16:00] VITALS: BP 117/74; PULSE 96; RESP 18; TEMP 36.7; O2SAT 100
[2018-01-27] MEDS: Acetaminophen 500 MG Tablet 1000 MG PO (18:31)
[2018-01-27 18:34] VITALS: BP 117/74; PULSE 96
--- NOTE | 2018-01-27 18:54 | RAD_ITS ---
STUDY: X-RAY - ABDOMEN/PELVIS REASON FOR EXAM: Female, 72 years old. Nausea. TECHNIQUE: Single AP view of the abdomen / pelvis. COMPARISON: 01/13/18. FINDINGS: Stable appearance to the left midabdomen, grossly within the stomach. There is an unremarkable bowel gas pattern. There is no demonstrated free abdominal air. The visualized liver, spleen and kidneys are grossly normal in size and morphology. Normal soft tissue structures. There are diffuse degenerative changes of the visualized lumbar spine. RAD/Abdomen Single View IMPRESSION: No acute abnormality seen. Electronically Signed: Sen Alfonso MD at 19:38 EDT , Service support ,
--- NOTE | 2018-01-27 18:55 | NURSING ---
Patient has c/o general malaise, decreased appetite and lethargy. LSCTA, diminished, afebrile, BP 117/74, 96 irregular, temp 98.8. Dr. Valverde made aware, NO for cbc with diff, bmp, straight cath UA C&S, cxr, kub and respiratory panel. Patient made aware.
--- NOTE | 2018-01-27 19:20 | RAD_ITS ---
STUDY: X-RAY CHEST REASON FOR EXAM: Female, 72 years old. Nausea. TECHNIQUE: Frontal and lateral views of the chest. COMPARISON: 01/25/2018. FINDINGS: Markedly abnormal stable appearance of the chest. Stable left PICC line terminating in the mid SVC. Stable volume loss of the right lung with bullous disease in the upper right chest. Scarring, or atelectasis in the lower right chest, stable. Hyperexpansion of the left lung. Diffuse fibrosis. Mild to moderate cardiomegaly. Bones and soft tissues show no gross acute abnormalities. RAD/Chest PA and Lateral IMPRESSION: No acute abnormalities since 01/25/2018. Electronically Signed: Sen Alfonso MD at 19:40 EDT , Service support ,
[2018-01-27] MEDS: 0.9% NaCl PICC Flush IV ×3 (20:24→22:12)
[2018-01-27 20:45] LABS: Absolute Lymphocyte Count 1.35 X10^3/ul (0.83-4.51); Absolute Neutrophil Count 6.4 X10^3/uL (2.0-7.7); Basophil# 0.02 X10^3/uL; Basophil% 0.2 % (0-1); Eosinophils% 4.5 % (0-5); Hematocrit 33.7 % (37-47); Hemoglobin 10.4 g/dl (12.0-15.0); Lymphocyte # 1.35 X10^3/ul (4.0); Mean Corp Hgb Conc 30.9 g/gl (32-36); Mean Corpuscular Hgb 25.8 pg (27.0-32.0); Mean Corpuscular Volume 83.6 fL (81-99); Mean Platelet Vol. 10.7 fl (6.2-12.0); Monocyte# 0.83 X10^3/uL; Monocyte% 9.2 % (0-10); Neutrophil # 6.36 X10^3/uL (2.7-7.7); Neutrophil % 70.9 % (47-70); Platelet Count 171 K/mm3 (150-450); RBC Distribution Width CV 15.9 % (11.6-14.6); RBC Distribution Width SD 48.9 fl (35.1-43.9); Red Blood Count 4.03 M/mm3 (4.2-5.4)
[2018-01-27 20:46] LABS: POSITIVE COUNT NO; POSITIVE DIFFERENTIAL NO; POSITIVE MORPHOLOGY NO
[2018-01-27 20:50] LABS: Anion Gap 4 (5-15); BUN 15 mg/dL (7-18); BUN/Creat Ratio 15.9 RATIO (10-20); Calcium,Total 9.3 mg/dL (8.5-10.1); Chloride 103 mmol/L (98-107); Creatinine, Serum 0.94 mg/dL (0.55-1.02); EST Glomerular Filtration Rate 62 mL/min (>60); Est Glom Filt Rate - Afr Amer 75 mL/min (>60); Estimated Creatinine Clearance 36.47 ml/min; Glucose 90 mg/dL (74-106); Potassium 4.6 mmol/L (3.5-5.1); Sodium Level 141 mmol/L (136-145)
[2018-01-27] MEDS: Mirtazapine 15 MG Tablet PO (21:35)
[2018-01-27] MEDS: morphine (oral solution) 10MG/0.5ML Syringe 5 MG SL (23:18)
--- NOTE | 2018-01-27 23:56 | NURSING ---
Dr Valverde reviewed labs and xray. NNO
[2018-01-28 04:59] VITALS: PULSE 90
[2018-01-28] MEDS: Metoprolol Tartrate 25 MG Tablet PO ×2 (04:59→17:36)
[2018-01-28] MEDS: APIXABAN 2.5 MG TABLET PO ×2 (04:59→17:36)
[2018-01-28] MEDS: dilTIAZem 60 MG Tablet PO ×3 (04:59→17:36)
[2018-01-28] MEDS: Levothyroxine 88 MCG Tablet PO (05:00)
[2018-01-28] MEDS: Senna/Docusate Sodium 1 Tablet 2 TABLET PO ×2 (05:00→17:36)
[2018-01-28] MEDS: Famotidine 20 MG Tablet 40 MG PO (05:00)
[2018-01-28] MEDS: Fluticasone 0.05% 1 SPRAY NASAL.SRY 2 SPRAY NASAL (05:02)
[2018-01-28 05:37] LABS: Mucous, Urine 0 SEEN /hpf (<or=2+); Red Blood Cells-Urine 0 SEEN /hpf (0-5)
[2018-01-28 05:45] LABS: Color, Urine Yellow (Yellow); Glucose, Dipstick Normal (Normal); Ketone-Dipstick Negative (Negative); Leukocyte Esterase-Dipstick Negative /ul (Negative); Nitrite-Dipstick Negative (Negative); Occult Blood-Urine Negative /ul (Negative); Protein-Dipstick Negative (Negative); Urine Bilirubin Dipstick Negative (Negative); Urine Clarity Clear (Clear); Urine Urobilinogen Normal (Normal)
[2018-01-28 05:51] LABS: Squamous Epithelial Cells - UA 0-5 SEEN /hpf (5-10); White Blood Cells 0-5 SEEN /hpf (0-5)
[2018-01-28 05:52] LABS: Bacteria RARE /hpf (None Seen)
[2018-01-28] MEDS: Budesonide Respules 0.5 MG/2 ML AMPUL.NEB. 0.25 MG INHALATION ×2 (07:24→18:33)
[2018-01-28] MEDS: Albuterol 2.5 MG/3 ML VIAL.NEB. INHALATION ×2 (07:24→18:33)
[2018-01-28 07:25] VITALS: PULSE 89; RESP 16; O2SAT 100
[2018-01-28] MEDS: Calcium Carb/Vitamin D 1 TABLET Tablet PO ×2 (09:04→17:36)
[2018-01-28] MEDS: Iron Polysaccharide Complex 150 MG CAPSULE PO (09:05)
[2018-01-28] MEDS: clonazePAM 0.5 MG Tablet PO ×2 (09:05→20:46)
[2018-01-28] MEDS: morphine (oral solution) 10MG/0.5ML Syringe 5 MG SL ×2 (09:11→22:01)
[2018-01-28] MEDS: Ceftriaxone 1 GM/50 ML BAG IV (11:40)
[2018-01-28 15:55] VITALS: BP 104/57; PULSE 78; RESP 18; TEMP 36.9; O2SAT 100
[2018-01-28] MEDS: Alteplase 2 MG/2 ML Vial IV (15:57)
[2018-01-28] MEDS: 0.9% NaCl PICC Flush IV (16:21)
[2018-01-28] MEDS: Petrolatum,White 5 GM PACKET 1 APPLIC TOPICAL (17:26)
--- NOTE | 2018-01-28 17:27 | NURSING ---
Dr. Valverde aware of wt loss, N.N.O.
[2018-01-28 17:36] VITALS: PULSE 89
--- NOTE | 2018-01-28 18:15 | NURSING ---
This nurse was unable to flush PICC line today, Dr. Valverde updated and N.O. for Cathflo Activase. This nurse tried to use the Cathflo with the rooming house operator and was unable to get it in the PICC line. PICC line discontinued d/t complications, tip of PICC line intact, erythema noted to post site, cleansed and covered with DSD. Pt remained supine for 30 minutes after PICC was discontinued. Will continue to monitor.
[2018-01-28 18:35] VITALS: PULSE 85; RESP 16
[2018-01-28] MEDS: Mirtazapine 15 MG Tablet PO (20:47)
[2018-01-28] MEDS: Acetaminophen 500 MG Tablet 1000 MG PO (20:50)
[2018-01-29] MEDS: dilTIAZem 60 MG Tablet PO ×5 (00:07→23:58)
[2018-01-29] MEDS: Senna/Docusate Sodium 1 Tablet 2 TABLET PO ×2 (06:31→16:30)
[2018-01-29] MEDS: APIXABAN 2.5 MG TABLET PO ×2 (06:31→16:29)
[2018-01-29] MEDS: Famotidine 20 MG Tablet 40 MG PO (06:31)
[2018-01-29 06:32] VITALS: BP 138/58; PULSE 107
[2018-01-29] MEDS: Metoprolol Tartrate 25 MG Tablet PO ×2 (06:32→16:29)
[2018-01-29] MEDS: Levothyroxine 88 MCG Tablet PO (06:32)
[2018-01-29] MEDS: Fluticasone 0.05% 1 SPRAY NASAL.SRY 2 SPRAY NASAL (06:33)
[2018-01-29] MEDS: Albuterol 2.5 MG/3 ML VIAL.NEB. INHALATION ×3 (07:43→19:09)
[2018-01-29] MEDS: Budesonide Respules 0.5 MG/2 ML AMPUL.NEB. 0.25 MG INHALATION ×2 (07:43→19:09)
[2018-01-29 08:17] VITALS: PULSE 96; RESP 18; O2SAT 100
[2018-01-29] MEDS: morphine (oral solution) 10MG/0.5ML Syringe 5 MG SL (08:47)
[2018-01-29] MEDS: Calcium Carb/Vitamin D 1 TABLET Tablet PO ×2 (08:47→16:28)
[2018-01-29] MEDS: Iron Polysaccharide Complex 150 MG CAPSULE PO (08:47)
[2018-01-29] MEDS: clonazePAM 0.5 MG Tablet PO ×2 (08:48→20:49)
[2018-01-29] MEDS: Ceftriaxone 1 GM/50 ML BAG IV (11:18)
[2018-01-29 15:14] VITALS: BP 122/57; PULSE 108; RESP 18; TEMP 36.8; O2SAT 98
[2018-01-29 16:29] VITALS: PULSE 94
[2018-01-29 19:10] VITALS: PULSE 84; RESP 18
[2018-01-29] MEDS: Mirtazapine 15 MG Tablet PO (20:50)
[2018-01-30] MEDS: Fluticasone 0.05% 1 SPRAY NASAL.SRY 2 SPRAY NASAL (06:40)
[2018-01-30] MEDS: Senna/Docusate Sodium 1 Tablet 2 TABLET PO (06:40)
[2018-01-30] MEDS: Famotidine 20 MG Tablet 40 MG PO (06:40)
[2018-01-30 06:41] VITALS: BP 122/63; PULSE 107
[2018-01-30] MEDS: Levothyroxine 88 MCG Tablet PO (06:41)
[2018-01-30] MEDS: APIXABAN 2.5 MG TABLET PO (06:41)
[2018-01-30] MEDS: dilTIAZem 60 MG Tablet PO ×2 (06:41→11:09)
[2018-01-30] MEDS: Metoprolol Tartrate 25 MG Tablet PO (06:41)
[2018-01-30 06:43] VITALS: PULSE 107; O2SAT 100
[2018-01-30 07:38] VITALS: PULSE 80; RESP 18; O2SAT 99
[2018-01-30] MEDS: Albuterol 2.5 MG/3 ML VIAL.NEB. INHALATION (07:38)
[2018-01-30] MEDS: Budesonide Respules 0.5 MG/2 ML AMPUL.NEB. 0.25 MG INHALATION (07:38)
[2018-01-30] MEDS: Calcium Carb/Vitamin D 1 TABLET Tablet PO (07:58)
[2018-01-30] MEDS: Iron Polysaccharide Complex 150 MG CAPSULE PO (07:58)
[2018-01-30] MEDS: clonazePAM 0.5 MG Tablet PO (08:00)
--- NOTE | 2018-01-30 10:43 | MDS.RN ---
Information for the mds was obtained from review of the clinical record, interview of resident, staff, and direct observation of resident's care.
[2018-01-30] MEDS: morphine (oral solution) 10MG/0.5ML Syringe 5 MG SL (11:13)
[2018-01-30 11:29] VITALS: BP 115/61; PULSE 99; RESP 18; TEMP 37; O2SAT 100
[2018-01-30 11:33] VITALS: BP 115/61; PULSE 99; RESP 18; TEMP 37; O2SAT 100
--- NOTE | 2018-02-20 07:50 | MDS.RN ---
MDS DC assessment due by 02/13/18 was completed on 02/16/18 due to hospital computers down housewide.
== END 2018-01-30 12:30 | disposition home or self-care (01) | DRG 947 ==
PROVIDERS: Internal Medicine Infectious Disease; Admitting Provider Family Medicine Geriatric Medicine; Family Provider Family Medicine; PCP Family Medicine; Visit Provider Family Medicine Geriatric Medicine
DX: R53.81 Other malaise (principal); E43 Unspecified severe protein-calorie malnutrition; J96.21 Acute and chronic respiratory failure with hypoxia; Z68.1 Body mass index [BMI] 19.9 or less, adult; B37.0 Candidal stomatitis; F41.9 Anxiety disorder, unspecified; E03.9 Hypothyroidism, unspecified; R13.10 Dysphagia, unspecified; K21.9 Gastro-esophageal reflux disease without esophagitis; E55.9 Vitamin D deficiency, unspecified; B95.62 Methicillin resistant Staphylococcus aureus infection as the cause of diseases classified elsewhere; J01.90 Acute sinusitis, unspecified; B96.1 Klebsiella pneumoniae [K. pneumoniae] as the cause of diseases classified elsewhere; G47.33 Obstructive sleep apnea (adult) (pediatric); J44.9 Chronic obstructive pulmonary disease, unspecified; I48.2 Chronic atrial fibrillation; Z93.1 Gastrostomy status; I27.20 Pulmonary hypertension, unspecified; Z79.899 Other long term (current) drug therapy
CPT/HCPCS: 36415; 36569; 71045; 71046; 74018; 74019; 74230; 80048; 80202; 81001; 82962; 85025; 86703; 87070; 87086; 87205; 87493; 87633; 92507; 92526; 92610; 94640; 97110; 97116; 97162; 97166; 97530; 97535; 97802; 97803; J2997; J7050; A4216

== ENCOUNTER → 2018-01-25 08:41 | Outpatient (CLI) | payer MEDICARE, OTHER, SELFPAY ==
--- NOTE | 2018-01-25 08:47 | CT_ITS ---
STUDY: CT MAXILLOFACIAL SINUSES REASON FOR EXAM: Female, 72 years old. Sinusitis. RADIATION DOSAGE (If Supplied By Facility): CTDIvol = ( 29.38 ) mGy, DLP = ( 400.54 ) mGycm TECHNIQUE: The patient was scanned in a multi detector CT scanner. High resolution axial imaging was performed without the administration of intravenous contrast material. Sagittal and coronal images were reconstructed. Individualized dose optimization techniques were used for this CT. COMPARISON: 12/27/2017. FINDINGS: FRONTAL SINUSES: Normal aeration, without mucosal inflammatory disease. This is markedly improved since previous exam. ETHMOIDAL SINUSES: Normal aeration, without mucosal inflammatory disease. MAXILLARY SINUSES: There appears to have been right medial antrectomy which is widely patent. The right maxillary sinus is now essentially clear. On the left there is mild mucosal thickening and small air-fluid level consistent with combination of mild Sinusitis and acute sinusitis. The left ostiomeatal complex is patent. SPHENOIDAL SINUSES: Normal aeration, without mucosal inflammatory disease. Nasal septum deviates to the left as seen previously. The visualized osseous structures are normal. The visualized bilateral orbital contents are normal. CT/Sinus/Facial Bone IMPRESSION: Markedly improved sinusitis since previous study. Mild mucosal thickening and air-fluid level remaining in the left maxillary sinus. Electronically Signed: Sne Alfonso MD at 11:43 EDT , Service support ,
== END ==
PROVIDERS: Family Provider Family Medicine; PCP Family Medicine; Visit Provider Family Medicine Geriatric Medicine
DX: J32.9 Chronic sinusitis, unspecified (principal)
CPT/HCPCS: 70486

== ENCOUNTER 2018-02-07 09:43 | Inpatient (IN) | payer MEDICARE, OTHER, SELFPAY ==
[2018-02-07] VITALS (33 sets, daily range): BP systolic 102–145; BP diastolic 53–89; PULSE 52–137; RESP 14–24; TEMP 35.9–36.9; O2SAT 94–100; BMI 16.9; BMI 15.5
--- NOTE | 2018-02-07 10:16 | EKG12_ITS ---
Test Reason : WEAKNESS Blood Pressure : / mmHG Vent. Rate : 121 BPM Atrial Rate : 049 BPM P-R Int : 000 ms QRS Dur : 094 ms QT Int : 340 ms P-R-T Axes : 000 234 066 degrees QTc Int : 482 ms Atrial fibrillation with premature ventricular or aberrantly conducted complexes Abnormal ECG Confirmed by KAISER MALLOY ([id number]), fashion editor CRISTIAN CAMARA ([id number]) on 02/20/2018 5:09:37 PM Referred By: SHERIF Confirmed By:KAISER MALLOY
[2018-02-07 10:29] LABS: Absolute Lymphocyte Count 0.87 X10^3/ul (0.83-4.51); Absolute Neutrophil Count 8.9 X10^3/uL (2.0-7.7); Basophil# 0.02 X10^3/uL; Basophil% 0.2 % (0-1); Eosinophil# 0.07 X10^3/uL; Eosinophils% 0.7 % (0-5); Hematocrit 37.5 % (37-47); Hemoglobin 11.6 g/dl (12.0-15.0); Lymphocyte # 0.87 X10^3/ul (4.0); Lymphocyte % 8.5 % (19-41); Mean Corp Hgb Conc 30.9 g/gl (32-36); Mean Corpuscular Hgb 26.7 pg (27.0-32.0); Mean Corpuscular Volume 86.2 fL (81-99); Mean Platelet Vol. 11.2 fl (6.2-12.0); Monocyte# 0.41 X10^3/uL; Neutrophil # 8.88 X10^3/uL (2.7-7.7); Neutrophil % 86.4 % (47-70); Platelet Count 210 K/mm3 (150-450); RBC Distribution Width CV 16.1 % (11.6-14.6); RBC Distribution Width SD 49.7 fl (35.1-43.9); Red Blood Count 4.35 M/mm3 (4.2-5.4); White Blood Count 10.3 K/mm3 (4.4-11.0)
[2018-02-07 10:30] LABS: POSITIVE COUNT NO; POSITIVE DIFFERENTIAL NO; POSITIVE MORPHOLOGY NO
--- NOTE | 2018-02-07 10:37 | RAD_ITS ---
STUDY: X-RAY CHEST REASON FOR EXAM: Female, 72 years old. Weakness and shortness of breath. TECHNIQUE: Single AP portable view of the chest. COMPARISON: Comparison is made with prior study dated January 27, 2018. FINDINGS: EKG electrodes are seen. The previously seen left PICC line catheter has been removed. Stable appearance of the bullous changes in the right upper lobe with increased markings in the right midlung and lower lung suggestive of scarring. There is hyperinflation of the left lung with scattered calcified granuloma. Blunting of the right costophrenic angle. There is moderate cardiac enlargement. Normal mediastinum and lindsey. Normal visualized pulmonary arteries. There is atherosclerotic tortuosity of the aortic arch and descending thoracic aorta. Normal visualized thoracic spine. Normal visualized ribs, clavicles, and shoulders. There is no demonstrated abnormality of the visualized soft tissue structures of the upper abdomen. RAD/Chest 1 View (Portable) IMPRESSION: Stable bullous changes in the right upper lobe with volume loss and scarring in the right lung. There is hyperinflation of the left lung. Electronically Signed: Tanner Romo MD at 11:07 EDT Tel [phone], Service support ,
[2018-02-07 10:44] LABS: Anion Gap 11 (5-15); BUN 15 mg/dL (7-18); Calcium,Total 9.5 mg/dL (8.5-10.1); Chloride 97 mmol/L (98-107); Creatinine, Serum 0.62 mg/dL (0.55-1.02); EST Glomerular Filtration Rate 99 mL/min (>60); Est Glom Filt Rate - Afr Amer 120 mL/min (>60); Estimated Creatinine Clearance 37.01 ml/min; Glucose 60 mg/dL (74-106); Magnesium 2.1 mg/dL (1.6-2.6); Potassium 4.5 mmol/L (3.5-5.1); Sodium Level 140 mmol/L (136-145)
[2018-02-07] MEDS: dilTIAZem 25 MG/5 ML Vial 10 MG IV BOLUS ×2 (10:57→12:12)
--- NOTE | 2018-02-07 11:02 | ED.DCSUM_ITS ---
- ER Visit Summary Date of Service: 02/07/18 Chief Complaint: Generalized weakness and fatigue History of Present Illness: The patient is a 72 F presenting with generalized weakness and fatigue. She has had decreased appetite. She was discharged from hospital January 30, 2018 after admission for shortness of breath and thrush. She has a feeding tube in place. She states she has been able to swallow but has had decreased appetite and has supplemental feeds through her feeding tube. She has chronic shortness of breath. She denies chest pain. Denies other complaints. Physical Examination: Vitals are stable. HR 133. Patient is afebrile. Alert no acute distress. HEENT exam dry mucous membranes Neck is supple. Lungs are clear and equal bilaterally. Heart is irregularly irregular Abdomen is soft nontender nondistended. Extremities are unremarkable. Skin is warm and dry. No focal neurologic deficit. Remainder of exam is unremarkable. Emergency Department Course and Treatment: EKG is A. fib with RVR rate of 121. She is given Cardizem IV with improvement of her heart rate to 105. CBC shows a hemoglobin 11.6. Chemistries show glucose 60. Urinalysis unremarkable. Troponin is negative. Mag and phosphorus are normal. Chest x-ray shows chronic changes. Patient's family feel she is too weak to go home. She is not eating and they feel that she will continue to worsen. Will discuss with the hospitalist for observation. Disposition: Observation Impression: Generalized weakness, A. fib with RVR This note was generated with Revelation dictation software. It may contain incorrect words, spelling, and punctuation that were not noted in review of the chart prior to signing ED Disposition - Plan for ED Patient: Chief Complaint: Weakness Referrals: Christo Wilde MD [Primary Care Provider] -
[2018-02-07 11:11] LABS: Phosphorus 2.7 mg/dL (2.5-4.9)
[2018-02-07 11:12] LABS: Mucous, Urine 0 SEEN /hpf (<or=2+); Squamous Epithelial Cells - UA 0 SEEN /hpf (5-10)
[2018-02-07 11:16] LABS: Color, Urine Yellow (Yellow); Glucose, Dipstick Normal (Normal); Ketone-Dipstick 5 mg/dl (Negative); Leukocyte Esterase-Dipstick Negative /ul (Negative); Nitrite-Dipstick Negative (Negative); Occult Blood-Urine 10 /ul (Negative); Protein-Dipstick 15 mg/dl (Negative); Urine Bilirubin Dipstick Negative (Negative); Urine Clarity Clear (Clear); Urine Urobilinogen Normal (Normal)
[2018-02-07 11:24] LABS: Red Blood Cells-Urine 0-5 SEEN /hpf (0-5); White Blood Cells 0-5 SEEN /hpf (0-5)
[2018-02-07 11:25] LABS: Bacteria RARE /hpf (None Seen)
--- NOTE | 2018-02-07 12:02 | ECHOD_ITS ---
Reason For Study: PALPITATIONS Procedure This was a 2D Doppler, Color Flow transthoracic echocardiogram. The exam was of fair technical quality due to diminished acoustic windows. The study was technically difficult. Exam performed portable in patient room. Left Ventricle Normal LV size. Left ventricular systolic function is normal. The estimated ejection fraction is 65 %. Unable to assess diastolic dysfunction. No regional wall motion abnormalities noted. Right Ventricle Normal RV size. Normal systolic function. Atria Normal left atrium. Normal right atrium. No doppler evidence for ASD. Mitral Valve There is no mitral annular calcification. Mild diffuse mitral valve thickening. The mitral papillary muscle appears thickened and/or calcified. Trivial mitral valve insufficiency. Tricuspid Valve Normal tricuspid valve. Moderate (2+) eccentric tricuspid valve insufficiency. Right ventricular systolic pressure estimated to be 41 mmHg. Aortic Valve Trisinus/trileaflet aortic valve. Mild diffuse aortic valve thickening. Pulmonic Valve The pulmonic valve is not well visualized. Great Vessels Normal sized aortic root. Pericardium/Pleural No pericardial effusion. MMode/2D Measurements & Calculations LVIDd: 4.0 cm IVSd: 0.83 cm Ao root diam: 2.6 cm LVIDs: 2.9 cm LVPWd: 0.85 cm LA dimension: 3.2 cm RVDd: 2.6 cm FS: 28.3 % LAV(MOD-bp): 30.2 ml LA A4 area: 12.2 cm2 RA A4 area: 16.4 cm2 LAV(MOD-bp) Indexed: 20.5 ml/m2 LAV(MOD-sp2): 36.0 ml LAV(MOD-sp4): 24.6 ml Doppler Measurements & Calculations Ao V2 max: 166.3 cm/sec LV V1 max: 89.6 cm/sec TR max wander: 287.3 cm/sec Ao max P.2 mmHg LV V1 max P.2 mmHg TR max P.1 mmHg Interpretation Summary The study was technically difficult. Left ventricular systolic function is normal. The estimated ejection fraction is 65 %. Mild diffuse mitral valve thickening. The mitral papillary muscle appears thickened and/or calcified. Trivial mitral valve insufficiency. Moderate (2+) eccentric tricuspid valve insufficiency. Mild diffuse aortic valve thickening. Right ventricular systolic pressure estimated to be 41 mmHg. Unable to assess diastolic dysfunction. Ordering Physician: Francisca Sifuentes Referring Physician: HERNESTO CHATTERJEE Performed By: Lovely Min, RDCS, RVT
[2018-02-07 12:37] LABS: Thyroid Stim Hormone (TSH) 1.04 uIU/mL (0.358-3.74)
[2018-02-07 13:33] LABS: D-Dimer Quantitative (DVT/PE) 0.96 FEU/ug/m (0.27-0.49)
--- NOTE | 2018-02-07 13:39 | CT_ITS ---
STUDY: CTA CHEST REASON FOR EXAM: Female, 72 years old. Shortness of breath. Assess for pulmonary embolus. RADIATION DOSAGE (If Supplied By Facility): CTDIvol = ( 4.18 ) mGy, DLP = ( 162.84 ) mGycm TECHNIQUE: The examination was performed with the intravenous administration of 75ml ml of Isovue 370 contrast material. Post-processing of the angiographic images was performed, with multiplanar reformation and 3D reconstruction. Individualized dose optimization techniques were used for this CT. COMPARISON: October 10, 2017 FINDINGS: There is right-sided volume loss. There is stable airspace within the upper right hemithorax. There is stable bronchiectasis throughout the right lung. There are stable foci of atelectasis and/or scarring throughout the right lung. There is stable less pronounced stable bronchiectasis within the left lung and subpleural opacities within the upper and midlung. There is stable air trapping. Normal enhancement of the main pulmonary artery and right and left pulmonary arteries. Normal enhancement of the bilateral peripheral pulmonary arteries. There is no demonstrated pulmonary embolism. There is atherosclerotic calcification of the aortic arch and descending aorta. There is no demonstrated aortic dissection. There are calcifications of the coronary arteries. There is cardiomegaly present with extensive dilatation of the right atrium. There is a stable low-attenuation focus adjacent to the right atrium that may reflect underlying pericardial cyst. Normal mediastinum. Normal hilar regions. Normal visualized trachea and bronchi. Normal chest wall structures. There are degenerative changes of thoracic spine. The limited images of the upper abdomen demonstrate splenic calcifications. CT/CTA Chest W/WO Contrast IMPRESSION: No pulmonary embolus identified. Stable examination demonstrating no acute cardiopulmonary process. Stable bronchiectasis, more pronounced on the right. Atherosclerosis. Cardiomegaly. Stable atelectasis and/or scarring. Cardiomegaly. Electronically Signed: Ashley Streeter MD at 17:23 EDT Tel , Service support ,
--- NOTE | 2018-02-07 13:40 | PCM.HP.STD ---
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 fib, chronic pulmonary hypertension. She was recently discharged from the hospital after hospitalization for frequent dysphagia from oropharyngeal candidiasis and PEG tube placement. Protein calorie malnutrition who presented to the emergency room with generalized weakness and fatigue. She did to have atrial fibrillation with rapid ventricular response, she was started on IV Cardizem drip with improved ventricular rate. she denies any chest pain, purulent cough, fever, chills or palpitations. 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) Chronic respiratory failure with hypoxia (Chronic) NEPTALI (obstructive sleep apnea) (Chronic) PND (paroxysmal nocturnal dyspnea) (Chronic) Bronchiectasis (Chronic) Pulmonary hypertension (Chronic) Takotsubo cardiomyopathy (Chronic) EF in August of 2016 was 45-50%, previously 20% Chronic atrial fibrillation (Chronic) Hypomagnesemia (Chronic) Recheck magnesium in 48 hours Allergies sulfamethoxazole [From Bactrim] Allergy (Verified 02/07/18 09:49) Hives PT STATES NOT ALLERGIC tetracycline Allergy (Verified 02/07/18 09:49) Hives trimethoprim [From Bactrim] Allergy (Verified 02/07/18 09:49) Hives verapamil Allergy (Verified 02/07/18 09:49) Unknown itraconazole Adverse Reaction (Verified 02/07/18 09:49) chest tightness w/ upper and loewr extremity weakness warfarin [From Coumadin] Adverse Reaction (Verified 02/07/18 09:49) gi bleed SODIUM PENTATHOL Allergy (Uncoded 02/07/18 09:49) jaundice/hives JAUNDICE Home Medications: Ambulatory Orders Medication Instructions Recorded Cholecalciferol (Vitamin D3) 2,000 unit PO DAILY 10/30/16 [Vitamin D3] Formoterol Fumarate [Perforomist] 20 mcg INHALATION BID 04/18/17 fluticasone 50 mcg/actuation nasal 2 spray INTRANASAL DAILY #16 g 11/28/17 spray,suspension Methadone HCl 5 mg PO BID 12/06/17 Calcium Carb/Vitamin D [Os-Zach 1 tablet PO BIDCM 12/26/17 500MG + D] Guaifenesin [Robitussin] 10 ml GT Q4H PRN PRN udc 01/02/18 Albuterol Inhaler [Ventolin Hfa] 1 - 2 puff INHALATION Q2H PRN PRN 01/24/18 #1 inhaler Budesonide [Pulmicort] 0.25 mg IH BID #60 ampul.neb 01/24/18 Lidocaine 2% Viscous [Xylocaine 5 ml PO Q4H PRN PRN #100 udc 01/24/18 Viscous] Metoprolol Tartrate [Lopressor 25 mg PO BID #60 tab 01/24/18 (beta cirilo)] Mirtazapine [Remeron] 15 mg PO QHS #30 tab 01/24/18 Polyethylene Glycol 3350 [Miralax] 17 gm PO DAILY #30 packet 01/24/18 Potassium Chloride [K-Dur] 20 meq PO BIDCM #60 tab 01/24/18 Senna/Docusate Sodium [Senokot-S] 2 tab PO BID #120 tab 01/24/18 morphine solution (IR) [Roxanol 5 mg SL Q4H PRN #11 ml 01/24/18 (IR oral solution)] Apixaban [Eliquis] 2.5 mg PO BID 02/07/18 Clonazepam [Klonopin] 0.5 mg PO Q12H 02/07/18 Diltiazem [Cardizem] 60 mg PO Q6 02/07/18 Famotidine [Pepcid] 40 mg PO DAILY 02/07/18 Iron Polysaccharide Complex 150 mg PO DAILYCM 02/07/18 [Ferrex 150] Jevity 1.5 240 ml GT 0800,1200,1800 02/07/18 Lactobacillus Acidophilus 1 tablet PO BID 02/07/18 [Acidophilus] Levothyroxine [Synthroid] 88 mcg GT DAILY@0600 02/07/18 Surgical History: cholecystectomy, hysterectomy, - - Lobectomy for aspergillosis. 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 Smoking Status: Never smoker - *Family History Maternal History Items: No pertinent history Paternal History Items: Cancer VTE Information - Inpt Only VTE Present on Admission: No VTE Mechan Device Prophylaxis: SCD's VTE Pharm Prophylaxis ordered?: Yes - Physical Exam General: Alert, Oriented x3 Neck: Supple Lungs: Clear to auscultation Cardiovascular: Irregular Rate Abdomen: Bowel Sounds Present, Soft, Non Tender Extremities: No edema Neurological: Cranial nerves II-XII grossly intact, Motor Exam 5/5 strength throughout Vital Signs Temp Pulse Resp BP Pulse Ox 96.7 F L 110 H 20 H 145/77 H 97 02/07/18 12:36 02/07/18 13:30 02/07/18 13:30 02/07/18 13:30 02/07/18 13:30 Oxygen Flow Rate (L/min) 2 Oxygen Delivery Method Nasal Cannula Weight: 43.7 kg Body Mass Index (BMI) 15.5 Laboratory Tests Past 24 Hrs 02/07/18 12:50 Troponin I < 0.015 Assessment/Plan 1. Atrial fibrillation with rapid ventricular response; we will continue on Cardizem, she is on Eliquis. Patient and Family request Dr. Welsh consult and that is fine by me. 2. Severe dysphagia/odynophagia; history of candidal esophagitis , she is now status post PEG tube placement. 3. chronic respiratory failure with hypoxia will continue on supplemental oxygen. 4. COPD/bronchiectasis; no evidence of acute exacerbation at this time, she is on bronchodilators and supplemental oxygen. 5. Elevated D-dimer; CT scan of the chest has been ordered. 6. Hypothyroidism; continue her home dose of Synthroid.. 7. History of Takotsubo cardiomyopathy;
[2018-02-07] MEDS: Albuterol 2.5 MG/3 ML VIAL.NEB. INHALATION (18:42)
[2018-02-07] MEDS: Budesonide Respules 0.5 MG/2 ML AMPUL.NEB. INHALATION (18:43)
[2018-02-07] MEDS: Calcium Carb/Vitamin D 1 TABLET Tablet GT (18:52)
[2018-02-07] MEDS: Jevity 1.5. 1,000 ML Bottle 240 ML GT (18:53)
[2018-02-07] MEDS: Metoprolol Tartrate 25 MG Tablet GT (18:53)
[2018-02-07] MEDS: Senna/Docusate Sodium 1 Tablet 2 TABLET GT (18:53)
[2018-02-07] MEDS: clonazePAM 0.5 MG Tablet PO (21:08)
[2018-02-07] MEDS: APIXABAN 2.5 MG TABLET GT (21:09)
[2018-02-07] MEDS: Mirtazapine 15 MG Tablet GT (21:09)
[2018-02-08] VITALS (33 sets, daily range): BP systolic 99–130; BP diastolic 46–91; PULSE 64–107; RESP 15–26; TEMP 36.4–37.2; O2SAT 96–100
[2018-02-08] MEDS: 0.9% NaCl Peripheral Flush Adult/Peds IV ×2 (01:06→17:31)
[2018-02-08] MEDS: Levothyroxine 88 MCG Tablet GT (05:17)
[2018-02-08] MEDS: Budesonide Respules 0.5 MG/2 ML AMPUL.NEB. INHALATION ×2 (07:03→18:39)
[2018-02-08] MEDS: Albuterol 2.5 MG/3 ML VIAL.NEB. INHALATION ×3 (07:03→18:39)
[2018-02-08] MEDS: Calcium Carb/Vitamin D 1 TABLET Tablet GT (07:42)
[2018-02-08] MEDS: Iron Polysaccharide Complex 150 MG CAPSULE PO (07:42)
[2018-02-08] MEDS: Jevity 1.5. 1,000 ML Bottle 240 ML GT ×3 (07:42→17:33)
[2018-02-08] MEDS: Senna/Docusate Sodium 1 Tablet 2 TABLET GT (10:08)
[2018-02-08] MEDS: Famotidine 20 MG Tablet GT (10:08)
[2018-02-08] MEDS: Metoprolol Tartrate 25 MG Tablet GT (10:09)
[2018-02-08] MEDS: APIXABAN 2.5 MG TABLET GT (10:09)
[2018-02-08] MEDS: Fluticasone 0.05% 1 SPRAY NASAL.SRY 2 SPRAY NASAL (10:13)
[2018-02-08] MEDS: clonazePAM 0.5 MG Tablet PO ×2 (10:13→21:54)
--- NOTE | 2018-02-08 11:50 | CASEMGMT ---
RN CM Assessment Link. DC Plan: Home -Intro role of CM to patient and her . Pt was recently dc'd from TCU. States she was independent with care needs, did not use ambulatory devices. Has equipment for tube feeds @ home. -Discussed need for home health/PT/OT- pt and state they do not want on discharge. -RN CM let them know we are available to assist if needs arise. Dary BLANDN RN ACM
[2018-02-08] MEDS: dilTIAZem 60 MG Tablet PO ×3 (12:46→23:48)
--- NOTE | 2018-02-08 16:42 | CHAPLAIN ---
Type of Pastoral Visit _x__ Initial Visit ___ Follow-up Visit ___ On-call Visit ___ General Patient Visit ___ Spiritual Assessment ___ Family Conference ___ Bereavement ___ Rapid Response ___ Code Blue ___ Other (describe below) Pastoral Care Referral From _x__ Patient ___ Family ___ Nurse ___ Physician ___ Maintenance Craftsman ___ Brass Finisher ___ Other (describe below) Sacrament/Intervention _x__ Active listening ___ Anointing ___ Muslim ___ Bereavement ___ Communion ___ Henrietta exploration ___ ___ Life review ___ Prayer ___ Reconciliation ___ Sacrament of Sick ___ Supportive presence ___ Wedding ___ Other (describe below) Pastoral Comments
--- NOTE | 2018-02-08 16:45 | PCM.PN.HOSP ---
Subjective: CC: Generalized weakness, A. fib Objective: The patient feels much better today, he has less weakness. He does not want to resume the beta-cirilo that was recently started as it is making her very weak. Vitals/I&O's: Vital Signs Temp Pulse Resp BP Pulse Ox 98.8 F 87 18 116/91 H 99 02/08/18 15:05 02/08/18 15:09 02/08/18 15:05 02/08/18 15:05 02/08/18 15:05 Oxygen Flow Rate (L/min) 2 Oxygen Delivery Method Nasal Cannula Weight: 43.7 kg Body Mass Index (BMI) 15.5 Intake and Output for Last 24 Hours 02/06/18 02/07/18 02/08/18 23:59 23:59 23:59 Intake Total 750 / 750 1009 / 1009 Balance 750 / 750 1009 / 1009 General: Alert, Oriented x3 Neck: Supple Lungs: Clear to auscultation Cardiovascular: Regular rate, Normal S1, Normal S2 Abdomen: Bowel Sounds Present, Soft, Non Tender Extremities: No edema Neurological: Cranial nerves II-XII grossly intact, Motor Exam 5/5 strength throughout Current Medications Albuterol Sulfate (Ventolin Aerosols) 2.5 mg INHALATION Q6HWA.RT [facility] Last Admin: 02/08/18 13:29 Dose: 2.5 mg Apixaban (Eliquis) 2.5 mg PO BID [facility] Budesonide (Pulmicort Aerosol) 0.5 mg INHALATION Q12H.RT [facility] Last Admin: 02/08/18 07:03 Dose: 0.5 mg Calcium/Vitamin D (Os-Zach 500mg + D) 1 tablet PO BIDCM [facility] Cholecalciferol (Vitamin D) 2,000 unit PO DAILY [facility] Clonazepam (Klonopin) 0.5 mg PO Q12 [facility] Last Admin: 02/08/18 10:13 Dose: 0.5 mg Diltiazem HCl (Cardizem) 60 mg PO Q6 [facility] Last Admin: 02/08/18 12:46 Dose: 60 mg Enteral Nutritional Formula (Jevity 1.5) 240 ml GT 0800,1200,1800 [facility] Famotidine (Pepcid) 20 mg PO DAILY [facility] Fluticasone Propionate (Flonase Nasal [place]) 2 spray NASAL DAILY [facility] Last Admin: 02/08/18 10:13 Dose: 2 spray Guaifenesin (Robitussin) 10 ml PO Q4H PRN PRN PRN Reason: CONGESTION Lactobacillus Acidophilus (Acidophilus) 1 tablet PO BID [facility] Levothyroxine Sodium (Synthroid) 88 mcg PO DAILY@0600 [facility] Lidocaine HCl (Xylocaine Viscous) 5 ml PO Q4H PRN PRN PRN Reason: PAIN Methadone HCl () 5 mg PO BID [facility] Mirtazapine (Remeron) 15 mg PO QHS [facility] Morphine Sulfate (Roxanol (Ir Oral Solution)) 5 mg SL Q4H PRN PRN Reason: PAIN Polyethylene Glycol (Miralax) 17 gm PO DAILY [facility] Polysaccharide Iron Complex (Ferrex 150) 150 mg PO DAILYCM [facility] Last Admin: 02/08/18 07:42 Dose: 150 mg Potassium Bicarb/Potassium Chloride (Potassium Chl 25 Meq Eff (For Liquid)) 25 meq PO BIDCM [facility] Senna/Docusate Sodium (Senokot-S, Cecilia-Colace) 2 tablet PO BID [facility] Sodium Chloride () 5 - 30 ml IV UD PRN PRN Reason: SALINE FLUSH Last Admin: 02/08/18 01:06 Dose: 10 ml Medical Necessity - Tobacco Use Smoking Status: Never smoker Assessment/Plan All Active Problems (Last Updated 12/14/17 @ 17:06 by Guillermina Vincent DO) Gastritis (Acute) Metabolic encephalopathy (Acute) Acute exacerbation of chronic obstructive pulmonary disease (COPD) (Resolved) Acute shock liver (Resolved) Hemoptysis (Resolved) Septic shock (Resolved) Spontaneous pneumothorax (Resolved) 1. Atrial fibrillation with rapid ventricular response; we will change to p.o. Cardizem, we will continue on Eliquis. she declined her beta-blockers. 2. Severe dysphagia/odynophagia; history of candidal esophagitis , she is now status post PEG tube placement. 3. chronic respiratory failure with hypoxia will continue on supplemental oxygen. 4. COPD/bronchiectasis; no evidence of acute exacerbation at this time, she is on bronchodilators and supplemental oxygen. 5. Elevated D-dimer; CTA chest was unremarkable. 6. Hypothyroidism; continue her home dose of Synthroid.. 7. History of Takotsubo cardiomyopathy Code Visit OBSV E&M: 21605 Subsequent observation care L3
--- NOTE | 2018-02-08 16:48 | PN_ITS ---
Subjective: CC: Generalized weakness, A. fib Objective: The patient feels much better today, he has less weakness. He does not want to resume the beta-cirilo that was recently started as it is making her very weak. Vitals/I&O's: Vital Signs Temp Pulse Resp BP Pulse Ox 98.8 F 87 18 116/91 H 99 02/08/18 15:05 02/08/18 15:09 02/08/18 15:05 02/08/18 15:05 02/08/18 15:05 Oxygen Flow Rate (L/min) 2 Oxygen Delivery Method Nasal Cannula Weight: 43.7 kg Body Mass Index (BMI) 15.5 Intake and Output for Last 24 Hours 02/06/18 02/07/18 02/08/18 23:59 23:59 23:59 Intake Total 750 / 750 1009 / 1009 Balance 750 / 750 1009 / 1009 General: Alert, Oriented x3 Neck: Supple Lungs: Clear to auscultation Cardiovascular: Regular rate, Normal S1, Normal S2 Abdomen: Bowel Sounds Present, Soft, Non Tender Extremities: No edema Neurological: Cranial nerves II-XII grossly intact, Motor Exam 5/5 strength throughout Current Medications Albuterol Sulfate (Ventolin Aerosols) 2.5 mg INHALATION Q6HWA.RT [facility] Last Admin: 02/08/18 13:29 Dose: 2.5 mg Apixaban (Eliquis) 2.5 mg PO BID [facility] Budesonide (Pulmicort Aerosol) 0.5 mg INHALATION Q12H.RT [facility] Last Admin: 02/08/18 07:03 Dose: 0.5 mg Calcium/Vitamin D (Os-Zach 500mg + D) 1 tablet PO BIDCM [facility] Cholecalciferol (Vitamin D) 2,000 unit PO DAILY [facility] Clonazepam (Klonopin) 0.5 mg PO Q12 [facility] Last Admin: 02/08/18 10:13 Dose: 0.5 mg Diltiazem HCl (Cardizem) 60 mg PO Q6 [facility] Last Admin: 02/08/18 12:46 Dose: 60 mg Enteral Nutritional Formula (Jevity 1.5) 240 ml GT 0800,1200,1800 [facility] Famotidine (Pepcid) 20 mg PO DAILY [facility] Fluticasone Propionate (Flonase Nasal [place]) 2 spray NASAL DAILY [facility] Last Admin: 02/08/18 10:13 Dose: 2 spray Guaifenesin (Robitussin) 10 ml PO Q4H PRN PRN PRN Reason: CONGESTION Lactobacillus Acidophilus (Acidophilus) 1 tablet PO BID [facility] Levothyroxine Sodium (Synthroid) 88 mcg PO DAILY@0600 [facility] Lidocaine HCl (Xylocaine Viscous) 5 ml PO Q4H PRN PRN PRN Reason: PAIN Methadone HCl () 5 mg PO BID [facility] Mirtazapine (Remeron) 15 mg PO QHS [facility] Morphine Sulfate (Roxanol (Ir Oral Solution)) 5 mg SL Q4H PRN PRN Reason: PAIN Polyethylene Glycol (Miralax) 17 gm PO DAILY [facility] Polysaccharide Iron Complex (Ferrex 150) 150 mg PO DAILYCM [facility] Last Admin: 02/08/18 07:42 Dose: 150 mg Potassium Bicarb/Potassium Chloride (Potassium Chl 25 Meq Eff (For Liquid)) 25 meq PO BIDCM [facility] Senna/Docusate Sodium (Senokot-S, Cecilia-Colace) 2 tablet PO BID [facility] Sodium Chloride () 5 - 30 ml IV UD PRN PRN Reason: SALINE FLUSH Last Admin: 02/08/18 01:06 Dose: 10 ml Medical Necessity - Tobacco Use Smoking Status: Never smoker Assessment/Plan All Active Problems (Last Updated 12/14/17 @ 17:06 by Guillermina Vincent DO) Gastritis (Acute) Metabolic encephalopathy (Acute) Acute exacerbation of chronic obstructive pulmonary disease (COPD) (Resolved) Acute shock liver (Resolved) Hemoptysis (Resolved) Septic shock (Resolved) Spontaneous pneumothorax (Resolved) 1. Atrial fibrillation with rapid ventricular response; we will change to p.o. Cardizem, we will continue on Eliquis. she declined her beta-blockers. 2. Severe dysphagia/odynophagia; history of candidal esophagitis , she is now status post PEG tube placement. 3. chronic respiratory failure with hypoxia will continue on supplemental oxygen. 4. COPD/bronchiectasis; no evidence of acute exacerbation at this time, she is on bronchodilators and supplemental oxygen. 5. Elevated D-dimer; CTA chest was unremarkable. 6. Hypothyroidism; continue her home dose of Synthroid.. 7. History of Takotsubo cardiomyopathy Code Visit OBSV E&M: 38682 Subsequent observation care L3
[2018-02-08] MEDS: Calcium Carb/Vitamin D 1 TABLET Tablet PO (17:32)
[2018-02-08] MEDS: APIXABAN 2.5 MG TABLET PO (21:54)
[2018-02-08] MEDS: Mirtazapine 15 MG Tablet PO (21:54)
[2018-02-08] MEDS: Senna/Docusate Sodium 1 Tablet 2 TABLET PO (21:55)
[2018-02-09] VITALS (7 sets, daily range): BP systolic 107–131; BP diastolic 61–67; PULSE 74–98; RESP 15–18; TEMP 36.6–36.8; O2SAT 99–100
[2018-02-09] MEDS: Levothyroxine 88 MCG Tablet PO (05:15)
[2018-02-09] MEDS: dilTIAZem 60 MG Tablet PO ×2 (05:15→12:02)
[2018-02-09] MEDS: Calcium Carb/Vitamin D 1 TABLET Tablet PO (08:57)
[2018-02-09] MEDS: Jevity 1.5. 1,000 ML Bottle 240 ML GT ×2 (08:57→14:30)
[2018-02-09] MEDS: Iron Polysaccharide Complex 150 MG CAPSULE PO (08:57)
[2018-02-09] MEDS: Senna/Docusate Sodium 1 Tablet 2 TABLET PO (09:00)
[2018-02-09] MEDS: APIXABAN 2.5 MG TABLET PO (09:00)
[2018-02-09] MEDS: Famotidine 20 MG Tablet PO (09:00)
[2018-02-09] MEDS: Fluticasone 0.05% 1 SPRAY NASAL.SRY 2 SPRAY NASAL (09:02)
[2018-02-09] MEDS: Polyethylene Glycol 3350 17 GM PACKET PO (09:09)
[2018-02-09] MEDS: clonazePAM 0.5 MG Tablet PO (09:09)
[2018-02-09] MEDS: Albuterol 2.5 MG/3 ML VIAL.NEB. INHALATION (13:22)
--- NOTE | 2018-02-09 13:53 | PCM.DC ---
You will use the following diet at home:: Regular Discharge Activity: Return to Normal Activity Allergies/Adverse Reactions: Allergies sulfamethoxazole [From Bactrim] Allergy (Verified 02/07/18 09:49) Hives PT STATES NOT ALLERGIC tetracycline Allergy (Verified 02/07/18 09:49) Hives trimethoprim [From Bactrim] Allergy (Verified 02/07/18 09:49) Hives verapamil Allergy (Verified 02/07/18 09:49) Unknown itraconazole Adverse Reaction (Verified 02/07/18 09:49) chest tightness w/ upper and loewr extremity weakness warfarin [From Coumadin] Adverse Reaction (Verified 02/07/18 09:49) gi bleed SODIUM P[place]ATH[place] Allergy (Uncoded 02/07/18 09:49) jaundice/hives JAUNDICE Medications to take at Discharge Cholecalciferol (Vitamin D3) [Vitamin D3] 2,000 unit PO DAILY 10/30/16 Formoterol Fumarate [Perforomist] 20 mcg INHALATION BID 04/18/17 fluticasone 50 mcg/actuation nasal spray,suspension 2 spray INTRANASAL DAILY #16 g 11/28/17 Methadone HCl 5 mg PO BID 12/06/17 Calcium Carb/Vitamin D [Os-Zach 500MG + D] 1 tablet PO BIDCM 12/26/17 Guaifenesin [Robitussin] 10 ml GT Q4H PRN PRN udc 01/02/18 Albuterol Inhaler [Ventolin Hfa] 1 - 2 puff INHALATION Q2H PRN PRN #1 inhaler 01/24/18 Budesonide [Pulmicort] 0.25 mg IH BID #60 ampul.neb 01/24/18 Lidocaine 2% Viscous [Xylocaine Viscous] 5 ml PO Q4H PRN PRN #100 udc 01/24/18 Mirtazapine [Remeron] 15 mg PO QHS #30 tab 01/24/18 Polyethylene Glycol 3350 [Miralax] 17 gm PO DAILY #30 packet 01/24/18 Potassium Chloride [K-Dur] 20 meq PO BIDCM #60 tab 01/24/18 Senna/Docusate Sodium [Senokot-S] 2 tab PO BID #120 tab 01/24/18 morphine solution (IR) [Roxanol (IR oral solution)] 5 mg SL Q4H PRN #11 ml 01/24/18 Apixaban [Eliquis] 2.5 mg PO BID 02/07/18 Clonazepam [Klonopin] 0.5 mg PO Q12H 02/07/18 Diltiazem [Cardizem] 60 mg PO Q6 02/07/18 Famotidine [Pepcid] 40 mg PO DAILY 02/07/18 Iron Polysaccharide Complex [Ferrex 150] 150 mg PO DAILYCM 02/07/18 Jevity 1.5 240 ml GT 0800,1200,1800 02/07/18 Lactobacillus Acidophilus [Acidophilus] 1 tablet PO BID 02/07/18 Levothyroxine [Synthroid] 88 mcg GT DAILY@0600 02/07/18 Primary Care Physician: Christo Wilde MD [Primary Care Provider] - Within 2 Weeks Proposed Discharge Date: 02/09/18
--- NOTE | 2018-02-09 13:54 | PCM.DC.SUM ---
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) Chronic respiratory failure with hypoxia (Chronic) NEPTALI (obstructive sleep apnea) (Chronic) PND (paroxysmal nocturnal dyspnea) (Chronic) Bronchiectasis (Chronic) Pulmonary hypertension (Chronic) Takotsubo cardiomyopathy (Chronic) EF in August of 2016 was 45-50%, previously 20% Chronic atrial fibrillation (Chronic) Hypomagnesemia (Chronic) Recheck magnesium in 48 hours Hospital Course and Treatment Operations: None Summary of Care Provided: The patient is a 72 year old F with past medical history of obstructive sleep apnea, chronic respiratory failure with hypoxemia on supplemental oxygen, depression, 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 fib, chronic pulmonary hypertension. She was recently discharged from the hospital after hospitalization for frequent dysphagia from oropharyngeal candidiasis and PEG tube placement. Protein calorie malnutrition who presented to the emergency room with generalized weakness and fatigue. She did to have atrial fibrillation with rapid ventricular response, she was started on IV Cardizem drip with improved ventricular rate. she denies any chest pain, purulent cough, fever, chills or palpitations. 1. Atrial fibrillation with rapid ventricular response; on p.o. Cardizem 60 mg every 6 hours, we will continue on Eliquis. she declined her beta-blockers. 2. Severe dysphagia/odynophagia; history of candidal esophagitis , she is now status post PEG tube placement. 3. chronic respiratory failure with hypoxia will continue on supplemental oxygen. 4. COPD/bronchiectasis; no evidence of acute exacerbation at this time, she is on bronchodilators and supplemental oxygen. 5. Elevated D-dimer; CTA chest is s unremarkable. 6. Hypothyroidism; continue her home dose of Synthroid.. 7. History of Takotsubo cardiomyopathy, this is stable. Discharge Activity: Return to Normal Activity Home Medications: Medications to take at Discharge Cholecalciferol (Vitamin D3) [Vitamin D3] 2,000 unit PO DAILY 10/30/16 Formoterol Fumarate [Perforomist] 20 mcg INHALATION BID 04/18/17 fluticasone 50 mcg/actuation nasal spray,suspension 2 spray INTRANASAL DAILY #16 g 11/28/17 Methadone HCl 5 mg PO BID 12/06/17 Calcium Carb/Vitamin D [Os-Zach 500MG + D] 1 tablet PO BIDCM 12/26/17 Guaifenesin [Robitussin] 10 ml GT Q4H PRN PRN udc 01/02/18 Albuterol Inhaler [Ventolin Hfa] 1 - 2 puff INHALATION Q2H PRN PRN #1 inhaler 01/24/18 Budesonide [Pulmicort] 0.25 mg IH BID #60 ampul.neb 01/24/18 Lidocaine 2% Viscous [Xylocaine Viscous] 5 ml PO Q4H PRN PRN #100 udc 01/24/18 Mirtazapine [Remeron] 15 mg PO QHS #30 tab 01/24/18 Polyethylene Glycol 3350 [Miralax] 17 gm PO DAILY #30 packet 01/24/18 Potassium Chloride [K-Dur] 20 meq PO BIDCM #60 tab 01/24/18 Senna/Docusate Sodium [Senokot-S] 2 tab PO BID #120 tab 01/24/18 morphine solution (IR) [Roxanol (IR oral solution)] 5 mg SL Q4H PRN #11 ml 01/24/18 Apixaban [Eliquis] 2.5 mg PO BID 02/07/18 Clonazepam [Klonopin] 0.5 mg PO Q12H 02/07/18 Diltiazem [Cardizem] 60 mg PO Q6 02/07/18 Famotidine [Pepcid] 40 mg PO DAILY 02/07/18 Iron Polysaccharide Complex [Ferrex 150] 150 mg PO DAILYCM 02/07/18 Jevity 1.5 240 ml GT 0800,1200,1800 02/07/18 Lactobacillus Acidophilus [Acidophilus] 1 tablet PO BID 02/07/18 Levothyroxine [Synthroid] 88 mcg GT DAILY@0600 02/07/18 Primary Care Physician: Christo Wilde MD [Primary Care Provider] - Within 2 Weeks Medical Necessity - Tobacco Use Smoking Status: Never smoker Meaningful Use Info Meaningful Use Diagnoses (Choose all that apply): None applicable
== END 2018-02-09 14:46 | disposition home or self-care (01) | DRG 308 ==
LOC: ED 12:06 → PCU 12:12
PROVIDERS: Admitting Provider Internal Medicine; Emergency Provider Emergency Medicine; Family Provider Family Medicine; PCP Family Medicine; Visit Provider Internal Medicine
DX: I48.2 Chronic atrial fibrillation (principal); E43 Unspecified severe protein-calorie malnutrition; J96.11 Chronic respiratory failure with hypoxia; Z68.1 Body mass index [BMI] 19.9 or less, adult; Z93.1 Gastrostomy status; E03.9 Hypothyroidism, unspecified; Z99.81 Dependence on supplemental oxygen; R13.10 Dysphagia, unspecified; J47.9 Bronchiectasis, uncomplicated; Z79.02 Long term (current) use of antithrombotics/antiplatelets; Z86.79 Personal history of other diseases of the circulatory system
CPT/HCPCS: 36415; 71045; 71275; 80048; 81001; 83735; 84100; 84443; 84484; 85025; 85379; 92526; 93005; 93306; 94640; 97116; 97162; 97165; 97535; 97802; 99284; J7030; Q9967; A4216

== ENCOUNTER → 2018-02-13 10:42 | Outpatient (CLI) | payer MEDICARE, OTHER, SELFPAY ==
--- NOTE | 2018-02-13 10:42 | DT_ITS ---
This patient was seen during an EMR downtime February 13, 2018 - February 20, 2018. This patient may have a combination of paper and electronic documentation or all paper documentation. All documentation is viewable within the e-chart portion of [facility] for each patient visit.
== END ==
PROVIDERS: Family Provider Family Medicine; PCP Family Medicine; Visit Provider Otolaryngology Otolaryngology/Facial Plastic Surgery
DX: J32.9 Chronic sinusitis, unspecified (principal)
CPT/HCPCS: 87070; 87186; 87205

== ENCOUNTER → 2018-02-23 15:42 | Outpatient (CLI) | payer MEDICARE, OTHER, SELFPAY | PROVIDERS: Family Provider Family Medicine; Visit Provider Otolaryngology Otolaryngology/Facial Plastic Surgery | DX: J32.9 Chronic sinusitis, unspecified (principal) | CPT/HCPCS: 87070; 87205 ==

== ENCOUNTER 2018-03-07 09:00 | Outpatient (RCR) | payer MEDICARE, OTHER, SELFPAY ==
--- NOTE | 2018-03-07 12:57 | HP.PCM_ITS ---
History and Physical Identifying information Patient is a 72 year old male who presents to the [facility] with chief complaint of depression and anxiety. I have had a lot of medical issues. History is been obtained per interview with patient, discussion with staff, review of chart. Case discussed with treatment team. Records reviewed including office visit of 03/01/[address] Angel. History of present illness Patient is a 72-year-old female referred by Dr. Angel to the [facility] medicine [facility] for evaluation and treatment of depression and anxiety. Patient reports intermittent depression and anxiety for the past 10 years associated with multiple medical issues. She has COPD and pulmonary issues which she believes is related to previous work exposures. She has had a fungal infection of her sinuses and multiple episodes of pneumonia requiring hospitalization and ventilator support. She was most recently hospitalized for 21 days within the past 2 months for infections. She had a PEG tube placed 3 weeks ago. She endorses a depressed mood with anhedonia decreased energy and increased urges to sleep. She is tearful about the loss of her independence. She reports difficulty concentrating. She has passive thoughts of . No suicide plan or intent. Feels able to maintain safety. No homicidal ideation. No symptoms consistent with psychosis or melissa. Reports ruminative anxiety particularly about medical issues. Panic attacks 2-3 times per week in which she feels shortness of breath and heart palpitations. Denies obsessions or compulsions. Reports currently sleeping from 10 PM to 7 AM. Notes that she falls asleep while reading 3-4 times per day napping for 15 minutes each. She has had a decreased appetite with significant weight loss. PEG tube was placed 3 weeks ago and she started using the PEG tube within the past week (8 ounces of supplement 4 times per day. She states she does feel better with increased nutrition and notes that her appetite has also increased. Past psychiatric history Patient denies previous psychiatric evaluation. She denies previous psychiatric hospitalization or suicide attempts. She does not have a psychiatrist or counselor. She has been prescribed Ativan in the past which she is not currently taking. She denies other history of psychotropic med Acacian. Substance use history Denies smoking cigarettes, ingestion of alcohol or use of illicit drugs. Past medical history COPD-home oxygen A. fib Cholecystectomy Denies history of seizure or head injury Review of systems Intermittent shortness of breath due to pulmonary issues. No current fevers chills nausea vomiting chest pain. All other systems reviewed and negative except as above. Allergies Tetracycline and Bactrim Current medications Home oxygen Multivitamin Vitamin D Albuterol nebulizer Eliquis Coreg Diltiazem Iron supplement Probiotic Calcium supplement Family medical psychiatric history-denies Developmental social history Born in [place] where she lived until age 8. Moved to [place] with parents and siblings. Oldest of 7 siblings. Describes growing up as okay. Denies abuse. Completed high school. Went to work, got and had kids. for 57 years. Has 2 sons and 2 grandsons. Lives with . Legal history-none Mental status exam Vital signs will be taken and reviewed and discussed with nursing. 03/01/2018 vitals-height 5 foot 6 inches, weight 44 kg, body mass index 16, blood pressure 153/73, respiratory rate 18, pulse 105. Alert and oriented . No acute distress. Ambulatory with normal gait and station. Appears stated age. Casually dressed and groomed. Appropriate hygiene. Cooperative with interview. Good eye contact. No psychomotor agitation or retardation. Mood depressed. Affect congruent. Speech is clear and with regular rate and rhythm. Language fluent. Thought process organized. Associations logical. Thought content significant for ruminative anxiety and themes of depression. Passive thoughts of . No suicidal or homicidal ideation related or detected. No symptoms consistent with psychosis noted or detected. Immediate recent and remote memory grossly intact. Attention and concentration are fair. Estimated intelligence and fund of knowledge average. Judgment and insight fair. Labs and testing Patient reports recent thyroid studies within normal limits. Lab work will be requested from Dr. Angel. Requisition provided for BMP phosphorus and magnesium as patient is at risk for refeeding syndrome as she has recently increased nutritional intake due to PEG. Diagnosis 1 major depressive disorder recurrent moderate F 33.1 2 anxiety unspecified 3 severe malnutrition-risk for refeeding syndrome 4 Chronic respiratory failure with hypoxia Plan Admit to IOP as the structured setting is necessary to prevent decompensation. Risk-benefit alternatives of medications discussed with patient. Patient declines further medication at this time. Requisition provided for BMP, phosphorus and magnesium as patient is at risk for refeeding syndrome due to increased nutritional intake. Encouraged to follow-up with medical providers. Patient encouraged to establish with outpatient psychiatric care for when IOP complete. Patient acknowledges understanding and is in agreement with plan. Feels able to maintain safety. Agrees to seek help or emergency care feeling unsafe to self or others.
--- NOTE | 2018-03-07 12:57 | BH.DR.ITP ---
Initial Treatment Plan - Patient Information Visit Information: ADMISSION DATE: EXPECTED LOS: 4-6 weeks Diagnoses:: Major depressive disorder F 33.1 - Problems/Symptoms Problem #1:: Depression Symptom:: Sad mood, anhedonia, low energy, passive thoughts of , biologic disruption of sleep and appetite Problem #2:: Anxiety Symptom:: Rumination, panic
--- NOTE | 2018-03-07 15:26 | BH.SGPN ---
Service Group Progress Note - Session Psychotherapy Session #1 Date Open:: 03/07/18 Time Started:: 09:03 Time Stopped:: 10:09 Targeted Problem #:: 1 Type of Group:: Process - 5 participants Goal of Group:: The goal of today's group was to check-in with client's mood, stressors, and positives, review homework and introduce topic for the day. Client Response/Progress/Benefit:: Client new to IOP program and was adjusting to group dynamics, therefore taking on a mostly passive role. Client was able to warm up to the group after hearing some of the other participants share. SHe appeared to benefit from the group setting and discussed connecting with another participant expressing feelings of being a burden. Client displayed progress in her ability to open up to the group about what had led to program admission. Client described several physical health ailments which have not been responding well to medication. She indicated that she has begun to notice that her physical health stressors are beginning to negatively impact client mental health. Client identified wanting to learn skills to better cope with her recent loss in independence and managing depression. Eye Contact:: Fair Motor Activity:: Appropriate Appearance:: Casual Speech:: Appropriate Mood:: Anxious, Depressed Affect:: Constricted Thoughts:: Linear, Logical, No evidence of hallucinations/delusions noted Staff Interventions:: Therapist used open-ended questions to elicit information about client's current stressors and mood state. Therapist was supportive by using active listening and reflection.
--- NOTE | 2018-03-07 15:57 | BH.COMM ---
Communication Note - Communication with Client Communication Note: Therapist met with client to review client thoughts and ability to adjust following first day in IOP program. Client indicated finding the material on coping skills to be helpful and indicated wanting to improve current coping mechanisms used. Client additionally discussed goals of decreasing depressive symptoms and improving her ability and motivation to engage in activities previously enjoyed. Client expressed openness to trying new strategies and is hopeful she will be able to improve her ability to manage mental health symptoms and decrease current depression levels.
--- NOTE | 2018-03-07 16:23 | BH.SGPN ---
Service Group Progress Note - Session Psychotherapy Session #2 Date Open:: 03/07/18 Time Started:: 10:25 Time Stopped:: 11:15 Targeted Problem #:: 1 Type of Group:: Illness Management Goal of Group:: Therapist facilitated the group discussion about coping strategies. Therapist group and activity challenge them to work together in utilize healthy coping skills in the moment. Therapist utilized the activity as a tool to process what it feels like when dealing with problems and what strategies they used to cope throughout activity. Client Response/Progress/Benefit:: Client alert and oriented, tended to be quiet but appeared to be listening attentively to others. Client showed increased engagement during challenge activity AEB client providing her thoughts and ideas. Client reported her coping skills base is not completely strong with having more stable set of external coping skills and lacking internal coping skills. Client seemed to benefit from learning about maladaptive vs adapative coping skills as well as increased awareness of importance for stable base of healthy coping skills. Eye Contact:: Fair Motor Activity:: Appropriate Appearance:: Casual Speech:: Appropriate Mood:: Anxious Affect:: Constricted Thoughts:: Linear, Logical, No evidence of hallucinations/delusions noted Staff Interventions:: Therapist facilitated the group discussion about coping strategies. Therapist group and activity challenge them to work together in utilize healthy coping skills in the moment. Therapist utilized the activity as a tool to process what it feels like when dealing with problems and what strategies they used to cope throughout activity.
--- NOTE | 2018-03-09 10:48 | BH.SGPN ---
Service Group Progress Note - Session Psychotherapy Session #1 Date Open:: 18 - 5 group members Time Started:: 09:00 Time Stopped:: 10:00 Targeted Problem #:: 1 Type of Group:: Process Goal of Group:: The goal of today's group was to check-in with client's mood, stressors, and positives, and introduce topic for the day. Client Response/Progress/Benefit:: Client responded well to session, receptive to supportive statements. Client reports feeling sorry for myself today. Client stated, I'll have a good day and then I'll have a bad day which leads client to think she will never feel better. Client was receptive to gentle cognitive distortion challenging from the group. Client shared she almost did not come to group today due to physical illness, but client decided coming was important to her. Client was praised for her attendance and strength. Client shared she plans to spend time with her today who is a positive support. Client used several putdowns of herself while sharing such as I'm not intelligent. Client appeared to benefit from receiving emotional support from peers. Progress limited as it is client's first week, but client demonstrating motivation as shown by her attendance today despite illness. Client to continue IOP to prevent decompensation, increase self-esteem, and reduce mental health symptoms. Eye Contact:: Fair Motor Activity:: Appropriate Appearance:: Neat Speech:: Soft Mood:: Anxious, Dysthymic Affect:: Flat Thoughts:: Other - possible thought blocking, sharing I can't think today. Client had difficulty filling out the symptom tracker., No evidence of hallucinations/delusions noted Staff Interventions:: Therapist used open-ended questions to elicit information about client's current stressors and mood state. Therapist was supportive by using active listening and reflection.
--- NOTE | 2018-03-09 14:57 | BH.SGPN_ITS ---
Service Group Progress Note - Session Psychotherapy Session #2 Date Open:: 03/09/18 Time Started:: 10:09 Time Stopped:: 11:05 Targeted Problem #:: 1 Type of Group:: Illness Management - 5 participants Goal of Group:: The goal of group was to increase understanding of goals and goal setting benefits and practice a method of goal setting. Client Response/Progress/Benefit:: Client receptive to session and indicated connecting with topic of goal setting. She took on a mostly passive participatory role as CLient is still new to IOP program and is working to gain insight and familiarity with the concept of mental health treatment. Client benefitted from reviewing some of the benefits of setting small goals on improving mental health sx and decreasing depression. CLient appeared to connect most with the idea of breaking down larger obstacle or barriers into smaller tasks so they seem less overwhelming and are mroe easily achieved. CLient did well to increase participation during the activity portion and was able to collaborate with fellow participants on identifying strategies for accomplishing the group's personal goal in completing the task presented. Recommended continued IOP to increase client insight regarding connections between physical and mental health and improve client daily functioning. Eye Contact:: Fair Motor Activity:: Appropriate Appearance:: Casual Speech:: Soft Mood:: Anxious, Depressed Affect:: Constricted Thoughts:: Linear, Logical, No evidence of hallucinations/delusions noted Staff Interventions:: Therapist facilitated group discussion about goals, potential mental health benefits of setting and working towards achieving goals , and means for goal setting. Therapist taught group the acronym SMART (Specific , Measurable, Achievable, Realistic, Timely) as a tool to help with goal setting. Therapist led the group in an activity to be used as a method of practicing goal setting. Therapist provided the group with a small beach ball and explained their goal was to keep the ball in the air for as long as possible. Therapist guided the group through the SMART acronym as group was participating in activity. Psychotherapy Session #3 Date Open:: 03/09/18 Time Started:: 11:13 Time Stopped:: 12:03 Targeted Problem #:: 1 Type of Group:: Functional Skills Development - 5 participants Goal of Group:: The goal of group was to identify a goal for the week, explore ways to make goal follow SMART goal setting guidelines, identify the potential barriers to achieving that set goal, and identify strategies to overcome barriers. Client Response/Progress/Benefit:: Client remained willing to participate in group and receptive of information discussed. SHe continues to take on a passive role as client appears to have limited insight regarding mental health and the various factors contributing to her ongoing depressive sx. Client had difficulties in identifying a SMART goal for improving overall mental health symptoms and shared believing that there is nothing to help with my health so I don't really have a goal for medication not working. Client benefitted from discussing how making the efforts to keep trying is a step towards improving mental health. She identified the goal of continuing to try new attending IOP group 2x a week. Client recommended continued IOP to identify strategies for coping with loss of indepedence related to physical health issues and improving client use of healthy skills for managing depressive sx. Eye Contact:: Fair Motor Activity:: Appropriate Appearance:: Casual Speech:: Soft Mood:: Anxious, Depressed Affect:: Constricted Thoughts:: Linear, Logical, No evidence of hallucinations/delusions noted Staff Interventions:: Therapist explained goal setting activity to group. Therapist provided each group member with a piece of paper and asked them to write down a goal they would like to accomplish over the weekend. Therapist then asked each member to draw a path to their goal and identify barriers that could potentially get in the way of their goal. Therapist led group in processing their goal maps and had them come up with strategies to overcome the barriers. Therapist provided support by using reflective listening.
--- NOTE | 2018-03-20 17:23 | BH.DS ---
Discharge Summary - Demographics Date of Admission:: 03/07/18 Discharge Date: 03/20/18 Presenting Problems at Admission:: Patient is a 72-year-old female referred by Dr. Angel to the behavioral medicine [facility] for evaluation and treatment of depression and anxiety. Patient reports intermittent depression and anxiety for the past 10 years associated with multiple medical issues, most recently exacerbated by increased loss of independance due to worsening physical health related sx. Discharge Diagnoses:: 1 major depressive disorder recurrent moderate F 33.1. 2 anxiety unspecified. 3 severe malnutrition-risk for refeeding syndrome. 4 Chronic respiratory failure with hypoxia Reason for Discharge:: Due to the extent of Client medical conditions she is unable to attend group on a regular basis and therefore no longer meets treatment criteria. Client encouraged to return to [facility] program following increased medical stability. - Treatment Progress During Treatment & Response: Limited progress able to be made as CLient was only able to attend 2 days of group sessions due to medical instability. Client appeared to respond well when in attendance, was engaged in both the discussion and activity portions of the group, and expressed benefitting from the supportive group environment. Issues Still to be Addressed:: Client continues displaying difficulties with onging symptoms of depression related to loss of independence and changes in role. She additionally expressed increased feelings of guilt, worthlessness, and hopelessness associated with her current medical condition and need for increased support. Client would benefit from outpatient counseling regarding depression and anxieties related to loss of physical abilities as well as focus on increasing consistency of healthy coping skills and thought challenging in daily life. Discharge Recommendations/Instructions:: Client encouraged to follow up with outpatient counseling services and support groups. She was given information on local resources available Discharge Handout: Complete Discharge Handout with client on aftercare options and continuity of care.
--- NOTE | 2018-03-22 17:36 | BH.DS_ITS ---
Discharge Summary - Demographics Date of Admission:: 03/07/18 Discharge Date: 03/20/18 Presenting Problems at Admission:: Patient is a 72-year-old female referred by Dr. Angel to the behavioral medicine [facility] for evaluation and treatment of depression and anxiety. Patient reports intermittent depression and anxiety for the past 10 years associated with multiple medical issues, most recently exacerbated by increased loss of independance due to worsening physical health related sx. Discharge Diagnoses:: 1 major depressive disorder recurrent moderate F 33.1. 2 anxiety unspecified. 3 severe malnutrition-risk for refeeding syndrome. 4 Chronic respiratory failure with hypoxia Reason for Discharge:: Due to the extent of Client medical conditions she is unable to attend group on a regular basis and therefore no longer meets treatment criteria. Client encouraged to return to [facility] program following increased medical stability. - Treatment Progress During Treatment & Response: Limited progress able to be made as CLient was only able to attend 2 days of group sessions due to medical instability. Client appeared to respond well when in attendance, was engaged in both the discussion and activity portions of the group, and expressed benefitting from the supportive group environment. Issues Still to be Addressed:: Client continues displaying difficulties with onging symptoms of depression related to loss of independence and changes in role. She additionally expressed increased feelings of guilt, worthlessness, and hopelessness associated with her current medical condition and need for increased support. Client would benefit from outpatient counseling regarding depression and anxieties related to loss of physical abilities as well as focus on increasing consistency of healthy coping skills and thought challenging in daily life. Discharge Recommendations/Instructions:: Client encouraged to follow up with outpatient counseling services and support groups. She was given information on local resources available Discharge Handout: Complete Discharge Handout with client on aftercare options and continuity of care.
== END 2018-03-11 23:59 ==
LOC: BHIOP 09:00
PROVIDERS: Family Provider Family Medicine; PCP Family Medicine; Visit Provider Psychiatry & Neurology Psychiatry
DX: F33.1 Major depressive disorder, recurrent, moderate (principal); F41.9 Anxiety disorder, unspecified; E43 Unspecified severe protein-calorie malnutrition; J44.9 Chronic obstructive pulmonary disease, unspecified; J96.11 Chronic respiratory failure with hypoxia; Z99.81 Dependence on supplemental oxygen; I48.91 Unspecified atrial fibrillation
CPT/HCPCS: 36415; 80048; 83735; 84100; H0035; 90853

== ENCOUNTER → 2018-03-07 12:32 | Outpatient (CLI) | payer MEDICARE, OTHER, SELFPAY ==
[2018-03-07 14:32] LABS: Anion Gap 7 (5-15); BUN 11 mg/dL (7-18); BUN/Creat Ratio 19.7 RATIO (10-20); Calcium,Total 9.6 mg/dL (8.5-10.1); Chloride 97 mmol/L (98-107); Creatinine, Serum 0.56 mg/dL (0.55-1.02); EST Glomerular Filtration Rate 113 mL/min (>60); Est Glom Filt Rate - Afr Amer 137 mL/min (>60); Glucose 79 mg/dL (74-106); Magnesium 2.1 mg/dL (1.6-2.6); Phosphorus 3.6 mg/dL (2.5-4.9); Potassium 4.7 mmol/L (3.5-5.1); Sodium Level 137 mmol/L (136-145)
== END ==
PROVIDERS: Family Provider Family Medicine; PCP Family Medicine; Visit Provider Psychiatry & Neurology Psychiatry
DX: Z79.899 Other long term (current) drug therapy (principal)
CPT/HCPCS: 36415; 80048; 83735; 84100

== ENCOUNTER 2018-03-18 12:30 | Emergency (ER) | payer MEDICARE, OTHER, SELFPAY ==
[2018-03-18 12:31] VITALS: BP 135/79; PULSE 102; RESP 22; TEMP 36.7; O2SAT 97; BMI 15.6
--- NOTE | 2018-03-18 12:55 | EKG12_ITS ---
Test Reason : GENILLNESS Blood Pressure : / mmHG Vent. Rate : 086 BPM Atrial Rate : 105 BPM P-R Int : 000 ms QRS Dur : 100 ms QT Int : 350 ms P-R-T Axes : 000 181 061 degrees QTc Int : 418 ms Atrial fibrillation Abnormal ECG Confirmed by LIDA GERARD MD ([id number]), editor in chief CRISTIAN CAMARA ([id number] on 03/20/2018 3:04:02 PM Referred By: FAINA Confirmed By:LIDA GERARD MD
--- NOTE | 2018-03-18 13:14 | RAD_ITS ---
STUDY: X-RAY CHEST REASON FOR EXAM: Female, 72 years old. Shortness of breath TECHNIQUE: Single view of the chest was obtained COMPARISON: February 07, 2018 CTA chest FINDINGS: Redemonstration of right apical bullous changes with scarring. Mild bullous changes in the left lung apex also seen. Chronic size appears enlarged. Increased reticular markings seen bilaterally. Likely bronchiectasis in the right lung with cavitation in the right lung apex. Post treatment changes in the right lung also seen. There are likely bronchiectasis in the left lung. Pleural thickening versus small right-sided pleural effusion. Aortic tortuosity. Enlargement of the aortic knob similar to previous exam. IMPRESSION: No significant change in overall lung finding since previous examination. Electronically Signed: Jovanny Vital, at 13:37 EDT Tel , Service support , RAD/Chest 1 View (Portable)
[2018-03-18 13:48] LABS: Absolute Lymphocyte Count 0.73 X10^3/ul (0.83-4.51); Absolute Neutrophil Count 6.1 X10^3/uL (2.0-7.7); Basophil# 0.01 X10^3/uL; Basophil% 0.1 % (0-1); Eosinophil# 0.02 X10^3/uL; Eosinophils% 0.3 % (0-5); Hematocrit 37.5 % (37-47); Hemoglobin 11.6 g/dl (12.0-15.0); Lymphocyte # 0.73 X10^3/ul (4.0); Lymphocyte % 9.9 % (19-41); Mean Corp Hgb Conc 30.9 g/gl (32-36); Mean Corpuscular Hgb 27.1 pg (27.0-32.0); Mean Corpuscular Volume 87.6 fL (81-99); Mean Platelet Vol. 11.2 fl (6.2-12.0); Monocyte# 0.45 X10^3/uL; Monocyte% 6.1 % (0-10); Neutrophil # 6.12 X10^3/uL (2.7-7.7); Neutrophil % 83.5 % (47-70); Platelet Count 158 K/mm3 (150-450); RBC Distribution Width CV 14.7 % (11.6-14.6); Red Blood Count 4.28 M/mm3 (4.2-5.4); White Blood Count 7.3 K/mm3 (4.4-11.0)
[2018-03-18 13:49] LABS: POSITIVE COUNT NO; POSITIVE DIFFERENTIAL NO; POSITIVE MORPHOLOGY NO
[2018-03-18 14:06] LABS: Anion Gap 5 (5-15); BUN 12 mg/dL (7-18); BUN/Creat Ratio 21.1 RATIO (10-20); Chloride 100 mmol/L (98-107); Creatinine, Serum 0.57 mg/dL (0.55-1.02); EST Glomerular Filtration Rate 110 mL/min (>60); Est Glom Filt Rate - Afr Amer 133 mL/min (>60); Estimated Creatinine Clearance 34.28 ml/min; Glucose 133 mg/dL (74-106); Potassium 5.1 mmol/L (3.5-5.1); Sodium Level 135 mmol/L (136-145); Thyroid Stim Hormone (TSH) 1.03 uIU/mL (0.358-3.74)
[2018-03-18 14:13] LABS: Lactic Acid 0.9 mmol/L (0.4-2.0)
[2018-03-18 14:35] VITALS: BP 105/58; PULSE 106; RESP 24; O2SAT 100
[2018-03-18 15:11] LABS: Mucous, Urine 0 SEEN /hpf (<or=2+); Squamous Epithelial Cells - UA 0 SEEN /hpf (5-10)
[2018-03-18 15:21] LABS: Color, Urine Yellow (Yellow); Glucose, Dipstick Normal (Normal); Ketone-Dipstick Negative (Negative); Leukocyte Esterase-Dipstick 25 /ul (Negative); Nitrite-Dipstick Negative (Negative); Occult Blood-Urine Negative /ul (Negative); Protein-Dipstick Negative (Negative); Specific Gravity, Urine 1.015 (1.002-1.030); Urine Bilirubin Dipstick Negative (Negative); Urine Clarity Sl. Cloudy (Clear); Urine Urobilinogen Normal (Normal)
[2018-03-18 15:30] VITALS: BP 143/90; PULSE 108; RESP 24; O2SAT 100
[2018-03-18 15:42] LABS: White Blood Cells 0-5 SEEN /hpf (0-5)
[2018-03-18 15:43] LABS: Amorphous Sediment 2+; Bacteria 1+ /hpf (None Seen); Red Blood Cells-Urine 0-5 SEEN /hpf (0-5)
[2018-03-18 16:00] VITALS: BP 162/92; PULSE 113; RESP 23; O2SAT 100
[2018-03-18] MEDS: dilTIAZem 25 MG/5 ML Vial 10 MG IV BOLUS (16:31)
[2018-03-18] MEDS: 0.9% Normal Saline 1,000 ML 150 ML IV (16:32)
[2018-03-18 16:33] VITALS: BP 157/73; PULSE 101; RESP 21; O2SAT 100
--- NOTE | 2018-03-18 16:47 | ED.VISSUMM ---
- ER Visit Summary Date of Service: 03/18/18 Chief Complaint: Not feeling well History of Present Illness: The patient is a 72 F who states that she overall just does not feel well. This is been ongoing for some time. Patient states she has had increased fatigue. In the morning she tends to feel somewhat nauseated. She was seen by her PCP 2 days ago. She was given Keflex for possible infection around her feeding tube. She states this is not made a difference in how she feels. She denies any pain anywhere. She has chronic shortness of breath and wears home O2. She also has a history of atrial fibrillation, pulmonary hypertension, depression, and COPD. Physical Examination: Blood pressure is 135/79, temperature 98.1, heart rate 102, respiratory rate 22, pulse ox 97% on 2 L nasal cannula. Patient sitting upright in bed in no acute distress. She is nontoxic appearing. Head and neck examination unremarkable. Heart is irregular. Lung sounds are clear. Abdomen is soft and nontender. Feeding tube is in place. There is no surrounding erythema. Neuro exam reveals no focal deficits. Test Results: Portable chest x-ray reveals chronic changes unchanged from prior. EKG is A. fib at 86 with no sign of acute ischemia. CBC was normal white count with hemoglobin 11.6. Chemistry studies unremarkable. Urinalysis unremarkable. Lactate normal. Blood cultures were sent. TSH is checked and normal. Emergency Department Course and Treatment: Patient was given IV fluids. On repeat evaluation heart rate is ranging 105-120. Systolic blood pressures in the 140s. She is given 10 mg of IV Cardizem. Heart rate is improved to the 80s-90s. Patient states that she checks her vital signs regularly. Her heart rate is usually in the 90s. At this time I do not have anything specific to offer in the hospital. I been able to reassure her that her electrolytes are normal and she shows no sign of dehydration. She will continue to monitor vital signs at home and keep a log of them, along with how she feels at the time. She will take this to her next doctor's appointments. Treatment Plan: [] Disposition: Discharge Impression: 1. Fatigue 2. Chronic A. fib This note was generated with [employer]wl[employer] ???ation software. It may contain incorrect words, spelling, and punctuation that were not noted in review of the chart prior to signing ED Disposition - Plan for ED Patient: Disposition: Home or Assisted Living Chief Complaint: General Illness Instructions: ED Weakness [facility] Referrals: Segundo Welsh MD [STAFF PHYSICIAN] - Christo Wilde MD [Primary Care Provider] - Additional Instructions: As discussed, keep log of your vital signs and how you feel at the time. Take this to your next doctor's appointments.
--- NOTE | 2018-03-18 16:49 | ED.DEP ---
ED Disposition - Plan for ED Patient: Disposition: Home or Assisted Living Chief Complaint: General Illness Instructions: ED Weakness [facility] Referrals: Christo Wilde MD [Primary Care Provider] - Segundo Welsh MD [STAFF PHYSICIAN] - Additional Instructions: As discussed, keep log of your vital signs and how you feel at the time. Take this to your next doctor's appointments.
[2018-03-18 17:18] VITALS: BP 138/85; PULSE 98; RESP 16; O2SAT 100
== END 2018-03-18 17:24 | disposition home or self-care (01) ==
PROVIDERS: Emergency Provider Emergency Medicine; Family Provider Family Medicine; PCP Family Medicine
DX: R53.83 Other fatigue (principal); I48.2 Chronic atrial fibrillation; I27.20 Pulmonary hypertension, unspecified; F32.9 Major depressive disorder, single episode, unspecified; J44.9 Chronic obstructive pulmonary disease, unspecified; Z99.81 Dependence on supplemental oxygen; Z79.01 Long term (current) use of anticoagulants; Z79.899 Other long term (current) drug therapy
CPT/HCPCS: 71045; 80048; 81001; 83605; 84443; 85025; 87040; 93005; 96361; 96374; 99285; J7030; J7040; A4216

== ENCOUNTER 2018-03-21 10:26 | Emergency (ER) | payer MEDICARE, OTHER, SELFPAY ==
[2018-03-21] VITALS (8 sets, daily range): BP systolic 112–151; BP diastolic 73–87; PULSE 80–132; RESP 17–24; TEMP 36.7–37; O2SAT 98–100; BMI 14.5
--- NOTE | 2018-03-21 10:47 | EKG12_ITS ---
Test Reason : GEN ILLNESS Blood Pressure : / mmHG Vent. Rate : 123 BPM Atrial Rate : 082 BPM P-R Int : 000 ms QRS Dur : 090 ms QT Int : 324 ms P-R-T Axes : 000 229 054 degrees QTc Int : 463 ms Atrial fibrillation Abnormal ECG Confirmed by RAJANI VERAS, LIDA ([id number]), industrial editor CRISTIAN CAMARA ([id number]) on 03/23/2018 1:47:08 PM Referred By: SURENDRA Confirmed By:LIDA GERARD MD
--- NOTE | 2018-03-21 10:49 | ED.VISSUMM ---
- ER Visit Summary Date of Service: 03/21/18 Chief Complaint: Weakness and fatigue History of Present Illness: The patient is a 72 F who presents for weakness and fatigue for 2 weeks. Patient states that she has not felt well for the last 2 weeks and has an infection of her PEG site. She had a positive culture from by her primary care doctor come back from the site yesterday and was started on Cipro. She has had 2 doses. She states she has lost several pounds in the last 2 weeks because she can only take 2 or 3 bites of food at a time and then is full. She has very little energy or appetite. She has chronic shortness of breath but it is worse over the last 2 weeks, with decreased exercise tolerance. Patient is on oxygen at all times. Denies fever, chest pain. Medical history remarkable for chronic lung disease, feeding tube in place for supplemental feeding. Physical Examination: Vital signs: afebrile, hemodynamically stable, tachycardic, tachypneic, on nasal cannula General: Cachectic, nontoxic appearing, but looks like she does not feel well Skin: warm, dry, no rash, no pallor HEENT: normocephalic and atraumatic; PERRL, EOMI, moist mucous membranes Cardiovascular: Tachycardic rate and irregular rhythm without murmurs, no peripheral edema, 2+ pulses all distal extremities Respiratory: Mild increased work of breathing, tachypnea, lungs show diffuse rales. Abdominal: Abdomen is soft, nontender with normoactive bowel sounds, no guarding or rebound, no masses, PEG tube in place with moist granulation tissue, small amount of white exudate coming from the stoma, no induration or erythema at the site MSK: Moves all extremities, no deformities, generalized weakness Neuro: Awake and alert, oriented ?4. No facial droop, sensation and motor function intact and symmetric Test Results: Abnormal Lab Results 03/21/18 03/21/18 03/21/18 11:17 11:17 11:17 WBC 6.0 RBC 4.28 Hgb 11.6 L Hct 37.2 MCV 86.9 MCH 27.1 MCHC 31.2 L RDW 14.6 RDW Differential 46.3 H Plt Count 161 MPV 10.7 Immature Gran % (Auto) 0.000 Neut % (Auto) 80.2 H Lymph % (Auto) 11.3 L [place] % (Auto) 7.5 Eos % (Auto) 1.0 Baso % (Auto) 0.0 Absolute Neuts (auto) 4.8 Absolute Lymphs (auto) 0.68 L Total Counted Not Reportable PT 15.9 H INR 1.3 APTT 33.8 Sodium 135 L Potassium 4.2 Chloride 99 Carbon Dioxide 28.0 Anion Gap 8 BUN 9 Creatinine 0.55 Estim Creat Clear Calc 31.81 Est GFR (MDRD) Af Amer 139 Est GFR (MDRD) Non-Af 115 BUN/Creatinine Ratio 16.4 Glucose 111 H Lactic Acid Calcium 8.7 Total Bilirubin 0.50 AST 52 H ALT 51 Alkaline Phosphatase 356 H Troponin I < 0.015 Total Protein 7.9 Albumin 3.3 Globulin 4.6 H Albumin/Globulin Ratio 0.7 L Urine Color Urine Clarity Urine pH Ur Specific [place] Urine Protein Urine Glucose (UA) Urine Ketones Urine Occult Blood Urine Nitrite Urine Bilirubin Urine Urobilinogen Ur Leukocyte Esterase Urine RBC Urine WBC Ur Squamous Epith Cells Urine Bacteria Urine Mucus 03/21/18 03/21/18 11:17 13:10 WBC RBC Hgb Hct MCV MCH MCHC RDW RDW Differential Plt Count MPV Immature Gran % (Auto) Neut % (Auto) Lymph % (Auto) [place] % (Auto) Eos % (Auto) Baso % (Auto) Absolute Neuts (auto) Absolute Lymphs (auto) Total Counted PT INR APTT Sodium Potassium Chloride Carbon Dioxide Anion Gap BUN Creatinine Estim Creat Clear Calc Est GFR (MDRD) Af Amer Est GFR (MDRD) Non-Af BUN/Creatinine Ratio Glucose Lactic Acid 1.4 Calcium Total Bilirubin AST ALT Alkaline Phosphatase Troponin I Total Protein Albumin Globulin Albumin/Globulin Ratio Urine Color Yellow Urine Clarity Clear Urine pH 8.0 Ur Specific [place] 1.010 Urine Protein Negative Urine Glucose (UA) Normal Urine Ketones Negative Urine Occult Blood Negative Urine Nitrite Negative Urine Bilirubin Negative Urine Urobilinogen Normal Ur Leukocyte Esterase Negative Urine RBC 0 SEEN Urine WBC 0 SEEN Ur Squamous Epith Cells 0-5 SEEN Urine Bacteria RARE Urine Mucus 0 SEEN Clinical Impression(s) from Imaging Studies Chest X-Ray 03/21/18 11:22 IMPRESSION: Stable examination. Bullous change in the right lung apex with chronic scarring in the right lung and left lung apex. Electronically Signed: Tanner Romo MD at 12:03 EDT Tel [phone], Service support , Emergency Department Course and Treatment: Patient presents with general malaise and weakness, acute on chronic shortness of breath, and concern for infection of her PEG site, for which she is currently on antibiotics. Given the patient is tachycardic at presentation and complaining of concern for infection, sepsis workup was performed. Patient had no leukocytosis, no significant anemia, no significant electrolyte derangements, urine negative for infection, normal lactate. Chest x-ray showed chronic changes but no acute infiltrates or effusions. Patient received IV hydration. She was discussed with her primary care doctor, Dr. Wilde, who reviewed her culture results and states that she had seen him because she was concerned for infection at the PEG site. A culture taken of the PEG site was positive for Pseudomonas, that she was started on Cipro. She has only been on it for 24 hours, and thus it is too early to declare outpatient treatment failure. Patient does have A. fib with RVR on her EKG, which is a recurrent issue for her. She is on Cardizem at home. She was given a dose of IV Cardizem with improvement in her heart rate, and return to a normal heart rate after a second bolus dose. Patient was given an oral dose of her home Cardizem. She did not feel any different with the heart rate control. There is no indication for admission at this time, as patient is well-appearing and has no obvious signs of an infection that would require IV antibiotics or inpatient management. Patient is to follow-up with her primary care physician. She was discharged home. Treatment Plan: [] Disposition: [] Impression: A. fib with RVR, recurrent Generalized weakness Failure to thrive Pseudomonas infection of PEG tube This note was generated with sourceasy dictation software. It may contain incorrect words, spelling, and punctuation that were not noted in review of the chart prior to signing ED Disposition - Plan for ED Patient: Disposition: Home or Assisted Living Chief Complaint: General Illness Instructions: ED Afib, ED Weakness [facility] Referrals: Christo Wilde MD [Primary Care Provider] - 1-2 Days if not improving Additional Instructions: Please continue your ciprofloxacin prescription as prescribed by Dr. Wilde. Continue your medications for atrial fibrillation. Follow-up with your primary care doctor within the next 1-2 days for repeat evaluation of your weakness, fatigue and decreased appetite. If you have any worsening of your condition or any new concerning symptoms, please return immediately to the emergency department for another evaluation.
--- NOTE | 2018-03-21 10:52 | ED.DCSUM_ITS ---
- ER Visit Summary Date of Service: 03/21/18 Chief Complaint: Weakness and fatigue History of Present Illness: The patient is a 72 F who presents for weakness and fatigue for 2 weeks. Patient states that she has not felt well for the last 2 weeks and has an infection of her PEG site. She had a positive culture from by her primary care doctor come back from the site yesterday and was started on Cipro. She has had 2 doses. She states she has lost several pounds in the last 2 weeks because she can only take 2 or 3 bites of food at a time and then is full. She has very little energy or appetite. She has chronic shortness of breath but it is worse over the last 2 weeks, with decreased exercise tolerance. Patient is on oxygen at all times. Denies fever, chest pain. Medical history remarkable for chronic lung disease, feeding tube in place for supplemental feeding. Physical Examination: Vital signs: afebrile, hemodynamically stable, tachycardic, tachypneic, on nasal cannula General: Cachectic, nontoxic appearing, but looks like she does not feel well Skin: warm, dry, no rash, no pallor HEENT: normocephalic and atraumatic; PERRL, EOMI, moist mucous membranes Cardiovascular: Tachycardic rate and irregular rhythm without murmurs, no peripheral edema, 2+ pulses all distal extremities Respiratory: Mild increased work of breathing, tachypnea, lungs show diffuse rales. Abdominal: Abdomen is soft, nontender with normoactive bowel sounds, no guarding or rebound, no masses, PEG tube in place with moist granulation tissue , small amount of white exudate coming from the stoma, no induration or erythema at the site MSK: Moves all extremities, no deformities, generalized weakness Neuro: Awake and alert, oriented ?4. No facial droop, sensation and motor function intact and symmetric Test Results: Abnormal Lab Results 03/21/18 03/21/18 03/21/18 11:17 11:17 11:17 WBC 6.0 RBC 4.28 Hgb 11.6 L Hct 37.2 MCV 86.9 MCH 27.1 MCHC 31.2 L RDW 14.6 RDW Differential 46.3 H Plt Count 161 MPV 10.7 Immature Gran % (Auto) 0.000 Neut % (Auto) 80.2 H Lymph % (Auto) 11.3 L [place] % (Auto) 7.5 Eos % (Auto) 1.0 Baso % (Auto) 0.0 Absolute Neuts (auto) 4.8 Absolute Lymphs (auto) 0.68 L Total Counted Not Reportable PT 15.9 H INR 1.3 APTT 33.8 Sodium 135 L Potassium 4.2 Chloride 99 Carbon Dioxide 28.0 Anion Gap 8 BUN 9 Creatinine 0.55 Estim Creat Clear Calc 31.81 Est GFR (MDRD) Af Amer 139 Est GFR (MDRD) Non-Af 115 BUN/Creatinine Ratio 16.4 Glucose 111 H Lactic Acid Calcium 8.7 Total Bilirubin 0.50 AST 52 H ALT 51 Alkaline Phosphatase 356 H Troponin I < 0.015 Total Protein 7.9 Albumin 3.3 Globulin 4.6 H Albumin/Globulin Ratio 0.7 L Urine Color Urine Clarity Urine pH Ur Specific [place] Urine Protein Urine Glucose (UA) Urine Ketones Urine Occult Blood Urine Nitrite Urine Bilirubin Urine Urobilinogen Ur Leukocyte Esterase Urine RBC Urine WBC Ur Squamous Epith Cells Urine Bacteria Urine Mucus 03/21/18 03/21/18 11:17 13:10 WBC RBC Hgb Hct MCV MCH MCHC RDW RDW Differential Plt Count MPV Immature Gran % (Auto) Neut % (Auto) Lymph % (Auto) [place] % (Auto) Eos % (Auto) Baso % (Auto) Absolute Neuts (auto) Absolute Lymphs (auto) Total Counted PT INR APTT Sodium Potassium Chloride Carbon Dioxide Anion Gap BUN Creatinine Estim Creat Clear Calc Est GFR (MDRD) Af Amer Est GFR (MDRD) Non-Af BUN/Creatinine Ratio Glucose Lactic Acid 1.4 Calcium Total Bilirubin AST ALT Alkaline Phosphatase Troponin I Total Protein Albumin Globulin Albumin/Globulin Ratio Urine Color Yellow Urine Clarity Clear Urine pH 8.0 Ur Specific [place] 1.010 Urine Protein Negative Urine Glucose (UA) Normal Urine Ketones Negative Urine Occult Blood Negative Urine Nitrite Negative Urine Bilirubin Negative Urine Urobilinogen Normal Ur Leukocyte Esterase Negative Urine RBC 0 SEEN Urine WBC 0 SEEN Ur Squamous Epith Cells 0-5 SEEN Urine Bacteria RARE Urine Mucus 0 SEEN Clinical Impression(s) from Imaging Studies Chest X-Ray 03/21/18 11:22 IMPRESSION: Stable examination. Bullous change in the right lung apex with chronic scarring in the right lung and left lung apex. Electronically Signed: Tanner Romo MD at 12:03 EDT Tel [phone], Service support , Emergency Department Course and Treatment: Patient presents with general malaise and weakness, acute on chronic shortness of breath, and concern for infection of her PEG site, for which she is currently on antibiotics. Given the patient is tachycardic at presentation and complaining of concern for infection, sepsis workup was performed. Patient had no leukocytosis, no significant anemia, no significant electrolyte derangements, urine negative for infection, normal lactate. Chest x-ray showed chronic changes but no acute infiltrates or effusions. Patient received IV hydration. She was discussed with her primary care doctor, Dr. Wilde, who reviewed her culture results and states that she had seen him because she was concerned for infection at the PEG site. A culture taken of the PEG site was positive for Pseudomonas, that she was started on Cipro. She has only been on it for 24 hours, and thus it is too early to declare outpatient treatment failure. Patient does have A. fib with RVR on her EKG, which is a recurrent issue for her. She is on Cardizem at home. She was given a dose of IV Cardizem with improvement in her heart rate, and return to a normal heart rate after a second bolus dose. Patient was given an oral dose of her home Cardizem. She did not feel any different with the heart rate control. There is no indication for admission at this time, as patient is well-appearing and has no obvious signs of an infection that would require IV antibiotics or inpatient management. Patient is to follow-up with her primary care physician. She was discharged home. Treatment Plan: [] Disposition: [] Impression: A. fib with RVR, recurrent Generalized weakness Failure to thrive Pseudomonas infection of PEG tube This note was generated with [employer] dictation software. It may contain incorrect words, spelling, and punctuation that were not noted in review of the chart prior to signing ED Disposition - Plan for ED Patient: Disposition: Home or Assisted Living Chief Complaint: General Illness Instructions: ED Afib, ED Weakness [facility] Referrals: Christo Wilde MD [Primary Care Provider] - 1-2 Days if not improving Additional Instructions: Please continue your ciprofloxacin prescription as prescribed by Dr. Wilde. Continue your medications for atrial fibrillation. Follow-up with your primary care doctor within the next 1-2 days for repeat evaluation of your weakness, fatigue and decreased appetite. If you have any worsening of your condition or any new concerning symptoms, please return immediately to the emergency department for another evaluation.
[2018-03-21] MEDS: Lactated Ringers 1,000 ML 250 ML IV (11:20)
--- NOTE | 2018-03-21 11:22 | RAD_ITS ---
STUDY: X-RAY CHEST REASON FOR EXAM: Female, 72 years old. Tachypnea. TECHNIQUE: Single AP portable view of the chest. COMPARISON: Comparison is made with prior study dated March 18, 2018. FINDINGS: EKG electrodes are seen. Hyperinflation. Stable 9.6 cm x 7.5 cm bullous change in the right lung apex. Volume loss in the right hemithorax with stable increased markings in the right lung suggestive of scarring. Stable reticular nodular pattern in the left lung apex. Blunting of the right costophrenic angle. Normal size heart. Normal mediastinum and lindsey. Normal visualized pulmonary arteries. There is atherosclerotic tortuosity of the aortic arch and descending thoracic aorta. Normal visualized thoracic spine. Normal visualized ribs, clavicles, and shoulders. There is no demonstrated abnormality of the visualized soft tissue structures of the upper abdomen. RAD/Chest 1 View (Portable) IMPRESSION: Stable examination. Bullous change in the right lung apex with chronic scarring in the right lung and left lung apex. Electronically Signed: Tanner Romo MD at 12:03 EDT Tel [phone], Service support ,
[2018-03-21 11:35] LABS: Absolute Lymphocyte Count 0.68 X10^3/ul (0.83-4.51); Absolute Neutrophil Count 4.8 X10^3/uL (2.0-7.7); Eosinophil# 0.06 X10^3/uL; Hematocrit 37.2 % (37-47); Hemoglobin 11.6 g/dl (12.0-15.0); Lymphocyte # 0.68 X10^3/ul (4.0); Lymphocyte % 11.3 % (19-41); Mean Corp Hgb Conc 31.2 g/gl (32-36); Mean Corpuscular Hgb 27.1 pg (27.0-32.0); Mean Corpuscular Volume 86.9 fL (81-99); Mean Platelet Vol. 10.7 fl (6.2-12.0); Monocyte# 0.45 X10^3/uL; Monocyte% 7.5 % (0-10); Neutrophil # 4.84 X10^3/uL (2.7-7.7); Neutrophil % 80.2 % (47-70); POSITIVE COUNT NO; POSITIVE DIFFERENTIAL NO; POSITIVE MORPHOLOGY NO; Platelet Count 161 K/mm3 (150-450); RBC Distribution Width CV 14.6 % (11.6-14.6); RBC Distribution Width SD 46.3 fl (35.1-43.9); Red Blood Count 4.28 M/mm3 (4.2-5.4)
[2018-03-21 11:38] LABS: International Normalized Ratio 1.3; Prothrombin Time (Protime)PT. 15.9 SECONDS (11.7-14.9)
[2018-03-21 11:39] LABS: Partial Thromboplast Time 33.8 Seconds (24.1-36.2)
[2018-03-21 11:57] LABS: ALB/GLOB Ratio 0.7 RATIO (0.9-2.4); AST(SGOT) 52 U/L (15-37); Alanine Aminotransfer ALT/SGPT 51 U/L (13-56); Albumin, Serum 3.3 g/dL (3.2-5.0); Alkaline Phosphatase 356 U/L (45-117); Anion Gap 8 (5-15); BUN 9 mg/dL (7-18); BUN/Creat Ratio 16.4 RATIO (10-20); Calcium,Total 8.7 mg/dL (8.5-10.1); Chloride 99 mmol/L (98-107); Creatinine, Serum 0.55 mg/dL (0.55-1.02); EST Glomerular Filtration Rate 115 mL/min (>60); Est Glom Filt Rate - Afr Amer 139 mL/min (>60); Estimated Creatinine Clearance 31.81 ml/min; Globulin 4.6 g/dL (2.2-4.2); Glucose 111 mg/dL (74-106); Potassium 4.2 mmol/L (3.5-5.1); Protein, Total 7.9 g/dL (6.4-8.2); Sodium Level 135 mmol/L (136-145)
[2018-03-21 12:14] LABS: Lactic Acid 1.4 mmol/L (0.4-2.0)
[2018-03-21 13:18] LABS: Mucous, Urine 0 SEEN /hpf (<or=2+); Red Blood Cells-Urine 0 SEEN /hpf (0-5); White Blood Cells 0 SEEN /hpf (0-5)
[2018-03-21 13:19] LABS: Color, Urine Yellow (Yellow); Glucose, Dipstick Normal (Normal); Ketone-Dipstick Negative (Negative); Leukocyte Esterase-Dipstick Negative /ul (Negative); Nitrite-Dipstick Negative (Negative); Occult Blood-Urine Negative /ul (Negative); Protein-Dipstick Negative (Negative); Urine Bilirubin Dipstick Negative (Negative); Urine Clarity Clear (Clear); Urine Urobilinogen Normal (Normal)
[2018-03-21 13:28] LABS: Bacteria RARE /hpf (None Seen); Squamous Epithelial Cells - UA 0-5 SEEN /hpf (5-10)
--- NOTE | 2018-03-21 13:35 | NURSING ---
PAGING DR TAY
[2018-03-21] MEDS: dilTIAZem 25 MG/5 ML Vial 10 MG IV BOLUS ×2 (14:37→15:32)
[2018-03-21] MEDS: dilTIAZem 60 MG Tablet 120 MG PO (15:32)
--- NOTE | 2018-03-21 16:01 | ED.DEP ---
ED Disposition - Plan for ED Patient: Disposition: Home or Assisted Living Chief Complaint: General Illness Instructions: ED Afib, ED Weakness UKO Referrals: Christo Wilde MD [Primary Care Provider] - 1-2 Days if not improving Additional Instructions: Please continue your ciprofloxacin prescription as prescribed by Dr. Wilde. Continue your medications for atrial fibrillation. Follow-up with your primary care doctor within the next 1-2 days for repeat evaluation of your weakness, fatigue and decreased appetite. If you have any worsening of your condition or any new concerning symptoms, please return immediately to the emergency department for another evaluation.
== END 2018-03-21 16:29 | disposition home or self-care (01) ==
PROVIDERS: Emergency Provider Emergency Medicine; Family Provider Family Medicine; PCP Family Medicine
DX: I48.91 Unspecified atrial fibrillation (principal); R53.1 Weakness; R62.7 Adult failure to thrive; K94.22 Gastrostomy infection; B96.5 Pseudomonas (aeruginosa) (mallei) (pseudomallei) as the cause of diseases classified elsewhere; J96.10 Chronic respiratory failure, unspecified whether with hypoxia or hypercapnia; Z79.01 Long term (current) use of anticoagulants; Z79.899 Other long term (current) drug therapy
CPT/HCPCS: 71045; 80053; 81001; 83605; 84484; 85025; 85610; 85730; 87040; 87086; 87088; 93005; 96361; 96374; 96376; 99285; A4216

== ENCOUNTER → 2018-03-27 16:51 | Outpatient (CLI) | payer MEDICARE, OTHER, SELFPAY | PROVIDERS: Family Provider Family Medicine; PCP Family Medicine; Visit Provider Otolaryngology Otolaryngology/Facial Plastic Surgery | DX: J32.9 Chronic sinusitis, unspecified (principal) | CPT/HCPCS: 87070; 87077; 87186; 87205 ==

== ENCOUNTER 2018-03-30 16:48 | Inpatient (IN) | payer MEDICARE, OTHER, SELFPAY ==
[2018-03-30] VITALS (13 sets, daily range): BP systolic 120–152; BP diastolic 71–105; PULSE 96–108; RESP 16–30; TEMP 36.6–36.9; O2SAT 99–100; BMI 16.4; BMI 15.4
--- NOTE | 2018-03-30 17:19 | EKG12_ITS ---
Test Reason : SOB Blood Pressure : / mmHG Vent. Rate : 103 BPM Atrial Rate : 122 BPM P-R Int : 000 ms QRS Dur : 092 ms QT Int : 306 ms P-R-T Axes : 000 208 055 degrees QTc Int : 400 ms Atrial fibrillation with premature ventricular or aberrantly conducted complexes Abnormal ECG Confirmed by RAJANI VERAS, LIDA ([id number]), commissioning editor CRISTIAN CAMARA ([id number]) on 03/31/2018 1:02:00 PM Referred By: Sabino Boateng Confirmed By:LIDA GERARD MD
[2018-03-30] MEDS: Ipratropium/Albuterol Sulfate 3 ML AMPUL.NEB INHALATION (17:41)
[2018-03-30] MEDS: 0.9% Normal Saline 1,000 ML 150 ML IV (17:41)
[2018-03-30 17:57] LABS: Absolute Lymphocyte Count 1.07 X10^3/ul (0.83-4.51); Absolute Neutrophil Count 4.8 X10^3/uL (2.0-7.7); Basophil# 0.01 X10^3/uL; Basophil% 0.2 % (0-1); Eosinophil# 0.18 X10^3/uL; Eosinophils% 2.8 % (0-5); Hematocrit 41.2 % (37-47); Lymphocyte # 1.07 X10^3/ul (4.0); Lymphocyte % 16.9 % (19-41); Mean Corp Hgb Conc 31.6 g/gl (32-36); Mean Corpuscular Hgb 27.3 pg (27.0-32.0); Mean Corpuscular Volume 86.4 fL (81-99); Monocyte% 4.7 % (0-10); Neutrophil # 4.75 X10^3/uL (2.7-7.7); Neutrophil % 75.1 % (47-70); RBC Distribution Width CV 14.3 % (11.6-14.6); RBC Distribution Width SD 45.2 fl (35.1-43.9); Red Blood Count 4.77 M/mm3 (4.2-5.4); White Blood Count 6.3 K/mm3 (4.4-11.0)
[2018-03-30 17:58] LABS: Differential Indicated SCAN CRITERIA MET; POSITIVE COUNT YES; POSITIVE DIFFERENTIAL NO; POSITIVE MORPHOLOGY NO
[2018-03-30 18:07] LABS: Anion Gap 4 (5-15); BUN 16 mg/dL (7-18); BUN/Creat Ratio 25.6 RATIO (10-20); Calcium,Total 9.1 mg/dL (8.5-10.1); Chloride 101 mmol/L (98-107); Creatinine, Serum 0.62 mg/dL (0.55-1.02); EST Glomerular Filtration Rate 99 mL/min (>60); Est Glom Filt Rate - Afr Amer 120 mL/min (>60); Estimated Creatinine Clearance 35.92 ml/min; Glucose 148 mg/dL (74-106); Potassium 5.3 mmol/L (3.5-5.1); Sodium Level 135 mmol/L (136-145)
--- NOTE | 2018-03-30 18:10 | RAD_ITS ---
STUDY: X-RAY CHEST REASON FOR EXAM: Female, 72 years old. Increasing shortness of breath and feelings of congestion. Recent diagnosis of MRSA and pseudomonas and nasal swab. History of lung disease. TECHNIQUE: PA and lateral views of the chest. The patient again is rotated to the left on the frontal view. COMPARISON: Portable AP upright chest x-ray March 21, 2018; CTA chest/thorax February 07, 2018 FINDINGS: There is hyperinflation of the lungs consistent with chronic obstructive lung disease (COPD). The diffusely prominent reticular interstitial densities and changes of bronchiectasis are also again noted. Occasional punctate nodular densities in the periphery of the left lung also again seen. There is a stable loculated right apical pneumothorax and collapse in the right upper lobe. Surgical clips and possible radiopaque sutures also seen along the margin of the collapsed right upper lobe. There is no demonstrated acute infiltrate or pleural effusion. There is borderline cardiomegaly. Normal mediastinum. There is stable mild cephalad retraction of the lindsey. Normal visualized pulmonary arteries allowing for the interstitial prominence noted above. Normal visualized aortic arch and descending thoracic aorta. Normal visualized thoracic spine. Normal visualized ribs, clavicles, and shoulders. There is no demonstrated abnormality of the visualized soft tissue structures of the upper abdomen. RAD/Chest PA and Lateral IMPRESSION: Stable x-ray examination of the chest since March 21, 2018, as described above. Electronically Signed: Florentino Winn MD at 19:07 EDT , Service support ,
--- NOTE | 2018-03-30 18:18 | ED.RN ---
STAFF AT DR SERRANO'S OFFICE CALLED PRIOR TO PT ARRIVAL. ADVISED PT POSITIVE FOR MRSA AND PSEUDOMONA IN NASAL SWAB. WANTED PT EVALUATED IN ER, STARTED ON ATBS AND EVALUATED BY INFECTIOUS DISEASE. DR SERRANO WAS AFRAID IF PT DID NOT COME IN IMMEDIATELY SHE WOULD END UP IN ICU IN RESP DISTRESS D/T PAST MEDICAL HISTORY.
[2018-03-30 18:22] LABS: Differential Comment SCANNED
[2018-03-30 18:23] LABS: Platelet Estimate ADEQUATE (ADEQ)
[2018-03-30 18:44] LABS: BNP,B-Type NATRIURETIC PEPTIDE 126.8 pg/mL (0-100)
--- NOTE | 2018-03-30 20:30 | HP.PCM_ITS ---
Problem List (1) Acute tracheobronchitis Status: Acute (2) Acute bacterial rhinosinusitis Status: Acute (3) Severe protein-calorie malnutrition Status: Acute (4) History of lobectomy of lung Status: Chronic History of Present Illness Date of Admission: 03/30/18 The patient is a 72 year old F with a significant history of hypertension, A. fib, severe sinusitis, COPD, right upper lobectomy, gallbladder surgery a partial thyroidectomy who presents because of progressively worsening dyspnea ? 3 weeks. A nasal swab from an ENT doctor showed MRSA and Pseudomonas and patient was advised to see an infectious disease doctor. The patient presented today emergency department for further evaluation. Associated with her symptoms is night sweats and a feeling of something draining down her throat. Patient has a complicated history of blocked sinus, treated for fungal sinus infections and sinus surgeries. 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 This is not her first MRSA and Pseudomonas respiratory infection. Indeed she reports being admitted in January of this year for the same symptoms. She had blocked airways to the point that she could not swallow and she required a PEG tube. She lost considerable weight because she could not eat. 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) Chronic respiratory failure with hypoxia (Chronic) NEPTALI (obstructive sleep apnea) (Chronic) PND (paroxysmal nocturnal dyspnea) (Chronic) Bronchiectasis (Chronic) Pulmonary hypertension (Chronic) Takotsubo cardiomyopathy (Chronic) EF in August of 2016 was 45-50%, previously 20% Chronic atrial fibrillation (Chronic) Hypomagnesemia (Chronic) Recheck magnesium in 48 hours Medical History: Medical History (Last Reviewed 03/30/18 @ 23:00 by Ludwin Branch MD) PND (paroxysmal nocturnal dyspnea) (Chronic) R06.00 Bronchiectasis (Chronic) J47.9 Pulmonary hypertension (Chronic) I27.2 Takotsubo cardiomyopathy (Chronic) I51.81 EF in August of 2016 was 45-50%, previously 20% Chronic atrial fibrillation (Chronic) I48.2 Hypomagnesemia (Chronic) E83.42 Recheck magnesium in 48 hours Allergies sulfamethoxazole [From Bactrim] Allergy (Verified 03/30/18 16:52) Hives PT STATES NOT ALLERGIC tetracycline Allergy (Verified 03/30/18 16:52) Hives trimethoprim [From Bactrim] Allergy (Verified 03/30/18 16:52) Hives verapamil Allergy (Verified 03/30/18 16:52) Unknown itraconazole Adverse Reaction (Verified 03/30/18 16:52) chest tightness w/ upper and loewr extremity weakness warfarin [From Coumadin] Adverse Reaction (Verified 03/30/18 16:52) gi bleed SODIUM PENTATHOL Allergy (Uncoded 03/30/18 16:52) jaundice/hives JAUNDICE Home Medications: Ambulatory Orders Medication Instructions Recorded Cholecalciferol (Vitamin D3) 2,000 unit PO DAILY 10/30/16 [Vitamin D3] Formoterol Fumarate [Perforomist] 20 mcg INHALATION BID 04/18/17 Calcium Carb/Vitamin D [Os-Zach 1 tab PO BIDCM 12/26/17 500MG + D] Albuterol Inhaler [Ventolin Hfa] 1 - 2 puff INHALATION Q2H PRN PRN 01/24/18 #1 inhaler Budesonide [Pulmicort] 0.25 mg IH BID #60 ampul.neb 01/24/18 Senna/Docusate Sodium [Senokot-S] 2 tab PO BID #120 tab 01/24/18 Famotidine [Pepcid] 40 mg PO DAILY PRN 02/07/18 Iron Polysaccharide Complex 150 mg PO DAILYCM 02/07/18 [Ferrex 150] Jevity 1.5 240 ml GT 0800,1200,1800 02/07/18 Lactobacillus Acidophilus 1 tab PO BID 02/07/18 [Acidophilus] Levothyroxine [Synthroid] 88 mcg GT DAILY@0600 02/07/18 Apixaban [Eliquis] 2.5 mg PO BID 03/21/18 Diltiazem HCl [Diltiazem 24Hr ER] 240 mg PO DAILY 03/21/18 Ferrous Gluconate 325 mg PO BIDCM 03/21/18 Fluticasone 0.05% [Flonase Nasal 2 spray INTRANASAL DAILY PRN PRN 03/21/18 [place]] Guaifenesin [Mucinex] 1,200 mg PO BID PRN PRN 03/21/18 Magnesium Oxide [Mgo] 400 mg PO BID 03/21/18 Mirtazapine [Remeron] 15 mg PO QHS PRN PRN 03/21/18 Multivitamin [Daily Multiple 1 each PO DAILY 03/21/18 Vitamin] Potassium Chloride [K-Dur] 20 meq PO BIDCM 03/21/18 Surgical History: Surgical History (Last Reviewed 03/30/18 @ 23:00 by Ludwin Branch MD) right upper lobe resection Onset Date: ~10/2010 Surgical History: cholecystectomy, hysterectomy, - - Lobectomy for aspergillosis. Psychiatric History: Anxiety LEARNING SUPPORT ASSISTANT History: No pertinent LEARNING SUPPORT ASSISTANT history Lives: Spouse/ Significant Other Smoking Status: Never smoker - *Family History Maternal Family History: Family History (Last Reviewed 03/30/18 @ 23:01 by Ludwin Branch MD) Father Heart disease History Items: No pertinent history Paternal Family History: Family History (Last Reviewed 03/30/18 @ 23:01 by Ludwin Branch MD) Father Heart disease History Items: Cancer Review of Systems Constitutional: Reports: Night Sweats, Fatigue Eyes: Denies: Blurred vision, Pain HEENT: Reports: Sinus Congestion, Sinus Drainage Cardiovascular: Denies: Chest Pain, Palpitations Respiratory: Reports: Shortness of breath at rest Gastrointestinal: Denies: Abdominal Pain, Nausea, Vomiting Genitourinary: Denies: Dysuria Musculoskeletal: Denies: Joint Pain, Joint Tenderness Skin: Denies: Rash, Wounds Neurological: Denies: Numbness, Tingling, Focal weakness Psychiatric: Denies: Anxiety, Depression, Homicidal Ideations, Suicidal Ideations Hematologic/ Lymphatic: Denies: Easy Bruising, Easy Bleeding VTE Information - Inpt Only VTE Present on Admission: No VTE Mechan Device Prophylaxis: None VTE Pharm Prophylaxis ordered?: No Reason prophylaxis not ordered:: Medical Contraindication Patient Problems: Active and Suspected Problems (Last Reviewed 03/30/18 @ 23:00 by Ludwin Branch MD) Acute tracheobronchitis (Acute) Acute bacterial rhinosinusitis (Acute) Severe protein-calorie malnutrition (Acute) - Physical Exam General: Alert, Oriented x3, Cooperative HEENT: Atraumatic, PERRLA, EOMI, Normocephalic Neck: Supple, No JVD, Negative Carotid Bruits Lungs: Tachypneic Cardiovascular: Tachycardic, - - Irregularly irregular rhythm Abdomen: Bowel Sounds Present, Soft, Non Tender, - - Scaphoid abdomen. PEG tube in place Extremities: No edema, Capillary Refill Less than 3 Seconds Skin: No rashes, No breakdown Musculoskeletal: No Tenderness to Palpation of Joints or Extremities Neurological: Cranial nerves II-XII grossly intact Psych/Mental Status: Normal Affect Vital Signs Temp Pulse Resp BP Pulse Ox 98 F 100 22 H 123/74 H 100 03/30/18 16:49 03/30/18 19:51 03/30/18 19:51 03/30/18 19:51 03/30/18 19:51 Oxygen Flow Rate (L/min) 2 Oxygen Delivery Method Room Air Weight: 46.1 kg Body Mass Index (BMI) 16.4 Laboratory Tests Past 24 Hrs 03/30/18 03/30/18 03/30/18 17:30 17:30 17:30 WBC 6.3 RBC 4.77 Hgb 13.0 Hct 41.2 MCV 86.4 MCH 27.3 MCHC 31.6 L RDW 14.3 RDW Differential 45.2 H Plt Count TNP MPV 12.0 Immature Gran % (Auto) 0.300 Neut % (Auto) 75.1 H Lymph % (Auto) 16.9 L [place] % (Auto) 4.7 Eos % (Auto) 2.8 Baso % (Auto) 0.2 Absolute Neuts (auto) 4.8 Absolute Lymphs (auto) 1.07 Total Counted Not Reportable Differential Comment SCANNED Platelet Estimate ADEQUATE Sodium 135 L Potassium 5.3 H Chloride 101 Carbon Dioxide 30.0 Anion Gap 4 L BUN 16 Creatinine 0.62 Estim Creat Clear Calc 35.92 Est GFR (MDRD) Af Amer 120 Est GFR (MDRD) Non-Af 99 BUN/Creatinine Ratio 25.6 H Glucose 148 H Calcium 9.1 Troponin I < 0.015 B-Natriuretic Peptide 126.8 H Assessment/Plan All Active Problems (Last Reviewed 03/30/18 @ 23:00 by Ludwin Branch MD) Gastritis (Acute) Acute tracheobronchitis (Acute) Acute bacterial rhinosinusitis (Acute) Severe protein-calorie malnutrition (Acute) Severe depression (Acute) Metabolic encephalopathy (Acute) Acute exacerbation of chronic obstructive pulmonary disease (COPD) (Resolved) Acute shock liver (Resolved) Hemoptysis (Resolved) Septic shock (Resolved) Spontaneous pneumothorax (Resolved) The patient is a 72 year old F with a significant history of hypertension, A. fib, severe sinusitis, COPD, right upper lobectomy, gallbladder surgery, partial thyroidectomy who presents with progressively worsening dyspnea ?3 weeks and with positive MRSA and Pseudomonas on a nasal swab concerning for acute rhinosinusitis with tracheobronchitis.. Acute rhinosinusitis with tracheobronchitis. Received vancomycin, Levaquin and Zosyn at emergency department Vancomycin and Zosyn continued Bactroban for decolonization of nares. DuoNeb scheduled. Albuterol as needed Pulmicort continued Flonase and Mucinex continued We will consult infectious disease doctor per patient request. A. fib Cardizem and Eliquis continue Severe protein calorie malnutrition Reports receives Jevity through PEG tube. Jevity continued Nutrition consult. Hypertension Cardizem continued as above Hypothyroidism Synthroid continued DVT prophylaxis Not indicated. Patient already on therapeutic anticoagulation with Eliquis. Code Visit Inpatient E&M: 29739 Init Hosp L2
--- NOTE | 2018-03-30 20:30 | ED.VISSUMM ---
- ER Visit Summary Date of Service: 03/30/18 Chief Complaint: [Shortness of breath] History of Present Illness: The patient is a 72 F [presents to the emergency department with complaint of shortness of breath that she has had for over 3 weeks. Patient states that she has been to the ER for the same thing at least twice and has been seeing ENT. Patient recently had nasopharyngeal cultures that showed MRSA and Pseudomonas and was told that she would need IV antibiotics. Patient denies any fevers. Patient denies any chest pain. Patient has had sweats. Patient does complain of a slight sore throat. She denies significant headache or facial pain.] Physical Examination: [HEENT-PERRLA, EOMI. Cranial nerves II through XII grossly intact. TMs clear. Mucous membranes moist. No adenopathy. Vision is cachectic. Cardiovascular-regular rate and rhythm without murmur or ectopy Lungs-clear to auscultation, chest wall stable without crepitus or subcu emphysema Abdomen-normoactive bowel sounds, soft, nontender, no rebound or rigidity, no peritoneal signs. Patient has PEG tube in place. Extremities-intact ?4, normal range of motion, normal pulses, atraumatic] Test Results: [CBC with differential obtained showed a white count of 6.3, he will of 13, hematocrit 41, platelets T PROGRAM ADMINISTRATOR. Chemistries showed a sodium 135, potassium 5.3, chloride 101, CO2 30, BUN 16, Shelton 0.62. Troponin was less than 0.015. BNP was 126. Chest x-ray showed chronic changes.] Emergency Department Course and Treatment: [I start patient on vancomycin and Levaquin.] Treatment Plan: [Admit] Disposition: [Admit] Impression: Dyspnea Sinusitis with positive cultures for MRSA and Pseudomonas [] This note was generated with [employer] dictation software. It may contain incorrect words, spelling, and punctuation that were not noted in review of the chart prior to signing ED Disposition - Plan for ED Patient: Chief Complaint: Shortness of Breath Referrals: Christo Wilde MD [Primary Care Provider] -
--- NOTE | 2018-03-30 20:36 | ED.DCSUM_ITS ---
- ER Visit Summary Date of Service: 03/30/18 Chief Complaint: [Shortness of breath] History of Present Illness: The patient is a 72 F [presents to the emergency department with complaint of shortness of breath that she has had for over 3 weeks. Patient states that she has been to the ER for the same thing at least twice and has been seeing ENT. Patient recently had nasopharyngeal cultures that showed MRSA and Pseudomonas and was told that she would need IV antibiotics. Patient denies any fevers. Patient denies any chest pain. Patient has had sweats. Patient does complain of a slight sore throat. She denies significant headache or facial pain.] Physical Examination: [HEENT-PERRLA, EOMI. Cranial nerves II through XII grossly intact. TMs clear. Mucous membranes moist. No adenopathy. Vision is cachectic. Cardiovascular-regular rate and rhythm without murmur or ectopy Lungs-clear to auscultation, chest wall stable without crepitus or subcu emphysema Abdomen-normoactive bowel sounds, soft, nontender, no rebound or rigidity, no peritoneal signs. Patient has PEG tube in place. Extremities-intact ?4, normal range of motion, normal pulses, atraumatic] Test Results: [CBC with differential obtained showed a white count of 6.3, he will of 13, hematocrit 41, platelets T LOG ROLLER. Chemistries showed a sodium 135, potassium 5.3, chloride 101, CO2 30, BUN 16, Shelton 0.62. Troponin was less than 0.015. BNP was 126. Chest x-ray showed chronic changes.] Emergency Department Course and Treatment: [I start patient on vancomycin and Levaquin.] Treatment Plan: [Admit] Disposition: [Admit] Impression: Dyspnea Sinusitis with positive cultures for MRSA and Pseudomonas [] This note was generated with [employer] dictation software. It may contain incorrect words, spelling, and punctuation that were not noted in review of the chart prior to signing ED Disposition - Plan for ED Patient: Chief Complaint: Shortness of Breath Referrals: Christo Wilde MD [Primary Care Provider] -
[2018-03-30] MEDS: levoFLOXacin IV 750 MG/150 ML BAG 100 MG IV (20:49)
--- NOTE | 2018-03-30 21:40 | NURSING ---
Called ED rope coiling machine operatorRenetta LUA at this time to confirm Pt okay to come to PCU.
[2018-03-30] MEDS: 0.9% NaCl Peripheral Flush Adult/Peds IV (23:49)
[2018-03-31] VITALS (16 sets, daily range): BP systolic 111–141; BP diastolic 62–86; PULSE 99–130; RESP 16–18; TEMP 36.8–37.1; O2SAT 95–100
[2018-03-31] MEDS: Mupirocin Ointment 22gm Tube 1 APPLIC NASAL ×3 (00:40→22:16)
[2018-03-31] MEDS: APIXABAN 2.5 MG TABLET PO ×3 (00:41→22:16)
[2018-03-31] MEDS: Magnesium Oxide 400 MG Tablet PO ×3 (00:41→22:15)
[2018-03-31] MEDS: Zolpidem Tartrate 5 MG Tablet PO ×2 (00:41→22:15)
--- NOTE | 2018-03-31 00:57 | PCM.RX.CS ---
Consult Pharmacy has been consulted to manage selected antiobiotic: Vancomycin Type of Consult: New start Suspected Infection: Pneumonia Prior Doses of Antibiotics Received/Current Regimen: Medications Vancomycin HCl 750 mg/ Sodium (Chloride) 265 mls @ 265 mls/hr IV Q24H OBINNA Piperacillin Sod/Tazobactam Sod (Zosyn) 3.375 gm in 50 mls @ 12.5 mls/hr IV Q8 OBINNA Labs: Sodium 135 mmol/L (136-145) L 03/30/18 17:30 Potassium 5.3 mmol/L (3.5-5.1) H 03/30/18 17:30 Chloride 101 mmol/L (98-107) 03/30/18 17:30 Carbon Dioxide 30.0 mmol/L (21.0-32.0) 03/30/18 17:30 Anion Gap 4 (5-15) L 03/30/18 17:30 BUN 16 mg/dL (7-18) 03/30/18 17:30 Creatinine 0.62 mg/dL (0.55-1.02) 03/30/18 17:30 Est GFR (MDRD) Af Amer 120 mL/min (>60) 03/30/18 17:30 Est GFR (MDRD) Non-Af 99 mL/min (>60) 03/30/18 17:30 BUN/Creatinine Ratio 25.6 RATIO (10-20) H 03/30/18 17:30 Glucose 148 mg/dL (74-106) H 03/30/18 17:30 Estimated Creatinine Clearance: 35.92 Goal Trough: 15-20 mcg/mL Pharmacy Plan for Drug Dosing: Pharmacy Service will continue to monitor and adjust dosing as required. Medications Vancomycin HCl 750 mg/ Sodium (Chloride) 265 mls @ 265 mls/hr IV Q24H OBINNA Follow-Up Labs: Trough Vancomycin Labs to be done on [date and time ordered]: 04/02/18 @0000
[2018-03-31] MEDS: Ipratropium/Albuterol Sulfate 3 ML AMPUL.NEB INHALATION ×6 (03:51→22:39)
[2018-03-31] MEDS: Levothyroxine 88 MCG Tablet PO (05:39)
[2018-03-31] MEDS: Piperacil/Tazobactam 3.375 GM/50 ML ML IV ×3 (05:40→22:15)
[2018-03-31 05:57] LABS: ALB/GLOB Ratio 0.7 RATIO (0.9-2.4); AST(SGOT) 55 U/L (15-37); Alanine Aminotransfer ALT/SGPT 54 U/L (13-56); Albumin, Serum 2.7 g/dL (3.2-5.0); Alkaline Phosphatase 353 U/L (45-117); Anion Gap 5 (5-15); BUN 10 mg/dL (7-18); BUN/Creat Ratio 20.5 RATIO (10-20); Calcium,Total 8.3 mg/dL (8.5-10.1); Chloride 106 mmol/L (98-107); Creatinine, Serum 0.49 mg/dL (0.55-1.02); EST Glomerular Filtration Rate 132 mL/min (>60); Est Glom Filt Rate - Afr Amer 159 mL/min (>60); Estimated Creatinine Clearance 33.74 ml/min; Globulin 4.1 g/dL (2.2-4.2); Glucose 89 mg/dL (74-106); Potassium 4.2 mmol/L (3.5-5.1); Protein, Total 6.8 g/dL (6.4-8.2); Sodium Level 140 mmol/L (136-145)
[2018-03-31] MEDS: Budesonide Respules 0.5 MG/2 ML AMPUL.NEB. INHALATION ×2 (06:39→18:44)
--- NOTE | 2018-03-31 07:13 | PCM.RX.CS ---
Consult Pharmacy has been consulted to manage selected antiobiotic: Vancomycin Type of Consult: Follow-up Suspected Infection: Pneumonia Prior Doses of Antibiotics Received/Current Regimen: Medications Vancomycin HCl 750 mg/ Sodium (Chloride) 265 mls @ 265 mls/hr IV Q24H OBINNA Vancomycin HCl 1,250 mg/ (Sodium Chloride) 275 mls @ 183.333 mls/hr IV Q24H OBINNA Stop: 01/29/18 11:29 Last Admin: 01/27/18 10:00 Dose: 183.333 mls/hr Labs: Sodium 140 mmol/L (136-145) 03/31/18 05:25 Potassium 4.2 mmol/L (3.5-5.1) 03/31/18 05:25 Chloride 106 mmol/L (98-107) 03/31/18 05:25 Carbon Dioxide 29.0 mmol/L (21.0-32.0) 03/31/18 05:25 Anion Gap 5 (5-15) 03/31/18 05:25 BUN 10 mg/dL (7-18) 03/31/18 05:25 Creatinine 0.49 mg/dL (0.55-1.02) L 03/31/18 05:25 Est GFR (MDRD) Af Amer 159 mL/min (>60) 03/31/18 05:25 Est GFR (MDRD) Non-Af 132 mL/min (>60) 03/31/18 05:25 BUN/Creatinine Ratio 20.5 RATIO (10-20) H 03/31/18 05:25 Glucose 89 mg/dL (74-106) 03/31/18 05:25 Weight used for dosin kg Estimated Creatinine Clearance: 35 mL/min Goal Trough: 15-20 mcg/mL Pharmacy Plan for Drug Dosing: Recommend to adjust vancomycin to 1250mg IV q24h based on previous long-term regimen. Check trough prior to 3rd dose. Pharmacy Service will continue to monitor and adjust dosing as required. Follow-Up Labs: Trough Vancomycin - 04/02/18 @ 1600
--- NOTE | 2018-03-31 08:04 | CPS ---
pt decreased to 2 lpm....99%. Nurse aware of change
[2018-03-31] MEDS: Multivitamins,Therapeutic Tablet 1 TABLET PO (08:16)
[2018-03-31] MEDS: Ferrous Gluconate 325 MG Tablet PO ×2 (08:16→16:02)
[2018-03-31] MEDS: Jevity 1.5. 1,000 ML Bottle 240 ML GT ×3 (08:16→16:02)
[2018-03-31] MEDS: dilTIAZem CD 240 MG Capsule PO (08:16)
[2018-03-31] MEDS: Iron Polysaccharide Complex 150 MG CAPSULE PO (08:16)
--- NOTE | 2018-03-31 08:33 | PN_ITS ---
<Susu Tolbert - Last Filed: 03/31/18 12:58> Patient Problems: Active and Suspected Problems (Last Reviewed 03/30/18 @ 23:00 by Ludwin Branch MD) Acute tracheobronchitis (Acute) Acute bacterial rhinosinusitis (Acute) Severe protein-calorie malnutrition (Acute) Subjective: Patient seen and examined. Continues to complain of sinus pressure, postnasal drainage, shortness of breath and nonproductive cough. Denies fever, chills. States frustration as this is been an ongoing problem for her. Complains of anxiety. No other current complaints. - Physical Exam General: Alert, Oriented x3, Cooperative HEENT: Atraumatic, PERRLA, EOMI, Normocephalic Neck: Supple, No JVD, Negative Carotid Bruits Lungs: Clear to auscultation, Diminished Cardiovascular: Tachycardic, - - Atrial fibrillation Abdomen: Bowel Sounds Present, Soft, Non Tender, Non-Distended Extremities: No clubbing, No cyanosis, No edema, Capillary Refill Less than 3 Seconds Skin: No rashes, No breakdown Musculoskeletal: No Tenderness to Palpation of Joints or Extremities Neurological: Cranial nerves II-XII grossly intact, Neuro grossly intact Psych/Mental Status: Normal Affect, Appropriate Vital Signs Temp Pulse Resp BP Pulse Ox 98.2 F 112 H 16 141/86 H 100 03/31/18 08:24 03/31/18 08:24 03/31/18 08:24 03/31/18 08:24 03/31/18 08:24 Oxygen Flow Rate (L/min) 2 Oxygen Delivery Method Nasal Cannula Weight: 95 lb 7.362 oz Body Mass Index (BMI) 15.4 Intake and Output for Last 24 Hours 03/29/18 03/30/18 03/31/18 23:59 23:59 23:59 Intake Total 237 / 237 1048 / 1048 Balance 237 / 237 1048 / 1048 Laboratory Tests Past 24 Hrs 03/31/18 05:25 Sodium 140 Potassium 4.2 Chloride 106 Carbon Dioxide 29.0 Anion Gap 5 BUN 10 Creatinine 0.49 L Estim Creat Clear Calc 33.74 Est GFR (MDRD) Af Amer 159 Est GFR (MDRD) Non-Af 132 BUN/Creatinine Ratio 20.5 H Glucose 89 Calcium 8.3 L Total Bilirubin 0.40 AST 55 H ALT 54 Alkaline Phosphatase 353 H Total Protein 6.8 Albumin 2.7 L Globulin 4.1 Albumin/Globulin Ratio 0.7 L Medical Necessity - Tobacco Use Smoking Status: Never smoker Assessment/Plan All Active Problems (Last Reviewed 03/30/18 @ 23:00 by Ludwin Branch MD) Gastritis (Acute) Acute tracheobronchitis (Acute) Acute bacterial rhinosinusitis (Acute) Severe protein-calorie malnutrition (Acute) Severe depression (Acute) Metabolic encephalopathy (Acute) Acute exacerbation of chronic obstructive pulmonary disease (COPD) (Resolved) Acute shock liver (Resolved) Hemoptysis (Resolved) Septic shock (Resolved) Spontaneous pneumothorax (Resolved) 1. Acute rhinosinusitis with tracheobronchitis on chronic bronchitis/ bronchiectasis-recent nasopharyngeal culture 03/27/2018 positive for Pseudomonas and MRSA. Continue IV vancomycin and IV Zosyn. ID consulted. Patient follows with Dr. Boateng, ENT as outpatient as well. Will possibly consult ENT pending ID recommendations. Chest x-ray demonstrated no acute infiltrate or pleural effusion. Albuterol and DuoNeb aerosols. Continue supplement oxygen to maintain O2 at or above 90%. Continue Flonase and Mucinex. Continue Bactroban bilateral nares. 2. Chronic hypoxic respiratory failure-continue supplemental oxygen to maintain O2 at or above 90%. 3. COPD-no acute exacerbation. Continue albuterol and budesonide aerosol. Follows with Dr. Angel. 4. Obstructive sleep apnea-continue BiPAP. 5. 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 6. Chronic atrial fibrillation-continue Cardizem and Eliquis. 7. Hypothyroidism-continue home Synthroid regimen. 8. History of Takotsubo Cardiomyopathy-Echo August 2016 with EF 45-50%. 9. Severe protein calorie malnutrition-BMI 15.4. Nutrition consulted. PEG tube in place. Continue supplemental feedings per nutrition recommendation. DVT prophylaxis-Eliquis. This patient was seen by TATY Posada under the supervision of Dr. Particia. <Alex Patricia - Last Filed: 03/31/18 16:51> - Physical Exam Vital Signs Temp Pulse Resp BP Pulse Ox 98.2 F 106 H 16 111/65 100 03/31/18 14:21 03/31/18 15:09 03/31/18 15:04 03/31/18 14:21 03/31/18 14:21 Oxygen Flow Rate (L/min) 2 Oxygen Delivery Method Nasal Cannula Weight: 43.3 kg Body Mass Index (BMI) 15.4 Intake and Output for Last 24 Hours 03/29/18 03/30/18 03/31/18 23:59 23:59 23:59 Intake Total 237 / 237 1432 / 1432 Balance 237 / 237 1432 / 1432 Laboratory Tests Past 24 Hrs 03/31/18 05:25 Sodium 140 Potassium 4.2 Chloride 106 Carbon Dioxide 29.0 Anion Gap 5 BUN 10 Creatinine 0.49 L Estim Creat Clear Calc 33.74 Est GFR (MDRD) Af Amer 159 Est GFR (MDRD) Non-Af 132 BUN/Creatinine Ratio 20.5 H Glucose 89 Calcium 8.3 L Total Bilirubin 0.40 AST 55 H ALT 54 Alkaline Phosphatase 353 H Total Protein 6.8 Albumin 2.7 L Globulin 4.1 Albumin/Globulin Ratio 0.7 L Assessment/Plan This patient was seen in conjunction with TATY Posada. I have independently interviewed and examined the patient and reviewed pertinent historical, laboratory, and other data. Please refer to BETH Posada note for details of this patient's presentation, findings, and recommendations. I have reviewed TATY Posada note and concur with documented findings. In brief, patient is a 72 year old lady admitted with shortness of breath Physical Examination: GENERAL: Appears cachectic HEENT: Clear conjunctiva, NECK; supple, normal thyroid, CHEST: Diminished to auscultation bilaterally, HEART: Regular S1 S2, ABDOMEN: soft, non-tender, SKIN: No Rash Assessment: 1. Acute rhinosinusitis with tracheobronchitis on chronic bronchitis/ bronchiectasis- with Pseudomonas and MRSA. 2. Severe protein calorie malnutrition with a BMI of 15.4 3. Chronic hypoxic respiratory failure 4. Chronic obstructive pulmonary disease 5. 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 6. Chronic atrial fibrillation 7. Hypothyroidism 8. History of Takotsubo Cardiomyopathy-Echo August 2016 with EF 45-50%. 9. Obstructive sleep apnea 10. DVT prophylaxis-Eliquis. Recommendations: 1. I have discussed the results of my overview and impressions with the patient 2. Options for management were reviewed Code Visit Inpatient E&M: 34554 Subs Hosp L3
--- NOTE | 2018-03-31 11:15 | CASEMGMT ---
Face to Face with patient for initial transition planning/care coordination assessment. RN THELMA introduced self and role at [facility], pt voices understanding and consents to assessment at this time. Pt is sitting up in bed in no distress at this time. Pt is A/O x4 at this time and answers all questions appropriately at this time. Care providers, pharmacy, and demographics verified. See attached link. Pt voices no further concerns/needs at this time. Advised pt to ask for CM if any further questions/concerns/needs arise, voices understanding. CM to follow for any further discharge planning/needs. PLAN: [place] [facility]
[2018-03-31] MEDS: ALPRAZolam 0.25 MG Tablet PO (12:11)
[2018-03-31] MEDS: 0.9% NaCl Peripheral Flush Adult/Peds IV (12:13)
--- NOTE | 2018-03-31 13:34 | NURSING ---
Was asked to see patient for PEG tube care. pt states she has had the PEG tube since the last time I was here. States that the PEG was inserted by Dr Vera. site is without redness. there is a small amount of drainage noted. some hypergranulation noted at the insert site. cleansed area with soap and water. pat dry. placed drain sponge and secured with tape. pt tolerated well. no signs of infection noted.
--- NOTE | 2018-03-31 16:18 | PCM.HP.ID ---
Problem List (1) Sinusitis Status: Chronic Reason for Consult: sinusitis Consulted by: Dr. Patricia History of Present Illness: The patient is a 72 year old F with recurrent sinusitis who presented with 3 weeks of progressive R facial headache, congestion, nausea, cough, and chills. No diarrhea, no recent abx. Had been on iv vanc and ceftriaxone for 4 weeks in December/January. Saw Dr. Boateng recently, cx (+) for mrsa and PsA, admitted, on vanc and zosyn, feeling a little better. Full ROS performed and neg except as noted above. 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) Chronic respiratory failure with hypoxia (Chronic) NEPTALI (obstructive sleep apnea) (Chronic) PND (paroxysmal nocturnal dyspnea) (Chronic) Bronchiectasis (Chronic) Pulmonary hypertension (Chronic) Takotsubo cardiomyopathy (Chronic) EF in August of 2016 was 45-50%, previously 20% Chronic atrial fibrillation (Chronic) Hypomagnesemia (Chronic) Recheck magnesium in 48 hours Allergies/Adverse Reactions: Allergies sulfamethoxazole [From Bactrim] Allergy (Verified 03/30/18 16:52) Hives PT STATES NOT ALLERGIC tetracycline Allergy (Verified 03/30/18 16:52) Hives trimethoprim [From Bactrim] Allergy (Verified 03/30/18 16:52) Hives verapamil Allergy (Verified 03/30/18 16:52) Unknown itraconazole Adverse Reaction (Verified 03/30/18 16:52) chest tightness w/ upper and loewr extremity weakness warfarin [From Coumadin] Adverse Reaction (Verified 03/30/18 16:52) gi bleed SODIUM PENTATHOL Allergy (Uncoded 03/30/18 16:52) jaundice/hives JAUNDICE Home Medications: Ambulatory Orders Medication Instructions Recorded Cholecalciferol (Vitamin D3) 2,000 unit PO DAILY 10/30/16 [Vitamin D3] Formoterol Fumarate [Perforomist] 20 mcg INHALATION BID 04/18/17 Calcium Carb/Vitamin D [Os-Zach 1 tab PO BIDCM 12/26/17 500MG + D] Albuterol Inhaler [Ventolin Hfa] 1 - 2 puff INHALATION Q2H PRN PRN 01/24/18 #1 inhaler Budesonide [Pulmicort] 0.25 mg IH BID #60 ampul.neb 01/24/18 Senna/Docusate Sodium [Senokot-S] 2 tab PO BID #120 tab 01/24/18 Famotidine [Pepcid] 40 mg PO DAILY PRN 02/07/18 Iron Polysaccharide Complex 150 mg PO DAILYCM 02/07/18 [Ferrex 150] Jevity 1.5 240 ml GT 0800,1200,1800 02/07/18 Lactobacillus Acidophilus 1 tab PO BID 02/07/18 [Acidophilus] Levothyroxine [Synthroid] 88 mcg GT DAILY@0600 02/07/18 Apixaban [Eliquis] 2.5 mg PO BID 03/21/18 Diltiazem HCl [Diltiazem 24Hr ER] 240 mg PO DAILY 03/21/18 Ferrous Gluconate 325 mg PO BIDCM 03/21/18 Fluticasone 0.05% [Flonase Nasal 2 spray INTRANASAL DAILY PRN PRN 03/21/18 [place]] Guaifenesin [Mucinex] 1,200 mg PO BID PRN PRN 03/21/18 Magnesium Oxide [Mgo] 400 mg PO BID 03/21/18 Mirtazapine [Remeron] 15 mg PO QHS PRN PRN 03/21/18 Multivitamin [Daily Multiple 1 each PO DAILY 03/21/18 Vitamin] Potassium Chloride [K-Dur] 20 meq PO BIDCM 03/21/18 - Social History SMOKING STATUS:: Never smoker Vital Signs Temp Pulse Resp BP Pulse Ox 98.2 F 106 H 16 111/65 100 03/31/18 14:21 03/31/18 15:09 03/31/18 15:04 03/31/18 14:21 03/31/18 14:21 Oxygen Flow Rate (L/min) 2 Oxygen Delivery Method Nasal Cannula Weight: 43.3 kg Body Mass Index (BMI) 15.4 Laboratory Tests Past 24 Hrs 03/31/18 05:25 Sodium 140 Potassium 4.2 Chloride 106 Carbon Dioxide 29.0 Anion Gap 5 BUN 10 Creatinine 0.49 L Estim Creat Clear Calc 33.74 Est GFR (MDRD) Af Amer 159 Est GFR (MDRD) Non-Af 132 BUN/Creatinine Ratio 20.5 H Glucose 89 Calcium 8.3 L Total Bilirubin 0.40 AST 55 H ALT 54 Alkaline Phosphatase 353 H Total Protein 6.8 Albumin 2.7 L Globulin 4.1 Albumin/Globulin Ratio 0.7 L - Other Studies Radiology: [] reviewed Other Studies: [] Route of nutrition/ use of supplements: [] Nutritional Intake: [] IV Site: [] Hernandez Catheter: [] - Physical Exam General: Alert, Oriented x3, Cooperative, No apparent distress HEENT: Atraumatic, PERRLA, EOMI, - - Mild R frontal tenderness Neck: Supple, No Nodes Lungs: Diminished, Rhonchi Cardiovascular: Regular rate, Regular Rhythm, No murmurs Abdomen: Bowel Sounds Present, Soft, Non Tender, Non-Distended Extremities: No edema Skin: No rashes Musculoskeletal: No Tenderness to Palpation of Joints or Extremities Neurological: Cranial nerves II-XII grossly intact - Assessment/Plan Antibiotics: [] Assessment/Plan: [] Active and Suspected Problems (Last Reviewed 03/30/18 @ 23:00 by Ludwin Branch MD) Acute tracheobronchitis (Acute) Acute bacterial rhinosinusitis (Acute) Severe protein-calorie malnutrition (Acute) Recurrent sinusitis, cx now with MRSA and pseudomonas, improving on vanc/zosyn. Denies any issues with cipro in the past. Limited options for long courses of abx for MRSA coverage. Plan will be for several weeks of vanc/zosyn iv. Weekly bmp, cbc, and vanc trough while on these abx. Thank you, will follow.
[2018-03-31] MEDS: Ondansetron 4 MG/2 ML Vial IV (20:25)
[2018-04-01] VITALS (16 sets, daily range): BP systolic 119–147; BP diastolic 64–74; PULSE 99–115; RESP 16–24; TEMP 36.1–37.1; O2SAT 96–100
[2018-04-01] MEDS: Piperacil/Tazobactam 3.375 GM/50 ML ML IV ×2 (05:37→13:14)
[2018-04-01] MEDS: Levothyroxine 88 MCG Tablet PO (05:38)
[2018-04-01 06:42] LABS: Anion Gap 5 (5-15); BUN 11 mg/dL (7-18); BUN/Creat Ratio 20.4 RATIO (10-20); Calcium,Total 8.5 mg/dL (8.5-10.1); Chloride 105 mmol/L (98-107); Creatinine, Serum 0.54 mg/dL (0.55-1.02); EST Glomerular Filtration Rate 117 mL/min (>60); Est Glom Filt Rate - Afr Amer 142 mL/min (>60); Estimated Creatinine Clearance 33.74 ml/min; Glucose 81 mg/dL (74-106); Potassium 3.8 mmol/L (3.5-5.1); Sodium Level 139 mmol/L (136-145)
[2018-04-01] MEDS: dilTIAZem CD 240 MG Capsule PO (07:05)
[2018-04-01] MEDS: Ipratropium/Albuterol Sulfate 3 ML AMPUL.NEB INHALATION ×4 (07:25→18:43)
[2018-04-01] MEDS: Budesonide Respules 0.5 MG/2 ML AMPUL.NEB. INHALATION ×2 (07:25→18:43)
[2018-04-01] MEDS: Mupirocin Ointment 22gm Tube 1 APPLIC NASAL ×2 (08:31→21:57)
[2018-04-01] MEDS: Iron Polysaccharide Complex 150 MG CAPSULE PO (08:31)
[2018-04-01] MEDS: Ferrous Gluconate 325 MG Tablet PO ×2 (08:31→16:15)
[2018-04-01] MEDS: Jevity 1.5. 1,000 ML Bottle 240 ML GT ×3 (08:31→16:15)
[2018-04-01] MEDS: APIXABAN 2.5 MG TABLET PO ×2 (08:31→21:57)
[2018-04-01] MEDS: Magnesium Oxide 400 MG Tablet PO ×2 (08:31→21:57)
[2018-04-01] MEDS: Multivitamins,Therapeutic Tablet 1 TABLET PO (08:31)
--- NOTE | 2018-04-01 12:20 | PCM.PROGNOTE ---
<Susu Tolbert - Last Filed: 04/01/18 12:35> Patient Problems: Active and Suspected Problems (Last Reviewed 03/30/18 @ 23:00 by Ludwin Branch MD) Acute tracheobronchitis (Acute) Acute bacterial rhinosinusitis (Acute) Severe protein-calorie malnutrition (Acute) Subjective: Patient seen and examined. States her sinus congestion and breathing is mildly improved from yesterday. States she has been able to eat and ambulate around her room without significant shortness of breath. Denies fever, chills. Continues to have nonproductive cough. Discussed with patient that she will likely need PICC line for further antibiotic therapy at discharge. Patient states she has administered antibiotics at home herself in the past. Patient complains of stomach not feeling well. She denies abdominal pain, nausea, diarrhea. She states it is difficult to explain her symptom. She feels this may be related to her anxiety. - Physical Exam General: Alert, Oriented x3, Cooperative, No apparent distress, - - Cachectic HEENT: Atraumatic, PERRLA, EOMI, Normocephalic Neck: Supple, No JVD, Negative Carotid Bruits Lungs: Clear to auscultation, Diminished Cardiovascular: - - Atrial fibrillation, mild tachycardia Abdomen: Bowel Sounds Present, Soft, Non Tender, Non-Distended, - - PEG tube site intact Extremities: No clubbing, No cyanosis, No edema, Capillary Refill Less than 3 Seconds Skin: No rashes, No breakdown Musculoskeletal: No Tenderness to Palpation of Joints or Extremities Neurological: Cranial nerves II-XII grossly intact, Neuro grossly intact Psych/Mental Status: Normal Affect, Appropriate Vital Signs Temp Pulse Resp BP Pulse Ox 98.5 F 112 H 24 H 140/64 H 100 04/01/18 06:00 04/01/18 11:54 04/01/18 11:54 04/01/18 06:00 04/01/18 07:25 Oxygen Flow Rate (L/min) 2 Oxygen Delivery Method Nasal Cannula Weight: 95 lb 7.362 oz Body Mass Index (BMI) 15.4 Intake and Output for Last 24 Hours 03/30/18 03/31/18 04/01/18 23:59 23:59 23:59 Intake Total 237 / 237 2752 / 2752 240 / 240 Balance 237 / 237 2752 / 2752 240 / 240 Laboratory Tests Past 24 Hrs 04/01/18 05:14 Sodium 139 Potassium 3.8 Chloride 105 Carbon Dioxide 29.0 Anion Gap 5 BUN 11 Creatinine 0.54 L Estim Creat Clear Calc 33.74 Est GFR (MDRD) Af Amer 142 Est GFR (MDRD) Non-Af 117 BUN/Creatinine Ratio 20.4 H Glucose 81 Calcium 8.5 Medical Necessity - Tobacco Use Smoking Status: Never smoker Assessment/Plan All Active Problems (Last Reviewed 03/30/18 @ 23:00 by Ludwin Branch MD) Gastritis (Acute) Acute tracheobronchitis (Acute) Acute bacterial rhinosinusitis (Acute) Severe protein-calorie malnutrition (Acute) Severe depression (Acute) Metabolic encephalopathy (Acute) Acute exacerbation of chronic obstructive pulmonary disease (COPD) (Resolved) Acute shock liver (Resolved) Hemoptysis (Resolved) Septic shock (Resolved) Spontaneous pneumothorax (Resolved) 1. Acute rhinosinusitis with tracheobronchitis on chronic bronchitis/bronchiectasis-recent nasopharyngeal culture 03/27/2018 positive for Pseudomonas and MRSA. Continue IV vancomycin and IV Zosyn. ID consulted. Plan for several weeks of IV Zosyn and vancomycin. Patient will need PICC line placement prior to discharge. Patient follows with Dr. Boateng, ENT as outpatient as well. Recommend continued follow-up with ENT as outpatient. Chest x-ray demonstrated no acute infiltrate or pleural effusion. Albuterol and DuoNeb aerosols. Continue supplement oxygen to maintain O2 at or above 90%. Continue Flonase and Mucinex. Continue Bactroban bilateral nares. 2. Chronic hypoxic respiratory failure-continue supplemental oxygen to maintain O2 at or above 90%. 3. COPD-no acute exacerbation. Continue albuterol and budesonide aerosol. Follows with Dr. Angel. 4. Obstructive sleep apnea-continue BiPAP. 5. 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 6. Chronic atrial fibrillation-continue Cardizem and Eliquis. 7. Hypothyroidism-continue home Synthroid regimen. 8. History of Takotsubo Cardiomyopathy-Echo August 2016 with EF 45-50%. 9. Severe protein calorie malnutrition-BMI 15.4. Nutrition consulted. PEG tube in place. Continue supplemental feedings per nutrition recommendation. DVT prophylaxis-Eliquis. This patient was seen by TATY Posada under the supervision of Dr. Castro. <MatthewPari E - Last Filed: 04/01/18 15:04> - Physical Exam Vital Signs Temp Pulse Resp BP Pulse Ox 97.6 F L 112 H 23 H 119/74 97 04/01/18 08:54 04/01/18 11:54 04/01/18 14:47 04/01/18 08:54 04/01/18 14:43 Oxygen Flow Rate (L/min) 2 Oxygen Delivery Method Nasal Cannula Weight: 95 lb 7.362 oz Body Mass Index (BMI) 15.4 Intake and Output for Last 24 Hours 03/30/18 03/31/18 04/01/18 23:59 23:59 23:59 Intake Total 237 / 237 2752 / 2752 240 / 240 Balance 237 / 237 2752 / 2752 240 / 240 Laboratory Tests Past 24 Hrs 04/01/18 05:14 Sodium 139 Potassium 3.8 Chloride 105 Carbon Dioxide 29.0 Anion Gap 5 BUN 11 Creatinine 0.54 L Estim Creat Clear Calc 33.74 Est GFR (MDRD) Af Amer 142 Est GFR (MDRD) Non-Af 117 BUN/Creatinine Ratio 20.4 H Glucose 81 Calcium 8.5 Assessment/Plan Hospitalist note: I am seeing this patient in conjunction with Susu Tolbert. I independently seen and examined the patient. Progress note above and laboratory data reviewed and I agree with the above treatment plan. Patient reports that her sore throat, sinus congestion and shortness of breath improved. All over, she is feeling better. She continued to complain of dry cough. She is still tachycardic, afebrile, blood pressure stable and pulse ox is maintained on 2 L of oxygen. - Physical Exam General: Alert, Oriented x3, Cooperative, No apparent distress. HEENT: Atraumatic, PERRLA, EOMI. Neck: Supple, No JVD, Negative Carotid Bruits, Trachea Midline, Thyroid Normal. Lungs: Decreased breath sounds bilateral, otherwise clear, no rhonchi, No wheeze, No rales. Cardiovascular: irregular normal S1, Normal S2, PMI Normal. Abdomen: Bowel Sounds Present, Soft, Non Tender, Non-Distended, No Hepato-splenomegaly, PEG tube in place. Extremities: No clubbing, No cyanosis, No edema Skin: No rashes, No breakdown Neurological: Neuro grossly intact Assessment and plan: #1 MRSA/Pseudomonas acute rhinosinusitis with tracheobronchitis in context of history for chronic bronchitis/bronchiectasis: She is on IV Zosyn and vancomycin. Blood cultures pending. Previous cultures reviewed. Vital signs are stable, afebrile but slightly tachycardic. No leukocytosis. Infectious disease and ENT on the case. Plan for PICC line for long-term IV antibiotics. #2 other chronic medical problems: Stable, continue current medications as above. This note was generated with [employer] dictation software. It may contain incorrect words, spelling, and punctuation that were not noted in checking the note before signing. Code Visit Inpatient E&M: 56357 Subs Hosp L2
--- NOTE | 2018-04-01 12:34 | PN_ITS ---
<Susu Tolbert - Last Filed: 04/01/18 12:35> Patient Problems: Active and Suspected Problems (Last Reviewed 03/30/18 @ 23:00 by Ludwin Branch MD) Acute tracheobronchitis (Acute) Acute bacterial rhinosinusitis (Acute) Severe protein-calorie malnutrition (Acute) Subjective: Patient seen and examined. States her sinus congestion and breathing is mildly improved from yesterday. States she has been able to eat and ambulate around her room without significant shortness of breath. Denies fever, chills. Continues to have nonproductive cough. Discussed with patient that she will likely need PICC line for further antibiotic therapy at discharge. Patient states she has administered antibiotics at home herself in the past. Patient complains of stomach not feeling well. She denies abdominal pain, nausea, diarrhea. She states it is difficult to explain her symptom. She feels this may be related to her anxiety. - Physical Exam General: Alert, Oriented x3, Cooperative, No apparent distress, - - Cachectic HEENT: Atraumatic, PERRLA, EOMI, Normocephalic Neck: Supple, No JVD, Negative Carotid Bruits Lungs: Clear to auscultation, Diminished Cardiovascular: - - Atrial fibrillation, mild tachycardia Abdomen: Bowel Sounds Present, Soft, Non Tender, Non-Distended, - - PEG tube site intact Extremities: No clubbing, No cyanosis, No edema, Capillary Refill Less than 3 Seconds Skin: No rashes, No breakdown Musculoskeletal: No Tenderness to Palpation of Joints or Extremities Neurological: Cranial nerves II-XII grossly intact, Neuro grossly intact Psych/Mental Status: Normal Affect, Appropriate Vital Signs Temp Pulse Resp BP Pulse Ox 98.5 F 112 H 24 H 140/64 H 100 04/01/18 06:00 04/01/18 11:54 04/01/18 11:54 04/01/18 06:00 04/01/18 07:25 Oxygen Flow Rate (L/min) 2 Oxygen Delivery Method Nasal Cannula Weight: 95 lb 7.362 oz Body Mass Index (BMI) 15.4 Intake and Output for Last 24 Hours 03/30/18 03/31/18 04/01/18 23:59 23:59 23:59 Intake Total 237 / 237 2752 / 2752 240 / 240 Balance 237 / 237 2752 / 2752 240 / 240 Laboratory Tests Past 24 Hrs 04/01/18 05:14 Sodium 139 Potassium 3.8 Chloride 105 Carbon Dioxide 29.0 Anion Gap 5 BUN 11 Creatinine 0.54 L Estim Creat Clear Calc 33.74 Est GFR (MDRD) Af Amer 142 Est GFR (MDRD) Non-Af 117 BUN/Creatinine Ratio 20.4 H Glucose 81 Calcium 8.5 Medical Necessity - Tobacco Use Smoking Status: Never smoker Assessment/Plan All Active Problems (Last Reviewed 03/30/18 @ 23:00 by Ludwin Branch MD) Gastritis (Acute) Acute tracheobronchitis (Acute) Acute bacterial rhinosinusitis (Acute) Severe protein-calorie malnutrition (Acute) Severe depression (Acute) Metabolic encephalopathy (Acute) Acute exacerbation of chronic obstructive pulmonary disease (COPD) (Resolved) Acute shock liver (Resolved) Hemoptysis (Resolved) Septic shock (Resolved) Spontaneous pneumothorax (Resolved) 1. Acute rhinosinusitis with tracheobronchitis on chronic bronchitis/ bronchiectasis-recent nasopharyngeal culture 03/27/2018 positive for Pseudomonas and MRSA. Continue IV vancomycin and IV Zosyn. ID consulted. Plan for several weeks of IV Zosyn and vancomycin. Patient will need PICC line placement prior to discharge. Patient follows with Dr. Boateng, ENT as outpatient as well. Recommend continued follow-up with ENT as outpatient. Chest x-ray demonstrated no acute infiltrate or pleural effusion. Albuterol and DuoNeb aerosols. Continue supplement oxygen to maintain O2 at or above 90% . Continue Flonase and Mucinex. Continue Bactroban bilateral nares. 2. Chronic hypoxic respiratory failure-continue supplemental oxygen to maintain O2 at or above 90%. 3. COPD-no acute exacerbation. Continue albuterol and budesonide aerosol. Follows with Dr. Angel. 4. Obstructive sleep apnea-continue BiPAP. 5. 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 6. Chronic atrial fibrillation-continue Cardizem and Eliquis. 7. Hypothyroidism-continue home Synthroid regimen. 8. History of Takotsubo Cardiomyopathy-Echo August 2016 with EF 45-50%. 9. Severe protein calorie malnutrition-BMI 15.4. Nutrition consulted. PEG tube in place. Continue supplemental feedings per nutrition recommendation. DVT prophylaxis-Eliquis. This patient was seen by TATY Posada under the supervision of Dr. Castro. <MatthewPari E - Last Filed: 04/01/18 15:04> - Physical Exam Vital Signs Temp Pulse Resp BP Pulse Ox 97.6 F L 112 H 23 H 119/74 97 04/01/18 08:54 04/01/18 11:54 04/01/18 14:47 04/01/18 08:54 04/01/18 14:43 Oxygen Flow Rate (L/min) 2 Oxygen Delivery Method Nasal Cannula Weight: 95 lb 7.362 oz Body Mass Index (BMI) 15.4 Intake and Output for Last 24 Hours 03/30/18 03/31/18 04/01/18 23:59 23:59 23:59 Intake Total 237 / 237 2752 / 2752 240 / 240 Balance 237 / 237 2752 / 2752 240 / 240 Laboratory Tests Past 24 Hrs 04/01/18 05:14 Sodium 139 Potassium 3.8 Chloride 105 Carbon Dioxide 29.0 Anion Gap 5 BUN 11 Creatinine 0.54 L Estim Creat Clear Calc 33.74 Est GFR (MDRD) Af Amer 142 Est GFR (MDRD) Non-Af 117 BUN/Creatinine Ratio 20.4 H Glucose 81 Calcium 8.5 Assessment/Plan Hospitalist note: I am seeing this patient in conjunction with Susu Tolbert. I independently seen and examined the patient. Progress note above and laboratory data reviewed and I agree with the above treatment plan. Patient reports that her sore throat, sinus congestion and shortness of breath improved. All over, she is feeling better. She continued to complain of dry cough. She is still tachycardic, afebrile, blood pressure stable and pulse ox is maintained on 2 L of oxygen. - Physical Exam General: Alert, Oriented x3, Cooperative, No apparent distress. HEENT: Atraumatic, PERRLA, EOMI. Neck: Supple, No JVD, Negative Carotid Bruits, Trachea Midline, Thyroid Normal. Lungs: Decreased breath sounds bilateral, otherwise clear, no rhonchi, No wheeze , No rales. Cardiovascular: irregular normal S1, Normal S2, PMI Normal. Abdomen: Bowel Sounds Present, Soft, Non Tender, Non-Distended, No Hepato- splenomegaly, PEG tube in place. Extremities: No clubbing, No cyanosis, No edema Skin: No rashes, No breakdown Neurological: Neuro grossly intact Assessment and plan: #1 MRSA/Pseudomonas acute rhinosinusitis with tracheobronchitis in context of history for chronic bronchitis/bronchiectasis: She is on IV Zosyn and vancomycin. Blood cultures pending. Previous cultures reviewed. Vital signs are stable, afebrile but slightly tachycardic. No leukocytosis. Infectious disease and ENT on the case. Plan for PICC line for long-term IV antibiotics. #2 other chronic medical problems: Stable, continue current medications as above. This note was generated with [employer] dictation software. It may contain incorrect words, spelling, and punctuation that were not noted in checking the note before signing. Code Visit Inpatient E&M: 11811 Subs Hosp L2
[2018-04-01] MEDS: ALPRAZolam 0.25 MG Tablet PO ×2 (13:14→20:44)
--- NOTE | 2018-04-01 14:11 | PCM.CONS.B ---
- Consult Date of Consult: 04/01/18 - Reason for Consult ENT consultation on Yadira Gomez: The patient is a 72-year-old white female well known to my colleague Dr. Sabino Boateng and known to me as I performed consultation back in December 2017. ENT evaluation was requested once again because she has been it admitted again because of recurrent respiratory infections. She has had a long history of sinusitis of a recurrent nature, often with resistant bacteria as well as recurrent pulmonary infections and a long history of bronchiectasis. Back in December she was admitted because of sinusitis due to methicillin-resistant staph aureus and possibly Pseudomonas. Currently those are the 2 bacteria taken from nasal culture 2-[address] Boateng had been seeing her in office up until admission. She is currently being treated. The ENT consult was requested to see if any surgical intervention was necessary. Dr Boateng had suggested ID consult in his recent notes and had not entertained doing any surgery. When one examines the CT scan that was done in January of this year, after several weeks of appropriate antibiotic therapy based on the previous cultures, one can see that the sinuses are completely clear. There did not appear to be anatomical obstruction that would be amenable to surgery. 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 We reviewed her history at length once again this afternoon with input from her who also was there. 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 It is entirely conceivable that the fumes from this may have had some adverse effect because she recalls having frequent respiratory infections, seemingly related to the workplace. Approximately 12-13 years ago and she had an extensive workup in an attempt to understand these recurring respiratory infections and this workup included a search for underlying medical or metabolic disorders as well as autoimmune disorders. She recalls having been seen at the [facility] and had an even more extensive evaluation at [facility]. She stated that [facility] surgeons helped her with lung problems at that time. The entire medical workup was negative for an underlying disorder. Nonetheless it might be very helpful to obtain those old records and see if anything might require rechecking. In addition it would be valuable to see what her immune status is, to see if there is in fact any immunoglobulin deficiency that might be amenable to IgG infusions. These considerations were discussed with her caretakers here in the hospital, and I believe Ms. Tolbert may seek old records that would be helpful in deciding if any repeat testing would be valuable. The infectious disease department who will be consulted here shortly may also help with the discussion regarding immune supplementation if in fact it is warranted. To reiterate, at this time it does not seem that surgical intervention would have much benefit for the current situation. I will relate this information to Dr. Boateng and if he has any other comments we can convey this. David Vasquez MD
--- NOTE | 2018-04-01 23:28 | NURSING ---
Patient without IV access after multiple attempts to start IV. There is an order for PICC line insertion. splicing technician called and stated they will be unable to place PICC line until 7 am. Pt with IV zosyn and IV vanc due at this time. Per Dr. Chowdhury it is ok to leave pt without IV access until 7 am when PICC line is inserted. Funmi Billy RN
[2018-04-02] VITALS (17 sets, daily range): BP systolic 121–145; BP diastolic 59–81; PULSE 89–158; RESP 16–23; TEMP 35.7–37.1; O2SAT 97–100
[2018-04-02] MEDS: Levothyroxine 88 MCG Tablet PO (05:42)
[2018-04-02] MEDS: Ipratropium/Albuterol Sulfate 3 ML AMPUL.NEB INHALATION ×4 (07:08→18:52)
[2018-04-02] MEDS: Budesonide Respules 0.5 MG/2 ML AMPUL.NEB. INHALATION ×2 (07:13→18:53)
[2018-04-02] MEDS: APIXABAN 2.5 MG TABLET PO ×2 (08:59→21:15)
[2018-04-02] MEDS: Magnesium Oxide 400 MG Tablet PO ×2 (08:59→21:15)
[2018-04-02] MEDS: Multivitamins,Therapeutic Tablet 1 TABLET PO (08:59)
[2018-04-02] MEDS: dilTIAZem CD 240 MG Capsule PO (08:59)
[2018-04-02] MEDS: Iron Polysaccharide Complex 150 MG CAPSULE PO (08:59)
[2018-04-02] MEDS: Ferrous Gluconate 325 MG Tablet PO ×2 (09:00→17:52)
[2018-04-02] MEDS: Mupirocin Ointment 22gm Tube 1 APPLIC NASAL ×2 (09:04→21:08)
[2018-04-02] MEDS: Jevity 1.5. 1,000 ML Bottle 240 ML GT ×3 (10:02→17:50)
[2018-04-02] MEDS: ALPRAZolam 0.25 MG Tablet PO ×2 (10:49→23:18)
--- NOTE | 2018-04-02 11:06 | PCM.PROGNOTE ---
<Susu Tolbert - Last Filed: 04/02/18 11:20> Patient Problems: Active and Suspected Problems (Last Reviewed 03/30/18 @ 23:00 by Ludwin Branch MD) Acute tracheobronchitis (Acute) Acute bacterial rhinosinusitis (Acute) Severe protein-calorie malnutrition (Acute) Subjective: Patient seen and examined. States she feels improved. Sinus congestion and shortness of breath improving. Denies fever, chills. No other current complaints. - Physical Exam General: Alert, Oriented x3, Cooperative, No apparent distress HEENT: Atraumatic, PERRLA, EOMI, Normocephalic Neck: Supple, No JVD, Negative Carotid Bruits Lungs: Clear to auscultation, Diminished Cardiovascular: Tachycardic, - - Atrial fibrillation Abdomen: Bowel Sounds Present, Soft, Non Tender, Non-Distended Extremities: No clubbing, No cyanosis, No edema, Capillary Refill Less than 3 Seconds Skin: No rashes, No breakdown Musculoskeletal: No Tenderness to Palpation of Joints or Extremities, Cachexia Neurological: Cranial nerves II-XII grossly intact Psych/Mental Status: Normal Affect, Appropriate Vital Signs Temp Pulse Resp BP Pulse Ox 96.2 F L 106 H 23 H 121/80 H 100 04/02/18 09:10 04/02/18 11:00 04/02/18 11:00 04/02/18 09:10 04/02/18 09:10 Oxygen Flow Rate (L/min) 2 Oxygen Delivery Method Nasal Cannula Weight: 95 lb 7.362 oz Body Mass Index (BMI) 15.4 Intake and Output for Last 24 Hours 03/31/18 04/01/18 04/02/18 23:59 23:59 23:59 Intake Total 2752 / 2752 1919 Balance 2752 / 2752 1919 Medical Necessity - Tobacco Use Smoking Status: Never smoker Assessment/Plan All Active Problems (Last Reviewed 03/30/18 @ 23:00 by Ludwin Branch MD) Gastritis (Acute) Acute tracheobronchitis (Acute) Acute bacterial rhinosinusitis (Acute) Severe protein-calorie malnutrition (Acute) Severe depression (Acute) Metabolic encephalopathy (Acute) Acute exacerbation of chronic obstructive pulmonary disease (COPD) (Resolved) Acute shock liver (Resolved) Hemoptysis (Resolved) Septic shock (Resolved) Spontaneous pneumothorax (Resolved) Patient is a 72-year-old female admitted 03/30/2018 due to worsening dyspnea. She has a past medical history of hypertension, chronic atrial fibrillation, COPD, status post right upper lobectomy, NEPTALI, chronic hypoxic respiratory failure, hypothyroidism, history of takotsubo cardiomyopathy, severe protein calorie malnutrition status post PEG tube placement, recurrent severe sinusitis. 1. Acute rhinosinusitis with tracheobronchitis on chronic bronchitis/bronchiectasis-recent nasopharyngeal culture 03/27/2018 positive for Pseudomonas and MRSA. Continue IV vancomycin and IV Zosyn. ID consulted. Plan for several weeks of IV Zosyn and vancomycin. PICC line placement ordered. Patient follows with Dr. Boateng, ENT as outpatient as well. Dr. Vasquez consulted. ENT reports no need for sinus surgery as CT in January 2018 was clear without anatomical obstruction following antibiotic course. 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 Patient has had extensive workup at [facility] and [facility] to assess for underlying autoimmune/metabolic disorders that may put her at high risk for infection. She notes nothing was found at that time. Will request to obtain records. Chest x-ray demonstrated no acute infiltrate or pleural effusion. Albuterol and DuoNeb aerosols. Continue supplement oxygen to maintain O2 at or above 90%. Continue Flonase and Mucinex. Continue Bactroban bilateral nares. 2. Chronic hypoxic respiratory failure-continue supplemental oxygen to maintain O2 at or above 90%. 3. COPD-no acute exacerbation. Continue albuterol and budesonide aerosol. Follows with Dr. Angel. 4. Obstructive sleep apnea-continue BiPAP. 5. 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 6. Chronic atrial fibrillation-continue Cardizem and Eliquis. 7. Hypothyroidism-continue home Synthroid regimen. 8. History of Takotsubo Cardiomyopathy-Echo August 2016 with EF 45-50%. 9. Severe protein calorie malnutrition-BMI 15.4. Nutrition consulted. PEG tube in place. Continue supplemental feedings per nutrition recommendation. DVT prophylaxis-Eliquis. This patient was seen by TATY Posada under the supervision of Dr. Castro. <Pari Castro - Last Filed: 04/02/18 12:28> - Physical Exam Vital Signs Temp Pulse Resp BP Pulse Ox 98.1 F 125 H 20 H 141/78 H 99 04/02/18 11:50 04/02/18 11:50 04/02/18 11:50 04/02/18 11:50 04/02/18 11:50 Oxygen Flow Rate (L/min) 2 Oxygen Delivery Method Nasal Cannula Weight: 95 lb 7.362 oz Body Mass Index (BMI) 15.4 Intake and Output for Last 24 Hours 03/31/18 04/01/18 04/02/18 23:59 23:59 23:59 Intake Total 2752 / 2752 1919 / 192 Balance 2752 / 2752 1919 / 1919 Assessment/Plan Hospitalist note: I am seeing this patient in conjunction with Susu Tolbert. I independently seen and examined the patient. Progress note above and I agree with the above treatment plan. All over, she is feeling better. Shortness of breath, sore throat and sinus congestion continued to improve. Her vital signs are stable. - Physical Exam General: Alert, Oriented x3, Cooperative, No apparent distress. HEENT: Atraumatic, PERRLA, EOMI. Neck: Supple, No JVD, Negative Carotid Bruits, Trachea Midline, Thyroid Normal. Lungs: Decreased breath sounds bilateral, otherwise clear, no rhonchi, No wheeze, No rales. Cardiovascular: irregular normal S1, Normal S2, PMI Normal. Abdomen: Bowel Sounds Present, Soft, Non Tender, Non-Distended, No Hepato-splenomegaly, PEG tube in place. Extremities: No clubbing, No cyanosis, No edema Skin: No rashes, No breakdown Neurological: Neuro grossly intact Assessment and plan: #1 MRSA/Pseudomonas acute rhinosinusitis with tracheobronchitis in context of history for chronic bronchitis/bronchiectasis: Remained on IV Zosyn and vancomycin. Blood cultures showed no growth in 48 hours. Previous cultures reviewed. Vital signs are stable, afebrile but slightly tachycardic. No leukocytosis. Infectious disease and ENT on the case. Plan for PICC line for long-term IV antibiotics. #2 other chronic medical problems: Stable, continue current medications as above. This note was generated with [employer] software. It may contain incorrect words, spelling, and punctuation that were not noted in checking the note before signing. Code Visit Inpatient E&M: 11920 Subs Hosp L2
--- NOTE | 2018-04-02 11:20 | PN_ITS ---
<Susu Tolbert - Last Filed: 04/02/18 11:20> Patient Problems: Active and Suspected Problems (Last Reviewed 03/30/18 @ 23:00 by Ludwin Branch MD) Acute tracheobronchitis (Acute) Acute bacterial rhinosinusitis (Acute) Severe protein-calorie malnutrition (Acute) Subjective: Patient seen and examined. States she feels improved. Sinus congestion and shortness of breath improving. Denies fever, chills. No other current complaints. - Physical Exam General: Alert, Oriented x3, Cooperative, No apparent distress HEENT: Atraumatic, PERRLA, EOMI, Normocephalic Neck: Supple, No JVD, Negative Carotid Bruits Lungs: Clear to auscultation, Diminished Cardiovascular: Tachycardic, - - Atrial fibrillation Abdomen: Bowel Sounds Present, Soft, Non Tender, Non-Distended Extremities: No clubbing, No cyanosis, No edema, Capillary Refill Less than 3 Seconds Skin: No rashes, No breakdown Musculoskeletal: No Tenderness to Palpation of Joints or Extremities, Cachexia Neurological: Cranial nerves II-XII grossly intact Psych/Mental Status: Normal Affect, Appropriate Vital Signs Temp Pulse Resp BP Pulse Ox 96.2 F L 106 H 23 H 121/80 H 100 04/02/18 09:10 04/02/18 11:00 04/02/18 11:00 04/02/18 09:10 04/02/18 09:10 Oxygen Flow Rate (L/min) 2 Oxygen Delivery Method Nasal Cannula Weight: 95 lb 7.362 oz Body Mass Index (BMI) 15.4 Intake and Output for Last 24 Hours 03/31/18 04/01/18 04/02/18 23:59 23:59 23:59 Intake Total 2752 / 2752 1919 Balance 2752 / 2752 1919 Medical Necessity - Tobacco Use Smoking Status: Never smoker Assessment/Plan All Active Problems (Last Reviewed 03/30/18 @ 23:00 by Ludwin Branch MD) Gastritis (Acute) Acute tracheobronchitis (Acute) Acute bacterial rhinosinusitis (Acute) Severe protein-calorie malnutrition (Acute) Severe depression (Acute) Metabolic encephalopathy (Acute) Acute exacerbation of chronic obstructive pulmonary disease (COPD) (Resolved) Acute shock liver (Resolved) Hemoptysis (Resolved) Septic shock (Resolved) Spontaneous pneumothorax (Resolved) Patient is a 72-year-old female admitted 03/30/2018 due to worsening dyspnea. She has a past medical history of hypertension, chronic atrial fibrillation, COPD, status post right upper lobectomy, NEPTALI, chronic hypoxic respiratory failure, hypothyroidism, history of takotsubo cardiomyopathy, severe protein calorie malnutrition status post PEG tube placement, recurrent severe sinusitis. 1. Acute rhinosinusitis with tracheobronchitis on chronic bronchitis/ bronchiectasis-recent nasopharyngeal culture 03/27/2018 positive for Pseudomonas and MRSA. Continue IV vancomycin and IV Zosyn. ID consulted. Plan for several weeks of IV Zosyn and vancomycin. PICC line placement ordered. Patient follows with Dr. Boateng, ENT as outpatient as well. Dr. Vasquez consulted. ENT reports no need for sinus surgery as CT in January 2018 was clear without anatomical obstruction following antibiotic course. 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 Patient has had extensive workup at [facility] and [facility] to assess for underlying autoimmune/metabolic disorders that may put her at high risk for infection. She notes nothing was found at that time. Will request to obtain records. Chest x-ray demonstrated no acute infiltrate or pleural effusion. Albuterol and DuoNeb aerosols. Continue supplement oxygen to maintain O2 at or above 90%. Continue Flonase and Mucinex. Continue Bactroban bilateral nares. 2. Chronic hypoxic respiratory failure-continue supplemental oxygen to maintain O2 at or above 90%. 3. COPD-no acute exacerbation. Continue albuterol and budesonide aerosol. Follows with Dr. Angel. 4. Obstructive sleep apnea-continue BiPAP. 5. 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 6. Chronic atrial fibrillation-continue Cardizem and Eliquis. 7. Hypothyroidism-continue home Synthroid regimen. 8. History of Takotsubo Cardiomyopathy-Echo August 2016 with EF 45-50%. 9. Severe protein calorie malnutrition-BMI 15.4. Nutrition consulted. PEG tube in place. Continue supplemental feedings per nutrition recommendation. DVT prophylaxis-Eliquis. This patient was seen by TATY Posada under the supervision of Dr. Castro. <Pari Castro - Last Filed: 04/02/18 12:28> - Physical Exam Vital Signs Temp Pulse Resp BP Pulse Ox 98.1 F 125 H 20 H 141/78 H 99 04/02/18 11:50 04/02/18 11:50 04/02/18 11:50 04/02/18 11:50 04/02/18 11:50 Oxygen Flow Rate (L/min) 2 Oxygen Delivery Method Nasal Cannula Weight: 95 lb 7.362 oz Body Mass Index (BMI) 15.4 Intake and Output for Last 24 Hours 03/31/18 04/01/18 04/02/18 23:59 23:59 23:59 Intake Total 2752 / 2752 1919 / 192 Balance 2752 / 2752 1919 / 1919 Assessment/Plan Hospitalist note: I am seeing this patient in conjunction with Susu Tolbert. I independently seen and examined the patient. Progress note above and I agree with the above treatment plan. All over, she is feeling better. Shortness of breath, sore throat and sinus congestion continued to improve. Her vital signs are stable. - Physical Exam General: Alert, Oriented x3, Cooperative, No apparent distress. HEENT: Atraumatic, PERRLA, EOMI. Neck: Supple, No JVD, Negative Carotid Bruits, Trachea Midline, Thyroid Normal. Lungs: Decreased breath sounds bilateral, otherwise clear, no rhonchi, No wheeze , No rales. Cardiovascular: irregular normal S1, Normal S2, PMI Normal. Abdomen: Bowel Sounds Present, Soft, Non Tender, Non-Distended, No Hepato- splenomegaly, PEG tube in place. Extremities: No clubbing, No cyanosis, No edema Skin: No rashes, No breakdown Neurological: Neuro grossly intact Assessment and plan: #1 MRSA/Pseudomonas acute rhinosinusitis with tracheobronchitis in context of history for chronic bronchitis/bronchiectasis: Remained on IV Zosyn and vancomycin. Blood cultures showed no growth in 48 hours. Previous cultures reviewed. Vital signs are stable, afebrile but slightly tachycardic. No leukocytosis. Infectious disease and ENT on the case. Plan for PICC line for long-term IV antibiotics. #2 other chronic medical problems: Stable, continue current medications as above. This note was generated with [employer] software. It may contain incorrect words, spelling, and punctuation that were not noted in checking the note before signing. Code Visit Inpatient E&M: 28305 Subs Hosp L2
[2018-04-02] MEDS: 0.9% NaCl Peripheral Flush Adult/Peds IV ×3 (11:56→14:39)
--- NOTE | 2018-04-02 13:34 | RAD_ITS ---
STUDY: X-RAY CHEST REASON FOR EXAM: Female, 72 years old. PICC line placement. TECHNIQUE: AP frontal. COMPARISON: March 30, 2018 FINDINGS: There is a right sided PIC line in place with its tip within the expected region of the cavoatrial junction. The lungs remain hyperinflated. There is volume loss of the right lung associated with a stable right apical pneumothorax likely related to prior right upper lobectomy. There is no new focal consolidation. There are prominent interstitial markings. There is stable cardiomegaly. Normal mediastinum and lindsey. Normal visualized pulmonary arteries. Normal visualized aortic arch and descending thoracic aorta. There is demineralization of the osseous structures. Normal visualized ribs, clavicles, and shoulders. There is no demonstrated abnormality of the visualized soft tissue structures of the upper abdomen. RAD/CXR for Line Placement IMPRESSION: Right PICC line within the cavoatrial junction otherwise grossly stable examination since March 30, 2018. Electronically Signed: Ashley Streeter MD at 14:44 EDT Tel , Service support ,
[2018-04-02] MEDS: Metoprolol Tartrate 5 MG/5 ML Vial IV (14:12)
[2018-04-02] MEDS: Piperacil/Tazobactam 3.375 GM/50 ML ML IV ×2 (14:31→21:08)
[2018-04-02] MEDS: Zolpidem Tartrate 5 MG Tablet PO (21:15)
[2018-04-02] MEDS: Mirtazapine 15 MG Tablet PO (23:19)
[2018-04-03] VITALS (17 sets, daily range): BP systolic 128–140; BP diastolic 72–89; PULSE 94–137; RESP 14–18; TEMP 36.3–37.4; O2SAT 94–100
[2018-04-03] MEDS: Levothyroxine 88 MCG Tablet PO (05:19)
[2018-04-03] MEDS: Piperacil/Tazobactam 3.375 GM/50 ML ML IV ×2 (05:20→13:49)
[2018-04-03] MEDS: Ipratropium/Albuterol Sulfate 3 ML AMPUL.NEB INHALATION ×4 (06:43→18:43)
[2018-04-03] MEDS: Budesonide Respules 0.5 MG/2 ML AMPUL.NEB. INHALATION ×2 (06:43→18:43)
[2018-04-03] MEDS: Iron Polysaccharide Complex 150 MG CAPSULE PO (08:45)
[2018-04-03] MEDS: Ferrous Gluconate 325 MG Tablet PO ×2 (08:45→16:30)
[2018-04-03] MEDS: Multivitamins,Therapeutic Tablet 1 TABLET PO (08:45)
[2018-04-03] MEDS: Jevity 1.5. 1,000 ML Bottle 240 ML GT ×3 (08:45→18:23)
[2018-04-03] MEDS: dilTIAZem CD 240 MG Capsule PO (08:45)
[2018-04-03] MEDS: Mupirocin Ointment 22gm Tube 1 APPLIC NASAL ×2 (09:56→23:08)
[2018-04-03] MEDS: Magnesium Oxide 400 MG Tablet PO ×2 (09:56→23:05)
[2018-04-03] MEDS: APIXABAN 2.5 MG TABLET PO ×2 (09:56→23:05)
--- NOTE | 2018-04-03 10:26 | CASEMGMT ---
Pt states no preference for HHC/IV supply company at discharge. Pt states that is teachable. Awaiting ID consult and order for home meds. Mike LUA CM
[2018-04-03] MEDS: dilTIAZem CD 120 MG Capsule PO (12:45)
[2018-04-03] MEDS: Metoprolol Tartrate 5 MG/5 ML Vial IV (13:48)
--- NOTE | 2018-04-03 14:09 | PCM.DC ---
- Discharge Diagnoses Current Active Problems: Current Active and Chronic Problems (Last Reviewed 03/30/18 @ 23:00 by Ludwin Branch MD) Acute tracheobronchitis (Acute) Acute bacterial rhinosinusitis (Acute) Severe protein-calorie malnutrition (Acute) You will use the following diet at home:: No restrictions Discharge Activity: Return to Normal Activity Call your doctor if you observe: Fever of 101 or Higher, Shortness of breath, Dizziness, Fainting spells, Chest pain Allergies/Adverse Reactions: Allergies sulfamethoxazole [From Bactrim] Allergy (Verified 03/30/18 16:52) Hives PT STATES NOT ALLERGIC tetracycline Allergy (Verified 03/30/18 16:52) Hives trimethoprim [From Bactrim] Allergy (Verified 03/30/18 16:52) Hives verapamil Allergy (Verified 03/30/18 16:52) Unknown itraconazole Adverse Reaction (Verified 03/30/18 16:52) chest tightness w/ upper and loewr extremity weakness warfarin [From Coumadin] Adverse Reaction (Verified 03/30/18 16:52) gi bleed SODIUM PENTATHOL Allergy (Uncoded 03/30/18 16:52) jaundice/hives JAUNDICE Medications to take at Discharge Cholecalciferol (Vitamin D3) [Vitamin D3] 2,000 unit PO DAILY 10/30/16 Formoterol Fumarate [Perforomist] 20 mcg INHALATION BID 04/18/17 Calcium Carb/Vitamin D [Os-Zach 500MG + D] 1 tab PO BIDCM 12/26/17 Albuterol Inhaler [Ventolin Hfa] 1 - 2 puff INHALATION Q2H PRN PRN #1 inhaler 01/24/18 Budesonide [Pulmicort] 0.25 mg IH BID #60 ampul.neb 01/24/18 Senna/Docusate Sodium [Senokot-S] 2 tab PO BID #120 tab 01/24/18 Famotidine [Pepcid] 40 mg PO DAILY PRN 02/07/18 Iron Polysaccharide Complex [Ferrex 150] 150 mg PO DAILYCM 02/07/18 Jevity 1.5 240 ml GT 0800,1200,1800 02/07/18 Lactobacillus Acidophilus [Acidophilus] 1 tab PO BID 02/07/18 Levothyroxine [Synthroid] 88 mcg GT DAILY@0600 02/07/18 Apixaban [Eliquis] 2.5 mg PO BID 03/21/18 Ferrous Gluconate 325 mg PO BIDCM 03/21/18 Fluticasone 0.05% [Flonase Nasal [place]] 2 spray INTRANASAL DAILY PRN PRN 03/21/18 Guaifenesin [Mucinex] 1,200 mg PO BID PRN PRN 03/21/18 Magnesium Oxide [Mgo] 400 mg PO BID 03/21/18 Mirtazapine [Remeron] 15 mg PO QHS PRN PRN 03/21/18 Multivitamin [Daily Multiple Vitamin] 1 each PO DAILY 03/21/18 Ciprofloxacin [Cipro] 750 mg PO BID 38 Days #114 tab 04/03/18 Diltiazem CD [Cardizem CD] 360 mg PO DAILY #90 cap 04/03/18 Metoprolol Tartrate 25 mg PO BID #60 tab 04/03/18 Mupirocin [Bactroban] 1 applic NASAL BID #0 tube 04/03/18 Potassium Chloride [K-Dur] 20 meq PO DAILY #30 tablet 04/03/18 Vancomycin/0.9 % Sod Chloride [Vanco 1.25 gm/150 ml-0.9% NaCl] 1.25 gm IV Q24H 38 Days #38 plast..bag 04/03/18 The following prescriptions were given: Diltiazem CD [Cardizem CD] 360 mg PO DAILY #90 cap Potassium Chloride [K-Dur] 20 meq PO DAILY #30 tablet Vancomycin/0.9 % Sod Chloride [Vanco 1.25 gm/150 ml-0.9% NaCl] 1.25 gm IV Q24H 38 Days #38 plast..bag Ciprofloxacin [Cipro] 750 mg PO BID 38 Days #114 tab Metoprolol Tartrate 25 mg PO BID #60 tab Primary Care Physician: Christo Wilde MD [Primary Care Provider] - Please follow up with your Primary Care Physician in: 1 Week Test Results: Test results from this visit will be discussed in further detail at your follow-up appointment, if applicable. Please Follow Up With: Mike Landa MD When: 4-6 Weeks Proposed Discharge Date: 04/03/18
--- NOTE | 2018-04-03 14:15 | DCINST_ITS ---
- Discharge Diagnoses Current Active Problems: Current Active and Chronic Problems (Last Reviewed 03/30/18 @ 23:00 by Ludwin Branch MD) Acute tracheobronchitis (Acute) Acute bacterial rhinosinusitis (Acute) Severe protein-calorie malnutrition (Acute) You will use the following diet at home:: No restrictions Discharge Activity: Return to Normal Activity Call your doctor if you observe: Fever of 101 or Higher, Shortness of breath, Dizziness, Fainting spells, Chest pain Allergies/Adverse Reactions: Allergies sulfamethoxazole [From Bactrim] Allergy (Verified 03/30/18 16:52) Hives PT STATES NOT ALLERGIC tetracycline Allergy (Verified 03/30/18 16:52) Hives trimethoprim [From Bactrim] Allergy (Verified 03/30/18 16:52) Hives verapamil Allergy (Verified 03/30/18 16:52) Unknown itraconazole Adverse Reaction (Verified 03/30/18 16:52) chest tightness w/ upper and loewr extremity weakness warfarin [From Coumadin] Adverse Reaction (Verified 03/30/18 16:52) gi bleed SODIUM PENTATHOL Allergy (Uncoded 03/30/18 16:52) jaundice/hives JAUNDICE Medications to take at Discharge Cholecalciferol (Vitamin D3) [Vitamin D3] 2,000 unit PO DAILY 10/30/16 Formoterol Fumarate [Perforomist] 20 mcg INHALATION BID 04/18/17 Calcium Carb/Vitamin D [Os-Zach 500MG + D] 1 tab PO BIDCM 12/26/17 Albuterol Inhaler [Ventolin Hfa] 1 - 2 puff INHALATION Q2H PRN PRN #1 inhaler Budesonide [Pulmicort] 0.25 mg IH BID #60 ampul.neb 01/24/18 Senna/Docusate Sodium [Senokot-S] 2 tab PO BID #120 tab 01/24/18 Famotidine [Pepcid] 40 mg PO DAILY PRN 02/07/18 Iron Polysaccharide Complex [Ferrex 150] 150 mg PO DAILYCM 02/07/18 Jevity 1.5 240 ml GT 0800,1200,1800 02/07/18 Lactobacillus Acidophilus [Acidophilus] 1 tab PO BID 02/07/18 Levothyroxine [Synthroid] 88 mcg GT DAILY@0600 02/07/18 Apixaban [Eliquis] 2.5 mg PO BID 03/21/18 Ferrous Gluconate 325 mg PO BIDCM 03/21/18 Fluticasone 0.05% [Flonase Nasal [place]] 2 spray INTRANASAL DAILY PRN PRN Guaifenesin [Mucinex] 1,200 mg PO BID PRN PRN 03/21/18 Magnesium Oxide [Mgo] 400 mg PO BID 03/21/18 Mirtazapine [Remeron] 15 mg PO QHS PRN PRN 03/21/18 Multivitamin [Daily Multiple Vitamin] 1 each PO DAILY 03/21/18 Ciprofloxacin [Cipro] 750 mg PO BID 38 Days #114 tab 04/03/18 Diltiazem CD [Cardizem CD] 360 mg PO DAILY #90 cap 04/03/18 Metoprolol Tartrate 25 mg PO BID #60 tab 04/03/18 Mupirocin [Bactroban] 1 applic NASAL BID #0 tube 04/03/18 Potassium Chloride [K-Dur] 20 meq PO DAILY #30 tablet 04/03/18 Vancomycin/0.9 % Sod Chloride [Vanco 1.25 gm/150 ml-0.9% NaCl] 1.25 gm IV Q24H 38 Days #38 plast..bag 04/03/18 The following prescriptions were given: Diltiazem CD [Cardizem CD] 360 mg PO DAILY #90 cap Potassium Chloride [K-Dur] 20 meq PO DAILY #30 tablet Vancomycin/0.9 % Sod Chloride [Vanco 1.25 gm/150 ml-0.9% NaCl] 1.25 gm IV Q24H 38 Days #38 plast..bag Ciprofloxacin [Cipro] 750 mg PO BID 38 Days #114 tab Metoprolol Tartrate 25 mg PO BID #60 tab Primary Care Physician: Christo Wilde MD [Primary Care Provider] - Please follow up with your Primary Care Physician in: 1 Week Test Results: Test results from this visit will be discussed in further detail at your follow- up appointment, if applicable. Please Follow Up With: Mike Landa MD When: 4-6 Weeks Proposed Discharge Date: 04/03/18
--- NOTE | 2018-04-03 14:28 | CASEMGMT ---
Pt to be sent home with Vancomycin IV every 24 hours and script obtained from Dr. Landa at this time. Referral faxed to [facility] at this time and call to Eli at [facility]. Per Eli, they can take pt for iv antibx at this time. This RN CM will placed call to [facility] regarding referral. SStblade LUA CM
--- NOTE | 2018-04-03 14:44 | PCM.DC.SUM ---
<Susu Tolbert - Last Filed: 04/04/18 11:12> Discharge Date and Diagnosis Date of Admission: 03/30/18 Date of Discharge: 04/03/18 - Primary Discharge Diagnosis Active and Suspected Problems (Last Reviewed 03/30/18 @ 23:00 by Ludwin Branch MD) 1. Acute Pseudomonas and MRSA rhinosinusitis with tracheobronchitis on chronic bronchitis/bronchiectasis 2. 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 Electronically Signed: Ashley Streeter MD at 14:44 EDT Tel , Service support , Consultations 03/30/18 23:13 Consult: Onc/Wound/internal security manager Routine Comment: Reason for Consult:: GT care Dr. Landa- ID Dr. Vasquez- ENT Operations: None Procedures: None Summary of Care Provided: Patient is a 72-year-old female admitted 03/30/2018 due to worsening dyspnea. She has a past medical history of hypertension, chronic atrial fibrillation, COPD, status post right upper lobectomy, NEPTALI, chronic hypoxic respiratory failure, hypothyroidism, history of takotsubo cardiomyopathy, severe protein calorie malnutrition status post PEG tube placement, recurrent severe sinusitis. 1. Acute rhinosinusitis with tracheobronchitis on chronic bronchitis/bronchiectasis-recent nasopharyngeal culture 03/27/2018 positive for Pseudomonas and MRSA. Patient will be discharged on oral ciprofloxacin for 30 days as well as IV vancomycin for 38 days. PICC line placed during admission. Infectious disease consulted. Recommend follow-up with ID as outpatient in 4-6 weeks. Patient follows with Dr. Boateng, ENT as outpatient as well. Dr. Vasquez consulted. ENT reports no need for sinus surgery as CT in January 2018 was clear without anatomical obstruction following antibiotic course. 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 Patient has had extensive workup at [facility] and [facility] to assess for underlying autoimmune/metabolic disorders that may put her at high risk for infection. She notes nothing was found at that time. Chest x-ray demonstrated no acute infiltrate or pleural effusion. Continue supplement oxygen to maintain O2 at or above 90%. Continue Flonase and Mucinex. Continue Bactroban bilateral nares for 2 more days at discharge. 2. Chronic hypoxic respiratory failure-continue supplemental oxygen to maintain O2 at or above 90%. 3. COPD-no acute exacerbation. Continue albuterol and budesonide aerosol. Follows with Dr. Angel. 4. Obstructive sleep apnea-continue BiPAP. 5. 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 6. Chronic atrial fibrillation-continue Cardizem and Eliquis. Cardizem regimen increased to 360 mg daily. Patient was also started on metoprolol 25 mg twice daily. 7. Hypothyroidism-continue home Synthroid regimen. 8. History of Takotsubo Cardiomyopathy-Echo August 2016 with EF 45-50%. 9. Severe protein calorie malnutrition-BMI 15.4. Continue supplemental nutrition through PEG tube. General: Alert, Oriented x3, Cooperative, No apparent distress HEENT: Atraumatic, PERRLA, EOMI, Normocephalic Neck: Supple, No JVD, Negative Carotid Bruits Lungs: Clear to auscultation, Diminished Cardiovascular: Tachycardic, - - Atrial fibrillation Abdomen: Bowel Sounds Present, Soft, Non Tender, Non-Distended Extremities: No clubbing, No cyanosis, No edema, Capillary Refill Less than 3 Seconds Skin: No rashes, No breakdown Musculoskeletal: No Tenderness to Palpation of Joints or Extremities, Cachexia Neurological: Cranial nerves II-XII grossly intact Psych/Mental Status: Normal Affect, Appropriate Patient seen exam prior to discharge. Physical assessment as noted above. Patient is stable for discharge home with home health services and further IV and oral antibiotic therapy per ID recommendations. This patient was seen by TATY Posada under the supervision of Dr. Castro. Discharge Diet: No Restrictions Discharge Activity: Return to Normal Activity Call your doctor if you observe: Fever of 101 or Higher, Shortness of breath, Dizziness, Fainting spells, Chest pain Home Medications: Medications to take at Discharge Cholecalciferol (Vitamin D3) [Vitamin D3] 2,000 unit PO DAILY 10/30/16 Formoterol Fumarate [Perforomist] 20 mcg INHALATION BID 04/18/17 Calcium Carb/Vitamin D [Os-Zach 500MG + D] 1 tab PO BIDCM 12/26/17 Albuterol Inhaler [Ventolin Hfa] 1 - 2 puff INHALATION Q2H PRN PRN #1 inhaler 01/24/18 Budesonide [Pulmicort] 0.25 mg IH BID #60 ampul.neb 01/24/18 Senna/Docusate Sodium [Senokot-S] 2 tab PO BID #120 tab 01/24/18 Famotidine [Pepcid] 40 mg PO DAILY PRN 02/07/18 Iron Polysaccharide Complex [Ferrex 150] 150 mg PO DAILYCM 02/07/18 Jevity 1.5 240 ml GT 0800,1200,1800 02/07/18 Lactobacillus Acidophilus [Acidophilus] 1 tab PO BID 02/07/18 Levothyroxine [Synthroid] 88 mcg GT DAILY@0600 02/07/18 Apixaban [Eliquis] 2.5 mg PO BID 03/21/18 Ferrous Gluconate 325 mg PO BIDCM 03/21/18 Fluticasone 0.05% [Flonase Nasal [place]] 2 spray INTRANASAL DAILY PRN PRN 03/21/18 Guaifenesin [Mucinex] 1,200 mg PO BID PRN PRN 03/21/18 Magnesium Oxide [Mgo] 400 mg PO BID 03/21/18 Mirtazapine [Remeron] 15 mg PO QHS PRN PRN 03/21/18 Multivitamin [Daily Multiple Vitamin] 1 each PO DAILY 03/21/18 Ciprofloxacin [Cipro] 750 mg PO BID 38 Days #114 tab 04/03/18 Diltiazem CD [Cardizem CD] 360 mg PO DAILY #90 cap 04/03/18 Metoprolol Tartrate 25 mg PO BID #60 tab 04/03/18 Mupirocin [Bactroban] 1 applic NASAL BID #0 tube 04/03/18 Potassium Chloride [K-Dur] 20 meq PO DAILY #30 tablet 04/03/18 Vancomycin/0.9 % Sod Chloride [Vanco 1.25 gm/150 ml-0.9% NaCl] 1.25 gm IV Q24H 38 Days #38 plast..bag 04/03/18 Following Prescrptions Were Given to Patient: Diltiazem CD [Cardizem CD] 360 mg PO DAILY #90 cap Potassium Chloride [K-Dur] 20 meq PO DAILY #30 tablet Vancomycin/0.9 % Sod Chloride [Vanco 1.25 gm/150 ml-0.9% NaCl] 1.25 gm IV Q24H 38 Days #38 plast..bag Ciprofloxacin [Cipro] 750 mg PO BID 38 Days #114 tab Metoprolol Tartrate 25 mg PO BID #60 tab Primary Care Physician: Christo Wilde MD [Primary Care Provider] - Please follow up with your Primary Care Physician in: 1 Week Please Follow Up With: Mike Landa MD When: 4-6 Weeks Disposition: Home with Home Health Minutes spent on discharge:: 35 Patient Condition:: Stable Medical Necessity - Tobacco Use Smoking Status: Never smoker Meaningful Use Info Meaningful Use Diagnoses (Choose all that apply): None applicable <Pari Castro E - Last Filed: 04/04/18 14:58> Discharge Date and Diagnosis - Secondary Discharge Diagnosis Chronic Problems (Last Reviewed 03/30/18 @ 23:00 by Ludwin Branch MD) Dysphagia (Chronic) Sinusitis (Chronic) Shortness of breath (Chronic) Thrush (Chronic) Thrush, oral (Chronic) Community acquired pneumonia due to Klebsiella pneumoniae (Chronic) Hyperkalemia (Chronic) Hyponatremia (Chronic) Severe malnutrition (Chronic) Atrial fibrillation with RVR (Chronic) Acute and chronic respiratory failure with hypoxia (Chronic) 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) Chronic respiratory failure with hypoxia (Chronic) NEPTALI (obstructive sleep apnea) (Chronic) PND (paroxysmal nocturnal dyspnea) (Chronic) Bronchiectasis (Chronic) Pulmonary hypertension (Chronic) Takotsubo cardiomyopathy (Chronic) EF in August of 2016 was 45-50%, previously 20% Chronic atrial fibrillation (Chronic) Hypomagnesemia (Chronic) Recheck magnesium in 48 hours Hospital Course and Treatment Consultations 03/30/18 23:13 Consult: Onc/Wound/internal security manager Routine Comment: Reason for Consult:: GT care Summary of Care Provided: Hospitalist Note: Discharge summary above reviewed as well as physical examination and I agree with above discharge plan. Patient seen and examined and she reported continued slow improvement of her symptoms. She is feeling more better every day. Her vital signs remained stable. She remained on IV vancomycin and started on ciprofloxacin. Her vital signs have been stable. She was admitted for recurrent/acute rhinosinusitis with tracheobronchitis and her cultures were positive for Pseudomonas and MRSA. She was treated with IV vancomycin and Zosyn initially. Infectious disease as well as ENT consulted and recommended to continue IV antibiotics. Her blood culture showed no growth in 48 hours. With IV antibiotic therapy, patient symptoms improved and she has been stable. Her vital signs has been stable except her heart rate which has been around 100 and this is chronic. She has a history of chronic A. fib and according to the patient, her heart rate has been always around 100. Her blood pressure was stable. Patient discharged home in stable medical condition, discharged on IV vancomycin and oral ciprofloxacin for 4 weeks of treatment according to infectious disease, plan to follow-up with PCP in 1 week, follow-up with infectious disease in 4-6 weeks. Physical Exam General: Alert, Oriented x3, Cooperative, No apparent distress. HEENT: Atraumatic, PERRLA, EOMI. Neck: Supple, No JVD, Negative Carotid Bruits, Trachea Midline, Thyroid Normal. Lungs: Decreased breath sounds bilateral, otherwise clear, no rhonchi, No wheeze, No rales. Cardiovascular: irregular normal S1, Normal S2, PMI Normal. Abdomen: Bowel Sounds Present, Soft, Non Tender, Non-Distended, No Hepato-splenomegaly, PEG tube in place. Extremities: No clubbing, No cyanosis, No edema Skin: No rashes, No breakdown Neurological: Neuro grossly intact This note was generated with [employer] dictation software. It may contain incorrect words, spelling, and punctuation that were not noted in checking the note before signing. Meaningful Use Info Meaningful Use Diagnoses (Choose all that apply): None applicable Code Visit Inpatient E&M: 94152 Disch Hosp
--- NOTE | 2018-04-03 14:50 | DS.PCM_ITS ---
Addendum entered and electronically signed by TATY Posada 04/04/18 11:13: Code Visit Discharge delayed due to setting up home health services for further IV antibiotic therapy. Discharge date 04/04/2018. Physical assessment unchanged. No change in discharge planning as previously documented. General: Alert, Oriented x3, Cooperative, No apparent distress HEENT: Atraumatic, PERRLA, EOMI, Normocephalic Neck: Supple, No JVD, Negative Carotid Bruits Lungs: Clear to auscultation, Diminished Cardiovascular: Mild tachycardia, - - Atrial fibrillation Abdomen: Bowel Sounds Present, Soft, Non Tender, Non-Distended Extremities: No clubbing, No cyanosis, No edema, Capillary Refill Less than 3 Seconds Skin: No rashes, No breakdown Musculoskeletal: No Tenderness to Palpation of Joints or Extremities, Cachexia Neurological: Cranial nerves II-XII grossly intact Psych/Mental Status: Normal Affect, Appropriate Patient seen exam prior to discharge. Physical assessment as noted above. Patient is stable for discharge home with home health services and further IV and oral antibiotic therapy per ID recommendations. This patient was seen by TATY Posada under the supervision of Dr. Castro. Original Note: <Susu Tolbert - Last Filed: 04/04/18 11:12> Discharge Date and Diagnosis Date of Admission: 03/30/18 Date of Discharge: 04/03/18 - Primary Discharge Diagnosis Active and Suspected Problems (Last Reviewed 03/30/18 @ 23:00 by Ludwin Branch MD) 1. Acute Pseudomonas and MRSA rhinosinusitis with tracheobronchitis on chronic bronchitis/bronchiectasis 2. 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 Electronically Signed: Ashley Streeter MD at 14:44 EDT Tel , Service support , Consultations 03/30/18 23:13 Consult: Onc/Wound/copier and printer field technician Routine Comment: Reason for Consult:: GT care Dr. Landa- ID Dr. Vasquez- ENT Operations: None Procedures: None Summary of Care Provided: Patient is a 72-year-old female admitted 03/30/2018 due to worsening dyspnea. She has a past medical history of hypertension, chronic atrial fibrillation, COPD, status post right upper lobectomy, NEPTALI, chronic hypoxic respiratory failure, hypothyroidism, history of takotsubo cardiomyopathy, severe protein calorie malnutrition status post PEG tube placement, recurrent severe sinusitis. 1. Acute rhinosinusitis with tracheobronchitis on chronic bronchitis/ bronchiectasis-recent nasopharyngeal culture 03/27/2018 positive for Pseudomonas and MRSA. Patient will be discharged on oral ciprofloxacin for 30 days as well as IV vancomycin for 38 days. PICC line placed during admission. Infectious disease consulted. Recommend follow-up with ID as outpatient in 4-6 weeks. Patient follows with Dr. Boateng, ENT as outpatient as well. Dr. Vasquez consulted. ENT reports no need for sinus surgery as CT in January 2018 was clear without anatomical obstruction following antibiotic course. 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 Patient has had extensive workup at [facility] and [facility] to assess for underlying autoimmune/metabolic disorders that may put her at high risk for infection. She notes nothing was found at that time. Chest x-ray demonstrated no acute infiltrate or pleural effusion. Continue supplement oxygen to maintain O2 at or above 90%. Continue Flonase and Mucinex. Continue Bactroban bilateral nares for 2 more days at discharge. 2. Chronic hypoxic respiratory failure-continue supplemental oxygen to maintain O2 at or above 90%. 3. COPD-no acute exacerbation. Continue albuterol and budesonide aerosol. Follows with Dr. Angel. 4. Obstructive sleep apnea-continue BiPAP. 5. 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 6. Chronic atrial fibrillation-continue Cardizem and Eliquis. Cardizem regimen increased to 360 mg daily. Patient was also started on metoprolol 25 mg twice daily. 7. Hypothyroidism-continue home Synthroid regimen. 8. History of Takotsubo Cardiomyopathy-Echo August 2016 with EF 45-50%. 9. Severe protein calorie malnutrition-BMI 15.4. Continue supplemental nutrition through PEG tube. General: Alert, Oriented x3, Cooperative, No apparent distress HEENT: Atraumatic, PERRLA, EOMI, Normocephalic Neck: Supple, No JVD, Negative Carotid Bruits Lungs: Clear to auscultation, Diminished Cardiovascular: Tachycardic, - - Atrial fibrillation Abdomen: Bowel Sounds Present, Soft, Non Tender, Non-Distended Extremities: No clubbing, No cyanosis, No edema, Capillary Refill Less than 3 Seconds Skin: No rashes, No breakdown Musculoskeletal: No Tenderness to Palpation of Joints or Extremities, Cachexia Neurological: Cranial nerves II-XII grossly intact Psych/Mental Status: Normal Affect, Appropriate Patient seen exam prior to discharge. Physical assessment as noted above. Patient is stable for discharge home with home health services and further IV and oral antibiotic therapy per ID recommendations. This patient was seen by TATY Posada under the supervision of Dr. Castro. Discharge Diet: No Restrictions Discharge Activity: Return to Normal Activity Call your doctor if you observe: Fever of 101 or Higher, Shortness of breath, Dizziness, Fainting spells, Chest pain Home Medications: Medications to take at Discharge Cholecalciferol (Vitamin D3) [Vitamin D3] 2,000 unit PO DAILY 10/30/16 Formoterol Fumarate [Perforomist] 20 mcg INHALATION BID 04/18/17 Calcium Carb/Vitamin D [Os-Zach 500MG + D] 1 tab PO BIDCM 12/26/17 Albuterol Inhaler [Ventolin Hfa] 1 - 2 puff INHALATION Q2H PRN PRN #1 inhaler Budesonide [Pulmicort] 0.25 mg IH BID #60 ampul.neb 01/24/18 Senna/Docusate Sodium [Senokot-S] 2 tab PO BID #120 tab 01/24/18 Famotidine [Pepcid] 40 mg PO DAILY PRN 02/07/18 Iron Polysaccharide Complex [Ferrex 150] 150 mg PO DAILYCM 02/07/18 Jevity 1.5 240 ml GT 0800,1200,1800 02/07/18 Lactobacillus Acidophilus [Acidophilus] 1 tab PO BID 02/07/18 Levothyroxine [Synthroid] 88 mcg GT DAILY@0600 02/07/18 Apixaban [Eliquis] 2.5 mg PO BID 03/21/18 Ferrous Gluconate 325 mg PO BIDCM 03/21/18 Fluticasone 0.05% [Flonase Nasal [place]] 2 spray INTRANASAL DAILY PRN PRN Guaifenesin [Mucinex] 1,200 mg PO BID PRN PRN 03/21/18 Magnesium Oxide [Mgo] 400 mg PO BID 03/21/18 Mirtazapine [Remeron] 15 mg PO QHS PRN PRN 03/21/18 Multivitamin [Daily Multiple Vitamin] 1 each PO DAILY 03/21/18 Ciprofloxacin [Cipro] 750 mg PO BID 38 Days #114 tab 04/03/18 Diltiazem CD [Cardizem CD] 360 mg PO DAILY #90 cap 04/03/18 Metoprolol Tartrate 25 mg PO BID #60 tab 04/03/18 Mupirocin [Bactroban] 1 applic NASAL BID #0 tube 04/03/18 Potassium Chloride [K-Dur] 20 meq PO DAILY #30 tablet 04/03/18 Vancomycin/0.9 % Sod Chloride [Vanco 1.25 gm/150 ml-0.9% NaCl] 1.25 gm IV Q24H 38 Days #38 plast..bag 04/03/18 Following Prescrptions Were Given to Patient: Diltiazem CD [Cardizem CD] 360 mg PO DAILY #90 cap Potassium Chloride [K-Dur] 20 meq PO DAILY #30 tablet Vancomycin/0.9 % Sod Chloride [Vanco 1.25 gm/150 ml-0.9% NaCl] 1.25 gm IV Q24H 38 Days #38 plast..bag Ciprofloxacin [Cipro] 750 mg PO BID 38 Days #114 tab Metoprolol Tartrate 25 mg PO BID #60 tab Primary Care Physician: Christo Wilde MD [Primary Care Provider] - Please follow up with your Primary Care Physician in: 1 Week Please Follow Up With: Mike Landa MD When: 4-6 Weeks Disposition: Home with Home Health Minutes spent on discharge:: 35 Patient Condition:: Stable Medical Necessity - Tobacco Use Smoking Status: Never smoker Meaningful Use Info Meaningful Use Diagnoses (Choose all that apply): None applicable <Pari Castro E - Last Filed: 04/04/18 14:58> Discharge Date and Diagnosis - Secondary Discharge Diagnosis Chronic Problems (Last Reviewed 03/30/18 @ 23:00 by Ludwin Branch MD) Dysphagia (Chronic) Sinusitis (Chronic) Shortness of breath (Chronic) Thrush (Chronic) Thrush, oral (Chronic) Community acquired pneumonia due to Klebsiella pneumoniae (Chronic) Hyperkalemia (Chronic) Hyponatremia (Chronic) Severe malnutrition (Chronic) Atrial fibrillation with RVR (Chronic) Acute and chronic respiratory failure with hypoxia (Chronic) 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) Chronic respiratory failure with hypoxia (Chronic) NEPTALI (obstructive sleep apnea) (Chronic) PND (paroxysmal nocturnal dyspnea) (Chronic) Bronchiectasis (Chronic) Pulmonary hypertension (Chronic) Takotsubo cardiomyopathy (Chronic) EF in August of 2016 was 45-50%, previously 20% Chronic atrial fibrillation (Chronic) Hypomagnesemia (Chronic) Recheck magnesium in 48 hours Hospital Course and Treatment Consultations 03/30/18 23:13 Consult: Onc/Wound/copier and printer field technician Routine Comment: Reason for Consult:: GT care Summary of Care Provided: Hospitalist Note: Discharge summary above reviewed as well as physical examination and I agree with above discharge plan. Patient seen and examined and she reported continued slow improvement of her symptoms. She is feeling more better every day. Her vital signs remained stable. She remained on IV vancomycin and started on ciprofloxacin. Her vital signs have been stable. She was admitted for recurrent/acute rhinosinusitis with tracheobronchitis and her cultures were positive for Pseudomonas and MRSA. She was treated with IV vancomycin and Zosyn initially. Infectious disease as well as ENT consulted and recommended to continue IV antibiotics. Her blood culture showed no growth in 48 hours. With IV antibiotic therapy, patient symptoms improved and she has been stable. Her vital signs has been stable except her heart rate which has been around 100 and this is chronic. She has a history of chronic A. fib and according to the patient, her heart rate has been always around 100. Her blood pressure was stable. Patient discharged home in stable medical condition, discharged on IV vancomycin and oral ciprofloxacin for 4 weeks of treatment according to infectious disease, plan to follow-up with PCP in 1 week, follow-up with infectious disease in 4-6 weeks. Physical Exam General: Alert, Oriented x3, Cooperative, No apparent distress. HEENT: Atraumatic, PERRLA, EOMI. Neck: Supple, No JVD, Negative Carotid Bruits, Trachea Midline, Thyroid Normal. Lungs: Decreased breath sounds bilateral, otherwise clear, no rhonchi, No wheeze , No rales. Cardiovascular: irregular normal S1, Normal S2, PMI Normal. Abdomen: Bowel Sounds Present, Soft, Non Tender, Non-Distended, No Hepato- splenomegaly, PEG tube in place. Extremities: No clubbing, No cyanosis, No edema Skin: No rashes, No breakdown Neurological: Neuro grossly intact This note was generated with [employer] dictation software. It may contain incorrect words, spelling, and punctuation that were not noted in checking the note before signing. Meaningful Use Info Meaningful Use Diagnoses (Choose all that apply): None applicable Code Visit Inpatient E&M: 34235 Disch Hosp
--- NOTE | 2018-04-03 15:37 | CASEMGMT ---
Call to [employer] and they state that referral is pending benefits at this time and Bianca is in charge of account and will call this RN CM when benefits obtained. Mike RN CM
--- NOTE | 2018-04-03 15:42 | PCM.PN.ID ---
Subjective: Feeling better, less headache, no fever - Physical Exam General: Alert, Cooperative, No apparent distress Lungs: Clear to auscultation, Normal air movement Cardiovascular: Regular rate, Regular Rhythm Abdomen: Soft, Non Tender, Non-Distended Skin: No rashes Vital Signs Temp Pulse Resp BP Pulse Ox 98.7 F 95 18 136/72 H 97 04/03/18 13:50 04/03/18 15:02 04/03/18 13:50 04/03/18 13:50 04/03/18 13:50 Oxygen Flow Rate (L/min) 2 Oxygen Delivery Method Nasal Cannula Weight: 43.3 kg Body Mass Index (BMI) 15.4 Intake and Output for Last 24 Hours 04/01/18 04/02/18 04/03/18 23:59 23:59 23:59 Intake Total 1919 1000.4 / 1000.4 1193.6 / 1193.6 Balance 1919 1000.4 / 1000.4 1193.6 / 1193.6 Medical Necessity - Tobacco Use Smoking Status: Never smoker Route of nutrition/ use of supplements: [] Nutritional Intake: [] IV Site: [] Hernandez Catheter: [] - Assessment/Plan Antibiotics: [] Assessment/Plan: [] Active and Suspected Problems (Last Reviewed 03/30/18 @ 23:00 by Ludwin Branch MD) Acute tracheobronchitis (Acute) Acute bacterial rhinosinusitis (Acute) Severe protein-calorie malnutrition (Acute) Recurrent sinusitis, cx now with MRSA and pseudomonas, improving on vanc/zosyn. Denies any issues with cipro in the past. Limited options for long courses of abx for MRSA coverage. Plan will be for 4 weeks of vanc iv and cipro po. Weekly bmp, cbc, and vanc trough while on these abx. Stop date 04/27/18. Wrote rx, d/w primary team, will follow.
--- NOTE | 2018-04-03 16:03 | CPS ---
Pt using PEP on own
--- NOTE | 2018-04-03 16:11 | PN_ITS ---
<Susu Tolbert - Last Filed: 04/03/18 16:11> Subjective: Patient seen and examined. States she feels improved. Wishes to return home today. Denies current complaints. - Physical Exam General: Alert, Oriented x3, Cooperative, No apparent distress HEENT: Atraumatic, PERRLA, EOMI, Normocephalic Neck: Supple, No JVD, Negative Carotid Bruits Lungs: Clear to auscultation, Diminished Cardiovascular: Tachycardic, - - Atrial for ablation Abdomen: Bowel Sounds Present, Soft, Non Tender, Non-Distended, - - PEG tube site intact Extremities: No clubbing, No cyanosis, No edema, Capillary Refill Less than 3 Seconds Skin: No rashes, No breakdown Musculoskeletal: No Tenderness to Palpation of Joints or Extremities, Cachexia Neurological: Cranial nerves II-XII grossly intact, Neuro grossly intact Psych/Mental Status: Normal Affect, Appropriate Vital Signs Temp Pulse Resp BP Pulse Ox 98.7 F 98 18 136/72 H 97 04/03/18 13:50 04/03/18 15:39 04/03/18 15:39 04/03/18 13:50 04/03/18 13:50 Oxygen Flow Rate (L/min) 2 Oxygen Delivery Method Nasal Cannula Weight: 95 lb 7.362 oz Body Mass Index (BMI) 15.4 Intake and Output for Last 24 Hours 04/01/18 04/02/18 04/03/18 23:59 23:59 23:59 Intake Total 1919 1000.4 / 1000.4 1193.6 / 1193.6 Balance 1919 1000.4 / 1000.4 1193.6 / 1193.6 Medical Necessity - Tobacco Use Smoking Status: Never smoker Assessment/Plan All Active Problems (Last Reviewed 03/30/18 @ 23:00 by Ludwin Branch MD) Gastritis (Acute) Acute tracheobronchitis (Acute) Acute bacterial rhinosinusitis (Acute) Severe protein-calorie malnutrition (Acute) Severe depression (Acute) Metabolic encephalopathy (Acute) Acute exacerbation of chronic obstructive pulmonary disease (COPD) (Resolved) Acute shock liver (Resolved) Hemoptysis (Resolved) Septic shock (Resolved) Spontaneous pneumothorax (Resolved) Patient is a 72-year-old female admitted 03/30/2018 due to worsening dyspnea. She has a past medical history of hypertension, chronic atrial fibrillation, COPD, status post right upper lobectomy, NEPTALI, chronic hypoxic respiratory failure, hypothyroidism, history of takotsubo cardiomyopathy, severe protein calorie malnutrition status post PEG tube placement, recurrent severe sinusitis. 1. Acute rhinosinusitis with tracheobronchitis on chronic bronchitis/ bronchiectasis-recent nasopharyngeal culture 03/27/2018 positive for Pseudomonas and MRSA. Patient will be discharged on oral ciprofloxacin for 30 days as well as IV vancomycin for 38 days. PICC line placed during admission. Infectious disease consulted. Recommend follow-up with ID as outpatient in 4-6 weeks. Patient follows with Dr. Boateng, ENT as outpatient as well. Dr. Vasquez consulted. ENT reports no need for sinus surgery as CT in January 2018 was clear without anatomical obstruction following antibiotic course. 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 Patient has had extensive workup at [facility] and [facility] to assess for underlying autoimmune/metabolic disorders that may put her at high risk for infection. She notes nothing was found at that time. Chest x-ray demonstrated no acute infiltrate or pleural effusion. Continue supplement oxygen to maintain O2 at or above 90%. Continue Flonase and Mucinex. Continue Bactroban bilateral nares for 2 more days at discharge. Patient's discharge pending home health referral for antibiotics set up. 2. Chronic hypoxic respiratory failure-continue supplemental oxygen to maintain O2 at or above 90%. 3. COPD-no acute exacerbation. Continue albuterol and budesonide aerosol. Follows with Dr. Angel. 4. Obstructive sleep apnea-continue BiPAP. 5. 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 6. Chronic atrial fibrillation-continue Cardizem and Eliquis. Cardizem regimen increased to 360 mg daily. Begin metoprolol 25 mg twice daily. 7. Hypothyroidism-continue home Synthroid regimen. 8. History of Takotsubo Cardiomyopathy-Echo August 2016 with EF 45-50%. 9. Severe protein calorie malnutrition-BMI 15.4. Continue supplemental nutrition through PEG tube. DVT prophylaxis-Eliquis This patient was seen by TATY Posada under the supervision of Dr. Castro. <Pari Castro - Last Filed: 04/04/18 14:52> - Physical Exam Vital Signs Temp Pulse Resp BP Pulse Ox 99.3 F H 100 18 129/80 H 99 04/03/18 16:31 04/03/18 16:31 04/03/18 16:31 04/03/18 16:31 04/03/18 16:31 Oxygen Flow Rate (L/min) 2 Oxygen Delivery Method Nasal Cannula Weight: 95 lb 7.362 oz Body Mass Index (BMI) 15.4 Intake and Output for Last 24 Hours 04/01/18 04/02/18 04/03/18 23:59 23:59 23:59 Intake Total 1919 1000.4 / 1000.4 1193.6 / 1193.6 Balance 1919 1000.4 / 1000.4 1193.6 / 1193.6 Assessment/Plan Hospitalist note: I am seeing this patient in conjunction with Susu Tolbert. I independently seen and examined the patient. Progress note above and I agree with the above treatment plan. All over, she is feeling better. Shortness of breath, sore throat and sinus congestion continued to improve every day. Her vital signs are stable. - Physical Exam General: Alert, Oriented x3, Cooperative, No apparent distress. HEENT: Atraumatic, PERRLA, EOMI. Neck: Supple, No JVD, Negative Carotid Bruits, Trachea Midline, Thyroid Normal. Lungs: Decreased breath sounds bilateral, otherwise clear, no rhonchi, No wheeze , No rales. Cardiovascular: irregular normal S1, Normal S2, PMI Normal. Abdomen: Bowel Sounds Present, Soft, Non Tender, Non-Distended, No Hepato- splenomegaly, PEG tube in place. Extremities: No clubbing, No cyanosis, No edema Skin: No rashes, No breakdown Neurological: Neuro grossly intact Assessment and plan: #1 MRSA/Pseudomonas acute rhinosinusitis with tracheobronchitis in context of history for chronic bronchitis/bronchiectasis: Remained on IV Zosyn and vancomycin. Blood cultures showed no growth in 48 hours. Previous cultures reviewed. Vital signs are stable, afebrile but slightly tachycardic. No leukocytosis. Infectious disease and ENT on the case. PICC line inserted. Plan is to discharge home with home health on IV antibiotics, awaiting approval from the home health agency. #2 other chronic medical problems: Stable, continue current medications as above. This note was generated with Extraprise[employer] software. It may contain incorrect words, spelling, and punctuation that were not noted in checking the note before signing.
[2018-04-03] MEDS: ALPRAZolam 0.25 MG Tablet PO (16:30)
[2018-04-03] MEDS: Zolpidem Tartrate 5 MG Tablet PO (23:05)
[2018-04-03] MEDS: Mirtazapine 15 MG Tablet PO (23:05)
[2018-04-03] MEDS: Ciprofloxacin 250 MG Tablet PO (23:06)
[2018-04-03] MEDS: Ciprofloxacin 500 MG Tablet PO (23:06)
[2018-04-03] MEDS: Metoprolol Tartrate 25 MG Tablet PO (23:06)
[2018-04-04] VITALS (7 sets, daily range): BP systolic 133–137; BP diastolic 66–68; PULSE 72–108; RESP 16–18; TEMP 36.5–36.6; O2SAT 96–99
[2018-04-04] MEDS: Levothyroxine 88 MCG Tablet PO (06:52)
[2018-04-04] MEDS: Ipratropium/Albuterol Sulfate 3 ML AMPUL.NEB INHALATION (07:05)
[2018-04-04] MEDS: Budesonide Respules 0.5 MG/2 ML AMPUL.NEB. INHALATION (07:05)
[2018-04-04] MEDS: Multivitamins,Therapeutic Tablet 1 TABLET PO (08:34)
[2018-04-04] MEDS: Iron Polysaccharide Complex 150 MG CAPSULE PO (08:34)
[2018-04-04] MEDS: Ferrous Gluconate 325 MG Tablet PO (08:34)
[2018-04-04] MEDS: Jevity 1.5. 1,000 ML Bottle 240 ML GT (08:34)
[2018-04-04] MEDS: Mupirocin Ointment 22gm Tube 1 APPLIC NASAL (10:36)
[2018-04-04] MEDS: Metoprolol Tartrate 25 MG Tablet PO (10:37)
[2018-04-04] MEDS: Ciprofloxacin 250 MG Tablet PO (10:37)
[2018-04-04] MEDS: dilTIAZem CD 240 MG Capsule PO (10:37)
[2018-04-04] MEDS: APIXABAN 2.5 MG TABLET PO (10:37)
[2018-04-04] MEDS: Ciprofloxacin 500 MG Tablet PO (10:37)
[2018-04-04] MEDS: Magnesium Oxide 400 MG Tablet PO (10:37)
--- NOTE | 2018-04-04 10:52 | CASEMGMT ---
Call to [facility] and Bianca nascimento benefits are still pending but aware that pt ready for discharge and can have start of care this evening, voices understanding. Bianca [facility] is working on benefits and will notify this RN CM as soon as obtained. Eli [facility] aware at this time, voices understanding. Mike LUA CM
--- NOTE | 2018-04-04 13:50 | CASEMGMT ---
This STONEY RENEE received call from [facility] and they states that benefits went through and cost will be $101.66/week for supplies and $20/day as her supplement does not cover any. So pt's weekly cost will be $242 and per Bianca at [facility], they will call pt to notify and obtain first payment. Bianca aware that pt to be discharged with start of care tonight and voices understanding. Alycia LUA aware of all and voices understanding. Mike LAU CM
--- NOTE | 2018-04-05 15:32 | CASEMGMT ---
STONEY RENEE Discharge Follow-up Phone Call: DEB: 16 Strata: 4 Call Date: 04/05/18 Discharge Date: 04/04/18 Time of Call: 1530 Duration: 5 min Admitting Diagnosis: Persistent tracheobronchitis STONEY RENEE completed follow-up phone call after recent hospitalization. Patient states that she is doing a little better. Patient states that her IV ATBs were delivered to her house and [facility] has been there to assist with IV ATB. Patient feels comfortable with completing IV ATB. 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 Patient is aware to make follow-up appt with PCP and ID. Patient had question regarding her Cardizem dosing, per instructions patient to take 360mg PO daily which patient thought that is what she was told. STONEY RENEE advised patient that if she had further concerns regarding her discharge medications to follow-up with PCP.
== END 2018-04-04 14:01 | disposition home health service (06) | DRG 190 ==
LOC: ED 17:58 → PCU 21:44
PROVIDERS: Nurse Practitioner Family; Admitting Provider Hospitalist; Emergency Provider Emergency Medicine; Family Provider Family Medicine; PCP Family Medicine; Visit Provider Hospitalist
DX: J47.0 Bronchiectasis with acute lower respiratory infection (principal); E43 Unspecified severe protein-calorie malnutrition; J96.21 Acute and chronic respiratory failure with hypoxia; J44.0 Chronic obstructive pulmonary disease with (acute) lower respiratory infection; Z68.1 Body mass index [BMI] 19.9 or less, adult; I51.81 Takotsubo syndrome; J20.9 Acute bronchitis, unspecified; J01.80 Other acute sinusitis; B96.5 Pseudomonas (aeruginosa) (mallei) (pseudomallei) as the cause of diseases classified elsewhere; B95.62 Methicillin resistant Staphylococcus aureus infection as the cause of diseases classified elsewhere; G47.33 Obstructive sleep apnea (adult) (pediatric); I27.20 Pulmonary hypertension, unspecified; I48.2 Chronic atrial fibrillation; E03.9 Hypothyroidism, unspecified; Z90.2 Acquired absence of lung [part of]; F32.9 Major depressive disorder, single episode, unspecified; Z93.1 Gastrostomy status; I10 Essential (primary) hypertension
CPT/HCPCS: 36415; 36569; 71045; 71046; 80048; 80053; 83880; 84484; 85025; 87040; 87070; 87077; 87186; 87205; 93005; 94640; 94667; 94668; 97116; 97162; 97165; 97530; 97802; 97803; 99284; J7030; J7050; A4216; J2405

== ENCOUNTER → 2018-04-14 12:02 | Outpatient (CLI) | payer MEDICARE, OTHER, SELFPAY ==
[2018-04-14] MEDS: Alteplase 2 MG/2 ML Vial IV (12:32)
== END ==
PROVIDERS: Family Provider Family Medicine; PCP Family Medicine; Visit Provider Internal Medicine Infectious Disease
DX: Z45.2 Encounter for adjustment and management of vascular access device (principal)
CPT/HCPCS: 96374; 36593; J2997; A4216

== ENCOUNTER 2018-04-17 12:57 | Outpatient (RCR) | payer MEDICARE, OTHER, SELFPAY ==
[2018-04-17 13:26] LABS: Hematocrit 38.6 % (37-47); Hemoglobin 12.3 g/dl (12.0-15.0); Mean Corp Hgb Conc 31.9 g/gl (32-36); Mean Corpuscular Hgb 27.1 pg (27.0-32.0); Mean Platelet Vol. 11.3 fl (6.2-12.0); Platelet Count 238 K/mm3 (150-450); RBC Distribution Width CV 13.1 % (11.6-14.6); RBC Distribution Width SD 40.8 fl (35.1-43.9); Red Blood Count 4.54 M/mm3 (4.2-5.4); White Blood Count 8.4 K/mm3 (4.4-11.0)
[2018-04-17 13:27] LABS: Scan Indicated on CBC? Y/N NO
[2018-04-17 13:38] LABS: AST(SGOT) 35 U/L (15-37); Alanine Aminotransfer ALT/SGPT 44 U/L (13-56); Albumin, Serum 2.9 g/dL (3.2-5.0); Alkaline Phosphatase 390 U/L (45-117); Anion Gap 4 (5-15); BUN 14 mg/dL (7-18); BUN/Creat Ratio 28.8 RATIO (10-20); Bilirubin, Direct 0.16 mg/dL (0.00-0.30); Calcium,Total 8.9 mg/dL (8.5-10.1); Chloride 99 mmol/L (98-107); Creatinine, Serum 0.49 mg/dL (0.55-1.02); EST Glomerular Filtration Rate 132 mL/min (>60); Est Glom Filt Rate - Afr Amer 160 mL/min (>60); Globulin 4.8 g/dL (2.2-4.2); Glucose 97 mg/dL (74-106); Potassium 4.1 mmol/L (3.5-5.1); Protein, Total 7.7 g/dL (6.4-8.2); Sodium Level 135 mmol/L (136-145); Vancomycin, Trough Level 7.6 ug/mL (5.0-15.0)
== END 2018-05-12 23:59 ==
LOC: HHLAB 12:57
PROVIDERS: Family Provider Family Medicine; PCP Family Medicine; Visit Provider Internal Medicine Infectious Disease
DX: A49.02 Methicillin resistant Staphylococcus aureus infection, unspecified site (principal); J32.9 Chronic sinusitis, unspecified
CPT/HCPCS: 80048; 80076; 80202; 85027

== ENCOUNTER 2018-04-17 13:08 | Outpatient (RCR) | payer MEDICARE, OTHER, SELFPAY ==
[2018-04-10 13:00] LABS: Hematocrit 37.2 % (37-47); Hemoglobin 11.7 g/dl (12.0-15.0); Mean Corp Hgb Conc 31.5 g/gl (32-36); Mean Corpuscular Hgb 27.3 pg (27.0-32.0); Mean Corpuscular Volume 86.9 fL (81-99); Mean Platelet Vol. 11.9 fl (6.2-12.0); Platelet Count 133 K/mm3 (150-450); RBC Distribution Width CV 13.7 % (11.6-14.6); RBC Distribution Width SD 43.2 fl (35.1-43.9); Red Blood Count 4.28 M/mm3 (4.2-5.4); Scan Indicated on CBC? Y/N NO; White Blood Count 5.9 K/mm3 (4.4-11.0)
[2018-04-10 13:06] LABS: AST(SGOT) 38 U/L (15-37); Alanine Aminotransfer ALT/SGPT 41 U/L (13-56); Albumin, Serum 2.8 g/dL (3.2-5.0); Alkaline Phosphatase 385 U/L (45-117); Anion Gap 5 (5-15); BUN 15 mg/dL (7-18); BUN/Creat Ratio 31.6 RATIO (10-20); Bilirubin, Direct 0.14 mg/dL (0.00-0.30); Chloride 101 mmol/L (98-107); Creatinine, Serum 0.47 mg/dL (0.55-1.02); EST Glomerular Filtration Rate 136 mL/min (>60); Est Glom Filt Rate - Afr Amer 165 mL/min (>60); Globulin 4.6 g/dL (2.2-4.2); Glucose 139 mg/dL (74-106); Potassium 4.1 mmol/L (3.5-5.1); Protein, Total 7.4 g/dL (6.4-8.2); Sodium Level 135 mmol/L (136-145); Vancomycin, Trough Level 8.4 ug/mL (5.0-15.0)
== END 2018-04-17 13:11 | disposition home or self-care (01) ==
LOC: HHLAB 13:08
PROVIDERS: Family Provider Family Medicine; PCP Family Medicine; Visit Provider Internal Medicine Infectious Disease
DX: A49.02 Methicillin resistant Staphylococcus aureus infection, unspecified site (principal); J32.9 Chronic sinusitis, unspecified
CPT/HCPCS: 80048; 80076; 80202; 85027

== ENCOUNTER → 2018-04-24 13:42 | Outpatient (CLI) | payer MEDICARE, OTHER, SELFPAY ==
[2018-04-24] MEDS: Alteplase 2 MG/2 ML Vial IV (14:04)
== END ==
PROVIDERS: Family Provider Family Medicine; PCP Family Medicine; Visit Provider Internal Medicine Infectious Disease
DX: Z45.2 Encounter for adjustment and management of vascular access device (principal)
CPT/HCPCS: 96374; 36593; J2997; A4216

== ENCOUNTER 2018-04-25 13:06 | Outpatient (RCR) | payer MEDICARE, OTHER, SELFPAY ==
[2018-04-25 13:51] LABS: Hematocrit 36.8 % (37-47); Hemoglobin 11.6 g/dl (12.0-15.0); Mean Corp Hgb Conc 31.5 g/gl (32-36); Mean Corpuscular Hgb 26.9 pg (27.0-32.0); Mean Corpuscular Volume 85.2 fL (81-99); Mean Platelet Vol. 11.3 fl (6.2-12.0); Platelet Count 207 K/mm3 (150-450); RBC Distribution Width CV 13.1 % (11.6-14.6); RBC Distribution Width SD 40.4 fl (35.1-43.9); Red Blood Count 4.32 M/mm3 (4.2-5.4); White Blood Count 8.6 K/mm3 (4.4-11.0)
[2018-04-25 13:53] LABS: Scan Indicated on CBC? Y/N NO
[2018-04-25 13:59] LABS: AST(SGOT) 51 U/L (15-37); Alanine Aminotransfer ALT/SGPT 58 U/L (13-56); Albumin, Serum 2.9 g/dL (3.2-5.0); Alkaline Phosphatase 410 U/L (45-117); Anion Gap 9 (5-15); BUN 11 mg/dL (7-18); BUN/Creat Ratio 23.2 RATIO (10-20); Calcium,Total 8.9 mg/dL (8.5-10.1); Chloride 99 mmol/L (98-107); Creatinine, Serum 0.47 mg/dL (0.55-1.02); EST Glomerular Filtration Rate 136 mL/min (>60); Est Glom Filt Rate - Afr Amer 165 mL/min (>60); Globulin 4.7 g/dL (2.2-4.2); Glucose 136 mg/dL (74-106); Potassium 3.8 mmol/L (3.5-5.1); Protein, Total 7.6 g/dL (6.4-8.2); Sodium Level 138 mmol/L (136-145); Vancomycin, Trough Level 14.4 ug/mL (5.0-15.0)
== END 2018-05-12 23:59 ==
LOC: HHLAB 13:06
PROVIDERS: Family Provider Family Medicine; PCP Family Medicine; Visit Provider Internal Medicine Infectious Disease
DX: J01.81 Other acute recurrent sinusitis (principal); B95.62 Methicillin resistant Staphylococcus aureus infection as the cause of diseases classified elsewhere
CPT/HCPCS: 80048; 80076; 80202; 85027

== ENCOUNTER 2018-09-04 15:51 | Emergency (ER) | payer MEDICARE, OTHER, SELFPAY ==
[2018-09-04 15:51] VITALS: BMI 16.7
[2018-09-04 15:52] VITALS: BP 118/83; PULSE 105; RESP 22; TEMP 36.8; O2SAT 95; BMI 16.1
--- NOTE | 2018-09-04 16:39 | RAD_ITS ---
STUDY: X-RAY CHEST REASON FOR EXAM: Female, 72 years old. Cough. History of right upper lobectomy. TECHNIQUE: Frontal and lateral views of the chest COMPARISON: 03/30/2018. FINDINGS: There are stable postsurgical changes on the right with a stable cavitary lesion in the right upper hemithorax. There are stable chronic increased interstitial markings noted throughout both lungs. There are no focal infiltrates. The heart is normal in size. The visualized osseous structures are within normal limits. RAD/Chest PA and Lateral IMPRESSION: No acute thoracic pathology. Stable chronic findings, as above. Electronically Signed: Cosmo Foster, at 17:43 EST Tel , Service support ,
--- NOTE | 2018-09-04 16:39 | EKG12_ITS ---
Test Reason : SOB Blood Pressure : / mmHG Vent. Rate : 111 BPM Atrial Rate : 089 BPM P-R Int : 000 ms QRS Dur : 092 ms QT Int : 336 ms P-R-T Axes : 000 054 082 degrees QTc Int : 456 ms Atrial fibrillation with rapid ventricular response Low voltage QRS Nonspecific T wave abnormality Abnormal ECG Confirmed by KAISER MALLOY ([id number]), news videotape editor CRISTIAN CAMARA ([id number]) on 09/18/2018 1:17:21 PM Referred By: KUSUM Confirmed By:KAISER MALLOY
--- NOTE | 2018-09-04 16:46 | ED.DCSUM_ITS ---
History of Present Illness Chief Complaint: Shortness of Breath Informant: Patient Onset: Weeks - 3 Context: Gradual Onset Timing: Continuous Quality: tightness/wheezing Location: chest Current Severity: Moderate Maximum Severity: Severe Worsened by: exertion and coughing Relieved by: neb treatments Narrative: Patient states she has end-stage COPD for which she is on hospice, she has had an occasionally productive cough with shortness of breath gradual in onset for about 3 weeks, has been on 3 rounds of antibiotics, without any help. She states that she spit in a cup recently and they did a culture, and it came back positive for MRSA and Pseudomonas, so hospice knows that she is in the ER to seek further treatment, and the revoked hospice as of today. She states she does not have any new symptoms, but nothing is getting better. 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 (9) History of lobectomy of lung Status: Chronic (10) NEPTALI (obstructive sleep apnea) Status: Chronic (11) Pulmonary hypertension Status: Chronic (12) Severe malnutrition Status: Chronic (13) Takotsubo cardiomyopathy Status: Chronic Comment: EF in August of 2016 was 45-50%, previously 20% Past Medical History - Allergies and Home Meds Allergies/Adverse Reactions: Allergies sulfamethoxazole [From Bactrim] Allergy (Verified 03/30/18 16:52) Hives PT STATES NOT ALLERGIC tetracycline Allergy (Verified 03/30/18 16:52) Hives trimethoprim [From Bactrim] Allergy (Verified 03/30/18 16:52) Hives verapamil Allergy (Verified 03/30/18 16:52) Unknown itraconazole Adverse Reaction (Verified 03/30/18 16:52) chest tightness w/ upper and loewr extremity weakness warfarin [From Coumadin] Adverse Reaction (Verified 03/30/18 16:52) gi bleed SODIUM PENTATHOL Allergy (Uncoded 03/30/18 16:52) jaundice/hives JAUNDICE Primary Care Physician: Christo Wilde MD [Primary Care Provider] - Surgical History: cholecystectomy, hysterectomy, - - Lobectomy for aspergillosis. Lives: Spouse/ Significant Other Smoking Status: Never smoker - Family History Maternal Family History: Family History (Last Reviewed 03/30/18 @ 23:01 by Ludwin Branch MD) Father Heart disease Family History: Reports: No pertinent history Paternal Family History: Family History (Last Reviewed 03/30/18 @ 23:01 by Ludwin Branch MD) Father Heart disease Family History: Reports: Cancer Review of Systems General: Reports: Malaise. Denies: Chills, Fever Eyes: Denies: Visual changes - bilaterally, Diplopia ENT: Denies: Rhinorrhea, Sore throat Cardiovascular: Reports: Chest pain. Denies: Palpitations, Heart racing Respiratory: Reports: Dyspnea, Cough, Sputum - occ green, Dyspnea on exertion. Denies: Orthopnea Gastrointestinal: Denies: Abdominal pain, Nausea, Vomiting, Diarrhea Musculoskeletal: Denies: Back pain, Swelling, Extremity Pain Skin: Denies: Rash, Wounds Neurological: Denies: Headache, Weakness, Parasthesia Psych: Denies: Suicidal thoughts, Suicidal ideations Endocrine: Denies: Heat intolerance, Cold intolerance Hematologic: Reports: Easy bruising, Easy bleeding Allergy: Denies: Swelling of the mouth, Swelling of the tongue Physical Exam Vital Signs/Narrative: Vital Signs Temp Pulse Resp BP Pulse Ox 09/04/18 15:52 98.2 F 105 H 22 H 118/83 H 95 Inital Vital Signs reviewed: Yes General: Well developed, Cachectic. Negative for: Well nourished Head: Normocephalic, Atraumatic Eyes: Perrl, EOMI ENT: Moist mucous membranes, No rhinorrhea. Negative for: Sinus tenderness Neck: Supple, Nontender, No lymphadenopathy, No JVD Cardiovascular: No murmurs, Irregular. Negative for: Tachycardia Respiratory: No distress - although mildly tachypneic, Rales - R base, Rhonchi - bilat, Wheezing - mild exp bilat Abdomen: Soft, Nontender, Nondistended, Normal bowel sounds Back: Nontender, Normal Inspection Extremities: Nontender, No edema Skin: Normal color, No rash Neurological: Alert, Oriented x3, Cranial nerves II-XII grossly intact, Normal Strength, Normal Sensation Psychological: Normal affect Diagnostic/Tx/Re-eval Impressions Chest X-Ray 09/04/18 16:39 IMPRESSION: No acute thoracic pathology. Stable chronic findings, as above. Electronically Signed: Cosmo Foster, at 17:43 EST Tel , Service support , 09/04/18 16:39 Chest PA and Lateral [RAD] Stat 09/04/18 16:55 Mucosa - Nose Influenza Types A,B Direct FA ([facility]) - Final Laboratory Results 09/04/18 09/04/18 09/04/18 17:05 17:05 17:05 WBC 15.1 H RBC 3.96 L Hgb 11.1 L Hct 35.2 L MCV 88.9 MCH 28.0 MCHC 31.5 L RDW 13.9 RDW Differential 45.5 H Plt Count 263 MPV 9.8 Immature Gran % (Auto) 0.400 Neut % (Auto) 91.4 H Lymph % (Auto) 3.8 L [place] % (Auto) 4.3 Eos % (Auto) 0.0 Baso % (Auto) 0.1 Absolute Neuts (auto) 13.8 H Absolute Lymphs (auto) 0.58 L Total Counted Not Reportable Differential Comment Platelet Estimate ADEQUATE RBC Morphology N CHROM Anisocytosis 1+ Sodium 127 L Potassium 4.8 Chloride 85 L Carbon Dioxide 39.0 H Anion Gap 3 L BUN 17 Creatinine 0.47 L Estim Creat Clear Calc 35.34 Est GFR (MDRD) Af Amer 165 Est GFR (MDRD) Non-Af 136 BUN/Creatinine Ratio 35.9 H Glucose 185 H Lactic Acid 1.3 Calcium 9.0 Troponin I < 0.015 B-Natriuretic Peptide 09/04/18 17:05 WBC RBC Hgb Hct MCV MCH MCHC RDW RDW Differential Plt Count MPV Immature Gran % (Auto) Neut % (Auto) Lymph % (Auto) [place] % (Auto) Eos % (Auto) Baso % (Auto) Absolute Neuts (auto) Absolute Lymphs (auto) Total Counted Differential Comment Platelet Estimate RBC Morphology Anisocytosis Sodium Potassium Chloride Carbon Dioxide Anion Gap BUN Creatinine Estim Creat Clear Calc Est GFR (MDRD) Af Amer Est GFR (MDRD) Non-Af BUN/Creatinine Ratio Glucose Lactic Acid Calcium Troponin I B-Natriuretic Peptide 225.3 H - Rhythm Strip Rhythm Strip: A-fib Rate: 110 Ectopy: None - EKG Initial EKG Interpretation: No Acute Injury Pattern, Atrial Fibrillation, Non-Specific ST Changes - Medical Decision Making After a sudden nebulizer treatments, the patient states she is breathing much better. Her chest x-ray shows no acute process, stable chronic findings are noted. Her sodium is acutely low at 127, her last one was about 4 months ago and was 138. She has had no altered mental status or seizures, I discussed the findings with her, she was given slow sodium chloride IV here. Other than a leukocytosis with a leftward shift, likely because of taking prednisone chronically daily, the rest of her workup is unremarkable. We discussed her culture results of sputum, that were obtained by the patient spitting into a cup. This is nonspecific. 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 These do not necessarily indicate the process of an acute infection. Furthermore, the Pseudomonas is sensitive to ciprofloxacin, she already finished a course of that and did not improve, supporting this theory. She was also started on rifampin recently, in addition to the Ceftin that she is still on, presumably as a result of this culture showing that the MRSA is sensitive to rifampin. At this time I see no reason to restart Cipro, I think she should continue the antibiotics that she is on, and I think a prednisone burst with a taper back down to her 10 mg once daily along with discharge home is reasonable. I discussed these options with the patient and she wants to go home and feels better enough to do so. I discussed with the hospice nurse on-call, who is amenable to this plan, and the plan will be to discuss with her over the phone tomorrow to see how she is doing, and readmit her to hospice as soon as possible. This was all discussed with the patient and her and they are comfortable with this overall plan, and they are encouraged to return for worsening problems. ED Disposition - Plan for ED Patient: Disposition: Home or Assisted Living Chief Complaint: Shortness of Breath Diagnosis: Hyponatremia, COPD with exacerbation, Bronchiectasis Instructions: ED COPD Flare, Discharge Instructions for Bronchiectasis Prescriptions: Prednisone 10 mg PO UD #29 tablet Referrals: Christo Wilde MD [Primary Care Provider] - 3-5 Days if not improving Alex Schneider DO [STAFF PHYSICIAN] - 3-5 Days if not improving Additional Instructions: Continue taking your medicines as prescribed, except replace your prednisone with the new prescription until finished, then continue your prednisone 10 mg daily the day after you complete the new prednisone prescription.
[2018-09-04 16:51] VITALS: PULSE 118; RESP 20
[2018-09-04] MEDS: Albuterol 2.5 MG/3 ML VIAL.NEB. INHALATION ×2 (16:51)
[2018-09-04] MEDS: Ipratropium/Albuterol Sulfate 3 ML AMPUL.NEB INHALATION (16:51)
[2018-09-04 16:54] VITALS: PULSE 114; RESP 38; TEMP 36.9; O2SAT 98
[2018-09-04 17:02] VITALS: O2SAT 96
[2018-09-04] MEDS: 0.9% Normal Saline 1,000 ML 999 ML IV (17:07)
[2018-09-04] MEDS: MethylPREDNISolone 125 MG/2 ML Vial IV (17:07)
[2018-09-04 17:33] LABS: Anion Gap 3 (5-15); BUN 17 mg/dL (7-18); BUN/Creat Ratio 35.9 RATIO (10-20); Chloride 85 mmol/L (98-107); Creatinine, Serum 0.47 mg/dL (0.55-1.02); EST Glomerular Filtration Rate 136 mL/min (>60); Est Glom Filt Rate - Afr Amer 165 mL/min (>60); Estimated Creatinine Clearance 35.34 ml/min; Glucose 185 mg/dL (74-106); Potassium 4.8 mmol/L (3.5-5.1); Sodium Level 127 mmol/L (136-145)
[2018-09-04 17:40] LABS: Absolute Lymphocyte Count 0.58 X10^3/ul (0.83-4.51); Absolute Neutrophil Count 13.8 X10^3/uL (2.0-7.7); Basophil# 0.01 X10^3/uL; Basophil% 0.1 % (0-1); Hematocrit 35.2 % (37-47); Hemoglobin 11.1 g/dl (12.0-15.0); Lymphocyte # 0.58 X10^3/ul (4.0); Lymphocyte % 3.8 % (19-41); Mean Corp Hgb Conc 31.5 g/gl (32-36); Mean Corpuscular Volume 88.9 fL (81-99); Mean Platelet Vol. 9.8 fl (6.2-12.0); Monocyte# 0.65 X10^3/uL; Monocyte% 4.3 % (0-10); Neutrophil % 91.4 % (47-70); Platelet Count 263 K/mm3 (150-450); RBC Distribution Width CV 13.9 % (11.6-14.6); RBC Distribution Width SD 45.5 fl (35.1-43.9); Red Blood Count 3.96 M/mm3 (4.2-5.4); White Blood Count 15.1 K/mm3 (4.4-11.0)
[2018-09-04 17:41] LABS: Differential Indicated SCAN CRITERIA MET; POSITIVE COUNT NO; POSITIVE DIFFERENTIAL YES; POSITIVE MORPHOLOGY NO
[2018-09-04 17:42] LABS: Lactic Acid 1.3 mmol/L (0.4-2.0)
[2018-09-04 17:48] LABS: BNP,B-Type NATRIURETIC PEPTIDE 225.3 pg/mL (0-100)
[2018-09-04 18:00] VITALS: PULSE 114; RESP 20; TEMP 36.7; O2SAT 100
[2018-09-04 18:00] LABS: Anisocytosis 1+; Platelet Estimate ADEQUATE (ADEQ); Red Cell Morphology N CHROM NORMAL (NORM C&C)
[2018-09-04 19:38] VITALS: BP 140/92; PULSE 124; RESP 21; O2SAT 98
== END 2018-09-04 19:39 | disposition home or self-care (01) ==
PROVIDERS: Emergency Provider Emergency Medicine; Family Provider Family Medicine; PCP Family Medicine
DX: E87.1 Hypo-osmolality and hyponatremia (principal); J44.1 Chronic obstructive pulmonary disease with (acute) exacerbation; J47.9 Bronchiectasis, uncomplicated; G93.41 Metabolic encephalopathy; F32.9 Major depressive disorder, single episode, unspecified; I48.2 Chronic atrial fibrillation; G47.33 Obstructive sleep apnea (adult) (pediatric); I27.20 Pulmonary hypertension, unspecified; E43 Unspecified severe protein-calorie malnutrition; I51.81 Takotsubo syndrome; Z86.19 Personal history of other infectious and parasitic diseases; Z86.14 Personal history of Methicillin resistant Staphylococcus aureus infection; Z90.49 Acquired absence of other specified parts of digestive tract; Z90.2 Acquired absence of lung [part of]; Z79.01 Long term (current) use of anticoagulants; Z79.899 Other long term (current) drug therapy
CPT/HCPCS: 71046; 80048; 83605; 83880; 84484; 85025; 87040; 87804; 93005; 94640; 96361; 96374; 99284; J7030; A4216

== ENCOUNTER → 2018-11-17 17:10 | Outpatient (CLI) | payer MEDICARE, OTHER, SELFPAY ==
[2018-11-17 18:06] LABS: ALB/GLOB Ratio 0.7 RATIO (0.9-2.4); AST(SGOT) 80 U/L (15-37); Alanine Aminotransfer ALT/SGPT 74 U/L (13-56); Albumin, Serum 2.5 g/dL (3.2-5.0); Alkaline Phosphatase 678 U/L (45-117); Amylase 47 U/L (25-115); Anion Gap 7 (5-15); BUN 28 mg/dL (7-18); BUN/Creat Ratio 30.2 RATIO (10-20); Chloride 100 mmol/L (98-107); Creatinine, Serum 0.93 mg/dL (0.55-1.02); EST Glomerular Filtration Rate 63 mL/min (>60); Est Glom Filt Rate - Afr Amer 76 mL/min (>60); Globulin 3.7 g/dL (2.2-4.2); Glucose 213 mg/dL (74-106); Potassium 3.9 mmol/L (3.5-5.1); Protein, Total 6.2 g/dL (6.4-8.2); Sodium Level 137 mmol/L (136-145)
== END ==
PROVIDERS: Family Provider Family Medicine; PCP Family Medicine; Referring Provider Family Medicine; Visit Provider Family Medicine
DX: R10.9 Unspecified abdominal pain (principal); R17 Unspecified jaundice
CPT/HCPCS: 80053; 82150

== ENCOUNTER → 2018-11-21 12:50 | Outpatient (CLI) | payer MEDICARE, OTHER, SELFPAY ==
[2018-11-21 13:23] LABS: AST(SGOT) 20 U/L (15-37); Alanine Aminotransfer ALT/SGPT 50 U/L (13-56); Albumin, Serum 2.4 g/dL (3.2-5.0); Alkaline Phosphatase 611 U/L (45-117); Bilirubin, Direct 2.66 mg/dL (0.00-0.30); Globulin 3.5 g/dL (2.2-4.2); Protein, Total 5.9 g/dL (6.4-8.2)
== END ==
PROVIDERS: Family Provider Family Medicine; PCP Family Medicine; Referring Provider Family Medicine; Visit Provider Family Medicine
DX: R94.5 Abnormal results of liver function studies (principal); E80.7 Disorder of bilirubin metabolism, unspecified
CPT/HCPCS: 80076